=== PATIENT | female | born 1990 | race Caucasian/White ===

== ENCOUNTER 2022-08-17 08:31 | Emergency (ER) | payer SELFPAY ==
--- OUTSIDE RECORDS SUMMARY | 2022-08-17 08:37 | XMS REPORT | Continuity of Care Document ---
:1990 Author Organization [facility] t Address [address] [place] [address] Dr. [address] [place] [address] Care Team Providers Name Role Phone Asked, No Pcp Primary Care Physician Unavailable Abimbola Lincoln MD Attending Clinician Yony Vasques MD Attending Clinician Regina Ruiz Attending Clinician Unavailable Shreyas Craig DO Attending Clinician [phone] Rosalind Cueto MD Attending Clinician Candace Boo MD Attending Clinician [phone] Candace Toribio Attending Clinician Unavailable Andi Mojica MD Attending Clinician Torrey Javed Attending Clinician Unavailable QUENTIN BARAJAS Attending Clinician Unavailable MD KENNA LOPEZ Attending Clinician Unavailable ANDI LEÓN Attending Clinician Unavailable DO DANILO SHEPHERD Attending Clinician Unavailable DANILO SHEPHERD Attending Clinician Unavailable KIMBERLY CARROLL Attending Clinician Unavailable DANIELA BECKER Attending Clinician Unavailable Physician, No Primary or Family Admitting Clinician UnavailQUENTIN Talavera Admitting Clinician Unavailable JESSICA, MD KENNA NICOLAS Admitting Clinician Unavailable VASQUES, ANALYTICAL SCIENTIST THUYTRAN THI Admitting Clinician Unavailable Payers Payer Name Policy Type Policy Number Effective Date Expiration Date S ource Problems Condition Condition Condition Status Onset Resolution Last Treating Co mments Source Name Details Category Date Date Treatment Clinician Date Symptomati Symptomati Disease Active 2020-0 M ethodi c c 6-02 [facility] cholelithi 00:00: Ho spita asis asis 00 l Allergies, Adverse Reactions, Alerts Allergy Allergy Status Severity Reaction(s) Onset Inactive Treating Comm ents Source Name Type Date Date Clinician No Known DA Active U 2020-0 [facility] All[facility]ie 7-10 Clear s 00:00: Willson [facility] No Known DA Active U 2020-0 [facility] Allergie 7-10 Clear s 00:00: Willson [facility] No Known DA Active U 2020-0 [facility] Allergie 1-24 Clear s 00:00: Willson [facility] No Known DA Active U 2019-0 [facility] Allergie 5-07 Clear s 00:00: Willson [facility] No Known DA Active U 2019-0 [facility] Allergie 3-20 Clear s 00:00: Willson [facility] No Known DA Active U 2019-0 [facility] Allergie 2-13 Clear s 00:00: Willson [facility] No Known DA Active U 2017-1 [facility] Allergie 1-27 Clear s 00:00: Willson [facility] No Known DA Active U 2009-0 [facility] Contrast 3-26 [place] Allergie 00:00: e s [facility] No Known DA Active U 2009-0 [facility] Drug 3-26 [place] Allergie 00:00: e s [facility] No Known DA Active U 2009-0 [facility] Food 3-26 [place] Allergie 00:00: e s [facility] No Known DA Active U 2009-0 [facility] Other 3-26 [place] Allergie 00:00: e s [facility] No Known DA Active U 2008-1 [facility] Drug 2-09 [place] Intolera 00:00: e [facility] 00 [facility] No Known DA Active U 2008-1 [facility] Drug 2- [place] Int[facility]era 00:00: e [facility] 00 [facility] Family History Family Member Diagnosis Comments Start Date Stop Date Source Natural father Hypertension [facility] Natural father Stroke [facility] mother [facility] Natural mother Hypertension [facility] Paternal grandmother Diabetes [facility] Paternal grandmother Hypertension [facility] Paternal grandmother Stroke [facility] Social History Social Habit Start Date Stop Date Quantity Comments Source History of Current smoker [facility] Alcohol intake 2022-06-23 2022-06-23 Current [facility] 00:00:00 00:00:00 non-drinker of Hospital alcohol (finding) Tobacco use and 2022-01-02 2022-01-02 [facility]user Hospital Sex Assigned At [birth year] [facility] 00:00[facility]00 00:00:00 Hospital Smoking Status Start Date Stop Date Source Ex-smoker 2022-01-02 00:00:00 2022-01-02 00:00:00 [facility] Medications Ordered Filled Start Stop Current Ordering Indication Dosage Frequency Signature Comments Components Source Medication Medication Date Date Medication? Clinician (SIG) Name Name ondansetron 2021- No 4mg Q8H Take 1 Met hodi ODT 06-23 10-02 tablet (4 st (ZOFRAN-ODT 00:00: 04:59 mg total) Hospita ) 4 MG 00 :00 by mouth l disintegrat every 8 ing tablet (eight) hours as needed for nausea or vomiting for up to 5 days. butalbital- 2021- No 1{tbl} Q6H Take 1 M ethodi acetaminoph 06-23 09-[address] en-caff 00:00: 04:59 mouth Hospita (Esgic) 00 :00 every 6 l 50-325-40 (six) mg per hours as tablet needed for headaches for up to 3 days. metoclopram 2021- No 10mg Q8H Take 1 Met hodi jessica 8-17 08-25 tablet (10 st (REGLAN) 10 00:00: 04:59 mg total) Hospita MG tablet 00 :00 by mouth l every 8 (eight) hours as needed (headache) for up to 7 days. ondansetron 2021- No 4mg Q12H Take 1 Met hodi (ZOFRAN) 4 6-20 07-21 tablet (4 st MG tablet 00:00: 04:59 mg total) Ho spita 00 :00 by mouth l every 12 (twelve) hours as needed for nausea for up to 30 days. levoFLOXaci 2021- No 750mg QD Take 1 Me thodi n 03-[address] (Levaquin) 00:00: 04:59 (750 mg Hos rain 750 MG 00 :00 total) by l tablet mouth daily for 5 days. acetaminoph No 5mL Q6H Take 5 mL Methodi en with 03-[address] codeine 00:00: 04:59 every 6 Hospit a (acetaminop 00 :00 (six) l hen-codeine hours as ) 120-12 needed for mg/5 mL moderate solution pain or severe pain for up to 5 days .acute pain. benzonatate Yes 100mg Q.[id number] Take 1 Methodi (TESSALON) 03-[id number] 100 MG 00:00: 3D (100 mg Hospita capsule 00 total) by l mouth 3 (three) times a day as needed for cough. albuterol 2021- No 2{puff} Q4H Inhale 2 Methodi (PROAIR 03-[address] HFA) 90 00:00: 04:59 every 4 Hospit a mcg/actuati 00 :00 (four) l on inhaler hours as needed for wheezing or shortness of breath for up to 30 days. amoxicillin 2021- No 1{tbl} Q12H Take 1 M ethodi -pot 11-25-[address] clavulanate 00:00: 05:59 mouth Hosp kerry (AUGMENTIN) 00 :00 every 12 l 875-125 mg (twelve) per tablet hours for 7 days. traMADoL No 50mg Q8H Take 1 Metho di (ULTRAM) 50 11-25- tablet (50 s t mg tablet 00:00: 05:59 mg total) Ho spita 00 :00 by mouth l every 8 (eight) hours as needed for moderate pain for up to 3 days .acute pain. Vital Signs Vital Name Observation Time Observation Value Comments Source Systolic blood 2022-06-24 02:34:48 139 mm[Hg] [facility] pressure Diastolic blood 2022-06-24 02:34:48 89 mm[Hg] [facility] pressure Heart rate 2022-06-24 02:34:48 79 /min [facility] Body temperature 2022-06-24 02:34:48 36.22 Jerrica [facility] Respiratory rate 2022-06-24 02:34:48 20 /min [facility] Oxygen saturation in 2022-06-24 02:34:48 99 /min [facility] Arterial blood by Pulse oximetry Body height 2022-06-24 00:39:00 162.6 cm [facility] Body weight 2022-06-24 00:39:00 113.399 kg [facility] BMI 2022-06-24 00:39:00 42.91 kg/m2 [facility] Procedures Procedure Date / Time Performing Clinician Source Performed CT HEAD WO CONTRAST 2022-06-24 02:05:05 IsidroAbimbola [facility] CT CERVICAL SPINE WO 2022-06-24 02:04:[address] [facility] CONTRAST ED REFERRAL TO [facility] 2022-05-14 13:11:51 Yony Vasques [facility] ROMAN CATHOLIC PHYSICIAN ORGANIZATION (PCP) ED REFERRAL TO [facility] 2022-03-17 [facility]PCP[facility] ECG 12-LEAD 2022-03-17 05:38:10 [facility] gray Vitaliy ECG ED PRELIMINARY 2022-03-17 04:44:21 [facility] INTERPRETATION Vitaliy HCG QUALITATIVE, URINE 2022-03-17 03:49:00 [facility]ST 2 VW 2022-03-17 03:46:29 [facility] gray Burks GROUP A STREP, RAPID 2022-03-17 03:32:00 [facility] ANTIGEN Vitaliy INFLUENZA ANTIGEN 2022-03-17 03:32:00 [facility] Vitaliy RESPIRATORY PATHOGEN 2022-03-17 03:32:00 [facility] PANEL WITH COVID-19 Vitaliy RT-PCR STREP SCREEN CULTURE 2022-03-17 03:32:00 [facility] CHEST 2 VW 2022-03-03 13:27:46 [facility] INFLUENZA ANTIGEN 2022-03-03 13:02:00 [facility] RESPIRATORY PATHOGEN 2022-03-03 13:02:00 [facility] PANEL WITH COVID-19 RT-PCR ECG ED PRELIMINARY 2022-03-03 12:53:04 Rosalind Cueto [facility] INTERPRETATION ECG 12-LEAD 2022-03-03 12:42:43 [facility] Plan of Care Planned Activity Planned Date Details Comments Source Future Scheduled 2022-07-31 HEPATITIS B VACCINES Met [facility] Test 16:34:59 (1 of 3 - 3-dose series) [code = HEPATITIS B VACCINES (1 of 3 - 3-dose series)] Future Scheduled 2022-07-31 Pneumococcal Vaccine: [facility] Test 16:34:59 Pediatrics (0 to 5 Years) and At-Risk Patients (6 to 64 Years) (1 - PCV) [code = Pneumococcal Vaccine: Pediatrics (0 to 5 Years) and At-Risk Patients (6 to 64 Years) (1 - PCV)] Future Scheduled 2022-07-31 Hepatitis C screening [facility] Test 16:34:59 (procedure) [code = 879970402] Future Scheduled 2022-07-31 Screening for [facility] Test 16:34:59 malignant neoplasm of cervix (procedure) [code = 931251361] Future Scheduled 2022-07-31 COVID-19 VACCINE (2 - [facility] Test 16:34:59 Pfizer series) [code = COVID-19 VACCINE (2 - Pfizer series)] Future Scheduled 2022-07-31 INFLUENZA VACCINE Method [facility] Test 16:34:59 [code = INFLUENZA VACCINE] Encounters Start End Encounter Admission Attending Care Care Encounter Source Date/Time Date/Time Type Type Clinicians Facility Department ID 2019-10-21 Inpatient [facility] FERS [id number] [facility] 19:27:00 60 [facility] 2022-06-23 2022-06-24 Emergency Isidro, 1.2.840.1 [id number] Methodi 20:41:00 06:17:00 Abimbola H [address].1.[address] 3.430.2.7 Hospit a .3.929597 l .8 2022-06-23 2022-06-24 Emergency ISIDRO, [place] [address] [id number] 236 [place] 00:00:00 00:00:00 ABIMBOLA [address] 2022-06-23 2022-06-23 Travel 1.2.840.1 1.2.824.306 1474 [id number] Methodi 00:00:00 00:00:[address] 3.430.2.7 0.2.7.3.698 Ho spita .3.806977 084.8 l .8 2022-05-14 2022-05-14 Emergency Vasques, 1.2.840.1 [id number] [id number] Methodi 08:02:00 08:37:00 [facility] [address] [place] 3.430.2.7 Hospit a .3.950156 l .8 2022-05-14 2022-05-14 Emergency [place] [address] [id number] 42 [place] 00:00:00 00:00:00 [facility] [address] 2022-05-14 2022-05-14 Travel 1.2.840.1 1.2.815.382 4847 [id number] Methodi 00:00:00 00:00:[address] 3.430.2.7 0.2.7.3.698 Ho spita .3.034524 084.8 l .8 2022-05-05 2022-05-05 Emergency EM Dark, Regina [facility] CHASITY [id number] [id number] [facility] 09:09:00 09:40:00 47 [facility] 2022-05-05 2022-05-05 Emergency EM Dark, Regina HCACL [facility] G684 430-20 [facility] 09:09:00 09:40:00 [id number] [facility] 2022-03-16 2022-03-17 Emergency Rafa, 1.2.840.1 [id number] 2100 [id number] Methodi 22:26:00 01:14:[address] Mehran 3.430.2.7 Hosp kerry .3.874825 l .8 2022-03-16 2022-03-17 Emergency RAFA, [facility] 064 [id number] 16 [place] 00:00:00 00:00:[address] KALIF [address] 2022-03-03 2022-03-03 Emergency Adelso 1.2.840.1 [id number] Methodi 07:35:00 09:19:00 Rosal[address] 3.430.2.7 Hospit a .3.937116 l .8 2022-03-03 2022-03-03 Emergency ROSALIND LEAVITT [facility] 064 [id number] [place] 00:00:00 00:00:[address] 2022-01-02 2022-01-02 Emergency de Hernandez, 1.2.840.1 [id number] Methodi 17:02:00 18:15:00 Christmo 51742.1.1 988 [facility] 3.430.2.7 Hospit a .3.526523 l .8 2022-01-02 2022-01-02 Emergency DE HERNANDEZ, [facility] 064 [id number] [place] 00:00:00 00:00:[address]ANDACE [address] 2022-01-02 2022-01-02 Travel 1.2.840.1 1.2.940.157 [id number] [id number] Methodi 00:00:00 00:00:[address] 3.430.2.7 0.2.7.3.698 Ho spita .3.166214 084.8 l .8 2021-12-26 2021-12-26 Emergency EM Catarino, [facility] CHASITY [id number] [facility] 09:46:00 12:31:00 Christmo [id number] [facility] 2021-12-26 2021-12-26 Emergency EM Nwori, HCACL HCACL [id number] [facility] 09:46:00 12:31:00 Christopher 88 [facility] 2021-11-25 2021-11-26 Emergency Edwardo, 1.2.840.1 [id number] 2100 [id number] Methodi 22:58:00 00:58:[address]i [address] [place] [address] 3.430.2.7 Hospit a .3.011038 l .8 2021-11-25 2021-11-26 Emergency EDWARDO, [place] [address] [id number] 74 [place] 00:00:00 00:00:00 ANDI 475 Method i 2021-04-10 2021-04-10 Emergency EDWARDO, [place] [address] [id number] 65 [place] 00:00:00 00:00:00 ANDI 595 Method i 2021-04-05 2021-04-06 Emergency EM Tello, HCACL [facility] [id number] [facility] 23:38:00 02:26:00 [place] [id number] [facility] 2021-03-12 2021-03-12 Emergency KENDCHERRY, [place] [address] [id number] 47 [place] 00:00:00 00:00:00 KALIF 048 Method i 2021-02-27 2021-02-28 Inpatient BARAJAS, [place] [address] [id number] [id number] 769 [place] 00:00:00 00:00:00 QUENTIN 164 Method i 2021-02-16 2021-02-16 Emergency LEÓN, [place] [address] [id number] 38 [place] 00:00:00 00:00:00 ANDI 405 Method i 2020-12-28 2020-12-28 Emergency ISIDRO, [place] [address] 350 [id number] 558 [place] 00:00:00 00:00:00 ABIMBOLA 175 Method i 2020-07-14 2020-07-14 Emergency EDWARDO, [place] [address] [id number] 48 [place] 00:00:00 00:00:00 ANDI 585 Method i 2020-05-15 2020-05-15 Emergency NORLUPILLOKY, [place] [address] [id number] [place] 00:00:00 00:00:00 DANILO [address] 2020-04-28 2020-04-28 Emergency GLEN, [facility] 064 [id number] 90 [place] 00:00:00 00:00:00 KIMBERLY Hill [facility] 2020-02-18 2020-02-18 Emergency VANDER [facility] 064 [id number] 64 [place] 00:00:00 00:00:00 Debbie BURKS Method i DANIELA st Results Test Description Test Time Test Comments Results Result Comments Source ECG 12 lead 2022-03-26 20:01:10 Test Item Value Reference Range Interpretation Comme nts Ventricular rate (test code = 253) Atrial rate (test code = 255) DE interval (test code = 266) QRSD interval (test code = 260) QT interval (test code = 264) QTC interval (test code = 265) P axis 1 (test code = 267) QRS axis 1 (test code = 268) T wave axis (test code = 270) EKG impression (test code = 273) Normal sinus rhythm-Cannot rule ou t Anterior infarct , age undetermined-Abnormal ECG-In automated comparison with ECG of 03-MAR-2022 07:42,-No significant change was found- [facility] [id number] 11:15:00 Test Item Value Reference Range Interpretation Comments Strep screen No beta hemolytic Specimen culture Streptococci InformationSpec imen isolate (test isolated Source: Throat Specimen code = 547-0) Site: Not othe rwise specified [facility]- XR WRIST 3 + V [id number] 00:00:00 [facility] LAKEName: REYNA EARLY : 1990 Sex: F FAX: Winnie Martinez [facility] [phone] [place]: St: REG Name: REYNA EARLY [facility] : 1990 Age/S: 31/F [address] [place] [address] Unit #: [id number] Loc: [place] [address] Phys: Winnie Begum Acct: [id number] Dis Date: Status: REG ER PHONE #: [phone] Exam Date: 12/26/2021 1015 FAX #: [phone] Reason: wrist pain EXAMS: CPT CODE: [id number] XR WRIST 3 + [place] LT 40424 PROCEDURE INFORMATION: Exam: XR Left Wrist Exam date and time: 12/26/2021 10:15 AM Age: 31 years old Clinical indication: Other: Wrist pain TECHNIQUE: Imaging protocol: XR Left wrist. Views: 3 or more views. Frontal Oblique Lateral COMPARISON: No relevant prior studies available. FINDINGS: Bones/joints: There is no fracture or dislocation. The joint spaces are maintained. Soft tissues: Unremarkable. There are no radiopaque foreign bodies. Notes: If there is further concern, follow-up radiographs, CT or MRImay be obtained for complete assessment. IMPRESSION: Normal radiographs. at 1120 Reported and signed by: Kendrick Watkins M.D. CC: Winnie Begum Technologist: RT Olivia(Ronit) Trncamryn Date/Time/By: 12/26/2021 (112) : By : Jase Orig Print D/T: S: 12/26/2021 (1121) PAGE 1 Signed Report- XR CHEST 1 [id number] 00:48:00 [facility] JIGNESHName: REYNA EARLY : 1990 Sex: F FAX: Torrey Javed MD [phone] [place]: St: REG FAX: Anca Smyth APR [phone] -- Name: REYNA EARLY [facility] Amari Willson : 1990 Age/S: 30/F [address] [place] [address] Unit #: [id number] Loc: [place] [address] Phys: Anca Smyth Acct: [id number] Dis Date: Status: REG ER PHONE #: [phone] Exam Date: 04/06/202141 FAX #: [phone] Reason: cough EXAMS: CPT CODE: [id number] XR CHEST 1 V 67174 Study: - XR CHEST 1 V 04/06/2021 12:21 AM Patient Name: REYNA EARLY MR: [id number] : 1990; Age: 30 years y/o Female Ordering Physician: Anca Smyth Clinical Indication: cough Comparison: Chest radiograph 10/21/2019 FINDINGS LUNGS: The hypoinflated lungs are clear of consolidation, pleural effusion, and pneumothorax. HEART AND MEDIASTINUM: Normal size heart. LINES: None. OSSEOUS STRUCTURES: No fracture, dislocation, or suspicious focal osseouslesion. OTHER: None. IMPRESSION: Mildly hypoinflated, but clear lungs. SL: TPAINTER-H at 0048 Reported and signed by: Lucas Nicole M.D. CC: Torrey Javed MD; Anca TRIPATHI [facility] Technologist: RT Magalie(R) Trnscrd Date/Time/By: 04/06/2021 (47) : By: [email or web address] Orig Print D/T: S: 04/06/2021 (50) PAGE 1 SignedReportCoronavirus 2018 nCoV [id number] 00:35:00 Test Item Value Reference Range Interpretation Comments Coronavirus 2019 NEGATIVE Negative Negative re sults should be nCoV Bedside (test treated a s presumptive and, code = ifinconsistent with [id number]) clinical signs and symptoms or necessaryfor patient management, nancy uld be tested with an alternativemole cular assay. Negative result s do not preclude GAAJ-CnD-1jijaf tion and should not be u sed as the sole basis forp atient management deci sions. Negative result s should beconsidered in the context of a patient's recent exposures,histo ry, presence of clinical sig ns and symptoms consis tentwith COVID-19. 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 ([facility]OVID-[facility]) RNA [Presence] in Respiratory specimen by KEENAN with probe [id number] 01:13:01 Test Item Value Reference Range Interpretation Comments SARS-CoV-2 (COVID-19) RNA Not detected Not-Detected [Presence] in Respiratory specimen by KEENAN with probe detection (test code = 37561-9) SAUL MARTINEZ [facility]- XR CHEST 2 [id number] 20:09:00 Name: REYNA [facility]LY [facility] : 1990 Age/S:29 /F [address] [facility] Unit#:[id number] Loc: [place] [address] Phys: Enrico Davies MD Dis Date: PHONE #: [phone] Status: REG ER FAX #: [phone] Exam Date: 10/21/2019 Reason: cough EXAMS: CPT CODE: [id number] XR CHEST 2 V 81231 REASON FOR EXAM: cough Exam Order Date: 10/21/2019 7:36 PM Ordering: Enrico Davies MD Attending:Enrico Davies MD Location: PROCEDURE: - XR CHEST 2 V COMPARISON: 12/15/2018 FINDINGS: PA and lateral views of the chest show patchy airspace opacity of the bases. No evidence of effusion. The heart size is within normal limits. Pulmonary vasculatures are unremarkable. The osseous structures are grossly intact. IMPRESSION: Patchy atelectasis at the bases at 2008 Reported and signed by: Jagdish Guaman M.D. CC: Enrico Davies MD Technologist: SALMA MARCIAL RT(R),RDMS,CT Trnscrpt Data: 10/21/2019 (2008) tGAYE Orig Print D/T: S: 10/21/2019 (2011) PAGE 1 Signed ReportCAPILLARY BLOOD [id number] 18:20:00 Test Item Value Reference Range Interpretation Comments TOTAL CO2 CONTENT TEST NOT 24.0-30.0 N Previously reported (test code = TCO2) PERFORMED MMOL/L resul t: 29.0 MMOL/LEdited by : THOMAS on 02/01/19:1808: TCO2 previously repo rted as: 29.0 MMOL/L CAPILLARY BLOOD TEST NOT 7.33-7.45 Previously r eported GAS PH (test code PERFORMED result: 7. 22 Edited = PHC) by: THOMAS o n 02/01/19:1807 02/01/191806: CBG PH previously reported as: 7. 22 L CAPILLARY BLOOD TEST NOT 35-45 Previously r eported GAS PCO2 (test PERFORMED mmHg result: 66 code = PCO2C) mmHgEdited by: THOMAS on 02/01/19:1807: CBG PCO 2 previously repo rted as: 66 *H mmHg CAPILLARY BLOOD TEST NOT 30-50 N Previously r eported GAS PO2 (test code PERFORMED mmHg result: 39 = PO2C) mmHgEdited by: THOMAS on 02/01/19:1807: CBG PO2 previously repo rted as: 39 mmHg CBG HCO3 (test TEST NOT 18-24 Previously re ported code = HCO3C) PERFORMED mmol/L result: 27 mmol/LEdited by : THOMAS on 02/01/19:1807: HCO3C previously repo rted as: 27 H mmol/L CBG BASE EXCESS TEST NOT -4-4 N Previously r eported (test code = BEC) PERFORMED mmol/L result : -1.0 mmol/LEdited by : THOMAS on 02/01/19:1807: BASE EX C previously repo rted as: -1.0 mmol/L CBG O2 SATURATION TEST NOT Previously reported (test code = SATC) PERFORMED % result: 6 3 %Edited by: THOMAS o n 02/01/19:1808: O2 SAT previously repo rted as: 63 % CAPILLARY BLOOD TEST NOT Previously r eported GAS FIO2 (test PERFORMED % result: 21 %E dited code = FIO2C) by: THOMAS on 02/01/19: 9 1808: FIO2 previously repo rted as: 21 % CAPILLARY BLOOD TEST NOT Previously r eported GAS DEL (test code PERFORMED result: I nfantVent = DELC) Edited by: CONSUELO RAYMOND on 02/01/19:1808: DELIVER Y previously repo rted as: InfantVent CAPILLARY BLOOD TEST NOT Performed by GAS PEEP (test PERFORMED cmH2O certified drawing machine operator code = PEEPC) [facility] reported result : [id number] by: [email or web address] on 03/07/19:1820 03/07/191819: PEEP previously repo rted as: cmH2O Perfo rmed by certified drawing machine operator [facility]Previously reported result : 7 [id number] by: THOMAS on 02/01/19:1808: PEEP previously repo rted as: 7 cmH2O Performed by certified opera tor at [facility] CBG TEMPERATURE TEST NOT Previously r eported (test code = PERFORMED F result: 98.0 FE dited TEMPC) by: THOMAS o n 02/01/19:1808: TEMPC previously repo rted as: 98.0 F CAPILLARY BLOOD TEST NOT Previously r eported GAS SITE (test PERFORMED result: Heel Edited code = SITEC) by: THOMAS on 02/01/19:1808: SITE previously repo rted as: Heel VENOUS BLOOD [id number] 18:19:00 Test Item Value Reference Range Interpretation Comments VENOUS BLOOD GAS TEST NOT 7.33-7.45 Previously reported PH (test code = PERFORMED result: 7.11 Edited PHV) by: THOMAS o n 02/01/19:1808: PH previo usly reported as: 7. 11 L VENOUS BLOOD GAS TEST NOT 43-47 Previously reported PCO2 (test code PERFORMED mmHg result: 82 mmHgEdited = PCO2V) by: THOMAS o n 02/01/19:1808: VENOUS PC O2 previously repo rted as: 82 *H mmHg VENOUS BLOOD GAS TEST NOT 10-50 N Previously reported PO2 (test code = PERFORMED mmHg result: 3 2 mmHgEdited PO2V) by: THOMAS o n 02/01/19:1809: VENOUS PO 2 previously repo rted as: 32 mmHg VBG HCO3 (test TEST NOT 22-27 N Previously re ported code = HCO3V) PERFORMED mmol/L result: 26 .4 mmol/LEdited by : THOMAS on 02/01/19:1809: HCO3 prev iously reported as: 26 .4 mmol/L VBG BASE EXCESS TEST NOT -4.0-4.0 N Previously r eported (test code = PERFORMED mmol/L result: -3. 0 HERMAN) mmol/LEdited by : THOMAS on 02/01/19:180902/01/191809: HERMAN previously repo rted as: -3.0 mmol/L VENOUS BLOOD GAS TEST NOT 60-80 Previously reported O2 SAT. (test PERFORMED % result: 42 %Ed ited code = O2SATV) by: THOMAS on 02/01/19:1809: O2 SAT previously repo rted as: 42 L % VENOUS BLOOD GAS TEST NOT Previously reported FIO2 (test code PERFORMED % result: 22 % Edited = FIO2V) by: THOMAS o n 02/01/19:1809: FIO2 prev iously reported as: 22 % VENOUS BLOOD GAS TEST NOT Previously reported DELIVERY (test PERFORMED result: Infan tVent code = DELV) Edited by: CONSUELO RAYMOND on 02/01/19:1809: DEL previ ously reported as: InfantVent VBG VENT MODE TEST NOT Previously rep orted (test code = PERFORMED result: Inf CPA P MODEV) Edited by: CONSUELO RAYMOND on 02/01/19:1809: MODE prev iously reported as: In f CPAP VENOUS BLOOD GAS TEST NOT Performed b y PEEP (test code PERFORMED cmH2O certified drawing machine operator at = PEEPV) [facility] reported result : [id number] by: [email or web address] on 03/07/19:181803/07/191818: VBG PEEP previously reported as: cm H2O Performed by certified [facility] reported result : 5 [id number] by: THOMAS on 02/01/19:1810 02/01/191809: VBG PEEP previously reported as: 5 cmH2O Performed by certified [facility] VENOUS BLOOD GAS TEST NOT Previously reported TEMP (test code PERFORMED F result: 97.6 FEdited = TEMPV) by: THOMAS o n 02/01/19:6989841809: TEMPV previously repo rted as: 97.6 F VENOUS BLOOD GAS Other SITE (test code = SITEV) VENOUS TCO2 TEST NOT Previously repo rted (test code = PERFORMED result: 29 Edit ed by: TCO2V) THOMAS on 02/01/19:1809: TCO2V previously repo rted as: 29 - CT ABD PELVIS [id number] 00:56:00 Name: REYNA EARLY [facility] : 1990 Age/S: 28 / F [address] [place] [address] Unit #: [id number] Loc: [place] [address] Phys: Winnie Begum RESIDENTIAL SUBCONTRACTOR Acct: [id number] Dis Date: Status: REG ER PHONE #: [phone] Exam Date: 02/07/201936 FAX #: [phone] Reason: s/p , upper abd pain and fevers. EXAMS: CPT CODE: [id number] CT ABD PELVIS W/CONT 73672 EXAM: CT, CT ABDOMEN PELVIS W CONTRAST: 02/07/2019, 0039 hours HISTORY: s/p , upper abd pain and fevers. COMPARISON: None available. TECHNIQUE: Helical imaging was performed from diaphragm through the symphysis with coronal and sagittal reconstructions. CT imaging was performed with exposure control parameters to reduce radiation dose. IV CONTRAST: 100 cc Isovue. GI CONTRAST: YES CT Radiation Dose: DLP = 684.96 mGy-cm FINDINGS: LOWER CHEST: The visualized lung bases are clear. LIVER: Unremarkable. GALLBLADDER: Unremarkable. INTRAHEPATIC BILE DUCT AND EXTRAHEPATIC BILE DUCT: Unremarkable. PANCREAS: Unremarkable. SPLEEN: Unremarkable. ADRENALS: Unremarkable. KIDNEYS AND URETERS: A punctate bilateral renal stone. No hydronephrosis seen.. STOMACH: Unremarkable. BOWEL: Mildly prominent fluid-filled small and large bowel loops most likely due to diarrheal condition. APPENDIX: Not seen on the exam. No inflammatory changes in the right lower flank. PERITONEUM AND RETROPERITONEUM: No ascites or free air. There is no aortic aneurysm or dissection. Fat-containing umbilical hernia. Mild inflammatory changes in the subcutaneous fat around the umbilicus with trace subcutaneous air probably due to recent procedure. LYMPH NODES: Unremarkable. PELVIS: No pelvic mass or adenopathy. Enlarged uterus.Ovaries are not visualized. BLADDER: Unremarkable. OSSEOUS STRUCTURES: Suboptimally seen bilateral pars defect at L5 with PAGE 1 Signed Report (CONTINUED) Name[facility] 1990 Age/S: 28 / F [address] [place] [address] Unit #: [id number] Loc: [place] [address] Phys: Winnie Begum RESIDENTIAL SUBCONTRACTOR Acct: [id number] Dis Date: Status: REG ER PHONE #: [phone] Exam Date: 02/07/2019 0037 FAX #: [phone] Reason: s/p c- section, upper abd pain and fevers. EXAMS: CPT CODE: [id number] CT ABD PELVIS W/CONT 62586 (Continued) slight anterior listhesis of L5 on S1. Mild deg enerative changes at L5-S1. SOFT TISSUES: Mild bilateral and edematous changes in the lateral lowerabdominal wall and the subcutaneous tissue of the lumbar region. IMPRESSION: 1. Mildly prominent fluid-filled small and large bowel loops most likely due to diarrheal condition. No bowel obstruction seen. 2. Periumbilical subcutaneous edema and inflammatory changes with trace subcutaneous air, probably due to recent procedure. 3. Punctate bilateral renal stones. No hydronephrosis seen. 4. Enlarged uterus. 5. Small fat- containing umbilical hernia. SL: JSYED-H at 0056 Reported and signed by: Jairo Reynolds M.D. CC: Violeta Grijalva DO; Gabriel Torres MD; Winnie Begum NP Technologist:RT Tigre(R) CTDI: DLP: TrnscbDate/Time: 02/07/2019 (55) [email or web address] Orig Print D/T: S: 02/07/2019 (005) PAGE 2 Signed Report COMPREHENSIVE METABOLIC [id number] 23:40:00 Test Item Value Reference Range Interpretation Comments SODIUM (test code = NA) 141 mEq/L 134-147 N POTASSIUM (test code = 4.2 mEq/L 3.4-5.0 N K) CHLORIDE (test code = 106 mEq/L 100-108 N CL) CARBON DIOXIDE (test 28 mEq/L 21-33 N code = CO2) ANION GAP (test code = 11 0-20 N GAP) GLUCOSE (test code = 107 mg/dL 70-110 N GLU) BLOOD UREA NITROGEN 15 mg/dL 7-18 N (test code = BUN) GLOMERULAR FILTRATION 119.0 110-120 N Units of measure = RATE (test code = GFR) ml/mi n/1.73 m2 CREATININE (test code = 0.6 mg/dL 0.6-1.3 N CREAT) TOTAL PROTEIN (test 6.9 g/dL 6.4-8.2 N code = PROT) ALBUMIN (test code = 2.70 g/dL 3.4-5.0 L ALB) CALCIUM (test code = 8.5 mg/dL 8.0-10.5 N CA) BILIRUBIN TOTAL (test 0.20 mg/dL 0.0-1.0 N code = BILT) SGOT/AST (test code = 56 IUnit/L 15-37 H AST) SGPT/ALT (test code = 32 IUnit/L 15-65 N ALT) ALKALINE PHOSPHATASE 89 IUnit/L 20-125 N TOTAL (test code = ALKP) COMPREHENSIVE METABOLIC [id number] 23:36:00 Test Item Value Reference Range Interpretation Comments SODIUM (test code = NA) 141 mEq/L 134-147 N POTASSIUM (test code = 4.2 mEq/L 3.4-5.0 N K) CHLORIDE (test code = 106 mEq/L 100-108 N CL) CARBON DIOXIDE (test 28 mEq/L 21-33 N code = CO2) ANION GAP (test code = 11 0-20 N GAP) GLUCOSE (test code = 107 mg/dL 70-110 N GLU) BLOOD UREA NITROGEN 15 mg/dL 7-18 N (test code = BUN) GLOMERULAR FILTRATION 119.0 110-120 N Units of measure = RATE (test code = GFR) ml/mi n/1.73 m2 CREATININE (test code = 0.6 mg/dL 0.6-1.3 N CREAT) TOTAL PROTEIN (test g/dL 6.4-8.2 code = PROT) ALBUMIN (test code = 2.70 g/dL 3.4-5.0 L ALB) CALCIUM (test code = 8.5 mg/dL 8.0-10.5 N CA) BILIRUBIN TOTAL (test mg/dL 0.0-1.0 code = BILT) SGOT/AST (test code = 56 IUnit/L 15-37 H AST) SGPT/ALT (test code = 32 IUnit/L 15-65 N ALT) ALKALINE PHOSPHATASE IUnit/L 20-125 TOTAL (test code = ALKP) CBC W/AUTO [id number] 23:33:00 Test Item Value Reference Range Interpretation Comments WHITE BLOOD CELL (test code = 10.71 x10 3/uL 4.5-11.0 N WBC) RED BLOOD CELL (test code = 4.04 x10 6/uL 3.54-5.02 N RBC) HEMOGLOBIN (test code = HGB) 11.8 g/dL 11.0-15.0 N HEMATOCRIT (test code = HCT) 36.7 % 33.0-45.0 N MEAN CELL VOLUME (test code = 90.8 fL 81.0-99.0 N MCV) MEAN CELL HGB (test code = 29.2 pg 27.0-33.0 N MCH) MEAN CELL HGB CONCETRATION 32.2 g/dL 33.0-37.0 L (test code = MCHC) RED CELL DISTRIBUTION WIDTH CV 14.0 % 11.5-14.5 N (test code = RDW) RED CELL DISTRIBUTION WIDTH SD 47.2 fL 37.0-54.0 N (test code = RDW-SD) PLATELET COUNT (test code = 332 x10 3/uL 150-400 N PLT) MEAN PLATELET VOLUME (test 9.9 fL 7.0-9.0 H code = MPV) NEUTROPHIL % (test code = NT%) 85.1 % 56.0-77.0 H IMMATURE GRANULOCYTE % (test 0.9 % 0.0-2.0 N code = IG%) LYMPHOCYTE % (test code = LY%) 7.7 % 14.0-32.0 L MONOCYTE % (test code = MO%) 4.6 % 4.8-9.0 L EOSINOPHIL % (test code = EO%) 1.4 % 0.3-3.7 N BASOPHIL % (test code = BA%) 0.3 % 0.0-2.0 N NUCLEATED RBC % (test code = 0.0 % 0-0 N NRBC%) NEUTROPHIL # (test code = NT#) 9.12 x10 3/uL 2.0-7.6 H IMMATURE GRANULOCYTE # (test 0.10 x10 3/uL 0.00-0.03 H code = IG#) LYMPHOCYTE # (test code = LY#) 0.82 x10 3/uL 1.0-3.8 L MONOCYTE # (test code = MO#) 0.49 x10 3/uL 0.1-0.8 N EOSINOPHIL # (test code = EO#) 0.15 x10 3/uL 0.0-0.2 N BASOPHIL # (test code = BA#) 0.03 x10 3/uL 0.0-0.2 N NUCLEATED RBC # (test code = 0.00 x10 3/uL 0.0-0.1 N NRBC#) MANUAL DIFF REQUIRED (test NO code = MDIFF) SURGICAL [id number] 08:10:00 RUN DATE: 02/04/19 [facility] *LIVE* PAGE 1 RUN TIME: 0810 Specimen Inquiry RUN USER: INTERFACE -------- ----PATIENT: REYNA EARLY LOC: [facility] U #: [id number] AGE/SX: 28/F [place] [facility] [place] DR: Gabriel Torres MD : 89 BED: 1 DIS: STATUS: ADM IN TLOC: SPEC #: [id number] RECD: 02/02/19 STATUS: NASIM KARAN #: [id number] [place]: 02/02/19 [facility] DR: Gabriel Torres MD ENTERED: 02/03/19 SP TYPE: SURG SPEC OTHR DR: Self Referred Erick Carbajal MD, JR, Patrick MDORDERED: GM LEVEL 4 CODES: [id number] - FALLOPIAN TUBE [id number] - PLACENTA, NOS COPIES TO: Self Referred Gabriel Torres MD [address] [place] [phone] [email or web address] Ercik Carbajal MD [address] [address] [email or web address] Roderick Varela MD [address] [facility] [address] [place] [address] PROCEDURES: GM LEVEL 4 (Incomplete) TISSUES: 1. PLACENTA, NOS - Placenta, 3rd trimester. 2. FALLOPIAN TUBE, NOS - Fallopian tube, right, segment 3. FALLOPIAN TUBE, NOS - Fallopian tube, left, segment FINAL DIAGNOSIS Placenta, 3rd trimester: Jose placenta (458 g, 75th percentile for gestational age). Fallopian tube, right, segment: Complete cross section of fallopian tube. Fallopian tube, left, segment: Complete cross section offallopian tube. CONTINUED ON NEXT PAGE RUN DATE: 02/04/19 [facility] *LIVE* PAGE 2 RUN TIME: 0810 Specimen Inquiry RUN USER: INTERFACE SPEC #: [id number] PATIENT: REYNA EARLY #[id number] (Kate nued) GROSS AND MICROSCOPIC GROSS EXAMINATION: Received in formalin labeled placenta is a 458 g 18 x 15 x 2.4cm placenta. The surface is bluegray with tortuous vessels on the surface. Maternal surface isintact with adherent hemorrhage. The eccentrically inserted 3 vessel umbilical cord measures 13 cm in length 1.9 cm in diameter with false knots. It is beefy red without identifiable lesions. SECTION CODE: (A) Membranes (B) umbilical cord (C)-(E) placental parenchyma. Received in formalin labeled right fallopian tube is a 5 cm in length 0.8 cm in diameter fallopian tube (F). Received in formalin labeled left fallopian tube is a 5 cm in length 0.9 cm in diameter fallopian tube (G). MICROSCOPIC EXAMINATION: Sections of the umbilical cord reveal three vessels without significant inflammation. The membranes are unremarkable. The surface of the placenta does not show a significant inflammatory infiltrate. Maturation is appropriate for gestational age. The underlying maternal decidua beneath the placenta contains a mixed inflammatory infiltrate. Each fallopian tube is seen in completecross-section without significant atypia. POST-OP DIAGNOSIS induced hypertension, GBS unkno wn, repeat with bilateral tubal ligation, delivered PRE-OP DIAGNOSIS induced hypertension, GBS unknown, repeat with bilateral tubal ligation, delivered Signed SIGNATURE ON FILE MurraypanfiloDomenico DO 02/04/19 0810 END OF REPORT CBC W/AUTO [id number] 07:37:00 Test Item Value Reference Range Interpretation Comments WHITE BLOOD CELL (test code = 10.13 x10 3/uL 4.5-11.0 N WBC) RED BLOOD CELL (test code = 3.31 x10 6/uL 3.54-5.02 L RBC) HEMOGLOBIN (test code = HGB) 9.9 g/dL 11.0-15.0 L HEMATOCRIT (test code = HCT) 31.2 % 33.0-45.0 L MEAN CELL VOLUME (test code = 94.3 fL 81.0-99.0 N MCV) MEAN CELL HGB (test code = 29.9 pg 27.0-33.0 N MCH) MEAN CELL HGB CONCETRATION 31.7 g/dL 33.0-37.0 L (test code = MCHC) RED CELL DISTRIBUTION WIDTH CV 14.8 % 11.5-14.5 H (test code = RDW) RED CELL DISTRIBUTION WIDTH SD 51.1 fL 37.0-54.0 N (test code = RDW-SD) PLATELET COUNT (test code = 294 x10 3/uL 150-400 N PLT) MEAN PLATELET VOLUME (test 10.8 fL 7.0-9.0 H code = MPV) NEUTROPHIL % (test code = NT%) 60.4 % 56.0-77.0 N IMMATURE GRANULOCYTE % (test 1.2 % 0.0-2.0 N code = IG%) LYMPHOCYTE % (test code = LY%) 28.0 % 14.0-32.0 N MONOCYTE % (test code = MO%) 9.3 % 4.8-9.0 H EOSINOPHIL % (test code = EO%) 0.7 % 0.3-3.7 N BASOPHIL % (test code = BA%) 0.4 % 0.0-2.0 N NUCLEATED RBC % (test code = 0.0 % 0-0 N NRBC%) NEUTROPHIL # (test code = NT#) 6.12 x10 3/uL 2.0-7.6 N IMMATURE GRANULOCYTE # (test 0.12 x10 3/uL 0.00-0.03 H code = IG#) LYMPHOCYTE # (test code = LY#) 2.84 x10 3/uL 1.0-3.8 N MONOCYTE # (test code = MO#) 0.94 x10 3/uL 0.1-0.8 H EOSINOPHIL # (test code = EO#) 0.07 x10 3/uL 0.0-0.2 N BASOPHIL # (test code = BA#) 0.04 x10 3/uL 0.0-0.2 N NUCLEATED RBC # (test code = 0.00 x10 3/uL 0.0-0.1 N NRBC#) MANUAL DIFF REQUIRED (test NO code = MDIFF) COMMENTS: POD #1 and #2COMPREHENSIVE METABOLIC [id number] 05:40:00 Test Item Value Reference Range Interpretation Comments SODIUM (test code = NA) 140 mEq/L 134-147 N POTASSIUM (test code = 3.8 mEq/L 3.4-5.0 N K) CHLORIDE (test code = 109 mEq/L 100-108 H CL) CARBON DIOXIDE (test 24 mEq/L 21-33 N code = CO2) ANION GAP (test code = 11 0-20 N GAP) GLUCOSE (test code = 144 mg/dL 70-110 H GLU) BLOOD UREA NITROGEN 15 mg/dL 7-18 (test code = BUN) GLOMERULAR FILTRATION 99.6 110-120 L Units of measure = RATE (test code = GFR) ml/mi n/1.73 m2 CREATININE (test code = 0.7 mg/dL 0.6-1.3 N CREAT) TOTAL PROTEIN (test 6.3 g/dL 6.4-8.2 L code = PROT) ALBUMIN (test code = 2.30 g/dL 3.4-5.0 L ALB) CALCIUM (test code = 8.5 mg/dL 8.0-10.5 N CA) BILIRUBIN TOTAL (test 0.10 mg/dL 0.0-1.0 code = BILT) SGOT/AST (test code = 19 IUnit/L 15-37 N AST) SGPT/ALT (test code = 16 IUnit/L 15-65 N ALT) ALKALINE PHOSPHATASE 95 IUnit/L 20-125 N TOTAL (test code = ALKP) COMMENTS: POD #1CBC W/AUTO [id number] 05:36:00 Test Item Value Reference Range Interpretation Comments WHITE BLOOD CELL (test code = 15.65 x10 3/uL 4.5-11.0 H WBC) RED BLOOD CELL (test code = 3.36 x10 6/uL 3.54-5.02 L RBC) HEMOGLOBIN (test code = HGB) 10.0 g/dL 11.0-15.0 L HEMATOCRIT (test code = HCT) 31.1 % 33.0-45.0 L MEAN CELL VOLUME (test code = 92.6 fL 81.0-99.0 N MCV) MEAN CELL HGB (test code = 29.8 pg 27.0-33.0 N MCH) MEAN CELL HGB CONCETRATION 32.2 g/dL 33.0-37.0 L (test code = MCHC) RED CELL DISTRIBUTION WIDTH CV 14.4 % 11.5-14.5 N (test code = RDW) RED CELL DISTRIBUTION WIDTH SD 48.2 fL 37.0-54.0 N (test code = RDW-SD) PLATELET COUNT (test code = 287 x10 3/uL 150-400 N PLT) MEAN PLATELET VOLUME (test 10.3 fL 7.0-9.0 H code = MPV) NEUTROPHIL % (test code = NT%) 74.6 % 56.0-77.0 N IMMATURE GRANULOCYTE % (test 1.0 % 0.0-2.0 N code = IG%) LYMPHOCYTE % (test code = LY%) 14.6 % 14.0-32.0 N MONOCYTE % (test code = MO%) 9.7 % 4.8-9.0 H EOSINOPHIL % (test code = EO%) 0.0 % 0.3-3.7 L BASOPHIL % (test code = BA%) 0.1 % 0.0-2.0 N NUCLEATED RBC % (test code = 0.0 % 0-0 N NRBC%) NEUTROPHIL # (test code = NT#) 11.68 x10 3/uL 2.0-7.6 H IMMATURE GRANULOCYTE # (test 0.15 x10 3/uL 0.00-0.03 H code = IG#) LYMPHOCYTE # (test code = LY#) 2.28 x10 3/uL 1.0-3.8 N MONOCYTE # (test code = MO#) 1.52 x10 3/uL 0.1-0.8 H EOSINOPHIL # (test code = EO#) 0.00 x10 3/uL 0.0-0.2 N BASOPHIL # (test code = BA#) 0.02 x10 3/uL 0.0-0.2 N NUCLEATED RBC # (test code = 0.00 x10 3/uL 0.0-0.1 N NRBC#) MANUAL DIFF REQUIRED (test NO code = MDIFF) COMMENTS: POD #1 and #2VENOUS BLOOD [id number] 18:10:00 Test Item Value Reference Range Interpretation Comments VENOUS BLOOD GAS PH 7.33-7.45 Previous ly reported (test code = PHV) result: 7. 11 Edited by: THOMAS on 02/01/19:1808: PH previo usly reported as: 7. 11 L VENOUS BLOOD GAS PCO2 mmHg 43-47 Previo usly reported (test code = PCO2V) result: 82 mmHgEdited by: THOMAS on 02/01/19:1808: VENOUS PC O2 previously repo rted as: 82 *H mmHg VENOUS BLOOD GAS PO2 mmHg 10-50 N Previou sly reported (test code = PO2V) result: 3 2 mmHgEdited by: THOMAS on 02/01/19:1809: VENOUS PO 2 previously repo rted as: 32 mmHg VBG HCO3 (test code = mmol/L 22-27 N Previo usly reported HCO3V) result: 26.4 mm ol/LEdited by: THOMAS o n 02/01/19:1809: HCO3 prev iously reported as: 26 .4 mmol/L VBG BASE EXCESS (test mmol/L -4.0-4.0 N Previo usly reported code = HERMAN) result: -3.0 mm ol/LEdited by: THOMAS o n 02/01/19:1810 0 02/01/191809: HERMAN previ ously reported as: -3 .0 mmol/L VENOUS BLOOD GAS O2 % 60-80 Previous ly reported SAT. (test code = result: 42 %Edited by: O2SATV) THOMAS on 02/01/19:1809: O2 SAT pr eviously reported as: 42 L % VENOUS BLOOD GAS FIO2 % Previo usly reported (test code = FIO2V) result: 22 %Edited by: THOMAS on 02/01/19:1809: FIO2 prev iously reported as: 22 % VENOUS BLOOD GAS Previously reported DELIVERY (test code = result : InfantVent Edited DELV) by: THOMAS o n 02/01/19:1809: DEL previ ously reported as: In fantVent VBG VENT MODE (test Previous ly reported code = MODEV) result: Inf CP AP Edited by: THOMAS o n 02/01/19:1809: MODE prev iously reported as: In f CPAP VENOUS BLOOD GAS PEEP cmH2O Perfor med by certified (test code = PEEPV) drawing machine operator [facility] result : 5 [id number] by: THOMAS on 02/01/19:181 0 02/01/191809: VBG PEEP previously reported as: 5 cmH2O Performed by ce rtified drawing machine operator at [facility] VENOUS BLOOD GAS TEMP F Previo usly reported (test code = TEMPV) result: 97.6 FEdited by: THOMAS on 02/01/19:1809: TEMPV pre viously reported as: 97 .6 F VENOUS BLOOD GAS SITE Other (test code = SITEV) VENOUS TCO2 (test Previously reported code = TCO2V) result: 29 Gamal lon by: THOMAS on 02/01/19:1809: TCO2V pre viously reported as: 29 CAPILLARY BLOOD [id number] 18:09:00 Test Item Value Reference Range Interpretation Comments TOTAL CO2 CONTENT MMOL/L 24.0-30.0 N Previously reported (test code = TCO2) result: 2 9.0 MMOL/LEdited by : THOMAS on 02/01/19:1808: TCO2 prev iously reported as: 29 .0 MMOL/L CAPILLARY BLOOD GAS PH 7.33-7.45 Previ ously reported (test code = PHC) result: 7. 22 Edited by: THOMAS on 02/01/19:180 0 02/01/191806: CBG PH pr eviously reported as: 7. 22 L CAPILLARY BLOOD GAS mmHg 35-45 Previous ly reported PCO2 (test code = result: 66 mmHgEdited PCO2C) by: THOMAS o n 02/01/19:1807: CBG PCO2 previously repo rted as: 66 *H mmHg CAPILLARY BLOOD GAS mmHg 30-50 N Previous ly reported PO2 (test code = PO2C) resul t: 39 mmHgEdited by: THOMAS o n 02/01/19:1807: CBG PO2 p reviously reported as: 39 mmHg CBG HCO3 (test code = mmol/L 18-24 Previo usly reported HCO3C) result: 27 mmol /LEdited by: THOMAS o n 02/01/19:1807: HCO3C pre viously reported as: 27 H mmol/L CBG BASE EXCESS (test mmol/L -4-4 N Previo usly reported code = BEC) result: -1.0 mmol/LEdited by : THOMAS on 02/01/19:1807: BASE EXC previously repo rted as: -1.0 mmol/L CBG O2 SATURATION % Previously reported (test code = SATC) result: 6 3 %Edited by: THOMAS on 02/01/19:1808: O2 SAT pr eviously reported as: 63 % CAPILLARY BLOOD GAS % Previous ly reported FIO2 (test code = result: 21 %Edited by: FIO2C) THOMAS on 02/01/19:1808: FIO2 prev iously reported as: 21 % CAPILLARY BLOOD GAS Previous ly reported DEL (test code = DELC) resul t: InfantVent Edited by: CONSUELO RAYMOND on 02/01/19:1808: DELIVERY previously repo rted as: InfantVent CAPILLARY BLOOD GAS cmH2O Performe d by certified PEEP (test code = drawing machine operator a [facility]trPrevious ly reported result : 7 [id number] by: THOMAS on 02/01/19:1808: PEEP prev iously reported as: 7 cmH2O Performed by ce rtified drawing machine operator at [facility] CBG TEMPERATURE (test F Previo usly reported code = TEMPC) result: 98.0 F Edited by: THOMAS on 02/01/19:1808: TEMPC pre viously reported as: 98 .0 F CAPILLARY BLOOD GAS Previous ly reported SITE (test code = result: Edgar ballard Edited by: ANU) MADHAVDJFuad on 02/01/19:1808: SITE prev iously reported as: Edgar ballard CAPILLARY BLOOD [id number] 17:48:00 Test Item Value Reference Range Interpretation Comments TOTAL CO2 CONTENT 29.0 MMOL/L 24.0-30.0 N (test code = TCO2) CAPILLARY BLOOD GAS PH 7.22 7.33-7.45 L (test code = PHC) CAPILLARY BLOOD GAS 66 mmHg 35-45 HH PCO2 (test code = PCO2C) CAPILLARY BLOOD GAS 39 mmHg 30-50 N PO2 (test code = PO2C) CBG HCO3 (test code = 27 mmol/L 18-24 H HCO3C) CBG BASE EXCESS (test -1.0 mmol/L -4-4 N code = BEC) CBG O2 SATURATION 63 % (test code = SATC) CAPILLARY BLOOD GAS 21 % FIO2 (test code = FIO2C) CAPILLARY BLOOD GAS InfantVent DEL (test code = DELC) CAPILLARY BLOOD GAS 7 cmH2O Performe d by PEEP (test code = certified drawing machine operator PEEPC) at [facility] ed [facility] CBG TEMPERATURE (test 98.0 F code = TEMPC) CAPILLARY BLOOD GAS Heel SITE (test code = SITEC) VENOUS BLOOD [id number] 14:27:00 Test Item Value Reference Range Interpretation Comments VENOUS BLOOD GAS PH 7.11 7.33-7.45 L (test code = PHV) VENOUS BLOOD GAS PCO2 82 mmHg 43-47 HH (test code = PCO2V) VENOUS BLOOD GAS PO2 32 mmHg 10-50 N (test code = PO2V) VBG HCO3 (test code = 26.4 mmol/L 22-27 N HCO3V) VBG BASE EXCESS (test -3.0 mmol/L -4.0-4.0 N code = HERMAN) VENOUS BLOOD GAS O2 42 % 60-80 L SAT. (test code = O2SATV) VENOUS BLOOD GAS FIO2 22 % (test code = FIO2V) VENOUS BLOOD GAS [facility] DELIVERY (test code = DELV) VBG VENT MODE (test Inf CPAP code = MODEV) VENOUS BLOOD GAS PEEP 5 cmH2O Perfor med by (test code = PEEPV) certifie d drawing machine operator at [facility] VENOUS BLOOD GAS TEMP 97.6 F (test code = TEMPV) VENOUS BLOOD GAS SITE Other (test code = SITEV) VENOUS TCO2 (test 29 code = TCO2V) CORD ARTERIAL BLOOD [id number] 14:03:00 Test Item Value Reference Range Interpretation Comments CORD BLOOD PH (test code = PH/C) 7.23 7.20-7.30 N CORD BLOOD PCO2 (test code = 59 MMHG 45-50 H PCO2/C) CORD BLOOD PO2 (test code = 12 mmHg 15-25 L PO2/C) CORD BLOOD HCO3 (test code = 25 mmol/L 15-25 N HCO3/C) BASE EXCESS CORD (test code = -3.0 mmol/L -5-5 N AUBREY/C) O2 SATURATION (test code = O2S/C) 9 % 25-45 L COMPREHENSIVE METABOLIC [id number] 17:24:00 Test Item Value Reference Range Interpretation Comments SODIUM (test code = NA) 140 mEq/L 134-147 N POTASSIUM (test code = 3.8 mEq/L 3.4-5.0 N K) CHLORIDE (test code = 107 mEq/L 100-108 N CL) CARBON DIOXIDE (test 25 mEq/L 21-33 N code = CO2) ANION GAP (test code = 12 0-20 N GAP) GLUCOSE (test code = 103 mg/dL 70-110 N GLU) BLOOD UREA NITROGEN 6 mg/dL 7-18 L (test code = BUN) GLOMERULAR FILTRATION 119.0 110-120 N Units of measure = RATE (test code = GFR) ml/mi n/1.73 m2 CREATININE (test code = 0.6 mg/dL 0.6-1.3 N CREAT) TOTAL PROTEIN (test 6.7 g/dL 6.4-8.2 N code = PROT) ALBUMIN (test code = 2.50 g/dL 3.4-5.0 L ALB) CALCIUM (test code = 8.9 mg/dL 8.0-10.5 N CA) BILIRUBIN TOTAL (test 0.20 mg/dL 0.0-1.0 N code = BILT) SGOT/AST (test code = 24 IUnit/L 15-37 N AST) SGPT/ALT (test code = 19 IUnit/L 15-65 N ALT) ALKALINE PHOSPHATASE 107 IUnit/L 20-125 N TOTAL (test code = ALKP) URIC [id number] 17:24:00 Test Item Value Reference Range Interpretation Comments URIC ACID (test code = URIC) 4.6 mg/dL 2.6-7.2 N LACTIC DEHYDROGENASE(LDH)[id number] 17:24:00 Test Item Value Reference Range Interpretation Comments LACTIC DEHYDROGENASE(LDH) (test 154 IUnits/L 84-246 N code = LDH) URINALYSIS [id number] 17:09:00 Test Item Value Reference Range Interpretation Comments UA COLOR (test code = COLU) YELLOW YEL/STRAW UA APPEARANCE (test code = SL CLOUDY CLEAR APPU) UA GLUCOSE DIPSTICK (test code NEGATIVE NEGATIVE = DGLUU) UA BILIRUBIN DIPSTICK (test NEGATIVE NEGATIVE code = BILU) UA KETONE DIPSTICK (test code NEGATIVE NEGATIVE = KETU) UA SPECIFIC GRAVITY (test code 1.019 1.005-1.030 N = SGU) UA BLOOD DIPSTICK (test code = NEGATIVE NEGATIVE VIOLET) UA PH DIPSTICK (test code = 7.0 5.0-7.0 N ART) UA PROTEIN DIPSTICK (test code NEGATIVE NEGATIVE = PROU) UA UROBILINIOGEN DIPSTICK 0.2 mg/dL 0.2-1.0 (test code = URO) UA NITRITE DIPSTICK (test code NEGATIVE NEGATIVE = ERIKA) UA LEUKOCYTE ESTERASE DIPSTICK NEGATIVE NEGATIVE (test code = LEUU) UA WBC (test code = WBCU) 0-3 WBC/HPF 0-3 UA RBC (test code = RBCU) 0-3 RBC/HPF 0-3 UA BACTERIA (test code = BACU) NONE SEEN /HPF NONE SEEN UA SQUAMOUS CELLS (test code = 0-5 /HPF NONE SEEN SQU) UA MUCUS (test code = MUCU) TRACE /LPF NONE SEEN CBC W/AUTO [id number] 17:04:00 Test Item Value Reference Range Interpretation Comments WHITE BLOOD CELL (test code = 11.74 x10 3/uL 4.5-11.0 H WBC) RED BLOOD CELL (test code = 3.70 x10 6/uL 3.54-5.02 N RBC) HEMOGLOBIN (test code = HGB) 11.2 g/dL 11.0-15.0 N HEMATOCRIT (test code = HCT) 33.7 % 33.0-45.0 N MEAN CELL VOLUME (test code = 91.1 fL 81.0-99.0 N MCV) MEAN CELL HGB (test code = 30.3 pg 27.0-33.0 N MCH) MEAN CELL HGB CONCETRATION 33.2 g/dL 33.0-37.0 N (test code = MCHC) RED CELL DISTRIBUTION WIDTH CV 14.1 % 11.5-14.5 N (test code = RDW) RED CELL DISTRIBUTION WIDTH SD 47.2 fL 37.0-54.0 N (test code = RDW-SD) PLATELET COUNT (test code = 310 x10 3/uL 150-400 N PLT) MEAN PLATELET VOLUME (test 10.4 fL 7.0-9.0 H code = MPV) NEUTROPHIL % (test code = NT%) 72.3 % 56.0-77.0 N IMMATURE GRANULOCYTE % (test 0.9 % 0.0-2.0 N code = IG%) LYMPHOCYTE % (test code = LY%) 18.8 % 14.0-32.0 N MONOCYTE % (test code = MO%) 6.9 % 4.8-9.0 N EOSINOPHIL % (test code = EO%) 0.9 % 0.3-3.7 N BASOPHIL % (test code = BA%) 0.2 % 0.0-2.0 N NUCLEATED RBC % (test code = 0.0 % 0-0 N NRBC%) NEUTROPHIL # (test code = NT#) 8.49 x10 3/uL 2.0-7.6 H IMMATURE GRANULOCYTE # (test 0.11 x10 3/uL 0.00-0.03 H code = IG#) LYMPHOCYTE # (test code = LY#) 2.21 x10 3/uL 1.0-3.8 N MONOCYTE # (test code = MO#) 0.81 x10 3/uL 0.1-0.8 H EOSINOPHIL # (test code = EO#) 0.10 x10 3/uL 0.0-0.2 N BASOPHIL # (test code = BA#) 0.02 x10 3/uL 0.0-0.2 N NUCLEATED RBC # (test code = 0.00 x10 3/uL 0.0-0.1 N NRBC#) MANUAL DIFF REQUIRED (test NO code = MDIFF) COMPREHENSIVE METABOLIC [id number] 23:53:00 Test Item Value Reference Range Interpretation Comments SODIUM (test code = NA) 139 mEq/L 134-147 N POTASSIUM (test code = 3.7 mEq/L 3.4-5.0 N K) CHLORIDE (test code = 109 mEq/L 100-108 H CL) CARBON DIOXIDE (test 23 mEq/L 21-33 N code = CO2) ANION GAP (test code = 11 0-20 N GAP) GLUCOSE (test code = 82 mg/dL 70-110 N GLU) BLOOD UREA NITROGEN 6 mg/dL 7-18 L (test code = BUN) GLOMERULAR FILTRATION 146.9 110-120 H Units of measure = RATE (test code = GFR) ml/mi n/1.73 m2 CREATININE (test code = 0.5 mg/dL 0.6-1.3 L CREAT) TOTAL PROTEIN (test 6.7 g/dL 6.4-8.2 N code = PROT) ALBUMIN (test code = 2.50 g/dL 3.4-5.0 L ALB) CALCIUM (test code = 8.4 mg/dL 8.0-10.5 N CA) BILIRUBIN TOTAL (test 0.20 mg/dL 0.0-1.0 N code = BILT) SGOT/AST (test code = 28 IUnit/L 15-37 N AST) SGPT/ALT (test code = 18 IUnit/L 15-65 N ALT) ALKALINE PHOSPHATASE 102 IUnit/L 20-125 N TOTAL (test code = ALKP) URIC [id number] 23:53:00 Test Item Value Reference Range Interpretation Comments URIC ACID (test code = URIC) 4.2 mg/dL 2.6-7.2 N LACTIC DEHYDROGENASE(LDH)2019-01-26 23:53:00 Test Item Value Reference Range Interpretation Comments LACTIC DEHYDROGENASE(LDH) (test 144 IUnits/L 84-246 N code = LDH) DRUGS OF ABUSE SCREEN [id number] 23:45:00 Test Item Value Reference Range Interpretation Comments URN COCAINE (test code NEGATIVE NEGATIVE = COCAURN) URN CANNABINOIDS (test NEGATIVE NEGATIVE code = CANNABURN) URN AMPHETAMINE (test NEGATIVE NEGATIVE code = AMPHETURN) URN BARBITURATE (test POSITIVE NEGATIVE A code = BARBITURN) URN BENZODIAZEPINE NEGATIVE NEGATIVE Cut-off v alue:200 (test code = BENZOURN) ng/mL URN OPIATES (test code NEGATIVE NEGATIVE Cut-o ff value:2000 = OPIATURN) ng/mL URN PHENCYCLIDINE (PCP) NEGATIVE NEGATIVE Cuto ffs:Barbiturates (test code = PHENCURN) 200 ng/mLBenzodiaze pines 200 ng/mLTHC Cannabinoids 50 ng/mLOpiates(Mo rphine) 2000 ng/mLAmphe tamine 1000 ng/mLCocai ne 300 ng/mLPCP phency clidine 25 ng/mL Unconf irmed screening resul ts shouldnot be us ed for non-medical pur poses. AMNISURE (ROM) [id number] 23:43:00 Test Item Value Reference Range Interpretation Comments AMNISURE (ROM) TEST (test NEGATIVE NEGATIVE OP ENED:12/05/2018 code = AMNI) COMPREHENSIVE METABOLIC [id number] 23:39:00 Test Item Value Reference Range Interpretation Comments SODIUM (test code = NA) 139 mEq/L 134-147 N POTASSIUM (test code = 3.7 mEq/L 3.4-5.0 N K) CHLORIDE (test code = 109 mEq/L 100-108 H CL) CARBON DIOXIDE (test 23 mEq/L 21-33 N code = CO2) ANION GAP (test code = 11 0-20 N GAP) GLUCOSE (test code = 82 mg/dL 70-110 N GLU) BLOOD UREA NITROGEN 6 mg/dL 7-18 L (test code = BUN) GLOMERULAR FILTRATION 146.9 110-120 H Units of measure = RATE (test code = GFR) ml/mi n/1.73 m2 CREATININE (test code = 0.5 mg/dL 0.6-1.3 L CREAT) TOTAL PROTEIN (test g/dL 6.4-8.2 code = PROT) ALBUMIN (test code = 2.50 g/dL 3.4-5.0 L ALB) CALCIUM (test code = 8.4 mg/dL 8.0-10.5 N CA) BILIRUBIN TOTAL (test mg/dL 0.0-1.0 code = BILT) SGOT/AST (test code = 28 IUnit/L 15-37 N AST) SGPT/ALT (test code = 18 IUnit/L 15-65 N ALT) ALKALINE PHOSPHATASE IUnit/L 20-125 TOTAL (test code = ALKP) URIC [id number] 23:39:00 Test Item Value Reference Range Interpretation Comments URIC ACID (test code = URIC) 4.2 mg/dL 2.6-7.2 N LACTIC DEHYDROGENASE(LDH)2019-01-26 23:39:00 Test Item Value Reference Range Interpretation Comments LACTIC DEHYDROGENASE(LDH) (test IUnits/L 84-246 code = LDH) DRUGS OF ABUSE SCREEN [id number] 23:36:00 Test Item Value Reference Range Interpretation Comments URN COCAINE (test code NEGATIVE NEGATIVE = COCAURN) URN CANNABINOIDS (test NEGATIVE NEGATIVE code = CANNABURN) URN AMPHETAMINE (test NEGATIVE NEGATIVE code = AMPHETURN) URN BARBITURATE (test NEGATIVE code = BARBITURN) URN BENZODIAZEPINE NEGATIVE NEGATIVE Cut-off v alue:200 (test code = BENZOURN) ng/mL URN OPIATES (test code NEGATIVE NEGATIVE Cut-o ff value:2000 = OPIATURN) ng/mL URN PHENCYCLIDINE (PCP) NEGATIVE NEGATIVE Cuto ffs:Barbiturates (test code = PHENCURN) 200 ng/mLBenzodiaze pines 200 ng/mLTHC Cannabinoids 50 ng/mLOpiates(Mo rphine) 2000 ng/mLAmphe tamine 1000 ng/mLCocai ne 300 ng/mLPCP phency clidine 25 ng/mL Unconf irmed screening resul ts shouldnot be us ed for non-medical pur poses. URINALYSIS [id number] 23:31:00 Test Item Value Reference Range Interpretation Comments UA COLOR (test code = COLU) YELLOW YEL/STRAW UA APPEARANCE (test code = SL CLOUDY CLEAR APPU) UA GLUCOSE DIPSTICK (test code NEGATIVE NEGATIVE = DGLUU) UA BILIRUBIN DIPSTICK (test NEGATIVE NEGATIVE code = BILU) UA KETONE DIPSTICK (test code NEGATIVE NEGATIVE = KETU) UA SPECIFIC GRAVITY (test code 1.015 1.005-1.030 N = SGU) UA BLOOD DIPSTICK (test code = NEGATIVE NEGATIVE VIOLET) UA PH DIPSTICK (test code = 7.0 5.0-7.0 N ART) UA PROTEIN DIPSTICK (test code NEGATIVE NEGATIVE = PROU) UA UROBILINIOGEN DIPSTICK 0.2 mg/dL 0.2-1.0 (test code = URO) UA NITRITE DIPSTICK (test code NEGATIVE NEGATIVE = ERIKA) UA LEUKOCYTE ESTERASE DIPSTICK TRACE NEGATIVE A (test code = LEUU) UA WBC (test code = WBCU) 4-9 WBC/HPF 0-3 A UA RBC (test code = RBCU) 0-3 RBC/HPF 0-3 UA BACTERIA (test code = BACU) NONE SEEN /HPF NONE SEEN UA SQUAMOUS CELLS (test code = 0-5 /HPF NONE SEEN SQU) UA MUCUS (test code = MUCU) TRACE /LPF NONE SEEN CBC W/AUTO [id number] 23:26:00 Test Item Value Reference Range Interpretation Comments WHITE BLOOD CELL (test code = 12.35 x10 3/uL 4.5-11.0 H WBC) RED BLOOD CELL (test code = 3.65 x10 6/uL 3.54-5.02 N RBC) HEMOGLOBIN (test code = HGB) 10.8 g/dL 11.0-15.0 L HEMATOCRIT (test code = HCT) 33.1 % 33.0-45.0 N MEAN CELL VOLUME (test code = 90.7 fL 81.0-99.0 N MCV) MEAN CELL HGB (test code = 29.6 pg 27.0-33.0 N MCH) MEAN CELL HGB CONCETRATION 32.6 g/dL 33.0-37.0 L (test code = MCHC) RED CELL DISTRIBUTION WIDTH CV 14.2 % 11.5-14.5 N (test code = RDW) RED CELL DISTRIBUTION WIDTH SD 46.9 fL 37.0-54.0 N (test code = RDW-SD) PLATELET COUNT (test code = 297 x10 3/uL 150-400 N PLT) MEAN PLATELET VOLUME (test 10.2 fL 7.0-9.0 H code = MPV) NEUTROPHIL % (test code = NT%) 70.0 % 56.0-77.0 N IMMATURE GRANULOCYTE % (test 1.1 % 0.0-2.0 N code = IG%) LYMPHOCYTE % (test code = LY%) 19.8 % 14.0-32.0 N MONOCYTE % (test code = MO%) 7.9 % 4.8-9.0 N EOSINOPHIL % (test code = EO%) 1.0 % 0.3-3.7 N BASOPHIL % (test code = BA%) 0.2 % 0.0-2.0 N NUCLEATED RBC % (test code = 0.0 % 0-0 N NRBC%) NEUTROPHIL # (test code = NT#) 8.65 x10 3/uL 2.0-7.6 H IMMATURE GRANULOCYTE # (test 0.14 x10 3/uL 0.00-0.03 H code = IG#) LYMPHOCYTE # (test code = LY#) 2.44 x10 3/uL 1.0-3.8 N MONOCYTE # (test code = MO#) 0.97 x10 3/uL 0.1-0.8 H EOSINOPHIL # (test code = EO#) 0.12 x10 3/uL 0.0-0.2 N BASOPHIL # (test code = BA#) 0.03 x10 3/uL 0.0-0.2 N NUCLEATED RBC # (test code = 0.00 x10 3/uL 0.0-0.1 N NRBC#) MANUAL DIFF REQUIRED (test NO code = MDIFF) URINALYSIS [id number] 14:32:00 Test Item Value Reference Range Interpretation Comments UA COLOR (test code = COLU) YELLOW YEL/STRAW UA APPEARANCE (test code = CLEAR CLEAR APPU) UA GLUCOSE DIPSTICK (test code NEGATIVE NEGATIVE = DGLUU) UA BILIRUBIN DIPSTICK (test NEGATIVE NEGATIVE code = BILU) UA KETONE DIPSTICK (test code NEGATIVE NEGATIVE = KETU) UA SPECIFIC GRAVITY (test code 1.013 1.005-1.030 N = SGU) UA BLOOD DIPSTICK (test code = NEGATIVE NEGATIVE VIOLET) UA PH DIPSTICK (test code = 7.0 5.0-7.0 N ART) UA PROTEIN DIPSTICK (test code NEGATIVE NEGATIVE = PROU) UA UROBILINIOGEN DIPSTICK 0.2 mg/dL 0.2-1.0 (test code = URO) UA NITRITE DIPSTICK (test code NEGATIVE NEGATIVE = ERIKA) UA LEUKOCYTE ESTERASE DIPSTICK NEGATIVE NEGATIVE (test code = LEUU) UA WBC (test code = WBCU) 0-3 WBC/HPF 0-3 UA RBC (test code = RBCU) 0-3 RBC/HPF 0-3 UA BACTERIA (test code = BACU) NONE SEEN /HPF NONE SEEN UA SQUAMOUS CELLS (test code = 0-5 /HPF NONE SEEN SQU) UA MUCUS (test code = MUCU) TRACE /LPF NONE SEEN COMPREHENSIVE METABOLIC [id number] 14:30:00 Test Item Value Reference Range Interpretation Comments SODIUM (test code = NA) 139 mEq/L 134-147 N POTASSIUM (test code = 3.7 mEq/L 3.4-5.0 N K) CHLORIDE (test code = 108 mEq/L 100-108 N CL) CARBON DIOXIDE (test 25 mEq/L 21-33 N code = CO2) ANION GAP (test code = 10 0-20 N GAP) GLUCOSE (test code = 92 mg/dL 70-110 N GLU) BLOOD UREA NITROGEN 7 mg/dL 7-18 N (test code = BUN) GLOMERULAR FILTRATION 146.9 110-120 H Units of measure = RATE (test code = GFR) ml/mi n/1.73 m2 CREATININE (test code = 0.5 mg/dL 0.6-1.3 L CREAT) TOTAL PROTEIN (test 6.7 g/dL 6.4-8.2 N code = PROT) ALBUMIN (test code = 2.50 g/dL 3.4-5.0 L ALB) CALCIUM (test code = 9.0 mg/dL 8.0-10.5 N CA) BILIRUBIN TOTAL (test 0.10 mg/dL 0.0-1.0 N code = BILT) SGOT/AST (test code = 19 IUnit/L 15-37 N AST) SGPT/ALT (test code = 17 IUnit/L 15-65 N ALT) ALKALINE PHOSPHATASE 106 IUnit/L 20-125 N TOTAL (test code = ALKP) URIC [id number] 14:30:00 Test Item Value Reference Range Interpretation Comments URIC ACID (test code = URIC) 4.3 mg/dL 2.6-7.2 N LACTIC DEHYDROGENASE(LDH)2019-01-20 14:30:00 Test Item Value Reference Range Interpretation Comments LACTIC DEHYDROGENASE(LDH) (test 128 IUnits/L 84-246 N code = LDH) COMPREHENSIVE METABOLIC [id number] 14:20:00 Test Item Value Reference Range Interpretation Comments SODIUM (test code = NA) 139 mEq/L 134-147 N POTASSIUM (test code = 3.7 mEq/L 3.4-5.0 N K) CHLORIDE (test code = 108 mEq/L 100-108 N CL) CARBON DIOXIDE (test 25 mEq/L 21-33 N code = CO2) ANION GAP (test code = 10 0-20 N GAP) GLUCOSE (test code = 92 mg/dL 70-110 N GLU) BLOOD UREA NITROGEN 7 mg/dL 7-18 N (test code = BUN) GLOMERULAR FILTRATION 146.9 110-120 H Units of measure = RATE (test code = GFR) ml/mi n/1.73 m2 CREATININE (test code = 0.5 mg/dL 0.6-1.3 L CREAT) TOTAL PROTEIN (test g/dL 6.4-8.2 code = PROT) ALBUMIN (test code = 2.50 g/dL 3.4-5.0 L ALB) CALCIUM (test code = 9.0 mg/dL 8.0-10.5 N CA) BILIRUBIN TOTAL (test mg/dL 0.0-1.0 code = BILT) SGOT/AST (test code = 19 IUnit/L 15-37 N AST) SGPT/ALT (test code = IUnit/L 15-65 ALT) ALKALINE PHOSPHATASE IUnit/L 20-125 TOTAL (test code = ALKP) URIC [id number] 14:20:00 Test Item Value Reference Range Interpretation Comments URIC ACID (test code = URIC) 4.3 mg/dL 2.6-7.2 N LACTIC DEHYDROGENASE(LDH)2019-01-20 14:20:00 Test Item Value Reference Range Interpretation Comments LACTIC DEHYDROGENASE(LDH) (test IUnits/L 84-246 code = LDH) CBC W/AUTO [id number] 14:06:00 Test Item Value Reference Range Interpretation Comments WHITE BLOOD CELL (test code = 11.45 x10 3/uL 4.5-11.0 H WBC) RED BLOOD CELL (test code = 3.72 x10 6/uL 3.54-5.02 N RBC) HEMOGLOBIN (test code = HGB) 11.0 g/dL 11.0-15.0 N HEMATOCRIT (test code = HCT) 33.4 % 33.0-45.0 N MEAN CELL VOLUME (test code = 89.8 fL 81.0-99.0 N MCV) MEAN CELL HGB (test code = 29.6 pg 27.0-33.0 N MCH) MEAN CELL HGB CONCETRATION 32.9 g/dL 33.0-37.0 L (test code = MCHC) RED CELL DISTRIBUTION WIDTH CV 14.1 % 11.5-14.5 N (test code = RDW) RED CELL DISTRIBUTION WIDTH SD 46.0 fL 37.0-54.0 N (test code = RDW-SD) PLATELET COUNT (test code = 337 x10 3/uL 150-400 N PLT) MEAN PLATELET VOLUME (test 10.1 fL 7.0-9.0 H code = MPV) NEUTROPHIL % (test code = NT%) 71.5 % 56.0-77.0 N IMMATURE GRANULOCYTE % (test 1.2 % 0.0-2.0 N code = IG%) LYMPHOCYTE % (test code = LY%) 17.6 % 14.0-32.0 N MONOCYTE % (test code = MO%) 8.7 % 4.8-9.0 N EOSINOPHIL % (test code = EO%) 0.9 % 0.3-3.7 N BASOPHIL % (test code = BA%) 0.1 % 0.0-2.0 N NUCLEATED RBC % (test code = 0.0 % 0-0 N NRBC%) NEUTROPHIL # (test code = NT#) 8.19 x10 3/uL 2.0-7.6 H IMMATURE GRANULOCYTE # (test 0.14 x10 3/uL 0.00-0.03 H code = IG#) LYMPHOCYTE # (test code = LY#) 2.01 x10 3/uL 1.0-3.8 N MONOCYTE # (test code = MO#) 1.00 x10 3/uL 0.1-0.8 H EOSINOPHIL # (test code = EO#) 0.10 x10 3/uL 0.0-0.2 N BASOPHIL # (test code = BA#) 0.01 x10 3/uL 0.0-0.2 N NUCLEATED RBC # (test code = 0.00 x10 3/uL 0.0-0.1 N NRBC#) MANUAL DIFF REQUIRED (test NO code = MDIFF) RAPID PLASMA [id number] 12:19:00 Test Item Value Reference Range Interpretation Comments RAPID PLASMA REAGIN (test code = NONREACTIVE NONREACTIVE RPR) AG HEPATITIS B [id number] 12:19:00 Test Item Value Reference Range Interpretation Comments AG HEPATITIS B SURFACE NON REACTIVE INDEX NonReactive (test code = HBSAG) AB HIV 1 12:19:00 Test Item Value Reference Range Interpretation Comments AB HIV 1 2 (test code = NONREACTIVE INDEX NONREACTIVE [id number]) COMPREHENSIVE METABOLIC [id number] 05:49:00 Test Item Value Reference Range Interpretation Comments SODIUM (test code = NA) 140 mEq/L 134-147 N POTASSIUM (test code = 3.5 mEq/L 3.4-5.0 N K) CHLORIDE (test code = 109 mEq/L 100-108 H CL) CARBON DIOXIDE (test 25 mEq/L 21-33 N code = CO2) ANION GAP (test code = 10 0-20 N GAP) GLUCOSE (test code = 105 mg/dL 70-110 N GLU) BLOOD UREA NITROGEN 8 mg/dL 7-18 N (test code = BUN) GLOMERULAR FILTRATION 146.9 110-120 H Units of measure = RATE (test code = GFR) ml/mi n/1.73 m2 CREATININE (test code = 0.5 mg/dL 0.6-1.3 L CREAT) TOTAL PROTEIN (test 6.0 g/dL 6.4-8.2 L code = PROT) ALBUMIN (test code = 2.20 g/dL 3.4-5.0 L ALB) CALCIUM (test code = 8.4 mg/dL 8.0-10.5 N CA) BILIRUBIN TOTAL (test 0.10 mg/dL 0.0-1.0 N code = BILT) SGOT/AST (test code = 25 IUnit/L 15-37 N AST) SGPT/ALT (test code = 20 IUnit/L 15-65 N ALT) ALKALINE PHOSPHATASE 88 IUnit/L 20-125 N TOTAL (test code = ALKP) URIC [id number] 05:49:00 Test Item Value Reference Range Interpretation Comments URIC ACID (test code = URIC) 4.4 mg/dL 2.6-7.2 N LACTIC DEHYDROGENASE(LDH)2019-01-08 05:49:00 Test Item Value Reference Range Interpretation Comments LACTIC DEHYDROGENASE(LDH) (test 110 IUnits/L 84-246 N code = LDH) COMPREHENSIVE METABOLIC [id number] 05:43:00 Test Item Value Reference Range Interpretation Comments SODIUM (test code = NA) 140 mEq/L 134-147 N POTASSIUM (test code = 3.5 mEq/L 3.4-5.0 N K) CHLORIDE (test code = 109 mEq/L 100-108 H CL) CARBON DIOXIDE (test 25 mEq/L 21-33 N code = CO2) ANION GAP (test code = 10 0-20 N GAP) GLUCOSE (test code = 105 mg/dL 70-110 N GLU) BLOOD UREA NITROGEN 8 mg/dL 7-18 N (test code = BUN) GLOMERULAR FILTRATION 146.9 110-120 H Units of measure = RATE (test code = GFR) ml/mi n/1.73 m2 CREATININE (test code = 0.5 mg/dL 0.6-1.3 L CREAT) TOTAL PROTEIN (test g/dL 6.4-8.2 code = PROT) ALBUMIN (test code = 2.20 g/dL 3.4-5.0 L ALB) CALCIUM (test code = 8.4 mg/dL 8.0-10.5 N CA) BILIRUBIN TOTAL (test mg/dL 0.0-1.0 code = BILT) SGOT/AST (test code = 25 IUnit/L 15-37 N AST) SGPT/ALT (test code = 20 IUnit/L 15-65 N ALT) ALKALINE PHOSPHATASE IUnit/L 20-125 TOTAL (test code = ALKP) URIC [id number] 05:43:00 Test Item Value Reference Range Interpretation Comments URIC ACID (test code = URIC) 4.4 mg/dL 2.6-7.2 N LACTIC DEHYDROGENASE(LDH)2019-01-08 05:43:00 Test Item Value Reference Range Interpretation Comments LACTIC DEHYDROGENASE(LDH) (test IUnits/L 84-246 code = LDH) URINALYSIS [id number] 05:35:00 Test Item Value Reference Range Interpretation Comments UA COLOR (test code = COLU) STRAW YEL/STRAW UA APPEARANCE (test code = APPU) SL CLOUDY CLEAR UA GLUCOSE DIPSTICK (test code = NEGATIVE NEGATIVE DGLUU) UA BILIRUBIN DIPSTICK (test code NEGATIVE NEGATIVE = BILU) UA KETONE DIPSTICK (test code = NEGATIVE NEGATIVE KETU) UA SPECIFIC GRAVITY (test code = 1.009 1.005-1.030 N SGU) UA BLOOD DIPSTICK (test code = NEGATIVE NEGATIVE VIOLET) UA PH DIPSTICK (test code = ART) 8.0 5.0-7.0 H UA PROTEIN DIPSTICK (test code = NEGATIVE NEGATIVE PROU) UA UROBILINIOGEN DIPSTICK (test 0.2 mg/dL 0.2-1.0 code = URO) UA NITRITE DIPSTICK (test code = NEGATIVE NEGATIVE ERIKA) UA LEUKOCYTE ESTERASE DIPSTICK NEGATIVE NEGATIVE (test code = LEUU) UA WBC (test code = WBCU) 4-9 WBC/HPF 0-3 A UA RBC (test code = RBCU) 0-3 RBC/HPF 0-3 UA BACTERIA (test code = BACU) TRACE /HPF NONE SEEN UA SQUAMOUS CELLS (test code = 11-25 /HPF NONE SEEN A SQU) UA MUCUS (test code = MUCU) TRACE /LPF NONE SEEN UA YEAST (BUDDING) (test code = 1+ /HPF NONE A YEASTUBD) URINALYSIS [id number] 05:33:00 Test Item Value Reference Range Interpretation Comments UA COLOR (test code = COLU) YEL/STRAW UA APPEARANCE (test code = APPU) CLEAR UA GLUCOSE DIPSTICK (test code = NEGATIVE DGLUU) UA BILIRUBIN DIPSTICK (test code NEGATIVE = BILU) UA KETONE DIPSTICK (test code = NEGATIVE KETU) UA SPECIFIC GRAVITY (test code = 1.005-1.030 SGU) UA BLOOD DIPSTICK (test code = NEGATIVE VIOLET) UA PH DIPSTICK (test code = ART) 5.0-7.0 UA PROTEIN DIPSTICK (test code = NEGATIVE PROU) UA UROBILINIOGEN DIPSTICK (test mg/dL 0.2-1.0 code = URO) UA NITRITE DIPSTICK (test code = NEGATIVE ERIKA) UA LEUKOCYTE ESTERASE DIPSTICK NEGATIVE (test code = LEUU) UA WBC (test code = WBCU) 4-9 WBC/HPF 0-3 A UA RBC (test code = RBCU) 0-3 RBC/HPF 0-3 UA BACTERIA (test code = BACU) TRACE /HPF NONE SEEN UA SQUAMOUS CELLS (test code = 11-25 /HPF NONE SEEN A SQU) UA MUCUS (test code = MUCU) TRACE /LPF NONE SEEN UA YEAST (BUDDING) (test code = 1+ /HPF NONE A YEASTUBD) CBC W/AUTO [id number] 05:25:00 Test Item Value Reference Range Interpretation Comments WHITE BLOOD CELL (test code = 9.48 x10 3/uL 4.5-11.0 N WBC) RED BLOOD CELL (test code = 3.47 x10 6/uL 3.54-5.02 L RBC) HEMOGLOBIN (test code = HGB) 10.4 g/dL 11.0-15.0 L HEMATOCRIT (test code = HCT) 30.8 % 33.0-45.0 L MEAN CELL VOLUME (test code = 88.8 fL 81.0-99.0 N MCV) MEAN CELL HGB (test code = MCH) 30.0 pg 27.0-33.0 N MEAN CELL HGB CONCETRATION 33.8 g/dL 33.0-37.0 N (test code = MCHC) RED CELL DISTRIBUTION WIDTH CV 14.3 % 11.5-14.5 N (test code = RDW) RED CELL DISTRIBUTION WIDTH SD 46.2 fL 37.0-54.0 N (test code = RDW-SD) PLATELET COUNT (test code = 273 x10 3/uL 150-400 N PLT) MEAN PLATELET VOLUME (test code 10.2 fL 7.0-9.0 H = MPV) NEUTROPHIL % (test code = NT%) 66.5 % 56.0-77.0 N IMMATURE GRANULOCYTE % (test 1.1 % 0.0-2.0 N code = IG%) LYMPHOCYTE % (test code = LY%) 21.6 % 14.0-32.0 N MONOCYTE % (test code = MO%) 9.4 % 4.8-9.0 H EOSINOPHIL % (test code = EO%) 1.2 % 0.3-3.7 N BASOPHIL % (test code = BA%) 0.2 % 0.0-2.0 N NUCLEATED RBC % (test code = 0.0 % 0-0 N NRBC%) NEUTROPHIL # (test code = NT#) 6.31 x10 3/uL 2.0-7.6 N IMMATURE GRANULOCYTE # (test 0.10 x10 3/uL 0.00-0.03 H code = IG#) LYMPHOCYTE # (test code = LY#) 2.05 x10 3/uL 1.0-3.8 N MONOCYTE # (test code = MO#) 0.89 x10 3/uL 0.1-0.8 H EOSINOPHIL # (test code = EO#) 0.11 x10 3/uL 0.0-0.2 N BASOPHIL # (test code = BA#) 0.02 x10 3/uL 0.0-0.2 N NUCLEATED RBC # (test code = 0.00 x10 3/uL 0.0-0.1 N NRBC#) MANUAL DIFF REQUIRED (test code NO = MDIFF) - US [id number] 00:53:00 Name: REYNA EARLY [facility] [place] : 1990 Age/S: 28 / F [address] [place] [address] Unit #: [id number] Loc: [place] [address] Phys: Jayme Christianson MD Acct: [id number] Dis Date: Status: ADM IN PHONE #: [phone] Exam Date: 01/07/2019 0009 FAX #: [phone] Reason: Hardto find FHT EXAMS: CPT CODE: [id number] US LTD [id number] EXAM: US, US LTD: 01/07/2019, 2356 hours History: . Vaginal bleeding. Cramping. TECHNIQUE: Sonographic evaluation is performed of the uterus using grayscale, color flow and Doppler imaging using transabdominal approach. COMPARISON: None. FINDINGS: Single live intrauterine gestation is identified . heart rate ranges from 139 -144 beats per minute gestational age by LMP is 30 weeks 2 days and REGINA by LMP is 03/16/2019. heart rate is 146 bpm. Placenta is posterior. No evidence of placenta previa.IMPRESSION: 1. Single viable intrauterine gestation with positive cardiac activity. SL: JSDANITA-H at 0053 Reported and signed by: Jairo Reynolds M.D. CC: Gabriel Torres MD; Jayme Christianson Technologist: Valeria Marr RDMS(A) Trnscb Date/Time: 01/08/2019 (0053) [email or web address] Orig Print D/T: S: 01/08/2019 (0056) Probe: PAGE 1 Signed ReportRAPID PLASMA [id number] 21:20:00 Test Item Value Reference Range Interpretation Comments RAPID PLASMA REAGIN (test code = RPR) NONREACTIVE AG HEPATITIS B [id number] 21:20:00 Test Item Value Reference Range Interpretation Comments AG HEPATITIS B SURFACE NON REACTIVE INDEX NonReactive (test code = HBSAG) AB HIV 1 21:20:00 Test Item Value Reference Range Interpretation Comments AB HIV 1 2 (test code = NONREACTIVE INDEX NONREACTIVE [id number]) RAPID PLASMA [id number] 16:37:00 Test Item Value Reference Range Interpretation Comments RAPID PLASMA REAGIN (test code = RPR) NONREACTIVE AG HEPATITIS B [id number] 16:37:00 Test Item Value Reference Range Interpretation Comments AG HEPATITIS B SURFACE NON REACTIVE INDEX NonReactive (test code = HBSAG) AB HIV 1 16:37:00 Test Item Value Reference Range Interpretation Comments AB HIV 1 2 (test code = [id number]) INDEX NONREACTIVE CBC W/AUTO [id number] 16:23:00 Test Item Value Reference Range Interpretation Comments WHITE BLOOD CELL (test code = 11.48 x10 3/uL 4.5-11.0 H WBC) RED BLOOD CELL (test code = 3.71 x10 6/uL 3.54-5.02 N RBC) HEMOGLOBIN (test code = HGB) 11.0 g/dL 11.0-15.0 N HEMATOCRIT (test code = HCT) 33.9 % 33.0-45.0 N MEAN CELL VOLUME (test code = 91.4 fL 81.0-99.0 N MCV) MEAN CELL HGB (test code = 29.6 pg 27.0-33.0 N MCH) MEAN CELL HGB CONCETRATION 32.4 g/dL 33.0-37.0 L (test code = MCHC) RED CELL DISTRIBUTION WIDTH CV 14.3 % 11.5-14.5 N (test code = RDW) RED CELL DISTRIBUTION WIDTH SD 47.8 fL 37.0-54.0 N (test code = RDW-SD) PLATELET COUNT (test code = 312 x10 3/uL 150-400 N PLT) MEAN PLATELET VOLUME (test 10.4 fL 7.0-9.0 H code = MPV) NEUTROPHIL % (test code = NT%) 71.8 % 56.0-77.0 N IMMATURE GRANULOCYTE % (test 1.2 % 0.0-2.0 N code = IG%) LYMPHOCYTE % (test code = LY%) 17.9 % 14.0-32.0 N MONOCYTE % (test code = MO%) 7.9 % 4.8-9.0 N EOSINOPHIL % (test code = EO%) 1.0 % 0.3-3.7 N BASOPHIL % (test code = BA%) 0.2 % 0.0-2.0 N NUCLEATED RBC % (test code = 0.0 % 0-0 N NRBC%) NEUTROPHIL # (test code = NT#) 8.23 x10 3/uL 2.0-7.6 H IMMATURE GRANULOCYTE # (test 0.14 x10 3/uL 0.00-0.03 H code = IG#) LYMPHOCYTE # (test code = LY#) 2.06 x10 3/uL 1.0-3.8 N MONOCYTE # (test code = MO#) 0.91 x10 3/uL 0.1-0.8 H EOSINOPHIL # (test code = EO#) 0.12 x10 3/uL 0.0-0.2 N BASOPHIL # (test code = BA#) 0.02 x10 3/uL 0.0-0.2 N NUCLEATED RBC # (test code = 0.00 x10 3/uL 0.0-0.1 N NRBC#) MANUAL DIFF REQUIRED (test NO code = MDIFF) COMPREHENSIVE METABOLIC [id number] 16:19:00 Test Item Value Reference Range Interpretation Comments SODIUM (test code = NA) 140 mEq/L 134-147 N POTASSIUM (test code = 3.6 mEq/L 3.4-5.0 N K) CHLORIDE (test code = 109 mEq/L 100-108 H CL) CARBON DIOXIDE (test 24 mEq/L 21-33 N code = CO2) ANION GAP (test code = 11 0-20 N GAP) GLUCOSE (test code = 93 mg/dL 70-110 N GLU) BLOOD UREA NITROGEN 7 mg/dL 7-18 N (test code = BUN) GLOMERULAR FILTRATION 146.9 110-120 H Units of measure = RATE (test code = GFR) ml/mi n/1.73 m2 CREATININE (test code = 0.5 mg/dL 0.6-1.3 L CREAT) TOTAL PROTEIN (test 6.8 g/dL 6.4-8.2 N code = PROT) ALBUMIN (test code = 2.60 g/dL 3.4-5.0 L ALB) CALCIUM (test code = 9.0 mg/dL 8.0-10.5 N CA) BILIRUBIN TOTAL (test 0.10 mg/dL 0.0-1.0 N code = BILT) SGOT/AST (test code = 31 IUnit/L 15-37 N AST) SGPT/ALT (test code = 29 IUnit/L 15-65 N ALT) ALKALINE PHOSPHATASE 97 IUnit/L 20-125 N TOTAL (test code = ALKP) URINALYSIS [id number] 16:14:00 Test Item Value Reference Range Interpretation Comments UA COLOR (test code = COLU) YELLOW YEL/STRAW UA APPEARANCE (test code = CLEAR CLEAR APPU) UA GLUCOSE DIPSTICK (test code NEGATIVE NEGATIVE = DGLUU) UA BILIRUBIN DIPSTICK (test NEGATIVE NEGATIVE code = BILU) UA KETONE DIPSTICK (test code NEGATIVE NEGATIVE = KETU) UA SPECIFIC GRAVITY (test code 1.016 1.005-1.030 N = SGU) UA BLOOD DIPSTICK (test code = NEGATIVE NEGATIVE VIOLET) UA PH DIPSTICK (test code = 6.0 5.0-7.0 N ART) UA PROTEIN DIPSTICK (test code NEGATIVE NEGATIVE = PROU) UA UROBILINIOGEN DIPSTICK 0.2 mg/dL 0.2-1.0 (test code = URO) UA NITRITE DIPSTICK (test code NEGATIVE NEGATIVE = ERIKA) UA LEUKOCYTE ESTERASE DIPSTICK NEGATIVE NEGATIVE (test code = LEUU) UA WBC (test code = WBCU) 0-3 WBC/HPF 0-3 UA RBC (test code = RBCU) 0-3 RBC/HPF 0-3 UA BACTERIA (test code = BACU) NONE SEEN /HPF NONE SEEN UA SQUAMOUS CELLS (test code = 0-5 /HPF NONE SEEN SQU) UA MUCUS (test code = MUCU) TRACE /LPF NONE SEEN URINALYSIS [id number] 13:59:00 Test Item Value Reference Range Interpretation Comments UA COLOR (test code = COLU) YELLOW YEL/STRAW UA APPEARANCE (test code = APPU) CLEAR CLEAR UA GLUCOSE DIPSTICK (test code = NEGATIVE NEGATIVE DGLUU) UA BILIRUBIN DIPSTICK (test code NEGATIVE NEGATIVE = BILU) UA KETONE DIPSTICK (test code = NEGATIVE NEGATIVE KETU) UA SPECIFIC GRAVITY (test code = 1.017 1.005-1.030 N SGU) UA BLOOD DIPSTICK (test code = NEGATIVE NEGATIVE VIOLET) UA PH DIPSTICK (test code = ART) 6.0 5.0-7.0 N UA PROTEIN DIPSTICK (test code = NEGATIVE NEGATIVE PROU) UA UROBILINIOGEN DIPSTICK (test 0.2 mg/dL 0.2-1.0 code = URO) UA NITRITE DIPSTICK (test code = NEGATIVE NEGATIVE ERIKA) UA LEUKOCYTE ESTERASE DIPSTICK NEGATIVE NEGATIVE (test code = LEUU) UA WBC (test code = WBCU) 0-3 WBC/HPF 0-3 UA RBC (test code = RBCU) 0-3 RBC/HPF 0-3 UA BACTERIA (test code = BACU) TRACE /HPF NONE SEEN UA SQUAMOUS CELLS (test code = 0-5 /HPF NONE SEEN SQU) UA MUCUS (test code = MUCU) TRACE /LPF NONE SEEN - XR CHEST 2 [id number] 11:56:00 FAX: Gabriel Gomez [phone] [place]: St: REG FAX: Shanice Mccarthy DO Name: REYNA EARLY [facility] : 1990 Age/S: 28/F [address] [place] [address] Unit #: [id number] Loc: [place] [address] Phys: Shanice Mccarthy DO Acct: [id number] Dis Date: Status: REG ER PHONE #: [phone] Exam Date: 12/15/2018 1152 FAX #: [phone] Reason: cough EXAMS: CPT CODE: [id number] XR CHEST 2 V 42340 CHEST RADIOGRAPHS - PA AND LATERAL: COMPARISON: None CLINICAL HISTORY: cough Cardiomediastinal silhouette is stable in size. Lungs are clear. There is a small focal eventration of the anterior right hemidiaphragm. No vascular congestion or pneumothorax. IMPRESSION: No acute pulmonary abnormality. at 1156 Reported and signed by: Roni Pal M.D. CC: Gabriel Torres MD; Shanice Mccarthy DO Technologist: Annie Jenkins RT(R) Trnscrd Date/Time/By: 12/15/2018 (2292) : By: [email or web address] Orig Print D/T: S: 12/15/2018 (6536) PAGE 1 Signed Report- XR CHEST 1 [id number] 22:02:00 FAX: Gabriel Gomez [phone] [place]: St: REG FAX: Zain Andres MD [phone] - Name: NNEKASHANNONJEANETTE BETI [facility] : 1990 Age/S: 28/F [address] [place] [address] Unit #: [id number] Loc: [place] [address] Phys: Zain Harris MD Acct: [id number] Dis Date: Status: REG ER PHONE#: [phone] Exam Date: 12/12/2018 2200 FAX #: [phone] Reason: cough EXAMS: CPT CODE: [id number] XR CHEST 1 V 33088 SINGLE VIEW RADIOGRAPH CHEST INDICATION: cough. TECHNIQUE: A single view frontal radiograph of the chest was obtained. COMPARISONS: Chest x-ray 11/10/2018 FINDINGS: There is no acute osseous fracture or dislocation. There is no subdiaphragmatic free gas. The cardiomediastinal sizeand contour are normal. There is no pneumothorax, pleural effusion or organized pneumonia. IMPRESSION: 1. No acute cardiopulmonary process. at 2202 Reported and signed by: Nitesh Christiansen D.O. CC: Gabriel Torres MD; Zain Harris MD Technologist: MILADY Stack RT(R) Trnscrd Date/Time/By: 12/12/2018 (2201) : By: [email or web address] Orig Print D/T: S: 12/12/2018 (2204) PAGE 1 Signed ReportURINALYSIS [id number] 15:23:00 Test Item Value Reference Range Interpretation Comments UA COLOR (test code = COLU) YELLOW YEL/STRAW UA APPEARANCE (test code = APPU) SL CLOUDY CLEAR UA GLUCOSE DIPSTICK (test code = NEGATIVE NEGATIVE DGLUU) UA BILIRUBIN DIPSTICK (test code NEGATIVE NEGATIVE = BILU) UA KETONE DIPSTICK (test code = NEGATIVE NEGATIVE KETU) UA SPECIFIC GRAVITY (test code = 1.012 1.005-1.030 N SGU) UA BLOOD DIPSTICK (test code = NEGATIVE NEGATIVE VIOLET) UA PH DIPSTICK (test code = ART) 8.0 5.0-7.0 H UA PROTEIN DIPSTICK (test code = NEGATIVE NEGATIVE PROU) UA UROBILINIOGEN DIPSTICK (test 0.2 mg/dL 0.2-1.0 code = URO) UA NITRITE DIPSTICK (test code = NEGATIVE NEGATIVE ERIKA) UA LEUKOCYTE ESTERASE DIPSTICK NEGATIVE NEGATIVE (test code = LEUU) UA WBC (test code = WBCU) 0-3 WBC/HPF 0-3 UA RBC (test code = RBCU) 0-3 RBC/HPF 0-3 UA BACTERIA (test code = BACU) TRACE /HPF NONE SEEN UA SQUAMOUS CELLS (test code = 6-10 /HPF NONE SEEN A SQU) UA MUCUS (test code = MUCU) TRACE /LPF NONE SEEN DRUGS OF ABUSE SCREEN [id number] 11:29:00 Test Item Value Reference Range Interpretation Comments URN COCAINE (test code NEGATIVE NEGATIVE = COCAURN) URN CANNABINOIDS (test NEGATIVE NEGATIVE code = CANNABURN) URN AMPHETAMINE (test NEGATIVE NEGATIVE code = AMPHETURN) URN BARBITURATE (test NEGATIVE NEGATIVE code = BARBITURN) URN BENZODIAZEPINE NEGATIVE NEGATIVE Cut-off v alue:200 (test code = BENZOURN) ng/mL URN OPIATES (test code POSITIVE NEGATIVE A Cut- off value:2000 = OPIATURN) ng/mL URN PHENCYCLIDINE (PCP) NEGATIVE NEGATIVE Cuto ffs:Barbiturates (test code = PHENCURN) 200 ng/mLBenzodiaze pines 200 ng/mLTHC Cannabinoids 50 ng/mLOpiates(Mo rphine) 2000 ng/mLAmphe tamine 1000 ng/mLCocai ne 300 ng/mLPCP phency clidine 25 ng/mL Unconf irmed screening resul ts shouldnot be us ed for non-medical pur poses. COMPREHENSIVE METABOLIC [id number] 11:20:00 Test Item Value Reference Range Interpretation Comments SODIUM (test code = NA) 139 mEq/L 134-147 N POTASSIUM (test code = 3.7 mEq/L 3.4-5.0 N K) CHLORIDE (test code = 108 mEq/L 100-108 N CL) CARBON DIOXIDE (test 24 mEq/L 21-33 N code = CO2) ANION GAP (test code = 11 0-20 N GAP) GLUCOSE (test code = 97 mg/dL 70-110 N GLU) BLOOD UREA NITROGEN 10 mg/dL 7-18 N (test code = BUN) GLOMERULAR FILTRATION 146.9 110-120 H Units of measure = RATE (test code = GFR) ml/mi n/1.73 m2 CREATININE (test code = 0.5 mg/dL 0.6-1.3 L CREAT) TOTAL PROTEIN (test 7.2 g/dL 6.4-8.2 N code = PROT) ALBUMIN (test code = 2.80 g/dL 3.4-5.0 L ALB) CALCIUM (test code = 9.1 mg/dL 8.0-10.5 N CA) BILIRUBIN TOTAL (test 0.20 mg/dL 0.0-1.0 N code = BILT) SGOT/AST (test code = 36 IUnit/L 15-37 N AST) SGPT/ALT (test code = 24 IUnit/L 15-65 N ALT) ALKALINE PHOSPHATASE 84 IUnit/L 20-125 N TOTAL (test code = ALKP) COMPREHENSIVE METABOLIC [id number] 11:19:00 Test Item Value Reference Range Interpretation Comments SODIUM (test code = NA) 139 mEq/L 134-147 N POTASSIUM (test code = 3.7 mEq/L 3.4-5.0 N K) CHLORIDE (test code = 108 mEq/L 100-108 N CL) CARBON DIOXIDE (test 24 mEq/L 21-33 N code = CO2) ANION GAP (test code = 11 0-20 N GAP) GLUCOSE (test code = 97 mg/dL 70-110 N GLU) BLOOD UREA NITROGEN 10 mg/dL 7-18 N (test code = BUN) GLOMERULAR FILTRATION 146.9 110-120 H Units of measure = RATE (test code = GFR) ml/mi n/1.73 m2 CREATININE (test code = 0.5 mg/dL 0.6-1.3 L CREAT) TOTAL PROTEIN (test g/dL 6.4-8.2 code = PROT) ALBUMIN (test code = 2.80 g/dL 3.4-5.0 L ALB) CALCIUM (test code = 9.1 mg/dL 8.0-10.5 N CA) BILIRUBIN TOTAL (test mg/dL 0.0-1.0 code = BILT) SGOT/AST (test code = 36 IUnit/L 15-37 N AST) SGPT/ALT (test code = 24 IUnit/L 15-65 N ALT) ALKALINE PHOSPHATASE IUnit/L 20-125 TOTAL (test code = ALKP) DRUGS OF ABUSE SCREEN [id number] 11:14:00 Test Item Value Reference Range Interpretation Comments URN COCAINE (test code NEGATIVE NEGATIVE = COCAURN) URN CANNABINOIDS (test NEGATIVE NEGATIVE code = CANNABURN) URN AMPHETAMINE (test NEGATIVE NEGATIVE code = AMPHETURN) URN BARBITURATE (test NEGATIVE NEGATIVE code = BARBITURN) URN BENZODIAZEPINE NEGATIVE NEGATIVE Cut-off v alue:200 (test code = BENZOURN) ng/mL URN OPIATES (test code NEGATIVE = OPIATURN) URN PHENCYCLIDINE (PCP) NEGATIVE NEGATIVE Cuto ffs:Barbiturates (test code = PHENCURN) 200 ng/mLBenzodiaze pines 200 ng/mLTHC Cannabinoids 5 0 ng/mLOpiates(Mo rphine) 2000 ng/mLAmphe tamine 1000 ng/mLCocai ne 300 ng/mLPCP phency clidine 25 ng/mL Unconf irmed screening resul ts shouldnot be us ed for non-medical pur poses. URINALYSIS [id number] 10:58:00 Test Item Value Reference Range Interpretation Comments UA COLOR (test code = COLU) YELLOW YEL/STRAW UA APPEARANCE (test code = CLEAR CLEAR APPU) UA GLUCOSE DIPSTICK (test code NEGATIVE NEGATIVE = DGLUU) UA BILIRUBIN DIPSTICK (test NEGATIVE NEGATIVE code = BILU) UA KETONE DIPSTICK (test code NEGATIVE NEGATIVE = KETU) UA SPECIFIC GRAVITY (test code 1.008 1.005-1.030 N = SGU) UA BLOOD DIPSTICK (test code = 2+ NEGATIVE A VIOLET) UA PH DIPSTICK (test code = 7.0 5.0-7.0 N ART) UA PROTEIN DIPSTICK (test code NEGATIVE NEGATIVE = PROU) UA UROBILINIOGEN DIPSTICK 0.2 mg/dL 0.2-1.0 (test code = URO) UA NITRITE DIPSTICK (test code NEGATIVE NEGATIVE = ERIKA) UA LEUKOCYTE ESTERASE DIPSTICK 2+ NEGATIVE A (test code = LEUU) UA WBC (test code = WBCU) 4-9 WBC/HPF 0-3 A UA RBC (test code = RBCU) 4-10 RBC/HPF 0-3 UA BACTERIA (test code = BACU) NONE SEEN /HPF NONE SEEN UA SQUAMOUS CELLS (test code = 6-10 /HPF NONE SEEN A SQU) UA MUCUS (test code = MUCU) TRACE /LPF NONE SEEN CBC W/AUTO [id number] 10:50:00 Test Item Value Reference Range Interpretation Comments WHITE BLOOD CELL (test code = 12.52 x10 3/uL 4.5-11.0 H WBC) RED BLOOD CELL (test code = 3.95 x10 6/uL 3.54-5.02 N RBC) HEMOGLOBIN (test code = HGB) 11.7 g/dL 11.0-15.0 N HEMATOCRIT (test code = HCT) 37.3 % 33.0-45.0 N MEAN CELL VOLUME (test code = 94.4 fL 81.0-99.0 N MCV) MEAN CELL HGB (test code = 29.6 pg 27.0-33.0 N MCH) MEAN CELL HGB CONCETRATION 31.4 g/dL 33.0-37.0 L (test code = MCHC) RED CELL DISTRIBUTION WIDTH CV 13.9 % 11.5-14.5 N (test code = RDW) RED CELL DISTRIBUTION WIDTH SD 48.4 fL 37.0-54.0 N (test code = RDW-SD) PLATELET COUNT (test code = 342 x10 3/uL 150-400 N PLT) MEAN PLATELET VOLUME (test 10.9 fL 7.0-9.0 H code = MPV) NEUTROPHIL % (test code = NT%) 66.8 % 56.0-77.0 N IMMATURE GRANULOCYTE % (test 2.2 % 0.0-2.0 H code = IG%) LYMPHOCYTE % (test code = LY%) 21.3 % 14.0-32.0 N MONOCYTE % (test code = MO%) 8.3 % 4.8-9.0 N EOSINOPHIL % (test code = EO%) 1.1 % 0.3-3.7 N BASOPHIL % (test code = BA%) 0.3 % 0.0-2.0 N NUCLEATED RBC % (test code = 0.0 % 0-0 N NRBC%) NEUTROPHIL # (test code = NT#) 8.36 x10 3/uL 2.0-7.6 H IMMATURE GRANULOCYTE # (test 0.27 x10 3/uL 0.00-0.03 H code = IG#) LYMPHOCYTE # (test code = LY#) 2.67 x10 3/uL 1.0-3.8 N MONOCYTE # (test code = MO#) 1.04 x10 3/uL 0.1-0.8 H EOSINOPHIL # (test code = EO#) 0.14 x10 3/uL 0.0-0.2 N BASOPHIL # (test code = BA#) 0.04 x10 3/uL 0.0-0.2 N NUCLEATED RBC # (test code = 0.00 x10 3/uL 0.0-0.1 N NRBC#) MANUAL DIFF REQUIRED (test NO code = SIMON) - US RETROPERITONEAL [id number] 08:56:00 Name: REYNA EARLY : 1990 Age/S: 28 / F [address] [facility] Unit #: [id number] Loc: [place] [address] Phys: La Nena Dong MD Acct: [id number] Dis Date: Status: REG ER PHONE #: [phone] Exam Date: 11/25/2018 0851 FAX #: [phone] Reason: left flank pain EXAMS: CPT CODE: [id number] US RETROPERITONEAL COM [id number] EXAM: US RETROPERITONEAL COMPLETE DATE: 11/25/2018 7:25 AM : 1990; Age: 28 years y/o Female INDICATION: left flank pain COMPARISON: None. TECHNIQUE: Multiplanar grayscale and color Doppler ultrasound of the kidneys, aorta, IVC and urinary bladder. FINDINGS: Right kidney: Hydronephrosis: None. Size: 12.7 cm. Echogenicity: Normal. Calculi: None. Cysts: None. Masses: None. Left kidney: Hydronephrosis: Mild Size: 14.8 cm. Echogenicity: Normal. Calculi: No large stone Cysts: None. Masses: None. Abdominal aorta and bifurcation: Unable toobtain images due to pain. Inferior vena cava: Normal. Bladder: Collapsed, limiting evaluation. IMPRESSION: Mild left hydronephrosis. Evaluation is limited due to pain. SL: [id number] PAGE 1 Signed Report (CONTINUED) Name: REYNA EARLY : 1990 Age/S: 28 / F [address] [facility] Unit #: [id number] Loc: [place] [address] Phys: La Nena Dong MD Acct: [id number] Dis Date: Status: REG ER PHONE #: [phone] Exam Date: 11/25/2018 0851 FAX #: [phone] Reason: left flank pain EXAMS: CPT CODE: [id number] [facility] [address] (Continued) at 0856 Reported and signed by: Carloz Farrell D.O. CC: Gabriel Torres MD; Marcial Schultz MD; La Nena Dong MD Technologist: Dilcia Hickey RDMS(SHIRLEY)(AB) Trnlab Date/Time: 11/25/2018 (0856) [email or web address] Orig Print D/T: S: 11/25/2018 (0859) Probe: PAGE 2 Signed Report- XR CHEST 1 [id number] 19:22:00 FAX: Violeta Marie DO [phone] [place]: St: REG FAX: Gabriel Gomez [phone] --- Name: REYNA EARLY [facility] : 1990 Age/S: 28/F [address] [place] [address] Unit #: [id number] Loc: [address] [address] Phys: Violeta Grijalva DO Acct: [id number] Dis Date: Status: REG ER PHONE #: Exam Date: 11/10/2018 1900 FAX #: [phone] Reason: cough/chest pain EXAMS: CPT CODE: [id number] XR CHEST 1 V 55821 EXAM: Single view portable AP chest. EXAM DATE: 11/10/2018 at 1848 hours CLINICAL HISTORY: Cough, chest pain, COMPARISON: None The image is at low inspiratory volume. Ca rdiomediastinal silhouette is grossly within normal limits. Mild increase in the vascular markings are identified most consistent with the state. No infiltrates or effusions are identified. Visualized osseous structures demonstrate no acute abnormalities. IMPRESSION: No acute cardiopulmonary f indings identified. at 1922 Reported and signed by: Duyen Barajas M.D. CC: Violeta Grijalva DO; Gabriel Torres MD Technologist: Prieto Alcantara, RT(R); Rosenda Chavira RT (R) Trnscrd Date/Time/By: 11/10/2018 (1921) : By: [email or web address] Orig Print D/T: S: 11/10/2018 (1924) PAGE 1 Signed ReportURINALYSIS COMPLETE 2018-11-10 19:20:00 Test Item Value Reference Range Interpretation Comments UA COLOR (test code = COLU) YELLOW YEL/STRAW UA APPEARANCE (test code = APPU) SL CLOUDY CLEAR UA GLUCOSE DIPSTICK (test code = NEGATIVE NEGATIVE DGLUU) UA BILIRUBIN DIPSTICK (test code NEGATIVE NEGATIVE = BILU) UA KETONE DIPSTICK (test code = NEGATIVE NEGATIVE KETU) UA SPECIFIC GRAVITY (test code = 1.013 1.005-1.030 N SGU) UA BLOOD DIPSTICK (test code = NEGATIVE NEGATIVE VIOLET) UA PH DIPSTICK (test code = ART) 7.0 5.0-7.0 N UA PROTEIN DIPSTICK (test code = NEGATIVE NEGATIVE PROU) UA UROBILINIOGEN DIPSTICK (test 0.2 mg/dL 0.2-1.0 code = URO) UA NITRITE DIPSTICK (test code = NEGATIVE NEGATIVE ERIKA) UA LEUKOCYTE ESTERASE DIPSTICK NEGATIVE NEGATIVE (test code = LEUU) UA WBC (test code = WBCU) 4-9 WBC/HPF 0-3 A UA RBC (test code = RBCU) 0-3 RBC/HPF 0-3 UA BACTERIA (test code = BACU) TRACE /HPF NONE SEEN UA SQUAMOUS CELLS (test code = 0-5 /HPF NONE SEEN SQU) UA TRANSITIONAL CELLS (test code TRACE /HPF NONE SEEN = TRANU) UA MUCUS (test code = MUCU) TRACE /LPF NONE SEEN QNS NOTIFIED JEAN MCKNIGHT 1819- US [id number] 19:01:00 Name: REYNA EARLY [facility] [place] : 1990 Age/S: 28 / F [address] [place] [address] Bl Unit#: [id number] Loc: [place] [address] Phys: Violeta Grijalva DO Acct: [id number] Dis Date: Status: REG ER PHONE #: [phone] Exam Date: 11/10/2018 1831 FAX #: [phone] Reason: abdominal pain/ chest pain EXAMS: CPT CODE: [id number] LTD 73866 Exam: Limited obstetric ultrasound. Exam date: November 10, 2018. CLINICAL HISTORY: Abdominal/chest pain Real-time imaging of the pelvis demonstrates a jose intrauterine in vertex presentation. The cervix appears closed and measures approximately 41 mm. heart rate is 152 bpm. The placenta is posterior grade 1. The exact location of the placenta in relation to the internal os was difficult to determine secondary to a low maternal contraction. On the images provided there is no evidence of placenta previa. The amniotic fluid volume appears normal.. IMPRESSION: Jose live intrauterine in vertex presentation. If anatomic survey has not been performed previously I do recommend that this be performed perla nonemergent basis. at 1901 Reported and signed by: Duyen Barajas M.D. CC: Violeta Grijalva DO; Gabriel Torres MD Technologist: Miriam Majano RDMS () (OB) Trnscb Date/Time: 11/10/2018 (1900) [place] Orig Print D/T: S: 11/10/2018 (1903) Probe: PAGE 1 Signed ReportCOMPREHENSIVE METABOLIC [id number] 18:39:00 Test Item Value Reference Range Interpretation Comments SODIUM (test code = NA) 140 mEq/L 134-147 N POTASSIUM (test code = 3.6 mEq/L 3.4-5.0 N K) CHLORIDE (test code = 107 mEq/L 100-108 N CL) CARBON DIOXIDE (test 27 mEq/L 21-33 N code = CO2) ANION GAP (test code = 10 0-20 N GAP) GLUCOSE (test code = 86 mg/dL 70-110 N GLU) BLOOD UREA NITROGEN 5 mg/dL 7-18 L (test code = BUN) GLOMERULAR FILTRATION 146.9 110-120 H Units of measure = RATE (test code = GFR) ml/mi n/1.73 m2 CREATININE (test code = 0.5 mg/dL 0.6-1.3 L CREAT) TOTAL PROTEIN (test 7.4 g/dL 6.4-8.2 N code = PROT) ALBUMIN (test code = 2.60 g/dL 3.4-5.0 L ALB) CALCIUM (test code = 9.0 mg/dL 8.0-10.5 N CA) BILIRUBIN TOTAL (test 0.20 mg/dL 0.0-1.0 N code = BILT) SGOT/AST (test code = 40 IUnit/L 15-37 H AST) SGPT/ALT (test code = 28 IUnit/L 15-65 N ALT) ALKALINE PHOSPHATASE 86 IUnit/L 20-125 N TOTAL (test code = ALKP) CBC W/AUTO [id number] 18:25:00 Test Item Value Reference Range Interpretation Comments WHITE BLOOD CELL (test code = 9.38 x10 3/uL 4.5-11.0 N WBC) RED BLOOD CELL (test code = 3.68 x10 6/uL 3.54-5.02 N RBC) HEMOGLOBIN (test code = HGB) 11.0 g/dL 11.0-15.0 N HEMATOCRIT (test code = HCT) 34.7 % 33.0-45.0 N MEAN CELL VOLUME (test code = 94.3 fL 81.0-99.0 N MCV) MEAN CELL HGB (test code = MCH) 29.9 pg 27.0-33.0 N MEAN CELL HGB CONCETRATION 31.7 g/dL 33.0-37.0 L (test code = MCHC) RED CELL DISTRIBUTION WIDTH CV 14.1 % 11.5-14.5 N (test code = RDW) RED CELL DISTRIBUTION WIDTH SD 48.8 fL 37.0-54.0 N (test code = RDW-SD) PLATELET COUNT (test code = 306 x10 3/uL 150-400 N PLT) MEAN PLATELET VOLUME (test code 10.3 fL 7.0-9.0 H = MPV) NEUTROPHIL % (test code = NT%) 73.3 % 56.0-77.0 N IMMATURE GRANULOCYTE % (test 1.7 % 0.0-2.0 N code = IG%) LYMPHOCYTE % (test code = LY%) 14.3 % 14.0-32.0 N MONOCYTE % (test code = MO%) 9.4 % 4.8-9.0 H EOSINOPHIL % (test code = EO%) 1.0 % 0.3-3.7 N BASOPHIL % (test code = BA%) 0.3 % 0.0-2.0 N NUCLEATED RBC % (test code = 0.2 % 0-0 H NRBC%) NEUTROPHIL # (test code = NT#) 6.88 x10 3/uL 2.0-7.6 N IMMATURE GRANULOCYTE # (test 0.16 x10 3/uL 0.00-0.03 H code = IG#) LYMPHOCYTE # (test code = LY#) 1.34 x10 3/uL 1.0-3.8 N MONOCYTE # (test code = MO#) 0.88 x10 3/uL 0.1-0.8 H EOSINOPHIL # (test code = EO#) 0.09 x10 3/uL 0.0-0.2 N BASOPHIL # (test code = BA#) 0.03 x10 3/uL 0.0-0.2 N NUCLEATED RBC # (test code = 0.02 x10 3/uL 0.0-0.1 N NRBC#) MANUAL DIFF REQUIRED (test code NO = MDIFF) - DOP VEIN [id number] 18:47:00 Name: REYNA EARLY [facility] : 1990 Age/S: 18 / F [address] [place] [address] Unit #: [id number] Loc: [place] [address] Phys: Joselin Alvarez MD Acct: [id number] Dis Date: Status: UNK PHONE #: [phone] Exam Date: 12/21/2008 1843 FAX #: [phone] Reason: 36WK IUP SWELLING RLE EXAMS: CPT CODE: [id number] DOP VEIN VERNON [id number] Bilateral lower extremity venous Doppler: HISTORY: , right lower extremity swelling. FINDINGS: Real-time duplex and color Doppler sonography was completed in the deep venous system of both lower extremities. All of the veins that were evaluated show normal flow signal and venous compression. There is no intraluminal thrombus in either lower extremity. Normal response to augmentation. IMPRESSION: Negative for bilateral lower extremity DVT. at 1848 Reported and signed by: Blaise Wylie M.D. CC: Joselin Contreras Technologist: Larissa Olivas RDMS(A)(OB) Trnscb Date/Time: 12/21/2008 (1847) Maryam Orig Print D/T: S: 12/21/2008 (1848) Probe: PAGE 1 Signed Report
[2022-08-17 09:20] LABS: Urine Blood Negative (Negative); Urine Glucose Negative (Negative); Urine Protein Negative (Negative); Urine Specific Gravity >=1.030 (1.005-1.030); Urine pH 5.5 (5.0-7.0)
[2022-08-17] MEDS ORDERED: MORPHINE 2 MG/ML SYR ONE (10:09)
[2022-08-17] MEDS ORDERED: ONDANSETRON 4 MG/2 ML VIAL ONE (10:10)
[2022-08-17 10:17] LABS: Absolute Lymphocytes (CBC) 1.1 K/uL (0.7-4.9); Hematocrit 41.2 % (36.0-45.0); Lymphocytes % 23.3 % (15.3-44.8); MCV 90.9 fL (80-100); MPV 8.2 fL (7.6-11.3); RBC Red Blood Cell Count 4.54 M/uL (3.86-4.86)
[2022-08-17 10:34] LABS: Albumin 3.5 g/dL (3.4-5.0); Bilirubin Total 0.3 mg/dL (0.2-1.0); Protein, Total 7.7 g/dL (6.4-8.2)
--- NOTE | 2022-08-17 12:18 | RAD REPORT ---
EXAM DESCRIPTION: CTAbdomen Pelvis W Contrast - 08/17/2022 12:07 pm CLINICAL HISTORY: Abdominal pain. flank pain COMPARISON: No comparisons TECHNIQUE: Biphasic CT imaging of the abdomen and pelvis was performed with 100 ml non-ionic IV cont rast. All CT scans are performed using dose optimization technique as appropriate and may include automated exposure control or mA/KV adjustment according to patient size. FINDINGS: The lung bases are clear.Cholelithiasis. The liver, spleen, pancreas, adrenal glands and left kidney are within normal limits. Small stone is present right kidney without hydronephrosis. No bowel obstruction, free air, free fluid or abscess. Large fat containing umbilical hernia. The susan endix is normal. No evidence of significant lymphadenopathy. No suspicious bony findings. IMPRESSION: Cholelithiasis. Small right renal calculus without hydronephrosis. Large fat containing umbilical hernia.
[2022-08-17] MEDS ORDERED: KETOROLAC 30 MG/ML INJ ONE (13:02)
--- NOTE | 2022-08-17 13:05 | ER ---
Nurse's Notes [facility] Name: Qasim Resendez Age: 31 yrs Sex: Female : 1990 Arrival Date: 08/17/2022 Time: 08:57 Bed 11 Private MD: Diagnosis: Low back pain Presentation: 08/17 09:04 Chief complaint: Patient states: bilateral flank pain that began 4 days ago. Denies ss burning, reports frequency. Coronavirus screen: Client denies travel out of the [place] in the last 14 days. Ebola Screen: Patient denies exposure to infectious person. Patient denies travel to an Ebola-affected area in the 21 days before illness onset. Initial Sepsis Screen: Does the patient meet any 2 criteria? No. Patient's initial sepsis screen is negative. Does the patient have a suspected source of infection? No. Patient's initial sepsis screen is negative. Risk Assessment: Do you want to hurt yourself or someone else? Patient reports no desire to harm self or others. Onset of symptoms was August 13, 2022. 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 - Social history:: Smoking status: Patient reports the use of cigarette tobacco products, smokes one-half pack cigarettes per day. Screenin:20 Abuse screen: Denies threats or abuse. Denies injuries from another. Nutritional ss screening: No deficits noted. Tuberculosis screening: Never had TB. Fall Risk None identified. Assessment: 10:15 General: Appears uncomfortable, Behavior is calm, cooperative. Pain: Complains of pain ss in bilateral flank pain. Cardiovascular: Capillary refill < 3 seconds is brisk in bilateral fingers. Respiratory: Airway is patent Respiratory effort is even, unlabored, Respiratory pattern is regular, symmetrical. GI: Patient currently denies diarrhea, vomiting. Musculoskeletal: Circulation, motion, and sensation intact. Range of motion: intact in all extremities. 13:20 General: Appears in no apparent distress. comfortable, Behavior is calm, cooperative. ss Neuro: Level of Consciousness is awake, alert, obeys commands. Respiratory: Airway is patent Respiratory effort is even, unlabored, Respiratory pattern is regular, symmetrical. Derm: Skin is intact, is healthy with good turgor, Skin is dry, Skin is pink, warm \\T\\ dry. normal. Vital Signs: 09:04 Pulse 88; Resp 16; Temp 98.9(TE); Pulse Ox 99% on R/A; Weight 108.86 kg; Height 5 ft. 4 ss in. (162.56 cm); Pain 7/10; 09:09 BP 122 / 78; ss 09:04 Body Mass Index 41.20 (108.86 kg, 162.56 cm) ss ED Course: 08:57 Patient arrived in ED. mr 09:06 Triage completed. ss 09:06 Arm band placed on right wrist. 09:13 Benjie Mcnamara PA is PHCP. [facility] 09:13 Kevin Engel MD is Attending Physician. jmm 09:19 Urine collected: clean catch specimen, clear. tm3 09:20 Urine --Ancillary (enter results) Sent. eb 10:06 Ellie Gonsalez, RN is Primary Nurse. ss 12:09 CT Abd/Pelvis - IV Contrast Only In Process Unspecified. EDMS 13:19 No provider procedures requiring assistance completed. IV discontinued, intact, ss bleeding controlled, No redness/swelling at site. Pressure dressing applied. 13:20 Patient has correct armband on for positive identification. Bed in low position. Call ss light in reach. Administered Medications: 10:14 Drug: Zofran (Ondansetron) 4 mg Route: IVP; Site: left antecubital; ss 13:20 Follow up: Response: No adverse reaction ss 10:14 Drug: morphine 2 mg Route: IVP; Infused Over: 4 mins; Site: left antecubital; ss 13:20 Follow up: Response: No adverse reaction ss 13:10 Drug: Ketorolac 30 mg Route: IVP; Site: left antecubital; em6 13:20 Follow up: Response: No adverse reaction; Medication administered at discharge. ss Medication: 13:20 VIS not applicable for this client. ss Outcome: 13:04 Discharge ordered by MD. soto 13:19 Discharged to home ambulatory. 13:19 Condition: good 13:19 Discharge instructions given to patient, Instructed on discharge instructions, follow up and referral plans. medication usage, Demonstrated understanding of instructions, follow-up care, medications, Prescriptions given X 2. 13:21 Patient left the ED. Signatures: Dispatcher [employer] EDMS Holdenfarzad Ollie tm3 Benjie Mcnamara PA PA jmm Rivera, Mary mr Ellie Gonsalez RN RN Trina Chiu Erika, RN RN em6
--- NOTE | 2022-08-17 13:05 | EDPHYS ---
Physician Documentation [facility] Name: Qasim Resendez Age: 31 yrs Sex: Female : 1990 Arrival Date: 08/17/2022 Time: 08:57 Bed 11 Private MD: ED Physician Kevin Engel HPI: 08/17 09:20 This 31 yrs old Female presents to ER via Ambulatory with complaints of Urinary Problem.[facility] 09:20 This is a 31 year old female with a history of renal stones that presents to the ED jmm with complaints of right lower back pain. Patient has concerns this may be due to kidney stones. patient states the pain is not as intense as previous kidney stones. Complains of nausea. Denies vomiting or diarrhea. . 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 - Social history:: Smoking status: Patient reports the use of cigarette tobacco products, smokes one-half pack cigarettes per day. ROS: 09:20 Constitutional: Negative for fever, chills, and weight loss, Cardiovascular: Negative jm for chest pain, palpitations, and edema, Respiratory: Negative for shortness of breath, cough, wheezing, and pleuritic chest pain. 09:20 Abdomen/GI: Positive for nausea. 09:20 Back: Positive for pain at rest, pain with movement. 09:20 All other systems are negative. Exam: 09:20 Constitutional: This is a well developed, well nourished patient who is awake, alert, jmm and in no acute distress. Head/Face: atraumatic. Eyes: EOMI, no conjunctival erythema appreciated ENT: Moist Mucus Membranes Neck: Trachea midline, Supple Chest/axilla: Normal chest wall appearance and motion. Cardiovascular: Regular rate and rhythm. No edema appreciated Respiratory: Normal respirations, no respiratory distress appreciated Abdomen/GI: Non distended 09:20 Skin: General appearance color normal MS/ Extremity: Moves all extremities, no obvious deformities appreciated, no edema noted to the lower extremities Neuro: Awake and alert Psych: Behavior is normal, Mood is normal, Patient is cooperative and pleasant 09:20 Back: pain, that is moderate, of the right low back. Vital Signs: 09:04 Pulse 88; Resp 16; Temp 98.9(TE); Pulse Ox 99% on R/A; Weight 108.86 kg; Height 5 ft. 4 ss in. (162.56 cm); Pain 7/10; 09:09 BP 122 / 78; ss 09:04 Body Mass Index 41.20 (108.86 kg, 162.56 cm) ss MDM: 09:57 Patient medically screened. [facility] 13:03 Data reviewed: vital signs, nurses notes, lab test result(s), radiologic studies. [facility] Counseling: I had a detailed discussion with the patient and/or guardian regarding: the historical points, exam findings, and any diagnostic results supporting the discharge/admit diagnosis, radiology results, the need for outpatient follow up, to return to the emergency department if symptoms worsen or persist or if there are any questions or concerns that arise at home. 13:03 ED course: Pain is relieved in the ED. CT negative for an acute process. Will treat for [facility] MS pain. Advised to follow up with pcp and otherwise given strict return precautions. Patient understood and agrees with the plan of care. . 08/17 09:19 Order name: Urine --Ancillary (enter results) eb 08/17 09:20 Order name: Urine Dipstick-Ancillary; Complete Time: 09:49 [facility] 08/17 09:49 Order name: CBC with Diff; Complete Time: 10:21 [facility] 08/17 09:49 Order name: CMP; Complete Time: 10:35 [facility] 08/17 09:49 Order name: Lipase; Complete Time: 10:35 [facility] 08/17 09:50 Order name: CT Abd/Pelvis - IV Contrast Only; Complete Time: 12:24 [facility] 08/17 09:49 Order name: IV Saline Lock; Complete Time: 10:07 [facility] 08/17 09:49 Order name: Labs collected and sent; Complete Time: 10:07 [facility] Administered Medications: 10:14 Drug: Zofran (Ondansetron) 4 mg Route: IVP; Site: left antecubital; ss 13:20 Follow up: Response: No adverse reaction ss 10:14 Drug: morphine 2 mg Route: IVP; Infused Over: 4 mins; Site: left antecubital; ss 13:20 Follow up: Response: No adverse reaction ss 13:10 Drug: Ketorolac 30 mg Route: IVP; Site: left antecubital; em6 13:20 Follow up: Response: No adverse reaction; Medication administered at discharge. ss Disposition: 13:45 Co-signature as Attending Physician, Kevin Engel MD I agree with the assessment and farzad plan of care. Disposition Summary: 08/17/22 13:04 Discharge Ordered Location: Home [facility] Condition: Stable [facility] Diagnosis - Low back pain [facility] Followup: [facility] - With: Private Physician - When: 2 - 3 days - Reason: Recheck today's complaints, Continuance of care, Re-evaluation by your physician Discharge Instructions: - Discharge Summary Sheet [facility] - Acute Back Pain, Adult [facility] Forms: - Medication Reconciliation Form [facility] - Thank You Letter [facility] - Antibiotic Education [facility] - Prescription Opioid Use [facility] Prescriptions: - Zanaflex 4 mg Oral Tablet - take 1 tablet by ORAL route every 8 hours As needed; 20 tablet; Refills: 0, [facility] Product Selection Permitted - Diclofenac Sodium 75 mg Oral Tablet Sustained Release - take 1 tablet by ORAL route 2 times per day; 30 tablet; Refills: 0, Product [facility] Selection Permitted 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
[2022-08-17 13:25] VITALS: TEMP 98.9; O2SAT 99
[2022-08-17 13:26] VITALS: BP 122/78
== END 2022-08-17 13:21 | disposition home or self-care (01) ==
LOC: ER 08:31
DX: M54.50 Low back pain, unspecified (principal); K80.20 Calculus of gallbladder without cholecystitis without obstruction; F17.219 Nicotine dependence, cigarettes, with unspecified nicotine-induced disorders
CPT/HCPCS: 36415; 74177; 80053; 81003; 81025; 83690; 85025; 96374; 96375; 99284; J2270; J2405; Q9967

== ENCOUNTER 2022-09-19 08:21 | Emergency (ER) | payer SELFPAY ==
--- OUTSIDE RECORDS SUMMARY | 2022-09-19 08:33 | XMS REPORT | Continuity of Care Document ---
:1990 Author Organization [facility] t Address [address] [place] [address] Care Team Providers Name Role Phone Asked, No Pcp Primary Care Physician Unavailable Isidro RDZ, Abimbola Paige Attending Clinician Fouzia RDZ, Yony Rodas Attending Clinician Regina Ruiz Attending Clinician Unavailable Shreyas Craig DO Attending Clinician [phone] Rosalind Cueto MD Attending Clinician Brooks Boo MD Attending Clinician [phone] Brooks Toribio Attending Clinician Unavailable Andi Mojica MD Attending Clinician Torrey Javed Attending Clinician Unavailable QUENTIN BARAJAS Attending Clinician Unavailable MD KENNA LOPEZ Attending Clinician Unavailable ANDI LEÓN Attending Clinician Unavailable DO DANILO SHEPHERD Attending Clinician Unavailable DANILO SHEPHERD Attending Clinician Unavailable KIMBERLY CARROLL Attending Clinician Unavailable DANIELA BECKER Attending Clinician Unavailable Physician, No Primary or Family Admitting Clinician Unavaila QUENTIN Angeles Admitting Clinician Unavailable MD KENNA LOPEZ Admitting Clinician Unavailable VASQUES, GUEST SERVICE TEAM LEADER WADE ELLE Admitting Clinician Unavailable Payers Payer Name Policy Type Policy Number Effective Date Expiration Date S ource Problems Condition Condition Condition Status Onset Resolution Last Treating Co mments Source Name Details Category Date Date Treatment Clinician Date Symptomati Symptomati Disease Active 0 M ethodi c c 6- [facility] cholelithi 00:00: Ho spita asis asis 00 l Allergies, Adverse Reactions, Alerts Allergy Allergy Status Severity Reaction(s) Onset Inactive Treating Comm ents Source Name Type Date Date Clinician No Known DA Active U 2020-0 [facility] 7[facility]10 Clear s 00:00: [facility] No Known DA Active U 2020-0 [facility] Allergie 7-10 Clear s 00:00: [facility] No Known DA Active U 2020-0 [facility] Allergie 1-24 Clear s 00:00: [facility] No Known DA Active U 2019-0 [facility] Allergie 5-07 Clear s 00:00: [facility] No Known DA Active U 2019-0 [facility] Allergie 3-20 Clear s 00:00: [facility] No Known DA Active U 2019-0 [facility] Allergie 2-13 Clear s 00:00: [facility] No Known DA Active U 2017-1 [facility] Allergie 1-27 Clear s 00:00: [facility] No Known DA Active U 2009-0 [facility] Contrast 3-26 [place] Allergie 00:00: e s [facility] No Known DA Active U 2009-0 [facility] Drug 3-26 [place] Allergie 00:00: e s [facility] No Known DA Active U 2009-0 [facility] Food 3-26 [place] Allergie 00:00: e s [facility] No Known DA Active U 2009-0 [facility] Other 3-26 [place] Allergie 00:00: e s [facility] No Known DA Active U 2008-1 [facility] Drug 2-09 [place] Intolera 00:00: e [facility] 00 [facility] No Known DA Active U 2008-1 [facility] Drug 2- [place] [facility]era 00:00: e [facility] 00 [facility] [place] Family History Family Member Diagnosis Comments Start Date Stop Date Source Natural father Hypertension [facility] Natural father Stroke [facility] Natural mother Cancer [facility] Natural mother Hypertension [facility] Paternal grandmother Diabetes [facility] Paternal grandmother Hypertension [facility] Paternal grandmother Stroke [facility] Social History Social Habit Start Date Stop Date Quantity Comments Source History of Cigarette Smoker [facility] tobacco use Hospital Alcohol intake 2022-06-23 2022-06-23 Current [facility] 00:00:00 00:00:00 non-drinker of Hospital alcohol (finding) Tobacco use and 2022-01-02 2022-01-02 Smokeless tobacco [facility] exposure 00:00:00 00:00:00 non-user Hospital Sex Assigned At [birth year] [facility] 00:00:00 00:00:00 Hospital Smoking Status Start Date Stop Date Source Ex-smoker 2022-01-02 00:00:00 2022-01-02 00:00:00 [facility] Medications Ordered Filled Start Stop Current Ordering Indication Dosage Frequency Signature Comments Components Source Medication Medication Date Date Medication? Clinician (SIG) Name Name ondansetron No 4mg Q8H Take 1 Met hodi ODT 06-23 10-02 tablet (4 st (ZOFRAN-ODT 00:00: 04:59 mg total) Hospita ) 4 MG 00 :00 by mouth l disintegrat every 8 ing tablet (eight) hours as needed for nausea or vomiting for up to 5 days. ondansetron No 4mg Q8H Take 1 Met hodi ODT - 10-02 tablet (4 st (ZOFRAN-ODT 00:00: 04:59 mg total) Hospita ) 4 MG 00 :00 by mouth l disintegrat every 8 ing tablet (eight) hours as needed for nausea or vomiting for up to 5 days. butalbital- 2021- No 1{tbl} Q6H Take 1 M ethodi acetaminoph 06-23-[address] en-caff 00:00: 04:59 mouth Hospita (Esgic) 00 :00 every 6 l 50-325-40 (six) mg per hours as tablet needed for headaches for up to 3 days. butalbital- 2021- No 1{tbl} Q6H Take 1 M ethodi acetaminoph 06-[address] en-caff 00:00: 04:59 mouth Hospita (Esgic) 00 :00 every 6 l 50-325-40 (six) mg per hours as tablet needed for headaches for up to 3 days. metoclopram 2021- No 10mg Q8H Take 1 Met hodi jessica 05-14- tablet (10 st (REGLAN) 10 00:00: 04:59 mg total) Hospita MG tablet 00 :00 by mouth l every 8 (eight) hours as needed (headache) for up to 7 days. metoclopram 2021- No 10mg Q8H Take 1 Met hodi jessica 05-14- tablet (10 st (REGLAN) 10 00:00: 04:59 mg total) Hospita MG tablet 00 :00 by mouth l every 8 (eight) hours as needed (headache) for up to 7 days. ondansetron 2021- No 4mg Q12H Take 1 Met hodi (ZOFRAN) 4 03-17 tablet (4 st MG tablet 00:00: 04:59 mg total) Ho spita 00 :00 by mouth l every 12 (twelve) hours as needed for nausea for up to 30 days. ondansetron 2021- No 4mg Q12H Take 1 Met hodi (ZOFRAN) 4 03-17 tablet (4 st MG tablet 00:00: 04:59 mg total) Ho spita 00 :00 by mouth l every 12 (twelve) hours as needed for nausea for up to 30 days. levoFLOXaci 2021- No 750mg QD Take 1 Me thodi n 03-[address] (Levaquin) 00:00: 04:59 (750 mg Hos rain 750 MG 00 :00 total) by l tablet mouth daily for 5 days. acetamin[place] 2021- [place] [address] 5mL Q6H Take 5 mL Methodi en with 03-[address] codeine 00:00: 04:59 every 6 Hospit a (acetaminop 00 :00 (six) l hen-codeine hours as ) 120-12 needed for mg/5 mL moderate solution pain or severe pain for up to 5 days .acute pain. levoFLOXaci 2021- No 750mg QD Take 1 Me thodi n 03-[address] (Levaquin) 00:00: 04:59 (750 mg Hos rain 750 MG 00 :00 total) by l tablet mouth daily for 5 days. acetaminoph 2021- [place] 555[address] 5mL Q6H Take 5 mL Methodi en with 03-[address] codeine 00:00: 04:59 every 6 Hospit a (acetaminop 00 :00 (six) l hen-codeine hours as ) 120-12 needed for mg/5 mL moderate solution pain or severe pain for up to 5 days .acute pain. benzonatate 0 Yes 100mg Q.04623615 Take 1 Methodi (TESSALON) 6-[id number] 100 MG 00:00: 3D (100 mg Hospita capsule 00 total) by l mouth 3 (three) times a day as needed for cough. benzonatate 2021-0 Yes 100mg Q.65977369 Take 1 Methodi (TESSALON) 6-[id number] 100 MG 00:00: 3D (100 mg Hospita capsule 00 total) by l mouth 3 (three) times a day as needed for cough. albuterol 2021- No 2{puff} Q4H Inhale 2 Methodi (PROAIR 6- 07-[address] HFA) 90 00:00: 04:59 every 4 Hospit a mcg/actuati 00 :00 (four) l on inhaler hours as needed for wheezing or shortness of breath for up to 30 days. albuterol 2021-0 2021- No 2{puff} Q4H Inhale 2 Methodi (PROAIR 6- 07-[address] HFA) 90 00:00: 04:59 every 4 Hospit a mcg/actuati 00 :00 (four) l on inhaler hours as needed for wheezing or shortness of breath for up to 30 days. amoxicillin 2021-0 2021- No 1{tbl} Q12H Take 1 M ethodi -pot - 03-[address] clavulanate 00:00: 05:59 mouth Hosp kerry (AUGMENTIN) 00 :00 every 12 l 875-125 mg (twelve) per tablet hours for 7 days. amoxicillin 1{tbl} Q12H Take 1 M ethodi -pot 11-25- tablet by st clavulanate 00:00: 05:59 mouth Hosp kerry (AUGMENTIN) 00 :00 every 12 l 875-125 mg (twelve) per tablet hours for 7 days. traMADoL 50mg Q8H Take 1 Metho di (ULTRAM) 50 11-25-04 tablet (50 s t mg tablet 00:00: 05:59 mg total) Ho spita 00 :00 by mouth l every 8 (eight) hours as needed for moderate pain for up to 3 days .acute pain. traMADoL 50mg Q8H Take 1 Metho di (ULTRAM) 50 11-25-04 tablet (50 s t mg tablet 00:00: 05:59 mg total) Ho spita 00 :00 by mouth l every 8 (eight) hours as needed for moderate pain for up to 3 days .acute pain. Vital Signs Vital Name Observation Time Observation Value Comments Source Systolic blood 2022-06-24 02:34:48 139 mm[Hg] [facility] pressure Diastolic blood 2022-06-24 02:34:48 89 mm[Hg] [facility] pressure Heart rate 2022-06-24 02:34:48 79 /min [facility] Body temperature 2022-06-24 02:34:48 36.22 Jerrica [facility] Respiratory rate 2022-06-24 02:34:48 20 /min [facility] Oxygen saturation in 2022-06-24 02:34:48 99 /min [facility] Arterial blood by Pulse oximetry Body height 2022-06-24 00:39:00 162.6 cm [facility] Body weight 2022-06-24 00:39:00 113.399 kg [facility] BMI 2022-06-24 00:39:00 42.91 kg/m2 [facility] Procedures Procedure Date / Time Performing Clinician Source Performed CT HEAD WO CONTRAST 2022-06-24 02:05:05 Isidro, Abimbola [facility] CERVICAL SPINE WO 2022-06-24 02:04:53 Isidro Abimbola [facility] CONTRAST ED REFERRAL TO [place] 2022-05-14 13:11:51 Yony Vasques [facility] LATTER-DAY PHYSICIAN ORGANIZATION (PCP) ED REFERRAL TO [place] 2022-03-17 05:56:18 [facility] LATTER-DAY PHYSICIAN Vitaliy ORGANIZATION (PCP) ECG 12-LEAD 2022-03-17 05:38:10 [facility] spital Vitaliy ECG ED PRELIMINARY 2022-03-17 04:44:21 [facility] INTERPRETATION Vitaliy HCG QUALITATIVE, URINE 2022-03-17 03:49:00 [facility]W [facility]22-03[facility], RAPID 2022-03-17 03:32:00 [facility] ANTIGEN Vitaliy INFLUENZA ANTIGEN 2022-03-17 03:32:00 [facility] Vitaliy RESPIRATORY PATHOGEN 2022-03-17 03:32:00 [facility] PANEL WITH COVID-19 Vitaliy RT-PCR STREP SCREEN CULTURE 2022-03-17 03:32:00 [facility] Vitaliy XR CHEST 2 VW 2022-03-03 13:27:46 [facility] INFLUENZA ANTIGEN 2022-03-03 13:02:00 [facility] RESPIRATORY PATHOGEN 2022-03-03 13:02:00 [facility] PANEL WITH COVID-19 RT-PCR ECG ED PRELIMINARY 2022-03-03 12:53:04 Rosalind Cueto [facility] INTERPRETATION ECG 12-LEAD 2022-03-03 12:42:43 [facility] Plan of Care Planned Activity Planned Date Details Comments Source Future Scheduled 2022-09-18 Pneumococcal Vaccine: [facility] Test 14:43:59 Pediatrics (0 to 5 Years) and At-Risk Patients (6 to 64 Years) (1 - PCV) [code = Pneumococcal Vaccine: Pediatrics (0 to 5 Years) and At-Risk Patients (6 to 64 Years) (1 - PCV)] Future Scheduled 2022-09-18 Hepatitis C screening [facility] Hospital Test 14:43:59 (procedure) [code = 013854914] Future Scheduled 2022-09-18 Screening for [facility] Test 14:43:59 malignant neoplasm of cervix (procedure) [code = 513529261] Future Scheduled 2022-09-18 COVID-19 VACCINE (2 - [facility] Hospital Test 14:43:59 Pfizer series) [code = COVID-19 VACCINE (2 - Pfizer series)] Future Scheduled 2022-09-18 INFLUENZA VACCINE Method [facility] Hospital Test 14:43:59 [code = INFLUENZA VACCINE] Future Scheduled 2022-07-31 HEPATITIS B VACCINES [facility] Test 16:34:59 (1 of 3 - 3-dose series) [code = HEPATITIS B VACCINES (1 of 3 - 3-dose series)] Future Scheduled 2022-07-31 Pneumococcal Vaccine: [facility] Hospital Test 16:34:59 Pediatrics (0 to 5 Years) and At-Risk Patients (6 to 64 Years) (1 - PCV) [code = Pneumococcal Vaccine: Pediatrics (0 to 5 Years) and At-Risk Patients (6 to 64 Years) (1 - PCV)] Future Scheduled 2022-07-31 Hepatitis C screening [facility] Hospital Test 16:34:59 (procedure) [code = 177087528] Future Scheduled 2022-07-31 Screening for [facility] Hospital Test 16:34:59 malignant neoplasm of cervix (procedure) [code = 914455823] Future Scheduled 2022-07-31 COVID-19 VACCINE (2 - Me [facility] Hospital Test 16:34:59 Pfizer series) [code = COVID-19 VACCINE (2 - Pfizer series)] Future Scheduled 2022-07-31 INFLUENZA VACCINE [facility] Test 16:34:59 [code = INFLUENZA VACCINE] Encounters Start End Encounter Admission Attending Care Care Encounter Source Date/Time Date/Time Type Type Clinicians Facility Department ID 2019-10-21 Inpatient [facility]AB[facility] FERS [id number] [facility] 19:27:00 60 [facility]3] 2022-06-23 2022-06-24 Emergency Isidro, 1.2.840.1 [id number] Methodi 20:41:00 06:17:00 Abimbola H [address]861.1.[address] 3.430.2.7 Hospit a .3.647158 l .8 2022-06-23 2022-06-24 Emergency Isidro, 1.2.840.1 [id number] Methodi 20:41:00 06:17:00 Abimbola H [address]4731.1.[address] 3.430.2.7 Hospit a .3.650320 l .8 2022-06-23 2022-06-23 Travel 1.2.840.1 1.2.786.644 9301 [id number] Methodi 00:00:00 00:00:[address] 3.430.2.7 0.2.7.3.698 Ho spita .3.095119 084.8 l .8 2022-06-23 2022-06-23 Travel 1.2.840.1 1.2.296.597 3032 [id number] Methodi 00:00:00 00:00:[address] 3.430.2.7 0.2.7.3.698 Ho spita .3.585319 084.8 l .8 2022-05-14 2022-05-14 Emergency Vasques, 1.2.840.1 [id number] 2099 [id number] Methodi 08:02:00 08:37:00 [facility] [address] [place] 3.430.2.7 Hospit a .3.095969 l .8 2022-05-14 2022-05-14 Emergency Vasques, 1.2.840.1 [id number] Methodi 08:02:00 08:37:00 [facility] 8[address]85.[address] [place] 3.430.2.7 Hospit a .3.131254 l .8 2022-05-14 2022-05-14 Travel 1.2.840.1 1.2.891.546 0908 [id number] Methodi 00:00:00 00:00:[address] 3.430.2.7 0.2.7.3.698 Ho spita .3.069825 084.8 l .8 2022-05-14 2022-05-14 Travel 1.2.840.1 1.2.279.165 6297 [id number] Methodi 00:00:00 00:00:[address] 3.430.2.7 0.2.7.3.698 Ho spita .3.456355 084.8 l .8 2022-05-05 2022-05-05 Emergency EM Dark, Regina HCACL CHASITY [id number] [id number] [facility] 09:09:00 09:40:00 47 [facility] 2022-05-05 2022-05-05 Emergency EM Dark, Regina HCACL HCACL G684 430-20 [facility] 09:09:00 09:40:00 [id number] [facility] 2022-03-16 2022-03-17 Emergency Kendig, 1.2.840.1 [id number] 2099 [id number] Methodi 22:26:00 01:14:[address] Mehran 3.430.2.7 Hosp kerry .3.717188 l .8 2022-03-16 2022-03-17 Emergency Angelaig, 1.2.840.1 [id number] 2099 [id number] Methodi 22:26:00 01:14:[address] Mehran 3.430.2.7 Hosp kerry .3.043996 l .8 2022-03-03 2022-03-03 Emergency Adelso 1.2.840.1 [id number] Methodi 07:35:00 09:19:00 [address]end[address] 3.430.2.7 Hospit a .3.420682 l .8 2022-03-03 2022-03-03 Emergency Adelso 1.2.840.1 [id number] Methodi 07:35:00 09:19:00 [address] 3.430.2.7 Hospit a .3.472961 l .8 2022-01-02 2022-01-02 Emergency de [facility], 1.2.840.1 [id number] Methodi 17:02:00 18:15:[address] Rhett 3.430.2.7 Hospit a .3.347667 l .8 2022-01-02 2022-01-02 Emergency de Hernandez, 1.2.840.1 [id number] Methodi 17:02:00 18:15:[address] Rhett 3.430.2.7 Hospit a .3.904373 l .8 2022-01-02 2022-01-02 Travel 1.2.840.1 1.2.986.181 3781 [id number] Methodi 00:00:00 00:00:[address] 3.430.2.7 0.2.7.3.698 Ho spita .3.073000 084.8 l .8 2022-01-02 2022-01-02 Travel 1.2.840.1 1.2.165.827 9405 [id number] Methodi 00:00:00 00:00:[address] 3.430.2.7 0.2.7.3.698 Ho spita .3.232904 084.8 l .8 2021-12-26 2021-12-26 Emergency EM Nwpedroe, HCACL CHASITY [id number] [facility] 09:46:00 12:31:00 Brooks [id number] Cl [facility] 2021-12-26 2021-12-26 Emergency EM Nwori, HCACL HCACL [id number] [facility] 09:46:00 12:31:00 Brooks 88 Cl [facility] 2021-11-25 2021-11-26 Emergency Edwardo, 1.2.840.1 [id number] 2100 [id number] Methodi 22:58:00 00:58:[address] [place] 3.430.2.7 Hospit a .3.534747 l .8 2021-11-25 2021-11-26 Emergency Edwardo, 1.2.840.1 [id number] 2100 [id number] Methodi 22:58:00 00:58:[address] [place] 3.430.2.7 Hospit a .3.774276 l .8 2021-04-10 2021-04-10 Emergency EDWARDO, [place] [address] [id number] [address] [place] 00:00:00 00:00:00 ANDI 595 Method i 2021-04-05 2021-04-06 Emergency EM Timphalle, HCACL CHASITY [id number] [facility] 23:38:00 02:26:00 Torrey [id number] [facility] 2021-03-12 2021-03-12 Emergency EARL, [place] [address] [id number] [address] [place] 00:00:00 00:00:00 KALIF 048 Method i 2021-02-27 2021-02-28 Inpatient BARAJAS, [place] [address] 103 [id number] [address] [place] 00:00:00 00:00:00 QUENTIN 164 Method i 2021-02-16 2021-02-16 Emergency LEÓN, [facility] [id number] [address] [place] 00:00:00 00:00:00 ANDI 405 Method i 2020-12-28 2020-12-28 Emergency ISIDRO, [facility] 293 [id number] [address] [place] 00:00:00 00:00:00 ABIMBOLA 175 Method i 2020-07-14 2020-07-14 Emergency EDWADRO, [facility] [id number] [address] [place] 00:00:00 00:00:00 ANDI 585 Method i 2020-05-15 2020-05-15 Emergency JOAO, [place] [address] [id number] [address] [place] 00:00:00 00:00:00 DANILO 343 Meth janelle 2020-04-28 2020-04-28 Emergency GLEN, [facility] [id number] [address] [place] 00:00:00 00:00:00 KIMBERLY 038 Method i 2020-02-18 2020-02-18 Emergency VANDER [facility] 064 [id number] [address] [place] 00:00:00 00:00:00 Debbie BURKS Method i DANIELA malin Results Test Description Test Time Test Comments Results Result Comments Source ECG 12 lead 2022-03-26 20:01:10 Test Item Value Reference Range Interpretation Comme nts Ventricular rate (test code = 253) Atrial rate (test code = 255) TN interval (test code = 266) QRSD interval [...] of 03-MAR-2022 07:42,-No significant change was found- [facility] [id number] 20:01:10 Test Item Value Reference Range Interpretation Comments Ventricular rate (test code = 253) Atrial rate (test code = 255) TN interval (test code = 266) QRSD interval (test code = 260) QT interval (test code = 264) QTC interval (test code = 265) P axis 1 (test code = 267) QRS axis 1 (test code = 268) T wave axis (test code = 270) EKG impression (test Normal sinus code = 273) rhythm-Cannot rule out Anterior infarct , age undetermined-Abnormal ECG-In automated comparison with ECG of 03-MAR-2022 07:42,-No significant change was found- [facility] [employer] Stamptrep screen [id number] 11:15:00 Test Item Value Reference Range Interpretation Comments Strep screen No beta hemolytic Specimen culture Streptococci InformationSpec imen isolate (test isolated Source: Throat Specimen code = 547-0) Site: Not othe rwise specified [facility] Hospital[facility] screen [id number] 11:15:00 Test Item Value Reference Range Interpretation Comments Strep screen No beta hemolytic Specimen culture Streptococci InformationSpec imen isolate (test isolated Source: Throat Specimen code = 547-0) [facility] + V [id number] 00:00:00 [facility] 1990 Sex: F FAX: Winnie Martinez [phone] [place]: St: REG Name: REYNA RESENDEZ [facility] : 1990 Age/S: 31/F [address] [place] [address] Unit #: [id number] Loc: [place] [address] Phys: Winnie Begum Acct: [id number] Dis Date: Status: REG ER PHONE #: [phone] Exam Date: 12/26/2021 1015 FAX #: [phone] Reason: wrist pain EXAMS: CPT CODE: [id number] XR WRIST 3 + [place] [address] PROCEDURE INFORMATION: Exam: XR Left Wrist Exam [...] signed by: Kendrick Watkins M.D. CC: Winnie BAL [facility] Technologist: RT Olivia(Ronit) Trnscrd Date/Time/By: 12/26/2021 (1119) : B y: [email or web address] Orig Print D/T: S: 12/26/2021 (384) PAGE 1 Signed Report- XR CHEST 1 [id number] 00:48:00 [facility] : 1990 Sex: F FAX: Torrey Javed MD [phone] [place]: St: REG FAX: Anca Smyth [facility] [phone] - Name: REYNA RESENDEZ [facility] : 1990 Age/S: 30/F [address] [place] [address] Unit #: [id number] Loc:[place] [address] Phys: Anca Smyth Acct: [id number] Dis Date: Status: REG ER PHONE #: [phone] Exam Date: 04/06/202141 FAX #: [phone] Reason: cough EXAMS: CPT CODE: [id number] XR CHEST 1 V 02946 Study: - XR CHEST 1 V 04/06/2021 12:21 AM Patient Name: REYNA RESENDEZ MR: [id number] : 1990; Age: 30 years y/o Female Ordering Physician: Anca Smyth Clinical Indication: cough Comparison: Chest radiograph 10/21/2019 FINDINGS LUNGS: The hypoinflated lungs are clear of consolidation, pleural effusion, and pneumothorax. HEART AND MEDIASTINUM: Normal size heart. LINES: None. OSSEOUS STRUCTURES: No fracture, dislocation, or suspicious focal osseous lesion. OTHER: None. IMPRESSION: Mildly hypoinflated, but clear lungs. SL: TPAINTER-H at 0048 Reported and signed by: Lucas Nicole M.D. CC: Torrey Javed MD; Anca Smyth Technologist: RT Magalie(Ronit) Trnscrd Date/Time/By: 04/06/2021 (004) : By: [email or web address] Orig Print D/T: S: 04/06/2021 (005) PAGE 1 Signed ReportCoronavirus 2018 nCoV [id number] 00:35:00 Test Item Value Reference Range Interpretation Comments Coronavirus 2019 NEGATIVE Negative Negative re sults should be nCoV Bedside (test treated a s presumptive and, code = ifinconsistent with [id number]) clinical signs and symptoms or necessaryfor patient management, nancy uld be tested with an alternativemole cular assay. Negative result s do not preclude JMXI-JqI-7nionh tion and should not be u sed as the sole basis forp atient management deci sions. Negative result s should beconsidered in the context of a patient's recent exposures,histo ry, presence of clinical sig ns and symptoms consis tentwith COVID-19. 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 (COVID-19) RNA [Presence] in Respiratory specimen by KEENAN with probe [id number] 01:13:01 Test Item Value Reference Range Interpretation Comments SARS-CoV-2 (COVID-19) RNA Not detected Not-Detected [Presence] in Respiratory specimen by KEENAN with probe detection (test code = 39885-3) [facility]- XR CHEST 2 [id number] 20:09:00 Name: REYNA RESENDEZ [facility] : 1990 Age/S:29 /F [address] [facility] Unit#:[id number] Loc: [place] [address] Phys: Enrico Davies MD Dis Date: PHONE #: [phone] Status: REG ER FAX #: [phone] Exam Date: 10/21/2019 Reason:cough EXAMS: CPT CODE: [id number] XR CHEST 2 V 52158 REASON FOR EXAM: cough Exam Order Date: [...] SALMA MARCIAL RT(R),RDMS,CT Trnscrpt Data: 10/21/2019 (2008) [email or web address] Orig Print D/T: S: 10/21/2019 (2011) PAGE 1 Signed ReportCAPILLARY BLOOD [id number] 18:20:00 Test Item Value Reference Range Interpretation Comments TOTAL CO2 CONTENT TEST NOT 24.0-30.0 N Previously reported (test code = TCO2) PERFORMED MMOL/L resul t: 29.0 MMOL/LEdited by : THOMAS on 02/01/19:6918451808: TCO2 previously repo rted as: 29.0 MMOL/L CAPILLARY BLOOD TEST NOT 7.33-7.45 Previously r eported GAS PH (test code PERFORMED result: 7. 22 Edited = PHC) by: THOMAS o n 02/01/19:1807 02/01/191806: CBG PH previously reported as: 7. 22 L CAPILLARY BLOOD TEST NOT 35-45 Previously r eported GAS PCO2 (test PERFORMED mmHg result: 66 code = PCO2C) mmHgEdited by: THOMAS on 02/01/19:568418 9 1807: CBG PCO 2 previously repo rted as: 66 *H mmHg CAPILLARY BLOOD TEST NOT 30-50 N Previously r eported GAS PO2 (test code PERFORMED mmHg result: 39 = PO2C) mmHgEdited by: THOMAS on 02/01/19:273066 9 1807: CBG PO2 previously repo rted as: 39 mmHg CBG HCO3 (test TEST NOT 18-24 Previously re ported code = HCO3C) PERFORMED mmol/L result: 27 mmol/LEdited by : THOMAS on 02/01/19: 9 1808: HCO3C previously repo rted as: 27 H mmol/L CBG BASE EXCESS TEST NOT -4-4 N Previously r eported (test code = BEC) PERFORMED mmol/L result : -1.0 mmol/LEdited by : THOMAS on 02/01/19: 9 180: BASE EX C previously repo rted as: -1.0 mmol/L CBG O2 SATURATION TEST NOT Previously reported (test code = SATC) PERFORMED % result: 6 3 %Edited by: THOMAS o n 02/01/19: 9 1808: O2 SAT previously repo rted as: 63 [...] by GAS PEEP (test PERFORMED 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 code = PEEPC) [facility]Previously reported result : [id number] by: [email or web address] on 03/07/19:1820 03/07/19 1820: PEEP previously repo rted as: cmH2O Perfo rmed by certified media production operator [facility]Previously reported result : 7 [id number] by: THOMAS on 02/01/19: 9 180: PEEP previously repo rted as: 7 cmH2O Performed by certified opera tor at [facility] CBG TEMPERATURE TEST NOT Previously r eported (test code = PERFORMED F result: 98.0 FE dited TEMPC) by: THOMAS o n 02/01/19: 9 1808: TEMPC previously repo rted as: 98.0 F CAPILLARY BLOOD TEST NOT Previously r eported GAS SITE (test PERFORMED result: Heel Edited code = SITEC) by: THOMAS on 02/01/19:1808: SITE previously repo rted as: Heel VENOUS BLOOD [id number] 18:19:00 Test Item Value Reference Range Interpretation [...] y PEEP (test code PERFORMED 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 at = PEEPV) [facility]trPreviously reported result : [id number] by: SERGIO on 03/07/19:181803/07/191818: VBG PEEP previously reported as: cm H2O Performed by certified opera tor at [facility]trPreviously reported result : 5 [id number] by: THOMAS on 02/01/19:180902/01/191809: VBG PEEP previously reported as: 5 cmH2O Performed by certified opera tor at [facility] VENOUS BLOOD GAS TEST NOT Previously reported TEMP (test code PERFORMED F result: 97.6 FEdited = TEMPV) by: THOMAS o n 02/01/19:1809: TEMPV previously repo rted as: 97.6 F VENOUS BLOOD GAS Other SITE (test code = SITEV) VENOUS TCO2 TEST NOT Previously repo rted (test code = PERFORMED result: 29 Edit ed by: TCO2V) THOMAS on 02/01/19:1809: TCO2V previously repo rted as: 29 - CT ABD PELVIS [id number] 00:56:00 Name: CHU RESENDEZWHITLEY BETI [facility] : 1990 Age/S: 28 / F [address] [place] [address] Unit #: [id number] Loc: [place] [address] Phys: Winnie Begum [employer] Acct: [id number] Dis Date: Status: REG ER PHONE #: [phone] Exam Date: 02/07/201936 FAX #: [phone] Reason: s/p , upper abd pain and fevers. EXAMS: CPT CODE: [id number] CT ABD PELVIS W/CONT 90263 EXAM: CT, CT ABDOMEN PELVIS W CONTRAST: [...] condition. APPENDIX: Not seen on the exam. Noinflammatory changes in the right lower flank. PERITONEUM AND RETROPERITONEUM: No ascites or free air. There is no aortic aneurysm or dissection. Fat-containing umbilical hernia. Mild inflammatory changes in the subcutaneous fat around the umbilicus with trace subcutaneous air probably due to recent procedure. LYMPH NODES: Unremarkable. PELVIS: No pelvic mass or adenopathy. Enlarged uterus. Ovaries are not visualized. BLADDER: Unremarkable. OSSEOUS STRUCTURES: Suboptimally seen bilateralpars defect at L5 with PAGE 1 Signed Report (CONTINUED) Name: REYNA RESENDEZ [facility] Amari Willson : 1990 Age/S: 28 / F [address] [place] [address] Unit #: [id number] Loc: [place] [address] Phys: Winnie Begum [employer]IC Acct: [id number] Dis Date: Status: REG ER PHONE #: [phone] Exam Date: 02/07/201936 FAX #: [phone] Reason: s/p c- section, upper abd pain and fevers. EXAMS: CPT CODE: [id number] CT ABD PELVIS W/CONT 95714 (Continued) slight anterior listhesis of L5 on S1. Mild degenerative changes at L5-S1. SOFT TISSUES: Mild bilateral and edematous changes in the lateral lower abdominal wall and the subcutaneous tissue of the lumbar region. IMPRESSION: 1. Mildly prominentfluid-filled small and large bowel loops most likely due to diarrheal condition. No bowel obstruction seen. 2. Periumbilical subcutaneous edema and inflammatory changes with trace subcutaneous air, probably due to recent procedure. 3. Punctate bilateral renal stones. No hydronephrosis seen. 4. Enlarged uterus. 5. Small fat- containing umbilical hernia. SL: SHANA at 0056 Reported and signed by: Jairo Reynolds M.D. CC: Violeta Grijalva DO; Gabriel Torres MD; Winnie Begum NP Technologist:RT Tigre(R) CTDI: DLP: Trnscb Date/Time: 02/07/2019 (0056) [email or web address] Orig Print D/T: S: 02/07/2019 (0059) PAGE 2 Signed Report COMPREHENSIVE METABOLIC [id number] 23:40:00 Test Item Value Reference Range Interpretation [...] TOTAL (test code = ALKP) COMPREHENSIVE METABOLIC [id number] 23:36:00 Test Item Value Reference Range Interpretation [...] TOTAL (test code = ALKP) CBC W/AUTO [id number] 23:33:00 Test Item Value Reference Range Interpretation [...] DIFF REQUIRED (test NO code = SIMON) SURGICAL [id number] 08:10:00 RUN DATE: 02/04/19 [facility] *LIVE* PAGE 1 RUN TIME: 0810 Specimen Inquiry RUN USER: INTERFACE --PATIENT: REYNA RESENDEZ LOC: [place] U #: [id number] AGE/SX: 28/F ROOM: [facility] RE02/01/19OLY DR: Gabriel Torres MD : 89 BED: 1 DIS: STATUS: ADM IN TLOC: SPEC #: [id number] RECD: 02/02/19 STATUS: NASIM RUSSO #: [id number] [place]: 02/02/191658 [facility] DR: Gabriel Torres MD ENTERED: 02/03/19 SP TYPE: SURG SPEC OTHR DR: Self Referred Erick Carbajal MD, JR, Patrick MDORDERED: GM LEVEL 4 CODES: [id number] - FALLOPIAN TUBE [id number] - PLACENTA, NOS COPIES TO: Self Referred Gabriel Torres MD [address] [place], [place] [address] [email or web address] Erick Carbajal MD [address] [address] [email or web address] Roderick Daniel JR, MD [address] [facility] [address] [place] [address] PROCEDURES: GM LEVEL 4 (Incomplete) TISSUES: 1. PLACENTA, NOS - Placenta, 3rd trimester. 2. FALLOPIAN TUBE, NOS - Fallopian tube, right, segment 3. FALLOPIAN TUBE, NOS - Fallopian tube, left, segment FINAL DIAGNOSIS Placenta, 3rd trimester: Jose placenta (458 g, 75th percentile for gestational age). Fallopian tube, right, segment: Complete cross section of fallopian tube. Fallopian tube, left, segment: Complete cross section of fallopian tube. CONTINUED ON NEXT PAGE RUN DATE: 02/04/19 [facility] *LIVE* PAGE 2 RUN TIME: 809 Specimen Inquiry RUN USER: INTERFACE SPEC #: [id number] PATIENT: REYNA RESENDEZ #[id number] (Contin ued) GROSS AND MICROSCOPIC GROSS EXAMINATION: Received in formalin labeled placenta is a 458 g 18 x 15 x 2.4 cm placenta. The surface is bluegray with tortuous vessels on the surface. Maternal surface is intact with adherent hemorrhage. The eccentrically inserted 3 vessel umbilical cord measures 13 cm inlength 1.9 cm in diameter with false knots. [...] infiltrate. Each fallopian tube is seen in complete cross-section without significant atypia. POST-OP DIAGNOSIS induced hypertension, GBS unknown, repeat C- section with bilateral tubal ligation, delivered PRE-OP DIAGNOSIS induced hypertension, GBS unknown, repeat with bilateral tubal ligation, delivered Signed SIGNATURE ON FILE Domenico Sherwood DO 02/04/19 0810 END OF REPORT CBC W/AUTO [id number] 07:37:00 Test Item Value Reference Range Interpretation [...] MDIFF) COMMENTS: POD #1 and #2COMPREHENSIVE METABOLIC [id number] 05:40:00 Test Item Value Reference Range Interpretation [...] code = ALKP) COMMENTS: POD #1CBC W/AUTO [id number] 05:36:00 Test Item Value Reference Range Interpretation [...] MDIFF) COMMENTS: POD #1 and #2VENOUS BLOOD [id number] 18:10:00 Test Item Value Reference Range Interpretation [...] med by certified (test code = PEEPV) media production operator [facility] CtrPrevious ly reported result : 5 [id number] by: THOMAS on 02/01/19:181 0 02/01/191809: VBG PEEP previously reported as: 5 cmH2O Performed by ce rtified media production operator at [facility] VENOUS BLOOD GAS TEMP F Previo usly reported (test code = TEMPV) result: 97.6 FEdited by: THOMAS on 02/01/19:1809: TEMPV pre viously reported as: 97 .6 F VENOUS BLOOD GAS SITE Other (test code = SITEV) VENOUS TCO2 (test Previously reported code = TCO2V) result: 29 Gamal lon by: THOMAS on 02/01/19:1809: TCO2V pre viously reported as: 29 CAPILLARY BLOOD [id number] 18:09:00 Test Item Value Reference Range Interpretation Comments TOTAL CO2 CONTENT MMOL/L 24.0-30.0 N Previously reported (test code = TCO2) result: 2 9.0 MMOL/LEdited by : THOMAS on 02/01/19:1808: TCO2 prev iously reported as: 29 .0 MMOL/L CAPILLARY BLOOD GAS PH 7.33-7.45 Previ ously reported (test code = PHC) result: 7. 22 Edited by: THOMAS on 02/01/19:1807 0 02/01/191806: CBG PH pr eviously reported [...] 27 mmol /LEdited by: THOMAS o n 02/01/19: 180: HCO3C pre viously reported as: 27 H mmol/L CBG BASE EXCESS (test mmol/L -4-4 N Previo usly reported code = BEC) result: -1.0 mmol/LEdited by : THOMAS on 02/01/19: 180: BASE EXC previously repo rted as: -1.0 [...] d by certified PEEP (test code = media production operator a t [employer] PEEPC) Med CtrPrevious ly reported result : 7 [id number] by: THOMAS on 02/01/19:1808: PEEP prev iously reported as: 7 cmH2O Performed by ce rtified media production operator at [facility] CBG TEMPERATURE (test F Previo usly reported code = TEMPC) result: 98.0 F Edited by: THOMAS on 02/01/19:1808: TEMPC pre viously reported as: 98 .0 F CAPILLARY BLOOD GAS Previous ly reported SITE (test code = result: He el Edited by: NATASHA) THOMAS on 02/01/19:1808: SITE prev iously reported as: He el CAPILLARY BLOOD [id number] 17:48:00 Test Item Value Reference Range Interpretation [...] d by PEEP (test code = certified media production operator PEEPC) at [facility] CBG TEMPERATURE (test 98.0 F code = TEMPC) CAPILLARY BLOOD GAS Heel SITE (test code = SITEC) VENOUS BLOOD [id number] 14:27:00 Test Item Value Reference Range Interpretation [...] by (test code = PEEPV) certifie d media production operator at [facility] VENOUS BLOOD GAS TEMP 97.6 F (test code = TEMPV) VENOUS BLOOD GAS SITE Other (test code = SITEV) VENOUS TCO2 (test 29 code = TCO2V) CORD ARTERIAL BLOOD [id number] 14:03:00 Test Item Value Reference Range Interpretation [...] O2S/C) 9 % 25-45 L COMPREHENSIVE METABOLIC [id number] 17:24:00 Test Item Value Reference Range Interpretation [...] N TOTAL (test code = ALKP) URIC [id number] 17:24:00 Test Item Value Reference Range Interpretation Comments URIC ACID (test code = URIC) 4.6 mg/dL 2.6-7.2 N LACTIC DEHYDROGENASE(LDH)2019-01-31 17:24:00 Test Item Value Reference Range Interpretation Comments LACTIC DEHYDROGENASE(LDH) (test 154 IUnits/L 84-246 N code = LDH) URINALYSIS [id number] 17:09:00 Test Item Value Reference Range Interpretation [...] MUCU) TRACE /LPF NONE SEEN CBC W/AUTO [id number] 17:04:00 Test Item Value Reference Range Interpretation [...] (test NO code = MDIFF) COMPREHENSIVE METABOLIC [id number] 23:53:00 Test Item Value Reference Range Interpretation [...] N TOTAL (test code = ALKP) URIC [id number] 23:53:00 Test Item Value Reference Range Interpretation Comments URIC ACID (test code = URIC) 4.2 mg/dL 2.6-7.2 N LACTIC DEHYDROGENASE(LDH)2019-01-26 23:53:00 Test Item Value Reference Range Interpretation Comments LACTIC DEHYDROGENASE(LDH) (test 144 IUnits/L 84-246 N code = LDH) DRUGS OF ABUSE SCREEN [id number] 23:45:00 Test Item Value Reference Range Interpretation [...] ed for non-medical pur poses. AMNISURE (ROM) [id number] 23:43:00 Test Item Value Reference Range Interpretation Comments AMNISURE (ROM) TEST (test NEGATIVE NEGATIVE OP ENED:12/05/2018 code = AMNI) COMPREHENSIVE METABOLIC [id number] 23:39:00 Test Item Value Reference Range Interpretation [...] 20-125 TOTAL (test code = ALKP) URIC [id number] 23:39:00 Test Item Value Reference Range Interpretation Comments URIC ACID (test code = URIC) 4.2 mg/dL 2.6-7.2 N LACTIC DEHYDROGENASE(LDH)2019-01-26 23:39:00 Test Item Value Reference Range Interpretation Comments LACTIC DEHYDROGENASE(LDH) (test IUnits/L 84-246 code = LDH) DRUGS OF ABUSE SCREEN [id number] 23:36:00 Test Item Value Reference Range Interpretation [...] us ed for non-medical pur poses. URINALYSIS [id number] 23:31:00 Test Item Value Reference Range Interpretation [...] DIPSTICK (test code = 7.0 5.0-7.0 N ATR) UA PROTEIN DIPSTICK (test code NEGATIVE NEGATIVE [...] MUCU) TRACE /LPF NONE SEEN CBC W/AUTO [id number] 23:26:00 Test Item Value Reference Range Interpretation [...] REQUIRED (test NO code = MDIFF) URINALYSIS [id number] 14:32:00 Test Item Value Reference Range Interpretation [...] MUCU) TRACE /LPF NONE SEEN COMPREHENSIVE METABOLIC [id number] 14:30:00 Test Item Value Reference Range Interpretation [...] N TOTAL (test code = ALKP) URIC [id number] 14:30:00 Test Item Value Reference Range Interpretation Comments URIC ACID (test code = URIC) 4.3 mg/dL 2.6-7.2 N LACTIC DEHYDROGENASE(LDH)2019-01-20 14:30:00 Test Item Value Reference Range Interpretation Comments LACTIC DEHYDROGENASE(LDH) (test 128 IUnits/L 84-246 N code = LDH) COMPREHENSIVE METABOLIC [id number] 14:20:00 Test Item Value Reference Range Interpretation [...] 20-125 TOTAL (test code = ALKP) URIC [id number] 14:20:00 Test Item Value Reference Range Interpretation Comments URIC ACID (test code = URIC) 4.3 mg/dL 2.6-7.2 N LACTIC DEHYDROGENASE(LDH)2019-01-20 14:20:00 Test Item Value Reference Range Interpretation Comments LACTIC DEHYDROGENASE(LDH) (test IUnits/L 84-246 code = LDH) CBC W/AUTO [id number] 14:06:00 Test Item Value Reference Range Interpretation [...] (test NO code = MDIFF) RAPID PLASMA [id number] 12:19:00 Test Item Value Reference Range Interpretation Comments RAPID PLASMA REAGIN (test code = NONREACTIVE NONREACTIVE RPR) AG HEPATITIS B [id number] 12:19:00 Test Item Value Reference Range Interpretation Comments AG HEPATITIS B SURFACE NON REACTIVE INDEX NonReactive (test code = HBSAG) AB HIV 1 12:19:00 Test Item Value Reference Range Interpretation Comments AB HIV 1 2 (test code = NONREACTIVE INDEX NONREACTIVE XLE52NT) COMPREHENSIVE METABOLIC [id number] 05:49:00 Test Item Value Reference Range Interpretation [...] N TOTAL (test code = ALKP) URIC [id number] 05:49:00 Test Item Value Reference Range Interpretation Comments URIC ACID (test code = URIC) 4.4 mg/dL 2.6-7.2 N LACTIC DEHYDROGENASE(LDH)2019-01-08 05:49:00 Test Item Value Reference Range Interpretation Comments LACTIC DEHYDROGENASE(LDH) (test 110 IUnits/L 84-246 N code = LDH) COMPREHENSIVE METABOLIC [id number] 05:43:00 Test Item Value Reference Range Interpretation [...] 20-125 TOTAL (test code = ALKP) URIC [id number] 05:43:00 Test Item Value Reference Range Interpretation Comments URIC ACID (test code = URIC) 4.4 mg/dL 2.6-7.2 N LACTIC DEHYDROGENASE(LDH)2019-01-08 05:43:00 Test Item Value Reference Range Interpretation Comments LACTIC DEHYDROGENASE(LDH) (test IUnits/L 84-246 code = LDH) URINALYSIS [id number] 05:35:00 Test Item Value Reference Range Interpretation [...] = 1+ /HPF NONE A YEASTUBD) URINALYSIS [id number] 05:33:00 Test Item Value Reference Range Interpretation [...] 1+ /HPF NONE A YEASTUBD) CBC W/AUTO [id number] 05:25:00 Test Item Value Reference Range Interpretation [...] (test code NO = MDIFF) - US [id number] 00:53:00 Name: REYNA RESENDEZ [facility] : 1990 Age/S: 28 / F [address] [place] [address] Unit #: [id number] Loc: [place] [address] Phys: Jayme Christianson MD Acct: [id number] Dis Da te: Status: ADM IN PHONE #: [phone] Exam Date: 01/07/2019 000 FAX #: [phone] Reason: Hardto find FHT EXAMS: CPT CODE: [id number] [place] [address] EXAM: US, US LTD: 01/07/2019, 2356 hours [...] Placenta is posterior. No evidence of placenta previa. IMPRESSION: 1. Single viable intrauterine gestation with positive cardiac activity. SL: SHANA at 0053 Reported and signed by: Jairo Reynolds M.D. CC: Gabriel Torres MD; Jayme Christianson Technologist: Valeria Marr RDMS(Lily) Trnscb Date/Time: 01/08/2019 (005) [email or web address] Orig Print D/T: S: 01/08/2019 (0056) Probe: PAGE 1 Signed ReportRAPID PLASMA [id number] 21:20:00 Test Item Value Reference Range Interpretation Comments RAPID PLASMA REAGIN (test code = RPR) NONREACTIVE AG HEPATITIS B [id number] 21:20:00 Test Item Value Reference Range Interpretation Comments AG HEPATITIS B SURFACE NON REACTIVE INDEX NonReactive (test code = HBSAG) AB HIV 1 21:20:00 Test Item Value Reference Range Interpretation Comments AB HIV 1 2 (test code = NONREACTIVE INDEX NONREACTIVE [id number]) RAPID PLASMA [id number] 16:37:00 Test Item Value Reference Range Interpretation Comments RAPID PLASMA REAGIN (test code = RPR) NONREACTIVE AG HEPATITIS B [id number] 16:37:00 Test Item Value Reference Range Interpretation Comments AG HEPATITIS B SURFACE NON REACTIVE INDEX NonReactive (test code = HBSAG) AB HIV 1 16:37:00 Test Item Value Reference Range Interpretation Comments AB HIV 1 2 (test code = EFI84DO) INDEX NONREACTIVE CBC W/AUTO [id number] 16:23:00 Test Item Value Reference Range Interpretation [...] (test NO code = MDIFF) COMPREHENSIVE METABOLIC [id number] 16:19:00 Test Item Value Reference Range Interpretation [...] N TOTAL (test code = ALKP) URINALYSIS [id number] 16:14:00 Test Item Value Reference Range Interpretation [...] = MUCU) TRACE /LPF NONE SEEN URINALYSIS [id number] 13:59:00 Test Item Value Reference Range Interpretation [...] /LPF NONE SEEN - XR CHEST 2 [id number] 11:56:00 FAX: Gabriel Gomez [phone] [place]: St: REG FAX: Shanice Mccarthy DO Name: REYNA RESENDEZ [facility] : 1990 Age/S: 28/F [address] [place] [address] Unit #: [id number] Loc: [place] [address] Phys: Shanice Mccarthy DO Acct: [id number] Dis Date: Status: REG ER PHONE #: [phone] Date: 12/15/2018 1152 FAX #: [phone] Reason: cough EXAMS: CPT CODE: [id number] XR CHEST 2 V 29317 CHEST RADIOGRAPHS - PA AND LATERAL: COMPARISON: [...] Technologist: Annie Jenkins RT(R) Trnscrd Date/Time/By: 12/15/2018 (3021) : By: [email or web address] Orig Print D/T: S: 12/15/2018 (8665) PAGE 1 Signed Report- XR CHEST 1 [id number] 22:02:00 FAX: Gabriel Gomez [phone] [place]: St: REG FAX: Y Zain Harris MD [phone] - Name: REYNA RESENDEZ [facility] : 1990 Age/S: 28/F [address] [place] [address] Blvd Unit #: [id number] Loc:[place] [address] Phys: Zain Harris MD Acct: [id number] Dis Date: Status: REG ER PHONE #: [phone] Exam Date: 12/12/20182199 FAX #: [phone] Reason: cough EXAMS: CPT CODE: [id number] XR CHEST 1 V 82740 SINGLE VIEW RADIOGRAPH CHEST INDICATION: cough. TECHNIQUE: A single view frontal radiograph of the chest was obtained. COMPARISONS: Chest x-ray 11/10/2018 FINDINGS: There is no acute osseous fracture or dislocation. There is no subdiaphragmatic free gas. The cardiomediastinal size and contour are normal. There is no pneumothorax, pleural effusion or organized pneumonia. IMPRESSION: 1. No acute cardiopulmonary process. at 2202 Reported and signed by: Nitesh Christiansen D.O. CC: Gabriel Torres MD; Zain Harris MD Technologist: MILADY Stack RT(R) Trnscrd Date/Time/By: 12/12/2018 (2201) : By: [email or web address] Orig Print D/T: S: 12/12/2018 (2204) PAGE 1 Signed ReportURINALYSIS [id number] 15:23:00 Test Item Value Reference Range Interpretation [...] /LPF NONE SEEN DRUGS OF ABUSE SCREEN [id number] 11:29:00 Test Item Value Reference Range Interpretation [...] ed for non-medical pur poses. COMPREHENSIVE METABOLIC [id number] 11:20:00 Test Item Value Reference Range Interpretation [...] TOTAL (test code = ALKP) COMPREHENSIVE METABOLIC [id number] 11:19:00 Test Item Value Reference Range Interpretation [...] code = ALKP) DRUGS OF ABUSE SCREEN [id number] 11:14:00 Test Item Value Reference Range Interpretation [...] us ed for non-medical pur poses. URINALYSIS [id number] 10:58:00 Test Item Value Reference Range Interpretation [...] MUCU) TRACE /LPF NONE SEEN CBC W/AUTO [id number] 10:50:00 Test Item Value Reference Range Interpretation [...] DIFF REQUIRED (test NO code = MDIFF) - US RETROPERITONEAL [id number] 08:56:00 Name: REYNA RESENDEZ [facility] : 1990 Age/S: 28 / F [address] [place] [address] Unit#: [id number] Loc: [place] [address] Phys: La Nena Dong MD Acct: [id number] Dis Date: Status: REG ER PHONE #: [phone] Exam Date: 11/25/2018 0851 FAX #: [phone] Reason: left flank pain EXAMS: CPT CODE: [id number] US RETROPERITONEAL COM 50649 EXAM: US RETROPERITONEAL COMPLETE DATE: 11/25/2018 7:25 AM : 1990; Age: 28 years y/o Female INDICATION: left flank pain COMPARISON: None. TECHNIQUE: Multiplanar grayscale and color Doppler ultrasound of the kidneys, aorta, IVC and urinary bladder. FINDINGS: Right kidney: Hydronephrosis: None. Size: 12.7 cm. Echogenicity: Normal. Calculi: None. Cysts: None. Masses: None. Left kidney: Hydronephrosis: Mild Size: 14.8 cm. Echogenicity:Normal. Calculi: No large stone Cysts: None. Masses: None. Abdominal aorta and bifurcation: Unable to obtain images due to pain. Inferior vena cava: Normal. Bladder: Collapsed, limiting evaluation. IMPRESSION: Mild left hydronephrosis. Evaluation is limited due to pain. SL: [id number] PAGE 1 SignedReport (CONTINUED) Name: REYNA RESENDEZ [facility] [employer] : 1990 Age/S: 28 / F [address] [place] [address] Blvd Unit #: [id number] Loc: [place] [address] Phys: La Nena Dong MD Acct: [id number] Dis Date: Status: REG ER PHONE #: [phone] Exam Date: 11/25/2018 0851 FAX #: [phone] Reason: left flank pain EXAMS: CPT CODE: [id number] [facility] [address] (Continued) at 0856 Reported and signed by: Carloz Farrell D.O. CC: Gabriel Torres MD; Marcial Schultz MD; La Nena Dong MD Technologist: Dilcia Hickey RDMS(SHIRLEY)(AB) Trnscb Date/Time: 11/25/2018 (0856) [email or web address] Orig Print D/T: S: 11/25/2018 (0859) Probe: PAGE 2 Signed Report- XR CHEST 1 [id number] 19:22:00 FAX: Violeta Marie DO [phone] [place]: St: REG FAX: Gabriel Gomez [phone] --- Name: REYNA RESENDEZ [facility] [employer] : 1990 Age/S: 28/F [address] [place] [address] Blvd Unit #: [id number] Loc: [place] [address] Phys: Violeta Grijalva DO Acct: [id number] Dis Date: Status: REG ER PHONE #: Exam Date: 11/10/2018 1900 FAX #: [phone] Reason: cough/chest pain EXAMS: CPT CODE: [id number] XR CHEST 1 V 67581 EXAM: Single view portable AP chest. EXAM DATE: 11/10/2018 at 1848 hours CLINICAL HISTORY: Cough, chest pain, COMPARISON: None The image is at low inspiratory volume. Ca rdiomediastinal silhouette is grossly within normal limits. Mild increase in the vascular markings are identified most consistent with the state. No infiltrates or effusions are identified. Visualized osseous structures demonstrate no acute abnormalities. IMPRESSION: No acute cardiopulmonaryfindings identified. at 1921 Reported and signed by: Duyen Barajas M.D. CC: Violeta Parismelissa MOORE; Gabriel Torres MD Technologist: RT Kodi(R); RT Jaime (R) Trnscrd Date/Time/By: 11/10/2018 (1921) : By: Gasper Orig Print D/T: S: 11/10/2018 (1924) PAGE [...] SEEN QNS NOTIFIED JEAN MCKNIGHT 1819- US [id number] 19:01:00 Name: REYNA RESENDEZ [facility] : 1990 Age/S: 28 / F [address] [place] [address] Unit#: [id number] Loc: [place] [address] Phys: Violeta Grijalva DO Acct: [id number] Dis Date: Status: REG ER PHONE #: [phone] Exam Date: 11/10/2018 1831 FAX #: [phone] Reason: abdominal pain/ chest pain EXAMS: CPT CODE: [id number] US LTD 23379 Exam: Limited obstetric ultrasound. Examdate: November 10, 2018. CLINICAL HISTORY: Abdominal/chest pain Real-time imaging of the pelvis demonstrates a jose intrauterine in vertex presentation. The cervix appears closed and measures approximately 41 mm. heart rate is 152 bpm. The placenta is posterior grade 1. The exact location of the placenta in relation to the internal os was difficult to determine secondary to a lowmaternal contraction. On the images provided there is no evidence of placenta previa. The amniotic fluid volume appears normal.. IMPRESSION: Jose live intrauterine in vertex presentation. If anatomic survey has not been performed previously I do recommend that this be performed perla nonemergent basis. at 1901 Reported and signed by: Duyen Barajas M.D. CC: Violeta Grijalva DO; Gabriel Torres MD Technologist: Miriam Majano RDMS (AB) (OB) Trnscb Date/Time: 11/10/2018 (1900) Gasper Orig Print D/T: S: 11/10/2018 (1903) Probe: PAGE 1 Signed ReportCOMPREHENSIVE METABOLIC [id number] 18:39:00 Test Item Value Reference Range Interpretation [...] TOTAL (test code = ALKP) CBC W/AUTO [id number] 18:25:00 Test Item Value Reference Range Interpretation [...] code NO = MDIFF) - DOP VEIN [id number] 18:47:00 [facility] 1990 Age/S: 18 / F [address] [place] [address] Unit #: [id number] Loc: [place] [address] Phys: Joselin Alvarez MD Acct: [id number] Dis Date: Status: UNK PHONE #: [phone] Exam Date: 12/21/20081842 FAX #: [phone] Reason: 36WK IUP SWELLING RLE EXAMS: CPT CODE: [id number] DOP VEIN VERNON 98563 Bilateral lower extremity venous Doppler:HISTORY: , right lower extremity swelling. FINDINGS: Real-time duplex and color Doppler sonog jeni was completed in the deep venous system of both lower extremities. All of the veins that wereevaluated show normal flow signal and venous compression. There is no intraluminal thrombus in either lower extremity. Normal response to augmentation. IMPRESSION: Negative for bilateral lower extremity DVT. at 1848 Reported and signed by: Blaise Wylie M.D. CC: Joselin Contreras Technologist: Larissa Olivas RDMS(Lily)(OB) Trnscb Date/Time: 12/21/2008 (1847) Maryam Orig Print D/T: S: 12/21/2008 (1848) Probe: PAGE 1 Signed Report
[2022-09-19] MEDS ORDERED: BUPIVACAINE 0.5% PF 10 ML VIAL ONE (08:41)
[2022-09-19] MEDS ORDERED: TDAP (DIPHTH,PERTUSS(ACELL),TET VAC) 0.5 ML VIAL IMVAC ONE (08:42)
--- NOTE | 2022-09-19 09:09 | EDPHYS ---
Physician Documentation [facility] Name: Qasim Resendez Age: 32 yrs Sex: Female : 1990 Arrival Date: 09/19/2022 Time: 08:22 Bed 12 Private MD: ED Physician Lemuel Carmichael HPI: 09/19 08:36 This 32 yrs old Female presents to ER via Ambulatory with complaints of Laceration - jmm finger. 08:36 The patient or guardian reports injury, a laceration. Onset: The symptoms/episode jmm began/occurred acutely, just prior to arrival. Patient cut her left thumb while cooking. Not sure on tetanus immunization. Denies other injury. . Historical: - Allergies: 08:34 No Known Allergies; ss - PMHx: 08:34 Kidney stone; ss - PSHx: 08:34 section; "kidney stone surgery"; Tonsillectomy; ss - Immunization history:: Last tetanus immunization: unknown. - Social history:: Smoking status: Patient reports the use of cigarette tobacco products, denies chronic smoking, but will smoke occasionally. ROS: 08:36 Constitutional: Negative for fever, chills, and weight loss, Cardiovascular: Negative jmm for chest pain, palpitations, and edema, Respiratory: Negative for shortness of breath, cough, wheezing, and pleuritic chest pain. 08:36 MS/extremity: Positive for laceration. 08:36 Skin: Positive for laceration(s). 08:36 All other systems are negative. Exam: 08:36 Constitutional: This is a well developed, well nourished patient who is awake, alert, jmm and in no acute distress. Head/Face: atraumatic. Eyes: EOMI, no conjunctival erythema appreciated ENT: Moist Mucus Membranes Neck: Trachea midline, Supple Chest/axilla: Normal chest wall appearance and motion. Cardiovascular: Regular rate and rhythm. No edema appreciated Respiratory: Normal respirations, no respiratory distress appreciated Abdomen/GI: Non distended Back: Normal ROM 08:36 Musculoskeletal/extremity: FROM appreciated to the left 1st phalanx at the ip joint, < 2 sec dist cap refill, NVI. 08:36 Skin: 1 cm laceration noted to the distal left 1st phalanx. 08:36 Neuro: Orientation: is normal, Mentation: is normal, Memory: is normal. 08:36 Psych: Behavior/mood is pleasant, cooperative. Vital Signs: 08:32 BP 140 / 95; Pulse 72; Resp 16; Temp 98.4(TE); Pulse Ox 100% on R/A; Weight 108.86 kg; ss Height 5 ft. 4 in. (162.56 cm); Pain 6/10; 08:32 Body Mass Index 41.20 (108.86 kg, 162.56 cm) ss MDM: 08:36 Patient medically screened. [facility] 09:07 Data reviewed: vital signs, nurses notes. Counseling: I had a detailed discussion with charles the patient and/or guardian regarding: the historical points, exam findings, and any diagnostic results supporting the discharge/admit diagnosis, the need for outpatient follow up, to return to the emergency department if symptoms worsen or persist or if there are any questions or concerns that arise at home. ED course: Patient given wound infection return precautions. Patient understood and agrees with the plan of care. . Administered Medications: 08:44 Drug: Marcaine (bupivacaine) (0.5 %) 10 ml {Note: adminsitered by PA. Benjie} Volume: 10 ss ml; Route: Infiltration; 09:20 Drug: Boostrix Tdap 0.5 ml Route: IM; Site: right deltoid; 09:31 Follow up: LOT [id number] EXP 06/21/23 Disposition: 09:24 Co-signature as Attending Physician, Lemuel TRUJILLO was immediately available on-site ms3 in the Emergency Department for consultation in the care of the patient. Disposition Summary: 09/19/22 09:08 Discharge Ordered Location: Home [facility] Condition: Stable [facility] Diagnosis - Cutaneous Laceration of the Left Thumb [facility] Followup: [facility] - With: Private Physician - When: 10 - 14 days - Reason: Recheck today's complaints, Continuance of care, Staple/Suture removal, Re-evaluation by your physician Discharge Instructions: - Discharge Summary Sheet [facility] - Laceration Care, Adult [facility] Forms: - Medication Reconciliation Form [facility] - Thank You Letter charles - Antibiotic Education katelynm - Prescription Opioid Use katelyn Signatures: Benjie Mcnamara PA PA jmm Smirch, Shelby, RN RN Lemuel Carmichael DO DO ms3 Corrections: (The following items were deleted from the chart) 08:35 08:34 PMHx: kidney disease; ss ss
--- NOTE | 2022-09-19 09:09 | ER ---
Nurse's Notes [facility] Name: Qasim Resendez Age: 32 yrs Sex: Female : 1990 Arrival Date: 09/19/2022 Time: 08:22 Bed 12 Private MD: Diagnosis: Cutaneous Laceration of the Left Thumb Presentation: 09/19 08:32 Chief complaint: Patient states: Laceration to L thumb that occurred 20 minutes ago ss while cooking. Coronavirus screen: Client denies travel out of the [place] in the last 14 days. Ebola Screen: Patient denies exposure to infectious person. Patient denies travel to an Ebola-affected area in the 21 days before illness onset. Complicating Factors: There are no complicating factors for this patient. Initial Sepsis Screen: Does the patient meet any 2 criteria? No. Patient's initial sepsis screen is negative. Does the patient have a suspected source of infection? No. Patient's initial sepsis screen is negative. Risk Assessment: Do you want to hurt yourself or someone else? Patient reports no desire to harm self or others. Onset of symptoms was September 19, 2022. 08:32 Method Of Arrival: Ambulatory ss 08:32 Acuity: ELÍAS 4 ss Historical: - Allergies: 08:34 No Known Allergies; ss - PMHx: 08:34 Kidney stone; ss - PSHx: 08:34 section; "kidney stone surgery"; Tonsillectomy; ss - Immunization history:: Last tetanus immunization: unknown. - Social history:: Smoking status: Patient reports the use of cigarette tobacco products, denies chronic smoking, but will smoke occasionally. Screenin:02 Abuse screen: Denies threats or abuse. Denies injuries from another. Nutritional ss screening: No deficits noted. Tuberculosis screening: Never had TB. Assessment: 08:32 General: Appears in no apparent distress. Behavior is calm, cooperative. Neuro: Level ss of Consciousness is awake, alert, obeys commands. Cardiovascular: Pulses are palpable in right radial artery and left radial artery. Respiratory: Airway is patent Respiratory effort is even, unlabored. Derm: Skin is pink, warm \\T\\ dry. Musculoskeletal: Circulation, motion, and sensation intact. Capillary refill < 3 seconds, is brisk, in bilateral fingers. Swelling. Injury Description: Laceration sustained to palmar aspect of distal phalanx of left thumb. 09:02 Reassessment: cleansed laceration with Hibiclens and saline. Pt tolerated well, states ss that she cant feel anything after digital block. VIRGIE Waldrop at bedside to suture. 09:32 Reassessment: VIS form given. Vital Signs: 08:32 BP 140 / 95; Pulse 72; Resp 16; Temp 98.4(TE); Pulse Ox 100% on R/A; Weight 108.86 kg; ss Height 5 ft. 4 in. (162.56 cm); Pain 6/10; 08:32 Body Mass Index 41.20 (108.86 kg, 162.56 cm) ED Course: 08:22 Patient arrived in ED. as 08:22 Benjie Mcnamara PA is PHCP. [facility] 08:23 Lemuel Carmichael DO is Attending Physician. [facility] 08:34 Triage completed. 08:34 Arm band placed on right wrist. 09:02 Patient has correct armband on for positive identification. 09:30 Ellie Gonsalez, RN is Primary Nurse. 09:31 Assist provider with laceration repair on palmar aspect of distal phalanx of left thumb ss that was 2.5 cm. or less using Steri-strips. Set up tray. Performed by Benjie GARVIN Dressed with band aid, Patient tolerated well. Patient did not have IV access during this emergency room visit. Administered Medications: 08:44 Drug: Marcaine (bupivacaine) (0.5 %) 10 ml {Note: adminsitered by VIRGIE Waldrop.} Volume: 10 ss ml; Route: Infiltration; 09:20 Drug: Boostrix Tdap 0.5 ml Route: IM; Site: right deltoid; 09:31 Follow up: LOT [id number] EXP 06/21/23 Medication: 09:02 VIS not applicable for this client. Intake: Outcome: :08 Discharge ordered by . [facility] 09:32 Discharged to home ambulatory. 09:32 Condition: good 09:32 Discharge instructions given to patient, Instructed on discharge instructions, follow up and referral plans. Demonstrated understanding of instructions, follow-up care, wound care. 09:32 Patient left the ED. Signatures: Benjie Mcnamara PA PA jmm Martinez, Amelia as Ellie Gonsalez, RN RN ss Corrections: (The following items were deleted from the chart) 08:35 08:34 PMHx: kidney disease; ss
[2022-09-19 09:38] VITALS: BP 140/95; TEMP 98.4; O2SAT 100
== END 2022-09-19 09:32 | disposition home or self-care (01) ==
LOC: ER 08:21
PROC: 0JQK0ZZ Repair Left Hand Subcutaneous Tissue and Fascia, Open Approach (ICD-10-PCS; principal; 2022-09-19)
DX: S61.012A Laceration without foreign body of left thumb without damage to nail, initial encounter (principal)
CPT/HCPCS: 96372; 99283

== ENCOUNTER 2023-03-27 01:45 | Emergency (ER) | payer SELFPAY ==
--- OUTSIDE RECORDS SUMMARY | 2023-03-27 01:50 | XMS REPORT | Continuity of Care Document ---
:1990 Author Organization [facility] t Address [address] [place] [address] Care Team Providers Name Role Phone Asked, No Pcp Primary Care Physician Unavailable Eugenio RDZ, David Attending Clinician Ashley Redd MD Attending Clinician [phone] Beltran Small MD Attending Clinician [phone] Isidro RDZ, Abimbola Paige Attending Clinician Yony Vasques MD Attending Clinician Regina Ruiz Attending Clinician Unavailable Isabel Craig DO Attending Clinician [phone] Rosalind Cueto MD Attending Clinician Brooks Boo MD Attending Clinician [phone] Brooks Toribio Attending Clinician Unavailable Andi Mojica MD Attending Clinician Torrey Javed Attending Clinician Unavailable QUENTIN BARAJAS Attending Clinician Unavailable MD KENNA LOPEZ Attending Clinician Unavailable ANDI LOPEZ Attending Clinician Unavailable DO BELTRAN SHEPHERD Attending Clinician Unavailable BELTRAN SHEPHERD Attending Clinician Unavailable KIMBERLY CARROLL Attending Clinician Unavailable DANIELA BECKER Attending Clinician Unavailable Physician, No Primary or Family Admitting Clinician UnavailQUENTIN Talavera Admitting Clinician Unavailable MD KENNA LOPEZ Admitting Clinician Unavailable MALLY VASQUES Admitting Clinician Unavailable Payers Payer Name Policy Type Policy Number Effective Date Expiration Date S ource Problems Condition Condition Condition Status Onset Resolution Last Treating Co mments Source Name Details Category Date Date Treatment Clinician Date Symptomati Symptomati Disease Active 2020-0 M [facility] c [facility]ithi cholelithi 00:00: Ho spita asis asis 00 l Allergies, Adverse Reactions, Alerts Allergy Allergy Status Severity Reaction(s) Onset Inactive Treating Comm ents Source Name Type Date Date Clinician No Known DA Active U 2020-0 [facility]ie 7-10 Clear s 00:00: [facility] No Known DA Active U 2020-0 [facility] Allergie 7-10 Clear s 00:00: [facility] No Known DA Active U 2020-0 [facility] Allergie 1-24 Clear s 00:00: [facility] No Known DA Active U 2019-0 [facility] Allergie 5-07 Clear s 00:00: [facility] No Known DA Active U 2019-0 [facility] Allergie 3-20 Clear s 00:00: [facility] No Known DA Active U 2019-0 [facility] Allergie 2-13 Clear s 00:00: [facility] No Known DA Active U 2017-1 [facility] Allergie 1-27 Clear s 00:00: [facility] No Known DA Active U 2009-0 [facility] Contrast 3-26 [place] Allergie 00:00: e s 00 [facility] No Known DA Active U 2009-0 [facility] Drug 3-26 [place] Allergie 00:00: e s 00 [facility] No Known DA Active U 2009-0 [facility] Food 3-26 [place] Allergie 00:00: e s 00 [facility] No Known DA Active U 2009-0 [facility] Other 3-26 [place] Allergie 00:00: e s 00 [facility] No Known DA Active U 2008-1 [facility] Drug 2-09 [place] [facility] No [facility] DA Active U 2007-09 [facility] Drug 11-06 [place] [facility] Family History Family Member Diagnosis Comments Start Date Stop Date Source Natural father Hypertension [facility] Natural father Stroke [facility] Natural mother Cancer [facility] Natural mother Hypertension [facility] Paternal grandmother Diabetes [facility] Paternal grandmother Hypertension [facility] Paternal grandmother Stroke [facility] Social History Social Habit Start Date Stop Date Quantity Comments Source Gender identity [facility] History of tobacco Cigarette Smoker [facility] Alcohol intake 2023-03-11 2023-03-11 Current [facility] 00:00:00 00:00:00 non-drinker of Hospital alcohol (finding) History of Social 2023-03-11 2023-03-[address] function 00:00:00 00:00:00 Hospital Tobacco use and 2022-01-02 2022-01-02 Smokeless [facility] exposure 00:00:00 00:00:00 tobacco non-user Hospital Sex Assigned At [birth year] [facility] 00:00:00 00:00:00 Hospital Smoking Status Start Date Stop Date Source Ex-smoker 2022-01-02 00:00:00 2022-01-02 00:00:00 [facility] Medications Ordered Filled Start Stop Current Ordering Indication Dosage Frequency Signature Comments Components Source Medication Medication Date Date Medication? Clinician (SIG) Name Name ibuprofen Yes 800mg Q8H Take 1 Metho di (ADVIL) 800 6-[address] MG tablet 00:00: (800 mg Hospi ta 00 total) by l mouth every 8 (eight) hours as needed for mild pain. methylPREDN 2022- follow Met hodi ISolone 14 -[address] (MEDROL 00:00: 04:59 directions Hos rain DOSEPAK) 4 00 :00 l mg tablet ibuprofen Yes 600mg Q8H Take 1 Metho di (ADVIL) 600 4-[address] MG tablet 00:00: (600 mg Hospi ta 00 total) by l mouth every 8 (eight) hours as needed for mild pain. traMADoL Yes [id number] 50mg Q8H Take 1 Method i (ULTRAM) 50 4-05 tablet (50 st mg tablet 00:00: mg total) Hos rain 00 by mouth l every 8 (eight) hours as needed for moderate pain .acute pain. amoxicillin 2022- No 1{tbl} Q.5D Take 1 M ethodi -pot 12-31-[address] clavulanate 00:00: 04:59 mouth 2 Ho spita (Augmentin) 00 :00 (two) l 875-125 mg times a per tablet day for 7 days. ibuprofen Yes 600mg Q6H Take 1 Metho di (ADVIL) 600 3-[address] MG tablet 00:00: (600 mg Hospi ta 00 total) by l mouth every 6 (six) hours as needed for mild pain. methocarbam 2022- No 500mg Q.5D Take 1 Me thodi oL 12-01 03-[address] (ROBAXIN) 00:00: 05:59 (500 mg Hosp kerry 500 MG 00 :00 total) by l tablet mouth 2 (two) times a day for 5 days. predniSONE 2022- No 40mg QD Take 4 Meth janelle (DELTASONE) 12-01 03-[address] 10 mg 00:00: 05:59 (40 mg Hospita tablet 00 :00 total) by l mouth daily for 4 days. ondansetron 2021- No 4mg Q8H Take 1 Met hodi ODT 9-26 10-02 tablet (4 st (ZOFRAN-ODT 00:00: 04:59 mg total) Hospita ) 4 MG 00 :00 by mouth l disintegrat every 8 ing tablet (eight) hours as needed for nausea or vomiting for up to 5 days. ondansetron 2021-0 2021- No 4mg Q8H Take 1 Met hodi ODT 9-26 10-02 tablet (4 st (ZOFRAN-ODT 00:00: 04:59 mg total) Hospita ) 4 MG 00 :00 by mouth l disintegrat every 8 ing tablet (eight) hours as needed for nausea or vomiting for up to 5 days. ondansetron 2021-0 2021- No 4mg Q8H Take 1 Met hodi ODT 9-26 10-02 tablet (4 st (ZOFRAN-ODT 00:00: 04:59 mg total) Hospita ) 4 MG 00 :00 by mouth l disintegrat every 8 ing tablet (eight) hours as needed for nausea or vomiting for up to 5 days. butalbital- 2021- No 1{tbl} Q6H Take 1 M ethodi acetaminoph 9- 09-[address] en-caff 00:00: 04:59 mouth Hospita (Esgic) 00 :00 every 6 l 50-325-40 (six) mg per hours as tablet needed for headaches for up to 3 days. butalbital- 2021-2021- No 1{tbl} Q6H Take 1 M ethodi acetaminoph 9- 09-[address] en-caff 00:00: 04:59 mouth Hospita (Esgic) 00 :00 every 6 l 50-325-40 (six) mg per hours as tablet needed for headaches for up to 3 days. butalbital- 2021-2021- No 1{tbl} Q6H Take 1 M ethodi acetaminoph 9- 09-[address] en-caff 00:00: 04:59 mouth Hospita (Esgic) 00 :00 every 6 l 50-325-40 (six) mg per hours as tablet needed for headaches for up to 3 days. metoclopram 2021-2021- No 10mg Q8H Take 1 Met hodi jessica 8-17 08-25 tablet (10 st (REGLAN) 10 00:00: 04:59 mg total) Hospita MG tablet 00 :00 by mouth l every 8 (eight) hours as needed (headache) for up to 7 days. metoclopram 2022-0 2022- No 10mg Q8H Take 1 Met hodi jessica 8-17 08-25 tablet (10 st (REGLAN) 10 00:00: 04:59 mg total) Hospita MG tablet 00 :00 by mouth l every 8 (eight) hours as needed (headache) for up to 7 days. metoclopram 2021-0 2022- No 10mg Q8H Take 1 Met hodi jessica 8-17 08-25 tablet (10 st (REGLAN) 10 00:00: 04:59 mg total) Hospita MG tablet 00 :00 by mouth l every 8 (eight) hours as needed (headache) for up to 7 days. ondansetron 2-0 2022- No 4mg Q12H Take 1 Met hodi (ZOFRAN) 4 03-17- tablet (4 st MG tablet 00:00: 04:59 mg total) Ho spita 00 :00 by mouth l every 12 (twelve) hours as needed for nausea for up to 30 days. ondansetron 2022-0 2022- No 4mg Q12H Take 1 Met hodi (ZOFRAN) 4 03-17- tablet (4 st MG tablet 00:00: 04:59 mg total) Ho spita 00 :00 by mouth l every 12 (twelve) hours as needed for nausea for up to 30 days. ondansetron 2021-0 2- No 4mg Q12H Take 1 Met hodi (ZOFRAN) 4 03-17- tablet (4 st MG tablet 00:00: 04:59 mg total) Ho spita 00 :00 by mouth l every 12 (twelve) hours as needed for nausea for up to 30 days. levoFLOXaci 2021-0 2021- No 750mg QD Take 1 Me thodi n 03-[address] (Levaquin) 00:00: 04:59 (750 mg Hos rain 750 MG 00 :00 total) by l tablet mouth daily for 5 days. acetaminoph 2021-2021- [place] [id number] 5mL Q6H Take 5 mL Methodi en with 03-[address] codeine 00:00: 04:59 every 6 Hospit a (acetaminop 00 :00 (six) l hen-codeine hours as ) 120-12 needed for mg/5 mL moderate solution pain or severe pain for up to 5 days .acute pain. levoFLOXaci 2021-0 2- No 750mg QD Take 1 Me thodi n -17 03- tablet st (Levaquin) 00:00: 04:59 (750 mg Hos rain 750 MG 00 :00 total) by l tablet mouth daily for 5 days. acetaminoph 2021-0 2021- [place] [id number] 5mL Q6H Take 5 mL Methodi en with 6-20 06-[address] codeine 00:00: 04:59 every 6 Hospit a (acetaminop 00 :00 (six) l hen-codeine hours as ) 120-12 needed for mg/5 mL moderate solution pain or severe pain for up to 5 days .acute pain. benzonatate 0 Yes 100mg Q.21317024 Take 1 Methodi (TESSALON) 6-[id number] 100 MG 00:00: 3D (100 mg Hospita capsule 00 total) by l mouth 3 (three) times a day as needed for cough. benzonatate 2021-0 Yes 100mg Q.47859526 Take 1 Methodi (TESSALON) 6-[id number] 100 MG 00:00: 3D (100 mg Hospita capsule 00 total) by l mouth 3 (three) times a day as needed for cough. benzonatate 0 Yes 100mg Q.24050684 Take 1 Methodi (TESSALON) 6-[id number] 100 MG 00:00: 3D (100 mg Hospita capsule 00 total) by l mouth 3 (three) times a day as needed for cough. albuterol 2021- No 2{puff} Q4H Inhale 2 Methodi (PROAIR 6 07-[address] HFA) 90 00:00: 04:59 every 4 Hospit a mcg/actuati 00 :00 (four) l on inhaler hours as needed for wheezing or shortness of breath for up to 30 days. albuterol 0 2021- No 2{puff} Q4H Inhale 2 Methodi (PROAIR 03-03 07-[address] HFA) 90 00:00: 04:59 every 4 Hospit a mcg/actuati 00 :00 (four) l on inhaler hours as needed for wheezing or shortness of breath for up to 30 days. albuterol 2021- No 2{puff} Q4H Inhale 2 Methodi (PROAIR 6 07-[address] HFA) 90 00:00: 04:59 every 4 Hospit a mcg/actuati 00 :00 (four) l on inhaler hours as needed for wheezing or shortness of breath for up to 30 days. amoxicillin 2021- No 1{tbl} Q12H Take 1 M ethodi -pot 2-28 03-[address] clavulanate 00:00: 05:59 mouth Hosp [facility] (AUGMENTIN) 00 :00 every 12 l 875-125 mg (twelve) per tablet hours for 7 days. amoxicillin 2021- No 1{tbl} Q12H Take 1 M ethodi -pot 2-28 03-[address] clavulanate 00:00: 05:59 mouth Hosp [facility] (AUGMENTIN) 00 :00 every 12 l 875-125 mg (twelve) per tablet hours for 7 days. traMADoL No 50mg Q8H Take 1 Metho di (ULTRAM) 50 2- 03-04 tablet (50 s t mg tablet 00:00: 05:59 mg total) Ho spita 00 :00 by mouth l every 8 (eight) hours as needed for moderate pain for up to 3 [place] [id number] 50mg Q8H Take 1 Metho di (ULTRAM) 50 - 03-04 tablet (50 s t mg tablet 00:00: 05:59 mg total) Ho spita 00 :00 by mouth l every 8 (eight) hours as needed for moderate pain for up to 3 days .acute pain. Vital Signs Vital Name Observation Time Observation Value Comments Source Body temperature 2023-03-11 15:18:00 36.83 Jerrica [facility] Systolic blood 2023-03-11 15:16:00 141 mm[Hg] [facility] pressure Diastolic blood 2023-03-11 15:16:00 82 mm[Hg] [facility] pressure Heart rate 2023-03-11 15:16:00 72 /min [facility] Respiratory rate 2023-03-11 15:16:00 18 /min [facility] Body height 2023-03-11 15:16:00 162.6 cm [facility] Body weight 2023-03-11 15:16:00 104 kg [facility] BMI 2023-03-11 15:16:00 39.36 kg/m2 [facility] Oxygen saturation in 2023-03-11 15:16:00 94 /min [facility] Arterial blood by Pulse oximetry Systolic blood 2022-06-24 02:34:48 139 mm[Hg] [facility] pressure Diastolic blood 2022-06-24 02:34:48 89 mm[Hg] [facility] pressure Heart rate 2022-06-24 02:34:48 79 /min [facility] Body temperature 2022-06-24 02:34:48 36.22 Jerrica [facility] Respiratory rate 2022-06-24 02:34:48 20 /min [facility] Oxygen saturation in 2022-06-24 02:34:48 99 /min [facility] Arterial blood by Pulse oximetry Body height 2022-06-24 00:39:00 162.6 cm [facility] Body weight 2022-06-24 00:39:00 113.399 kg [facility] BMI 2022-06-24 00:39:00 42.91 kg/m2 [facility] Procedures Procedure Date / Time Performing Clinician Source Performed CBC WITH PLATELET AND 2023-03-11 16:06[facility] COM[facility]HENSIVE METABOLIC 2023-03-11 16:06:00 [facility] PANEL TROPONIN T 2023-03-11 16:06:00 [facility] NT-PROBNP 2023-03-11 16:06:00 [facility] HCG QUALITATIVE, SERUM 2023-03-11 16:06:00 [facility] SCREEN ESTIMATED GFR 2023-03-11 16:06:00 [facility] VW PORTABLE 2023-03-11 [facility] 2023-03-11 15:24:30 [facility] URINE CULTURE 2022-12-01 20:20:00 Andi Lopez [facility] HCG QUALITATIVE, URINE 2022-12-01 20:20:00 Andi Lopez [facility] SCREEN URINALYSIS SCREEN AND 2022-12-01 20:20:00 [facility] WITH REFLEX TO CULTURE CT HEAD WO CONTRAST 2022-06-24 02:05:05 Isidro [facility] CT CERVICAL SPINE WO 2022-06-24 02:04:53 [facility] CONTRAST ED REFERRAL TO [facility] 2022-05-14 13:11:51 Yony Vasques [facility] SYNAGOGUE PHYSICIAN ORGANIZATION (PCP) ED REFERRAL TO [facility] 2022-03-17 [facility]PCP[facility] ECG 12-LEAD 2022-03-17 05:38:10 [facility] spital Vitaliy ECG ED PRELIMINARY 2022-03-17 04:44:21 [facility] INTERPRETATION Vitaliy HCG QUALITATIVE, URINE 2022-03-17 03:49:00 GustaboAdolfo [facility] SCREEN XR CHEST 2 VW 2022-03-17 03:46[facility] A [facility]REP, RAPID 2022-03-17 03:32:00 [facility] ANTIGEN Vitaliy INFLUENZA ANTIGEN 2022-03-17 03:32:00 [facility] Vitaliy RESPIRATORY PATHOGEN 2022-03-17 03:32:00 [facility] PANEL WITH COVID-19 Vitaliy RT-PCR STREP SCREEN CULTURE 2022-03-17 03:32:00 [facility] Vitaliy XR CHEST 2 VW 2022-03-03 13:27:46 [facility] INFLUENZA ANTIGEN 2022-03-03 13:02:00 [facility] RESPIRATORY PATHOGEN 2022-03-03 13:02:00 [facility] PANEL WITH COVID-19 RT-PCR ECG ED PRELIMINARY 2022-03-03 12:53:04 Rosalind Cueto [facility] INTERPRETATION ECG 12-LEAD 2022-03-03 12:42:43 [facility] Plan of Care Planned Activity Planned Date Details Comments Source Future Scheduled 2023-03-27 Hepatitis C screening [facility] Test 01:47:07 (procedure) [code = 027451281] Future Scheduled 2023-03-27 [facility] Test 01:47:07 malignant neoplasm of cervix (procedure) [code = 143699898] Future Scheduled 2023-03-27 COVID-19 VACCINE (2 - [facility] Test 01:47:07 Pfizer series) [code = COVID-19 VACCINE (2 - Pfizer series)] Future Scheduled 2023-03-27 [facility]ZA [facility]ACCINE [facility] Test 01:47:07 [code = INFLUENZA VACCINE] Future Scheduled 2022-09-18 Pneumococcal Vaccine: [facility] Test 14:43:59 Pediatrics (0 to 5 Years) and At-Risk Patients (6 to 64 Years) (1 - PCV) [code = Pneumococcal Vaccine: Pediatrics (0 to 5 Years) and At-Risk Patients (6 to 64 Years) (1 - PCV)] Future Scheduled 2022-09-18 Hepatitis C screening [facility] Test 14:43:59 (procedure) [code = 658401605] Future Scheduled 2022-09-18 [facility] Test 14:43:59 malignant neoplasm of cervix (procedure) [code = 283155816] Future Scheduled 2022-09-18 COVID-19 VACCINE (2 - [facility] Test 14:43:59 Pfizer series) [code = COVID-19 VACCINE (2 - Pfizer series)] Future Scheduled 2022-09-18 INFLUENZA VACCINE Method [facility] Test 14:43:59 [code = INFLUENZA VACCINE] Future Scheduled 2022-07-31 HEPATITIS B VACCINES Met [facility] Test 16:34:59 (1 of 3 - 3-dose series) [code = HEPATITIS B VACCINES (1 of 3 - 3-dose series)] Future Scheduled 2022-07-31 Pneumococcal Vaccine: [facility] Test 16:34:59 Pediatrics (0 to 5 Years) and At-Risk Patients (6 to 64 Years) (1 - PCV) [code = Pneumococcal Vaccine: Pediatrics (0 to 5 Years) and At-Risk Patients (6 to 64 Years) (1 - PCV)] Future Scheduled 2022-07-31 Hepatitis C screening [facility] Test 16:34:59 (procedure) [code = 842293697] Future Scheduled 2022-07-31 [facility] Test 16:34:59 malignant neoplasm of cervix (procedure) [code = 870413532] Future Scheduled 2022-07-31 COVID-19 VACCINE (2 - Me [facility] Test 16:34:59 Pfizer series) [code = COVID-19 VACCINE (2 - Pfizer series)] Future Scheduled 2022-07-31 INFLUENZA VACCINE Method [facility] Test 16:34:59 [code = INFLUENZA VACCINE] Encounters Start End Encounter Admission Attending Care Care Encounter Source Date/Time Date/Time Type Type Clinicians Facility Department ID 2019-10-21 Inpatient [facility] [id number] [facility] 19:27:00 60 [facility] 2023-03-11 2023-03-11 Emergency David Ruiz 1.2.840.1 [id number] Methodi 10:05:00 12:06:[address] 3.430.2.7 Hospit a .3.964267 l .8 2023-03-11 2023-03-11 Emergency DAVID RUIZ [facility] [id number] [place] 00:00:00 00:00:[address] 2022-12-31 2022-12-31 Emergency Gemthomasani, 1.2.840.1 [id number] Methodi 12:48:00 15:01:00 Ashley Rodas [address]48.1.[address] 3.430.2.7 Hospit a .3.270236 l .8 2022-12-31 2022-12-31 [facility] [id number] [place] 00:00:00 00:00:00 ASHLEY [address] 2022-12-31 2022-12-31 Travel 1.2.840.1 1.2.421.299 [id number] Methodi 00:00:00 00:00:[address] 3.430.2.7 0.2.7.3.698 [facility] .[facility].337726 084.8 l .8 2022-12-01 2022-12-01 Emergency Emmett, 1.2.840.1 [id number] Methodi 14:02:00 16:47:[address] [place] 3.430.2.7 Hospi ta .3.475115 l .8 2022-12-01 2022-12-01 Emergency SMALL, [facility] [id number] [place] [address] 00:00:00 00:00:00 BELTRAN [address] 2022-12-01 2022-12-01 Travel 1.2.840.1 1.2.926.162 [id number] Methodi 00:00:00 00:00:[address] 3.430.2.7 0.2.7.3.698 Ho spita .3.042401 084.8 l .8 2022-06-23 2022-06-24 Emergency Isidro, 1.2.840.1 [id number] Methodi 20:41:00 06:17:00 Abimbola H [address]91.1.[address] 3.430.2.7 Hospit a .3.132603 l .8 2022-06-23 2022-06-24 Emergency Isidro, 1.2.840.1 [id number] Methodi 20:41:00 06:17:00 Abimbola H 45464.1.[address] 3.430.2.7 Hospit a .3.524995 l .8 2022-06-23 2022-06-23 Travel 1.2.840.1 1.2.542.212 [id number] [id number] Methodi 00:00:00 00:00:[address] 3.430.2.7 0.2.7.3.698 Ho spita .3.720936 084.8 l .8 2022-06-23 2022-06-23 Travel 1.2.840.1 1.2.847.114 7543 [id number] Methodi 00:00:00 00:00:[address] 3.430.2.7 0.2.7.3.698 Ho spita .3.187594 084.8 l .8 2022-05-14 2022-05-14 Emergency Vasques, 1.2.840.1 [id number] [id number] Methodi 08:02:00 08:37:00 [place] [address]007.[address] [place] 3.430.2.7 Hospit a .3.534791 l .8 2022-05-14 2022-05-14 Emergency Vasques, 1.2.840.1 [id number] 2100 [id number] Methodi 08:02:00 08:37:00 [facility] [address]60.[address] [place] 3.430.2.7 Hospit a .3.470606 l .8 2022-05-14 2022-05-14 Travel 1.2.840.1 1.2.318.239 1399 [id number] Methodi 00:00:00 00:00:[address] 3.430.2.7 0.2.7.3.698 Ho spita .3.473243 084.8 l .8 2022-05-14 2022-05-14 Travel 1.2.840.1 1.2.548.449 2279 [id number] Methodi 00:00:00 00:00:[address] 3.430.2.7 0.2.7.3.698 Ho spita .3.352757 084.8 l .8 2022-05-05 2022-05-05 Emergency EM Dark, Regina [facility] CHASITY [id number] [facility] 09:09:00 09:40:00 47 [facility] 2022-05-05 2022-05-05 Emergency EM Dark, Regina HCACL HCACL [id number] [facility] 09:09:00 09:40:00 [id number] [facility] 2022-03-16 2022-03-17 Emergency Kendig, 1.2.840.1 [id number] [id number] Methodi 22:26:00 01:14:[address] Mehran 3.430.2.7 Hosp kerry .3.524664 l .8 2022-03-03 2022-03-03 Emergency Adelso 1.2.840.1 [id number] Methodi 07:35:00 09:19:00 Ros[address]endiz [address].1.[address] 3.430.2.7 Hospit a .3.925507 l .8 2022-01-02 2022-01-02 Emergency de Hernandez, 1.2.840.1 [id number] Methodi 17:02:00 18:15:[address] Rhett 3.430.2.7 Hospit a .3.850088 l .8 2022-01-02 2022-01-02 Travel 1.2.840.1 1.2.625.190 5757 [id number] Methodi 00:00:00 00:00:[address] 3.430.2.7 0.2.7.3.698 Ho spita .3.236959 084.8 l .8 2021-12-26 2021-12-26 Emergency [facility] [id number] [facility] 09:46:00 12:31:00 Brooks [id number] [facility] 2021-12-26 2021-12-26 Emergency [id number] [facility] 09:46:00 12:31:00 Brooks 88 [facility] 2021-11-25 2021-11-26 Emergency Edwardo, 1.2.840.1 [id number] 2100 [id number] Methodi 22:58:00 00:58:[address] Ganga 3.430.2.7 Hospit a .3.289910 l .8 2021-04-10 2021-04-10 Emergency EDWARDO, [facility] [id number] [place] [address] 00:00:00 00:00:[address] ANDI [address] 2021-04-05 2021-04-06 Emergency EM Tello, [facility] CHASITY [id number] [facility] 23:38:00 02:26:00 Torrey [id number] [facility] 2021-03-12 2021-03-12 Emergency EARL, [place] [address] [id number] [place] 00:00:00 00:00:00 ISABEL [address] 2021-02-27 2021-02-28 Inpatient JENN, [place] [id number] [place] 00:00:00 00:00:00 QUENTIN [address] 2021-02-16 2021-02-16 Emergency LOPEZ, [place] [address] [id number] 38 [place] 00:00:00 00:00:00 ANDI [address] 2020-12-28 2020-12-28 Emergency ISIDRO, [place] [address] [id number] 558 [place] 00:00:00 00:00:00 ABIMBOLA [address] 2020-07-14 2020-07-14 Emergency EDWARDO, [place] [address] [id number] 48 [place] 00:00:00 00:00:00 ANDI [address] 2020-05-15 2020-05-15 Emergency JOAO, [place] [address] [id number] [place] 00:00:00 00:00:00 BELTRAN [address] 2020-04-28 2020-04-28 Emergency GLEN, [place] [address] [id number] 90 [place] 00:00:00 00:00:00 KIMBERLY [address] 2020-02-18 2020-02-18 Emergency VANDER [place] [address] [id number] 64 [place] 00:00:00 00:00:00 VITALIY, [address] Results Test Description Test Time Test Comments Results Result Comments Source ECG 12 lead 2022-03-26 20:01:10 Test Item Value Reference Range Interpretation Comme nts Ventricular rate (test code = 253) Atrial rate (test code = 255) ND interval (test code = 266) QRSD interval [...] of 03-MAR-2022 07:42,-[facility] found[facility] [id number] 20:01:10 Test Item Value Reference Range Interpretation Comments Ventricular rate (test code = 253) Atrial rate (test code = 255) ND interval (test code = 266) QRSD interval [...] of 03-MAR-2022 07:42,-No significant change was found- [facility] [id number] 11:15:00 Test Item Value Reference Range Interpretation Comments Strep screen No beta hemolytic Specimen culture Streptococci InformationSpec imen isolate (test isolated Source: Throat Specimen code = 547-0) Site: Not othe rwise specified [facility] [id number] 11:15:00 Test Item Value Reference Range Interpretation Comments Strep screen No beta hemolytic Specimen culture Streptococci InformationSpec imen isolate (test isolated Source: Throat Specimen code = 547-0) Site[facility] specified [facility]- XR WRIST 3 + V [id number] 00:00:00 [facility] LAKEName: NNEKA SHANNONJEANETTE BETI : 1990 Sex: F FAX: Winnie Martinez [phone] Tollhouse: St: REG Name: REYNA EARLY [facility] : 1990 Age/S: 31/F [address] [place] [address] Unit #: [id number] Loc: [place] [address] Phys: Winnie Begum Acct: [id number] Dis Date: Status: REG ER PHONE #: [phone] Exam Date: 12/26/2021 1015 FAX #: [phone] Reason: wrist pain EXAMS: CPT CODE: [id number] XR WRIST 3 + V LT 69066 PROCEDURE INFORMATION: Exam: XR Left Wrist Exam [...] is further concern, follow-up radiographs, CT or MRI may be obtained for complete assessment. IMPRESSION: Normal radiographs. Electronically Signedby Tavia Watkins on 12/26/2021 at 1120 Reported and signed by: Kendrick Watkins M.D.CC: Winnie Begum Technologist: RT Olivia(Ronit) Trncamryn Date/Time/By: 12/26/2021 (112) : By: Jase Orig Print D/T: S: 12/26/2021 (1121) PAGE 1 Signed Report- XR CHEST 1 [id number] 00:48:00 [facility] JIGNESHName: REYNA EARLY : 1990 Sex: F FAX: Torrey Javed MD [phone] [place]oll[place]: St: REG FAX: Anca Smyth APR [phone] -- Name: REYNA EARLY [facility] Amari Willson : 1990 Age/S: 30/F [address] [place] [address] Unit #: [id number] Loc: [place] [address] Phys: Anca Smyth Acct: [id number] Dis Date: Status: REG ER PHONE #: [phone] Exam Date: 04/06/20212 FAX #: [phone] Reason: cough EXAMS: CPT CODE: [id number] XR CHEST 1 V 80886 Study: - XR CHEST 1 V 04/06/2021 12:21 AM Patient Name: REYNA EARLY MR: [id number] : 1990; Age: 30 years y/o Female [...] M.D. CC: Torrey Javed MD; Anca TRIPATHI [facility] Technologist: RT Magalie(Ronit) Trnscrd Date/Time/By: 04/06/2021 (47) : By: [email or web address] Orig Print D/T: S: 04/06/2021 (005) PAGE 1 Signed Report Coronavirus 2018 nCoV [id number] 00:35:00 Test Item Value Reference Range Interpretation Comments Coronavirus 2018 NEGATIVE Negative Negative re sults should be nCoV Bedside (test treated a s presumptive and, code = ifinconsistent with [id number]) clinical signs and symptoms or necessaryfor patient management, nancy uld be tested with an alternativemole cular assay. Negative result s do not preclude DMWS-KpC-4syusp tion and should not be u sed as the sole basis forp atient management deci sions. Negative result s should beconsidered in the context of a patient's recent exposures,histo ry, presence of clinical sig ns and symptoms consis tentwith COVID-19. 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 healthcare setting (test code = 49487-9) Whether the patient has symptoms related to condition of interest (test code = 44015-5) Patient was hospitalized because of this condition (test code = 93141-6) Whether the patient was admitted to intensive care unit (ICU) for condition of interest (test code = 89951-9) Whether patient resides in a congregate care setting (test code = 81782-2) [facility] RNA [Presence] in Respiratory specimen by KEENAN with probe [id number] 01:13:01 Test Item Value Reference Range Interpretation Comments SARS-CoV-2 (COVID-19) RNA Not detected Not-Detected [Presence] in Respiratory specimen by KEENAN with probe detection (test code = 43290-2) [facility]ST 2 [id number] 20:09:00 Name: REYNA EARLY [facility] : 1990 Age/S:29 /F [address] [facility] Unit#:[id number] Loc: [place] [address] Phys: Enrico Davies MD Dis Date: PHONE #: [phone] Status: REG ER FAX #: [phone] Exam Date: 10/21/2019 Reason:cough EXAMS: CPT CODE: [id number] XR CHEST 2 V 76464 REASON FOR EXAM: cough Exam Order Date: 10/21/2019 7:36 PM Ordering: Enrico Davies MD Attending:Enrico Davies MD Location: PROCEDURE: - XR CHEST 2 V COMPARISON: 12/15/2018 FINDINGS: PA and lateral views of the chest show patchy airspace opacityof the bases. No evidence of effusion. The heart size is within normal limits. Pulmonary vasculatures are unremarkable. The osseous structures are grossly intact. IMPRESSION: Patchy atelectasis at the bases at 2008 Reported and signed by: Jagdish Guaman M.D. CC: Enrico Davies MD Technologist: SALMA MARCIAL RT(R),RDMS,CT Trnscrpt Data: 10/21/2019 (2008) t.DAWOOD Orig Print D/T: S: 10/21/2019 (2011) PAGE 1 Signed ReportCAPILLARY BLOOD GASES 2019-03-07 18:20:00 Test Item Value Reference Range Interpretation Comments TOTAL CO2 CONTENT TEST NOT 24.0-30.0 N Previously reported (test code = TCO2) PERFORMED MMOL/L resul t: 29.0 MMOL/LEdited by : THOMAS on 02/01/19:1808: TCO2 previously repo rted as: 29.0 MMOL/L CAPILLARY BLOOD TEST NOT 7.33-7.45 Previously r eported GAS PH (test code PERFORMED result: 7. 22 Edited = PHC) by: THOMAS o n 02/01/19:180602/01/191806: CBG PH previously reported as: 7. 22 [...] dited code = FIO2C) by: THOMAS on 02/01/19:1808: FIO2 previously repo rted as: 21 % CAPILLARY BLOOD TEST NOT Previously r eported GAS DEL (test code PERFORMED result: I nfantVent = DELC) Edited by: CONSUELO RAYMOND on 02/01/19:1808: DELIVER Y previously repo rted as: InfantVent CAPILLARY BLOOD TEST NOT Performed by GAS PEEP (test PERFORMED cmH2O certified envelope machine operator code = PEEPC) [facility]Previously reported result : [id number] by: [email or web address] on 03/07/19:181903/07/191819: PEEP previously repo rted as: cmH2O Perf ormed by certified envelope machine operator at [facility]Previously reported result : 7 [id number] by: THOMAS on 02/01/19:1808: PEEP previously repo rted as: 7 cmH2O Performed by certified opera tor at [facility] CBG TEMPERATURE TEST NOT Previously r eported (test code = PERFORMED F result: 98.0 FE dited TEMPC) by: THOMAS o n 02/01/19:1808: TEMPC previously repo rted as: 98.0 F CAPILLARY BLOOD TEST NOT Previously r eported GAS SITE (test PERFORMED result: Heel Edited code = SITEC) by: THOMAS on 02/01/19:1808: SITE previously repo rted as: Heel VENOUS BLOOD [id number] 18:19:00 Test Item Value Reference Range Interpretation [...] y PEEP (test code PERFORMED cmH2O certified envelope machine operator at = PEEPV) [facility]Previously reported result : [id number] by: [email or web address] on 03/07/19:181803/07/191818: VBG PEEP previously reported as: cm H2O Performed by certified oper tor [facility]trPreviously reported result : 5 [id number] by: THOMAS on 02/01/19:18102/01/191809: VBG PEEP previously reported as: 5 cmH2O [facility] VENOUS BLOOD GAS TEST NOT [...] rted as: 29 - CT ABD PELVIS [id number] 00:56:00 Name: REYNA EARLY [facility] : 1990 Age/S: 28 / F [address] [place] [address] Unit #: [id number] Loc: [place] [address] Phys: Winnie 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 EXAMS: CPT CODE: [id number] CT ABD PELVIS W/CONT 80902 EXAM: CT, CT ABDOMEN PELVIS W CONTRAST: 02/07/2019, 0039 hours HISTORY: s/p , upper abd pain and fevers. COMPARISON: None available. TECHNIQUE: Helical imaging was performed from diaphragm through the symphysis with coronal and sagittal reconstructions. CT imaging was performed with exposure control parameters to reduce radiation dose. IV CONTRAST: 100 cc Isovue. GI CONTRAST: YES CT Radiation Dose: DLP= 684.96 mGy-cm FINDINGS: LOWER CHEST: The visualized [...] PERITONEUM AND RETROPERITONEUM: No ascites or free air.There is no aortic aneurysm or dissection. Fat-containing umbilical hernia. Mild inflammatory changes in the subcutaneous fat around the umbilicus with trace subcutaneous air probably due to recent procedure. LYMPH NODES: Unremarkable. PELVIS: No pelvic mass or adenopathy. Enlarged uterus. Ovaries are not visualized. BLADDER: Unremarkable. OSSEOUS STRUCTURES: Suboptimally seen bilateral pars defect at L5 with PAGE 1 Signed Report (CONTINUED) Name: REYNA EARLY [facility] [place]: 1990 Age/S: 28 / F [address] [place] [address] Unit #: [id number] Loc: [place] [address] Phys: Winnie Begum [employer]AMP SHADE ASSEMBLER Acct: [id number] Dis Date: Status: REG ER PHONE #: [phone] Exam Date: 02/07/2019 0037 FAX #: [phone] Reason: s/p c- section, upper abd pain and fevers. EXAMS: CPTCODE: [id number] CT ABD PELVIS W/CONT 42225 (Continued) slight anterior listhesis of L5 on S1. Mild d egenerative changes at L5-S1. SOFT TISSUES: Mild bilateral [...] signed by: Jairo Reynolds M.D. CC: Violeta Navarrete; Gabriel Torres MD; Winnie Begum NP Technologist:RT Tigre(R) CTDI: DLP: Trnscb Date/Time: 02/07/2019 (005) [email or web address] Orig Print D/T: S: 02/07/2019 (005) PAGE 2 Signed Report COMPREHENSIVE METABOLIC [id number] 23:40:00 Test Item Value Reference Range Interpretation [...] TOTAL (test code = ALKP) COMPREHENSIVE METABOLIC [id number] 23:36:00 Test Item Value Reference Range Interpretation [...] TOTAL (test code = ALKP) CBC W/AUTO [id number] 23:33:00 Test Item Value Reference Range Interpretation [...] REQUIRED (test NO code = MDIFF) SURGICAL [id number] 08:10:00 RUN DATE: 02/04/19 [facility] *LIVE* PAGE 1 RUN TIME: 0810 Specimen Inquiry RUN USER: INTERFACE --------- ---PATIENT: REYNA EARLY LOC: [facility] U #: [id number] AGE/SX: 28/ ROOM: [facility] RE02/01/19REG DR: Gabriel Torres MD : [birth year] BED: 1 DIS: STATUS: ADM IN TLOC: SPEC #: [id number] RECD: 02/02/19 STATUS: NASIM KARAN #: [id number] [place]: 02/02/[address]: Gabriel Torres MD ENTERED: 02/03/19 SP TYPE: SURG SPEC OTHR DR: Self Referred Erick Carbajal MD, JR, Patrick MDORDERED: GM LEVEL 4 CODES: [id number] - FALLOPIAN TUBE JA8510 - PLACENTA, NOS COPIES TO: Self Referred Gabriel Torres MD [address] [place] [phone] [email or web address] Erick Carbajal MD [address] [address] [email or web address] Roderick Daniel JR, MD [address] [facility] [address] [place] [address] PROCEDURES: GM LEVEL 4 (Incomplete) [...] CONTINUED ON NEXT PAGE RUN DATE: 02/04/19 [facility] *LIVE* PAGE 2 RUN TIME: 0810 Specimen Inquiry RUN USER: INTERFACE SPEC #: [id number] PATIENT: REYNA EARLY #[id number] (Kate nutiffany) GROSS AND MICROSCOPIC GROSS EXAMINATION: Received in [...] 02/04/19 0810 END OF REPORT CBC W/AUTO [id number] 07:37:00 Test Item Value Reference Range Interpretation [...] MDIFF) COMMENTS: POD #1 and #2COMPREHENSIVE METABOLIC [id number] 05:40:00 Test Item Value Reference Range Interpretation [...] code = ALKP) COMMENTS: POD #1CBC W/AUTO [id number] 05:36:00 Test Item Value Reference Range Interpretation [...] MDIFF) COMMENTS: POD #1 and #2VENOUS BLOOD [id number] 18:10:00 Test Item Value Reference Range Interpretation [...] -3.0 mm ol/LEdited by: THOMAS o n 02/01/19:0 0 02/01/191809: HERMAN previ ously reported as: [...] med by certified (test code = PEEPV) envelope machine operator at [facility]trPrevious ly reported result : 5 apQ3MYnymqd by: THOMAS on 02/01/19:181 0 02/01/191809: VBG PEEP previously reported as: 5 cmH2O Performed by ce rtified envelope machine operator at [facility] VENOUS BLOOD GAS TEMP F Previo usly reported (test code = TEMPV) result: 97.6 FEdited by: THOMAS on 02/01/19:1809: TEMPV pre viously reported as: 97 .6 F VENOUS BLOOD GAS SITE Other (test code = SITEV) VENOUS TCO2 (test Previously reported code = TCO2V) result: 29 Gamal lon by: THOMAS on 02/01/19:1809: TCO2V pre viously reported as: 29 CAPILLARY BLOOD [id number] 18:09:00 Test Item Value Reference Range Interpretation [...] d by certified PEEP (test code = envelope machine operator a t [facility] PEEPC) Med CtrPrevious ly reported result : 7 [id number] by: THOMAS on 02/01/19:1808: PEEP prev iously reported as: 7 cmH2O Performed by ce rtified envelope machine operator at [facility] CBG TEMPERATURE (test F Previo usly reported code = TEMPC) result: 98.0 F Edited by: THOMAS on 02/01/19:6791681808: TEMPC pre viously reported as: 98 .0 F CAPILLARY BLOOD GAS Previous ly reported SITE (test code = result: Edgar ballard Edited by: NATASHA) MADHAVDJFuad on 02/01/19:3919541808: SITE prev iously reported as: Edgar ballard CAPILLARY BLOOD [id number] 17:48:00 Test Item Value Reference Range Interpretation [...] d by PEEP (test code = certified envelope machine operator PEEPC) at [facility] CBG TEMPERATURE (test 98.0 F code = TEMPC) CAPILLARY BLOOD GAS Heel SITE (test code = SITEC) VENOUS BLOOD [id number] 14:27:00 Test Item Value Reference Range Interpretation [...] by (test code = PEEPV) certifie d envelope machine operator at [facility] VENOUS BLOOD GAS TEMP 97.6 F (test code = TEMPV) VENOUS BLOOD GAS SITE Other (test code = SITEV) VENOUS TCO2 (test 29 code = TCO2V) CORD ARTERIAL BLOOD [id number] 14:03:00 Test Item Value Reference Range Interpretation [...] O2S/C) 9 % 25-45 L COMPREHENSIVE METABOLIC [id number] 17:24:00 Test Item Value Reference Range Interpretation [...] N TOTAL (test code = ALKP) URIC [id number] 17:24:00 Test Item Value Reference Range Interpretation Comments URIC ACID (test code = URIC) 4.6 mg/dL 2.6-7.2 N LACTIC DEHYDROGENASE(LDH)2019-01-31 17:24:00 Test Item Value Reference Range Interpretation Comments LACTIC DEHYDROGENASE(LDH) (test 154 IUnits/L 84-246 N code = LDH) URINALYSIS [id number] 17:09:00 Test Item Value Reference Range Interpretation [...] MUCU) TRACE /LPF NONE SEEN CBC W/AUTO [id number] 17:04:00 Test Item Value Reference Range Interpretation [...] (test NO code = MDIFF) COMPREHENSIVE METABOLIC [id number] 23:53:00 Test Item Value Reference Range Interpretation [...] N TOTAL (test code = ALKP) URIC [id number] 23:53:00 Test Item Value Reference Range Interpretation Comments URIC ACID (test code = URIC) 4.2 mg/dL 2.6-7.2 N LACTIC DEHYDROGENASE(LDH)2019-01-26 23:53:00 Test Item Value Reference Range Interpretation Comments LACTIC DEHYDROGENASE(LDH) (test 144 IUnits/L 84-246 N code = LDH) DRUGS OF ABUSE SCREEN [id number] 23:45:00 Test Item Value Reference Range Interpretation [...] ne 300 ng/mLPCP phency clidine 25 ng/mL Uncon firmed screening resul ts shouldnot be us ed for non-medical pur poses. AMNISURE (ROM) [id number] 23:43:00 Test Item Value Reference Range Interpretation Comments AMNISURE (ROM) TEST (test NEGATIVE NEGATIVE OP ENED:12/05/2018 code = AMNI) COMPREHENSIVE METABOLIC [id number] 23:39:00 Test Item Value Reference Range Interpretation [...] 20-125 TOTAL (test code = ALKP) URIC [id number] 23:39:00 Test Item Value Reference Range Interpretation Comments URIC ACID (test code = URIC) 4.2 mg/dL 2.6-7.2 N LACTIC DEHYDROGENASE(LDH)2019-01-26 23:39:00 Test Item Value Reference Range Interpretation Comments LACTIC DEHYDROGENASE(LDH) (test IUnits/L 84-246 code = LDH) DRUGS OF ABUSE SCREEN [id number] 23:36:00 Test Item Value Reference Range Interpretation [...] us ed for non-medical pur poses. URINALYSIS [id number] 23:31:00 Test Item Value Reference Range Interpretation [...] MUCU) TRACE /LPF NONE SEEN CBC W/AUTO [id number] 23:26:00 Test Item Value Reference Range Interpretation [...] REQUIRED (test NO code = MDIFF) URINALYSIS [id number] 14:32:00 Test Item Value Reference Range Interpretation [...] MUCU) TRACE /LPF NONE SEEN COMPREHENSIVE METABOLIC [id number] 14:30:00 Test Item Value Reference Range Interpretation [...] N TOTAL (test code = ALKP) URIC [id number] 14:30:00 Test Item Value Reference Range Interpretation Comments URIC ACID (test code = URIC) 4.3 mg/dL 2.6-7.2 N LACTIC DEHYDROGENASE(LDH)2019-01-20 14:30:00 Test Item Value Reference Range Interpretation Comments LACTIC DEHYDROGENASE(LDH) (test 128 IUnits/L 84-246 N code = LDH) COMPREHENSIVE METABOLIC [id number] 14:20:00 Test Item Value Reference Range Interpretation [...] 20-125 TOTAL (test code = ALKP) URIC [id number] 14:20:00 Test Item Value Reference Range Interpretation Comments URIC ACID (test code = URIC) 4.3 mg/dL 2.6-7.2 N LACTIC DEHYDROGENASE(LDH)2019-01-20 14:20:00 Test Item Value Reference Range Interpretation Comments LACTIC DEHYDROGENASE(LDH) (test IUnits/L 84-246 code = LDH) CBC W/AUTO [id number] 14:06:00 Test Item Value Reference Range Interpretation [...] (test NO code = MDIFF) RAPID PLASMA [id number] 12:19:00 Test Item Value Reference Range Interpretation Comments RAPID PLASMA REAGIN (test code = NONREACTIVE NONREACTIVE RPR) AG HEPATITIS B [id number] 12:19:00 Test Item Value Reference Range Interpretation Comments AG HEPATITIS B SURFACE NON REACTIVE INDEX NonReactive (test code = HBSAG) AB HIV 1 12:19:00 Test Item Value Reference Range Interpretation Comments AB HIV 1 2 (test code = NONREACTIVE INDEX NONREACTIVE [id number]) COMPREHENSIVE METABOLIC [id number] 05:49:00 Test Item Value Reference Range Interpretation [...] N TOTAL (test code = ALKP) URIC [id number] 05:49:00 Test Item Value Reference Range Interpretation Comments URIC ACID (test code = URIC) 4.4 mg/dL 2.6-7.2 N LACTIC DEHYDROGENASE(LDH)2019-01-08 05:49:00 Test Item Value Reference Range Interpretation Comments LACTIC DEHYDROGENASE(LDH) (test 110 IUnits/L 84-246 N code = LDH) COMPREHENSIVE METABOLIC [id number] 05:43:00 Test Item Value Reference Range Interpretation [...] 20-125 TOTAL (test code = ALKP) URIC [id number] 05:43:00 Test Item Value Reference Range Interpretation Comments URIC ACID (test code = URIC) 4.4 mg/dL 2.6-7.2 N LACTIC DEHYDROGENASE(LDH)2019-01-08 05:43:00 Test Item Value Reference Range Interpretation Comments LACTIC DEHYDROGENASE(LDH) (test IUnits/L 84-246 code = LDH) URINALYSIS [id number] 05:35:00 Test Item Value Reference Range Interpretation [...] = 1+ /HPF NONE A YEASTUBD) URINALYSIS [id number] 05:33:00 Test Item Value Reference Range Interpretation [...] 1+ /HPF NONE A YEASTUBD) CBC W/AUTO [id number] 05:25:00 Test Item Value Reference Range Interpretation [...] (test code NO = MDIFF) - US [id number] 00:53:00 Name: REYNA EARLY [facility] : 1990 Age/S: 28 / F [address] [place] [address] Unit #: [id number] Loc: [place] [address] Phys: Jayme Christianson MD Acct: [id number] Dis Date: Status: ADM IN PHONE #: [phone] Exam Date: 01/07/2019 0009 FAX #: [phone] Reason: Hard to find FHT EXAMS: CPT CODE: [id number] [place] LTD 49081 EXAM: US, US LTD: 01/07/2019, 2356 hours History: . Vaginal bleeding. Cramping. TECHNIQUE: Sonographic evaluation is performed of the uterus using grayscale, color flow and Doppler imaging using transabdominal approach. COMPARISON: None. FINDINGS: Single live intrauterine gestation is identified . heart rateranges from 139 -144 beats per minute gestational age by LMP is 30 weeks 2 days and REGINA by LMPis 03/16/2019. heart rate is 146 bpm. Placenta is posterior. No evidence of placenta previa. IMPRESSION: 1. Single viable intrauterine gestation with positive cardiac activity. SL: JSYED-H at 0053 Reported and signed by: Jairo Reynolds M.D. CC: Gabriel Torres MD; Jayme Christianson Technologist: Valeria Marr RDMS(A) Trnscb Date/Time: 01/08/2019 (0053) [email or web address].[email or web address] Orig Print D/T: S: 01/08/2019 (0056) Probe: PAGE 1 Signed ReportRAPID PLASMA [id number] 21:20:00 Test Item Value Reference Range Interpretation Comments RAPID PLASMA REAGIN (test code = RPR) NONREACTIVE AG HEPATITIS B [id number] 21:20:00 Test Item Value Reference Range Interpretation Comments AG HEPATITIS B SURFACE NON REACTIVE INDEX NonReactive (test code = HBSAG) AB HIV 1 21:20:00 Test Item Value Reference Range Interpretation Comments AB HIV 1 2 (test code = NONREACTIVE INDEX NONREACTIVE [id number]) RAPID PLASMA [id number] 16:37:00 Test Item Value Reference Range Interpretation Comments RAPID PLASMA REAGIN (test code = RPR) NONREACTIVE AG HEPATITIS B [id number] 16:37:00 Test Item Value Reference Range Interpretation Comments AG HEPATITIS B SURFACE NON REACTIVE INDEX NonReactive (test code = HBSAG) AB HIV 1 16:37:00 Test Item Value Reference Range Interpretation Comments AB HIV 1 2 (test code = TFG44LD) INDEX NONREACTIVE CBC W/AUTO [id number] 16:23:00 Test Item Value Reference Range Interpretation [...] (test NO code = MDIFF) COMPREHENSIVE METABOLIC [id number] 16:19:00 Test Item Value Reference Range Interpretation [...] N TOTAL (test code = ALKP) URINALYSIS [id number] 16:14:00 Test Item Value Reference Range Interpretation [...] = MUCU) TRACE /LPF NONE SEEN URINALYSIS [id number] 13:59:00 Test Item Value Reference Range Interpretation [...] /LPF NONE SEEN - XR CHEST 2 [id number] 11:56:00 FAX: Gabriel Gomez [phone] [place]: St: [facility] FAX: Shanice Rhodes DO Name: REYNA EARLY [facility] : 1990 Age/S: 28/F [address] [place] [address] Unit #: [id number] Loc: [place] [address] Phys: Shanice Rhodes DO Acct: [id number] Dis Date: Status: REG ER PHONE #: [phone] Exam Date: 12/15/2018 1152 FAX #: [phone] Reason: cough EXAMS: CPT CODE: [id number] XR CHEST 2 I17910 CHEST RADIOGRAPHS - PA AND LATERAL: COMPARISON: None CLINICAL HISTORY: cough Cardiomediastinal silhouette is stable in size. Lungs are clear. There is a small focal eventration of the anterior right hemidiaphragm. No vascular congestion or pneumothorax. IMPRESSION: No acute pulmonary abnormality. at 1157 Reported and signed by: Roni Pal M.D. CC: Gabriel Torres MD; Shanice Rhodes DO Technologist: Annie Jenkins RT(R) Trnscrd Date/Time/By: 12/15/2018 (5197) : By: [email or web address] Orig Print D/T: S: 12/15/2018 (6816) PAGE 1 Signed Report- XR CHEST 1 [id number] 22:02:00 FAX: Gabriel Gomez [phone] [place]: St: REG FAX: Zain Andres MD [phone] - Name: NNEKASHANNONJEANETTE [facility] : 1990 Age/S: 28/F [address] [place] [address] Unit #: [id number] Loc:[place] [address] Phys: Zain Harris MD Acct: [id number] Dis Date: Status: REG ER PHONE#: [phone] Exam Date: 12/12/2018 2200 FAX #: [phone] Reason: cough EXAMS: CPT CODE: [id number] XR CHEST 1 V 67343 SINGLE VIEW RADIOGRAPH CHEST INDICATION: cough. TECHNIQUE: [...] S: 12/12/2018 (2204) PAGE 1 Signed ReportURINALYSIS [id number] 15:23:00 Test Item Value Reference Range Interpretation [...] /LPF NONE SEEN DRUGS OF ABUSE SCREEN [id number] 11:29:00 Test Item Value Reference Range Interpretation [...] ed for non-medical pur poses. COMPREHENSIVE METABOLIC [id number] 11:20:00 Test Item Value Reference Range Interpretation [...] TOTAL (test code = ALKP) COMPREHENSIVE METABOLIC [id number] 11:19:00 Test Item Value Reference Range Interpretation [...] code = ALKP) DRUGS OF ABUSE SCREEN [id number] 11:14:00 Test Item Value Reference Range Interpretation [...] us ed for non-medical pur poses. URINALYSIS [id number] 10:58:00 Test Item Value Reference Range Interpretation [...] MUCU) TRACE /LPF NONE SEEN CBC W/AUTO [id number] 10:50:00 Test Item Value Reference Range Interpretation [...] NO code = MDIFF) - US RETROPERITONEAL [id number] 08:56:00 Name: REYNA EARLY : 1990 Age/S: 28 / F [address] [place] [address] Unit#: [id number] Loc: [facility] [address] Phys: La Nena Dong MD Acct: [id number] Dis Date: Status: REG ER PHONE #: [phone] Exam Date: 11/25/2018 0851 FAX #: [phone] Reason: left flank pain EXAMS: CPT CODE: [id number] US RETROPERITONEAL COM [id number] EXAM: US RETROPERITONEAL COMPLETE DATE: 11/25/2018 7:25 [...] Evaluation is limited due to pain. SL: [id number] PAGE 1 SignedReport (CONTINUED) Name: REYNA EARLY : 1990 Age/S: 28 / F [address] [place] [address] Unit #: [id number] Loc: [facility] [address] Phys: La Nena Dong MD Acct: [id number] Dis Date: Status: REG ER PHONE #: [phone] Exam Date: 11/25/2018 0851 FAX #: [phone] Reason: left flank pain EXAMS: CPT CODE: [id number] [facility] [address] (Continued) at 0856 Reported and signed by: Carloz Farrell D.O. CC: Gabriel Torres MD; Marcial Schultz MD; La Nena Dong MD Technologist: LAW Justin(SHIRLEY)(AB) Trndcb Date/Time: 11/25/2018 (0856) [email or web address] Orig Print D/T: S: 11/25/2018 (0859) Probe: PAGE 2 Signed Report- XR CHEST 1 [id number] 19:22:00 FAX: Violeta Marie DO [phone] [place]: St: REG FAX: Gabriel Gomez [phone] --- Name: REYNA EARLY [facility] : 1990 Age/S: 28/F [address] [place] [address] Unit #: [id number] Loc: [address] [address] Phys: Violeta Grijalva DO Acct: [id number] Dis Date: Status: REG ER PHONE #: Exam Date: 11/10/2018 1900 FAX #: [phone] Reason: cough/chest pain EXAMS: CPT CODE: [id number] XR CHEST 1 V 89550 EXAM: Single view portable AP chest. EXAM DATE: 11/10/2018 at 1848 hours CLINICAL HISTORY: Cough, chest pain, COMPARISON: None The image is at low inspiratory volume. Car diomediastinal silhouette is grossly within normal limits. Mild increase in the vascular markings are identified most consistent with the state. No infiltrates or effusions are identified. Visualized osseous structures demonstrate no acute abnormalities. IMPRESSION: No acute cardiopulmonary fi ndings identified. at 1922 Reported and signed by: [...] SEEN QNS NOTIFIED JEAN MCKNIGHT 1819- US [id number] 19:01:00 Name: REYNA EARLY [facility] : 1990 Age/S: 28 / F [address] [place] [address] Unit #: [id number] Loc: [place] [address] Phys: Violeta Grijalva DO Acct: [id number] Dis Date: Status: REG ER PHONE #: [phone] Exam Date: 11/10/2018 1831 FAX #: [phone] Reason: abdominal pain/ chest pain EXAMS: CPT CODE: [id number] LTD [address]7633 Exam: Limited obstetric ultrasound. Exam date: November 10, 2018. CLINICAL HISTORY: Abdominal/chest pain Real-time imaging of the pelvis demonstrates a jose intrauterine in vertex presentation. The cervix appears closed and measures approximately 41 mm. heart rate is 152 bpm. The placenta is posterior grade 1. The exactlocation of the placenta in relation to the internal os was difficult to determine secondary to a low maternal contraction. On the images provided there is no evidence of placenta previa. The amniotic fluid volume appears normal.. IMPRESSION: Jose live intrauterine in vertex presentation. If anatomic survey has not been performed previously I do recommend that this be performed on a nonemergent basis. at 1901 Reported and signed by: Duyen Barajas M.D. CC: Violeta Grijalva DO; Gabriel Torres MD Technologist: Miriam Majano RDMS (AB) (OB) Trnscb Date/Time: 11/10/2018 (1900) Gasper Orig Print D/T: S: 11/10/2018 (1903) Probe: PAGE 1 Signed ReportCOMPREHENSIVE METABOLIC PANEL 2018-11-10 18:39:00 Test Item Value Reference Range Interpretation [...] TOTAL (test code = ALKP) CBC W/AUTO [id number] 18:25:00 Test Item Value Reference Range Interpretation [...] code NO = MDIFF) - DOP VEIN [id number] 18:47:00 Name: REYNA EARLY [facility] : 1990 Age/S: 18 / F [address] [place] [address] Unit #: [id number] Loc: [place] [address] Phys: Joselin Alvarez MD Acct: [id number] Dis Date: Status: UNK PHONE #: [phone] Exam Date: 12/21/2008 1843 FAX #: [phone] Reason: 36WK IUP SWELLING RLE EXAMS: CPT CODE: [id number] DOP VEIN [place] [address] Bilateral lower extremity venous Doppler: HISTORY: , right lower extremity swelling. FINDINGS: Real-time duplex and color Doppler sonogr aphy was completed in the deep venous system [...] Larissa Olivas RDMS(A)(OB) Trnscb Date/Time: 12/21/2008 (1847) KishanETG Orig Print D/T: S: 12/21/2008 (1848) Probe: PAGE 1 Signed Report Notes Date/Time Note Provider Source 2022-05-05 09:30:00-00:00 [facility] ([facility]) EMERGENCY PROVIDER REPORT REPORT#:[id number] REPORT STATUS: Signed DATE:05/05/22 TIME: 929 PATIENT: REYNA EARLY UNIT #: [id number] ROOM/BED: AGE: 31 SEX: F PCP PHYS: No Primary or Family P hysician SERVICE AUTHOR: Winnie Begum CABLE HOOKER * ALL edits or amendments must be made on the [employer] document * Winnie Begum 05/05/2230: HPI-Recheck W/B/S Free Text HPI Notes Free Text HPI Notes 31-year-old female presents to the emergency blane with 3-day history of clear navel discharge. States that drainage is from he r navel. It is not associated fevers, nausea, vomiting, or diarrhea. She denies any exacerbating or relieving factors. General Initial Greet Date/Time 05/05/22 0910 Presentation Chief Complaint Wound check Review of Systems ROS Statements All systems rev neg except as marked. Past Medical History - Adult Stated Complaint BELLY BUTTON LEAKING Allergies Coded Allergies: No Known Allergies (04/06/21) Home Medications Active Scripts KETOROLAC (TORADOL) 10 MG PO Q6H PRN PRN PAIN KETOROLAC (TORADOL) 10 MG PO Q6H PRN PRN PAIN # 20 TABS Prov: 12/26/21 methylPREDNISolone (MEDROL 4 MG DOSEPAK) 4 MG PO ASDIR methylPREDNISolone (MEDROL 4 MG DOSEPAK) 4 MG P O ASDIR #1 PACKET Prov: 04/06/21 D-METHORPHAN HB/P-EPD HCL/BPM (BROMPHENI T-[id number] SYR) 10 ML PO Q4H PRN PRN COUGH D-METHORPHAN HB/P-EPD HCL/BPM (BROMPHENIR-PSEUD OEPHED-DM SYR) 10 ML PO Q4H PRN PRN COUGH #120 ML Prov: 04/06/21 FEXOFENADINE/PSEUDOEPH ER (LIZETH-D 60/120 MG 1 2 HOUR) 1 TAB PO BID FEXOFENADINE/PSEUDOEPH ER (LIZETH-D 60/120 MG 12 HOUR) 1 TAB PO BID #24 TABS Prov: 04/06/21 ALBUTEROL (PROVENTIL HFA 90 MCG/ACT 6.7 GM) 1 PU FF INH RTQ4H ALBUTEROL (PROVENTIL HFA 90 MCG/ACT 6.7 GM) 1 P UFF INH RTQ4H #6.7 GM Prov: 04/06/21 Calculated Suicide Risk (nurs) No risk Review of Nursing Notes Triage notes reviewed Past Medical History: Reports: Hypertension, Kidney disease/stones. Additional Medical History preeclampsia Past Surgical History: Reports: , Tonsillectomy. Drug Use Denies recreational drugs Smoking status for patients 13 years old or olde r: Never Smoker Other Social History Local resident Physical Exam Vital Signs Vital Signs First Documented: Result Date Time Pulse Ox 100 05/05 919 B/P 141/95 05/05 919 B/P Mean 110 05/05 919 O2 Delivery Room air 05/05 919 Temp 36.9 05/05 919 Pulse 92 05/05 919 Resp 17 05/05 919 Last Documented: Result Date Time Pulse Ox 100 05/05 919 B/P 141/95 05/05 919 B/P Mean 110 05/05 919 O2 Delivery Room air 05/05 919 Temp 36.9 05/05 919 Pulse 92 05/05 919 Resp 17 05/05 919 Review of Vital Signs Reviewed Free Text PE Notes Free Text PE Notes GEN/CONST: awake, alert MS HEAD: normocephalic EYES: EOMI, no scleral icterus EARS/NOSE/THROAT: airway patent, mucous membrane s moist MS NECK: supple, FROM RESPIRATORY/CHEST: no resp distress CARDIOVASCULAR: Normal color ABDOMEN/GI: no distension. Clear navel discharge . MS BACK: painless ROM, non-tender MS UPPER EXT: inspection nml, no deformity MS LOWER EXT: inspection nml, no deformity SKIN: warm, dry, intact NEURO: nml speech, no motor deficits Interpretation Diagnostics Lab Results Interpretation Results Microbiology: Date/Time Procedure - Status Source Growth 05/05 921 Wound Culture - RES SKIN GRAM NEGATIVE ABHISHEK Patient Discharge Departure Vital Signs/Condition Vital Signs First Documented: Result Date Time Pulse Ox 100 05/05 0919 B/P 141/95 05/05 0919 B/P Mean 110 05/05 919 O2 Delivery Room air 05/05 919 Temp 36.9 05/05 919 Pulse 92 05/05 919 Resp 17 05/05 919 Last Documented: Result Date Time Pulse Ox 100 05/05 0919 B/P 141/95 05/05 0919 B/P Mean 110 05/05 0919 O2 Delivery Room air 05/05 919 Temp 36.9 05/05 0919 Pulse 92 05/05 919 Resp 17 05/05 919 All vital signs available at the time of this en try have been reviewed. Condition Stable Clinical Impression Clinical Impression Primary Impression: Skin infection Disposition Decision Discharge )( Discharged to Home Yes )( Time 0930 )( Date 05/05/22 Discharge/Care Plan Counseled Regarding Diagnosi s, Prescriptions, Need for follow-up, When to return to ED (Auto) Prescriptions Current Visit Scripts CLINDAMYCIN HCL (CLEOCIN) 300 MG PO Q6H CLINDAMYCIN HCL (CLEOCIN) 300 MG PO Q6H #40 CAP S CLINDAMYCIN HCL (CLEOCIN) 150 MG PO Q8H CLINDAMYCIN HCL (CLEOCIN) 150 MG PO Q8H #30 CAP S Prescriptions Reviewed Risks, Benefits, Alternat jasmine treatment Patient Instructions ED Cellulitis Additional Instructions You were seen in the ER for your drainage from n andrzej. While you were here, we did wound culture. Take the prescribed m edications as directed. Follow-up with PCP/dermatology. Return to the ER for any alarmi ng symptoms. Discharge Note I have spoken with the patie nt and/or caregivers. I have explained the patient's condition, diagnoses and marta atment plan based on the information available to me at this time. I have answered the patient's and/ or caregiver's questions and addressed any concerns. The patient and/or careg margaret have as good an understanding of the patient 's diagnosis, condition and treatment plan as can be expected at this point. The vital signs have bee n stable. The patient's condition is stable and appr opriate for discharge from the emergency department. The patient will pursue further outpatient evalu ation with the primary care physician or other designated or consulting phys ician as outlined in the discharge instructions. The patient and/or caregivers are agreeable to this plan of care and follow-up instructions have been exp lained in detail. The patient and/or caregivers have received these instructio ns in written format and have expressed an understanding of the discharge inst ructions. The patient and/or caregivers are aware that any significant change in condition or worsening of symptoms should prompt an immediate return to [facility] or the closest emergency department or a call to 911. Regina Ruiz 05/07/22 0656: Patient Discharge Departure Supervising Physician Note Kia Saw Pt Alone I have reviewed the PA/LAMP SHADE ASSEMBLER's note and plan of car e. I was available for consultation as needed at al l times during the patient's visit in the emergency department. I agree with the clinical impression , plan and disposition. Electronically Signed by Winnie Begum on 0 05/05/22 at 1456 Electronically Signed by Regina Ruiz MD on at 0656 RPT #:[id number] END OF REPORT 2021-12-26 11:38:00-00:00 [facility] ([facility]) EMERGENCY PROVIDER REPORT REPORT#:[id number] REPORT STATUS: Signed DATE:12/26/21 TIME: 113 PATIENT: REYNA EARLY UNIT #: [id number] ROOM/BED: AGE: 31 SEX: F PCP PHYS: No Primary or Family Ph ysician SERVICE AUTHOR: Winnie Begum * ALL edits or amendments must be made on the el [employer]/computer document * Winnie Begum 12/26/21 1138: HPI-Wrist Prob/Inj Free Text HPI Notes Free Text HPI Notes 31-year-old female presents to the emerg ency room with complaint of left wrist pain. States that has increa sed sharp radiating pain with any type of movement. 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 General Initial Greet Date/Time 12/26/21 0959 Presentation Chief Complaint Wrist injury L Review of Systems ROS Statements All systems rev neg except as marked. Past Medical History - Adult Stated Complaint L WRIST PAIN Allergies Coded Allergies: No Known Allergies (04/06/21) Home Medications Active Scripts methylPREDNISolone (MEDROL 4 MG DOSEPAK) 4 MG PO ASDIR methylPREDNISolone (MEDROL 4 MG DOSEPAK) 4 MG P O ASDIR #1 PACKET Prov: 04/06/21 D-METHORPHAN HB/P-EPD HCL/BPM (BROMPHENI J-[id number] SYR) 10 ML PO Q4H PRN PRN COUGH D-METHORPHAN HB/P-EPD HCL/BPM (BROMPHENIR-PSEUD OEPHED-DM SYR) 10 ML PO Q4H PRN PRN COUGH #120 ML Prov: 04/06/21 FEXOFENADINE/PSEUDOEPH ER (LIZETH-D 60/120 MG 1 2 HOUR) 1 TAB PO BID FEXOFENADINE/PSEUDOEPH ER (LIZETH-D 60/120 MG 12 HOUR) 1 TAB PO BID #24 TABS Prov: 04/06/21 ALBUTEROL (PROVENTIL HFA 90 MCG/ACT 6.7 GM) 1 PU FF INH RTQ4H ALBUTEROL (PROVENTIL HFA 90 MCG/ACT 6.7 GM) 1 P UFF INH RTQ4H #6.7 GM Prov: 04/06/21 Review of Nursing Notes Triage notes reviewed Past Medical History: Reports: Hypertension, Kidney disease/stones. Additional Medical History preeclampsia Past Surgical History: Reports: , Tonsillectomy. Drug Use Denies recreational drugs Smoking status: Smoking status for patients 13 years old or old er: Never Smoker Other Social History Local resident Physical Exam Vital Signs Vital Signs First Documented: Result Date Time Pulse Ox 99 12/26 954 B/P 143/94 12/26 0855 B/P Mean 110 12/26 09 O2 Delivery Room air 03/31 0955 Temp 36.6 12/26 0955 Pulse 74 12/26 0955 Resp 17 12/26 0955 Last Documented: Result Date Time Pulse Ox 100 12/26 1229 B/P 139/89 12/26 1229 B/P Mean 105 12/26 1229 O2 Delivery Room air 12/26 1229 Temp 36.7 12/26 1229 Pulse 71 12/26 1229 Resp 15 12/26 1229 Review of Vital Signs Reviewed Focused PE General/Const General/Const Awake, Alert, Well appearing MS Wrist/Hand Wrist/Hand Atraumatic, Inspection NL, Full rang e of motion, No swelling, No erythema, Non-tender, No snuffbox tender ness, No deformity, Neurologic intact, Vascular intact, No clubbing/cyanosis Skin Skin Color NL, Warm, Dry, Intact, Turgor NL, No swelling Neurologic Neurologic Oriented X3, Speech NL, No motor def icits, No sensory deficits Interpretation Diagnostics Lab Results Interpretation Results Recent Impressions: RADIOLOGY - XR WRIST 3 + V LT 12/26 1015 Report Impression - Status: SIGNED Entered: 12/26/2021 1121 IMPRESSION: Normal radiographs. Impression By: Jase Watkins M.D. Re-Evaluation MDM ED Course Medication(s) Ordered Medication(s) Ordered: Central Nervous System Agents Sig/Farrukh Start time Last Medication Dose Route Stop Time Status Admin Ketorolac 10 MG X1ED STA 12/26 1145 DC 12/26 Tromethamine PO 12/26 1146 1226 Patient Discharge Departure Vital Signs/Condition Vital Signs First Documented: Result Date Time Pulse Ox 99 12/26 0955 B/P 143/94 12/26 0955 B/P Mean 110 12/26 0955 O2 Delivery Room air 12/26 0955 Temp 36.6 12/26 0955 Pulse 74 12/26 0955 Resp 17 12/26 0955 Last Documented: Result Date Time Pulse Ox 100 12/26 1229 B/P 139/89 12/26 1229 B/P Mean 105 12/26 1229 O2 Delivery Room air 12/26 1229 Temp 36.7 12/26 1229 Pulse 71 12/26 1229 Resp 15 12/26 1229 All vital signs available at the time of this en try have been reviewed. Clinical Impression Clinical Impression Primary Impression: Wrist pain Secondary Impressions: Wrist pain, left Disposition Decision Discharge )( Discharged to Home Yes )( Time 1146 )( Date 12/26/21 Discharge/Care Plan Counseled Regarding Diagnosi s, Imaging studies, Prescriptions, Need for follow- up, When to return to ED (Auto) Prescriptions Current Visit Scripts KETOROLAC (TORADOL) 10 MG PO Q6H PRN PRN PAIN KETOROLAC (TORADOL) 10 MG PO Q6H PRN PRN PAIN # 20 TABS Patient Instructions ED Wrist Sprain Discharge Note I have spoken with the patie nt and/or caregivers. I have explained the patient's condition, diagnoses and marta atment plan based on the information available to me at this time. I have answered the patient's and/ or caregiver's questions and addressed any concerns. The patient and/or careg margaret have as good an understanding of the patient 's diagnosis, condition and treatment plan as can be expected at this point. The vital signs have bee n stable. The patient's condition is stable and appr opriate for discharge from the emergency department. The patient will pursue further outpatient evalu ation with the primary care physician or other designated or consulting phys ician as outlined in the discharge instructions. The patient and/or caregivers are agreeable to this plan of care and follow-up instructions have been exp lained in detail. The patient and/or caregivers have received these instructio ns in written format and have expressed an understanding of the discharge inst ructions. The patient and/or caregivers are aware that any significant change in condition or worsening of symptoms should prompt an immediate return to [facility] or the closest emergency department or a call to 911. Brooks Toribio 01/02/22 0248: Patient Discharge Departure Discharge/Care Plan Referrals Provider Referral: Ashkan Alvarez MD Address: [address] [place] [address] Supervising Physician Note MidLv Saw Pt Alone I have reviewed the PA/LAMP SHADE ASSEMBLER's note and plan of car e. I was available for consultation as needed at al l times during the patient's visit in the emergency department. I agree with the clinical impression , plan and disposition. Electronically Signed by Winnie Begum on 0 12/28/21 at 1257 at 0248 RPT #:[id number] END OF REPORT 2021-04-06 01:06:00-00:00 [facility] ([facility]) EMERGENCY PROVIDER REPORT REPORT#:[id number] REPORT STATUS: Signed DATE:04/06/21 TIME: 105 PATIENT: REYNA EARLY UNIT #: [id number] ROOM/BED: AGE: 30 SEX: F PCP PHYS: No Primary or Family Ph ysician SERVICE AUTHOR: Anca Smyth APR SUGAR PLANTATION MANAGER * ALL edits or amendments must be made on the [employer]/computer document * Anca Smyth 04/06/21 010: HPI-URI/Cough/Cold Free Text HPI Notes Free Text HPI Notes 30-year-old female who denies significant PMH pr esents to the ER with URI symptoms onset 5 days ago. She notes initially, all 3 of her children started with fever congestion and cough and was diagnose d with bronchiolitis. 2 days later she developed nasal co ngestion, sinus headache, congestive, painful cough with intermittent difficulty breathing. She had one episode of vomiting after taking Mucinex this morning. She notes her heada iliana is temporarily relieved with Tylenol and/or Motrin. She denies any fever but does note one episode of waking up sweating. Denies sore throat, neck sti ffness/neck pain, wheezing, shortness of breath, abdominal pain, nausea, tamra rrhea, dysuria, flank pain, rashes, arthralgias or any other symptoms. General Initial Greet Date/Time 04/05/21 4365 Presentation Chief Complaint Cough, non-productive, Upper res p infection Hx Obtained From Patient Review of Systems ROS Statements All systems rev neg except as marked. Focused Review of Systems Ears/Nose/Throat Reports: Nasal congestion, Sinus problem. Respiratory Reports: Cough, non-productive, Shortness of mague ath. GI Reports: Vomiting. Past Medical History - Adult Stated Complaint ABDALLA, COUGH, SOB Allergies Coded Allergies: No Known Allergies (04/06/21) Home Medications Discontinued Reported Medications LABETALOL (TRANDATE) 100 MG PO DAILY Calculated Suicide Risk (nurs) No risk Past Medical History: Reports: Hypertension, Kidney disease/stones. Additional Medical History preeclampsia Past Surgical History: Reports: , Tonsillectomy. Drug Use Denies recreational drugs Smoking status: Smoking status for patients 13 years old or old er: Never Smoker Other Social History Local resident Physical Exam Vital Signs Vital Signs First Documented: Result Date Time Pulse Ox 96 04/058 B/P 117/57 04/05 2358 B/P Mean 77 04/05 2358 O2 Delivery Room air 04/05 2358 Temp 36.3 04/05 2358 Pulse 96 04/05 2358 Resp 20 04/05 2358 Last Documented: Result Date Time Pulse Ox 96 04/05 2358 B/P 117/57 04/05 2358 B/P Mean 77 04/05 2358 O2 Delivery Room air 04/05 2358 Temp 36.3 04/05 2358 Pulse 96 04/05 2358 Resp 04/05 Review of Vital Signs Reviewed Free Text PE Notes Free Text PE Notes Gen: appears comfortable, cooperative Head: Normocephalic, atraumatic Eyes: Pupils midline, sclera NL, no periorbital edema Ears: No mastoid swelling or TTP Nose: no nasal drainage or sinus TTP, positive s ignificant audible nasal congestion Throat: Moist mucous membranes, handling secreti ons. Airway patent. OP clear without exudates or petechia. No tonsillar edema or erythema. No adenopathy Neck: FROM, non-tender, no visible edema, no men ingismus Lungs: Respirations NL. Faint bilateral expirato ry wheezing with intermittent coarse rhonchi. No dyspnea. Positive sig nificantly congested cough, no stridor or accessory muscle use. Heart/Chest: Regular rhythm, rate. No murmurs. N o peripheral edema. No chest wall TTP Abd: Soft, non-tender, non-distended, no rebound, guarding, or peritoneal sxs. No palpable masses or pulsatile masses. Negative Jupiter Sign. No TTP at [place] Ext: Gait steady, no obvious deformity. Back: Painless ROM, no CVA tenderness. No midlin e or paraspinal TTP. Neuro: awake and alert, speech NL for age, behav ior age-appropriate. Skin: color NL, normal temperature, intact, no v isible rashes Interpretation Diagnostics Lab Results Interpretation Results Laboratory Tests: 07/09 0007 Serology SARS CoV-2 RNA Rapid KEENAN (Negative) NEGATIVE Microbiology: Date/Time Procedure - Status Source Growth 04/05 7 Influenza Virus Type B Antigen - COM P NASOPHARG 04/05 7 Influenza Virus Type A Antigen - COM P NASOPHARG Recent Impressions: RADIOLOGY - XR CHEST 1 V 04/06 0042 Report Impression - Status: SIGNED Entered: 04/06/2021 0051 IMPRESSION: Mildly hypoinflated, but clear lungs. SL: TPAINTER-H Impression By: [email or web address] - Lucas Nicole M.D. Lab Imaging Statement Laboratory radiographic studies reviewed and con sidered in the medical decision-making. Re-Evaluation MDM Free Text MDM Notes Free Text MDM Notes Flu and Covid negative. Chest x-ray nega tive for any acute findings. Patient's clinical exam most consistent with viral bronchi tis. Patient with mild amount of coarse rhonchi with faint expiratory wheezing which improved by DuoNeb. Patient does not exhibit dyspnea, hypoxia or res piratory distress. Symptoms consistent with viral URI. P roximal be discharged home in stable condition with strict ER return precautions and recommendations to follow-up PCP Re-Evaluation/Progress Re-Evaluation/Progress Text/Dict Note Patient has now smiling upon reevaluation. She n otes she feels much better. Lungs are clear. She appears well and co mfortable. She exhibits no respiratory distress or tachypnea. I discussed all results, at home recommendations, anticipatory guidance and strict reasons when to return to the ER. I encourage PCP follow-up in 3 to 7 days. Time of Re-Eval 0158 Re-Eval Status Resolved ED Course Medication(s) Ordered Medication(s) Ordered: Autonomic Drugs Sig/Farrukh Start time Last Medication Dose Route Stop Time Status Admin Albuterol/Ipratropium 3 ML X1ED STA 04/06 002 DC 04/06 NEB 04/06 0022 0151 Central Nervous System Agents Sig/Farrukh Start time Last Medication Dose Route Stop Time Status Admin Ketorolac 10 MG X1ED STA 04/06 21 DC 04/06 Tromethamine PO 04/06 0022 0038 Eye, Ear, Nose And Throat (Een Sig/Farrukh Start time Last Medication Dose Route Stop Time Status Admin Dexamethasone 10 MG X1ED STA 04/06 21 DC 03/28 0 PO 04/06 0022 0038 Patient Discharge Departure Vital Signs/Condition Vital Signs First Documented: Result Date Time Pulse Ox 96 04/05 2358 B/P 117/57 04/058 B/P Mean 77 04/05 2358 O2 Delivery Room air 04/05 2358 Temp 36.3 04/05 2358 Pulse 96 04/058 Resp 20 04/05 2358 Last Documented: Result Date Time Pulse Ox 96 04/05 2358 B/P 117/57 04/05 2358 B/P Mean 77 04/05 2358 O2 Delivery Room air 04/05 2358 Temp 36.3 04/05 2358 Pulse 96 04/05 2358 Resp 20 04/05 2358 All vital signs available at the time of this en try have been reviewed. Condition Stable, Improved Clinical Impression Clinical Impression Primary Impression: Bronchitis Secondary Impressions: Viral URI Disposition Decision Discharge )( Discharged to Home Yes )( Time 0200 )( Date 04/06/21 Discharge/Care Plan Counseled Regarding Diagnosi s, Lab results, Imaging studies, Prescriptions, Need for follow-up, When to return to ED (Auto) Prescriptions Current Visit Scripts methylPREDNISolone (MEDROL 4 MG DOSEPAK) 4 MG PO ASDIR methylPREDNISolone (MEDROL 4 MG DOSEPAK) 4 MG P O ASDIR #1 PACKET Take as directed on package. D-METHORPHAN HB/P-EPD HCL/BPM (BROMPHENI G-[id number] SYR) 10 ML PO Q4H PRN PRN COUGH D-METHORPHAN HB/P-EPD HCL/BPM (BROMPHENIR-PSEU DOEPHED-DM SYR) 10 ML PO Q4H PRN PRN COUGH #120 ML FEXOFENADINE/PSEUDOEPH ER (LIZETH-D 60/120 MG 1 2 HOUR) 1 TAB PO BID FEXOFENADINE/PSEUDOEPH ER (LIZETH-D 60/120 MG 12 HOUR) 1 TAB PO BID #24 TABS ALBUTEROL (PROVENTIL HFA 90 MCG/ACT 6.7 GM) 1 PU FF INH RTQ4H ALBUTEROL (PROVENTIL HFA 90 MCG/ACT 6.7 GM) 1 P UFF INH RTQ4H #6.7 GM Patient Instructions ED Uppe r Resp Infec No Abx Tx, ED URI, Viral W/ Wheezing ( Adult) Additional Instructions Please seek medical attention or return to ER i f symptoms persist despite treatment or if new or worsening symptoms dylan hobbs Please follow up with your pcp or recommended specialist within 1-3 days Torrey Javed 04/06/21 0608: Patient Discharge Departure Supervising Physician Note Kia Saw Pt Alone I have reviewed the PA/LAMP SHADE ASSEMBLER's note and plan of car e. I was available for consultation as needed at al l times during the patient's visit in the emergency department. I agree with the clinical impression , plan and disposition. at 0212 Electronically Signed by Torrey Javed MD on at 0609 RPT #:[id number] END OF REPORT 2021-04-06 01:06:00-00:00 [facility] ([facility]) EMERGENCY PROVIDER REPORT REPORT#:[id number] REPORT STATUS: Signed DATE:04/06/21 TIME: 0106 PATIENT: REYNA EARLY UNIT #: [id number] ROOM/BED: AGE: 30 SEX: F PCP PHYS: No Primary or Family Ph ysician SERVICE AUTHOR: Anca Smyth APR [employer]ATION MANAGER * ALL edits or amendments must be made on the [employer]/computer document * HPI-URI/Cough/Cold Free Text HPI Notes Free Text HPI Notes 30-year-old female who denies significant PMH pr esents to the ER with URI symptoms onset 5 days ago. She notes initially, all 3 of her children started with fever congestion and cough and was diagnose d with bronchiolitis. 2 days later she developed nasal co ngestion, sinus headache, congestive, painful cough with intermittent difficulty breathing. She had one episode of vomiting after taking Mucinex this morning. She notes her heada iliana is temporarily relieved with Tylenol and/or Motrin. She denies any fever but does note one episode of waking up sweating. Denies sore throat, neck sti ffness/neck pain, wheezing, shortness of breath, abdominal pain, nausea, tamra rrhea, dysuria, flank pain, rashes, arthralgias or any other symptoms. General Initial Greet Date/Time 04/05/21 2345 Presentation Chief Complaint Cough, non-productive, Upper res p infection Hx Obtained From Patient Review of Systems ROS Statements All systems rev neg except as marked. Focused Review of Systems Ears/Nose/Throat Reports: Nasal congestion, Sinus problem. Respiratory Reports: Cough, non-productive, Shortness of mague ath. GI Reports: Vomiting. Past Medical History - Adult Stated Complaint ABDALLA, COUGH, SOB Allergies Coded Allergies: No Known Allergies (04/06/21) Home Medications Discontinued Reported Medications LABETALOL (TRANDATE) 100 MG PO DAILY Calculated Suicide Risk (nurs) No risk Past Medical History: Reports: Hypertension, Kidney disease/stones. Additional Medical History preeclampsia Past Surgical History: Reports: , Tonsillectomy. Drug Use Denies recreational drugs Smoking status: Smoking status for patients 13 years old or old er: Never Smoker Other Social History Local resident Physical Exam Vital Signs Vital Signs First Documented: Result Date Time Pulse Ox 96 04/05 2358 B/P 117/57 / 2358 B/P Mean 77 04/05 2358 O2 Delivery Room air 04/05 2358 Temp 36.3 04/05 2358 Pulse 96 04/05 2358 Resp 20 04/05 2358 Last Documented: Result Date Time Pulse Ox 96 04/05 2358 B/P 117/57 04/05 2358 B/P Mean 77 04/05 2358 O2 Delivery Room air 04/05 2358 Temp 36.3 / 2358 Pulse 96 / 2358 Resp 20 04/05 2358 Review of Vital Signs Reviewed Free Text PE Notes Free Text PE Notes Gen: appears comfortable, cooperative Head: Normocephalic, atraumatic Eyes: Pupils midline, sclera NL, no periorbital edema Ears: No mastoid swelling or TTP Nose: no nasal drainage or sinus TTP, positive s ignificant audible nasal congestion Throat: Moist mucous membranes, handling secreti ons. Airway patent. OP clear without exudates or petechia. No tonsillar edema or erythema. No adenopathy Neck: FROM, non-tender, no visible edema, no men ingismus Lungs: Respirations NL. Faint bilateral expirato ry wheezing with intermittent coarse rhonchi. No dyspnea. Positive sig nificantly congested cough, no stridor or accessory muscle use. Heart/Chest: Regular rhythm, rate. No murmurs. N o peripheral edema. No chest wall TTP Abd: Soft, non-tender, non-distended, no rebound, guarding, or peritoneal sxs. No palpable masses or pulsatile masses. Negative [place] Sign. No TTP at [place] Ext: Gait steady, no obvious deformity. Back: Painless ROM, no CVA tenderness. No midlin e or paraspinal TTP. Neuro: awake and alert, speech NL for age, behav ior age-appropriate. Skin: color NL, normal temperature, intact, no v isible rashes Interpretation Diagnostics Lab Results Interpretation Results Laboratory Tests: 04/05 7 Serology SARS CoV-2 RNA Rapid KEENAN (Negative) NEGATIVE Microbiology: Date/Time Procedure - Status Source Growth 04/05 7 Influenza Virus Type B Antigen - COM P NASOPHARG 04/05 7 Influenza Virus Type A Antigen - COM P NASOPHARG Recent Impressions: RADIOLOGY - XR CHEST 1 V 04/06 0042 Report Impression - Status: SIGNED Entered: 04/06/2021 0051 IMPRESSION: Mildly hypoinflated, but clear lungs. SL: TPAINTER-H Impression By: [email or web address] - Lucas Nicole M.D. Lab Imaging Statement Laboratory radiographic studies reviewed and con sidered in the medical decision-making. Re-Evaluation MDM Free Text MDM Notes Free Text MDM Notes Flu and Covid negative. Chest x-ray nega tive for any acute findings. Patient's clinical exam most consistent with viral bronchi tis. Patient with mild amount of coarse rhonchi with faint expiratory wheezing which improved by DuoNeb. Patient does not exhibit dyspnea, hypoxia or res piratory distress. Symptoms consistent with viral URI. P roximal be discharged home in stable condition with strict ER return precautions and recommendations to follow-up PCP Re-Evaluation/Progress Re-Evaluation/Progress Text/Dict Note Patient has now smiling upon reevaluation. She n otes she feels much better. Lungs are clear. She appears well and co mfortable. She exhibits no respiratory distress or tachypnea. I discussed all results, at home recommendations, anticipatory guidance and strict reasons when to return to the ER. I encourage PCP follow-up in 3 to 7 days. Time of Re-Eval 0158 Re-Eval Status Resolved ED Course Medication(s) Ordered Medication(s) Ordered: Autonomic Drugs Sig/Farrukh Start time Last Medication Dose Route Stop Time Status Admin Albuterol/Ipratropium 3 ML X1ED STA 04/06 002 DC 04/06 NEB 04/06 002 0151 Central Nervous System Agents Sig/Farrukh Start time Last Medication Dose Route Stop Time Status Admin Ketorolac 10 MG X1ED STA 04/06 21 DC 04/06 Tromethamine PO 04/06 0022 0038 Eye, Ear, Nose And Throat (Een Sig/Farrukh Start time Last Medication Dose Route Stop Time Status Admin Dexamethasone 10 MG X1ED STA 04/06 21 DC 03/28 0 PO 04/06 002 0038 Patient Discharge Departure Vital Signs/Condition Vital Signs First Documented: Result Date Time Pulse Ox 96 / 2358 B/P 117/57 07/ 2358 B/P Mean 77 07/ 2358 O2 Delivery Room air 04/05 2358 Temp 36.3 07/09 2358 Pulse 96 07/ 2358 Resp 20 04/05 2358 Last Documented: Result Date Time Pulse Ox 96 07/ 2358 B/P 117/57 / 2358 B/P Mean 77 07/09 2358 O2 Delivery Room air / 2358 Temp 36.3 07/09 2358 Pulse 96 07/ 2358 Resp 20 04/05 2358 All vital signs available at the time of this en try have been reviewed. Condition Stable, Improved Clinical Impression Clinical Impression Primary Impression: Bronchitis Secondary Impressions: Viral URI Disposition Decision Discharge )( Discharged to Home Yes )( Time 0200 )( Date 04/06/21 Discharge/Care Plan Counseled Regarding Diagnosi s, Lab results, Imaging studies, Prescriptions, Need for follow-up, When to return to ED (Auto) Prescriptions Current Visit Scripts methylPREDNISolone (MEDROL 4 MG DOSEPAK) 4 MG PO ASDIR methylPREDNISolone (MEDROL 4 MG DOSEPAK) 4 MG P O ASDIR #1 PACKET Take as directed on package. D-METHORPHAN HB/P-EPD HCL/BPM (BROMPHENI B-[id number]-[id number] SYR) 10 ML PO Q4H PRN PRN COUGH D-METHORPHAN HB/P-EPD HCL/BPM (BROMPHENIR-PSEUD OEPHED-DM SYR) 10 ML PO Q4H PRN PRN COUGH #120 ML FEXOFENADINE/PSEUDOEPH ER (LIZETH-D 60/120 MG 1 2 HOUR) 1 TAB PO BID FEXOFENADINE/PSEUDOEPH ER (LIZETH-D 60/120 MG 12 HOUR) 1 TAB PO BID #24 TABS ALBUTEROL (PROVENTIL HFA 90 MCG/ACT 6.7 GM) 1 PU FF INH RTQ4H ALBUTEROL (PROVENTIL HFA 90 MCG/ACT 6.7 GM) 1 P UFF INH RTQ4H #6.7 GM Patient Instructions ED Uppe r Resp Infec No Abx Tx, ED URI, Viral W/ Wheezing ( Adult) Additional Instructions Please seek medical attention or return to ER i f symptoms persist despite treatment or if new or worsening symptoms dylan p. Please follow up with your pcp or recommended specialist within 1-3 days at 0212 RPT #:[id number] END OF REPORT 2019-10-21 19:41:00-00:00 [facility] ([facility]) EMERGENCY PROVIDER REPORT REPORT#:[id number] REPORT STATUS: Signed DATE:10/21/19 TIME: 1940 PATIENT: REYNA EARLY UNIT #: [id number] ROOM/BED: AGE: 29 SEX: F PCP PHYS: No Primary or Family P hysician SERVICE AUTHOR: Enrico Davies MD * ALL edits or amendments must be made on the el [employer]/computer document * HPI-URI/Cough/Cold General Confirmed Patient Yes Initial Greet Date/Time 10/21/191935 Presentation Chief Complaint dry cough Hx Obtained From Patient Onset Occurred Days ago (4) Symptom Duration Since onset Progression since Onset Unchanged Context of Onset No sick contacts Location Chest, Pharynx Quality Painful Radiation Does not radiate Severity: Onset Moderate Severity: Current Moderate Associated with Reports: Chest pain, Cough, Rhinorrhea, Sore thr oat. Denies: Fever, Shortness of breath. Exacerbated by Nothing Relieved by Nothing Free Text HPI Notes Free Text HPI Notes 29 y/o female with PMHx of preeclampsia, c-secti on, kidney stones, and tonsillectomy presents to ER with CC of dry coug h that started 4 days ago. Pt reports sore throat, runny nose, CP with cough, SOB at times, and bladder incontinence with cough. She denies fever and le g swelling. Portions of this section were scribed by Risa Vasques on 10/21/19 at 1949 Review of Systems ROS Statements All systems rev neg except as marked. Focused Review of Systems Constitutional Denies: Chills, Fever. Ears/Nose/Throat Reports: Sore throat. Denies: Throat pain. Respiratory Reports: Cough, non-productive. Denies: Shortnes s of breath. Additional Review of Systems Cardiovascular Reports: Chest pain. Denies: Palpitations. Female Reports: Incontinence. Denies: Dysuria. Musculoskeletal Denies: Extremity pain, Extremity swelling. Portions of this section were scribed by Risa Vasques on 10/21/19 at 1941 Past Medical History - Adult Stated Complaint COUGHING/CHEST PAIN Allergies Coded Allergies: No Known Allergies (10/21/19) Home Medications Discontinued Scripts IBUPROFEN (MOTRIN) 800 MG PO Q8H PRN PRN ABDOMIN AL CRAMPS IBUPROFEN (MOTRIN) 800 MG PO Q8H PRN PRN ABDOMI NAL CRAMPS #45 TABS Prov: 02/02/19 DC: 10/21/191942 Therapy completed ACETAMINOPHEN/CODEINE (TYLENOL WITH CODE INE #3 300/30 MG) 1 TAB PO Q6H PRN PRN ABDOMINAL CRAMPS ACETAMINOPHEN/CODEINE (TYLENOL WITH CODEINE #3 300/30 MG) 1 TAB PO Q6H PRN PRN ABDOMINAL CRAMPS #28 TABS Prov: 02/02/19 DC: 10/21/191942 Therapy completed Reported Medications LABETALOL (TRANDATE) 100 MG PO DAILY Past Medical History: Reports: Hypertension, Kidney disease/stones. Additional Medical History preeclampsia Past Surgical History: Reports: , Tonsillectomy. Drug Use Denies recreational drugs Smoking status for patients 13 years old or olde r: Never Smoker Other Social History Local resident Portions of this section were scribed by Risa Vasques on 10/21/19 at 1949 Physical Exam Vital Signs Vital Signs First Documented: Result Date Time Pulse Ox 98 10/21 1927 B/P 114/71 10/21 1927 B/P Mean 85 10/21 1927 O2 Delivery Room air 10/21 1927 Temp 36.7 10/21 1927 Pulse 78 10/21 1927 Resp 20 10/21 1927 Last Documented: Result Date Time Pulse Ox 98 10/21 1927 B/P 114/71 10/21 1927 B/P Mean 85 10/21 1927 O2 Delivery Room air 10/21 1927 Temp 36.7 10/21 1927 Pulse 78 10/21 1927 Resp 20 10/21 1927 Review of Vital Signs Reviewed Focused PE General/Const General/Const Awake, Alert Eyes Eyes PERRL, EOMI Ears/Nose/Throat Ears/Nose/Throat Airway patent, Mucous membrane s moist, Pharynx NL, Tympanic membs NL, Nose exam NL MS Neck Neck Supple, Full range of motion Resp/Chest Respiratory/Chest Breath sounds NL, Breath soun ds = bilat, No respiratory distress Cardiovascular Cardiovascular Heart rate NL, Regular rhythm, H eart sounds NL Abdomen/GI Abdomen/GI Soft, Non-tender, No guarding, No re bound Skin Skin Warm, Dry Neurologic Neurologic Oriented X3, Speech NL Additional PE MS Head Head Atraumatic, Normocephalic MS Back Back No midline vertebral tend, No CVA tenderne ss MS Lower Extrem Lower Ext/Pelvis/MS Non-tender, No edema Portions of this section were scribed by Risa Vasques on 10/21/19 at 1949 Interpretation Diagnostics Lab Results Interpretation Results Microbiology: Date/Time Procedure - Status Source Growth 10/21 1939 Influenza Virus Type B Antigen - COM P NASAL 10/21 1939 Influenza Virus Type A Antigen - COM P NASAL Recent Impressions: RADIOLOGY - XR CHEST 2 V 10/21 1944 Report Impression - Status: SIGNED Entered: 10/21/20192011 IMPRESSION: Patchy atelectasis at the bases Impression By: Alessandra Guaman M.D. Lab Imaging Statement Laboratory radiographic studies reviewed and con sidered in the medical decision-making. Point of Care Testing Micro Interpretation Influenza rapid - neg Pulse Oximetry Pulse Ox % 98 On: Room air Interpretation Interpreted by me, Pulse oximetr y normal Time 1927 ECG #1 Interpretation Date 10/21/19 Time 1919 Interpreted by ED physician NL ECG Interpretation Normal rate, Normal sinus rhythm, No acute ischemic changes, No STEMI, Normal QRS, Normal ST waves, Normal T waves, Normal axis, Normal intervals Rate 90 Portions of this section were scribed by Risa Vasques on 10/21/19 at 1949 Re-Evaluation MDM Re-Evaluation/Progress Re-Evaluation/Progress Text/Dict Note Patient in no acute distress. Patient has mild b ibasilar patchy atelectasis, possibly early pneumonia. She appears well and n ontoxic. She was given return precautions and voiced understanding. Time of Re-Eval 2020 Re-Eval Status Improved Patient Discharge Departure Vital Signs/Condition Vital Signs First Documented: Result Date Time Pulse Ox 98 10/21 1927 B/P 114/71 10/21 1927 B/P Mean 85 10/21 1927 O2 Delivery Room air 10/21 1927 Temp 36.7 10/21 1927 Pulse 78 10/21 1927 Resp 20 10/21 1927 Last Documented: Result Date Time Pulse Ox 98 10/21 1927 B/P 114/71 10/21 192 B/P Mean 85 10/21 1927 O2 Delivery Room air 10/21 1927 Temp 36.7 10/21 1927 Pulse 78 10/21 1927 Resp 20 10/21 1927 All vital signs available at the time of this en try have been reviewed. Condition Improved, Stable Clinical Impression Clinical Impression Primary Impression: Pneumonia Time of Impression 2020 Disposition Decision Discharge )( Discharged to Home Yes )( Time 2020 )( Date 10/21/19 Discharge/Care Plan Counseled Regarding Diagnosi s, Lab results, Imaging studies, Prescriptions, Need for follow-up, When to return to ED Prescriptions azithromycin, bromfed Quality Measures BP F/U for HTN BP in normal range Smoking Cessation Screened, non user Supervising Physician Note Scribe Statement By signing my name below, I, Risa Vasques, attest that this document has been prepared under the direction and in the presence of Dr. Samson MD. Electronically signed: Tommy North. Date: 10/21/2019. Time:1950 Provider Scribed Statement I personally performed the s ervices described in this documentation and reviewed the documentation that was dictated to the scrib e(s) in my presence, and it accurately records my words and actions. Enrico Renee se, V, 10/21/19 Portions of this section were scribed by Risa Vasques on 10/21/19 at 1949 at 2025 RPT #:[id number] END OF REPORT 2019-02-06 22:36:00-00:00 [facility] ([facility]) EMERGENCY PROVIDER REPORT REPORT#:[id number] REPORT STATUS: Signed DATE:02/06/19 TIME: 2235 PATIENT: REYNA EARLY UNIT #: [id number] ROOM/BED: AGE: 28 SEX: F PCP PHYS: Gabriel Torres MD SERVICE AUTHOR: Winnie Begum rd LAMP SHADE ASSEMBLER * ALL edits or amendments must be made on the [employer]/computer document * HPI-Abd Pain F Under 40 General Confirmed Patient Yes Initial Greet Date/Time 02/06/192225 PCP Dr. Gabriel Torres Presentation Chief Complaint Abdominal pain Hx Obtained From Patient Sudden in Onset? Yes Onset Occurred Today Symptom Duration Waxes and wanes Progression since Onset Unchanged Caused by No trauma by history Location Abdomen upper Associated with Reports: Nausea, Vomiting. Denies: Fever. Context Recent Healthcare Recent hospitalization /Sexual Hx Status Post- Free Text HPI Notes Free Text HPI Notes 28 y/o F w/ PMHx of HTN presents to ED w/ c/o up per abd pain since 1700. Pt states the pain waxes and wa faraz at 10/10. Pt reports associated sx of 5 episodes of N/V but denies fever, dys pnea or any other sx. 02/01/[address] Rosas at 33 weeks for preeclampsia and denies any pain, bleeding, or drainage from incision site. Of note, pt breast feeds new born who is in NICU. Portions of this section were scribed by Octavia Echavarria on 02/07/19 at 0114 Risk-Abd Pain F Under 40 )( Ectopic Risk factors reviewed Portions of this section were scribed by Octavia Echavarria on 02/06/19 at 2236 Review of Systems ROS Statements All systems rev neg except as marked. Focused Review of Systems Constitutional Denies: Fever. Respiratory Denies: Shortness of breath. GI Reports: Abdominal pain, Nausea, Vomiting. Portions of this section were scribed by Octavia Echavarria on 02/06/19 at 2236 Past Medical History - Adult Stated Complaint POST 02/01.ABD P AIN N/V. Allergies Coded Allergies: No Known Allergies (02/01/19) Home Medications Active Scripts IBUPROFEN (MOTRIN) 800 MG PO Q8H PRN PRN ABDOMIN AL CRAMPS IBUPROFEN (MOTRIN) 800 MG PO Q8H PRN PRN ABDOMI NAL CRAMPS #45 TABS Prov: 02/02/19 ACETAMINOPHEN/CODEINE (TYLENOL WITH CODE INE #3 300/30 MG) 1 TAB PO Q6H PRN PRN ABDOMINAL CRAMPS ACETAMINOPHEN/CODEINE (TYLENOL WITH CODEINE #3 300/30 MG) 1 TAB PO Q6H PRN PRN ABDOMINAL CRAMPS #28 TABS Prov: 02/02/19 Reported Medications LABETALOL (TRANDATE) 100 MG PO DAILY Discontinued Reported Medications PNV WITH FE FUMARATE/FA () 1 TAB PO GUDELIA Y BUTALBITAL/APAP/CAFF 50/300/40 MG (FIORICET) 1 C AP PO Q4H PRN PRN HEADACHE LABETALOL (TRANDATE) 300 MG PO TID Past Medical History: Reports: Hypertension. Past Surgical History: Reports: . Pt reports no Fam Hx pert to chief complaint. Drug Use Denies recreational drugs Smoking status for patients 13 years old or olde r: Former Smoker Other Social History Local resident Portions of this section were scribed by Octavia Echavarria on 02/06/19 at 2236 Physical Exam Vital Signs Vital Signs First Documented: Result Date Time Pulse Ox 98 02/07 2208 B/P 137/80 02/07 2208 B/P Mean 99 02/07 2208 O2 Delivery Room air 02/07 2208 Temp 37.0 02/07 2208 Pulse 97 02/07 2208 Resp 16 02/07 2208 Last Documented: Result Date Time Pulse Ox 98 02/07 2208 B/P 137/80 02/07 2208 B/P Mean 99 02/07 2208 O2 Delivery Room air 02/07 2208 Temp 37.0 02/07 2208 Pulse 97 02/07 2208 Resp 16 02/07 2208 Review of Vital Signs Reviewed Focused PE General/Const General/Const Awake, Alert, Well appearing, Demurrage Man perative Text/Dict Notes Became tearful during exam Appearance/Presentation Obese. MS Head Head Atraumatic, Normocephalic Eyes Eyes EOMI, Conjunctiva NL Ears/Nose/Throat Ears/Nose/Throat Airway patent, Mucous membrane s moist Resp/Chest Respiratory/Chest Breath sounds NL, No respirat ory distress, No rales, No rhonchi, No wheezing Cardiovascular Cardiovascular Heart rate NL, Regular rhythm, H eart sounds NL Abdomen/GI Abdomen/GI Soft, No guarding, No rebound, No di stention Text/Dict Notes Upper abd tenderness, Noted wound-vac on c-secti on incision MS Back Back Full range of motion, Non-tender, No CVA t enderness Skin Skin Warm, Dry, Intact Genitourinary General Exam deferred Rectum Rectum/Perineum Exam deferred Neurologic Neurologic Oriented X3, Speech NL Additional PE Psychiatric Psychiatric Affect NL, Mood NL Portions of this section were scribed by Octavia Echavarria on 02/07/19 at 0114 Interpretation Diagnostics Lab Results Interpretation Results Laboratory Tests 02/06/192312: [Embedded Image Not Available] Laboratory Tests: 02/06 2313 Chemistry Sodium (134 - 147 mEq/L) 141 Potassium (3.4 - 5.0 mEq/L) 4.2 Chloride (100 - 108 mEq/L) 106 Carbon Dioxide (21 - 33 mEq/L) 28 Anion Gap (0 - 20) 11 BUN (7 - 18 mg/dL) 15 Creatinine (0.6 - 1.3 mg/dL) 0.6 Glomerular Filtr Rate (110 - 120) 119.0 Glucose (70 - 110 mg/dL) 107 Calcium (8.0 - 10.5 mg/dL) 8.5 Total Bilirubin (0.0 - 1.0 mg/dL) 0.20 AST (15 - 37 IUnit/L) 56 H ALT (15 - 65 IUnit/L) 32 Total Alk Phosphatase (20 - 125 IUnit/L) 89 Total Protein (6.4 - 8.2 g/dL) 6.9 Albumin (3.4 - 5.0 g/dL) 2.70 L Hematology WBC (4.5 - 11.0 x10 3/uL) 10.71 RBC (3.54 - 5.02 x10 6/uL) 4.04 Hgb (11.0 - 15.0 g/dL) 11.8 Hct (33.0 - 45.0 %) 36.7 MCV (81.0 - 99.0 fL) 90.8 MCH (27.0 - 33.0 pg) 29.2 MCHC (33.0 - 37.0 g/dL) 32.2 L RDW (11.5 - 14.5 %) 14.0 Plt Count (150 - 400 x10 3/uL) 332 MPV (7.0 - 9.0 fL) 9.9 H Neut % (Auto) (56.0 - 77.0 %) 85.1 H Lymph % (Auto) (14.0 - 32.0 %) 7.7 L [place] % (Auto) (4.8 - 9.0 %) 4.6 L Eos % (Auto) (0.3 - 3.7 %) 1.4 Baso % (Auto) (0.0 - 2.0 %) 0.3 Neut # (Auto) (2.0 - 7.6 x10 3/uL) 9.12 H Lymph # (Auto) (1.0 - 3.8 x10 3/uL) 0.82 L [place] # (Auto) (0.1 - 0.8 x10 3/uL) 0.49 Eos # (Auto) (0.0 - 0.2 x10 3/uL) 0.15 Baso # (Auto) (0.0 - 0.2 x10 3/uL) 0.03 Abs Immat Gran (auto) (0.00 - 0.03 x10 3/uL) 0. 10 H Add Manual Diff NO Immature Gran % (0.0 - 2.0 %) 0.9 Nucleated RBC % (0 - 0 %) 0.0 Nucleated RBCs # (Man) (0.0 - 0.1 x10 3/uL) 0.0 0 Microbiology: Date/Time Procedure - Status Source Growth 02/07 2356 Urine Culture - WKST URINE 02/06 2314 Blood Culture - RECD BLOOD 05/12 2313 Blood Culture - RECD BLOOD Recent Impressions: CAT SCAN - CT ABD PELVIS W/CONT 02/07 0037 Report Impression - Status: SIGNED Entered: 02/07/2019 0059 IMPRESSION: 1. Mildly prominent fluid-filled small and large bowel loops most likely due to diarrheal condition. No bowel obst ruction seen. 2. Periumbilical subcutaneous edema and inflamma tory changes with trace subcutaneous air, probably due to recent p rocedure. 3. Punctate bilateral renal stones. No hydroneph rosis seen. 4. Enlarged uterus. 5. Small fat-containing umbilical hernia. SL: SHANA Impression By: [email or web address] - Jairo Reynolds M.D. Lab Imaging Statement Laboratory radiographic studies reviewed and con sidered in the medical decision-making. Point of Care Testing Pulse Oximetry Pulse Ox % 98 On: Room air Interpretation Interpreted by me, Pulse oximetr y normal Time [address] Abdomen/Pelvis Study type IV contrast, Oral contrast Text/Dict Note IMPRESSION: 1. Mildly prominent fluid-fi lled small and large bowel loops most likely due to diarrheal condition. No bowel obstruction seen. 2. Periumbilical subcutaneous edema and inflamma tory changes with trace subcutaneous air, probably due to recent procedu re. 3. Punctate bilateral renal stones. No hydroneph rosis seen. 4. Enlarged uterus. 5. Small fat-containing umbilical hernia. Interpretation/Wet Read by Interpret - Radiolog ist Reviewed by ED LAMP SHADE ASSEMBLER Portions of this section were scribed by Octavia Echavarria on 02/07/19 at 0114 Re-Evaluation MDM Free Text MDM Notes Free Text MDM Notes 28 y/o s/p , w/ upper abd pain onset to day. Imaging negative for abscess, post surgical infections, labs negative. VSS. Doubt obstruction. Pain possible post surgical pain. Will d/c home w f/u OB. )( Re-Evaluation/Progress #1 Text/Dict Note Discussed Dx, lab/imaging results and precaution s for ED return with pt. Pt agrees with plan for d/c and need for f/u with P CP. Pt was advised to "pump and dump" to avoid breas t feeding while taking medication. Time of Re-Eval 0115 )( Re-Eval Status Improved ED Course Medication(s) Ordered Medication(s) Ordered: Central Nervous System Agents Sig/Farrukh Start time Last Medication Dose Route Stop Time Status Admin Morphine Sulfate 4 MG X1ED STA 02/067 DC / IV 02/06 231 2319 Diagnostic Agents Sig/Farrukh Start time Last Medication Dose Route Stop Time Status Admin Iohexol 500 ML .STK-MED ONE 02/07 0036 DC 02/07 PO 02/07 0037 0036 Iopamidol 100 ML .STK-MED ONE 02/07 0036 DC IV 02/07 0037 0036 Electrolytic, Caloric, And Kong Sig/Farrukh Start time Last Medication Dose Route Stop Time Status Admin Sodium Chloride 1,000 ML X1ED STA 02/066 DC / IV 02/06 2335 2312 Gastrointestinal Drugs Sig/Farrukh Start time Last Medication Dose Route Stop Time Status Admin Ondansetron HCl 4 MG X1ED STA 02/067 DC SL 02/068 2312 Portions of this section were scribed by Octavia Echavarria on 02/07/19 at 0114 Patient Discharge Departure Vital Signs/Condition Vital Signs First Documented: Result Date Time Pulse Ox 98 02/068 B/P 137/80 / 2208 B/P Mean 99 / 2208 O2 Delivery Room air 02/07 2208 Temp 37.0 02/07 2208 Pulse 97 02/06 2208 Resp 16 02/068 Last Documented: Result Date Time Pulse Ox 98 02/06 2208 B/P 137/80 / 2208 B/P Mean 99 / 2208 O2 Delivery Room air 02/07 2208 Temp 37.0 02/07 2208 Pulse 97 02/06 2208 Resp 16 02/068 All vital signs available at the time of this en try have been reviewed. Condition Improved, Stable Clinical Impression Clinical Impression Primary Impression: Abdominal pain Disposition Decision Discharge )( Discharged to Home Yes )( Time 0114 )( Date 02/07/19 Discharge/Care Plan Counseled Regarding Diagnosi s, Lab results, Imaging studies, Prescriptions, Need for follow-up, When to return to ED Prescriptions Bentyl Prescriptions Reviewed Risks, Benefits, Alternat jasmine treatment Supervising Physician Note Scribe Statement Octavia Echavarria, 02/06/19 2236, scribing for a nd in the presence of Winnie Begum NP. Signed By: Octavia Echavarria, 02/[birth year]/192235 Provider Scribed Statement I personally performed the s ervices described in this documentation and reviewed the documentation that was dictated to the scrib e(s) in my presence, and it accurately records my words and actions. Winnie Salamanca, 02/07/19 Portions of this section were scribed by Octavia Echavarria on 02/07/19 at 0114 at 0150 RPT #:[id number] END OF REPORT 2019-02-06 22:36:00-00:00 [facility] ([facility] EMERGENCY PROVIDER REPORT REPORT#:[id number] REPORT STATUS: Signed DATE:02/06/19 TIME: 2235 PATIENT: REYNA EARLY UNIT #: [id number] ROOM/BED: AGE: 28 SEX: F PCP PHYS: Gabriel Torres MD SERVICE AUTHOR: Winnie Begum rd LAMP SHADE ASSEMBLER * ALL edits or amendments must be made on the [employer]/computer document * Winnie Begum [birth year]192235: HPI-Abd Pain F Under 40 General Confirmed Patient Yes PCP Dr. Gabriel Torres Presentation Chief Complaint Abdominal pain Hx Obtained From Patient Sudden in Onset? Yes Onset Occurred Today Symptom Duration Waxes and wanes Progression since Onset Unchanged Caused by No trauma by history Location Abdomen upper Associated with Reports: Nausea, Vomiting. Denies: Fever. Context Recent Healthcare Recent hospitalization /Sexual Hx Status Post- Free Text HPI Notes Free Text HPI Notes 28 y/o F w/ PMHx of HTN presents to ED w/ c/o up per abd pain since 1700. Pt states the pain waxes and wa faraz at 07/07. Pt reports associated sx of 5 episodes of N/V but denies fever, dys pnea or any other sx. 02/01/[address] Rosas at 33 weeks for preeclampsia and denies any pain, bleeding, or drainage from incision site. Of note, pt breast feeds new born who is in NICU. Portions of this section were scribed by Octavia Echavarria on 02/07/19 at 0114 Risk-Abd Pain F Under 40 )( Ectopic Risk factors reviewed Portions of this section were scribed by Octavia Echavarria on 02/06/19 at 2236 Review of Systems ROS Statements All systems rev neg except as marked. Focused Review of Systems Constitutional Denies: Fever. Respiratory Denies: Shortness of breath. GI Reports: Abdominal pain, Nausea, Vomiting. Portions of this section were scribed by Octavia Echavarria on 02/06/19 at 2236 Past Medical History - Adult Stated Complaint POST 02/01.ABD P AIN N/V. Past Medical History: Reports: Hypertension. Past Surgical History: Reports: . Pt reports no Fam Hx pert to chief complaint. Drug Use Denies recreational drugs Smoking status for patients 13 years old or olde r: Former Smoker Other Social History Local resident Portions of this section were scribed by Octavia Echavarria on 02/06/19 at 2236 Physical Exam Vital Signs Vital Signs First Documented: Result Date Time Pulse Ox 98 02/07 2208 B/P 137/80 02/07 2208 B/P Mean 99 02/07 2208 O2 Delivery Room air 02/07 2208 Temp 37.0 02/07 2208 Pulse 97 02/07 2208 Resp 16 02/07 2208 Last Documented: Result Date Time Pulse Ox 98 02/07 2208 B/P 137/80 02/07 2208 B/P Mean 99 02/07 2208 O2 Delivery Room air 02/07 2208 Temp 37.0 02/07 2208 Pulse 97 02/07 2208 Resp 16 02/07 2208 Review of Vital Signs Reviewed Focused PE General/Const General/Const Awake, Alert, Well appearing, Demurrage Man perative Text/Dict Notes Became tearful during exam Appearance/Presentation Obese. MS Head Head Atraumatic, Normocephalic Eyes Eyes EOMI, Conjunctiva NL Ears/Nose/Throat Ears/Nose/Throat Airway patent, Mucous membrane s moist Resp/Chest Respiratory/Chest Breath sounds NL, No respirat ory distress, No rales, No rhonchi, No wheezing Cardiovascular Cardiovascular Heart rate NL, Regular rhythm, H eart sounds NL Abdomen/GI Abdomen/GI Soft, No guarding, No rebound, No di stention Text/Dict Notes Upper abd tenderness, Noted wound-vac on c-secti on incision MS Back Back Full range of motion, Non-tender, No CVA t enderness Skin Skin Warm, Dry, Intact Genitourinary General Exam deferred Rectum Rectum/Perineum Exam deferred Neurologic Neurologic Oriented X3, Speech NL Additional PE Psychiatric Psychiatric Affect NL, Mood NL Portions of this section were scribed by Octavia Echavarria on 02/07/19 at 0114 Interpretation Diagnostics Lab Results Interpretation Results Laboratory Tests 02/06/192312: [Embedded Image Not Available] Laboratory Tests: 02/06 2313 Chemistry Sodium (134 - 147 mEq/L) 141 Potassium (3.4 - 5.0 mEq/L) 4.2 Chloride (100 - 108 mEq/L) 106 Carbon Dioxide (21 - 33 mEq/L) 28 Anion Gap (0 - 20) 11 BUN (7 - 18 mg/dL) 15 Creatinine (0.6 - 1.3 mg/dL) 0.6 Glomerular Filtr Rate (110 - 120) 119.0 Glucose (70 - 110 mg/dL) 107 Calcium (8.0 - 10.5 mg/dL) 8.5 Total Bilirubin (0.0 - 1.0 mg/dL) 0.20 AST (15 - 37 IUnit/L) 56 H ALT (15 - 65 IUnit/L) 32 Total Alk Phosphatase (20 - 125 IUnit/L) 89 Total Protein (6.4 - 8.2 g/dL) 6.9 Albumin (3.4 - 5.0 g/dL) 2.70 L Hematology WBC (4.5 - 11.0 x10 3/uL) 10.71 RBC (3.54 - 5.02 x10 6/uL) 4.04 Hgb (11.0 - 15.0 g/dL) 11.8 Hct (33.0 - 45.0 %) 36.7 MCV (81.0 - 99.0 fL) 90.8 MCH (27.0 - 33.0 pg) 29.2 MCHC (33.0 - 37.0 g/dL) 32.2 L RDW (11.5 - 14.5 %) 14.0 Plt Count (150 - 400 x10 3/uL) 332 MPV (7.0 - 9.0 fL) 9.9 H Neut % (Auto) (56.0 - 77.0 %) 85.1 H Lymph % (Auto) (14.0 - 32.0 %) 7.7 L [place] % (Auto) (4.8 - 9.0 %) 4.6 L Eos % (Auto) (0.3 - 3.7 %) 1.4 Baso % (Auto) (0.0 - 2.0 %) 0.3 Neut # (Auto) (2.0 - 7.6 x10 3/uL) 9.12 H Lymph # (Auto) (1.0 - 3.8 x10 3/uL) 0.82 L [place] # (Auto) (0.1 - 0.8 x10 3/uL) 0.49 Eos # (Auto) (0.0 - 0.2 x10 3/uL) 0.15 Baso # (Auto) (0.0 - 0.2 x10 3/uL) 0.03 Abs Immat Gran (auto) (0.00 - 0.03 x10 3/uL) 0. 10 H Add Manual Diff NO Immature Gran % (0.0 - 2.0 %) 0.9 Nucleated RBC % (0 - 0 %) 0.0 Nucleated RBCs # (Man) (0.0 - 0.1 x10 3/uL) 0.0 0 Microbiology: Date/Time Procedure - Status Source Growth 02/06 2356 Urine Culture - COMP URINE 02/06 2314 Blood Culture - RES BLOOD 02/06 2313 Blood Culture - RES BLOOD Recent Impressions: CAT SCAN - CT ABD PELVIS W/CONT 02/07 0037 Report Impression - Status: SIGNED Entered: 02/07/2019 0059 IMPRESSION: 1. Mildly prominent fluid-filled small and large bowel loops most likely due to diarrheal condition. No bowel obst ruction seen. 2. Periumbilical subcutaneous edema and inflamma tory changes with trace subcutaneous air, probably due to recent p rocedure. 3. Punctate bilateral renal stones. No hydroneph rosis seen. 4. Enlarged uterus. 5. Small fat-containing umbilical hernia. SL: BERNY-H Impression By: KishanJSJhon - Jairo Reynolds M.D. Lab Imaging Statement Laboratory radiographic studies reviewed and con sidered in the medical decision-making. Point of Care Testing Pulse Oximetry Pulse Ox % 98 On: Room air Interpretation Interpreted by me, Pulse oximetr y normal Time [address] Abdomen/Pelvis Study type IV contrast, Oral contrast Text/Dict Note IMPRESSION: 1. Mildly prominent fluid-fi lled small and large bowel loops most likely due to diarrheal condition. No bowel obstruction seen. 2. Periumbilical subcutaneous edema and inflamma tory changes with trace subcutaneous air, probably due to recent procedu re. 3. Punctate bilateral renal stones. No hydroneph rosis seen. 4. Enlarged uterus. 5. Small fat-containing umbilical hernia. Interpretation/Wet Read by Interpret - Radiolog ist Reviewed by ED LAMP SHADE ASSEMBLER Portions of this section were scribed by Octavia Echavarria on 02/07/19 at 0114 Re-Evaluation MDM Free Text MDM Notes Free Text MDM Notes 28 y/o s/p , w/ upper abd pain onset to day. Imaging negative for abscess, post surgical infections, labs negative. VSS. Doubt obstruction. Pain possible post surgical pain. Will d/c home w f/u OB. )( Re-Evaluation/Progress #1 Text/Dict Note Discussed Dx, lab/imaging results and precaution s for ED return with pt. Pt agrees with plan for d/c and need for f/u with P CP. Pt was advised to "pump and dump" to avoid breas t feeding while taking medication. Time of Re-Eval 0115 )( Re-Eval Status Improved ED Course Medication(s) Ordered Medication(s) Ordered: Central Nervous System Agents Sig/Farrukh Start time Last Medication Dose Route Stop Time Status Admin Morphine Sulfate 4 MG X1ED STA 02/06 2317 DC IV 02/06 2318 2319 Diagnostic Agents Sig/Farrukh Start time Last Medication Dose Route Stop Time Status Admin Iohexol 500 ML .STK-MED ONE 02/07 0036 DC 02/07 PO 02/077 0036 Iopamidol 100 ML .STK-MED ONE 02/07 0036 DC IV 02/07 0037 0036 Electrolytic, Caloric, And Kong Sig/Farrukh Start time Last Medication Dose Route Stop Time Status Admin Sodium Chloride 1,000 ML X1ED STA 02/07 2236 DC 02/06 IV 02/06 2335 2312 Gastrointestinal Drugs Sig/Farrukh Start time Last Medication Dose Route Stop Time Status Admin Ondansetron HCl 4 MG X1ED STA 02/06 2237 DC SL 02/068 2312 Portions of this section were scribed by Octavia Echavarria on 02/07/19 at 0114 Patient Discharge Departure Vital Signs/Condition Vital Signs First Documented: Result Date Time Pulse Ox 98 02/07 2208 B/P 137/80 02/06 2208 B/P Mean 99 02/07 2208 O2 Delivery Room air 02/07 2208 Temp 37.0 02/07 2208 Pulse 97 02/07 2208 Resp 16 02/07 2208 Last Documented: Result Date Time Pulse Ox 98 02/07 2208 B/P 137/80 02/06 2208 B/P Mean 99 02/07 2208 O2 Delivery Room air 02/07 2208 Temp 37.0 02/07 2208 Pulse 97 02/07 2208 Resp 16 02/07 2208 All vital signs available at the time of this en try have been reviewed. Condition Improved, Stable Clinical Impression Clinical Impression Primary Impression: Abdominal pain Disposition Decision Discharge )( Discharged to Home Yes )( Time 011 )( Date 02/07/19 Discharge/Care Plan Counseled Regarding Diagnosi s, Lab results, Imaging studies, Prescriptions, Need for follow-up, When to return to ED Prescriptions Bentyl Prescriptions Reviewed Risks, Benefits, Alternat jasmine treatment Supervising Physician Note Scribe Statement Octavia Echavarria, 02/06/192235, scribing for a nd in the presence of Winnie Begum NP. Signed By: Octavia Echavarria, 02/06/192235 Provider Scribed Statement I personally performed the s ervices described in this documentation and reviewed the documentation that was dictated to the scrib e(s) in my presence, and it accurately records my words and actions. Winnie Salamanca, 02/07/19 Portions of this section were scribed by Octavia Echvaarria on 02/07/19 at 0114 Violeta Grijalva [birth year]: HPI-Abd Pain F Under 40 General Initial Greet Date/Time 05/12/19 2226 Past Medical History - Adult Allergies Coded Allergies: No Known Drug Intolerances (02/11/19) Converted from Ingredient Allergy: NKA Uncoded Allergies: No Known Contrast Allergies (02/11/19) No Known Drug Allergies (02/11/19) No Known Food Allergies (02/11/19) No Known Other Allergies (02/11/19) Home Medications Active Scripts IBUPROFEN (MOTRIN) 800 MG PO Q8H PRN PRN ABDOMIN AL CRAMPS IBUPROFEN (MOTRIN) 800 MG PO Q8H PRN PRN ABDOMI NAL CRAMPS #45 TABS Prov: 02/02/19 ACETAMINOPHEN/CODEINE (TYLENOL WITH CODE INE #3 300/30 MG) 1 TAB PO Q6H PRN PRN ABDOMINAL CRAMPS ACETAMINOPHEN/CODEINE (TYLENOL WITH CODEINE #3 300/30 MG) 1 TAB PO Q6H PRN PRN ABDOMINAL CRAMPS #28 TABS Prov: 02/02/19 Reported Medications LABETALOL (TRANDATE) 100 MG PO DAILY Discontinued Reported Medications PNV WITH FE FUMARATE/FA () 1 TAB PO GUDELIA Y BUTALBITAL/APAP/CAFF 50/300/40 MG (FIORICET) 1 C AP PO Q4H PRN PRN HEADACHE Physical Exam Vital Signs Vital Signs Interpretation Diagnostics Lab Results Interpretation Results Patient Discharge Departure Vital Signs/Condition Vital Signs Supervising Physician Note MidLv Saw Pt Alone I have reviewed the PA/LAMP SHADE ASSEMBLER's note and plan of car e. I was available for consultation as needed at al l times during the patient's visit in the emergency department. I agree with the clinical impression , plan and disposition. at 0150 Electronically Signed by Violeta Grijalva DO on at 2159 RPT #:[id number] END OF REPORT 2019-02-04 07:27:00-00:00 [facility] ([facility]) OB Postpart Progr Note REPORT#:[id number] REPORT STATUS: Signed DATE:02/04/19 TIME: 726 PATIENT: REYNA EARLY UNIT #: [id number] ROOM/BED: [place] [id number] : 90 AGE: 28 SEX: F ATTEND: Frank Torres MD ADM AUTHOR: Jayme Christianson * ALL edits or amendments must be made on the el [employer]/computer document * Subjective Subjective Comments: AVSS No Complaints Abd Non-tender Fundus Firm Minimal Lochia Incision Healing Well Laboratory Tests 02/01 02/01 02/01 1747 1425 1359 Blood Gas Puncture Site Other Cord Blood pH (7.20 - 7.30) 7.23 Cord Blood PCO2 (45 - 50 MMHG) 59 H Cord Blood PO2 (15 - 25 mmHg) 12 L Cord Blood HCO3 (15 - 25 mmol/L) 25 Cord Base Excess (-5 - 5 mmol/L) -3.0 Cord O2 Saturation (25 - 45 %) 9 L PEEP (cmH2O) Laboratory Tests 02/02 0450 Chemistry Sodium (134 - 147 mEq/L) 140 Potassium (3.4 - 5.0 mEq/L) 3.8 Chloride (100 - 108 mEq/L) 109 H Carbon Dioxide (21 - 33 mEq/L) 24 Anion Gap (0 - 20) 11 BUN (7 - 18 mg/dL) 15 Creatinine (0.6 - 1.3 mg/dL) 0.7 Glomerular Filtr Rate (110 - 120) 99.6 L Glucose (70 - 110 mg/dL) 144 H Calcium (8.0 - 10.5 mg/dL) 8.5 Total Bilirubin (0.0 - 1.0 mg/dL) 0.10 AST (15 - 37 IUnit/L) 19 ALT (15 - 65 IUnit/L) 16 Total Alk Phosphatase (20 - 125 IUnit/L) 95 Total Protein (6.4 - 8.2 g/dL) 6.3 L Albumin (3.4 - 5.0 g/dL) 2.30 L Laboratory Tests 02/03 02/02 0425 0450 Hematology WBC (4.5 - 11.0 x10 3/uL) 10.13 15.65 H RBC (3.54 - 5.02 x10 6/uL) 3.31 L 3.36 L Hgb (11.0 - 15.0 g/dL) 9.9 L 10.0 L Hct (33.0 - 45.0 %) 31.2 L 31.1 L MCV (81.0 - 99.0 fL) 94.3 92.6 MCH (27.0 - 33.0 pg) 29.9 29.8 MCHC (33.0 - 37.0 g/dL) 31.7 L 32.2 L RDW (11.5 - 14.5 %) 14.8 H 14.4 Plt Count (150 - 400 x10 3/uL) 294 287 MPV (7.0 - 9.0 fL) 10.8 H 10.3 H Neut % (Auto) (56.0 - 77.0 %) 60.4 74.6 Lymph % (Auto) (14.0 - 32.0 %) 28.0 14.6 [place] % (Auto) (4.8 - 9.0 %) 9.3 H 9.7 H Eos % (Auto) (0.3 - 3.7 %) 0.7 0.0 L Baso % (Auto) (0.0 - 2.0 %) 0.4 0.1 Neut # (Auto) (2.0 - 7.6 x10 3/uL) 6.12 11.68 H Lymph # (Auto) (1.0 - 3.8 x10 3/uL) 2.84 2.28 [place] # (Auto) (0.1 - 0.8 x10 3/uL) 0.94 H 1.52 H Eos # (Auto) (0.0 - 0.2 x10 3/uL) 0.07 0.00 Baso # (Auto) (0.0 - 0.2 x10 3/uL) 0.04 0.02 Abs Immat Gran (auto) (0.00 - 0.03 x10 3/uL) 0 .12 H 0.15 H Add Manual Diff NO NO Immature Gran % (0.0 - 2.0 %) 1.2 1.0 Nucleated RBC % (0 - 0 %) 0.0 0.0 Nucleated RBCs # (Man) (0.0 - 0.1 x10 3/uL) 0.0 0 0.00 Active Meds + DC'd Last 24 Hrs Pneumococcal Polyvalent Vaccine 0.5 ML ASDIR IM Labetalol HCl 100 MG BID PO Ferrous Sulfate 325 MG DAILY PO Docusate Sodium 100 MG BID PO Sodium Chloride 0 ASDIR PRN IV Sodium Chloride 0 ASDIR PRN IV Diphenhydramine HCl 25 MG Q6H PRN PRN PO Diphtheria/Tetanus/Acell Pertussis 0.5 ML ASDIR IM Guaifenesin/Dextromethorphan 10 ML Q4H PRN PRN P O Hydrocodone Bitart/Acetaminophen 1 TAB Q4H PRN P RN PO Hydrocodone Bitart/Acetaminophen 2 TAB Q4H PRN P RN PO Hydromorphone HCl 0.5 MG Q4H PRN PRN IV Ibuprofen 800 MG Q8H PRN PRN PO Magnesium Hydroxide 30 ML BEDTIME PRN PRN PO Measles/Mumps/Rubella Vaccine Live 1 VIAL ASDIR SUBQ Methylergonovine Maleate 0.2 MG Q4H PRN PRN PO Ondansetron HCl 4 MG Q4H PRN PRN IV Ondansetron HCl 4 MG Q8H PRN PRN PO Polyethylene Glycol 17 GM DAILY PRN PRN PO Simethicone 80 MG Q2H PRN PRN PO Sodium Biphosphate/Sodium Phosphate 1 ENEMA GUDELIA Y PRN PRN RECTAL (CKD) Zolpidem Tartrate 5 MG BEDTIME PRN PRN PO Vital Signs: Date Time Temp Pulse Resp B/P B/P Pulse O2 O2 F low FiO2 Mean Ox Delivery Rate 02/03 2049 98.0 76 16 137/77 02/03 1549 98.4 78 16 130/60 02/03 1030 97.5 81 17 135/69 Routine POD 3 from CS DC Home F/U 1 week See Orders at 0728 RPT #:[id number] END OF REPORT 2019-02-03 12:49:00-00:00 [facility] ([facility]) OB Postpart Progr Note REPORT#:[id number] REPORT STATUS: Signed DATE:02/03/19 TIME: 1249 PATIENT: REYNA EARLY UNIT #: [id number] ROOM/BED: [place] [id number] : 90 AGE: 28 SEX: F ATTEND: Frank Torres MD ADM AUTHOR: Gabriel Torres MD * ALL edits or amendments must be made on the el [employer]/computer document * Subjective Subjective EGA weeks/days: 33+6 Status/Day: post operative Objective General VS: Vital Signs: Date Time Temp Pulse Resp B/P B/P Pulse O2 O2 F low FiO2 Mean Ox Delivery Rate 02/03 1030 36.4 81 17 135/69 02/03 0422 36.4 75 16 115/63 02/02 2130 36.8 81 18 116/76 02/02 1635 36.7 91 18 118/71 Physical Exam Cardiac: normal sinus rhythm Lungs: clear to auscultation Neuro: Exam: alert, oriented x3, normal speech Abdomen: soft, no abnormal tenderness, no guardi ng, no rebound tenderness, normoactive bowel sounds Incision site: Wound Vac in place Uterus: non-tender Fundus: non-tender Lochia: normal Lacerations: Perineal laceration: none Episiotomy or laceration: none Vulva/Perineum: normal CVA tenderness: none Lower extremities: Edema: trace Result Findings/Data: Laboratory Tests: 02/03 425 Hematology WBC (4.5 - 11.0 x10 3/uL) 10.13 RBC (3.54 - 5.02 x10 6/uL) 3.31 L Hgb (11.0 - 15.0 g/dL) 9.9 L Hct (33.0 - 45.0 %) 31.2 L MCV (81.0 - 99.0 fL) 94.3 MCH (27.0 - 33.0 pg) 29.9 MCHC (33.0 - 37.0 g/dL) 31.7 L RDW (11.5 - 14.5 %) 14.8 H Plt Count (150 - 400 x10 3/uL) 294 MPV (7.0 - 9.0 fL) 10.8 H Neut % (Auto) (56.0 - 77.0 %) 60.4 Lymph % (Auto) (14.0 - 32.0 %) 28.0 [place] % (Auto) (4.8 - 9.0 %) 9.3 H Eos % (Auto) (0.3 - 3.7 %) 0.7 Baso % (Auto) (0.0 - 2.0 %) 0.4 Neut # (Auto) (2.0 - 7.6 x10 3/uL) 6.12 Lymph # (Auto) (1.0 - 3.8 x10 3/uL) 2.84 [place] # (Auto) (0.1 - 0.8 x10 3/uL) 0.94 H Eos # (Auto) (0.0 - 0.2 x10 3/uL) 0.07 Baso # (Auto) (0.0 - 0.2 x10 3/uL) 0.04 Abs Immat Gran (auto) (0.00 - 0.03 x10 3/uL) 0 .12 H Add Manual Diff NO Immature Gran % (0.0 - 2.0 %) 1.2 Nucleated RBC % (0 - 0 %) 0.0 Nucleated RBCs # (Man) (0.0 - 0.1 x10 3/uL) 0.0 0 Diagnosis, Assessment Plan Diagnosis, Assessment Plan Assessment: pre-eclampsia (s/p Mag ) Plan: routine care, Diet as tolerated . Consultation(s): Consultation: anesthesia at 1251 RPT #:[id number] END OF REPORT 2019-02-02 16:04:00-00:00 [facility] ([facility]) OB Disch REPORT#:[id number] REPORT STATUS: Signed DATE:02/02/19 TIME: 1604 PATIENT: REYNA EARLY UNIT #: [id number] ROOM/BED: [place] [id number] : 90 AGE: 28 SEX: F ATTEND: Frank Torres MD ADM AUTHOR: Gabriel Torres MD * ALL edits or amendments must be made on the [employer]/computer document * Subjective Subjective Admission EGA (wks/days): 33+6 Weeks EGA at delivery (wks/days): 33+6 Status/day: post operative Objective General VS: Vital Signs Date Temp Pulse Resp B/P B/P Mean Pulse Ox FiO2 02/01-02/02 36.5-37.1 70-117 16 115-191/56-97 80 .0-117.0 77-100 Last Documented: Result Date Time Pulse Ox 92 02/02 1027 Pulse 91 02/02 1027 B/P Mean 90.0 02/02 1019 B/P 125/66 02/02 1019 Temp 36.5 02/02 0800 Resp 16 02/03 800 Physical Exam Cardiac: normal rhythm, no clinically sig murmur , no gallops, no rubs Lungs: clear to auscultation Neuro: Exam: alert, oriented x3, normal speech Abdomen: post gravid, soft, no abnormal tenderne ss, no guarding, no rebound tenderness, normoactive bowel sounds, Obese Incision site: well approximated edges, Wound Va c Uterus: non-tender Fundus: non-tender Lochia: normal Episiotomy or laceration: none Vulva/Perineum: normal, no hematoma Results Findings/Data: Laboratory Tests: 02/02 02/01 02/01 02/01 0450 1747 1425 1359 Blood Gas Puncture Site Other Cord Blood pH (7.20 - 7.30) 7.23 Cord Blood PCO2 (45 - 50 MMHG) 59 H Cord Blood PO2 (15 - 25 mmHg) 12 L Cord Blood HCO3 (15 - 25 mmol/L) 25 Cord Base Excess (-5 - 5 mmol/L) -3.0 Cord O2 Saturation (25 - 45 %) 9 L PEEP (cmH2O) Chemistry Sodium (134 - 147 mEq/L) 140 Potassium (3.4 - 5.0 mEq/L) 3.8 Chloride (100 - 108 mEq/L) 109 H Carbon Dioxide (21 - 33 mEq/L) 24 Anion Gap (0 - 20) 11 BUN (7 - 18 mg/dL) 15 Creatinine (0.6 - 1.3 mg/dL) 0.7 Glomerular Filtr Rate (110 - 120) 99.6 L Glucose (70 - 110 mg/dL) 144 H Calcium (8.0 - 10.5 mg/dL) 8.5 Total Bilirubin (0.0 - 1.0 mg/dL) 0.10 AST (15 - 37 IUnit/L) 19 ALT (15 - 65 IUnit/L) 16 Total Alk Phosphatase (20 - 125 IUnit/L) 95 Total Protein (6.4 - 8.2 g/dL) 6.3 L Albumin (3.4 - 5.0 g/dL) 2.30 L Hematology WBC (4.5 - 11.0 x10 3/uL) 15.65 H RBC (3.54 - 5.02 x10 6/uL) 3.36 L Hgb (11.0 - 15.0 g/dL) 10.0 L Hct (33.0 - 45.0 %) 31.1 L MCV (81.0 - 99.0 fL) 92.6 MCH (27.0 - 33.0 pg) 29.8 MCHC (33.0 - 37.0 g/dL) 32.2 L RDW (11.5 - 14.5 %) 14.4 Plt Count (150 - 400 x10 3/uL) 287 MPV (7.0 - 9.0 fL) 10.3 H Neut % (Auto) (56.0 - 77.0 %) 74.6 Lymph % (Auto) (14.0 - 32.0 %) 14.6 [place] % (Auto) (4.8 - 9.0 %) 9.7 H Eos % (Auto) (0.3 - 3.7 %) 0.0 L Baso % (Auto) (0.0 - 2.0 %) 0.1 Neut # (Auto) (2.0 - 7.6 x10 3/uL) 11.68 H Lymph # (Auto) (1.0 - 3.8 x10 3/uL) 2.28 [place] # (Auto) (0.1 - 0.8 x10 3/uL) 1.52 H Eos # (Auto) (0.0 - 0.2 x10 3/uL) 0.00 Baso # (Auto) (0.0 - 0.2 x10 3/uL) 0.02 Abs Immat Gran (auto) (0.00 - 0.03 x10 3/uL) 0. 15 H Add Manual Diff NO Immature Gran % (0.0 - 2.0 %) 1.0 Nucleated RBC % (0 - 0 %) 0.0 Nucleated RBCs # (Man) (0.0 - 0.1 x10 3/uL) 0.0 0 05/06 1610 Chemistry Sodium (134 - 147 mEq/L) 140 Potassium (3.4 - 5.0 mEq/L) 3.8 Chloride (100 - 108 mEq/L) 107 Carbon Dioxide (21 - 33 mEq/L) 25 Anion Gap (0 - 20) 12 BUN (7 - 18 mg/dL) 6 L Creatinine (0.6 - 1.3 mg/dL) 0.6 Glomerular Filtr Rate (110 - 120) 119.0 Glucose (70 - 110 mg/dL) 103 Uric Acid (2.6 - 7.2 mg/dL) 4.6 Calcium (8.0 - 10.5 mg/dL) 8.9 Total Bilirubin (0.0 - 1.0 mg/dL) 0.20 AST (15 - 37 IUnit/L) 24 ALT (15 - 65 IUnit/L) 19 Total Alk Phosphatase (20 - 125 IUnit/L) 107 Lactate Dehydrogenase (84 - 246 IUnits/L) 154 Total Protein (6.4 - 8.2 g/dL) 6.7 Albumin (3.4 - 5.0 g/dL) 2.50 L Hematology WBC (4.5 - 11.0 x10 3/uL) 11.74 H RBC (3.54 - 5.02 x10 6/uL) 3.70 Hgb (11.0 - 15.0 g/dL) 11.2 Hct (33.0 - 45.0 %) 33.7 MCV (81.0 - 99.0 fL) 91.1 MCH (27.0 - 33.0 pg) 30.3 MCHC (33.0 - 37.0 g/dL) 33.2 RDW (11.5 - 14.5 %) 14.1 Plt Count (150 - 400 x10 3/uL) 310 MPV (7.0 - 9.0 fL) 10.4 H Neut % (Auto) (56.0 - 77.0 %) 72.3 Lymph % (Auto) (14.0 - 32.0 %) 18.8 [place] % (Auto) (4.8 - 9.0 %) 6.9 Eos % (Auto) (0.3 - 3.7 %) 0.9 Baso % (Auto) (0.0 - 2.0 %) 0.2 Neut # (Auto) (2.0 - 7.6 x10 3/uL) 8.49 H Lymph # (Auto) (1.0 - 3.8 x10 3/uL) 2.21 [place] # (Auto) (0.1 - 0.8 x10 3/uL) 0.81 H Eos # (Auto) (0.0 - 0.2 x10 3/uL) 0.10 Baso # (Auto) (0.0 - 0.2 x10 3/uL) 0.02 Abs Immat Gran (auto) (0.00 - 0.03 x10 3/uL) 0. 11 H Add Manual Diff NO Immature Gran % (0.0 - 2.0 %) 0.9 Nucleated RBC % (0 - 0 %) 0.0 Nucleated RBCs # (Man) (0.0 - 0.1 x10 3/uL) 0.0 0 Discharge Summary Discharge Summary Date of admission: Date of admission: 02/01/19 Hospital course: repeat shanell anaya admit, epidural anesthesia, spinal anesthesia, nml postop/postpart care Baby A: status: live born Gender: male 1 minute: 8 5 minutes: 9 Plan: routine care, discharge today Instructions: routine instr sheet given, instr a nd warnings rev'd, specific instr as noted Diet: regular Activity and restrictions: up ad arya, may shower , pelvic rest, no intercourse for 6 wks, no driving Contraception discussed: abstinence for 4-6 week s, will discuss at PP visit Discharge meds: Stop taking the following medications: LABETALOL (TRANDATE) 300 MG TAB ORAL THREE TIMES A DAY. Continue taking these medications: PNV WITH FE FUMARATE/FA () 1 EACH TAB 1 TABLET ORAL DAILY. BUTALBITAL/APAP/CAFF 50/300/40 MG (FIORICET) 1 C AP CAP 1 CAPSULE ORAL EVERY 4 HOURS NEEDED. as need ed for HEADACHE Start taking the following new medications: IBUPROFEN (MOTRIN) 800 MG TAB 800 MILLIGRAM ORAL EVERY 8 HR NEEDED. as nee ded for ABDOMINAL CRAMPS Qty = 45 No Refills ACETAMINOPHEN/CODEINE (TYLENOL WITH CODEINE #3 3 00/30 MG) 1 TAB TAB 1 TABLET ORAL EVERY 6 HOURS NEEDED. as neede d for ABDOMINAL CRAMPS Qty = 28 No Refills Prescriptions: on chart Consultation(s): Consultation performed: anesthesia Discharge condition: stable Discharge to: home Follow up in: 1 week at 0924 RPT #:[id number] END OF REPORT 2019-02-02 15:16:00-00:00 [facility] ([facility]) OB Postpart Progr Note REPORT#:[id number] REPORT STATUS: Signed DATE:02/02/19 TIME: 1516 PATIENT: REYNA EARLY UNIT #: [id number] ROOM/BED: [place] [address] : 90 AGE: 28 SEX: F ATTEND: Frank Torres MD ADM AUTHOR: Gabriel Torres MD * ALL edits or amendments must be made on the [employer] document * Subjective Subjective EGA weeks/days: 33+6 Status/Day: post operative Objective General VS: Vital Signs: Date Time Temp Pulse Resp B/P B/P Pulse O2 O2 F low FiO2 Mean Ox Delivery Rate 05/08 1027 91 92 05/08 1026 86 96 05/08 1021 91 87 05/08 1019 90.0 05/08 1019 83 125/66 05/08 1000 99 79 05/08 0958 92 88 05/08 0953 117 82 05/08 0943 83 93 05/08 0938 86 96 05/08 0934 85 77 05/08 0933 91 95 05/08 0928 83 97 05/08 0923 86 93 05/08 0918 101 98 05/08 0913 88 97 05/08 0908 87 95 05/08 0903 99 98 05/08 0858 102 94 05/08 0853 85 92 05/08 0848 86 95 05/08 0847 87 82 05/08 0843 78 97 05/08 0836 82 97 05/08 0835 84 81 05/08 0830 103 90 05/08 0823 117 90 05/08 0818 85 93 05/08 0817 113 78 05/08 0812 113 84 05/08 0810 84 78 05/08 0807 82 95 05/08 0802 80 85 05/08 0800 36.5 16 05/08 0757 86 96 05/08 0752 81 100 05/08 0747 83 97 05/08 0742 83 96 05/08 0737 92 99 05/08 0732 82 92 05/08 0727 88.0 05/08 0727 83 126/61 98 05/08 0722 82 95 05/08 0717 83 96 05/08 0712 77 92 05/08 0707 81 96 05/08 0702 80 93 05/08 0657 88 85 05/08 0652 85 95 05/08 0647 82 93 05/08 0642 79 95 05/08 0640 90 82 05/08 0637 89 95 05/08 0635 98 84 05/08 0632 91 92 05/08 0627 83 92 05/08 0622 82 98 05/08 0617 86 95 05/08 0613 81 78 05/08 0612 83 95 05/08 0607 84 94 05/08 0602 79 94 05/08 0557 83.0 05/08 0557 79 122/60 94 05/08 0552 86 92 05/08 0547 82 93 05/08 0542 82 92 05/08 0537 82 91 05/08 0532 84 96 05/08 0527 82 95 05/08 0522 81 95 05/08 0517 79 94 05/08 0512 88 93 05/08 0507 83 95 05/08 0502 78 99 05/08 0457 81 93 05/08 0452 74 95 05/08 0447 78 96 05/08 0445 82.0 05/08 0445 77 115/62 05/08 0442 80 96 05/08 0437 83 97 05/08 0432 92 95 05/08 0427 95 96 05/08 0422 79 97 05/08 0417 81 96 05/08 0412 78 97 05/08 0407 76 94 05/08 0402 75 97 05/08 0357 70 96 05/08 0352 78 96 05/08 0347 78 96 05/08 0342 82 96 05/08 0337 82 95 05/08 0332 84 95 05/08 0327 81 98 05/08 0322 83 96 05/08 0317 84 95 05/08 0312 86 94 05/08 0307 36.8 05/08 0307 85.0 05/08 0307 90 128/59 97 05/08 0302 81 94 05/08 0257 74 92 05/08 0252 76 93 05/08 0247 78 93 05/08 0242 77 93 05/08 0237 77 93 05/08 0232 77 93 05/08 0227 80 95 05/08 0222 83 93 05/08 0217 87 94 05/08 0212 96 84 05/08 0207 83 94 05/08 0204 84.0 05/08 0204 82 127/58 05/08 0202 87 92 05/08 0157 77 91 05/08 0152 78 91 05/08 0147 85 93 05/08 0142 82 91 05/08 0137 83 92 05/08 0132 80 92 05/08 0127 84 93 05/08 0122 83 90 05/08 0117 83 91 05/08 0112 86 93 05/08 0107 88 93 05/08 0102 83.0 05/08 0102 91 128/58 94 05/07 2357 86 95 05/07 2357 86 95 05/07 2354 91.0 05/07 2354 91.0 05/07 2354 85 138/63 05/07 2354 85 138/63 05/07 2352 117.0 05/07 2352 117.0 05/07 2352 89 191/81 94 05/07 2352 89 191/81 94 05/07 2347 85 94 05/07 2347 85 94 05/07 2342 89 94 05/07 2342 89 94 05/07 2337 88 95 05/07 2337 88 95 05/07 2332 90 95 05/07 2332 90 95 05/07 2327 88 94 05/07 2327 88 94 05/07 2322 98 94 05/07 2322 98 94 05/07 2317 101 97 05/07 2317 101 97 05/07 2312 90 94 05/07 2312 90 94 05/07 2308 94.0 05/07 2308 94.0 05/07 2308 93 139/65 05/07 2308 93 139/65 05/07 2307 91 94 05/07 2307 91 94 05/07 2302 93 95 05/07 2302 93 95 05/07 2257 91 95 05/07 2252 93 95 05/07 2247 93 95 05/07 2242 94 96 05/07 2238 87.0 05/07 2238 96 135/60 05/07 2237 97 94 05/07 2232 103 94 05/07 2227 97 94 05/07 2222 95 94 05/07 2217 94 94 05/07 2212 97 95 05/07 2208 96.0 05/07 2208 99 135/70 05/07 2207 97 94 05/07 2202 98 95 05/07 2157 96 95 05/07 2152 98 97 05/07 2147 100 93 05/07 2142 95 88 05/07 2141 100 88 05/07 2136 125/76 05/07 2130 92 89 05/07 2127 95 93 05/07 2113 95 89 05/07 2112 96 91 05/07 2107 93 93 05/07 2102 90 96 05/07 7 94 98 05/07 2 93 97 05/07 7 96 97 05/07 3 100.0 05/07 3 96 145/75 05/07 2041 95 96 05/07 7 93 98 05/07 2031 98 97 05/07 8 85.0 05/07 8 100 125/59 05/07 7 94 96 05/07 2021 98 97 05/07 2016 95 97 05/07 2012 88.0 05/07 2012 92 133/61 05/07 2011 98 97 05/07 2006 106 96 05/07 2001 98 97 05/07 2000 99 84 05/07 1958 112.0 05/07 1958 95 140/97 05/07 1957 96 97 05/07 1952 104 98 05/07 1947 90 96 05/07 1946 94.0 05/07 1946 88 140/65 05/07 1944 92 84 05/07 1943 37.1 05/07 1943 115.0 05/07 1943 99 164/88 05/07 1942 97 97 05/07 1938 101 93 05/07 1937 99 98 05/07 1932 91 98 05/07 1928 96.0 05/07 1928 94 154/67 94 05/07 1927 94 94 05/07 1917 92 97 05/07 1913 90.0 05/07 1913 96 143/66 05/07 1912 92 97 05/07 1907 89 98 05/07 1902 99 98 05/07 1858 83.0 05/07 1858 93 126/58 05/07 1857 96 97 05/07 1852 95 97 05/07 1847 95 92 05/07 1846 98 88 05/07 1843 81.0 05/07 1843 98 117/56 05/07 1842 102 88 05/07 1839 84 94 05/07 1837 86 92 05/07 1832 89 95 05/07 1830 90 93 05/07 1828 86.0 05/07 1828 92 119/66 05/07 1827 87 95 05/07 1825 83 93 05/07 1822 84 92 05/07 1818 84 94 05/07 1817 92 97 05/07 1813 89.0 05/07 1813 86 124/70 05/07 1812 114 89 05/07 1807 93 93 05/07 1806 91 90 05/07 1800 86 94 05/07 1758 87.0 05/07 1758 83 128/65 05/07 1755 85 95 05/07 1753 86 94 05/07 1750 90 97 05/07 1745 76 92 05/07 1744 88 94 05/07 1743 84.0 05/07 1743 90 121/60 05/07 1740 87 94 05/07 1737 85 93 05/07 1735 87 92 05/07 1730 91 95 05/07 1729 88 94 05/07 1728 85.0 05/07 1728 90 121/63 05/07 1725 86 95 05/07 1722 79 94 05/07 1720 87 96 05/07 1715 81 97 05/07 1713 86.0 05/07 1713 93 124/63 05/07 1710 87 95 05/07 1707 89 93 05/07 1705 83 96 05/07 1700 80 97 05/07 1658 85.0 05/07 1658 81 125/59 05/07 1655 87 93 05/07 1651 86 94 05/07 1650 86 94 05/07 1645 80 83 05/07 1643 80.0 05/07 1643 81 118/58 05/07 1640 80 96 05/07 1638 91 93 05/07 1635 84 96 05/07 1630 78 94 05/07 1628 93.0 05/07 1628 76 126/69 05/07 1625 81 96 05/07 1623 79 89 05/07 1620 84 95 05/07 1619 92.0 05/07 1619 71 123/70 05/07 1615 79 95 05/07 1614 78 94 05/07 1610 80 96 05/07 1609 86 94 05/07 1605 80 96 05/07 1600 87 97 05/07 1558 59.0 05/07 1558 78 100/41 05/07 1555 86 95 05/07 1554 83 92 05/07 1550 83 96 05/07 1548 80 93 05/07 1545 82 95 05/07 1543 68.0 05/07 1543 88 90/50 05/07 1542 88 91 05/07 1540 78 97 05/07 1537 97 93 05/07 1535 85 97 05/07 1531 73.0 05/07 1531 83 98/52 05/07 1530 80 97 05/07 1528 86 86 05/07 1525 86 94 05/07 1521 90 90 05/07 1520 84 98 Physical Exam Cardiac: normal sinus rhythm Lungs: clear to auscultation Neuro: Exam: alert, oriented x3, normal speech Abdomen: soft, no abnormal tenderness, no guardi ng, no rebound tenderness, normoactive bowel sounds Incision site: Wound Vac in place Uterus: non-tender Fundus: non-tender Lochia: normal Lacerations: Perineal laceration: none Episiotomy or laceration: none Vulva/Perineum: normal CVA tenderness: none Lower extremities: Edema: trace Result Findings/Data: Laboratory Tests: 02/02 02/01 0450 1747 Blood Gas PEEP (cmH2O) Chemistry Sodium (134 - 147 mEq/L) 140 Potassium (3.4 - 5.0 mEq/L) 3.8 Chloride (100 - 108 mEq/L) 109 H Carbon Dioxide (21 - 33 mEq/L) 24 Anion Gap (0 - 20) 11 BUN (7 - 18 mg/dL) 15 Creatinine (0.6 - 1.3 mg/dL) 0.7 Glomerular Filtr Rate (110 - 120) 99.6 L Glucose (70 - 110 mg/dL) 144 H Calcium (8.0 - 10.5 mg/dL) 8.5 Total Bilirubin (0.0 - 1.0 mg/dL) 0.10 AST (15 - 37 IUnit/L) 19 ALT (15 - 65 IUnit/L) 16 Total Alk Phosphatase (20 - 125 IUnit/L) 95 Total Protein (6.4 - 8.2 g/dL) 6.3 L Albumin (3.4 - 5.0 g/dL) 2.30 L Hematology WBC (4.5 - 11.0 x10 3/uL) 15.65 H RBC (3.54 - 5.02 x10 6/uL) 3.36 L Hgb (11.0 - 15.0 g/dL) 10.0 L Hct (33.0 - 45.0 %) 31.1 L MCV (81.0 - 99.0 fL) 92.6 MCH (27.0 - 33.0 pg) 29.8 MCHC (33.0 - 37.0 g/dL) 32.2 L RDW (11.5 - 14.5 %) 14.4 Plt Count (150 - 400 x10 3/uL) 287 MPV (7.0 - 9.0 fL) 10.3 H Neut % (Auto) (56.0 - 77.0 %) 74.6 Lymph % (Auto) (14.0 - 32.0 %) 14.6 [place] % (Auto) (4.8 - 9.0 %) 9.7 H Eos % (Auto) (0.3 - 3.7 %) 0.0 L Baso % (Auto) (0.0 - 2.0 %) 0.1 Neut # (Auto) (2.0 - 7.6 x10 3/uL) 11.68 H Lymph # (Auto) (1.0 - 3.8 x10 3/uL) 2.28 [place] # (Auto) (0.1 - 0.8 x10 3/uL) 1.52 H Eos # (Auto) (0.0 - 0.2 x10 3/uL) 0.00 Baso # (Auto) (0.0 - 0.2 x10 3/uL) 0.02 Abs Immat Gran (auto) (0.00 - 0.03 x10 3/uL) 0. 15 H Add Manual Diff NO Immature Gran % (0.0 - 2.0 %) 1.0 Nucleated RBC % (0 - 0 %) 0.0 Nucleated RBCs # (Man) (0.0 - 0.1 x10 3/uL) 0.0 0 Diagnosis, Assessment Plan Diagnosis, Assessment Plan Assessment: pre-eclampsia (s/p Mag ) Plan: routine care, d/c Mag LabetaloL 100mg BID D/C STEWARD D/C EPIDURAL Diet as tolerated. Consultation(s): Consultation: anesthesia Plan discussed with: nurse at 1521 RPT #:[id number] END OF REPORT 2019-02-02 06:50:00-00:00 [facility] ([facility]) Pain Management Progress Note REPORT#:[id number] REPORT STATUS: Signed DATE:02/02/19 TIME: 649 PATIENT: REYNA EARLY UNIT #: [id number] ROOM/BED: [place] [address] : 90 AGE: 28 SEX: F ATTEND: Frank Torres MD ADM AUTHOR: Mona Woodward MD * ALL edits or amendments must be made on the [employer] document * Subjective Comments: Pain Management Rounds: Patient seen and examined Epidural in place and working well No side effects noted Anesthesiology will continue to follow. Objective Physical Exam VS/I O: Last Documented: Result Date Time B/P Mean 83.0 02/02 0557 Pulse Ox 94 02/02 0557 B/P 122/60 02/02 0557 Pulse 79 02/02 0557 Temp 36.8 02/02 0307 Resp 16 02/01 1425 24 hour I O ending at 0700: 08 0700 05/07 1900 Intake Total 2375 Output Total 900 Balance 1475 Intake, Other 2375 Output, Other 900 General appearance: alert at 0650 RPT #:[id number] END OF REPORT 2019-02-02 06:37:00-00:00 [id number] [address] PATIENT NAME: REYNA EARLY ADMIT MARLENE E: 02/01/19 ACCOUNT NO: [id number] ROOM NO: [facility] AGE: 28 REPORT TYPE: OPERATIVE REPORT SEX: F ADMITTING PHYSICIAN:Gabriel Torres MD ATTENDING PHYSICIAN:Gabriel Torres MD OPERATION DATE: 02/01/2019 START TIME: 13:26 p.m. PROCEDURES: Repeat low transverse secti on and bilateral tubal ligation. SURGEON: Gabriel Torres MD [employer] RESOURCES ASSISTANT: MICHELLE Sahu and Emma Quiroz, licensed hand frame surgical elastic knitter. PREOPERATIVE DIAGNOSES: 1. Single intrauterine at 33+6 weeks g estational age with superimposed preeclampsia and chronic hypertensi on. 2. Previous section x3. 3. Morbid obesity with a body mass index of grea ter than 54, multiparity, desire tubal ligation. POSTOPERATIVE DIAGNOSES: 1. Single intrauterine at 33+6 weeks g estational age with superimposed preeclampsia and chronic hypertensi on. 2. Previous section x3. 3. Morbid obesity with a body mass index of grea ter than 54, multiparity, desire tubal ligation. ANESTHESIA: Epidural anesthesia. ESTIMATED BLOOD LOSS: 600 mL. IV FLUIDS: 1500 mL. URINE OUTPUT: 20 mL. SPECIMEN REMOVED: Cord placenta membranes and co mplete left and right tubes. COMPLICATIONS: None. FINDINGS: Viable male weighing 2840 gm, Apgars 8 and 9, delivered atraumatically from cephalic presentation. Tubes and ovaries grossly within normal limits bilaterally. DESCRIPTION OF PROCEDURE: The patient was taken to the operating room where epidural anesthesia was applied and foun d to be adequate. She was then prepped PATIENT NAME: REYNA EARLY and draped in normal sterile fashion, placed in dorsal supine position. Pfannenstiel skin incision was then made with a scalpel. Incision was then carried down to the underlying layer of fascia w ith the scalpel. Fascia was incised in the midline and incision extended lat erally bluntly. The superior edge of the fascial incision was then grasped wi th Don clamps, elevated, tented up, and the rectus muscles dissected with the Ferro scissors. Rectus muscle was then in the midline and ent ered sharply with the knife. The rectus muscles were inferiorly and superiorly bluntly. The peritoneum was then entered sharply with the Met zenbaum scissors. An incision was then extended inferiorly and superiorly blun tly. The Neal retractor was then inserted in the lower uterine segme nt. The lower uterine segment was then incised in a transverse fashion with the scalpel . Incision was extended laterally bluntly. was then delivered atr aumatically. Nose and mouth were suctioned with a bulb suction and c ord was clamped and cut. handed to the waiting nurse. Cord blood obtained. Place nta was then delivered with assistance. Uterus was then exteriorized and zulema ared of all clot and debris. The uterine incision was then repaired with Stra tafix suture in running nylon fashion. Good hemostasis noted. Non-hemostatic a reas were reinforced with 0 Vicryl [id number] sutures. Attention was th en turned to the tubes, which was then grasped and the fimbriated end was then grasped with the pickups and using the LigaSure, a salpingectomy was then per formed bilaterally. Good hemostasis noted. The uterus was returned to the abdomen. Interceed placed anterior to the lower uterine segment incision. The rectus muscles were then reapproximated. The rectus muscles and peritoneu m complex was then reapproximated in the midline with 0 Vicryl nam ress stitch technique. Fascia was approximated with looped PDS. The subcutaneous tissue was approximated with 0 Vicryl in running nonlocked fashion. Skin was closed with 4-0 Monocryl subcuticular closure. The patient tolerated the procedure well. Sponge, lap, needles, and instrument count were correct x2. T he patient was taken to the recovery room, awake and in stable condition. Dictated By: Gabriel Torres MD WT: OP:G.GLENNA/BHAVESH/NTS Conf#: [id number]#: [id number] Authenticated by Gabriel Torres MD On 01/27 12:48:08 PM Electronically Signed by Gabriel Torres MD o n 02/15/19 at 1248 PATIENT NAME: REYNA EARLY 2019-02-01 15:06:00-00:00 [facility] ([facility]) OB Delivery Note REPORT#:[id number] REPORT STATUS: Signed DATE:02/01/19 TIME: 1506 PATIENT: REYNA EARLY UNIT #: [id number] ROOM/BED: [place] [address] : 90 AGE: 28 SEX: F ATTEND: Frank Torres MD ADM AUTHOR: Gabriel Torres MD * ALL edits or amendments must be made on the el ectronic/computer document * OB Delivery Nursing Documentation Review Nursing data: EGA (weeks/days): 34.5 EGA at admit (weeks): EGA at delivery (weeks): 34 Steroids prior to arrival: Antibiotic prophylaxis given: [place] evaluation at delivery: Delivery date A: Delivery time infant A: Birthweight (gm) A: 2840 Pre-delivery [place] evaluation at delivery: bench technician, n eonatal team Admission EGA (wks/days): 33+6 Weeks EGA at delivery (wks/days): 33+6 Steroids Prior to Delivery Steroids prior to delivery: x 2 doses of dexamet hasone General VS: Last Documented: Result Date Time B/P Mean 67.0 02/01 1459 B/P 97/46 02/01 1459 Pulse 93 02/01 1459 Pulse Ox 97 02/01 1455 Temp 36.4 02/01 1425 Resp 16 02/01 1425 Membranes: AROM ROM date: 02/01/19 ROM time: 1331 Amniotic fluid: clear Baby A Information Baby A information Delivery date: 02/01/19 Delivery time: 1331 status: live born Wt of baby (grams): 2840 Gender: male 1 minute: 8 5 minutes: 9 Presentation: vertex ABG details Baby A Cord blood gases: collected Cord pH (arterial): 7.23 Base excess-arterial: -3.0 Nuchal cord Baby A Nuchal cord: no Delivery section Abdominal incision: Pfannenstiel Primary indication: previous , abnl an tepartum testing Priority: indicated (add on) : : contraindicated, : declined, VB AC:attempt/unsuccessful Antibiotic prior to incision: 1 dose (3g Ancef) )(SCDs applied activated: Yes Incision: low transverse Hemorrhage: no Uterine scar: intact Consent: indication discussed, questions answer ed, pt consent to op delivery Mother's condition: mother stable 's condition: to NICU Op/Inv Proc Note - Brief )(Start date: 02/01/19 )(Start time: 1326 )( Procedure(s) performed: repeat low tr ansverse c/s, bilateral tubal ligation )( Primary Surgeon: Dr Torres )( Insurance Clerk(s): Dr Santos Carter. LSA )( Pre-procedure diagnosis: SIUP @ 33+6 weeks GA with; 1. Superimposed pre-eclampsia on c-HTN 2. Previous c/s x 3 3. Morbid Obesity BMI> 50. 4. Multiparity Desires tubal ligation )( Post-procedure diagnosis: SIUP @ 33+6 weeks GA with; 1. Superimposed pre-eclampsia on c-HTN 2. Previous c/s x 3 3. Morbid Obesity BMI> 50. 4. Multiparity Desires tubal ligation )(Technique/Procedure: SEE OP NOTE Anesthesia: epidural anesthesia )( Estimated blood loss (ml): 600 )( Specimen removed/altered: Cord, placenta and membranes, complete left and right tubes segment. )( Complications: none Drain(s): Steward Tube(s): none Implant(s): none Fluids: 1500 Urine output: 20 )( Finding(s): viable male weighing 2840g, apgars 8/9 d elivered atraumatically from cephalic presentation. Tubes and ovaries grossly within normal limits bilaterally. Condition: stable Dictation number: [id number] at 0638 RPT #:[id number] END OF REPORT 2019-02-01 14:21:00-00:00 [facility] ([facility]) Post Anesthesia Evaluation REPORT#:[id number] REPORT STATUS: Signed DATE:02/01/19 TIME: 1421 PATIENT: REYNA EARLY UNIT #: [id number] ROOM/BED: 001-1 : 90 AGE: 28 SEX: F ATTEND: Frank Torres MD ADM AUTHOR: Beata Harper MD * ALL edits or amendments must be made on the el ectronic/computer document * Post Anesthesia Evaluation Anes. changes from pre-op eval Level of consciousness: patient awake, participa te in this eval. Vital signs: Vital Signs: Date Time Temp Pulse Resp B/P B/P Pulse O2 O2 F low FiO2 Mean Ox Delivery Rate 02/02 0855 78.0 05/ 0855 82 118/54 05/07 0745 114.0 05/07 0745 111 172/83 05/07 0633 97.0 05/07 0633 81 145/69 05/07 0545 105.0 05/07 0545 101 180/73 05/07 0440 85.0 05/07 0440 90 122/59 05/07 0430 121.0 05/07 0430 100 178/88 05/07 0329 111.0 05/07 0329 104 135/97 05/07 0248 86.0 05/07 0248 85 127/60 05/07 0243 121.0 05/07 0243 105 166/95 05/07 0238 109.0 05/07 0238 90 149/92 05/07 0130 89.0 05/07 0130 109 128/68 05/06 2330 90.0 05/06 2330 90.0 05/06 2330 105 123/74 05/06 2330 105 123/74 05/06 2302 37.0 05/06 2230 102.0 05/06 2230 85 152/71 05/06 2129 72.0 05/06 2129 90 109/52 05/06 2123 117.0 05/06 2123 103 152/101 05/06 3 94.0 05/06 2052 97 137/71 05/06 3 101.0 05/06 2022 108 126/87 05/06 1923 85.0 05/06 1923 90 131/59 05/06 1903 36.8 05/06 1903 94.0 05/06 1903 98 138/65 05/06 1851 112.0 05/06 1851 118 133/101 05/06 1737 96.0 05/06 1737 103 160/67 05/06 1724 104.0 05/06 1724 95 154/68 05/06 1722 108.0 05/06 1722 99 161/76 05/06 1710 97.0 05/06 1710 100 152/74 01/31 1636 104.0 01/31 1636 94 137/82 01/31 1631 36.7 19 Respiratory/Airway: respiratory system stable Pain: adequately controlled Hydration: adequate Presence of N/V: no at 1425 RPT #:[id number] END OF REPORT 2019-02-01 14:10:00-00:00 [facility] ([facility]) Pain Management Consult Note REPORT#:[id number] REPORT STATUS: Signed DATE:02/01/19 TIME: 141 PATIENT: REYNA EARLY UNIT #: [id number] ROOM/BED: [place] [address] : 90 AGE: 28 SEX: F ATTEND: Frank Torres MD ADM AUTHOR: Beata Harper MD * ALL edits or amendments must be made on the [employer]/computer document * History of Present Illness Primary Care Physician: Annelise History Past History Past Medical History: Reports: Hypertension. Allergies: Coded Allergies: No Known Allergies (02/01/19) Diagnosis, Assessment Plan Free text A P: Consulted by [Brian] for post-op pain ma nagement on this patient scheduled for [cs]. I have discussed wit h the patient the risks, benefits, and options and he/she wishes to proceed with the pl anned anesthetic. ([x]) An Epidural was performed; the epidural f or the intra-operative anesthetic and the epidural catheter placed for post-op pain management. The Anesthesiology department will follow. at 1411 RPT #:[id number] END OF REPORT 2019-02-01 09:44:00-00:00 [facility] ([facility]) Consultation Note - Brief REPORT#:[id number] REPORT STATUS: Signed DATE:02/01/19 TIME: 943 PATIENT: REYNA EARLY UNIT #: [id number] ROOM/BED: [facility] : 90 AGE: 28 SEX: F ATTEND: Frank Torres MD ADM AUTHOR: Gurdeep aCsey MD * ALL edits or amendments must be made on the [employer] document * History - Adult longitudinal Allergies: Coded Allergies: No Known Allergies (02/01/19) Attestations Midlevel/Physician Attestation Physician attestation: Please see chart for copy of consult. at 0945 RPT #:[id number] END OF REPORT 2019-02-01 08:29:00-00:00 [facility] ([facility]) OB Admission / H P REPORT#:[id number] REPORT STATUS: Signed DATE:02/01/19 TIME: 828 PATIENT: REYNA EARLY UNIT #: [id number] ROOM/BED: [facility] : 90 AGE: 28 SEX: F ATTEND: Gabriel Torres MD ADM AUTHOR: Gabriel Torres MD * ALL edits or amendments must be made on the [employer] document * OB Admission H P Hx Allergies Coded Allergies: No Known Allergies (02/01/19) Objective General VS: Last Documented: Result Date Time B/P Mean 78.0 02/01 0855 B/P 118/54 02/01 0855 Pulse 82 02/01 0855 Temp 37.0 01/31 2302 Resp 19 01/31 1631 Vital Signs Date Temp Pulse Resp B/P B/P Mean Pulse Ox FiO2 01/31-02/01 36.7-37.0 81-118 19 109-180/52-101 7 2.0-121.0 Physical Exam Cardiac: regular rate and rh ythm, no clinically sig murmur, no gallops, no rubs Lungs: clear to auscultation Breasts: deferred Neuro: Exam: alert, oriented x3, normal speech Abdomen: gravid, soft, no abnormal tenderness, n o guarding, no rebound tenderness, normoactive bowel sounds Uterine activity: Monitor: toco Intensity: moderate Pelvic exam: Pelvis clinically adequate: yes, inlet appears appropriate, pubic bone config appropr, no midpelvic contraction Membranes: Membranes: Intact Result Findings/Data: Laboratory Tests: 02/01 02/01 01/31 1425 1359 1610 Blood Gas Puncture Site Other VBG pH (7.33 - 7.45) 7.11 L VBG pCO2 (43 - 47 mmHg) 82 *H VBG pO2 (10 - 50 mmHg) 32 VBG HCO3 (22 - 27 mmol/L) 26.4 VBG Total CO2 29 VBG O2 Sat (Calc) (60 - 80 %) 42 L VBG Base Excess (-4.0 - 4.0 mmol/L) -3.0 VBG Temperature (F) 97.6 Cord Blood pH (7.20 - 7.30) 7.23 Cord Blood PCO2 (45 - 50 MMHG) 59 H Cord Blood PO2 (15 - 25 mmHg) 12 L Cord Blood HCO3 (15 - 25 mmol/L) 25 Cord Base Excess (-5 - 5 mmol/L) -3.0 Cord O2 Saturation (25 - 45 %) 9 L O2 Delivery Device InfantVent Vent Mode Inf CPAP FiO2 (%) 22 PEEP (cmH2O) 5 Chemistry Sodium (134 - 147 mEq/L) 140 Potassium (3.4 - 5.0 mEq/L) 3.8 Chloride (100 - 108 mEq/L) 107 Carbon Dioxide (21 - 33 mEq/L) 25 Anion Gap (0 - 20) 12 BUN (7 - 18 mg/dL) 6 L Creatinine (0.6 - 1.3 mg/dL) 0.6 Glomerular Filtr Rate (110 - 120) 119.0 Glucose (70 - 110 mg/dL) 103 Uric Acid (2.6 - 7.2 mg/dL) 4.6 Calcium (8.0 - 10.5 mg/dL) 8.9 Total Bilirubin (0.0 - 1.0 mg/dL) 0.20 AST (15 - 37 IUnit/L) 24 ALT (15 - 65 IUnit/L) 19 Total Alk Phosphatase (20 - 125 IUnit/L) 107 Lactate Dehydrogenase (84 - 246 IUnits/L) 154 Total Protein (6.4 - 8.2 g/dL) 6.7 Albumin (3.4 - 5.0 g/dL) 2.50 L Hematology WBC (4.5 - 11.0 x10 3/uL) 11.74 H RBC (3.54 - 5.02 x10 6/uL) 3.70 Hgb (11.0 - 15.0 g/dL) 11.2 Hct (33.0 - 45.0 %) 33.7 MCV (81.0 - 99.0 fL) 91.1 MCH (27.0 - 33.0 pg) 30.3 MCHC (33.0 - 37.0 g/dL) 33.2 RDW (11.5 - 14.5 %) 14.1 Plt Count (150 - 400 x10 3/uL) 310 MPV (7.0 - 9.0 fL) 10.4 H Neut % (Auto) (56.0 - 77.0 %) 72.3 Lymph % (Auto) (14.0 - 32.0 %) 18.8 [place] % (Auto) (4.8 - 9.0 %) 6.9 Eos % (Auto) (0.3 - 3.7 %) 0.9 Baso % (Auto) (0.0 - 2.0 %) 0.2 Neut # (Auto) (2.0 - 7.6 x10 3/uL) 8.49 H Lymph # (Auto) (1.0 - 3.8 x10 3/uL) 2.21 [place] # (Auto) (0.1 - 0.8 x10 3/uL) 0.81 H Eos # (Auto) (0.0 - 0.2 x10 3/uL) 0.10 Baso # (Auto) (0.0 - 0.2 x10 3/uL) 0.02 Abs Immat Gran (auto) (0.00 - 0.03 x10 3/uL) 0. 11 H Add Manual Diff NO Immature Gran % (0.0 - 2.0 %) 0.9 Nucleated RBC % (0 - 0 %) 0.0 Nucleated RBCs # (Man) (0.0 - 0.1 x10 3/uL) 0. 00 05/06 1545 Urines Urine Color (YEL/STRAW) YELLOW Urine Appearance (CLEAR) SL CLOUDY Urine pH (5.0 - 7.0) 7.0 Ur Specific [place] (1.005 - 1.030) 1.019 Urine Protein (NEGATIVE) NEGATIVE Urine Glucose (UA) (NEGATIVE) NEGATIVE Urine Ketones (NEGATIVE) NEGATIVE Urine Blood (NEGATIVE) NEGATIVE Urine Nitrite (NEGATIVE) NEGATIVE Urine Bilirubin (NEGATIVE) NEGATIVE Urine Urobilinogen (0.2 - 1.0 mg/dL) 0.2 Ur Leukocyte Esterase (NEGATIVE) NEGATIVE Urine RBC (0 - 3 RBC/HPF) 0-3 Urine WBC (0 - 3 WBC/HPF) 0-3 Ur Squamous Epith Cells (NONE SEEN /HPF) 0-5 Urine Bacteria (NONE SEEN /HPF) NONE SEEN Urine Mucus (NONE SEEN /LPF) TRACE Diagnosis, Assessment Plan Diagnosis, Assessment Plan Free Text A P: 28 yr old p2113 LMP: unk EDC: 03/16/19 @ 33+6 dated by 11+2 week eagle on sent from [facility] office for admission for PIH ev al and possile delivery after patient presented with compl aints of headaches ansuaea and vomiting. Contnues to complain of scotoma and abdominal tenern ess. She has no other acute complaints at this time. Denies vaginal bleeding or LOF. +F M. 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 Early GCT: 87 cHTN - On labetalol 300mg TID. Hx of preeclampsia on LDA daily. RH neg for rhogam at 29 weeks and Eval at delive ry Multiparity Desires tubal ligation OBhx: Pre-term c/s x 1, FT c/s x 2, SAB x 1. GynHx: Reg menses, denies fibroids, cyst, STD's or abnormal pap MHx: Denies SurgHx: C/S x 2, addenoidectomy Family Hx: Denies SHx: Denies Alcohol, Cigarette and illicit drug Use Meds: PNV Allergy: NKDA Vitals: Stable Gen: NAD HEENT: Normocephalic. CVS: S1S2 Lung: clear b/l, mild rhonchi- 10/18/18 Abd: Old transverse scar on abdomen. NT, ND Ext: No calf tenderness, No DVT signs, Trace Reji ma Pelvic: Normal external fema le genitalia, No lesions or masses in vulva, vagina or cervix. Labs: T S: O Neg Antibody: Neg HIV: Neg HbsAg: Neg Rubella: Immune VZ: Neg RPR: NR Pap- NFM -2016 NIPT: Low risk- Male AFP- WNL GCT: 190mg/dl GTT: 91/202/101/127 NIPT: Male- Low risk 01/06/19- Limited sono for FHR: 129BPM. 07/14/18-sono: +gestation sac like structure, Yo lk sac. Imp: IUP @ 33+6 weeks GA with superimposed pre-e clampsia. Plan: admit to labor and delivery Delivery recommended by [facility] Steroids NICU consult NPO Ancef 3g at 1505 RPT #:[id number] END OF REPORT 2019-02-01 07:55:00-00:00 [facility]) [facility] Consultation Note REPORT#:[id number] REPORT STATUS: Signed DATE:02/01/19 TIME: 0755 PATIENT: REYNA EARLY UNIT #: [id number] ROOM/BED: [place] [id number] : 90 AGE: 28 SEX: F ATTEND: Frank Torres MD ADM AUTHOR: Santos Carlson MD * ALL edits or amendments must be made on the [employer]/computer document * History Past History Allergies: Coded Allergies: No Known Allergies (12/15/18) Objective Physical Exam General appearance: alert Results Findings/Data: Laboratory Tests 01/31 1610 Chemistry Sodium (134 - 147 mEq/L) 140 Potassium (3.4 - 5.0 mEq/L) 3.8 Chloride (100 - 108 mEq/L) 107 Carbon Dioxide (21 - 33 mEq/L) 25 Anion Gap (0 - 20) 12 BUN (7 - 18 mg/dL) 6 L Creatinine (0.6 - 1.3 mg/dL) 0.6 Glomerular Filtr Rate (110 - 120) 119.0 Glucose (70 - 110 mg/dL) 103 Uric Acid (2.6 - 7.2 mg/dL) 4.6 Calcium (8.0 - 10.5 mg/dL) 8.9 Total Bilirubin (0.0 - 1.0 mg/dL) 0.20 AST (15 - 37 IUnit/L) 24 ALT (15 - 65 IUnit/L) 19 Total Alk Phosphatase (20 - 125 IUnit/L) 107 Lactate Dehydrogenase (84 - 246 IUnits/L) 154 Total Protein (6.4 - 8.2 g/dL) 6.7 Albumin (3.4 - 5.0 g/dL) 2.50 L Laboratory Tests 01/31 1610 Hematology WBC (4.5 - 11.0 x10 3/uL) 11.74 H RBC (3.54 - 5.02 x10 6/uL) 3.70 Hgb (11.0 - 15.0 g/dL) 11.2 Hct (33.0 - 45.0 %) 33.7 MCV (81.0 - 99.0 fL) 91.1 MCH (27.0 - 33.0 pg) 30.3 MCHC (33.0 - 37.0 g/dL) 33.2 RDW (11.5 - 14.5 %) 14.1 Plt Count (150 - 400 x10 3/uL) 310 MPV (7.0 - 9.0 fL) 10.4 H Neut % (Auto) (56.0 - 77.0 %) 72.3 Lymph % (Auto) (14.0 - 32.0 %) 18.8 [place] % (Auto) (4.8 - 9.0 %) 6.9 Eos % (Auto) (0.3 - 3.7 %) 0.9 Baso % (Auto) (0.0 - 2.0 %) 0.2 Neut # (Auto) (2.0 - 7.6 x10 3/uL) 8.49 H Lymph # (Auto) (1.0 - 3.8 x10 3/uL) 2.21 [place] # (Auto) (0.1 - 0.8 x10 3/uL) 0.81 H Eos # (Auto) (0.0 - 0.2 x10 3/uL) 0.10 Baso # (Auto) (0.0 - 0.2 x10 3/uL) 0.02 Abs Immat Gran (auto) (0.00 - 0.03 x10 3/uL) 0. 11 H Add Manual Diff NO Immature Gran % (0.0 - 2.0 %) 0.9 Nucleated RBC % (0 - 0 %) 0.0 Nucleated RBCs # (Man) (0.0 - 0.1 x10 3/uL) 0.0 0 Laboratory Tests 01/31 1545 Urines Urine Color (YEL/STRAW) YELLOW Urine Appearance (CLEAR) SL CLOUDY Urine pH (5.0 - 7.0) 7.0 Ur Specific [place] (1.005 - 1.030) 1.019 Urine Protein (NEGATIVE) NEGATIVE Urine Glucose (UA) (NEGATIVE) NEGATIVE Urine Ketones (NEGATIVE) NEGATIVE Urine Blood (NEGATIVE) NEGATIVE Urine Nitrite (NEGATIVE) NEGATIVE Urine Bilirubin (NEGATIVE) NEGATIVE Urine Urobilinogen (0.2 - 1.0 mg/dL) 0.2 Ur Leukocyte Esterase (NEGATIVE) NEGATIVE Urine RBC (0 - 3 RBC/HPF) 0-3 Urine WBC (0 - 3 WBC/HPF) 0-3 Ur Squamous Epith Cells (NONE SEEN /HPF) 0-5 Urine Bacteria (NONE SEEN /HPF) NONE SEEN Urine Mucus (NONE SEEN /LPF) TRACE MFM consultation Pt seen and evaluated - known to me from prior e ncounters States persistent moderated headaches, s ome nausea, emesis and dizziness since last night Good FM reported Denies VB/LOF BPs mild to severe range, AF abd soft, NT no CVAT 2+ PE, 2+ DTR FHT mod. BTBV, + accels, no signifciant decels, no CTX, cat I labs reviewed A/P 28yo at 33w6d (EDC 03/16) - Supermiposed preeclampsia with severe features / Hx of Preeclampsia x3 receiving BMZ series needs NICU consult reviewed recommendation for delivery based on current clinical presentation and basis for it questions discussed - LGA / Borderline S/D no new issues - BMI > 50 failde GCT and passed OGTT - Hx of migraines stable - Prior CSx3 for RCS D/W Dr Torres Thank you for sharing in the care of your patien t and verbal consultation! Floor time 60min Electronically Signed by Santos Carlson MD on at 0800 RPT #:[id number] END OF REPORT 2019-01-26 23:02:00-00:00 [facility] ([facility]) REJI Evaluation Note REPORT#:[id number] REPORT STATUS: Signed DATE:01/26/19 TIME: 2301 PATIENT: REYNA EARLY UNIT #: [id number] ROOM/BED: [place] [id number] : 90 AGE: 28 SEX: F ATTEND: Lidya Early MD ADM DT: AUTHOR: Shonna Early MD * ALL edits or amendments must be made on the [employer]/computer document * REJI History Chief complaint: uterine contractions, suspected ruptured memb, headache HPI: 28 yo A1 @ 33 weeks here complaining of possible leaking of fluid since 4:30 PM. Her OB history is significant for possible c HTN and pre-eclampsia in her prior pregnances. She has been on labetalol sinc e 20 weeks. She is followed by MFM. Her history is also significant for prev ious x 3. She is unsure but she thinks she ma ybe ziyad. She also has a history of headache and is currently reporting a headache. She has a prescription for Fiorocet at home but did not take any for her headache. history: : 5 Term: 3 : 0 Abortus: 1 Living children: 3 Complications (prev preg): hypertension Previous : unknown uterine incision Number of prev : 3 Current : EDC: 03/10/19 EGA (weeks/days): 33 weeks Conditions of : previous uterine incisi on, chronic HTN, obesity Notes: care with Dr Torres and Dr Swann Past medical history: hypertension, migraines, o besity Past surgical history: , tonsils, lipot ripsy Social history: unemployed, no alcohol use, no t obacco use, no drug use Medications: Home Medications: Medication Dose/Rte/Freq Days Qty Entered Last Max Daily Dose Reviewed PNV WITH FE 1 TAB PO DAILY 08/24/17 FUMARATE/FA 0608 () Strength: 1 EACH TAB BUTALBITAL/APAP/CAFF 1 CAP PO 01/07/19 50/300/40 MG Q4H PRN PRN 1455 (FIORICET) HEADACHE Strength: 1 CAP CAP LABETALOL (TRANDATE) 300 MG PO TID 01/07/19 Strength: 300 MG TAB 2051 Allergies Coded Allergies: No Known Allergies (12/15/18) Review of Systems Constitutional: Denies: chills, fever. Respiratory: Denies: POWELL (dyspnea on exertion). Cardiovascular: Denies: palpitations. GI: Denies: abdominal pain, nausea, vomiting. : Denies: vaginal bleeding. Neuro: Denies: headache, vision change. Objective General VS: Last Documented: Result Date Time B/P 136/63 01/27 2232 Temp 97.7 01/26 223 Vital Signs Date Temp Pulse Resp B/P B/P Mean Pulse Ox FiO 2 01/26 97.7 118-136/58-63 Physical Exam Neuro: Exam: alert, oriented x3, normal speech Abdomen: gravid, soft, no abnormal tenderness, n o guarding, no rebound tenderness Uterine activity: Monitor: toco Pelvic exam: Vulvar lesions: none, no evidence herpetic les Cervical/ exam: Dilatation (cm): 0 - closed FHR evaluation: Baseline: 125 bpm Variability: moderate 6-25 bpm Accelerations: 15 X 15 Decelerations: none Lower extremities: Edema: trace Result Findings/Data: Laboratory Tests: 01/26 01/26 2300 2240 Chemistry Sodium (134 - 147 mEq/L) 139 Potassium (3.4 - 5.0 mEq/L) 3.7 Chloride (100 - 108 mEq/L) 109 H Carbon Dioxide (21 - 33 mEq/L) 23 Anion Gap (0 - 20) 11 BUN (7 - 18 mg/dL) 6 L Creatinine (0.6 - 1.3 mg/dL) 0.5 L Glomerular Filtr Rate (110 - 120) 146.9 H Glucose (70 - 110 mg/dL) 82 Uric Acid (2.6 - 7.2 mg/dL) 4.2 Calcium (8.0 - 10.5 mg/dL) 8.4 Total Bilirubin (0.0 - 1.0 mg/dL) 0.20 AST (15 - 37 IUnit/L) 28 ALT (15 - 65 IUnit/L) 18 Total Alk Phosphatase (20 - 125 IUnit/L) 102 Lactate Dehydrogenase (84 - 246 IUnits/L) 144 Total Protein (6.4 - 8.2 g/dL) 6.7 Albumin (3.4 - 5.0 g/dL) 2.50 L Hematology WBC (4.5 - 11.0 x10 3/uL) 12.35 H RBC (3.54 - 5.02 x10 6/uL) 3.65 Hgb (11.0 - 15.0 g/dL) 10.8 L Hct (33.0 - 45.0 %) 33.1 MCV (81.0 - 99.0 fL) 90.7 MCH (27.0 - 33.0 pg) 29.6 MCHC (33.0 - 37.0 g/dL) 32.6 L RDW (11.5 - 14.5 %) 14.2 Plt Count (150 - 400 x10 3/uL) 297 MPV (7.0 - 9.0 fL) 10.2 H Neut % (Auto) (56.0 - 77.0 %) 70.0 Lymph % (Auto) (14.0 - 32.0 %) 19.8 [place] % (Auto) (4.8 - 9.0 %) 7.9 Eos % (Auto) (0.3 - 3.7 %) 1.0 Baso % (Auto) (0.0 - 2.0 %) 0.2 Neut # (Auto) (2.0 - 7.6 x10 3/uL) 8.65 H Lymph # (Auto) (1.0 - 3.8 x10 3/uL) 2.44 [place] # (Auto) (0.1 - 0.8 x10 3/uL) 0.97 H Eos # (Auto) (0.0 - 0.2 x10 3/uL) 0.12 Baso # (Auto) (0.0 - 0.2 x10 3/uL) 0.03 Abs Immat Gran (auto) (0.00 - 0.03 x10 3/uL) 0. 14 H Add Manual Diff NO Immature Gran % (0.0 - 2.0 %) 1.1 Nucleated RBC % (0 - 0 %) 0.0 Nucleated RBCs # (Man) (0.0 - 0.1 x10 3/uL) 0.0 0 Other Body Source Membrane Rupture (NEGATIVE) NEGATIVE Toxicology Urine Opiates Screen (NEGATIVE) NEGATIVE Urine Barbiturates (NEGATIVE) POSITIVE H Ur Phencyclidine Scrn (NEGATIVE) NEGATIVE Ur Amphetamines Screen (NEGATIVE) NEGATIVE U Benzodiazepines Scrn (NEGATIVE) NEGATIVE Urine Cocaine Screen (NEGATIVE) NEGATIVE Urine Cannabinoids (NEGATIVE) NEGATIVE Urines Urine Color (YEL/STRAW) YELLOW Urine Appearance (CLEAR) SL CLOUDY Urine pH (5.0 - 7.0) 7.0 Ur Specific [place] (1.005 - 1.030) 1.015 Urine Protein (NEGATIVE) NEGATIVE Urine Glucose (UA) (NEGATIVE) NEGATIVE Urine Ketones (NEGATIVE) NEGATIVE Urine Blood (NEGATIVE) NEGATIVE Urine Nitrite (NEGATIVE) NEGATIVE Urine Bilirubin (NEGATIVE) NEGATIVE Urine Urobilinogen (0.2 - 1.0 mg/dL) 0.2 Ur Leukocyte Esterase (NEGATIVE) TRACE H Urine RBC (0 - 3 RBC/HPF) 0-3 Urine WBC (0 - 3 WBC/HPF) 4-9 H Ur Squamous Epith Cells (NONE SEEN /HPF) 0-5 Urine Bacteria (NONE SEEN /HPF) NONE SEEN Urine Mucus (NONE SEEN /LPF) TRACE Diagnosis, Assessment Plan Diagnosis, Assessment Plan Free Text A P: 28 yo A1 @ 33 weeks her here reporti ng elevated BPs and possible SROM. ROM plus negative. No evidence of laobr. BPs in the normal range and PIH labs wnl. Discussed patient with Dr Ronit Early. Will disch arge home with labor and PIH precautions. Assessment: no evidence labor, reassuring status Plan: discharge home Plan discussed with: patient, parent, collaborat alisson RDZ, nurse at 0018 RPT #:[id number] END OF REPORT 2019-01-20 13:21:00-00:00 [facility] ([facility]) OB Triage Visit REPORT#:[id number] REPORT STATUS: Signed DATE:01/20/19 TIME: 1321 PATIENT: REYNA EARLY UNIT #: [id number] [place]: [facility] [place] : [place] AGE: 28 SEX: F ATTEND: Frank Torres MD ADM DT: AUTHOR: Gabriel Torres MD * ALL edits or amendments must be made on the [employer]/computer document * History Past history Allergies Coded Allergies: No Known Allergies (12/15/18) Diagnosis, Assessment Plan Diagnosis, Assessment Plan Free text A P: 28 yr old p2113 LMP: unk EDC: 03/16/19 @ 32+1 dated by 11+2 week sono on sent by [facility] for pre-eclam psia eval secondary to headaches in office. She has no other acute complaints at this time. Denies n ausea, abd pain, vaginal bleeding, fevers or chills. 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 Early GCT: 87 cHTN - On labetalol 300mg TID. Hx of preeclampsia on LDA daily. RH neg for rhogam at 29 weeks and Eval at delive ry Multiparity Desires tubal ligation Delivery plan: >/= 37 weeks OBhx: Pre-term c/s x 1, FT c/s x 2, SAB x 1. GynHx: Reg menses, denies fibroids, cyst, STD's or abnormal pap MHx: Denies SurgHx: C/S x 2, addenoidectomy Family Hx: Denies SHx: Denies Alcohol, Cigarette and illicit drug Use Meds: PNV Allergy: NKDA Vitals: Stable Gen: NAD HEENT: Normocephalic. CVS: S1S2 Lung: clear b/l, mild rhonchi- 10/18/18 Abd: Old transverse scar on abdomen. NT, ND Ext: No calf tenderness, No DVT signs, Trace Reji ma Pelvic: Normal external fema le genitalia, No lesions or masses in vulva, vagina or cervix. Labs: T S: O Neg Antibody: Neg HIV: Neg HbsAg: Neg Rubella: Immune VZ: Neg RPR: NR Pap- NFM -2016 NIPT: Low risk- Male AFP- WNL GCT: 190mg/dl GTT: 91/202/101/127 NIPT: Male- Low risk 01/06/19- Limited sono for FHR: 129BPM. 07/14/18-sono: +gestation sac like structure, Yo lk sac. Imp: IUP @ 32+1 weeks GA for r/o PIH Plan: f/up Labs Dexamethasone at 1324 RPT #:[id number] END OF REPORT 2019-01-08 10:33:00-00:00 [facility] ([facility]) OB Disch Undelivered REPORT#:[id number] REPORT STATUS: Signed DATE:01/08/19 TIME: 1033 PATIENT: REYNA EARLY UNIT #: [id number] ROOM/BED: [place] [id number] : 90 AGE: 28 SEX: F ATTEND: Frank Torres MD ADM AUTHOR: Gabriel Torres MD * ALL edits or amendments must be made on the [employer] document * Subjective Subjective Admission EGA (wks/days): 30+3 Status/Day: hospital day (day 1) Objective General VS: Last Documented: Result Date Time Temp 36.6 01/08 0846 Resp 20 01/08 0846 B/P Mean 100.0 01/08 0846 B/P 146/76 01/08 0846 Pulse 97 01/08 0846 Vital Signs Date Temp Pulse Resp B/P B/P Mean Pulse Ox FiO2 01/07-01/08 36.6-36.8 85-97 18-20 113-146/54-76 78.0-100.0 Physical Exam FHR evaluation: Baby A baseline: 150 bpm Baby A variability: moderate 6-25 bpm Baby A accelerations: 15 X 15 Baby A decelerations: none Baby A FHR category: category 1 Uterine activity: Monitor: toco Intensity: moderate HEENT: normocephalic w/o injury Lungs: clear to auscultation Neuro: Exam: alert, oriented x3, normal speech Abdomen: gravid, soft, no abnormal tenderness, n o guarding, no rebound tenderness, normoactive bowel sounds Lower extremities: Edema: trace Discharge Undelivered Discharge Undelivered Problem List/A P: 1. Previous section Admission diagnosis: gestational diabetes Hospital course: Repeat labs remained within normal limits. Hospi ramona course unremarkable. Instructions: routine instr sheet given, instr a nd warnings rev'd, specific instr as noted Warnings: bleeding, nausea/v omit/dehydration, labor warnings, preeclampsia signs /sympt, decreased movement, fever Diet: regular Activity and restrictions: normal - up ad arya Discharge meds: Continue taking these medications: PNV WITH FE FUMARATE/FA () 1 EACH TAB 1 TABLET ORAL DAILY. BUTALBITAL/APAP/CAFF 50/300/40 MG (FIORICET) 1 C AP CAP 1 CAPSULE ORAL EVERY 4 HOURS NEEDED. as need ed for HEADACHE LABETALOL (TRANDATE) 300 MG TAB 400 MILLIGRAM ORAL THREE TIMES A DAY. 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 Follow up in: 2 weeks at 1042 RPT #:[id number] END OF REPORT 2019-01-08 09:36:00-00:00 [facility] Consultation Note REPORT#:[id number] REPORT STATUS: Signed DATE:01/08/19 TIME: 935 PATIENT: REYNA EARLY UNIT #: [id number] ROOM/BED: [place] [id number] : 90 AGE: 28 SEX: F ATTEND: Frank Torres MD ADM AUTHOR: Santos Carlson MD * ALL edits or amendments must be made on the [employer]/computer document * History Past History Allergies: Coded Allergies: No Known Allergies (12/15/18) Objective Physical Exam General appearance: alert Results Findings/Data: Laboratory Tests 01/08 01/07 0510 1540 Chemistry Sodium (134 - 147 mEq/L) 140 140 Potassium (3.4 - 5.0 mEq/L) 3.5 3.6 Chloride (100 - 108 mEq/L) 109 H 109 H Carbon Dioxide (21 - 33 mEq/L) 25 24 Anion Gap (0 - 20) 10 11 BUN (7 - 18 mg/dL) 8 7 Creatinine (0.6 - 1.3 mg/dL) 0.5 L 0.5 L Glomerular Filtr Rate (110 - 120) 146.9 H 146.9 H Glucose (70 - 110 mg/dL) 105 93 Uric Acid (2.6 - 7.2 mg/dL) 4.4 Calcium (8.0 - 10.5 mg/dL) 8.4 9.0 Total Bilirubin (0.0 - 1.0 mg/dL) 0.10 0.10 AST (15 - 37 IUnit/L) 25 31 ALT (15 - 65 IUnit/L) 20 29 Total Alk Phosphatase (20 - 125 IUnit/L) 88 97 Lactate Dehydrogenase (84 - 246 IUnits/L) 110 Total Protein (6.4 - 8.2 g/dL) 6.0 L 6.8 Albumin (3.4 - 5.0 g/dL) 2.20 L 2.60 L Laboratory Tests 01/08 04/12 0510 1540 Hematology WBC (4.5 - 11.0 x10 3/uL) 9.48 11.48 H RBC (3.54 - 5.02 x10 6/uL) 3.47 L 3.71 Hgb (11.0 - 15.0 g/dL) 10.4 L 11.0 Hct (33.0 - 45.0 %) 30.8 L 33.9 MCV (81.0 - 99.0 fL) 88.8 91.4 MCH (27.0 - 33.0 pg) 30.0 29.6 MCHC (33.0 - 37.0 g/dL) 33.8 32.4 L RDW (11.5 - 14.5 %) 14.3 14.3 Plt Count (150 - 400 x10 3/uL) 273 312 MPV (7.0 - 9.0 fL) 10.2 H 10.4 H Neut % (Auto) (56.0 - 77.0 %) 66.5 71.8 Lymph % (Auto) (14.0 - 32.0 %) 21.6 17.9 [place] % (Auto) (4.8 - 9.0 %) 9.4 H 7.9 Eos % (Auto) (0.3 - 3.7 %) 1.2 1.0 Baso % (Auto) (0.0 - 2.0 %) 0.2 0.2 Neut # (Auto) (2.0 - 7.6 x10 3/uL) 6.31 8.23 H Lymph # (Auto) (1.0 - 3.8 x10 3/uL) 2.05 2.06 [place] # (Auto) (0.1 - 0.8 x10 3/uL) 0.89 H 0.91 H Eos # (Auto) (0.0 - 0.2 x10 3/uL) 0.11 0.12 Baso # (Auto) (0.0 - 0.2 x10 3/uL) 0.02 0.02 Abs Immat Gran (auto) (0.00 - 0.03 x10 3/uL) 0. 10 H 0.14 H Add Manual Diff NO NO Immature Gran % (0.0 - 2.0 %) 1.1 1.2 Nucleated RBC % (0 - 0 %) 0.0 0.0 Nucleated RBCs # (Man) (0.0 - 0.1 x10 3/uL) 0.0 0 0.00 Laboratory Tests 01/07 1540 Serology Hep Bs Antigen (NonReactive INDEX) NON REACTIVE HIV 1 2 Antibody (NONREACTIVE INDEX) NONREACTIV E Laboratory Tests 01/08 01/07 0510 1540 Urines Urine Color (YEL/STRAW) STRAW YELLOW Urine Appearance (CLEAR) SL CLOUDY CLEAR Urine pH (5.0 - 7.0) 8.0 H 6.0 Ur Specific [place] (1.005 - 1.030) 1.009 1.016 Urine Protein (NEGATIVE) NEGATIVE NEGATIVE Urine Glucose (UA) (NEGATIVE) NEGATIVE NEGATIVE Urine Ketones (NEGATIVE) NEGATIVE NEGATIVE Urine Blood (NEGATIVE) NEGATIVE NEGATIVE Urine Nitrite (NEGATIVE) NEGATIVE NEGATIVE Urine Bilirubin (NEGATIVE) NEGATIVE NEGATIVE Urine Urobilinogen (0.2 - 1.0 mg/dL) 0.2 0.2 Ur Leukocyte Esterase (NEGATIVE) NEGATIVE NEGAT JASMINE Urine RBC (0 - 3 RBC/HPF) 0-3 0-3 Urine WBC (0 - 3 WBC/HPF) 4-9 H 0-3 Ur Squamous Epith Cells (NONE SEEN /HPF) 11-25 H 0-5 Urine Bacteria (NONE SEEN /HPF) TRACE NONE SEEN Urine Mucus (NONE SEEN /LPF) TRACE TRACE Urine Yeast (NONE /HPF) 1+ H MFM consultation Pt seen and evaluated Known to me from prior encounters Annastasia is a 28yo at 30w3d (EDC 03/16) admitted with elevated BP and PIH sx She feeling well at present Reports good FM PHLEBOTOMY LAB ASSISTANT sx resolved VSSAF abd soft NT no CVAT 1+ PE, 2+ DTR FHT mod BTBV, + accels, no significant CTX, no d ecels, cat I labs reviewed A/P 28yo at 30w3d (EDC 03/16) - Superimposed preeclampsia / Hx of Preeclampsia x3 no evidence of severe disease discussed reviewed may be discharged w/ strict precautoins and cont. close f/u precautions discussed - LGA / Polyhydramnios / Borderline umb. art. S/ D will cont. to follow - BMI > 50 had normal BG screening - Hx of Migraines discussed precautions - Hx of nausea stable - hx of kidney stones no current issues to cont. hydration Thank you for sharing in the care of your patien t! D/W Dr Torres Floor time 60min Electronically Signed by Santos Carlson MD on at 0939 RPT #:[id number] END OF REPORT 2019-01-08 09:25:00-00:00 [facility] ([facility]) OB Admission / H P REPORT#:[id number] REPORT STATUS: Signed DATE:01/08/19 TIME: 924 PATIENT: REYNA EARLY UNIT #: [id number] ROOM/BED: [place] [id number] : 90 AGE: 28 SEX: F ATTEND: Frank Torres MD ADM AUTHOR: Gabriel Torres MD * ALL edits or amendments must be made on the el ectronic/computer document * OB Admission H P Hx Allergies Coded Allergies: No Known Allergies (12/15/18) Objective General VS: Last Documented: Result Date Time B/P Mean 100.0 01/08 0846 B/P 146/76 01/08 0846 Pulse 97 01/08 0846 Resp 18 01/07 2216 Temp 36.8 01/07 1910 Vital Signs Date Temp Pulse Resp B/P B/P Mean Pulse Ox FiO2 01/07-01/08 36.7-36.8 85-97 18 113-146/54-76 7 8.0-100.0 Physical Exam HEENT: normocephalic w/o injury Cardiac: regular rate and rhythm Lungs: clear to auscultation Breasts: deferred Neuro: Exam: alert, oriented x3, normal speech Abdomen: gravid, soft, no abnormal tenderness, n o guarding, no rebound tenderness, normoactive bowel sounds Uterine activity: Monitor: toco Intensity: moderate Pelvic exam: Pelvis clinically adequate: yes, inlet appears appropriate, pubic bone config appropr, no midpelvic contraction Vulvar lesions: none, no evidence herpetic les, no evidence of other STD Vagina: normal, non-septated, w/o apparent lesi ons Membranes: Membranes: status undetermined Lower extremities: Edema: trace Baby A: Baby A baseline: 150 bpm Baby A variability: moderate 6-25 bpm Baby A accelerations: 15 X 15 Baby A decelerations: none Baby A FHR category: category 1 Result Findings/Data: Laboratory Tests: 01/08 01/07 0510 1540 Chemistry Sodium (134 - 147 mEq/L) 140 140 Potassium (3.4 - 5.0 mEq/L) 3.5 3.6 Chloride (100 - 108 mEq/L) 109 H 109 H Carbon Dioxide (21 - 33 mEq/L) 25 24 Anion Gap (0 - 20) 10 11 BUN (7 - 18 mg/dL) 8 7 Creatinine (0.6 - 1.3 mg/dL) 0.5 L 0.5 L Glomerular Filtr Rate (110 - 120) 146.9 H 146.9 H Glucose (70 - 110 mg/dL) 105 93 Uric Acid (2.6 - 7.2 mg/dL) 4.4 Calcium (8.0 - 10.5 mg/dL) 8.4 9.0 Total Bilirubin (0.0 - 1.0 mg/dL) 0.10 0.10 AST (15 - 37 IUnit/L) 25 31 ALT (15 - 65 IUnit/L) 20 29 Total Alk Phosphatase (20 - 125 IUnit/L) 88 97 Lactate Dehydrogenase (84 - 246 IUnits/L) 110 Total Protein (6.4 - 8.2 g/dL) 6.0 L 6.8 Albumin (3.4 - 5.0 g/dL) 2.20 L 2.60 L Hematology WBC (4.5 - 11.0 x10 3/uL) 9.48 11.48 H RBC (3.54 - 5.02 x10 6/uL) 3.47 L 3.71 Hgb (11.0 - 15.0 g/dL) 10.4 L 11.0 Hct (33.0 - 45.0 %) 30.8 L 33.9 MCV (81.0 - 99.0 fL) 88.8 91.4 MCH (27.0 - 33.0 pg) 30.0 29.6 MCHC (33.0 - 37.0 g/dL) 33.8 32.4 L RDW (11.5 - 14.5 %) 14.3 14.3 Plt Count (150 - 400 x10 3/uL) 273 312 MPV (7.0 - 9.0 fL) 10.2 H 10.4 H Neut % (Auto) (56.0 - 77.0 %) 66.5 71.8 Lymph % (Auto) (14.0 - 32.0 %) 21.6 17.9 [place] % (Auto) (4.8 - 9.0 %) 9.4 H 7.9 Eos % (Auto) (0.3 - 3.7 %) 1.2 1.0 Baso % (Auto) (0.0 - 2.0 %) 0.2 0.2 Neut # (Auto) (2.0 - 7.6 x10 3/uL) 6.31 8.23 H Lymph # (Auto) (1.0 - 3.8 x10 3/uL) 2.05 2.06 [place] # (Auto) (0.1 - 0.8 x10 3/uL) 0.89 H 0.91 H Eos # (Auto) (0.0 - 0.2 x10 3/uL) 0.11 0.12 Baso # (Auto) (0.0 - 0.2 x10 3/uL) 0.02 0.02 Abs Immat Gran (auto) (0.00 - 0.03 x10 3/uL) 0. 10 H 0.14 H Add Manual Diff NO NO Immature Gran % (0.0 - 2.0 %) 1.1 1.2 Nucleated RBC % (0 - 0 %) 0.0 0.0 Nucleated RBCs # (Man) (0.0 - 0.1 x10 3/uL) 0.0 0 0.00 Serology Hep Bs Antigen (NonReactive INDEX) NON REACTIVE HIV 1 2 Antibody (NONREACTIVE INDEX) NONREACTIV E Urines Urine Color (YEL/STRAW) STRAW YELLOW Urine Appearance (CLEAR) SL CLOUDY CLEAR Urine pH (5.0 - 7.0) 8.0 H 6.0 Ur Specific [place] (1.005 - 1.030) 1.009 1.016 Urine Protein (NEGATIVE) NEGATIVE NEGATIVE Urine Glucose (UA) (NEGATIVE) NEGATIVE NEGATIVE Urine Ketones (NEGATIVE) NEGATIVE NEGATIVE Urine Blood (NEGATIVE) NEGATIVE NEGATIVE Urine Nitrite (NEGATIVE) NEGATIVE NEGATIVE Urine Bilirubin (NEGATIVE) NEGATIVE NEGATIVE Urine Urobilinogen (0.2 - 1.0 mg/dL) 0.2 0.2 Ur Leukocyte Esterase (NEGATIVE) NEGATIVE NEGAT JASMINE Urine RBC (0 - 3 RBC/HPF) 0-3 0-3 Urine WBC (0 - 3 WBC/HPF) 4-9 H 0-3 Ur Squamous Epith Cells (NONE SEEN /HPF) 11-25 H 0-5 Urine Bacteria (NONE SEEN /HPF) TRACE NONE SEEN Urine Mucus (NONE SEEN /LPF) TRACE TRACE Urine Yeast (NONE /HPF) 1+ H Diagnosis, Assessment Plan Diagnosis, Assessment Plan Free Text A P: 28 yr old p2113 LMP: unk EDC : 03/16/19 @ 30+3 dated by 11+2 week sono on sent to labor and delivery for pre-eclampsia evaluation seconfry to complaints of headaches and elevated LFT on MFM labs. She has no acute complaints at this time. Den ies nausea, abd pain, vaginal bleeding or LOF. +FM. 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 Early GCT: 87 cHTN - On labetalol 300mg TID. Hx of preeclampsia on LDA daily. RH neg for rhogam at 29 weeks and Eval at delive ry Multiparity Desires tubal ligation Delivery plan: >/= 37 weeks OBhx: Pre-term c/s x 1, FT c/s x 2, SAB x 1. GynHx: Reg menses, denies fibroids, cyst, STD's or abnormal pap MHx: Denies SurgHx: C/S x 2, addenoidectomy Family Hx: Denies SHx: Denies Alcohol, Cigarette and illicit drug Use Meds: PNV Allergy: NKDA Vitals: Stable Gen: NAD HEENT: Normocephalic. CVS: S1S2 Lung: clear b/l, mild rhonchi- 10/18/18 Abd: Old transverse scar on abdomen. NT, ND Ext: No calf tenderness, No DVT signs, Trace Reji ma Pelvic: Normal external fema le genitalia, No lesions or masses in vulva, vagina or cervix. Labs: T S: O Neg Antibody: Neg HIV: Neg HbsAg: Neg Rubella: Immune VZ: Neg RPR: NR Pap- NFM -2016 NIPT: Low risk- Male AFP- WNL GCT: 190mg/dl GTT: 91/202/101/127 NIPT: Male- Low risk 01/06/19- Limited sono for FHR: 129BPM. 07/14/18-sono: +gestation sac like structure, Yo lk sac. Imp: IUP @ 30+3 weeks GA with above Issues. Hewitt saminitis Plan: admit to labor and delivery for PI eval per [facility] labs and repeat at 1031 RPT #:[id number] END OF REPORT 2018-12-23 18:21:00-00:00 [facility] ([facility]) OB Disch Undelivered REPORT#:[id number] REPORT STATUS: Signed DATE:12/23/18 TIME: 1820 PATIENT: REYNA EARLY UNIT #: [id number] ROOM/BED: [place] [address] : 90 AGE: 28 SEX: F ATTEND: Frank Torres MD ADM AUTHOR: Gabriel Torres MD * ALL edits or amendments must be made on the el [employer]/computer document * Subjective Subjective Admission EGA (wks/days): 24+1 Current EGA weeks/days: 24+2 Status/Day: hospital day (day 1) Objective General VS: Last Documented: Result Date Time B/P Mean 84.0 11/26 1226 B/P 122/60 11/26 1226 Temp 36.5 11/26 1226 Pulse 75 11/26 1226 Physical Exam Cervical/ exam: Dilatation (cm): 0 - closed Uterine activity: Monitor: toco Intensity: moderate Procedures performed: ultrasound: abdominal, ult rasound: transvaginal HEENT: normocephalic w/o injury Cardiac: normal rhythm Lungs: clear to auscultation Neuro: Exam: alert, oriented x3, normal speech Abdomen: gravid, soft, no abnormal tenderness, n o guarding, no rebound tenderness, normoactive bowel sounds, Obese Uterus: non-tender Discharge Undelivered Discharge Undelivered Assessment: Patient is a 28 year old P2113 at 24+1 gestation admitted for kidney stones. Hospital course: received IV hydration and pain mgmt. Reported im proved symptoms. Stable for discahrge home today. Admission diagnosis: Renal stones Instructions: routine instr sheet given, instr a nd warnings rev'd, specific instr as noted Warnings: bleeding, nausea/v omit/dehydration, labor warnings, preeclampsia signs /sympt, decreased movement, fever Diet: regular Activity and restrictions: normal - up ad arya Discharge meds: Continue taking these medications: PNV WITH FE FUMARATE/FA () 1 EACH TAB 1 TABLET ORAL DAILY. IBUPROFEN (MOTRIN) 800 MG TAB 800 MILLIGRAM ORAL EVERY 8 HR NEEDED. as nee ded for ABDOMINAL CRAMPS/PAIN Qty = 45 HYDROcodone/APAP (NORCO 5/325) 1 TAB TAB 1 TABLET ORAL EVERY 6 HOURS NEEDED. as neede d for PAIN Prescriptions: on chart Procedures performed: ultrasound: abdominal Consultation(s) performed: Consultation performed: perinatology Discharge condition: stable Discharge to: home Follow up with: crucible furnace tender Follow up in: 2 weeks at 183 RPT #:[id number] END OF REPORT 2018-12-15 10:53:00-00:00 [facility] ([facility] EMERGENCY PROVIDER REPORT REPORT#:[id number] REPORT STATUS: Signed DATE:12/15/18 TIME: 1053 PATIENT: REYNA EARLY UNIT #: [id number] ROOM/BED: AGE: 28 SEX: F PCP PHYS: Gabriel Torres MD SERVICE AUTHOR: Shanice Rhodes DO * ALL edits or amendments must be made on the el [employer]/computer document * Shanice Rhodes. 12/15/18 1053: HPI-URI/Cough/Cold General Confirmed Patient Yes Presentation Chief Complaint Cough, non-productive Hx Obtained From Patient Onset Occurred Days ago Symptom Duration Since onset Progression since Onset Unchanged Context /Sexual Hx Status Positive - ED urine HCG Free Text HPI Notes Free Text HPI Notes 28 yo F who is currently 28 weeks pregna nt w/ a PMHx of HTN presents to ED c/o cough onset days ago. Pt reports recently being dx'ed w/ the flu and has been taking tamiflu. She notes sxs have not resolved and continues w/ a persistent cough. Pt states cough fluctuates from a dry cou gh to a productive cough. Portions of this section were scribed by Mary Villegas on 12/15/18 at 1255 Review of Systems ROS Statements All systems rev neg except as marked. Focused Review of Systems Respiratory Reports: Cough, non-productive, Cough, productiv e. Additional Review of Systems Female Reports: . Portions of this section were scribed by Mary Villegas on 12/15/18 at 1127 Past Medical History - Adult Stated Complaint DX WITH THE FLU FEELS WORSE 28 WKS PREG Allergies Coded Allergies: No Known Allergies (12/15/18) Home Medications Reported Medications IBUPROFEN (MOTRIN) 800 MG PO Q8H PRN PRN ABDOMIN AL CRAMPS/PAIN IBUPROFEN (MOTRIN) 800 MG PO Q8H PRN PRN ABDOMI NAL CRAMPS/PAIN #45 Ref 2 PNV WITH FE FUMARATE/FA () 1 TAB PO GUDELIA Y HYDROcodone/APAP (NORCO 5/325) 1 TAB PO Q6H PRN PRN PAIN LABETALOL (TRANDATE) Pt reports no significant: Past surgical history Past Medical History: Reports: Hypertension. Drug Use Denies recreational drugs Other Social History Local resident Portions of this section were scribed by Mary Villegas on 12/15/18 at 1053 Physical Exam Vital Signs Vital Signs First Documented: Result Date Time Pulse Ox 98 12/15 1100 B/P 133/77 12/15 1100 B/P Mean 95 12/15 1100 O2 Delivery Room air 12/15 1100 Temp 36.6 12/15 1100 Pulse 100 12/15 1100 Resp 20 12/15 1100 Last Documented: Result Date Time Pulse Ox 98 12/15 1100 B/P 133/77 12/15 1100 B/P Mean 95 12/15 1100 O2 Delivery Room air 12/15 1100 Temp 36.6 12/15 1100 Pulse 100 12/15 1100 Resp 20 12/15 1100 Review of Vital Signs Reviewed Focused PE General/Const General/Const Awake, Alert, No acute di stress, Well appearing, Well developed , Cooperative Eyes Eyes Atraumatic, PERRL, EOMI, No nystagmus Ears/Nose/Throat Ears/Nose/Throat Airway patent, Mucous membrane s moist MS Neck Neck Supple, Full range of motion, No adenopath y, No masses, No JVD, No carotid bruit Resp/Chest Respiratory/Chest Breath sounds NL, No respirat ory distress, No rales, No rhonchi, No wheezing Cardiovascular Cardiovascular Heart rate NL, Regular rhythm, H eart sounds NL, No gallop, No murmurs, No rubs Abdomen/GI Abdomen/GI Soft, Non-tender, No pulsatile mass, no bruit Skin Skin No rash, Warm, Dry, Intact Neurologic Neurologic Oriented X3, Speech NL, CN II - XII intact, Cerebellar NL Additional PE MS Head Head Atraumatic, Normocephalic MS Back Back Inspection NL, Full range of motion MS Lower Extrem Lower Ext/Pelvis/MS No swelling, Non-tender, di stal pulses intact Portions of this section were scribed by Mary Villegas on 12/15/18 at 1254 Interpretation Diagnostics Lab Results Interpretation Results Laboratory Tests: 12/15 1325 Urines Urine Color (YEL/STRAW) YELLOW Urine Appearance (CLEAR) CLEAR Urine pH (5.0 - 7.0) 6.0 Ur Specific [place] (1.005 - 1.030) 1.017 Urine Protein (NEGATIVE) NEGATIVE Urine Glucose (UA) (NEGATIVE) NEGATIVE Urine Ketones (NEGATIVE) NEGATIVE Urine Blood (NEGATIVE) NEGATIVE Urine Nitrite (NEGATIVE) NEGATIVE Urine Bilirubin (NEGATIVE) NEGATIVE Urine Urobilinogen (0.2 - 1.0 mg/dL) 0.2 Ur Leukocyte Esterase (NEGATIVE) NEGATIVE Urine RBC (0 - 3 RBC/HPF) 0-3 Urine WBC (0 - 3 WBC/HPF) 0-3 Ur Squamous Epith Cells (NONE SEEN /HPF) 0-5 Urine Bacteria (NONE SEEN /HPF) TRACE Urine Mucus (NONE SEEN /LPF) TRACE Microbiology: Date/Time Procedure - Status Source Growth 12/15 1053 Group A Streptococcus Screen (NAVIN) - RES THROAT 12/15 1053 Streptococcus Culture - RES THROAT Recent Impressions: RADIOLOGY - XR CHEST 2 V 12/15 1152 Report Impression - Status: SIGNED Entered: 12/15/2018 1159 IMPRESSION: No acute pulmonary abnormality. Impression By: [email or web address] - Roni Pal M.D. Point of Care Testing Pulse Oximetry Pulse Ox % 98 On: Room air Interpretation Interpreted by me, Pulse oximetr y normal Time 1100 Portions of this section were scribed by Mary Villegas on 12/15/18 at 1127 Re-Evaluation MDM Free Text MDM Notes Free Text MDM Notes Will do chest xray and strep swab Differential Diagnosis Differential Diagnosis Bronchitis, Phary ngitis, streptococca, Pneumonia, Upper resp infection Portions of this section were scribed by Mary Villegas on 12/15/18 at 1134 Patient Discharge Departure Vital Signs/Condition Vital Signs First Documented: Result Date Time Pulse Ox 98 12/15 1100 B/P 133/77 12/15 1100 B/P Mean 95 / 1100 O2 Delivery Room air 12/15 1100 Temp 36.6 12/15 1100 Pulse 100 / 1100 Resp 20 12/15 1100 Last Documented: Result Date Time Pulse Ox 98 12/15 1100 B/P 133/77 12/15 1100 B/P Mean 95 / 1100 O2 Delivery Room air 12/15 1100 Temp 36.6 / 1100 Pulse 100 03/ 1100 Resp 20 12/15 1100 All vital signs available at the time of this en try have been reviewed. Supervising Physician Note MidLv/Doc Saw Pt 2 I have personally interviewed and examined the p atient. All charts, labs, and imaging studies were reviewe d. I agree with this PA/head sampler findings, exam and plan. Scribe Statement Mary Villegas, 12/15/18 10 53, scribing for and in the presence of [ ]. Signed By: Mary Villegas, 12/15/18 1053 Provider Scribed Statement I personally performed the s ervices described in this documentation and reviewed the documentation that was dictated to the scrib e(s) in my presence, and it accurately records my words and actions. Shanice Salinas, 12/15/18 Portions of this section were scribed by Mary Villegas on 12/15/18 at 1254 David Wright 12/15/18 1439: HPI-URI/Cough/Cold General Initial Greet Date/Time 12/15/18 1048 Portions of this section were scribed by Allyssa Slaughter on 12/15/18 at 1439 Physical Exam Vital Signs Vital Signs Portions of this section were scribed by Allyssa Slaughter on 12/15/18 at 1439 Interpretation Diagnostics Lab Results Interpretation Results Portions of this section were scribed by Allyssa Slaughter on 12/15/18 at 1439 Re-Evaluation MDM Free Text MDM Notes Additional Text Patient tested positive for influenza A, tolerating PO, will d/c to home. Doubt above emergent diagnoses or other serious bacter ial illness. Patient already taking tamiflu. Will instruc t on conservative self-care and techniques to reduce spread for this suspected transient and self-res olving illness. Instructed to follow-up with their PCP in 48 hours for wound evaluation. Educated on return to ED criteria. Mother agreed and acknowledged unde rstanding of the plan. Re-Evaluation/Progress Re-Evaluation/Progress Text/Dict Note Discussed all results with pt and plan to d/c ho me. Pt instructed to f/u with her OB. Pt aware and agrees with plan. Time of Re-Eval 1439 Portions of this section were scribed by Allyssa Slaughter on 12/15/18 at 1439 Patient Discharge Departure Vital Signs/Condition Vital Signs Condition Stable Clinical Impression Clinical Impression Primary Impression: Influenza Disposition Decision Discharge )( Discharged to Home Yes )( Time 1440 )( Date 12/15/18 Discharge/Care Plan Counseled Regarding Diagnosi s, Lab results, Imaging studies, Need for follow-up, When to return to ED Discharge Note I have spoken with the patie nt and/or caregivers. I have explained the patient's condition, diagnoses and marta atment plan based on the information available to me at this time. I have answered the patient's and/ or caregiver's questions and addressed any concerns. The patient and/or careg margaret have as good an understanding of the patient 's diagnosis, condition and treatment plan as can be expected at this point. The vital signs have bee n stable. The patient's condition is stable and appr opriate for discharge from the emergency department. The patient will pursue further outpatient evalu ation with the primary care physician or other designated or consulting phys ician as outlined in the discharge instructions. The patient and/or caregivers are agreeable to this plan of care and follow-up instructions have been exp lained in detail. The patient and/or caregivers have received these instructio ns in written format and have expressed an understanding of the discharge inst ructions. The patient and/or caregivers are aware that any significant change in condition or worsening of symptoms should prompt an immediate return to [facility] or the closest emergency department or a call to 911. Supervising Physician Note Scribe Statement Jaycee Slaughter, 12/15/18 1440 , scribing for and in the presence of [David Soares]. Signed By: Jaycee Slaughter, 12/15/18 1440 Provider Scribed Statement I personally performed the s ervices described in this documentation and reviewed the documentation that was dictated to the scrib e(s) in my presence, and it accurately records my words and actions. David Wright, 12/16/18 Portions of this section were scribed by Allyssa Slaughter on 12/15/18 at 1439 Electronically Signed by Shanice Rhodes DO on 0 12/16/18 at 0815 Electronically Signed by David Wright on 11/27 10/16 at 1000 RPT #:[id number] END OF REPORT 2018-12-12 21:12:00-00:[address] [facility] ([facility]) EMERGENCY PROVIDER REPORT REPORT#:[id number] REPORT STATUS: Signed DATE:12/12/18 TIME: 2111 PATIENT: REYNA EARLY UNIT #: [id number] ROOM/BED: AGE: 28 SEX: F PCP PHYS: Gabriel Torres MD SERVICE AUTHOR: Zain Harris MD * ALL edits or amendments must be made on the el [employer]/computer document * [id number] Illness General Confirmed Patient Yes Initial Greet Date/Time 12/12/182053 PCP no PCP Dr. Gabriel Torres - DISABILITY BENEFITS SPECIALIST Presentation Chief Complaint Cough Hx Obtained From Patient Onset Occurred Weeks ago (2) Symptom Duration Since onset Progression since Onset Unchanged, Constant Context /Sexual Hx 5 Para 3 Abortions 1 Rh Status/Blood Type Blood type O Free Text HPI Notes Free Text HPI Notes 28 y/o (A1) F w / PMHx HTN presents to ED w/ c/o dry cough x 1 week. Pt reports sore throat, nausea, pleuritic pain c hest congestion in assoc w/ sx. She states sx are consis tent w/ prior influenza. Pt is 27.5 weeks . Pt denies fever, vaginal fluid leakage o r bleeding. Home interventions include Tylenol, Robitussin, Vicks steam w/o significant relief. No other complaints. Portions of this section were scribed by Analy Forbes on 12/13/18 at 0510 Review of Systems ROS Statements All systems rev neg except as marked. Focused Review of Systems Constitutional Denies: Chills, Lethargy. Ears/Nose/Throat Reports: Sore throat. Respiratory Reports: Cough, non-productive, Pleuritic pain. GI Reports: Nausea. Additional Review of Systems Female Reports: . Denies: Vaginal bleeding - ab nl, Vaginal discharge. Portions of this section were scribed by Analy Forbes on 12/13/18 at 0510 Past Medical History - Adult Stated Complaint COUGH,CONGESTION, SOB. 7 MONTHS PREG Allergies Coded Allergies: No Known Allergies (11/10/18) Home Medications Reported Medications IBUPROFEN (MOTRIN) 800 MG PO Q8H PRN PRN ABDOMIN AL CRAMPS/PAIN IBUPROFEN (MOTRIN) 800 MG PO Q8H PRN PRN ABDOMI NAL CRAMPS/PAIN #45 Ref 2 PNV WITH FE FUMARATE/FA () 1 TAB PO GUDELIA Y HYDROcodone/APAP (NORCO 5/325) 1 TAB PO Q6H PRN PRN PAIN LABETALOL (TRANDATE) Past Medical History: Reports: Hypertension. Drug Use Denies recreational drugs Smoking status for patients 13 years old or olde r: Never Smoker Other Social History Local resident Portions of this section were scribed by Analy Forbes on 12/12/18 at 2251 Physical Exam Vital Signs Vital Signs First Documented: Result Date Time Pulse Ox 98 12/12 2044 B/P 130/78 12/12 2044 B/P Mean 95 12/12 2044 O2 Delivery Room air 12/12 2044 Temp 36.6 12/12 2044 Pulse 99 12/12 2044 Resp 12/12 Last Documented: Result Date Time Pulse Ox 98 12/12 2044 B/P 130/78 12/12 2044 B/P Mean 95 12/12 2044 O2 Delivery Room air 12/12 2044 Temp 36.6 12/12 2044 Pulse 99 12/12 2044 Resp 12/12 Review of Vital Signs Reviewed Focused PE General/Const General/Const Alert, No acute distress, Not tox ic appearing Appearance/Presentation Obese. Eyes Eyes EOMI Ears/Nose/Throat Ears/Nose/Throat Mucous membranes moist, Pharyn x NL MS Neck Neck Atraumatic, Supple Resp/Chest Respiratory/Chest Breath sounds NL, Breath soun ds = bilat, No respiratory distress Cardiovascular Cardiovascular Heart rate NL, Regular rhythm, H eart sounds NL, Peripheral circulation NL Abdomen/GI Abdomen/GI Non-tender, No guarding, No rebound, BS normoactive, No distention Text/Dict Notes gravid uterus Skin Skin Color NL, Warm, Dry, Intact Neurologic Neurologic Oriented X3, Speech NL, CN II - XII intact Additional PE MS Head Head Atraumatic, Normocephalic MS Lower Extrem Lower Ext/Pelvis/MS Full range of motion, Neuro logic intact Psychiatric Psychiatric Affect NL, Mood NL, Not suicidal, N ot homicidal, No hallucinations Portions of this section were scribed by Analy Forbes on 12/13/18 at 0510 Interpretation Diagnostics Lab Results Interpretation Results Microbiology: Date/Time Procedure - Status Source Growth 12/12 2222 Influenza Virus Type B Antigen - COM P NASOPHARG 12/12 2222 Influenza Virus Type A Antigen - COM P NASOPHARG Recent Impressions: RADIOLOGY - XR CHEST 1 V 12/12 2199 Report Impression - Status: SIGNED Entered: 12/12/20182204 IMPRESSION: 1. No acute cardiopulmonary process. Impression By: [email or web address] - Nitesh Christiansen D.O. Lab Imaging Statement Laboratory radiographic studies reviewed and con sidered in the medical decision-making. Point of Care Testing Pulse Oximetry Pulse Ox % 98 On: Room air Interpretation Interpreted by me, Pulse oximetr y normal Time 2044 Radiography X-Ray Chest Text/Dict Note IMPRESSION: 1. No acute cardiopulmonary process. Interpretation/Wet Read by Interpret - Radiolog ist Reviewed by ED physician Portions of this section were scribed by Analy Forbes on 12/13/18 at 0510 Re-Evaluation MDM ED Course Medication(s) Ordered Medication(s) Ordered: Respiratory Tract Agents Sig/Farrukh Start time Last Medication Dose Route Stop Time Status Admin Benzonatate 200 MG X1ED STA 12/12 2122 DC 11/26 7 PO 12/12 Differential Diagnosis Differential Diagnosis Allergic rhinitis, Influe nza, Pharyngitis, strep, Pharyngitis, viral, Pneumonia, Sinusitis, Viral syndrome Portions of this section were scribed by Analy Forbes on 12/12/18 at 2251 Patient Discharge Departure Vital Signs/Condition Vital Signs First Documented: Result Date Time Pulse Ox 98 12/12 2044 B/P 130/78 12/12 2044 B/P Mean 95 12/12 2044 O2 Delivery Room air 12/12 2044 Temp 36.6 12/12 2044 Pulse 99 12/12 2044 Resp 18 12/12 2044 Last Documented: Result Date Time Pulse Ox 98 12/12 2044 B/P 130/78 12/12 2044 B/P Mean 95 12/12 2044 O2 Delivery Room air 12/12 2044 Temp 36.6 12/12 2044 Pulse 99 12/12 2044 Resp 18 12/12 2044 All vital signs available at the time of this en try have been reviewed. Condition Stable Clinical Impression Clinical Impression Primary Impression: Cough Disposition Decision Discharge )( Discharged to Home Yes )( Time 2343 )( Date 12/12/18 Discharge/Care Plan Prescriptions Tamiflu Tessalon Perles Prednisone Quality Measures RH- Risk Fet Bld Exposure No risk blood ex pos Supervising Physician Note Scribe Statement Corine Forbes, 12/12/182111 , scribing for and in the presence of Dr. Harris. Signed By: Corine Forbes, 12/12/182111 Provider Scribed Statement I personally performed the s ervices described in this documentation and reviewed the documentation that was dictated to the scrib e(s) in my presence, and it accurately records my words and actions. Zain Crowley, 12/14/18 Portions of this section were scribed by Analy Forbes on 12/12/18 at 2343 at 2202 RPT #:[id number] END OF REPORT 2018-11-26 15:52:00-00:[address] [facility] ([facility] Consultation Note REPORT#:[id number] REPORT STATUS: Signed DATE:11/26/18 TIME: 1552 PATIENT: REYNA EARLY UNIT #: [id number] ROOM/BED: [place] [address] : 90 AGE: 28 SEX: F ATTEND: Frank Torres MD ADM AUTHOR: Santos Carlson MD * ALL edits or amendments must be made on the [employer]/computer document * History Past History Allergies: Coded Allergies: No Known Allergies (11/10/18) Objective Physical Exam General appearance: alert Results Findings/Data: Laboratory Tests 11/26 1500 Urines Urine Color (YEL/STRAW) YELLOW Urine Appearance (CLEAR) SL CLOUDY Urine pH (5.0 - 7.0) 8.0 H Ur Specific [place] (1.005 - 1.030) 1.012 Urine Protein (NEGATIVE) NEGATIVE Urine Glucose (UA) (NEGATIVE) NEGATIVE Urine Ketones (NEGATIVE) NEGATIVE Urine Blood (NEGATIVE) NEGATIVE Urine Nitrite (NEGATIVE) NEGATIVE Urine Bilirubin (NEGATIVE) NEGATIVE Urine Urobilinogen (0.2 - 1.0 mg/dL) 0.2 Ur Leukocyte Esterase (NEGATIVE) NEGATIVE Urine RBC (0 - 3 RBC/HPF) 0-3 Urine WBC (0 - 3 WBC/HPF) 0-3 Ur Squamous Epith Cells (NONE SEEN /HPF) 6-10 H Urine Bacteria (NONE SEEN /HPF) TRACE Urine Mucus (NONE SEEN /LPF) TRACE MFM consultation (late note - seen at about 140P M) Pt seen and evaluated - knwon to me from prior e amanda Tripp is a 28yo at 24w2d (EDC 03/16) admitted with suspected kidney stone She is feeling well at present, pain almost enti fab resolved Denies crampiong / Bleeding Good FM reported VSSAF abd. soft NT no CVAT no Sarai's 1+ PE FHT mod. BTBV, 10x10 accels, mild intermittent v ariables, no significant CTX, cat II labs reviewed - poss. UTI Sono today: transverse lie, very limited views due to maternal habitus, nl FHR, post. placenta, EFW 6eu04ks (809g, 87%ile), nl A FI 19.0 A/P 28yo at 24w2d (EDC 03/16) - likely kidney stone / likely UTI may have passed reviewed cont. PO hydration and precautions recommend tx for UTI and UC today and UC about e very 2 months may be considered for DC home if remains stable - CHTN / Hx of Preeclampsia x3 stable on PO labetalol no evidence of PIH at present to cont. LDA and precautions and BP monitoring d iscussed - Migraines stable - BMI > 50 will follow - Prior CSx3 for RCS Thank you for your verbal consultation and for s xiomy in the care of your patient! Floor time 50min Electronically Signed by Santos Carlson MD on at 1609 RPT #:[id number] END OF REPORT 2018-11-25 18:15:00-00:00 [facility] ([facility]) OB Admission / H P REPORT#:[id number] REPORT STATUS: Signed DATE:11/25/18 TIME: 1814 PATIENT: REYNA EARLY UNIT #: [id number] [place] [facility] [place] AGE: 28 SEX: F ATTEND: Frank Torres MD ADM AUTHOR: Gabriel Torres MD * ALL edits or amendments must be made on the el [employer]/computer document * OB Admission H P Hx Allergies Coded Allergies: No Known Allergies (12/15/18) Objective Physical Exam Uterine activity: Monitor: toco Intensity: moderate Diagnosis, Assessment Plan Diagnosis, Assessment Plan Free Text A P: 28 yr old [id number] LMP: unk EDC: 03/16/19 @ 24+1 dated by 11+2 week sono on presenting to labor and d byron with complaints of right back pain x 3 hors prior to presentation. Pain is 9/10 in intensity . Complains of nausea and vomiting. She has no other acute complaints at t his time. Denies abd pain, vaginal bleeding, fevers or chills. 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 Early GCT: 87 Likely cHTN Hx of preeclampsia on LDA daily. RH neg for rhogam at 29 weeks and Eval at delive ry Multiparity Desires tubal ligation Delivery plan: >/= 37 weeks OBhx: Pre-term c/s x 1, FT c/s x 2, SAB x 1. GynHx: Reg menses, denies fibroids, cyst, STD's or abnormal pap MHx: Denies SurgHx: C/S x 2, addenoidectomy Family Hx: Denies SHx: Denies Alcohol, Cigarette and illicit drug Use Meds: PNV Allergy: NKDA Vitals: Stable Gen: NAD HEENT: Normocephalic. CVS: S1S2 Lung: clear b/l, mild rhonchi- 10/18/18 Abd: Old transverse scar on abdomen. NT, ND Ext: No calf tenderness, No DVT signs, Trace Reji ma Pelvic: Normal external fema le genitalia, No lesions or masses in vulva, vagina or cervix. Labs: T S: O Neg Antibody: Neg HIV: Neg HbsAg: Neg Rubella: Immune VZ: Neg RPR: NR Pap- NFM -2016 NIPT: Low risk- Male AFP- WNL 07/14/18-sono: +gestation sac like structure, Yo lk sac. Imp: IUP @ 24+1 weeks GA with suspected kidney s tones. Plan: admit to antepartum IV hydration Pain mgmt renal sono home if improvement at 1820 RPT #:[id number] END OF REPORT 2018-11-25 07:25:00-00:00 [facility] ([facility]) OB Triage Visit REPORT#:[id number] REPORT STATUS: Signed DATE:11/25/18 TIME: 724 PATIENT: REYNA EARLY UNIT #: [id number] ROOM/BED: [place] [address] : 90 AGE: 28 SEX: F ATTEND: Kyle Schultz MD ADM DT: AUTHOR: La Nena Dong MD * ALL edits or amendments must be made on the el [employer]/computer document * Subjective Subjective Patient reports: abdominal pain, vomiting History Nursing Documentation Review Nursing data: The data set between the solid lines has been im ported from nursing documentation. Any exceptions have been noted be low under Provider comments. Current data Steroids prior to arrival: ROM date: ROM time: EGA (weeks/days): EGA at admit (weeks): EDC date: Prior history : Para: Term: : Abortions spontaneous: Abortions induced: Living children: Ectopic: Stillbirths: Live births: deaths: Number of previous C/S: Reported maternal labs/data Blood type: Rh type: Rubella: Hepatitis B: HIV+ exposure test: VDRL: Group B beta strep: Rho(D) immune globulin this preg: Monitor mode - UA: Feeding preference: Provider comments on imported nursing data: [] Chief complaint Chief complaint: Left flank, groin pain and vomi ting HPI: 28 yo at 25 6/7 weeks EGLily presents to [facility] c/o acute onset of left flank and groin pain since 0 515 today. The pain is progressing and is currently 10/10. She also c/o vomiting currently. She josé miguel es vaginal bleeding, LOF or contractions. She reports no rmal movement. She states this pain feels like it did when she had a kidney stone approximately 3 years ago. history: : 4 Term: 3 Living children: 3 Previous : unknown uterine incision Number of prev : 3 Current Conditions of : previous uterine incisi on, chronic HTN, migraines Past history Past medical history: hypertension, migraines, k idney stones, morbid obesity Past surgical history: , lithotripsy, T onsillectomy Social history: no alcohol use, no tobacco use, no drug use Medications: Home Medications: Medication Dose/Rte/Freq Days Qty Entered Last Max Daily Dose Reviewed IBUPROFEN (MOTRIN) 800 MG PO 45 08/27/17 Strength: 800 MG TAB Q8H PRN PRN 0918 ABDOMINAL CRAMPS/PAIN PNV WITH FE 1 TAB PO DAILY 08/24/17 FUMARATE/FA 0608 () Strength: 1 EACH TAB HYDROcodone/APAP 1 TAB PO 08/27/17 (NORCO 5/325) Q6H PRN PRN PAIN 1415 Strength: 1 TAB TAB Current Hospital Medications: Central Nervous System Agents Sig/Farrukh Start time Last Medication Dose Route Stop Time Status Admin Morphine Sulfate 2 MG X1ED STA 11/25 0725 DC (morphine SULFATE) IV 11/25 0726 Electrolytic, Caloric, And Kong Sig/Farrukh Start time Last Medication Dose Route Stop Time Status Admin Lactated Ringer's 1,000 ML X1ED STA 11/25 0713 AC (LACTATED RINGERS) IV 11/25 1352 Fioricet Labetalol 200mg bid Allergies Coded Allergies: No Known Allergies (11/10/18) Review of Systems Systems reviewed negative: allergy/immun, cardio vascular, constitutional, CV, endocrine, ENT, eyes, heme, musculoskeletal, yaw ro, psych, respiratory, skin Objective General VS: Last Documented: Result Date Time B/P Mean 86.0 11/25 0546 B/P 123/60 11/25 645 Pulse 71 11/25 645 Physical Exam: External genitalia: normal FHR evaluation: Baseline: 150 bpm Uterine activity: Monitor: toco Frequency (description): none Diagnosis, Assessment Plan Diagnosis, Assessment Plan Problem List/A P: 1. Previous section 2. Flank pain, acute 3. 25 weeks gestation of 4. Hypertension during Free text A P: 1. 28 yo at 25 6/7 weeks EGA 2. Left Flank pain -acute onset - r/o kidney sto ne. Analgesia, anti-emetics, IVF. u/s pending 3. FHT's - 150's. Impossible to keep baby on the monitor due to maternal body habitus and gestational age. Will do intermitten t monitoring 4. CHTN Recommend admission for pain management and poss ible urology consultation pending u/s results. Dr. Torres agrees with plan of care Assessment: severe flank pain Plan: admit for observation and pain management Plan discussed with: patient, collaborating MD, nurse Attestations Attestation needed: not applicable at 0818 RPT #:[id number] END OF REPORT 2018-11-10 18:44:00-00:00 [facility] ([facility]) EMERGENCY PROVIDER REPORT REPORT#:[id number] REPORT STATUS: Signed DATE:11/10/18 TIME: 1843 PATIENT: REYNA EARLY UNIT #: [id number] ROOM/BED: AGE: 28 SEX: F PCP PHYS: Gabriel Torres MD SERVICE AUTHOR: Violeta Grijalva DO * ALL edits or amendments must be made on the el [employer]/computer document * HPI-Chest Pain Under 40 General Confirmed Patient Yes Initial Greet Date/Time 11/10/18 1725 Presentation Chief Complaint Shortness of breath Hx Obtained From Patient Sudden in Onset? Yes Onset Occurred Today Symptom Duration Since onset Progression since Onset Unchanged Context of Onset Coughing Quality Painful )( Migration/Movement None Associated with Reports: Cough, non-productive, Fever, Nausea, S hortness of breath, Vomiting. Free Text HPI Notes Free Text HPI Notes 28 yo F w/ PMHx of HTN prese nts to ED c/o SOB onset 2 days ago. Pt reports being currently 6 mths an d is having difficulty breathing w/ assoc N/V, non- productive cough, and CP. Sh e denies any abd pain or recent travel. Pt's last US was 3 weeks ago. . Portions of this section were scribed by Rosanne Lindsay on 11/10/18 at 1850 Portions of this section were scribed by Mary Villegas on 11/10/18 at 2058 Risk-Chest Pain Under 40 Risk Stratification )( Coronary Artery Disease Risk factors reviewed )( Pulmonary Embolism Risk factors reviewed )( AMI-Aspirin Aspirin Last 24 Hrs None Portions of this section were scribed by Rosanne Lindsay on 11/10/18 at 1850 Review of Systems ROS Statements All systems rev neg except as marked. Focused Review of Systems Respiratory Reports: Cough, non-productive, Shortness of mague ath. Cardiovascular Reports: Chest pain. Denies: Edema. GI Reports: Nausea, Vomiting. Skin Denies: Swelling. Additional Review of Systems Female Reports: . Portions of this section were scribed by Rosanne Lindsay on 11/10/18 at 1850 Portions of this section were scribed by Mary Villegas on 11/10/18 at 1920 Past Medical History - Adult Stated Complaint DIF. BREATHING, NONPROD COUGH, CONGESTION X2 DAYS Allergies Coded Allergies: No Known Allergies (11/10/18) Home Medications Reported Medications IBUPROFEN (MOTRIN) 800 MG PO Q8H PRN PRN ABDOMIN AL CRAMPS/PAIN IBUPROFEN (MOTRIN) 800 MG PO Q8H PRN PRN ABDOMI NAL CRAMPS/PAIN #45 Ref 2 PNV WITH FE FUMARATE/FA () 1 TAB PO GUDELIA Y HYDROcodone/APAP (NORCO 5/325) 1 TAB PO Q6H PRN PRN PAIN Pt reports no significant: Past surgical history Past Medical History: Reports: Hypertension. Smoking status for patients 13 years old or olde r: Never Smoker Portions of this section were scribed by Rosanne Lindsay on 11/10/18 at 1850 Physical Exam Vital Signs Vital Signs First Documented: Result Date Time Pulse Ox 98 11/10 1728 B/P 169/108 11/10 1728 B/P Mean 128 11/10 1728 O2 Delivery Room air 11/10 1728 Temp 36.7 11/10 1728 Pulse 108 11/10 1728 Resp 24 11/10 1728 Last Documented: Result Date Time Pulse Ox 100 11/10 2107 B/P 150/83 11/10 2107 B/P Mean 105 11/10 2107 O2 Delivery Room air 11/10 2107 Temp 37.1 11/10 2107 Pulse 100 11/10 2107 Resp 16 11/10 2107 Review of Vital Signs Reviewed Focused PE General/Const General/Const Awake, Alert, Well developed, Demurrage Man perative Text/Dict Notes Gravid uterus. Appearance/Presentation Obese. Eyes Eyes EOMI, Conjunctiva NL Resp/Chest Respiratory/Chest Breath sounds NL, No respirat ory distress, No rales, No rhonchi, No wheezing Cardiovascular Cardiovascular Regular rhythm, Heart sounds NL Heart Rate/Rhythm Tachycardia. Abdomen/GI Abdomen/GI Soft, Non-tender, No guarding, No re bound, No distention, Gravid uterus MS Lower Extrem Lower Ext/Pelvis/MS No swelling, Non-tender Skin Skin Color NL, Warm, Dry, Intact Neurologic Neurologic Oriented X3, Speech NL Psychiatric Psychiatric Affect NL, Mood NL Additional PE MS Head Head Normocephalic Ears/Nose/Throat Ears/Nose/Throat Airway patent, Mucous membrane s moist Portions of this section were scribed by Rosanne Lindsay on 11/10/18 at 1850 Portions of this section were scribed by Mary Villegas on 11/10/18 at 2031 Interpretation Diagnostics Lab Results Interpretation Results Laboratory Tests 11/10/18 1810: [Embedded Image Not Available] Laboratory Tests: 11/10 11/10 1847 1810 Chemistry Sodium (134 - 147 mEq/L) 140 Potassium (3.4 - 5.0 mEq/L) 3.6 Chloride (100 - 108 mEq/L) 107 Carbon Dioxide (21 - 33 mEq/L) 27 Anion Gap (0 - 20) 10 BUN (7 - 18 mg/dL) 5 L Creatinine (0.6 - 1.3 mg/dL) 0.5 L Glomerular Filtr Rate (110 - 120) 146.9 H Glucose (70 - 110 mg/dL) 86 Calcium (8.0 - 10.5 mg/dL) 9.0 Total Bilirubin (0.0 - 1.0 mg/dL) 0.20 AST (15 - 37 IUnit/L) 40 H ALT (15 - 65 IUnit/L) 28 Total Alk Phosphatase (20 - 125 IUnit/L) 86 Total Protein (6.4 - 8.2 g/dL) 7.4 Albumin (3.4 - 5.0 g/dL) 2.60 L Hematology WBC (4.5 - 11.0 x10 3/uL) 9.38 RBC (3.54 - 5.02 x10 6/uL) 3.68 Hgb (11.0 - 15.0 g/dL) 11.0 Hct (33.0 - 45.0 %) 34.7 MCV (81.0 - 99.0 fL) 94.3 MCH (27.0 - 33.0 pg) 29.9 MCHC (33.0 - 37.0 g/dL) 31.7 L RDW (11.5 - 14.5 %) 14.1 Plt Count (150 - 400 x10 3/uL) 306 MPV (7.0 - 9.0 fL) 10.3 H Neut % (Auto) (56.0 - 77.0 %) 73.3 Lymph % (Auto) (14.0 - 32.0 %) 14.3 [place] % (Auto) (4.8 - 9.0 %) 9.4 H Eos % (Auto) (0.3 - 3.7 %) 1.0 Baso % (Auto) (0.0 - 2.0 %) 0.3 Neut # (Auto) (2.0 - 7.6 x10 3/uL) 6.88 Lymph # (Auto) (1.0 - 3.8 x10 3/uL) 1.34 [place] # (Auto) (0.1 - 0.8 x10 3/uL) 0.88 H Eos # (Auto) (0.0 - 0.2 x10 3/uL) 0.09 Baso # (Auto) (0.0 - 0.2 x10 3/uL) 0.03 Abs Immat Gran (auto) (0.00 - 0.03 x10 3/uL) 0. 16 H Add Manual Diff NO Immature Gran % (0.0 - 2.0 %) 1.7 Nucleated RBC % (0 - 0 %) 0.2 H Nucleated RBCs # (Man) (0.0 - 0.1 x10 3/uL) 0. 02 Urines Urine Color (YEL/STRAW) YELLOW Urine Appearance (CLEAR) SL CLOUDY Urine pH (5.0 - 7.0) 7.0 Ur Specific [place] (1.005 - 1.030) 1.013 Urine Protein (NEGATIVE) NEGATIVE Urine Glucose (UA) (NEGATIVE) NEGATIVE Urine Ketones (NEGATIVE) NEGATIVE Urine Blood (NEGATIVE) NEGATIVE Urine Nitrite (NEGATIVE) NEGATIVE Urine Bilirubin (NEGATIVE) NEGATIVE Urine Urobilinogen (0.2 - 1.0 mg/dL) 0.2 Ur Leukocyte Esterase (NEGATIVE) NEGATIVE Urine RBC (0 - 3 RBC/HPF) 0-3 Urine WBC (0 - 3 WBC/HPF) 4-9 H Ur Squamous Epith Cells (NONE SEEN /HPF) 0-5 Ur Transition Epith Cell (NONE SEEN /HPF) TRACE Urine Bacteria (NONE SEEN /HPF) TRACE Urine Mucus (NONE SEEN /LPF) TRACE Microbiology: Date/Time Procedure - Status Source Growth 11/10 1845 Influenza Virus Type B Antigen - COM P NASAL 11/10 1845 Influenza Virus Type A Antigen - COM P NASAL Recent Impressions: ULTRASOUND - US LTD 11/10 1818 Report Impression - Status: SIGNED Entered: 11/10/20181903 IMPRESSION: Jose live intrauterine pregnanc y in vertex presentation. If anatomic survey has not been performed previously I do recommend that this be performed on a nonemergen t basis. Impression By: Saulo Martinez RADIOLOGY - XR CHEST 1 V 11/10 190 Report Impression - Status: SIGNED Entered: 11/10/20181924 IMPRESSION: No acute cardiopulmonary findings id entified. Impression By: Saulo Martinez Lab Imaging Statement Laboratory radiographic studies reviewed and con sidered in the medical decision-making. Point of Care Testing Pulse Oximetry Pulse Ox % 98 On: Room air Interpretation Interpreted by me, Pulse oximetr y normal Time 1729 ECG #1 Interpretation Text/Dict Note low voltage QRS Date 11/10/18 Time 1857 Interpreted by ED physician NL ECG Interpretation Normal sinus rhythm, No ST SENA, Normal axis Rate 94 Free Text I D Notes Free Text I D Notes ULTRASOUND - US LTD 11/10 1818 Report Impression - Status: SIGNED Entered: 11/10/20181903 Interpreted by Radiologist Reviewed by ED Physician IMPRESSION: Jose live intrauterine pregnanc y in vertex presentation. If anatomic survey has not been performed previously I do recommend that this be performed on a nonemergen t basis. Impression By: Saulo Martinez RADIOLOGY - XR CHEST 1 V 11/10 1899 Report Impression - Status: SIGNED Entered: 11/10/20181924 Interpreted by Radiologist Reviewed by ED Physician IMPRESSION: No acute cardiopulmonary findings id entified. Impression By: Saulo Martinez Portions of this section were scribed by Rosanne Lindsay on 11/10/18 at 1850 Portions of this section were scribed by Mary Villegas on 11/10/18 at 2058 Re-Evaluation MDM Re-Evaluation/Progress #1 Text/Dict Note Pt is in NAD and resting com fortably. Sxs are improved. Discussed diagnosis and plan to d/c home. Recommend f/u w/ PCP. Pt under stands and agrees w/ plan. Time of Re-Eval 2031 Re-Eval Status Improved ED Course Medication(s) Ordered Medication(s) Ordered: Cardiovascular Drugs Sig/Farrukh Start time Last Medication Dose Route Stop Time Status Admin Labetalol HCl 20 MG X1ED STA 11/10 173 DC IV 11/10 174 Consultation Consultation Referral/Consult Name Gabriel Torres MD [employer] Called DISABILITY BENEFITS SPECIALIST Requested Call Time 2029 Requested Call Date 11/10/18 Call Returned Call returned Call Returned Time 2029 Call Returned Date 11/10/18 [employer] Will see in office, Recommended to p rescribe labetalol 200mg BID Portions of this section were scribed by Rosanne Lindsay on 11/10/18 at 1850 Portions of this section were scribed by Mary Villegas on 11/10/18 at 203 Patient Discharge Departure Vital Signs/Condition Vital Signs First Documented: Result Date Time Pulse Ox 98 11/10 1729 B/P 169/108 11/10 172 B/P Mean 128 11/10 172 O2 Delivery Room air 11/10 1728 Temp 36.7 11/10 1728 Pulse 108 11/10 172 Resp 24 11/10 172 Last Documented: Result Date Time Pulse Ox 100 11/10 2107 B/P 150/83 11/10 2107 B/P Mean 105 11/10 2107 O2 Delivery Room air 11/10 2107 Temp 37.1 11/10 2107 Pulse 100 11/10 2107 Resp 16 11/10 2107 All vital signs available at the time of this en try have been reviewed. Condition Stable Clinical Impression Clinical Impression Primary Impression: Influenza Secondary Impressions: Hypertension during pregn marcial Disposition Decision Discharge )( Discharged to Home Yes )( Time 2031 )( Date 11/10/18 Discharge/Care Plan Counseled Regarding Diagnosi s, Lab results, Imaging studies, Prescriptions, Need for follow-up, When to return to ED Prescriptions labetalol, tamiflu Supervising Physician Note Scribe Statement Rosanne Lindsay, 11/10/18 190 3, scribing for and in the presence of [Dr. Grijalva]. Signed By: Rosanne Lindsay, 11/10/18 1903 Mary Villegas, 11/10/18 19 20, scribing for and in the presence of [ ]. Signed By: Mary Villegas, 11/10/18 192 Provider Scribed Statement I personally performed the s ervices described in this documentation and reviewed the documentation that was dictated to the scrib e(s) in my presence, and it accurately records my words and actions. Hailey Grijalva, 11/13/18 Portions of this section were scribed by Rosanne Lindsay on 11/10/18 at 1850 Portions of this section were scribed by Mary Villegas on 11/10/18 at 2031 Electronically Signed by Violeta Grijalva DO on at 0539 RPT #:[id number] END OF REPORT
[2023-03-27 02:08] LABS: Absolute Lymphocytes (CBC) 3.4 K/uL (0.7-4.9); Hematocrit 41.2 % (36.0-45.0); Lymphocytes % 32.2 % (15.3-44.8); MCV 90.4 fL (80-100); RBC Red Blood Cell Count 4.55 M/uL (3.86-4.86)
[2023-03-27] MEDS ORDERED: ONDANSETRON 4 MG/2 ML VIAL ONE (02:11)
[2023-03-27] MEDS ORDERED: FAMOTIDINE 20 MG/2 ML VIAL IV ONE (02:11)
[2023-03-27] MEDS ORDERED: NA CHLORIDE 0.9% 100 ML ONE (02:11)
[2023-03-27] MEDS ORDERED: METOCLOPRAMIDE 10 MG/2mL INJ ONE (02:11)
[2023-03-27] MEDS ORDERED: MORPHINE 4 MG/ML SYR ONE (02:11)
[2023-03-27] MEDS ORDERED: NA CHLORIDE 0.9% 1,000 ML ONE (02:11)
[2023-03-27 02:25] LABS: Albumin 3.4 g/dL (3.4-5.0); Bilirubin Total 0.3 mg/dL (0.2-1.0); Potassium 3.6 mEq/L (3.5-5.1); Protein, Total 7.6 g/dL (6.4-8.2)
[2023-03-27 02:30] LABS: Specific Gravity > 1.030 (1.005-1.030); Urine Bacteria <20 /HPF (<20); Urine Bilirubin NEGATIVE (Negative); Urine Blood Negative (Negative); Urine Clarity Extremely Turbid (Clear); Urine Color Yellow (Yellow); Urine Glucose NEGATIVE (Negative); Urine Mucus 1+ /HPF (None Seen); Urine Protein TRACE (Negative); Urine RBC <5 /HPF (None Seen); Urine Urobilinogen Normal (Normal); Urine pH 5.5 (5.0-7.0)
--- NOTE | 2023-03-27 04:37 | ER ---
Nurse's Notes [facility] Name: Qasim Resendez Age: 32 yrs Sex: Female : 1990 Arrival Date: 03/27/2023 Time: 01:45 Bed 5 Private MD: Diagnosis: Other cholelithiasis without obstruction;Other specified diseases of biliary tract;Cholelithiasis, biliary colic Presentation: 03/27 01:58 Chief complaint: Patient states: "I think I am having a gallbladder attack" pt report as6 upper abdominal pain that radiates to her back. Coronavirus screen: At this time, the client does not indicate any symptoms associated with coronavirus-19. Ebola Screen: No symptoms or risks identified at this time. Initial Sepsis Screen: Does the patient meet any 2 criteria? No. Patient's initial sepsis screen is negative. Does the patient have a suspected source of infection? No. Patient's initial sepsis screen is negative. Risk Assessment: Do you want to hurt yourself or someone else? Patient reports no desire to harm self or others. Onset of symptoms was March 27, 2023. 01:58 Acuity: ELÍAS 3 as6 01:58 Method Of Arrival: Ambulatory as6 Triage Assessment: 04:24 General: Appears uncomfortable, Behavior is calm, cooperative. Pain: Complains of pain kd3 in abdomen Pain radiates to back. GI: Bowel sounds present X 4 quads. Reports upper abdominal pain. SEED TESTER: 04:46 LMP N/A - unknown kd3 Historical: - Allergies: 01:58 No Known Allergies; as6 - PMHx: 01:58 Kidney stone; as6 - PSHx: 01:58 "kidney stone surgery"; section; Tonsillectomy; Ligation of fallopian tube; as6 - Immunization history:: Client reports receiving the 1st dose of the Covid vaccine, pfizer. - Social history:: Smoking status: Patient denies any tobacco usage or history of. - Family history:: not pertinent. Screenin:[address] [facility] ED Fall Risk Assessment (Adult) History of falling in the last 3 months, kd3 including since admission No falls in past 3 months (0 pts) Confusion or Disorientation No (0 pts) Intoxicated or Sedated No (0 pts) Impaired Gait No (0 pts) Mobility Assist Device Used No (0 pt) Altered Elimination No (0 pt) Score/Fall Risk Level 0 - 2 = Low Risk Maintained a safe environment. Abuse screen: Denies threats or abuse. Denies injuries from another. Nutritional screening: No deficits noted. Tuberculosis screening: No symptoms or risk factors identified. Assessment: 04:25 GI: Abdomen is tender to palpation in right upper quadrant and left upper quadrant. kd3 Vital Signs: 01:58 BP 132 / 95; Pulse 78; Resp 18 S; Temp 97.8(O); Pulse Ox 100% on R/A; Weight 117.93 kg as6 (R); Height 5 ft. 4 in. (R); Pain 9/10; 04:26 BP 112 / 79; Pulse 66; Resp 18; Pulse Ox 100% on R/A; kd3 04:38 BP 111 / 67; Pulse 69; Resp 18; Pulse Ox 100% on R/A; kd3 01:58 Body Mass Index 44.63 (117.93 kg, 162.56 cm) as6 01:58 Pain Scale: Adult as6 ED Course: 01:48 Patient arrived in ED. ag3 01:50 Roger Osborne MD is Attending Physician. sp4 01:57 Arm band placed on. as6 02:01 Triage completed. as6 02:04 Inserted saline lock: 20 gauge in right antecubital area, using aseptic technique. kd3 Blood collected. 02:04 No provider procedures requiring assistance completed. kd3 02:05 Initial lab(s) drawn, by ED staff, sent to lab. jw7 02:12 Vania Rosado, RN is Primary Nurse. kd3 02:13 Lipase Sent. kd3 02:13 CMP Sent. kd3 02:26 Urinalysis w/ reflexes Sent. kd3 02:38 Abdomen Limited US In Process Unspecified. EDMS 02:56 CT Abd/Pelvis - IV Contrast Only In Process Unspecified. EDMS 04:25 Patient has correct armband on for positive identification. Bed in low position. kd3 04:35 Brennan Dennis MD is Referral Physician. sp4 04:46 IV discontinued, intact, bleeding controlled, No redness/swelling at site. Pressure kd3 dressing applied. Administered Medications: 02:25 Drug: metoCLOPramide IVP 10 mg Route: IVP; Site: right antecubital; kd3 04:36 Follow up: Response: No adverse reaction; Nausea is decreased kd3 02:25 Drug: NS 0.9% IV 1000 ml Route: IV; Rate: 1 bolus; Site: right antecubital; kd3 04:47 Follow up: IV Status: Completed infusion; IV Intake: 1000ml kd3 02:25 Drug: Famotidine IVP 20 mg Route: IVP; Site: right antecubital; kd3 04:37 Follow up: Response: No adverse reaction kd3 04:47 Follow up: Response: No adverse reaction kd3 02:26 Drug: morphine IVP or IV 8 mg Route: IVP; Infused Over: 4 mins; Site: right antecubital;kd3 04:36 Follow up: Response: No adverse reaction; Pain is decreased kd3 02:26 Drug: Ondansetron IVP 4 mg Route: IVP; Site: right antecubital; kd3 04:36 Follow up: Response: No adverse reaction; Nausea is decreased kd3 04:38 Drug: [place] PO 10 mg-325 mg 1 tabs Route: PO; kd3 04:47 Follow up: Response: No adverse reaction kd3 04:38 Drug: Promethazine PO 25 mg Route: PO; kd3 04:47 Follow up: Response: No adverse reaction; Pain is decreased kd3 04:38 Drug: Ibuprofen PO 800 mg Route: PO; kd3 04:46 Follow up: Response: No adverse reaction; Pain is decreased kd3 Medication: 04:25 VIS not applicable for this client. kd3 Intake: 04:47 IV: 1000ml; Total: 1000ml. kd3 Outcome: 04:37 Discharge ordered by . sp4 04:46 Discharged to home ambulatory. kd3 04:46 Condition: stable 04:46 Discharge instructions given to patient, Instructed on discharge instructions, follow up and referral plans. medication usage, Demonstrated understanding of instructions, follow-up care, medications, Prescriptions given X 4. 04:47 Patient left the ED. kd3 Signatures: Dispatcher [employer] EDMS Rubia Robb Ashby, RN RN as6 Vania Rosado RN RN kd3 Christin Kelley7 Roger Osborne MD MD sp4
--- NOTE | 2023-03-27 04:37 | EDPHYS ---
Physician Documentation [facility] Name: Qasim Resendez Age: 32 yrs Sex: Female : 1990 Arrival Date: 03/27/2023 Time: 01:45 Bed 5 Private MD: ED Physician Roger Osborne HPI: 03/27 01:51 This 32 yrs old Black Female presents to ER via Unassigned with complaints of Abdominal sp4 Pain. 04:28 Patient states she developed acute midepigastric and right upper quadrant abdominal sp4 pain 2 hours prior to arrival associate with nausea. Pain is severe. Patient states that 4 weeks ago she was diagnosed with gallstones at [facility] via ultrasound. She was advised to see surgeon but did not get a chance to see the surgeon as of yet. . 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 - Social history:: Smoking status: Patient denies any tobacco usage or history of. - Family history:: not pertinent. ROS: 04:28 Constitutional: Negative for fever, chills, and weight loss, Eyes: Negative for injury, sp4 pain, redness, and discharge, ENT: Negative for injury, pain, and discharge, Neck: Negative for injury, pain, and swelling, Cardiovascular: Negative for chest pain, palpitations, and edema, Respiratory: Negative for shortness of breath, cough, wheezing, and pleuritic chest pain, Abdomen/GI: Negative for vomiting, diarrhea, and constipation, positive for upper abdominal pain and nausea Back: Negative for injury and pain, : Negative for injury, bleeding, discharge, and swelling, MS/Extremity: Negative for injury and deformity, Skin: Negative for injury, rash, and discoloration, Neuro: Negative for headache, weakness, numbness, tingling, and seizure, Psych: Negative for depression, anxiety, Allergy/Immunology: Negative for hives, rash, and allergies Endocrine: Negative for neck swelling, polydipsia, polyuria, polyphagia, and weight changes Hematologic/Lymphatic: Negative for swollen nodes, abnormal bleeding, and unusual bruising Exam: 04:28 Constitutional: This is a well developed, well nourished patient who is awake, alert, sp4 and in no acute distress. Head/Face: Normocephalic, atraumatic. Eyes: Pupils equal round and reactive to light, extra-ocular motions intact. Lids and lashes normal. Conjunctiva and sclera are not injected. Cornea within normal limits. Periorbital areas with no swelling, redness, or edema. ENT: Nares patent. No nasal discharge, no septal abnormalities noted. Tympanic membranes are normal and external auditory canals are clear. Oropharynx with no redness, swelling, or masses, exudates, or evidence of obstruction, uvula midline. Mucous membranes moist. Neck: Trachea midline, no thyromegaly or masses palpated, and no cervical lymphadenopathy. Supple, full range of motion without nuchal rigidity, or vertebral point tenderness. Chest/axilla: Normal chest wall appearance and motion. Nontender with no deformity. No lesions are appreciated. Cardiovascular: Regular rate and rhythm with a normal S1 and S2. No gallops, murmurs, or rubs. Normal PMI, no JVD. No pulse deficits. Respiratory: Lungs have equal breath sounds bilaterally, clear to auscultation and percussion. No rales, rhonchi or wheezes noted. No increased work of breathing, no retractions or nasal flaring. Abdomen/GI: Soft, midepigastric right upper quadrant abdominal tenderness with positive Silva sign. No rigidity, no distention, moderately obese abdomen Back: No spinal tenderness. No costovertebral tenderness. Skin: Warm, dry with normal turgor. Normal color with no rashes, no lesions, and no evidence of cellulitis. MS/ Extremity: Pulses equal, no cyanosis. Neurovascular intact. Full, normal range of motion. Neuro: Awake and alert, GCS 15, oriented to person, place, time, and situation. Cranial nerves II-XII grossly intact. Motor strength 5/5 in all extremities. Sensory grossly intact. Psych: Awake, alert, with orientation to person, place and time. Behavior, mood, and affect are within normal limits Vital Signs: 01:58 BP 132 / 95; Pulse 78; Resp 18 S; Temp 97.8(O); Pulse Ox 100% on R/A; Weight 117.93 kg as6 (R); Height 5 ft. 4 in. (R); Pain 9/10; 04:26 BP 112 / 79; Pulse 66; Resp 18; Pulse Ox 100% on R/A; kd3 04:38 BP 111 / 67; Pulse 69; Resp 18; Pulse Ox 100% on R/A; kd3 01:58 Body Mass Index 44.63 (117.93 kg, 162.56 cm) as6 01:58 Pain Scale: Adult as6 MDM: 02:55 Patient medically screened. sp4 04:18 ED course: CT abdomen and pelvis - IMPRESSION: 1. Cholelithiasis without secondary sp4 signs to suggest acute cholecystitis. Biliary dilatation. A distal obstructing or recently passed gallstone cannot be excluded. 2. Other findings as above. . ED course: Ultrasound - EXAM: US Abdomen Limited, Right Upper Quadrant CLINICAL HISTORY: ABD PAIN TECHNIQUE: Real-time ultrasound of the right upper quadrant with image documentation. COMPARISON: US Abdomen Limited RUQ dated 03/16/2023 FINDINGS: Gallbladder: Multiple gallstones. No gallbladder wall thickening or pericholecystic fluid. Common bile duct: Mild biliary dilatation. The common bile duct measures 8 mm in maximum diameter. No stones. IMPRESSION: Cholelithiasis without secondary signs to suggest acute cholecystitis. . 04:28 Differential Diagnosis Gastroenteritis, cholecystitis, choledocholithiasis, sp4 pancreatitis, enteritis, colitis. Data reviewed: vital signs, nurses notes, lab test result(s), CBC, electrolytes, hepatic panel, urinalysis, radiologic studies, CT scan, ultrasound. Consideration of Admission/Observation Patient was admitted/placed on observation. Escalation of care including admission/observation considered. ED course: CT and ultrasound confirm cholelithiasis without signs of acute cholecystitis. Patient felt improved after medications. Patient stable for discharge home with as needed medications for pain and nausea. Will refer patient to Dr. Dennis for cholecystectomy. . 03/27 01:57 Order name: CBC with Diff; Complete Time: 03:17 sp4 03/27 01:57 Order name: CMP; Complete Time: 03:17 sp4 03/27 01:57 Order name: Lipase; Complete Time: 03:17 sp4 03/27 01:57 Order name: Urinalysis w/ reflexes; Complete Time: 03:17 sp4 03/27 01:57 Order name: Abdomen Limited US sp4 03/27 01:57 Order name: CT Abd/Pelvis - IV Contrast Only sp4 03/27 01:57 Order name: IV Saline Lock; Complete Time: 02:05 sp4 03/27 01:57 Order name: Labs collected and sent; Complete Time: 02:05 sp4 Administered Medications: 02:25 Drug: metoCLOPramide IVP 10 mg Route: IVP; Site: right antecubital; kd3 04:36 Follow up: Response: No adverse reaction; Nausea is decreased kd3 02:25 Drug: NS 0.9% IV 1000 ml Route: IV; Rate: 1 bolus; Site: right antecubital; kd3 04:47 Follow up: IV Status: Completed infusion; IV Intake: 1000ml kd3 02:25 Drug: Famotidine IVP 20 mg Route: IVP; Site: right antecubital; kd3 04:37 Follow up: Response: No adverse reaction kd3 04:47 Follow up: Response: No adverse reaction kd3 02:26 Drug: morphine IVP or IV 8 mg Route: IVP; Infused Over: 4 mins; Site: right antecubital;kd3 04:36 Follow up: Response: No adverse reaction; Pain is decreased kd3 02:26 Drug: Ondansetron IVP 4 mg Route: IVP; Site: right antecubital; kd3 04:36 Follow up: Response: No adverse reaction; Nausea is decreased kd3 04:38 Drug: [place] PO 10 mg-325 mg 1 tabs Route: PO; kd3 04:47 Follow up: Response: No adverse reaction kd3 04:38 Drug: Promethazine PO 25 mg Route: PO; kd3 04:47 Follow up: Response: No adverse reaction; Pain is decreased kd3 04:38 Drug: Ibuprofen PO 800 mg Route: PO; kd3 04:46 Follow up: Response: No adverse reaction; Pain is decreased kd3 Disposition Summary: 03/27/23 04:37 Discharge Ordered Location: Home sp4 Problem: new sp4 Symptoms: have improved sp4 Condition: Stable sp4 Diagnosis - Other cholelithiasis without obstruction sp4 - Other specified diseases of biliary tract sp4 - Cholelithiasis, biliary colic sp4 Followup: sp4 - With: Brennan Dennis MD - When: 7 - 10 days - Reason: Recheck today's complaints Discharge Instructions: - Discharge Summary Sheet sp4 - Cholelithiasis sp4 Forms: - [email or web address] sp4 Prescriptions: - Ibuprofen 600 mg Oral Tablet - take 1 tablet by ORAL route every 6 hours As needed take with food; 30 tablet; sp4 Refills: 0, Product Selection Permitted - Zofran 4 mg Oral Tablet - take 1 tablet by ORAL route every 6 hours As needed PRN nausea, may take sp4 Together with Phenergan; 30 tablet; Refills: 0, Product Selection Permitted - Tramadol 50 mg Oral Tablet - take 1 tablet by ORAL route every 8 hours as needed; 12 tablet; Refills: 0, sp4 Product Selection Permitted - promethazine 25 mg Oral Tablet - take 1 tablet by ORAL route every 6 hours As needed PRN nausea; 30 tablet; sp4 Refills: 0, Product Selection Permitted Signatures: Dispatcher [employer] David Nicholas RN RN as6 Vania Rosado RN RN kd3 Roger Osborne MD MD sp4
[2023-03-27] MEDS ORDERED: PROMETHAZINE 25 MG TABLET ONE (04:41)
[2023-03-27] MEDS ORDERED: IBUPROFEN 400 MG TAB ONE (04:42)
[2023-03-27] MEDS ORDERED: HYDROCODONE/APAP 10/325 TAB ONE (04:42)
[2023-03-27 05:14] VITALS: TEMP 97.8; O2SAT 100
[2023-03-27 05:16] VITALS: BP 111/67
--- NOTE | 2023-03-27 12:40 | RAD REPORT ---
EXAM DESCRIPTION: US - Abdomen Exam Limited - 03/27/2023 2:36 am CLINICAL HISTORY: ABD PAIN TECHNIQUE: Real-time ultrasound of the right upper quadrant with image documentation. COMPARISON: US Abdomen Limited RUQ dated 03/16/2023 FINDINGS: Gallbladder: Multiple gallstones. No gallbladder wall thickening or pericholecystic fl uid. Common bile duct: Mild biliary dilatation. The common bile duct measures 8 mm in maximum diameter . No stones. IMPRESSION: Cholelithiasis without secondary signs to suggest acute cholecystitis. Electronically signed by: Shanna Silverman MD 03/27/2023 3:26 AM CDT Due to temporary technical issues with the PACS/Fluency reporting system, reports are being signed by the in house radiologist without review as a courtesy to ensure prompt reporting. The interpreting r adiologist is fully responsible for the content of the report.
--- NOTE | 2023-03-27 13:16 | RAD REPORT ---
EXAM DESCRIPTION: CT - Abdomen Pelvis W Contrast - 03/27/2023 6:03 am CLINICAL HISTORY: RUQ AND BACK PAIN TECHNIQUE: Axial computed tomography images of the abdomen and pelvis with intravenous contrast. S agittal and coronal reformatted images were created and reviewed. This CT exam was performed using one or more of the following dose reduction techniques: automated exposure control, adjustment of t he mA and/or kV according to patient size, and/or use of iterative reconstruction technique. COMPARISON: No relevant prior studies available. FINDINGS: Lung bases: Unremarkable. No mass. No consolidation. ABDOMEN: Liver: Unremarkable. No mass. Gallbladder and bile ducts: Numerous gallstones. Gallbladder wall is top normal in thickness. I ntrahepatic and extrahepatic biliary dilatation. The common duct measures 8 mm in maximum diameter. Pancreas: Unremarkable. No mass. No ductal dilation. Spleen: Unremarkable. No splenomegaly. Adrenals: Unremarkable. No mass. Kidneys and ureters: There are a couple small right renal calculi. No hydronephrosis. Stomach and bowel: Moderate stool. No bowel obstruction. No appreciable mucosal thickening. C olonic diverticula without adjacent inflammatory change. PELVIS: Appendix: Normal caliber appendix. No findings to suggest acute appendicitis. Bladder: The urinary bladder is decompressed. Reproductive: Unremarkable as visualized. ABDOMEN and PELVIS: Intraperitoneal space: Unremarkable. No free air. No significant fluid collection. Bones/joints: Multilevel spondylosis most pronounced, moderate to severe at L5-S1. Chronic bilate ral pars interarticularis defects at L5 with associated grade 1 spondylolisthesis of L5 on S1. No a cute fracture. No dislocation. Soft tissues: Moderate fat-containing periumbilical hernia. Vasculature: Unremarkable. No abdominal aortic aneurysm. Lymph nodes: Unremarkable. No enlarged lymph nodes. IMPRESSION: 1. Cholelithiasis without secondary signs to suggest acute cholecystitis. Biliary di latation. A distal obstructing or recently passed gallstone cannot be excluded. 2. Other findings as above. Electronically signed by: Shanna Silverman MD 03/27/2023 3:52 AM CDT Due to temporary technical issues with the PACS/Fluency reporting system, reports are being signed by the in house radiologist without review as a courtesy to ensure prompt reporting. The interpreting r adiologist is fully responsible for the content of the report.
== END 2023-03-27 04:47 | disposition home or self-care (01) ==
LOC: ER 01:45
DX: K80.80 Other cholelithiasis without obstruction (principal); K80.50 Calculus of bile duct without cholangitis or cholecystitis without obstruction
CPT/HCPCS: 36415; 74177; 76705; 80053; 81001; 83690; 85025; 96361; 96374; 96375; 99284; J2405; J2765; J7030; Q0169; Q9967

== ENCOUNTER 2023-06-15 04:19 | Emergency (ER) | payer SELFPAY ==
--- OUTSIDE RECORDS SUMMARY | 2023-06-15 04:25 | XMS REPORT | Continuity of Care Document ---
:1990 Author Organization [facility] t Address [address] [place] [address] Care Team Providers Name Role Phone Asked, No Pcp Primary Care Physician Unavailable Bradly RDZ, Ron Paige Attending Clinician [phone] AAYUSH PALENCIA Attending Clinician Unavailable David Becker MD Attending Clinician Bhargav Redd MD Attending Clinician [phone] Beltran Christine MD Attending Clinician [phone] Abimbola Lincoln MD Attending Clinician Layo RDZ, Yony Rodas Attending Clinician Reigna Ruiz Attending Clinician Unavailable Isabel Craig DO Attending Clinician [phone] Rosalind Cueto MD Attending Clinician Brooks Boo MD Attending Clinician [phone] Brooks Toribio Attending Clinician Unavailable Andi Mojica MD Attending Clinician Torrey Javed Attending Clinician Unavailable QUENTIN BARAJAS Attending Clinician Unavailable MD KENNA LOPEZ Attending Clinician Unavailable ANDI LOPEZ Attending Clinician Unavailable DO BELTRAN SHEPHERD Attending Clinician Unavailable BELTRAN SHEPHERD Attending Clinician Unavailable KIMBERLY CARROLL Attending Clinician Unavailable DANIELA BECKER Attending Clinician Unavailable AAYUSH PALENCIA Admitting Clinician Unavailable Physician, No Primary or Family Admitting Clinician UnavailQUENTIN Talavera Admitting Clinician Unavailable MD KENNA LOPEZ Admitting Clinician Unavailable LAYO, 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 MACHINE OPERATOR THUYARASH ALMEIDA Admitting Clinician Unavailable Payers Payer Name Policy Type Policy Number Effective Date Expiration Date S ource Problems Condition Condition Condition Status Onset Resolution Last Treating Co mments Source Name Details Category Date Date Treatment Clinician Date Symptomati Symptomati Disease Active M ethodi c c 02-27 [facility]ithi 00:00: [facility] asis asis 00 l Allergies, Adverse Reactions, Alerts Allergy Allergy Status Severity Reaction(s) Onset Inactive Treating Comm ents Source Name Type Date Date Clinician No Known DA Active U 2020-0 [facility] 7[facility]10 Clear s 00:00: [facility] No Known DA Active U 2020-0 [facility] Allergie 7-10 Clear s 00:00: [facility] No Known DA Active U 2020-0 [facility] Allergie 1-24 Clear s 00:00: [facility] No Known DA Active U 2019-0 [facility] Allergie 5-07 Clear s 00:00: [facility] No Known DA Active U 2019-0 [facility] Allergie 3-20 Clear s 00:00: [facility] No Known DA Active U 2019-0 [facility] Allergie 2-13 Clear s 00:00: [facility] No Known DA Active U 2017-1 [facility] Allergie 1-27 Clear s 00:00: [facility] No Known DA Active U 2009-0 [facility] Food 3-26 [place] All[facility]ie 00:00: e [facility] No Known DA Active U 2009-0 [facility] Other 3-26 [place] Allergie 00:00: e s [facility] No Known DA Active U 2009-0 [facility] Contrast 3-26 [place] Allergie 00:00: e [facility] No Known DA Active U 2009-0 [facility] Drug 3- [place] [facility] No Known DA Active U 2007-09 [facility]- [place] [facility] No Known DA Active U 2007-09 [facility] [place] [facility] Family History Family Member Diagnosis Comments Start Date Stop Date Source Natural father Hypertension [facility] Natural father Stroke [facility] Natural mother Cancer [facility] Natural mother Hypertension [facility] Paternal grandmother Diabetes [facility] Paternal grandmother Hypertension [facility] Paternal grandmother Stroke [facility] Social History Social Habit Start Date Stop Date Quantity Comments Source Gender identity [facility] History of tobacco Cigarette Smoker [facility] History of Social 2023-04-02 2023-04-[address] function 00:00:00 00:00:00 Hospital Alcohol intake 2023-03-11 2023-03-11 Current [facility] 00:00:00 00:00:00 non-drinker of Hospital alcohol (finding) Tobacco use and 2022-01-02 2022-01-02 Smokeless [facility] exposure 00:00:00 00:00:00 tobacco non-user Hospital Sex Assigned At [birth year] [facility] 00:00:00 00:00:00 Hospital Smoking Status Start Date Stop Date Source Ex-smoker 2022-01-02 00:00:00 2022-01-02 00:00:[address] [facility] Medications Ordered Filled Start Stop Current Ordering Indication Dosage Frequency Signature Comments Components Source Medication Medication Date Date Medication? Clinician (SIG) Name Name ibuprofen Yes 800mg Q8H Take 1 Metho di (ADVIL) 800 6-[address] MG tablet 00:00: (800 mg Hospi ta 00 total) by l mouth every 8 (eight) hours as needed for mild pain. ibuprofen Yes 800mg Q8H Take 1 Metho di (ADVIL) 800 6-[address] MG tablet 00:00: (800 mg Hospi ta 00 total) by l mouth every 8 (eight) hours as needed for mild pain. ibuprofen 0 Yes 800mg Q8H Take 1 Metho di (ADVIL) 800 6-[address] MG tablet 00:00: (800 mg Hospi ta 00 total) by l mouth every 8 (eight) hours as needed for mild pain. methylPREDN 2022-0 2022- No follow Met hodi ISolone 03-[address] (MEDROL 00:00: 04:59 directions Hos rain DOSEPAK) 4 00 :00 l mg tablet methylPREDN 2022-0 2022- No follow Met hodi ISolone 03-[address] (MEDROL 00:00: 04:59 directions Hos rain DOSEPAK) 4 00 :00 l mg tablet methylPREDN 2022-0 2022- No follow Met hodi ISolone 03-[address] (MEDROL 00:00: 04:59 directions Hos rain DOSEPAK) 4 00 :00 l mg tablet ibuprofen 2022-0 Yes 600mg Q8H Take 1 Metho di (ADVIL) 600 4-[address] MG tablet 00:00: (600 mg Hospi ta 00 total) by l mouth every 8 (eight) hours as needed for mild pain. traMADoL 2022-0 Yes [id number] 50mg Q8H Take 1 Method i (ULTRAM) 50 4-05 tablet (50 st mg tablet 00:00: mg total) Hos rain 00 by mouth l every 8 (eight) hours as needed for moderate pain .acute pain. ibuprofen 2022-0 Yes 600mg Q8H Take 1 Metho di (ADVIL) 600 4-[address] MG tablet 00:00: (600 mg Hospi ta 00 total) by l mouth every 8 (eight) hours as needed for mild pain. traMADoL 2022-0 Yes [id number] 50mg Q8H Take 1 Method i (ULTRAM) 50 4-05 tablet (50 st mg tablet 00:00: mg total) Hos rain 00 by mouth l every 8 (eight) hours as needed for moderate pain .acute pain. ibuprofen 2022-0 Yes 600mg Q8H Take 1 Metho di (ADVIL) 600 4-[address] MG tablet 00:00: (600 mg Hospi ta 00 total) by l mouth every 8 (eight) hours as needed for mild pain. traMADoL 2023-0 Yes [id number] 50mg Q8H Take 1 Method i (ULTRAM) 50 4-05 tablet (50 st mg tablet 00:00: mg total) Hos rain 00 by mouth l every 8 (eight) hours as needed for moderate pain .acute pain. amoxicillin 2022-0 2022- No 1{tbl} Q.5D Take 1 M ethodi -pot 4-01 29-[address] clavulanate 00:00: 04:59 mouth 2 Ho spita (Augmentin) 00 :00 (two) l 875-125 mg times a per tablet day for 7 days. amoxicillin 2022-0 2022- No 1{tbl} Q.5D Take 1 M ethodi -pot 12-31-[address] clavulanate 00:00: 04:59 mouth 2 Ho spita (Augmentin) 00 :00 (two) l 875-125 mg times a per tablet day for 7 days. amoxicillin 2022-0 2022- No 1{tbl} Q.5D Take 1 M ethodi -pot 12-31-[address] clavulanate 00:00: 04:59 mouth 2 Ho spita (Augmentin) 00 :00 (two) l 875-125 mg times a per tablet day for 7 days. ibuprofen 2023-0 Yes 600mg Q6H Take 1 Metho di (ADVIL) 600 3-[address] MG tablet 00:00: (600 mg Hospi ta 00 total) by l mouth every 6 (six) hours as needed for mild pain. ibuprofen 3-0 Yes 600mg Q6H Take 1 Metho di (ADVIL) 600 3-[address] MG tablet 00:00: (600 mg Hospi ta 00 total) by l mouth every 6 (six) hours as needed for mild pain. ibuprofen 3-0 Yes 600mg Q6H Take 1 Metho di (ADVIL) 600 3-[address] MG tablet 00:00: (600 mg Hospi ta 00 total) by l mouth every 6 (six) hours as needed for mild pain. methocarbam 3-0 2022- No 500mg Q.5D Take 1 Me thodi oL 3-06 03-[address] (ROBAXIN) 00:00: 05:59 (500 mg [facility]osp [facility] 500 MG 00 :00 total) by l tablet mouth 2 (two) times a day for 5 days. methocarbam 2022-0 2023- No 500mg Q.5D Take 1 Me thodi oL 12-01-[address] (ROBAXIN) 00:00: 05:59 (500 mg [facility] 500 MG 00 :00 total) by l tablet mouth 2 (two) times a day for 5 days. methocarbam 2022-0 2022- No 500mg Q.5D Take 1 Me thodi oL 12-01-[address] (ROBAXIN) 00:00: 05:59 (500 mg [facility] 500 MG 00 :00 total) by l tablet mouth 2 (two) times a day for 5 days. predniSONE 2022-0 202- No 40mg QD Take 4 Meth janelle (DELTASONE) 12-01-[address] 10 mg 00:00: 05:59 (40 mg Hospita tablet 00 :00 total) by l mouth daily for 4 days. predniSONE 2022-0 2022- No 40mg QD Take 4 Meth janelle (DELTASONE) 12-[address] 10 mg 00:00: 05:59 (40 mg Hospita tablet 00 :00 total) by l mouth daily for 4 days. predniSONE 2022-0 2022- No 40mg QD Take 4 Meth janelle (DELTASONE) 12-01-[address] 10 mg 00:00: 05:59 (40 mg Hospita tablet 00 :00 total) by l mouth daily for 4 days. ondansetron 2021-0 2021- No 4mg Q8H Take 1 Met hodi ODT 9- 10-02 tablet (4 st (ZOFRAN-ODT 00:00: 04:59 mg total) Hospita ) 4 MG 00 :00 by mouth l disintegrat every 8 ing tablet (eight) hours as needed for nausea or vomiting for up to 5 days. ondansetron 202-0 2022- No 4mg Q8H Take 1 Met hodi ODT 9-26 10-02 tablet (4 st (ZOFRAN-ODT 00:00: 04:59 mg total) Hospita ) 4 MG 00 :00 by mouth l disintegrat every 8 ing tablet (eight) hours as needed for nausea or vomiting for up to 5 days. ondansetron 2022-0 2022- No 4mg Q8H Take 1 Met hodi ODT 9-26 10-02 tablet (4 st (ZOFRAN-ODT 00:00: 04:59 mg total) Hospita ) 4 MG 00 :00 by mouth l disintegrat every 8 ing tablet (eight) hours as needed for nausea or vomiting for up to 5 days. ondansetron 2021- No 4mg Q8H Take 1 Met hodi ODT 9-26 10-02 tablet (4 st (ZOFRAN-ODT 00:00: 04:59 mg total) Hospita ) 4 MG 00 :00 by mouth l disintegrat every 8 ing tablet (eight) hours as needed for nausea or vomiting for up to 5 days. ondansetron 2021- No 4mg Q8H Take 1 Met hodi ODT 9- 10-02 tablet (4 st (ZOFRAN-ODT 00:00: 04:59 mg total) Hospita ) 4 MG 00 :00 by mouth l disintegrat every 8 ing tablet (eight) hours as needed for nausea or vomiting for up to 5 days. butalbital- 2021- No 1{tbl} Q6H Take 1 M ethodi acetaminoph 9-26 09-30 tablet by [facility] 00:00: 04:59 mouth Hospita (Esgic) 00 :00 every 6 l 50-325-40 (six) mg per hours as tablet needed for headaches for up to 3 days. butalbital- 2021- No 1{tbl} Q6H Take 1 M ethodi acetaminoph 9-26 09-30 tablet by [facility] 04:59 mouth Hospita (Esgic) 00 :00 every 6 l 50-325-40 (six) mg per hours as tablet needed for headaches for up to 3 days. butalbital- 2021- No 1{tbl} Q6H Take 1 M ethodi acetaminoph 9-26 09-30 tablet by [facility] 00:00: 04:59 mouth Hospita (Esgic) 00 :00 every 6 l 50-325-40 (six) mg per hours as tablet needed for headaches for up to 3 days. butalbital- 2021- No 1{tbl} Q6H Take 1 M ethodi acetaminoph -23 06-[address] en-caff 00:00: 04:59 mouth [...] headaches for up to 3 days. metoclopram 2021-0 2021- No 10mg Q8H Take 1 Met hodi jessica 8-17 08-25 tablet (10 st (REGLAN) 10 00:00: 04:59 mg total) Hospita MG tablet 00 :00 by mouth l every 8 (eight) hours as needed (headache) for up to 7 days. metoclopram 2021-0 2021- No 10mg Q8H Take 1 Met hodi jessica 8-17 08-25 tablet (10 st (REGLAN) 10 00:00: 04:59 mg total) Hospita MG tablet 00 :00 by mouth l every 8 (eight) hours as needed (headache) for up to 7 days. metoclopram 2021-0 2021- No 10mg Q8H Take 1 Met hodi jessica 8-17 08-25 tablet (10 st (REGLAN) 10 00:00: 04:59 mg total) Hospita MG tablet 00 :00 by mouth l every 8 (eight) hours as needed (headache) for up to 7 days. ondansetron 2021-0 2021- No 4mg Q12H Take 1 Met [...] daily for 5 days. acetaminoph 2021-2021- [place] [id number] 5mL Q6H Take 5 mL Methodi en [...] daily for 5 days. acetaminoph 2021-2021- [place] [id number] 5mL Q6H Take 5 mL Methodi en with 03-[address] codeine 00:00: 04:59 every 6 Hospit a (acetaminop 00 :00 (six) l hen-codeine hours as ) 120-12 needed for mg/5 mL moderate solution pain or severe pain for up to 5 days .acute pain. benzonatate 2021-0 Yes 100mg Q.[id number] Take 1 Methodi (TESSALON) 6- [id number] capsule st 100 MG 00:00: 3D (100 mg Hospita capsule 00 total) by l mouth 3 (three) times a day as needed for cough. benzonatate 2021-0 Yes 100mg Q.[id number] Take 1 Methodi (TESSALON) 6- [id number] capsule st 100 MG 00:00: 3D (100 mg Hospita capsule 00 total) by l mouth 3 (three) times a day as needed for cough. benzonatate 0 Yes 100mg Q.25529300 Take 1 Methodi (TESSALON) 6-[id number] 100 MG 00:00: 3D (100 mg Hospita capsule 00 total) by l mouth 3 (three) times a day as needed for cough. benzonatate 0 Yes 100mg Q.[id number] Take 1 Methodi (TESSALON) 6-[id number] 100 MG 00:00: 3D (100 mg Hospita capsule 00 total) by l mouth 3 (three) times a day as needed for cough. benzonatate 0 Yes 100mg Q.54401110 Take 1 Methodi (TESSALON) 6-[id number] 100 MG 00:00: 3D (100 mg Hospita capsule 00 total) by l mouth 3 (three) times a day as needed for cough. albuterol 2021- No 2{puff} Q4H Inhale 2 Methodi (PROAIR 6-06 07-[address] HFA) 90 00:00: 04:59 [...] No 2{puff} Q4H Inhale 2 Methodi (PROAIR 6-06 07-[address] HFA) 90 00:00: 04:59 [...] per tablet hours for 7 days. amoxicillin No 1{tbl} Q12H Take 1 M ethodi -pot 11-[address] clavulanate 00:00: 05:59 mouth [...] Time Observation Value Comments Source Systolic blood 2023-04-02 16:00:00 114 mm[Hg] [facility] pressure Diastolic blood 2023-04-02 16:00:00 64 mm[Hg] [facility] pressure Heart rate 2023-04-02 16:00:00 57 /min [facility] Respiratory rate 2023-04-02 16:00:00 19 /min [facility] Oxygen saturation in 2023-04-02 16:00:00 98 /min [facility] Arterial blood by Pulse oximetry Body temperature 2023-04-02 13:30:00 36.78 Jerrica [facility] Body height 2023-04-02 12:42:[address] [facility] Body weight 2023-04-02 12:42:[address] [facility] BMI 2023-04-02 12:42:00 42.05 kg/m2 [facility] Body temperature 2023-03-11 15:18:00 36.83 Jerrica [facility] Systolic blood 2023-03-11 15:16:00 141 mm[Hg] Method [facility] pressure Diastolic blood 2023-03-11 15:16:00 82 mm[Hg] [facility] pressure Heart rate 2023-03-11 15:16:00 72 /min [facility] Respiratory rate 2023-03-11 15:16:00 18 /min [facility] Body height 2023-03-11 15:16:[address] [facility] Body weight 2023-03-11 15:16:[address] [facility] BMI 2023-03-11 15:16:00 39.36 kg/m2 [facility] Oxygen saturation in 2023-03-11 15:16:00 94 /min [facility] Arterial blood by Pulse oximetry Systolic blood 2022-06-24 02:34:48 139 mm[Hg] [facility] pressure Diastolic blood 2022-06-24 02:34:48 89 mm[Hg] [facility] pressure Heart rate 2022-06-24 02:34:48 79 /min [facility] Body temperature 2022-06-24 02:34:48 36.22 Jerrica [facility] Respiratory rate 2022-06-24 02:34:48 20 /min [facility] Oxygen saturation in 2022-06-24 02:34:48 99 /min [facility] Arterial blood by Pulse oximetry Body height 2022-06-24 00:39:[address] [facility] Body weight 2022-06-24 00:39:[address] [facility] BMI 2022-06-24 00:39:00 42.91 kg/m2 [facility] Procedures Procedure Date / Time Performing Clinician Source Performed US GALLBLADDER 2023-04-02 14:18:23 Ron Abdullahi URINE CULTURE 2023-04-02 13:11:00 Ron Abdullahi CBC WITH PLATELET AND 2023-04-02 13:11:00 Ron Abdullahi [facility] DIFFERENTIAL Padmaja Paige COMPREHENSIVE METABOLIC 2023-04-02 13:11:00 Ron Abdullahi [facility] PANEL Abdullah H ESTIMATED GFR 2023-04-02 13:11:00 SarmadRon benton [facility] 2023-04-02 13:10:00 Ron Abdullahi [facility] MICROSCOPY, WITH REFLEX Abdullah H TO CULTURE CBC WITH PLATELET AND 2023-03-11 16:06:00 Bernadette [facility] DIFFERENTIAL COMPREHENSIVE METABOLIC 2023-03-11 16:06:00 Bernadette [facility] PANEL TROPONIN T 2023-03-11 16:06:00 Bernadette [facility] NT-PROBNP 2023-03-11 16:06:00 Bernadette [facility] HCG QUALITATIVE, SERUM 2023-03-11 16:06[facility]00 [facility] 2023-03-11 16:06:00 Bernadette [facility] XR CHEST 1 VW PORTABLE 2023-03-11 15:42:54 Bernadette [facility] ECG 12-LEAD 2023-03-11 [facility]:24[facility] 2022-12-01 20:20:00 Andi Lopez ospital HCG QUALITATIVE, URINE 2022-12-01 20:20:00 Andi Lopez [facility] SCREEN URINALYSIS SCREEN AND 2022-12-01 20:20:00 Andi Lopez [facility] MICROSCOPY, WITH REFLEX TO CULTURE CT HEAD WO CONTRAST 2022-06-24 02:05:05 Isidro, Abimbola H [facility] CT CERVICAL SPINE WO 2022-06-24 02:04:53 Isidro, Abimbola [facility] CONTRAST ED REFERRAL TO [place] 2022-05-14 13:11:51 Yony Fragoso [facility] GNOSTICISM PHYSICIAN ORGANIZATION (PCP) ED REFERRAL TO [place] 2022-03-17 05:56:18 Daniela Mtz [facility] GNOSTICISM PHYSICIAN Vitaliy ORGANIZATION (PCP) ECG 12-LEAD 2022-03-17 05:38:10 [facility] spital Vitaliy ECG ED PRELIMINARY 2022-03-17 04:44:21 [facility] INTERPRETATION Vitaliy HCG QUALITATIVE, URINE 2022-03-17 03:49:00 [facility]ST 2 VW 2022-03-17 03:46:29 [facility] spital Vitaliy GROUP A STREP, RAPID 2022-03-17 03:32:00 [facility] ANTIGEN Vitaliy INFLUENZA ANTIGEN 2022-03-17 03:32:00 [facility] Vitaliy RESPIRATORY PATHOGEN 2022-03-17 03:32:00 [facility] PANEL WITH COVID-19 Vitaliy RT-PCR STREP SCREEN CULTURE 2022-03-17 03:32:00 [facility] Vitaliy XR CHEST 2 VW 2022-03-03 13:27:46 [facility] INFLUENZA ANTIGEN 2022-03-03 13:02:00 [facility] RESPIRATORY PATHOGEN 2022-03-03 13:02:00 [facility] PANEL WITH COVID-19 RT-PCR ECG ED PRELIMINARY 2022-03-03 12:53:04 Rosalind Cueto [facility] INTERPRETATION ECG 12-LEAD 2022-03-03 12:42:43 [facility] Plan of Care Planned Activity Planned Date Details Comments Source Future Scheduled 2023-05-31 Hepatitis C screening [facility] Test 09:51:19 (procedure) [code = 298675959] Future Scheduled 2023-05-31 Screening for [facility] Test 09:51:19 malignant neoplasm of cervix (procedure) [code = 894642140] Future Scheduled 2023-05-31 COVID-19 VACCINE (2 - [facility] Test 09:51:19 Pfizer series) [code = COVID-19 VACCINE (2 - Pfizer series)] Future Scheduled 2023-05-31 INFLUENZA VACCINE (#1) [facility] Test 09:51:19 [code = INFLUENZA VACCINE (#1)] Future Scheduled 2023-05-31 Hepatitis C screening [facility] Test 09:51:19 (procedure) [code = 450027999] Future Scheduled 2023-05-31 [facility] Test 09:51:19 malignant neoplasm of cervix (procedure) [code = 539435926] Future Scheduled 2023-05-31 COVID-19 VACCINE (2 - [facility] Test 09:51:19 Pfizer series) [code = COVID-19 VACCINE (2 - Pfizer series)] Future Scheduled 2023-05-31 [facility] (#[facility] 09:51:19 [code = INFLUENZA VACCINE (#1)] Future Scheduled 2023-03-27 Hepatitis C screening [facility] Test 01:47:07 (procedure) [code = 651019891] Future Scheduled 2023-03-27 [facility] Test 01:47:07 malignant neoplasm of cervix (procedure) [code = 886476618] Future Scheduled 2023-03-27 COVID-19 VACCINE (2 - [facility] Test 01:47:07 Pfizer series) [code = COVID-19 VACCINE (2 - Pfizer series)] Future Scheduled 2023-03-27 [facility]ACCINE [facility] Test 01:47:07 [code = INFLUENZA VACCINE] Future Scheduled 2022-09-18 Pneumococcal Vaccine: [facility] Test 14:43:59 Pediatrics (0 to 5 Years) and At-Risk Patients (6 to 64 Years) (1 - PCV) [code = Pneumococcal Vaccine: Pediatrics (0 to 5 Years) and At-Risk Patients (6 to 64 Years) (1 - PCV)] Future Scheduled 2022-09-18 Hepatitis C screening [facility] Test 14:43:59 (procedure) [code = 852553689] Future Scheduled 2022-09-18 Scre[facility] for [facility] Test 14:43:59 malignant neoplasm of cervix (procedure) [code = 918561666] Future Scheduled 2022-09-18 COVID-19 VACCINE (2 - [facility] Test 14:43:59 Pfizer series) [code = COVID-19 VACCINE (2 - Pfizer series)] Future Scheduled 2022-09-18 INFLUENZA VACCINE [facility] Test 14:43:59 [code = INFLUENZA VACCINE] Future Scheduled 2022-07-31 HEPATITIS B VACCINES Met [facility] Test 16:34:59 (1 of 3 - 3-dose series) [code = HEPATITIS B VACCINES (1 of 3 - 3-dose series)] Future Scheduled 2022-07-31 Pneumococcal Vaccine: [facility] Test 16:34:59 Pediatrics (0 to 5 Years) and At-Risk Patients (6 to 64 Years) (1 - PCV) [code = Pneumococcal Vaccine: Pediatrics (0 to 5 Years) and At-Risk Patients (6 to 64 Years) (1 - PCV)] Future Scheduled 2022-07-31 Hepatitis C screening [facility] Test 16:34:59 (procedure) [code = 590087678] Future Scheduled 2022-07-31 [facility] Test 16:34:59 malignant neoplasm of cervix (procedure) [code = 519055959] Future Scheduled 2022-07-31 COVID-19 VACCINE (2 - [facility] Test 16:34:59 Pfizer series) [code = COVID-19 VACCINE (2 - Pfizer series)] Future Scheduled 2022-07-31 INFLUENZA VACCINE [facility] Test 16:34:59 [code = INFLUENZA VACCINE] Encounters Start End Encounter Admission Attending Care Care Encounter Source Date/Time Date/Time Type Type Clinicians Facility Department ID 2023-03-27 Outpatient ALVIN OGLESBYYB [id number] Bee 09:05:05 [id number] [facility] 2019-10-21 Inpatient [facility]ERS [id number] [facility] 19:27:00 60 [facility] 2023-04-02 2023-04-02 [facility] 1.2.840.1 [id number] Methodi 07:37:00 12:18:[id number] [facility] 3.430.2.7 Hos rain .3.122592 l .8 2023-04-02 2023-04-02 Emergency Alza, 1.2.840.1 [id number] Methodi 07:37:00 12:18:[id number] Abdullah H 3.430.2.7 Hos rain .3.007687 l .8 2023-04-02 2023-04-02 Outpatient ALVIN PALENCIAYB [id number] Bee 00:00:00 00:00:00 AAYUSH Busy [facility] 2023-03-11 2023-03-11 Emergency David Becker 1.2.840.1 [id number] Methodi 10:05:00 12:06:[id number] 3.430.2.7 Hospit a .3.698233 l .8 2023-03-11 2023-03-11 Emergency David Becker 1.2.840.1 [id number] Methodi 10:05:00 12:06:[id number] 3.430.2.7 Hospit a .3.295567 l .8 2022-12-31 2022-12-31 Emergency Gemignani, 1.2.840.1 [id number] 2 [id number] Methodi 12:48:00 15:01:00 Bhargav Rodas [id number] 3.430.2.7 Hospit a .3.549220 l .8 2022-12-31 2022-12-31 Emergency Gemignani, 1.2.840.1 [id number] 2 [id number] Methodi 12:48:00 15:01:00 Bhargav [id number] 3.430.2.7 Hospit a .3.946674 l .8 2022-12-31 2022-12-31 Travel 1.2.840.1 [id number] Methodi 00:00:00 00:00:[address] 3.430.2.7 0.2.7.3.698 Ho spita .3.816353 084.8 l .8 2022-12-31 2022-12-31 Travel 1.2.840.1 1.2.645.689 2538 726196 Methodi 00:00:00 00:00:[address] 3.430.2.7 0.2.7.3.698 Ho spita .3.423869 084.8 l .8 2022-12-01 2022-12-01 Emergency Christine, 1.2.840.1 [id number] 2099444 Methodi 14:02:00 16:47:[address] [place] 3.430.2.7 Hospi ta .3.514775 l .8 2022-12-01 2022-12-01 Emergency Christine, 1.2.840.1 [id number] 2099444 Methodi 14:02:00 16:47:[address] [place] 3.430.2.7 Hospi ta .3.224121 l .8 2022-12-01 2022-12-01 Travel 1.2.840.1 1.2.667.716 8191 486606 Methodi 00:00:00 00:00:[address] 3.430.2.7 0.2.7.3.698 Ho spita .3.447233 084.8 l .8 2022-12-01 2022-12-01 Travel 1.2.840.1 1.2.139.597 8495 727518 Methodi 00:00:00 00:00:[address] 3.430.2.7 0.2.7.3.698 Ho spita .3.647250 084.8 l .8 2022-06-23 2022-06-24 Emergency Isidro, 1.2.840.1 [id number] 538 0847627 Methodi 20:41:00 06:17:00 Abimbola H 34601.1.[address] 3.430.2.7 Hospit a .3.470766 l .8 2022-06-23 2022-06-24 Emergency Isidro, 1.2.840.1 [id number] 474 5834700 Methodi 20:41:00 06:17:00 Abimbola H [address]696.1.[address] 3.430.2.7 Hospit a .3.346683 l .8 2022-06-23 2022-06-23 Travel 1.2.840.1 1.2.358.208 9500 985851 Methodi 00:00:00 00:00:[address] 3.430.2.7 0.2.7.3.698 Ho spita .3.044977 084.8 l .8 2022-06-23 2022-06-23 Travel 1.2.840.1 1.2.659.073 3532 429615 Methodi 00:00:00 00:00:[address] 3.430.2.7 0.2.7.3.698 Ho spita .3.502216 084.8 l .8 2022-05-14 2022-05-14 Emergency Fragoso, 1.2.840.1 [id number] 2099442 Methodi 08:02:00 08:37:00 [place] [address]243.[address] Clark 3.430.2.7 Hospit a .3.490942 l .8 2022-05-14 2022-05-14 Travel 1.2.840.1 1.2.162.398 5294 311940 Methodi 00:00:00 00:00:[address] 3.430.2.7 0.2.7.3.698 Ho spita .3.195809 084.8 l .8 2022-05-05 2022-05-05 Emergency EM Dark, Regina [facility]L CHASITY G001 469379 [facility] 09:09:00 09:40:00 47 [facility] 2022-05-05 2022-05-05 Emergency EM Dark, Regina HCACL HC[facility]L G684 430-20 [facility] 09:09:00 09:40:00 703545 [facility] 2022-03-16 2022-03-17 Emergency Kendig, 1.2.840.1 [id number] 2099 835738 Methodi 22:26:00 01:14:[address] Mehran 3.430.2.7 Hosp kerry .3.884056 l .8 2022-03-03 2022-03-03 Emergency Adelso 1.2.840.1 [id number] [id number] Methodi 07:35:00 09:19:[address] 3.430.2.7 Hospit a .3.585419 l .8 2022-01-02 2022-01-02 Emergency de Hernandez, 1.2.840.1 [id number] 21 [id number] Methodi 17:02:00 18:15:[address] Rhett 3.430.2.7 Hospit a .3.875489 l .8 2022-01-02 2022-01-02 Travel 1.2.840.1 1.2.089.149 4315 694787 Methodi 00:00:00 00:00:[address] 3.430.2.7 0.2.7.3.698 Ho spita .3.546183 084.8 l .8 2021-12-26 2021-12-26 Emergency EM Catarino, [facility] [id number]- 20 [facility] 09:46:00 12:31:00 [facility] 522128 [facility] 2021-12-26 2021-12-26 Emergency [facility] [id number] [facility] 09:46:00 12:31:00 Brooks 88 [facility] 2021-11-25 2021-11-26 Emergency Edwardo, 1.2.840.1 [id number] 2100 603446 Methodi 22:58:00 00:58:[address] Ganga 3.430.2.7 Hospit a .3.402146 l .8 2021-04-10 2021-04-10 Emergency [facility] [id number] [place] [address] 00:00:00 00:00:00 ANDI Hurt [facility] 2021-04-05 2021-04-06 Emergency EM Tello, [facility] CHASITY [id number] -20 [facility] 23:38:00 02:26:00 [place] 322396 [facility] 2021-03-12 2021-03-12 Emergency EARL, [place] [address] [id number] 47 [place] 00:00:00 00:00:[address] ISABEL [address] 2021-02-27 2021-02-28 Inpatient JENN, [place] [address] 411 [id number] 769 [place] 00:00:00 00:00:00 QUENTIN [address] 2021-02-16 2021-02-16 Emergency LOPEZ, [place] [address] [id number] 38 [place] 00:00:00 00:00:00 ANDI [address] 2020-12-28 2020-12-28 Emergency ISIDRO, [place] [address] 995 9247750 558 [place] 00:00:00 00:00:00 ABIMBOLA [address] 2020-07-14 2020-07-14 Emergency EDWARDO, [place] [address] [id number] 48 [place] 00:00:00 00:00:00 ANDI [address] 2020-05-15 2020-05-15 Emergency NORINSKY, [place] [address] 928160 9742 [place] 00:00:00 00:00:00 BELTRAN [address] 2020-04-28 2020-04-28 Emergency GLEN, [place] [address] [id number] 90 [place] 00:00:00 00:00:00 KIMBERLY [address] 2020-02-18 2020-02-18 Emergency VANDER [place] [address] [id number] 64 [place] 00:00:00 00:00:00 VITALIY, [address] Results Test Description Test Time Test Comments Results Result Comments Source ECG 12 lead 2023-05-11 20:45:47 Test Item Value Reference Range Interpretation Comme nts Ventricular rate (test code = 253) 68 Atrial rate (test code = 255) 68 [place] interval (test code = 266) 162 QRSD interval (test code = 260) 82 QT interval (test code = 264) 384 QTC interval (test code = 265) 408 P axis 1 (test code = 267) 32 QRS axis 1 (test code = 268) 51 T wave axis (test code = 270) 48 EKG impression (test code = 273) Normal sinus rhythm-Low voltage QRS-Borderline ECG-In automated comparison with ECG of 17-MAR-2022 00:38,-No significant change was found- [address]2023-08-14 20:45:47 Test Item Value Reference Range Interpretation Comments Ventricular rate (test 68 code = 253) Atrial rate (test code 68 = 255) [place] interval (test code 162 = 266) QRSD interval (test 82 code = 260) QT interval (test code 384 = 264) QTC interval (test code 408 = 265) P axis 1 (test code = 32 267) QRS axis 1 (test code = 51 268) T wave axis (test code 48 = 270) EKG impression (test Normal sinus code = 273) rhythm-Low voltage QRS-Borderline ECG-In automated comparison with ECG of 17-MAR-2022 00:38,-No significant change was found- [facility]2023-07-06 14:05:00 Test Item Value Reference Range Interpretation Comments Urine culture (test SEE COMMENT Bacteriu kp screen code = 1613435) negative. [facility] [place] [facility]2023-07-06 14:05:00 Test Item Value Reference Range Interpretation Comments Urine culture (test SEE COMMENT Bacteriu kp screen code = 0817296) negative. [address]2022-06-29 20:01:10 Test Item Value Reference Range Interpretation Comments Ventricular rate (test code = 253) Atrial rate (test code = 255) [place] interval (test code = 266) QRSD interval [...] of 03-MAR-2022 07:42,-No significant change was found- [address]2022-06-29 20:01:10 Test Item Value Reference Range Interpretation Comments Ventricular rate (test code = 253) Atrial rate (test code = 255) [place] interval (test code = 266) QRSD interval [...] significant change was found- [facility] screen [id number] 11:15:00 Test Item Value Reference Range Interpretation Comments Strep screen No beta hemolytic Specimen culture Streptococci InformationSpec imen isolate (test isolated Source: Throat Specimen code = 547-0) Site: Not othe rwise specified [facility] [id number] 11:15:00 Test Item Value Reference Range Interpretation Comments Strep screen No beta hemolytic Specimen culture Streptococci InformationSpec imen isolate (test isolated Source: Throat Specimen code = 547-0) Site: Not othe rwise specified [facility]- XR WRIST 3 + V [id number] 00:00:00 [facility] LAKEName: NNEKA SHANNONJEANETTE BETI : 1990 Sex: F 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 Views: 3 or more views.Frontal Oblique Lateral COMPARISON: No relevant prior studies [...] M.D. CC: Winnie Begum Technologist: RT Olivia(Ronit) Trnscrd Date/Time/By: 12/26/2021 (1120) : Dane y: [email or web address] Orig Print D/T: S: 12/26/2021 (1121) PAGE 1 Signed Report- XR CHEST 1 [id number] 00:48:00 [facility] : 1990 Sex: F FAX: Torrey Javed MD [phone] Fellows: St: REG FAX: Anca Smyth APR [phone] -- Name: REYNA EARLY [facility] : 1990 Age/S: 30/F [address] [place] [address] Unit #: [id number] Loc: [place] [address] Phys: Anca Smyth Acct: [id number] Dis Date: Status: REG ER PHONE #: [phone] Exam Date: 04/06/202141 FAX #: [phone] Reason: cough EXAMS: CPT CODE: [id number] XR CHEST 1 V 68942 Study: - XR CHEST 1 V 04/06/2021 12:21 AM Patient Name: REYNA EARLY MR: [id number] : 1990; Age: 30 years y/o Female Ordering Physician: Anca Smyth Clinical Indication: cough Comparison: Chest radiograph 10/21/2019 FINDINGS LUNGS: The hypoinflatedlungs are clear of consolidation, pleural effusion, and pneumothorax. HEART AND MEDIASTINUM: Normal size heart. LINES: None. OSSEOUS STRUCTURES: No fracture, dislocation, or suspicious focal osseous lesion. OTHER: None. IMPRESSION: Mildly hypoinflated, but clear lungs. SL: BAMINTER-H at 0048 Reported and signed by: Lucas Nicole M.D. CC: Torrey Javed MD; Anca Smyth Technologist: RT Magalie(Ronit) TrnscrdDate/Time/By: 04/06/2021 (0048) : By: [email or web address] Orig Print D/T: S: 04/06/2021 (005) PAGE 1 Signed ReportCoronavirus 2019 nCoV [id number] 00:35:00 Test Item Value Reference Range Interpretation Comments Coronavirus 2019 NEGATIVE Negative Negative re sults should be nCoV Bedside (test treated a s presumptive and, code = ifinconsistent with [id number]) clinical signs and symptoms or necessaryfor patient management, nancy uld be tested with an alternativemole cular assay. Negative result s do not preclude MGBT-IbE-8zljvo tion and should not be u sed as the sole basis forp atient management deci sions. Negative result s should beconsidered in the context of a patient's recent exposures,histo ry, presence of clinical sig ns and symptoms consis tentwith COVID-19. 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 (test code = 45029-8) Whether the patient has symptoms related to condition of interest (test code = 10549-9) Patient was hospitalized because of this condition (test code = 18370-2) Whether the patient was admitted to intensive care unit (ICU) for condition of interest (test code = 89785-3) Whether patient resides in a congregate care setting (test code = 90136-9) [facility] (COVID-19) RNA [Presence] in Respiratory specimen by KEENAN with probe [id number] 01:13:01 Test Item Value Reference Range Interpretation Comments SARS-CoV-2 (COVID-19) RNA Not detected Not-Detected [Presence] in Respiratory specimen by KEENAN with probe detection (test code = 97794-6) [facility]- XR CHEST 2 [id number] 20:09:00 [facility] 1990 Age/S:29 /F [address] [facility] Unit#:[id number] Loc: [place] [address] Phys: Enrico Davies MD Dis Date: PHONE #: [phone] Status: REG ER FAX #: [phone] Exam Date: 10/21/2019 Reason: cough EXAMS: CPT CODE: [id number] XR CHEST 2 V 33085 REASON FOR EXAM: cough Exam Order Date: 10/21/2019 7:36 PM Ordering: Enrico Davies MD Attending:Enirco Davies MD Location: PROCEDURE: - XR CHEST [...] SALMA MARCIAL RT(R),RDMS,CT Trnscrpt Data: 10/21/2019 (2008) [email or web address] Orig Print D/T: S: 10/21/2019 (2011) PAGE 1 Signed ReportCAPILLARY BLOOD [id number] 18:20:00 Test Item Value Reference Range Interpretation Comments TOTAL CO2 CONTENT TEST NOT 24.0-30.0 N Previously reported (test code = TCO2) PERFORMED MMOL/L resul t: 29.0 MMOL/LEdited by : THOMAS on 02/01/19:0755291808: TCO2 previously repo rted as: 29.0 MMOL/L CAPILLARY BLOOD TEST NOT 7.33-7.45 Previously r eported GAS PH (test code PERFORMED result: 7. 22 Edited = PHC) by: THOMAS o n 02/01/19:18002/01/19 180: CBG PH previously reported as: 7. 22 L CAPILLARY BLOOD TEST NOT 35-45 Previously r eported GAS PCO2 (test PERFORMED mmHg result: 66 code = PCO2C) mmHgEdited by: THOMAS on 02/01/19: 9 1807: CBG PCO 2 previously repo rted as: 66 *H mmHg CAPILLARY BLOOD TEST NOT 30-50 N Previously r eported GAS PO2 (test code PERFORMED mmHg result: 39 = PO2C) mmHgEdited by: THOMAS on 02/01/19: 9 1807: CBG PO2 previously repo rted as: 39 mmHg CBG HCO3 (test TEST NOT 18-24 Previously re ported code = HCO3C) PERFORMED mmol/L result: 27 mmol/LEdited by : THOMAS on 02/01/19: 9 180: HCO3C previously repo rted as: 27 H mmol/L CBG BASE EXCESS TEST NOT -4-4 N Previously r eported (test code = BEC) PERFORMED mmol/L result : -1.0 mmol/LEdited by : THOMAS on 02/01/19: 9 1807: BASE EX C previously repo rted as: [...] = FIO2C) by: THOMAS on 02/01/19: 9 180: FIO2 previously repo rted as: 21 % CAPILLARY BLOOD TEST NOT Previously r eported GAS DEL (test code PERFORMED result: I nfantVent = DELC) Edited by: CONSUELO RAYMOND on 02/01/19:1808: DELIVER Y previously repo rted as: InfantVent CAPILLARY BLOOD TEST NOT Performed by GAS PEEP (test PERFORMED cmH2O certified explosive operator bomb code = PEEPC) [facility]Previously reported result : [id number] by: [email or web address] on 03/07/19:0 03/07/191819: PEEP previously repo rted as: cmH2O Perfo rmed by certified explosive operator bomb at [facility]trPreviously reported result : 7 [id number] by: THOMAS on 02/01/19:1808: PEEP previously repo rted as: 7 cmH2O Performed by certified opera tor at [facility] CBG TEMPERATURE TEST NOT Previously r eported (test code = PERFORMED F result: 98.0 FE dited TEMPC) by: THOMAS o n 02/01/19:1808: TEMPC previously repo rted as: 98.0 F CAPILLARY BLOOD TEST NOT Previously r eported GAS SITE (test PERFORMED result: Heel Edited code = SITEC) by: THOMAS on 02/01/19:1808: SITE previously repo rted as: Heel VENOUS BLOOD [id number] 18:19:00 Test Item Value Reference Range Interpretation [...] y PEEP (test code PERFORMED cmH2O certified explosive operator bomb at = PEEPV) [facility]trPreviously reported result : [id number] by: [email or web address] on 03/07/19:181803/07/191818: VBG PEEP previously reported as: cm H2O Performed by certified opera tor at [facility]trPreviously reported result : 5 isN3CTtjwhw by: THOMAS on 02/01/19:180902/01/19 1810: VBG PEEP previously reported as: 5 cmH2O Performed by certified opera tor [facility] VENOUS BLOOD GAS TEST NOT [...] rted as: 29 - CT ABD PELVIS [id number] 00:56:00 Name: REYNA EARLY [facility] : 1990 Age/S: 28 / F [address] [place] [address] Blvd Unit #: [id number] Loc: [place] [address] 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 EXAMS: CPT CODE: [id number] CT ABD PELVIS W/CONT 48153 EXAM: CT, CT ABDOMEN PELVIS W CONTRAST: [...] AND RETROPERITONEUM: No ascites or free air. T here is no aortic aneurysm or dissection. Fat-containing umbilical hernia. Mild inflammatory changesin the subcutaneous fat around the umbilicus with trace subcutaneous air probably due to recent procedure. LYMPH NODES: Unremarkable. PELVIS: No pelvic mass or adenopathy. Enlarged uterus. Ovaries are not visualized. BLADDER: Unremarkable. OSSEOUS STRUCTURES: Suboptimally seen bilateral pars defect at L5 with PAGE 1 Signed Report (CONTINUED) Name: REYNA EARLY [facility] : 1990 Age/S: 28 / F [address] [place] [address] Unit #: [id number] Loc: [place] [address] Phys: Winnie Begum NP Acct: [id number] Dis Date: Status: REG ER PHONE #: [phone] Exam Date: 02/07/2019 0037 FAX #: [phone] Reason: s/p c- section, upper abd pain and fevers. EXAMS: CPTCODE: [id number] CT ABD PELVIS W/CONT 42859 (Continued) slight anterior listhesis of L5 on S1. Mild de generative changes at L5-S1. SOFT TISSUES: Mild bilateral [...] 5. Small fat- containing umbilical hernia. SL: JSPAULINODChristiana at 0056 Reported and signed by: Jairo Reynolds M.D. CC: Violeta Grijalva DO; Gabriel Torres MD; Winnie Begum NP Technologist:RT Tigre(R) CTDI: DLP: Trnscb Date/Time: 02/07/2019 (005) AntonioR.[email or web address] Orig Print D/T: S: 02/07/2019 (0059) PAGE 2 Signed Report COMPREHENSIVE METABOLIC [id number] 23:40:00 Test Item Value Reference Range Interpretation [...] TOTAL (test code = ALKP) COMPREHENSIVE METABOLIC [id number] 23:36:00 Test Item Value Reference Range Interpretation [...] TOTAL (test code = ALKP) CBC W/AUTO [id number] 23:33:00 Test Item Value Reference Range Interpretation [...] REQUIRED (test NO code = MDIFF) SURGICAL [id number] 08:10:00 RUN DATE: 02/04/19 [facility] *LIVE* PAGE 1 RUN TIME: 0810 Specimen Inquiry RUN USER: INTERFACE --------- ---PATIENT: REYNA EARLY #: [id number] LOC: [place] U #: [id number] AGE/SX: 28/F ROOM: [facility] RE02/01/19REG DR: Gabriel Torres MD : [birth year] BED: 1 DIS: STATUS: ADM IN TLOC: SPEC #: [id number] RECD: 02/02/19 STATUS: NASIM RUSSO #: [id number] [place]: 02/02/[address] [facility] [address]: Gabriel Torres MD ENTERED: 02/03/19 SP TYPE: SURG SPEC OTHR DR: Self Referred Erick Carbajal MD, JR, Patrick MDORDERED:GM LEVEL 4 CODES: [id number] - FALLOPIAN TUBE JM0283 - PLACENTA, NOS COPIES TO: Self Referred Gabriel Torres MD [address] [place] [id number] [email or web address] Erick Carbajal MD [address] [address] [email or web address] Roderick Daniel JR, MD [address] [facility] [address] [place] [address] PROCEDURES: GM LEVEL 4 (Incomplete) [...] CONTINUED ON NEXT PAGE RUN DATE: 02/04/19 [facility] *LIVE* PAGE 2 RUN TIME: 809 Specimen Inquiry RUN USER: INTERFACE SPEC #: [id number] PATIENT: REYNA EARLY #[id number] (Cont inued) GROSS AND MICROSCOPIC GROSS EXAMINATION: Received in [...] diameter fallopian tube (F). Received in formalin la beled left fallopian tube is a 5 cm [...] POST-OP DIAGNOSIS induced hypertension, GBS unknown, repeat with bilateral tubal ligation, delivered PRE-OP DIAGNOSIS induced hypertension, GBS unknown, repeat with bilateral tubal ligation, delivered Signed SIGNATURE ON FILE Domenico Sherwood Erick MOORE 02/04/19 0810 END OF REPORT CBC W/AUTO [id number] 07:37:00 Test Item Value Reference Range Interpretation [...] MDIFF) COMMENTS: POD #1 and #2COMPREHENSIVE METABOLIC [id number] 05:40:00 Test Item Value Reference Range Interpretation [...] code = ALKP) COMMENTS: POD #1CBC W/AUTO [id number] 05:36:00 Test Item Value Reference Range Interpretation [...] MDIFF) COMMENTS: POD #1 and #2VENOUS BLOOD [id number] 18:10:00 Test Item Value Reference Range Interpretation [...] -3.0 mm ol/LEdited by: THOMAS o n 02/01/19:1809 0 02/01/191809: HERMAN previ ously reported as: [...] med by certified (test code = PEEPV) explosive [facility]trPrevious ly reported result : 5 pwV1GPyownt by: THOMAS on 02/01/19:181 0 02/01/191809: VBG PEEP previously reported as: 5 cmH2O Performed by ce rtified explosive operator bomb at [facility] VENOUS BLOOD GAS TEMP F Previo usly reported (test code = TEMPV) result: 97.6 FEdited by: THOMAS on 02/01/19:1809: TEMPV pre viously reported as: 97 .6 F VENOUS BLOOD GAS SITE Other (test code = SITEV) VENOUS TCO2 (test Previously reported code = TCO2V) result: 29 Gamal lon by: THOMAS on 02/01/19:1809: TCO2V pre viously reported as: 29 CAPILLARY BLOOD [id number] 18:09:00 Test Item Value Reference Range Interpretation [...] t: 39 mmHgEdited by: THOMAS o n 02/01/19: 180: CBG PO2 p reviously reported as: 39 [...] d by certified PEEP (test code = explosive operator bomb a t [facility] Med CtrPrevious ly reported result : 7 [id number] by: THOMAS on 02/01/19:1808: PEEP prev iously reported as: 7 cmH2O Performed by ce rtified explosive operator bomb at [facility] CBG TEMPERATURE (test F Previo usly reported code = TEMPC) result: 98.0 F Edited by: THOMAS on 02/01/19:1808: TEMPC pre viously reported as: 98 .0 F CAPILLARY BLOOD GAS Previous ly reported SITE (test code = result: He el Edited by: SITE) JOANNEF on 02/01/19:7173731808: SITE prev iously reported as: Edgar el CAPILLARY BLOOD [id number] 17:48:00 Test Item Value Reference Range Interpretation [...] d by PEEP (test code = certified explosive operator bomb PEEPC) at [facility] CBG TEMPERATURE (test 98.0 F code = TEMPC) CAPILLARY BLOOD GAS Heel SITE (test code = SITEC) VENOUS BLOOD [id number] 14:27:00 Test Item Value Reference Range Interpretation [...] by (test code = PEEPV) certifie d explosive operator bomb at [facility] VENOUS BLOOD GAS TEMP 97.6 F (test code = TEMPV) VENOUS BLOOD GAS SITE Other (test code = SITEV) VENOUS TCO2 (test 29 code = TCO2V) CORD ARTERIAL BLOOD [id number] 14:03:00 Test Item Value Reference Range Interpretation [...] O2S/C) 9 % 25-45 L COMPREHENSIVE METABOLIC [id number] 17:24:00 Test Item Value Reference Range Interpretation [...] N TOTAL (test code = ALKP) URIC [id number] 17:24:00 Test Item Value Reference Range Interpretation Comments URIC ACID (test code = URIC) 4.6 mg/dL 2.6-7.2 N LACTIC DEHYDROGENASE(LDH)2019-01-31 17:24:00 Test Item Value Reference Range Interpretation Comments LACTIC DEHYDROGENASE(LDH) (test 154 IUnits/L 84-246 N code = LDH) URINALYSIS [id number] 17:09:00 Test Item Value Reference Range Interpretation [...] MUCU) TRACE /LPF NONE SEEN CBC W/AUTO [id number] 17:04:00 Test Item Value Reference Range Interpretation [...] (test NO code = MDIFF) COMPREHENSIVE METABOLIC [id number] 23:53:00 Test Item Value Reference Range Interpretation [...] N TOTAL (test code = ALKP) URIC [id number] 23:53:00 Test Item Value Reference Range Interpretation Comments URIC ACID (test code = URIC) 4.2 mg/dL 2.6-7.2 N LACTIC DEHYDROGENASE(LDH)2019-01-26 23:53:00 Test Item Value Reference Range Interpretation Comments LACTIC DEHYDROGENASE(LDH) (test 144 IUnits/L 84-246 N code = LDH) DRUGS OF ABUSE SCREEN [id number] 23:45:00 Test Item Value Reference Range Interpretation [...] ed for non-medical pur poses. AMNISURE (ROM) [id number] 23:43:00 Test Item Value Reference Range Interpretation Comments AMNISURE (ROM) TEST (test NEGATIVE NEGATIVE OP ENED:12/05/2018 code = AMNI) COMPREHENSIVE METABOLIC [id number] 23:39:00 Test Item Value Reference Range Interpretation [...] 20-125 TOTAL (test code = ALKP) URIC [id number] 23:39:00 Test Item Value Reference Range Interpretation Comments URIC ACID (test code = URIC) 4.2 mg/dL 2.6-7.2 N LACTIC DEHYDROGENASE(LDH)2019-01-26 23:39:00 Test Item Value Reference Range Interpretation Comments LACTIC DEHYDROGENASE(LDH) (test IUnits/L 84-246 code = LDH) DRUGS OF ABUSE SCREEN [id number] 23:36:00 Test Item Value Reference Range Interpretation [...] us ed for non-medical pur poses. URINALYSIS [id number] 23:31:00 Test Item Value Reference Range Interpretation [...] MUCU) TRACE /LPF NONE SEEN CBC W/AUTO [id number] 23:26:00 Test Item Value Reference Range Interpretation [...] REQUIRED (test NO code = MDIFF) URINALYSIS [id number] 14:32:00 Test Item Value Reference Range Interpretation [...] MUCU) TRACE /LPF NONE SEEN COMPREHENSIVE METABOLIC [id number] 14:30:00 Test Item Value Reference Range Interpretation [...] N TOTAL (test code = ALKP) URIC [id number] 14:30:00 Test Item Value Reference Range Interpretation Comments URIC ACID (test code = URIC) 4.3 mg/dL 2.6-7.2 N LACTIC DEHYDROGENASE(LDH)2019-01-20 14:30:00 Test Item Value Reference Range Interpretation Comments LACTIC DEHYDROGENASE(LDH) (test 128 IUnits/L 84-246 N code = LDH) COMPREHENSIVE METABOLIC [id number] 14:20:00 Test Item Value Reference Range Interpretation [...] 20-125 TOTAL (test code = ALKP) URIC [id number] 14:20:00 Test Item Value Reference Range Interpretation Comments URIC ACID (test code = URIC) 4.3 mg/dL 2.6-7.2 N LACTIC DEHYDROGENASE(LDH)2019-01-20 14:20:00 Test Item Value Reference Range Interpretation Comments LACTIC DEHYDROGENASE(LDH) (test IUnits/L 84-246 code = LDH) CBC W/AUTO [id number] 14:06:00 Test Item Value Reference Range Interpretation [...] (test NO code = MDIFF) RAPID PLASMA [id number] 12:19:00 Test Item Value Reference Range Interpretation Comments RAPID PLASMA REAGIN (test code = NONREACTIVE NONREACTIVE RPR) AG HEPATITIS B [id number] 12:19:00 Test Item Value Reference Range Interpretation Comments AG HEPATITIS B SURFACE NON REACTIVE INDEX NonReactive (test code = HBSAG) AB HIV 1 12:19:00 Test Item Value Reference Range Interpretation Comments AB HIV 1 2 (test code = NONREACTIVE INDEX NONREACTIVE [id number]) COMPREHENSIVE METABOLIC [id number] 05:49:00 Test Item Value Reference Range Interpretation [...] N TOTAL (test code = ALKP) URIC [id number] 05:49:00 Test Item Value Reference Range Interpretation Comments URIC ACID (test code = URIC) 4.4 mg/dL 2.6-7.2 N LACTIC DEHYDROGENASE(LDH)2019-01-08 05:49:00 Test Item Value Reference Range Interpretation Comments LACTIC DEHYDROGENASE(LDH) (test 110 IUnits/L 84-246 N code = LDH) COMPREHENSIVE METABOLIC [id number] 05:43:00 Test Item Value Reference Range Interpretation [...] 20-125 TOTAL (test code = ALKP) URIC [id number] 05:43:00 Test Item Value Reference Range Interpretation Comments URIC ACID (test code = URIC) 4.4 mg/dL 2.6-7.2 N LACTIC DEHYDROGENASE(LDH)2019-01-08 05:43:00 Test Item Value Reference Range Interpretation Comments LACTIC DEHYDROGENASE(LDH) (test IUnits/L 84-246 code = LDH) URINALYSIS [id number] 05:35:00 Test Item Value Reference Range Interpretation [...] = 1+ /HPF NONE A YEASTUBD) URINALYSIS [id number] 05:33:00 Test Item Value Reference Range Interpretation [...] 1+ /HPF NONE A YEASTUBD) CBC W/AUTO [id number] 05:25:00 Test Item Value Reference Range Interpretation [...] (test code NO = MDIFF) - US [id number] 00:53:00 Name: REYNA EARLY [facility]ly [facility] : 1990 Age/S: 28 / F [address] [place] [address] Unit #: [id number] Loc: [place] [address] Phys: Jayme Christianson MD Acct: [id number] Dis Date: Status: ADM IN PHONE #: [phone] Exam Date: 01/07/2019 000 FAX #: [phone] Reason: Hard to find FHT EXAMS: CPT CODE: [id number] US LTD 53941 EXAM: US, US LTD: 01/07/2019, 2356 hours [...] intrauterine gestation with positive cardiac activity. SL: DONTAEH at 0053 Reported and signed by: Jairo Reynolds M.D. CC: Gabriel Torres MD; Jayme Christianson Technologist: Valeria Marr RDMS(Lily) Trnscb Date/Time: 01/08/2019 (005) [email or web address] Orig Print D/T: S: 01/08/2019 (0056) Probe: PAGE 1 Signed ReportRAPID PLASMA [id number] 21:20:00 Test Item Value Reference Range Interpretation Comments RAPID PLASMA REAGIN (test code = RPR) NONREACTIVE AG HEPATITIS B [id number] 21:20:00 Test Item Value Reference Range Interpretation Comments AG HEPATITIS B SURFACE NON REACTIVE INDEX NonReactive (test code = HBSAG) AB HIV 1 21:20:00 Test Item Value Reference Range Interpretation Comments AB HIV 1 2 (test code = NONREACTIVE INDEX NONREACTIVE [id number]) RAPID PLASMA [id number] 16:37:00 Test Item Value Reference Range Interpretation Comments RAPID PLASMA REAGIN (test code = RPR) NONREACTIVE AG HEPATITIS B [id number] 16:37:00 Test Item Value Reference Range Interpretation Comments AG HEPATITIS B SURFACE NON REACTIVE INDEX NonReactive (test code = HBSAG) AB HIV 1 16:37:00 Test Item Value Reference Range Interpretation Comments AB HIV 1 2 (test code = FUQ01EH) INDEX NONREACTIVE CBC W/AUTO [id number] 16:23:00 Test Item Value Reference Range Interpretation [...] (test NO code = MDIFF) COMPREHENSIVE METABOLIC [id number] 16:19:00 Test Item Value Reference Range Interpretation [...] N TOTAL (test code = ALKP) URINALYSIS [id number] 16:14:00 Test Item Value Reference Range Interpretation [...] = MUCU) TRACE /LPF NONE SEEN URINALYSIS [id number] 13:59:00 Test Item Value Reference Range Interpretation [...] /LPF NONE SEEN - XR CHEST 2 [id number] 11:56:00 FAX: Gabriel Gomez [phone] Fellows: St: REG FAX: Shanice Rhodes DO Name: REYNA EARLY [facility]ly [facility] : 1990 Age/S: 28/F [address] [place], [place] [address]vd Unit #: [id number] Loc: [place] [address] Phys: Shanice Rhodes DO Acct: [id number] Dis Date: Status: REG ER PHONE #: [phone] Exam Date: 12/15/2018 1152 FAX #: [phone] Reason: cough EXAMS: CPT CODE: [id number] XR CHEST 2 L02285 CHEST RADIOGRAPHS - PA AND LATERAL: COMPARISON: None CLINICAL HISTORY: cough Cardiomediastinal silhouette is stable in size. Lungs are clear. There is a small focal eventration of the anterior right hemidiaphragm. No vascular congestion or pneumothorax. IMPRESSION: No acute pulmonary abnormality. at 1156 Reported and signed by: Roni Pal M.D. CC: Gabriel Torres MD; Shanice Rhodes DO Technologist: RT Bro(R) Trnscrd Date/Time/By: 12/15/2018 (5746) : By: [email or web address] Orig Print D/T: S: 12/15/2018 (1472) PAGE 1 Signed Report- XR CHEST 1 [id number] 22:02:00 FAX: Gabriel Gomez [phone] Fellows: St: REG FAX: Zain Andres MD [phone] Name: NNEKACHUWHITLEY BETI [facility]ly [facility] : 1990 Age/S: 28/F [address] [place] [address] Unit #: [id number] Loc: [place] [address] Phys: Zain Harris MD Acct: [id number] Dis Date: Status: REG ER PHONE #: [phone] Exam Date: 12/12/2018 2200 FAX #: [phone] Reason: cough EXAMS: CPT CODE: [id number] XR CHEST 1 V 16272 SINGLE VIEW RADIOGRAPH CHEST INDICATION: cough. TECHNIQUE: [...] S: 12/12/2018 (2204) PAGE 1 Signed ReportURINALYSIS [id number] 15:23:00 Test Item Value Reference Range Interpretation [...] /LPF NONE SEEN DRUGS OF ABUSE SCREEN [id number] 11:29:00 Test Item Value Reference Range Interpretation [...] ed for non-medical pur poses. COMPREHENSIVE METABOLIC [id number] 11:20:00 Test Item Value Reference Range Interpretation [...] TOTAL (test code = ALKP) COMPREHENSIVE METABOLIC [id number] 11:19:00 Test Item Value Reference Range Interpretation [...] code = ALKP) DRUGS OF ABUSE SCREEN [id number] 11:14:00 Test Item Value Reference Range Interpretation [...] us ed for non-medical pur poses. URINALYSIS [id number] 10:58:00 Test Item Value Reference Range Interpretation [...] MUCU) TRACE /LPF NONE SEEN CBC W/AUTO [id number] 10:50:00 Test Item Value Reference Range Interpretation [...] NO code = MDIFF) - US RETROPERITONEAL [id number] 08:56:00 Name: REYNA EARLY : 1990 Age/S: 28 / F [address] [place] [address] Unit#: [id number] Loc: [place] [address] Phys: La Nena Dong MD Acct: [id number] Dis Date: Status: REG ER PHONE #: [phone] Exam Date: 11/25/2018 0851 FAX #: [phone] Reason: left flank pain EXAMS: CPT CODE: [id number] US RETROPERITONEAL COM 00252 EXAM: US RETROPERITONEAL COMPLETE DATE: 11/25/2018 7:25 [...] Evaluation is limited due to pain. SL: [id number] PAGE 1 Signed Report (CONTINUED) Name: REYNA EARLY : 1990 Age/S: 28 / F [address] [place] [address] Unit #: [id number] Loc: [place] [address] Phys: La Nena Dong MD Acct: [id number] Dis Date: Status: REG ER PHONE #: [phone] Exam Date: 11/25/2018 0851 FAX #: [phone] Reason: left flank pain EXAMS: CPT CODE: [id number] US RETROPERITONEAL COM 43795 (Continued) at 0856 Reported and signed by: Carloz Farrell D.O. CC: Gabriel Torres MD; Marcial Schultz MD; La Nena Dong MD Technologist: Dilcia Hickey RDMS(SHIRLEY)(AB) Trnscb Date/Time: 11/25/2018 (855) [email or web address] Orig Print D/T: S: 11/25/2018 (0851) Probe: PAGE 2 Signed Report- XR CHEST 1 [id number] 19:22:00 FAX: Violeta Marie DO [phone] Fellows: St: REG FAX: Gabriel Gomez [phone] --- Name: REYNA EARLY [facility]ly [facility] : 1990 Age/S: 28/F [address] [place] [address] Unit #: [id number] Loc: [address] [address] Phys: Violeta Grijalva DO Acct: [id number] Dis Date: Status: REG ER PHONE #: [phone] Exam Date: 11/10/2018 1900 FAX #: [phone] Reason: cough/chest pain EXAMS: CPT CODE: [id number] XR CHEST 1 V 71178 EXAM: Single view portable AP chest. EXAM [...] NONE SEEN QNS NOTIFIED JEAN MCKNIGHT 1819- [id number] 19:01:00 Name: REYNA EARLY [facility]ly [facility] : 1990 Age/S: 28 / F [address] [place], [place] [address] Unit#: [id number] Loc: [place] [address] Phys: Violeta Grijalva DO Acct: [id number] Dis Date: Status: REG ER PHONE #: [phone] Exam Date: 11/10/2018 1831 FAX #: [phone] Reason: abdominal pain/ chest pain EXAMS: CPT CODE: [id number] US LTD 02196 Exam: Limited obstetric ultrasound. Examdate: November 10, [...] be performed on a nonemergent basis. at 190 Reported and signed by: Duyen Barajas M.D. CC: Violeta Grijalva DO; Gabriel Torres MD Technologist: Miriam Majano RDMS (AB) (OB) Trnscb Date/Time: 11/10/2018 (1900) Gasper Orig Print D/T: S: 11/10/2018 (1903) Probe: PAGE 1 Signed ReportCOMPREHENSIVE METABOLIC [id number] 18:39:00 Test Item Value Reference Range Interpretation [...] TOTAL (test code = ALKP) CBC W/AUTO [id number] 18:25:00 Test Item Value Reference Range Interpretation [...] code NO = MDIFF) - DOP VEIN [id number] 18:47:00 Name: REYNA EARLY [facility]ly [facility] : 1990 Age/S: 18 / F [address] [place] [address] Unit #: [id number] Loc: [place] [address] Phys: Joselin Alvarez MD Acct: [id number] Dis Date: Status: UNK PHONE #: [phone] Exam Date: 12/21/2008 1843 FAX #: [phone] Reason: 36WK IUP SWELLING RLE EXAMS: CPT CODE: [id number] DOP VEIN VERNON 42402 Bilateral lower extremity venous Doppler:HISTORY: , right lower extremity swelling. FINDINGS: Real-time duplex and color Doppler sonography was completed in the deep venous system of both lower extremities. All of the veins that were evaluated show normal flow signal and venous compression. There is no intraluminal thrombus in eitherlower extremity. Normal response to augmentation. IMPRESSION: Negative for bilateral lower extremityDVT. at 1848 Reported and signed by: Blaise Wylie M.D. CC: Joselin Contreras Technologist: Larissa Olivas RDMS(Lily)(OB) Trnscb Date/Time: 12/21/2008 (1847) EffieG Orig Print D/T: S: 12/21/2008 (1848) Probe: PAGE 1 Signed Report Notes Date/Time Note Provider Source 2022-05-05 09:30:00-00:00 [facility] ([facility]) EMERGENCY PROVIDER REPORT REPORT#:[id number] REPORT STATUS: Signed DATE:05/05/22 TIME: 929 PATIENT: REYNA EARLY UNIT #: [id number] ROOM/BED: AGE: 31 SEX: F PCP PHYS: No Primary or Family Ph ysician SERVICE AUTHOR: Winnie Begum MORTISING MACHINE OPERATOR * ALL edits or amendments must be made on the [employer]/computer document * Winnie Begum 05/05/22929: HPI-Recheck W/B/S Free Text HPI Notes Free [...] PACKET Prov: 04/06/21 D-METHORPHAN HB/P-EPD HCL/BPM (BROMPHENI X-[id number] SYR) 10 ML PO Q4H PRN PRN [...] Ox 100 05/05 919 B/P 141/95 05/05 0919 B/P Mean 110 05/05 0919 O2 Delivery Room air 05/05 919 Temp 36.9 05/05 919 Pulse 92 05/05 919 Resp 17 05/05 919 Last Documented: Result Date Time Pulse Ox 100 05/05 919 B/P 141/95 05/05 0919 B/P Mean 110 [...] )( Discharged to Home Yes )( Time 929 )( Date 05/05/22 Discharge/Care Plan Counseled Regarding [...] symptoms should prompt an immediate return [facility] or the closest emergency department or a call to 911. Regina Ruiz 05/07/22 0656: Patient Discharge Departure Supervising Physician Note MidLv Saw Pt Alone I have reviewed the PA/LABOR RELATIONS SUPERVISOR's note and plan of car e. I was available for consultation as needed at al l times during the patient's visit in the emergency department. I agree with the clinical impression , plan and disposition. Electronically Signed by Winnie Begum on 0 05/05/22 at 1456 Electronically Signed by Regina Ruiz MD on at 0656 RPT #:[id number] END OF REPORT 2021-12-26 11:38:00-00:00 [facility] ([facility]) EMERGENCY PROVIDER REPORT REPORT#:[id number] REPORT STATUS: Signed DATE:12/26/21 TIME: 1138 PATIENT: REYNA EARLY UNIT #: [id number] ROOM/BED: AGE: 31 SEX: F PCP PHYS: No Primary or Family Ph ysician SERVICE AUTHOR: Winnie Begum * ALL edits or amendments must be made on the [employer] document * Winnie Begum 12/26/21 1138: HPI-Wrist Prob/Inj Free Text HPI Notes Free Text HPI Notes 31-year-old female presents to the emerg ency room with complaint of left wrist pain. States that has increa sed sharp radiating pain with any type of movement. 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 [...] PACKET Prov: 04/06/21 D-METHORPHAN HB/P-EPD HCL/BPM (BROMPHENI [id number] SYR) 10 ML PO Q4H PRN PRN [...] Ox 99 12/26 954 B/P 143/94 12/26 954 B/P Mean 110 12/26 0955 O2 Delivery Room air 12/26 954 Temp 36.6 12/26 954 Pulse 74 12/26 09 Resp 17 12/26 954 Last Documented: Result Date Time Pulse Ox [...] addressed any concerns. The patient and/or careg margaert have as good an understanding of the [...] symptoms should prompt an immediate return [facility] or the closest emergency department or a call to 911. Brooks Toribio 01/02/22 0248: Patient Discharge Departure Discharge/Care Plan Referrals Provider Referral: Ashkan Alvarez MD Address: [address] [place] [address] Supervising Physician Note MidLv Saw Pt Alone I have reviewed the PA/LABOR RELATIONS SUPERVISOR's note and plan of car e. I was available for consultation as needed at al l times during the patient's visit in the emergency department. I agree with the clinical impression , plan and disposition. Electronically Signed by Winnie Begum on 0 12/28/21 at 1257 at 0248 RPT #:[id number] END OF REPORT 2021-04-06 01:06:00-00:00 [facility] ([facility]) EMERGENCY PROVIDER REPORT REPORT#:[id number] REPORT STATUS: Signed DATE:04/06/21 TIME: 105 PATIENT: REYNA EARLY UNIT #: [id number] ROOM/BED: AGE: 30 SEX: F PCP PHYS: No Primary or Family Ph ysician SERVICE AUTHOR: Anca Smyth APR CORONER TRANSPORT TECHNICIAN * ALL edits or amendments must be made on the [employer]/computer document * Anca Smyth 04/06/21 0106: HPI-URI/Cough/Cold Free Text HPI Notes Free Text [...] other symptoms. General Initial Greet Date/Time 04/05/21 1015 Presentation Chief Complaint Cough, non-productive, Upper res [...] 96 04/05 2358 Resp 20 04/05 2358 Review of [...] No palpable masses or pulsatile masses. Negative [place] Sign. No TTP at [place] Ext: [...] 7 Influenza Virus Type A Antigen - CO MP NASOPHARG Recent Impressions: RADIOLOGY - XR CHEST 1 V 04/06 0042 Report Impression - Status: SIGNED Entered: 04/06/2021 0051 IMPRESSION: Mildly hypoinflated, but clear lungs. SL: TPAINTER-H Impression By: Alexey - Lucas Nicole M.D. Lab Imaging Statement [...] Admin Ketorolac 10 MG X1ED STA 04/06 002 DC 04/06 Tromethamine PO 04/06 0022 0038 Eye, Ear, Nose And Throat (Een Sig/Farrukh Start time Last Medication Dose Route Stop Time Status Admin Dexamethasone 10 MG X1ED STA 04/06 002 DC 03/28 0 PO 04/06 0022 0038 [...] directed on package. D-METHORPHAN HB/P-EPD HCL/BPM (BROMPHENI A-[id number] SYR) 10 ML PO Q4H PRN PRN [...] 0608: Patient Discharge Departure Supervising Physician Note MidLv Saw Pt Alone I have reviewed the PA/LABOR RELATIONS SUPERVISOR's note and plan of car e. I was available for consultation as needed at al l times during the patient's visit in the emergency department. I agree with the clinical impression , plan and disposition. at 0212 Electronically Signed by Torrey Javed MD on at 0609 RPT #:[id number] END OF REPORT 2021-04-06 01:06:00-00:00 [facility] PROVID[facility] REPORT REPORT#:[id number] REPORT STATUS: Signed DATE:04/06/21 TIME: 0106 PATIENT: REYNA EARLY UNIT #: [id number] ROOM/BED: AGE: 30 SEX: F PCP PHYS: No Primary or Family Ph ysician SERVICE AUTHOR: Anca Smyth APR CORONER TRANSPORT TECHNICIAN * ALL edits or amendments must be made on the Teles[employer]/computer document * HPI-URI/Cough/Cold Free Text HPI Notes [...] 77 04/05 2358 O2 Delivery Room air 04/058 Temp 36.3 04/05 2358 Pulse 96 04/05 2358 Resp 20 04/058 Last Documented: Result Date Time Pulse Ox 96 04/05 2358 B/P 117/57 04/05 2358 B/P Mean 77 04/05 2358 O2 Delivery Room air 04/058 Temp 36.3 04/05 2358 Pulse 96 04/05 2358 Resp 20 04/05 2358 Review of [...] No palpable masses or pulsatile masses. Negative [place] Sign. No TTP at [place] Ext: [...] RADIOLOGY - XR CHEST 1 V 04/06 004 Report Impression - Status: SIGNED Entered: 04/06/2021 [...] Admin Albuterol/Ipratropium 3 ML X1ED STA 04/06 0021 DC 04/06 NEB 04/06 0022 0151 Central Nervous System Agents Sig/Farrukh Start time Last Medication Dose Route Stop Time Status Admin Ketorolac 10 MG X1ED STA 04/06 21 DC 04/06 Tromethamine PO 04/06 22 0038 Eye, Ear, Nose And Throat (Een Sig/Farrukh Start time Last Medication Dose Route Stop Time Status Admin Dexamethasone 10 MG X1ED STA 04/06 21 DC 03/28 0 PO 04/06 22 0038 Patient Discharge Departure Vital Signs/Condition Vital Signs First Documented: Result Date Time Pulse Ox 96 04/05 2358 B/P 117/57 / 2358 B/P Mean 77 04/05 2358 O2 Delivery Room air 04/05 2358 Temp 36.3 / 2358 Pulse 96 07/ 2358 Resp 20 04/05 2358 Last Documented: Result Date Time Pulse Ox 96 / 2358 B/P 117/57 / 2358 B/P Mean 77 / 2358 O2 Delivery Room air 04/05 2358 Temp 36.3 /09 2358 Pulse 96 / 2358 Resp 20 04/05 2358 All vital [...] directed on package. D-METHORPHAN HB/P-EPD HCL/BPM (BROMPHENI H-[id number] SYR) 10 ML PO Q4H PRN PRN [...] specialist within 1-3 days at 0212 RPT #:[id number] END OF REPORT 2019-10-21 19:41:00-00:00 [facility] ([facility]) EMERGENCY PROVIDER REPORT REPORT#:[id number] REPORT STATUS: Signed DATE:10/21/19 TIME: 1940 PATIENT: REYNA EARLY UNIT #: [id number] ROOM/BED: AGE: 29 SEX: F PCP PHYS: No Primary or Family Ph ysician SERVICE AUTHOR: Enrico Davies MD * ALL edits or amendments must be made on the Telespree/computer document * HPI-URI/Cough/Cold General Confirmed Patient Yes [...] of this section were scribed by Risa Fragoso on 10/21/19 at 1949 Review of Systems [...] of this section were scribed by Risa Fragoso on 10/21/19 at 1941 Past Medical History [...] of this section were scribed by Risa Fragoso on 10/21/19 at 1949 Physical Exam Vital [...] of this section were scribed by Risa Fragoso on 10/21/19 at 1949 Interpretation Diagnostics Lab [...] of this section were scribed by Risa Fragoso on 10/21/19 at 1949 Re-Evaluation MDM Re-Evaluation/Progress [...] By signing my name below, I, Risa Fragoso, attest that this document has been prepared [...] of this section were scribed by Risa Fragoso on 10/21/19 at 1949 Electronically Signed by Enrico Davies MD on 0 10/21/19 at 2025 RPT #:[id number] END OF REPORT 2019-02-06 22:36:00-00:00 [facility]) EMERGENCY PROVIDER REPORT REPORT#:[id number] REPORT STATUS: Signed DATE:02/06/19 TIME: 2235 PATIENT: REYNA EARLY UNIT #: [id number] ROOM/BED: AGE: 28 SEX: F PCP PHYS: Gabriel Torres MD SERVICE AUTHOR: Winnie Begum rd LABOR RELATIONS SUPERVISOR * ALL edits or amendments must be made on the Telespree/computer document * HPI-Abd Pain F Under 40 [...] w/ c/o up per abd pain since 170. Pt states the pain waxes and wa [...] PE General/Const General/Const Awake, Alert, Well appearing, Molded Goods Controls Operator perative Text/Dict Notes Became tearful during exam [...] Diagnostics Lab Results Interpretation Results Laboratory Tests 02/06/19 2313: [Embedded Image Not Available] Laboratory Tests: 02/06 [...] (Auto) (14.0 - 32.0 %) 7.[address] [place] % (Auto) (4.8 - 9.0 %) 4.6 L Eos % (Auto) (0.3 - 3.7 %) 1.4 Baso % (Auto) (0.0 - 2.0 %) 0.3 Neut # (Auto) (2.0 - 7.6 x10 3/uL) 9.12 H Lymph # (Auto) (1.0 - 3.8 x10 3/uL) 0.[address] [place] # (Auto) (0.1 - 0.8 x10 3/uL) [...] (0.0 - 0.1 x10 3/uL) 0. 00 Microbiology: Date/Time Procedure - Status Source Growth 02/07 2356 Urine Culture - WKST URINE 02/06 2314 Blood Culture - RECD BLOOD 02/06 2313 Blood Culture - RECD BLOOD Recent [...] umbilical hernia. SL: SHANA Impression By: [email or web address] Sisi Reynolds M.D. Lab Imaging Statement Laboratory radiographic [...] Interpret - Radiolog ist Reviewed by ED LABOR RELATIONS SUPERVISOR Portions of this section were scribed by [...] feeding while taking medication. Time of Re-Eval 114 )( Re-Eval Status Improved ED Course Medication(s) Ordered Medication(s) Ordered: Central Nervous System Agents Sig/Farrukh Start time Last Medication Dose Route Stop Time Status Admin Morphine Sulfate 4 MG X1ED STA 02/06 2317 DC IV 02/068 2319 Diagnostic Agents Sig/Farrukh Start time Last Medication Dose Route Stop Time Status Admin Iohexol 500 ML .STK-MED ONE 02/07 0036 DC 02/07 PO 02/07 37 0036 Iopamidol 100 ML .STK-MED ONE 02/07 003 DC IV 02/07 37 0036 Electrolytic, Caloric, And Kong Sig/Farrukh Start time Last Medication Dose Route Stop Time Status Admin Sodium Chloride 1,000 ML X1ED STA 02/07 2236 DC 02/06 IV 02/06 2335 2312 Gastrointestinal Drugs Sig/Farrukh Start time Last Medication Dose Route Stop Time Status Admin Ondansetron HCl 4 MG X1ED STA 02/06 2237 DC SL 02/06 2238 2312 Portions of this section were scribed by Octavia Echavarria on 02/07/19 at 0114 Patient Discharge Departure Vital Signs/Condition Vital Signs First Documented: Result Date Time Pulse Ox 98 02/06 2208 B/P 137/80 / 2208 B/P Mean 99 02/068 O2 Delivery Room air 02/06 220 Temp 37.0 02/07 2208 Pulse 97 02/06 2208 Resp 16 02/068 Last Documented: Result Date Time Pulse Ox 98 02/06 2208 B/P 137/80 / 2208 B/P Mean 99 02/06 2208 O2 Delivery Room air 02/06 2208 Temp 37.0 02/07 2208 Pulse 97 [...] on 02/07/19 at 0114 at 0150 RPT #:[id number] END OF REPORT 2019-02-06 22:36:00-00:00 [facility] EMERGENCY PROVIDER REPORT REPORT#:[id number] REPORT STATUS: Signed DATE:02/06/19 TIME: 2235 PATIENT: REYNA EARLY UNIT #: [id number] ROOM/BED: AGE: 28 SEX: F PCP PHYS: Gabriel Torres MD SERVICE AUTHOR: Winnie Begum rd LABOR RELATIONS SUPERVISOR * ALL edits or amendments must be made on the Teles[employer]ree/computer document * Winnie Begum 02/06/192235: HPI-Abd Pain [...] w/ c/o up per abd pain since 1699. Pt states the pain waxes and wa [...] Time Pulse Ox 98 02/068 B/P 137/80 02/06 2208 B/P Mean 99 02/07 2208 O2 Delivery Room air 02/07 2208 Temp 37.0 02/07 2208 Pulse 97 02/07 2208 Resp 16 02/07 2208 Last Documented: Result Date Time Pulse Ox 98 02/06 2208 B/P 137/80 02/068 B/P Mean 99 02/07 2208 O2 Delivery Room air 02/07 2208 Temp 37.0 02/07 2208 Pulse 97 02/07 2208 Resp 16 02/07 2208 Review of Vital Signs Reviewed Focused PE General/Const General/Const Awake, Alert, Well appearing, Molded Goods Controls Operator perative Text/Dict Notes Became tearful during exam [...] (Auto) (14.0 - 32.0 %) 7.[address] [place] % (Auto) (4.8 - 9.0 %) 4.6 L Eos % (Auto) (0.3 - 3.7 %) 1.4 Baso % (Auto) (0.0 - 2.0 %) 0.3 Neut # (Auto) (2.0 - 7.6 x10 3/uL) 9.12 H Lymph # (Auto) (1.0 - 3.8 x10 3/uL) 0.[address] [place] # (Auto) (0.1 - 0.8 x10 3/uL) [...] (0.0 - 0.1 x10 3/uL) 0. 00 Microbiology: Date/Time Procedure - Status Source Growth 02/06 235 Urine Culture - COMP URINE 02/06 2314 [...] fat-containing umbilical hernia. SL: BERNY-H Impression By: [email or web address] - Jairo Reynolds M.D. [...] Interpret - Radiolog ist Reviewed by ED LABOR RELATIONS SUPERVISOR Portions of this section were scribed by [...] Sulfate 4 MG X1ED STA 02/067 DC IV 02/06 2318 2319 Diagnostic Agents Sig/Farrukh Start time Last Medication Dose Route Stop Time Status Admin Iohexol 500 ML .STK-MED ONE 02/07 0036 DC 01/26 3 PO 02/07 0037 0036 Iopamidol 100 ML [...] MG X1ED STA 02/06 2237 DC SL 05/12 2238 2312 Portions of this section were scribed [...] by Octavia Echavarria on 02/07/19 at 0114 Violeta Grijalva [birth year]: HPI-Abd Pain F Under 40 General Initial Greet Date/Time 02/06/192225 Past Medical History - Adult Allergies Coded [...] Saw Pt Alone I have reviewed the PA/LABOR RELATIONS SUPERVISOR's note and plan of car e. I was available for consultation as needed at al l times during the patient's visit in the emergency department. I agree with the clinical impression , plan and disposition. at 0150 Electronically Signed by Violeta Grijalva DO on at 2159 RPT #:[id number] END OF REPORT 2019-02-04 07:27:00-00:00 [facility] ([facility]) OB Postpart Progr Note REPORT#:[id number] REPORT STATUS: Signed DATE:02/04/19 TIME: 726 PATIENT: REYNA EARLY UNIT #: [id number] ROOM/BED: [place] [address] : 90 AGE: 28 SEX: F ATTEND: Frank Torres MD ADM AUTHOR: Jayme Christianson * ALL edits or amendments must be made on the el [email or web address]/computer document * Subjective Subjective Comments: AVSS No [...] (Auto) (14.0 - 32.0 %) [address] [place] % (Auto) (4.8 - 9.0 %) 9.3 H 9.7 H Eos % (Auto) (0.3 - 3.7 %) 0.7 0.0 L Baso % (Auto) (0.0 - 2.0 %) 0.4 0.1 Neut # (Auto) (2.0 - 7.6 x10 3/uL) 6.12 11.68 H Lymph # (Auto) (1.0 - 3.8 x10 3/uL) 2.[address] [place] # (Auto) (0.1 - 0.8 x10 3/uL) 0.94 H 1.52 H Eos # (Auto) (0.0 - 0.2 x10 3/uL) 0.07 0.00 Baso # (Auto) (0.0 - 0.2 x10 3/uL) 0.04 0.02 Abs Immat Gran (auto) (0.00 - 0.03 x10 3/uL) 0. 12 H 0.15 H Add Manual Diff NO [...] 1 week See Orders at 0728 RPT #:[id number] END OF REPORT 2019-02-03 12:49:00-00:00 [facility] ([facility]) OB Postpart Progr Note REPORT#:[id number] REPORT STATUS: Signed DATE:02/03/19 TIME: 1249 PATIENT: REYNA EARLY UNIT #: [id number] ROOM/BED: [place] [address] : 90 AGE: 28 SEX: F ATTEND: Frank Torres MD ADM AUTHOR: Gabriel Torres MD * ALL edits or amendments must be made on the el [employer] document * Subjective Subjective EGA weeks/days: 33+6 [...] % (Auto) (14.0 - 32.0 %) 28.0 [place] % (Auto) (4.8 - 9.0 %) 9.3 H Eos % (Auto) (0.3 - 3.7 %) 0.7 Baso % (Auto) (0.0 - 2.0 %) 0.4 Neut # (Auto) (2.0 - 7.6 x10 3/uL) 6.12 Lymph # (Auto) (1.0 - 3.8 x10 3/uL) 2.84 [place] # (Auto) (0.1 - 0.8 x10 3/uL) 0.94 H Eos # (Auto) (0.0 - 0.2 x10 3/uL) 0.07 Baso # (Auto) (0.0 - 0.2 x10 3/uL) 0.04 Abs Immat Gran (auto) (0.00 - 0.03 x10 3/uL) 0. 12 H Add Manual Diff NO Immature Gran % (0.0 - 2.0 %) 1.2 Nucleated RBC % (0 - 0 %) 0.0 Nucleated RBCs # (Man) (0.0 - 0.1 x10 3/uL) 0.0 0 Diagnosis, Assessment Plan Diagnosis, Assessment Plan Assessment: pre-eclampsia (s/p Mag ) Plan: routine care, Diet as tolerated . Consultation(s): Consultation: anesthesia at 1251 RPT #:[id number] END OF REPORT 2019-02-02 16:04:00-00:00 [facility] ([facility]) OB Disch REPORT#:[id number] REPORT STATUS: Signed DATE:02/02/19 TIME: 1604 PATIENT: REYNA EARLY UNIT #: [id number] ROOM/BED: [place] [address] : 90 AGE: 28 SEX: F ATTEND: Frank Torres MD ADM AUTHOR: Gabriel Torres MD * ALL edits or amendments must be made on the [employer]/computer document * Subjective Subjective Admission EGA (wks/days): 33+6 Weeks EGA at delivery (wks/days): 33+6 Status/day: post operative Objective General VS: Vital Signs Date Temp Pulse Resp B/P B/P Mean Pulse Ox FiO2 02/01-02/02 36.5-37.1 70-117 16 115-191/56-97 80 .0-117.0 77-100 Last Documented: Result Date Time Pulse Ox 92 02/02 1027 Pulse 91 / 1027 B/P Mean 90.0 02/02 1019 B/P 125/66 02/02 1019 Temp 36.5 02/03 800 Resp 16 02/03 800 Physical Exam Cardiac: [...] % (Auto) (14.0 - 32.0 %) 14.6 [place] % (Auto) (4.8 - 9.0 %) 9.7 H Eos % (Auto) (0.3 - 3.7 %) 0.0 L Baso % (Auto) (0.0 - 2.0 %) 0.1 Neut # (Auto) (2.0 - 7.6 x10 3/uL) 11.68 H Lymph # (Auto) (1.0 - 3.8 x10 3/uL) 2.28 [place] # (Auto) (0.1 - 0.8 x10 3/uL) [...] % (Auto) (14.0 - 32.0 %) 18.8 [place] % (Auto) (4.8 - 9.0 %) 6.9 Eos % (Auto) (0.3 - 3.7 %) 0.9 Baso % (Auto) (0.0 - 2.0 %) 0.2 Neut # (Auto) (2.0 - 7.6 x10 3/uL) 8.49 H Lymph # (Auto) (1.0 - 3.8 x10 3/uL) 2.21 [place] # (Auto) (0.1 - 0.8 x10 3/uL) [...] (0.0 - 0.1 x10 3/uL) 0. 00 Discharge Summary Discharge Summary Date of admission: [...] home Follow up in: 1 week at 0936 RPT #:[id number] END OF REPORT 2019-02-02 15:16:00-00:00 [facility] ([facility]) OB Postpart Progr Note REPORT#:[id number] REPORT STATUS: Signed DATE:02/02/19 TIME: 1516 PATIENT: REYNA EARLY UNIT #: [id number] ROOM/BED: [place] [address] : 90 AGE: 28 SEX: F ATTEND: Frank Torres MD ADM AUTHOR: Gabriel Torres MD * ALL edits or amendments must be made on the [employer] document * Subjective Subjective EGA weeks/days: 33+6 [...] 92 89 05/07 2127 95 93 05/07 3 95 89 05/07 2 96 91 05/07 2107 93 93 05/07 2102 90 96 05/07 2056 94 98 05/07 2051 93 97 05/07 2046 96 97 05/07 2042 100.0 05/07 2042 96 145/75 05/07 2041 95 96 05/07 2036 93 98 05/07 2031 98 97 05/07 2027 85.0 05/07 2027 100 125/59 05/07 2026 94 96 05/07 2021 98 97 05/07 2016 95 97 05/07 2012 88.0 05/07 2012 92 133/61 05/07 2011 98 97 05/07 2007 106 96 05/07 2001 98 97 05/07 [...] 1550 83 96 05/07 1548 80 93 / 1545 82 95 05/07 1543 68.0 / 1543 88 90/50 05/ 1542 88 91 / 1540 78 97 / 1537 97 93 / 1535 85 97 / 1531 73.0 / 1531 83 98/52 / 1530 80 97 / 1528 86 86 / 1525 86 94 02/01 1521 90 90 02/01 1520 84 98 Physical Exam Cardiac: normal [...] % (Auto) (14.0 - 32.0 %) 14.6 [place] % (Auto) (4.8 - 9.0 %) 9.7 H Eos % (Auto) (0.3 - 3.7 %) 0.0 L Baso % (Auto) (0.0 - 2.0 %) 0.1 Neut # (Auto) (2.0 - 7.6 x10 3/uL) 11.68 H Lymph # (Auto) (1.0 - 3.8 x10 3/uL) 2.28 [place] # (Auto) (0.1 - 0.8 x10 3/uL) [...] Plan discussed with: nurse at 1521 RPT #:[id number] END OF REPORT 2019-02-02 06:50:00-00:00 [facility] ([facility]) Pain Management Progress Note REPORT#:[id number] REPORT STATUS: Signed DATE:02/02/19 TIME: 0650 PATIENT: REYNA EARLY UNIT #: [id number] ROOM/BED: [place] [address] : 90 AGE: 28 SEX: F ATTEND: Frank Torres MD ADM AUTHOR: Mona Woodward MD * ALL edits or amendments must be made on the [employer] document * Subjective Comments: Pain Management Rounds: [...] 24 hour I O ending at 0700: 02/02 0700 02/01 1900 Intake Total 2375 Output Total 900 Balance 1475 Intake, Other 2375 Output, Other 900 General appearance: alert at 0650 RPT #:[id number] END OF REPORT 2019-02-02 06:37:00-00:00 [id number] [place] [address] PATIENT NAME: REYNA EARLY ADMIT MARLENE E: 02/01/19 ACCOUNT NO: [id number] ROOM NO: [facility] AGE: 28 REPORT TYPE: OPERATIVE REPORT SEX: F ADMITTING PHYSICIAN:Gabriel Torres MD ATTENDING PHYSICIAN:Gabriel Torres MD OPERATION DATE: 02/01/2019 START TIME: 13:26 p.m. PROCEDURES: Repeat low transverse secti on and bilateral tubal ligation. SURGEON: Gabriel Torres MD AIRCRAFT MAINTENANCE MANAGER: MICHELLE Sahu and Emma Quiroz, licensed neurosurgical nurse. PREOPERATIVE DIAGNOSES: 1. Single intrauterine at 33+6 [...] scalpel . Incision was extended laterally bluntly. Infant was then delivered atr aumatically. Nose and [...] a reas were reinforced with 0 Vicryl [id number] sutures. Attention was th en turned to [...] condition. Dictated By: Gabriel Torres MD WT: OP:GWILLIAN/BHAVESH/NISA Conf#: [id number]/DID#: [id number] Authenticated by Gabriel Torres MD On 01/27 12:48:08 PM Electronically Signed by Gabriel Torres MD o n 02/15/19 at 1248 PATIENT NAME: REYNA EARLY 2019-02-01 15:06:00-00:00 [facility] ([facility]) OB Delivery Note REPORT#:[id number] REPORT STATUS: Signed DATE:02/01/19 TIME: 1506 PATIENT: REYNA EARLY UNIT #: [id number] ROOM/BED: [place] [address] : 90 AGE: 28 SEX: F ATTEND: Frank Torres MD ADM AUTHOR: Gabriel Torres MD * ALL edits or amendments must be made on the el [employer]/computer document * OB Delivery Nursing Documentation Review Nursing data: EGA (weeks/days): 34.5 EGA at admit (weeks): EGA at delivery (weeks): 34 Steroids prior to arrival: Antibiotic prophylaxis given: evaluation at delivery: Delivery date A: Delivery time A: Birthweight (gm) A: 2840 Pre-delivery evaluation at delivery: cnmt, n eonatal team Admission EGA (wks/days): 33+6 [...] delivery Mother's condition: mother stable 's condition: infant to NICU Op/Inv Proc Note - Brief )(Start date: 02/01/19 )(Start time: 1326 )( Procedure(s) performed: repeat low tr ansverse c/s, bilateral tubal ligation )( Primary Surgeon: Dr Torres )( Telephone Sex Worker(s): Dr Santos Carter. LSA )( Pre-procedure diagnosis: [...] normal limits bilaterally. Condition: stable Dictation number: [id number] at 0638 RPT #:[id number] END OF REPORT 2019-02-01 14:21:00-00:00 [facility]esthesia Evaluation REPORT#:[id number] REPORT STATUS: Signed DATE:02/01/19 TIME: 1421 PATIENT: REYNA EARLY UNIT #: [id number] ROOM/BED: [place] [address] : 90 AGE: 28 SEX: F ATTEND: [...] F low FiO2 Mean Ox Delivery Rate 05/ 0855 78.0 05/07 0855 82 118/54 05/07 0745 114.0 05/07 [...] 2123 117.0 05/06 2123 103 152/101 05/06 2053 94.0 05/06 2053 97 137/71 05/06 2023 101.0 05/06 2023 108 126/87 05/06 1923 85.0 05/06 1923 90 131/59 05/06 1903 36.8 05/06 1903 94.0 05/06 1903 98 138/65 05/06 1851 112.0 05/06 1851 118 133/101 05/06 1737 96.0 05/06 1737 103 160/67 05/06 1724 104.0 05/06 1724 95 154/68 05/06 1722 108.0 05/06 1722 99 161/76 05/06 1710 97.0 05/06 1710 100 152/74 05/06 1636 104.0 05/06 1636 94 137/82 05/06 1631 36.7 19 Respiratory/Airway: respiratory system stable Pain: adequately controlled Hydration: adequate Presence of N/V: no at 1425 RPT #:[id number] END OF REPORT 2019-02-01 14:10:00-00:00 [facility] ([facility]) Pain Management Consult Note REPORT#:[id number] REPORT STATUS: Signed DATE:02/01/19 TIME: 1410 PATIENT: REYNA EARLY UNIT #: [id number] ROOM/BED: [place] [address] : 90 AGE: 28 SEX: F ATTEND: Frank Torres MD ADM AUTHOR: Beata Harper MD * ALL edits or amendments must be made on the el [employer]/computer document * History of Present Illness Primary [...] Anesthesiology department will follow. at 1411 RPT #:[id number] END OF REPORT 2019-02-01 09:44:00-00:00 [facility] Consultation Note - Brief REPORT#:[id number] REPORT STATUS: Signed DATE:02/01/19 TIME: 943 PATIENT: REYNA EARLY UNIT #: [id number] ROOM/BED: [facility] : 90 AGE: 28 SEX: F ATTEND: Frank Torres MD ADM AUTHOR: Gurdeep Casey MD * ALL edits or amendments must be made on the [employer] document * History - Adult longitudinal Allergies: Coded Allergies: No Known Allergies (02/01/19) Attestations Midlevel/Physician Attestation Physician attestation: Please see chart for copy of consult. at 0945 RPT #:[id number] END OF REPORT 2019-02-01 08:29:00-00:00 [facility] ([facility]) OB Admission / H P REPORT#:[id number] REPORT STATUS: Signed DATE:02/01/19 TIME: 828 PATIENT: REYNA EARLY UNIT #: [id number] ROOM/BED: [place] [address] : 90 AGE: 28 SEX: F ATTEND: Frank Torres MD ADM AUTHOR: Gabriel Torres MD * ALL edits or amendments must be made on the [employer] document * OB Admission H P Hx Allergies Coded Allergies: No Known Allergies (02/01/19) Objective General VS: Last Documented: Result Date Time B/P Mean 78.0 02/01 0855 B/P 118/54 02/01 0855 Pulse 82 / 0855 Temp 37.0 01/31 2302 Resp 19 [...] % (Auto) (14.0 - 32.0 %) 18.8 [place] % (Auto) (4.8 - 9.0 %) 6.9 Eos % (Auto) (0.3 - 3.7 %) 0.9 Baso % (Auto) (0.0 - 2.0 %) 0.2 Neut # (Auto) (2.0 - 7.6 x10 3/uL) 8.49 H Lymph # (Auto) (1.0 - 3.8 x10 3/uL) 2.21 [place] # (Auto) (0.1 - 0.8 x10 3/uL) [...] - 0.1 x10 3/uL) 0.0 0 05/06 1545 Urines Urine Color (YEL/STRAW) YELLOW Urine Appearance (CLEAR) SL CLOUDY Urine pH (5.0 - 7.0) 7.0 Ur Specific [place] (1.005 - 1.030) 1.019 Urine Protein (NEGATIVE) [...] 03/16/19 @ 33+6 dated by 11+2 week sono on sent from [facility] office for admission for PIH ev [...] to labor and delivery Delivery recommended by MFM Steroids NICU consult NPO Ancef 3g at 1505 RPT #:[id number] END OF REPORT 2019-02-01 07:55:00-00:00 [facility] ([facility]) MFM Consultation Note REPORT#:[id number] REPORT STATUS: Signed DATE:02/01/19 TIME: 0755 PATIENT: REYNA EARLY UNIT #: [id number] ROOM/BED: [place] [address] : 90 AGE: 28 SEX: F ATTEND: Frank Torres MD ADM AUTHOR: Santos Carlson MD * ALL edits or amendments must be made on the [employer]/computer document * History Past History Allergies: Coded [...] % (Auto) (14.0 - 32.0 %) 18.8 [place] % (Auto) (4.8 - 9.0 %) 6.9 Eos % (Auto) (0.3 - 3.7 %) 0.9 Baso % (Auto) (0.0 - 2.0 %) 0.2 Neut # (Auto) (2.0 - 7.6 x10 3/uL) 8.49 H Lymph # (Auto) (1.0 - 3.8 x10 3/uL) 2.21 [place] # (Auto) (0.1 - 0.8 x10 3/uL) [...] pH (5.0 - 7.0) 7.0 Ur Specific [place] (1.005 - 1.030) 1.019 Urine Protein (NEGATIVE) [...] Santos Carlson MD on at 0800 RPT #:[id number] END OF REPORT 2019-01-26 23:02:00-00:00 [facility] ([facility]) REJI Evaluation Note REPORT#:[id number] REPORT STATUS: Signed DATE:01/26/19 TIME: 2301 PATIENT: REYNA EARLY UNIT #: [id number] ROOM/BED: [place] [address] : 90 AGE: 28 SEX: F ATTEND: Lidya Early MD ADM DT: AUTHOR: Shonna Early MD * ALL edits or amendments must be made on the [employer]/computer document * REJI History Chief complaint: uterine [...] B/P 136/63 01/27 2232 Temp 97.7 01/26 2232 Vital Signs Date Temp Pulse Resp B/P B/P Mean Pulse Ox FiO2 01/26 97.7 118-136/58-63 Physical Exam Neuro: Exam: [...] % (Auto) (14.0 - 32.0 %) 19.8 [place] % (Auto) (4.8 - 9.0 %) 7.9 Eos % (Auto) (0.3 - 3.7 %) 1.0 Baso % (Auto) (0.0 - 2.0 %) 0.2 Neut # (Auto) (2.0 - 7.6 x10 3/uL) 8.65 H Lymph # (Auto) (1.0 - 3.8 x10 3/uL) 2.44 [place] # (Auto) (0.1 - 0.8 x10 3/uL) [...] (0.0 - 0.1 x10 3/uL) 0. 00 Other Body Source Membrane Rupture (NEGATIVE) NEGATIVE Toxicology Urine Opiates Screen (NEGATIVE) NEGATIVE Urine Barbiturates (NEGATIVE) POSITIVE H Ur Phencyclidine Scrn (NEGATIVE) NEGATIVE Ur Amphetamines Screen (NEGATIVE) NEGATIVE U Benzodiazepines Scrn (NEGATIVE) NEGATIVE Urine Cocaine Screen (NEGATIVE) NEGATIVE Urine Cannabinoids (NEGATIVE) NEGATIVE Urines Urine Color (YEL/STRAW) YELLOW Urine Appearance (CLEAR) SL CLOUDY Urine pH (5.0 - 7.0) 7.0 Ur Specific [place] (1.005 - 1.030) 1.015 Urine Protein (NEGATIVE) [...] collaborat alisson RDZ, nurse at 0018 RPT #:[id number] END OF REPORT 2019-01-20 13:21:00-00:00 [facility] ([facility]) OB Triage Visit REPORT#:[id number] REPORT STATUS: Signed DATE:01/20/19 TIME: 1321 PATIENT: REYNA EARLY UNIT #: [id number] ROOM/BED: [place] [address] : 90 AGE: 28 SEX: F ATTEND: Frank Torres MD ADM DT: AUTHOR: Gabriel Torres MD * ALL edits or amendments must be made on the el [employer]/computer document * History Past history Allergies Coded Allergies: No Known Allergies (12/15/18) Diagnosis, Assessment Plan Diagnosis, Assessment Plan Free text A P: 28 yr old p2113 LMP: unk EDC: 03/16/19 @ 32+1 dated by 11+2 week sono on sent by [facility] for pre-eclam psia eval secondary to [...] rhogam at 29 weeks [facility] Delivery plan: [...] Plan: f/up Labs Dexamethasone at 1324 RPT #:[id number] END OF REPORT 2019-01-08 10:33:00-00:00 [facility] ([facility]) OB Disch Undelivered REPORT#:[id number] REPORT STATUS: Signed DATE:01/08/19 TIME: 1033 PATIENT: REYNA EARLY UNIT #: [id number] ROOM/BED: [place] [address] : 90 AGE: 28 SEX: F ATTEND: Frank Torres MD ADM AUTHOR: Gabriel Torres MD * ALL edits or amendments must be made on the [employer] document * Subjective Subjective Admission EGA (wks/days): [...] stable Discharge to: home Follow up with: general administrator Follow up in: 2 weeks at 1042 RPT #:[id number] END OF REPORT 2019-01-08 09:36:00-00:00 [facility] Consultation Note REPORT#:[id number] REPORT STATUS: Signed DATE:01/08/19 TIME: 935 PATIENT: REYNA EARLY UNIT #: [id number] ROOM/BED: [place] [address] : 90 AGE: 28 SEX: F ATTEND: Frank Torres MD ADM AUTHOR: Santos Carlson MD * ALL edits or amendments must be made on the [employer]/computer document * History Past History Allergies: Coded [...] 2.20 L 2.60 L Laboratory Tests 01/08 01/07 0510 1540 Hematology WBC (4.5 - 11.0 [...] (Auto) (14.0 - 32.0 %) 21[address] [place] % (Auto) (4.8 - 9.0 %) 9.4 H 7.9 Eos % (Auto) (0.3 - 3.7 %) 1.2 1.0 Baso % (Auto) (0.0 - 2.0 %) 0.2 0.2 Neut # (Auto) (2.0 - 7.6 x10 3/uL) 6.31 8.23 H Lymph # (Auto) (1.0 - 3.8 x10 3/uL) 2.[address] 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) OB Admission / H P REPORT#:[id number] REPORT STATUS: Signed DATE:01/08/19 TIME: 924 PATIENT: REYNA EARLY UNIT #: [id number] ROOM/BED: [place] [address] : 90 AGE: 28 SEX: F ATTEND: [...] Ox FiO2 01/07-01/08 36.7-36.8 85-97 18 113-146/54-76 78 .0-100.0 Physical Exam HEENT: normocephalic w/o injury Cardiac: [...] (Auto) (14.0 - 32.0 %) 21[address] [place] % (Auto) (4.8 - 9.0 %) 9.4 H 7.9 Eos % (Auto) (0.3 - 3.7 %) 1.2 1.0 Baso % (Auto) (0.0 - 2.0 %) 0.2 0.2 Neut # (Auto) (2.0 - 7.6 x10 3/uL) 6.31 8.23 H Lymph # (Auto) (1.0 - 3.8 x10 3/uL) 2.[address] [place] # (Auto) (0.1 - 0.8 x10 3/uL) [...] Serology Hep Bs Antigen (NonReactive INDEX) NON REACTIV E HIV 1 2 Antibody (NONREACTIVE INDEX) NONREACTIV E Urines Urine Color (YEL/STRAW) STRAW YELLOW Urine Appearance (CLEAR) SL CLOUDY CLEAR Urine pH (5.0 - 7.0) 8.0 H 6.0 Ur Specific [place] (1.005 - 1.030) 1.009 1.01 6 Urine Protein (NEGATIVE) NEGATIVE NEGATIVE Urine Glucose [...] old p2113 LMP: unk EDC: 03/16/19 @ 30+3 dated by 11+2 week [...] 30+3 weeks GA with above Issues. Hewitt saminimerritt Plan: admit to labor and delivery for H eval per [facility] PI labs and repeat at 1031 RPT #:[id number] END OF REPORT 2018-12-23 18:21:00-00:00 [facility]) OB Disch Undelivered REPORT#:[id number] REPORT STATUS: Signed DATE:12/23/18 TIME: 1820 PATIENT: REYNA EARLY UNIT #: [id number] ROOM/BED: [place] [address] : 90 AGE: 28 SEX: F ATTEND: Frank Torres MD ADM AUTHOR: Gabriel Torres MD * ALL edits or amendments must be made on the el [employer]/computer document * Subjective Subjective Admission EGA (wks/days): [...] stable Discharge to: home Follow up with: general administrator Follow up in: 2 weeks at 1831 RPT #:[id number] END OF REPORT 2018-12-15 10:53:00-00:00 [facility] ([facility] EMERGENCY PROVIDER REPORT REPORT#:[id number] REPORT STATUS: Signed DATE:12/15/18 TIME: 1053 PATIENT: REYNA EARLY UNIT #: [id number] ROOM/BED: AGE: 28 SEX: F PCP PHYS: Gabriel Torres MD SERVICE AUTHOR: Shanice Rhodes DO * ALL edits or amendments must be made on the el [employer]/computer document * Shanice Rhodes. 12/15/18 1053: HPI-URI/Cough/Cold [...] pH (5.0 - 7.0) 6.0 Ur Specific [place] (1.005 - 1.030) 1.017 Urine Protein (NEGATIVE) [...] 100 / 1100 Resp 20 12/15 1100 All vital signs available at the time of this en try have been reviewed. Supervising Physician Note MidLv/Doc Saw Pt 2 I have personally interviewed and examined the p atient. All charts, labs, and imaging studies were reviewe d. I agree with this PA/chair trimmer findings, exam and plan. Scribe Statement Mary [...] symptoms should prompt an immediate return [facility] or the closest emergency department or a [...] Wright on 11/27 10/16 at 1000 RPT #:[id number] END OF REPORT 2018-12-12 21:12:00-00:00 [facility] ([facility]) EMERGENCY PROVIDER REPORT REPORT#:[id number] REPORT STATUS: Signed DATE:12/12/18 TIME: 2111 PATIENT: REYNA EARLY UNIT #: [id number] ROOM/BED: AGE: 28 SEX: F PCP PHYS: Gabriel Torres MD SERVICE AUTHOR: Zain Harris MD * ALL edits or amendments must be made on the [employer]/computer document * UIT-Hcs-Daey Illness General Confirmed Patient Yes Initial Greet Date/Time 12/12/182053 PCP no PCP Dr. 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 She states [...] 200 MG X1ED STA 12/12 2122 DC 12/12 PO 12/12 Differential Diagnosis Differential Diagnosis Allergic [...] on 12/12/18 at 2343 at 2202 RPT #:[id number] END OF REPORT 2018-11-26 15:52:00-00:00 [facility] Consultation Note REPORT#:[id number] REPORT STATUS: Signed DATE:11/26/18 TIME: 1552 PATIENT: REYNA EARLY UNIT #: [id number] ROOM/BED: [place] [address] : 90 AGE: 28 SEX: F ATTEND: Frank Torres MD ADM AUTHOR: Santos Carlson MD * ALL edits or amendments must be made on the [employer]/computer document * History Past History Allergies: Coded Allergies: No Known Allergies (11/10/18) Objective Physical Exam General appearance: alert Results Findings/Data: Laboratory Tests 11/26 1500 Urines Urine Color (YEL/STRAW) YELLOW Urine Appearance (CLEAR) SL CLOUDY Urine pH (5.0 - 7.0) 8.0 H Ur Specific [place] (1.005 - 1.030) 1.012 Urine Protein (NEGATIVE) [...] maternal habitus, nl FHR, post. placenta, EFW 0mn63jg (809g, 87%ile), nl A FI 19.0 A/P [...] Santos Carlson MD on at 1609 RPT #:[id number] END OF REPORT 2018-11-25 18:15:00-00:00 [facility] ([facility]) OB Admission / H P REPORT#:[id number] REPORT STATUS: Signed DATE:11/25/18 TIME: 1814 PATIENT: REYNA EARLY UNIT #: [id number] ROOM/BED: [facility] : 90 AGE: 28 SEX: F ATTEND: Frank Torres MD ADM AUTHOR: Gabriel Torres MD * ALL edits or amendments must be made on the [employer]/computer document * OB Admission H P Hx Allergies Coded Allergies: No Known Allergies (12/15/18) Objective Physical Exam Uterine activity: Monitor: toco Intensity: moderate Diagnosis, Assessment Plan Diagnosis, Assessment Plan Free Text Lily P: 28 yr old p2113 LMP: unk EDC: 03/16/19 @ 24+1 dated by 11+2 week sono [facility] of right back pain x [...] sono home if improvement at 1820 RPT #:[id number] END OF REPORT 2018-11-25 07:25:00-00:00 [facility] ([facility]) OB Triage Visit REPORT#:[id number] REPORT STATUS: Signed DATE:11/25/18 TIME: 724 PATIENT: REYNA EARLY UNIT #: [id number] ROOM/BED: [place] [address] : [birth year] AGE: 28 SEX: F ATTEND: Kyle Schultz MD ADM DT: AUTHOR: La Nena Dong MD * ALL edits or amendments must be made on the el [email or web address]/computer document * Subjective Subjective Patient reports: abdominal [...] Mean 86.0 11/25 0546 B/P 123/60 11/25 0546 Pulse 71 11/25 645 Physical Exam: External [...] Attestation needed: not applicable at 0818 RPT #:[id number] END OF REPORT 2018-11-10 18:44:00-00:00 [facility] EMERGENCY PROVIDER REPORT REPORT#:[id number] REPORT STATUS: Signed DATE:11/10/18 TIME: 1843 PATIENT: REYNA EARLY UNIT #: [id number] ROOM/BED: AGE: 28 SEX: F PCP PHYS: Gabriel Torres MD SERVICE AUTHOR: Violeta Grijalva DO * ALL edits or amendments must be made on the el [employer]/computer document * HPI-Chest Pain Under 40 General Confirmed Patient Yes Initial Greet Date/Time 11/10/18 8745 Presentation Chief Complaint Shortness of breath Hx [...] 169/108 11/10 172 B/P Mean 128 11/10 1728 O2 Delivery Room air 11/10 1728 Temp 36.7 11/10 1728 Pulse 108 11/10 172 Resp 24 11/10 1728 Last Documented: Result Date Time Pulse Ox 100 11/10 2107 B/P 150/83 11/10 2107 B/P Mean 105 11/10 2107 O2 Delivery Room air 11/10 2107 Temp 37.1 11/10 2107 Pulse 100 11/10 2107 Resp 16 11/10 2107 Review of Vital Signs Reviewed Focused PE General/Const General/Const Awake, Alert, Well developed, [employer] Controls Operator perative Text/Dict Notes Gravid uterus. Appearance/Presentation Obese. [...] Diagnostics Lab Results Interpretation Results Laboratory Tests 11/10/181809: [Embedded Image Not Available] Laboratory Tests: 11/10 1810 Chemistry Sodium (134 - 147 mEq/L) [...] % (Auto) (14.0 - 32.0 %) 14.3 [place] % (Auto) (4.8 - 9.0 %) 9.4 H Eos % (Auto) (0.3 - 3.7 %) 1.0 Baso % (Auto) (0.0 - 2.0 %) 0.3 Neut # (Auto) (2.0 - 7.6 x10 3/uL) 6.88 Lymph # (Auto) (1.0 - 3.8 x10 3/uL) 1.34 [place] # (Auto) (0.1 - 0.8 x10 3/uL) [...] pH (5.0 - 7.0) 7.0 Ur Specific [place] (1.005 - 1.030) 1.013 Urine Protein (NEGATIVE) [...] Recent Impressions: ULTRASOUND - US LTD 11/10 181 Report Impression - Status: SIGNED Entered: 11/10/20181903 [...] D Notes ULTRASOUND - US LTD 11/10 181 Report Impression - Status: SIGNED Entered: 11/10/20181903 [...] Labetalol HCl 20 MG X1ED STA 11/10 1739 DC IV 11/10 1740 Consultation Consultation Referral/Consult Name Gabriel Torres MD Globe Changer Called [employer]LEMENT[employer] TEACHER Requested Call Time 2029 Requested Call Date 11/10/18 Call Returned Call returned Call Returned Time 2029 Call Returned Date 11/10/18 Globe Changer Will see in office, Recommended to p rescribe labetalol 200mg BID Portions of this section were scribed by Rosanne Lindsay on 11/10/18 at 1850 Portions of this section were scribed by Mary Villegas on 11/10/18 at 203 Patient Discharge Departure Vital Signs/Condition Vital Signs First Documented: Result Date Time Pulse Ox 98 11/10 1729 B/P 169/108 11/10 1729 B/P Mean 128 11/10 1729 O2 Delivery Room air 11/10 1728 Temp 36.7 11/10 1728 Pulse 108 11/10 1729 Resp 24 11/10 1729 Last Documented: Result Date Time Pulse Ox [...] [ ]. Signed By: Mary Villegas, 11/10/18 1920 Provider Scribed Statement I personally performed the [...] by Violeta Grijalva DO on at 0539 [facility] #:[id number] END OF REPORT
[2023-06-15] MEDS ORDERED: MORPHINE 4 MG/ML SYR ONE ×2 (04:55→07:18)
[2023-06-15] MEDS ORDERED: KETOROLAC 30 MG/ML INJ ONE (04:56)
[2023-06-15] MEDS ORDERED: DICYCLOMINE HCL 20 MG/2 ML AMP IM ONE (04:56)
[2023-06-15] MEDS ORDERED: ONDANSETRON 4 MG/2 ML VIAL ONE (04:56)
[2023-06-15] MEDS ORDERED: FAMOTIDINE 20 MG/2 ML VIAL IV ONE (04:56)
[2023-06-15] MEDS ORDERED: NA CHLORIDE 0.9% 1,000 ML ONE (04:56)
[2023-06-15 05:33] LABS: Urine Bacteria <20 /HPF (<20); Urine Bilirubin NEGATIVE (Negative); Urine Blood Negative (Negative); Urine Clarity Turbid (Clear); Urine Color Light-Yellow (Yellow); Urine Glucose NEGATIVE (Negative); Urine Protein NEGATIVE (Negative); Urine RBC None Seen /HPF (None Seen); Urine Urobilinogen Normal (Normal)
[2023-06-15 05:50] LABS: Absolute Lymphocytes (CBC) 2.4 K/uL (0.7-4.9); Hematocrit 38.3 % (36.0-45.0); Lymphocytes % 23.6 % (15.3-44.8); MCV 91.5 fL (80-100); Platelets 296 thou/uL (152-406); RBC Red Blood Cell Count 4.19 M/uL (3.86-4.86)
[2023-06-15 06:02] LABS: Albumin 3.3 g/dL (3.4-5.0); Bilirubin Total 0.2 mg/dL (0.2-1.0); Protein, Total 6.8 g/dL (6.4-8.2)
--- NOTE | 2023-06-15 07:10 | ER ---
Nurse's Notes [facility] Name: Qasim Resendez Age: 32 yrs Sex: Female : 1990 Arrival Date: 06/15/2023 Time: 04:19 Bed 13 Private MD: Diagnosis: Other cholelithiasis without obstruction;Upper abdominal pain, unspecified Presentation: 06/15 04:39 Chief complaint: Patient states: upper abdominal pain of 8 that radiates to back with pf1 vomiting x 4 episodes within the past 45 minutes, patient stated the pain woke her up. Patient stated was diagnosed with gallstones in February 2023. Patient stated has an appointment with Dr. Dennis on Thursday for consult. 04:39 Method Of Arrival: Ambulatory pf1 04:39 Coronavirus screen: Vaccine status: Patient reports receiving the 1st dose of the Covid pf1 vaccine. [employer] Client denies travel out of the [place] in the last 14 days. At this time, the client does not indicate any symptoms associated with coronavirus-19. Ebola Screen: Patient negative for fever greater than or equal to 101.5 degrees Fahrenheit, and additional compatible Ebola Virus Disease symptoms. Initial Sepsis Screen: Does the patient meet any 2 criteria? No. Patient's initial sepsis screen is negative. Does the patient have a suspected source of infection? No. Patient's initial sepsis screen is negative. Risk Assessment: Do you want to hurt yourself or someone else? Patient reports no desire to harm self or others. 04:39 Acuity: ELÍAS 3 pf1 Triage Assessment: 04:40 General: Appears distressed, uncomfortable, obese, Behavior is cooperative, appropriate bp for age, anxious. Pain: Complains of pain in abdomen. GI: Abdomen is non-distended, obese, Reports upper abdominal pain. Historical: - Allergies: 05:42 No Known Allergies; pf1 - PMHx: 05:42 Kidney stone; gallstones; pf1 - PSHx: 05:42 "kidney stone surgery"; section; Ligation of fallopian tube; Tonsillectomy; pf1 - Immunization history:: Adult Immunizations up to date, Client reports receiving the 1st dose of the Covid vaccine, [employer] Last tetanus immunization: < 5 years ago Flu vaccine is not up to date. - Family history:: not pertinent. - Social history:: Smoking status: Patient denies any tobacco usage or history of. Patient/guardian denies using alcohol, street drugs. Screenin:59 [facility] ED Fall Risk Assessment (Adult) History of falling in the last 3 months, bp including since admission No falls in past 3 months (0 pts). Abuse screen: Denies threats or abuse. Denies injuries from another. Nutritional screening: No deficits noted. Tuberculosis screening: No symptoms or risk factors identified. Assessment: 04:40 General: SEE TRIAGE NOTE. bp 05:59 Reassessment: No changes from previously documented assessment. Patient is alert, bp oriented x 3, equal unlabored respirations, skin warm/dry/pink. 07:15 General: Appears in no apparent distress. comfortable, Behavior is calm, cooperative, kc6 appropriate for age. Pain: Complains of pain in right upper quadrant. Neuro: Level of Consciousness is awake, alert, obeys commands, Oriented to person, place, time, situation, Appropriate for age. Cardiovascular: Capillary refill < 3 seconds. Respiratory: Airway is patent Trachea midline Respiratory effort is even, unlabored, Respiratory pattern is regular, symmetrical. GI: Abdomen is round non-distended, Bowel sounds present X 4 quads. Abd is soft X 4 quads Abdomen is tender to palpation in right upper quadrant Reports nausea, vomiting. : No signs and/or symptoms were reported regarding the genitourinary system. EENT: No signs and/or symptoms were reported regarding the EENT system. Derm: No signs and/or symptoms reported regarding the dermatologic system. Skin is intact, is healthy with good turgor, Skin is pink, warm \\T\\ dry. Musculoskeletal: No signs and/or symptoms reported regarding the musculoskeletal system. Circulation, motion, and sensation intact. Capillary refill < 3 seconds, Range of motion: intact in all extremities. Vital Signs: 04:39 BP 138 / 83; Pulse 70; Resp 18; Temp 98.2; Pulse Ox 99% on R/A; Weight 117.93 kg; pf1 Height 5 ft. 4 in. ; Pain 8/10; 05:59 BP 112 / 67; Pulse 50; Resp 16; Pulse Ox 97% ; bp 07:16 BP 122 / 84; Pulse 47; Resp 16 S; Pulse Ox 95% on R/A; kc6 04:39 Body Mass Index 44.63 (117.93 kg, 162.56 cm) pf1 04:39 Pain Scale: Adult pf1 ED Course: 04:22 Patient arrived in ED. jj6 04:36 Roger Osborne MD is Attending Physician. sp4 05:02 Enrico Head, RN is Primary Nurse. bp 05:04 Inserted saline lock: 20 gauge in right antecubital area, using aseptic technique. bp Blood collected. 05:16 CBC with Diff Sent. pf1 05:16 CMP Sent. pf1 05:16 Lipase Sent. pf1 05:36 US Abdomen Limited In Process Unspecified. EDMS 05:44 Triage completed. pf1 05:59 Patient has correct armband on for positive identification. Bed in low position. Call bp light in reach. Side rails up X2. 06:57 CT Abd/Pelvis - IV Contrast Only In Process Unspecified. EDMS 07:00 Report received from Enrico Head RN. kc6 07:09 Brennan Dennis MD is Referral Physician. sp4 07:34 No provider procedures requiring assistance completed. IV discontinued, intact, kc6 bleeding controlled, No redness/swelling at site. Pressure dressing applied. Administered Medications: 05:03 Drug: NS 0.9% IV 1000 ml IV at 1 bolus Per protocol; 1000 mL bolus Route: IV; Rate: 1 bp bolus; Site: right antecubital; 07:33 Follow up: Response: No adverse reaction; IV Status: Completed infusion; IV Intake: kc6 1000ml 05:03 Drug: Ondansetron IVP 4 mg IVP once; over 2 minutes Route: IVP; Site: right antecubital;bp 05:03 Drug: Famotidine IVP 20 mg IVP once; dilute with 10 mL 0.9% NaCl; give over 2 minutes bp Route: IVP; Site: right antecubital; 05:04 Drug: Ketorolac IVP 30 mg IVP once Route: IVP; Site: right antecubital; bp 05:04 Drug: morphine IVP or IV 4 mg IVP once over 4 mins Route: IVP; Infused Over: 4 mins; bp Site: right antecubital; 05:04 Drug: Dicyclomine IM 20 mg IM once Route: IM; Site: right deltoid; bp 07:14 Drug: morphine IVP or IV 4 mg IVP once over 4 mins Route: IVP; Infused Over: 4 mins; kc6 Site: right antecubital; 07:33 Follow up: Response: No adverse reaction; Pain is decreased; RASS: Alert and Calm (0) kc6 07:14 Drug: metoCLOPramide IVP 10 mg IVP once; over 1 to 2 minutes Route: IVP; Site: right kc6 antecubital; 07:33 Follow up: Response: No adverse reaction; Nausea is decreased; Vomiting decreased kc6 Medication: 07:34 VIS not applicable for this client. kc6 Intake: 07:33 IV: 1000ml; Total: 1000ml. kc6 Outcome: 07:10 Discharge ordered by sp4 07:34 Discharged to home ambulatory, kc6 07:34 Condition: improved 07:34 Discharge instructions given to patient, Instructed on discharge instructions, follow up and referral plans. medication usage, Demonstrated understanding of instructions, follow-up care, medications, Prescriptions given X 3, 07:34 Patient left the ED. kc6 Signatures: Dispatcher [employer] EDMS Enrico Head, RN RN June Escalante6 Mahi Espinoza RN RN kc6 Jazlyn Magdaleno RN RN pf1 Roger Osborne MD MD sp4
--- NOTE | 2023-06-15 07:10 | EDPHYS ---
Physician Documentation [facility] Name: Qasim Resendez Age: 32 yrs Sex: Female : 1990 Arrival Date: 06/15/2023 Time: 04:19 Bed 13 Private MD: ED Physician Roger Osborne HPI: 06/15 04:36 This 32 yrs old Black Female presents to ER via Unassigned with complaints of Abdominal sp4 Pain, Nausea/Vomiting, Low Back Pain. 04:41 32-year-old female with history of gallstones presents with a cute onset of right upper sp4 quadrant abdominal pain and 4 episodes of vomiting. Pain is very similar to prior gallstone related pain and also biliary colic. Patient is scheduled to see surgeon in office for cholecystectomy but has not seen one yet. Patient has history of bilateral tubal ligation 4 years ago, . Historical: - Allergies: 05:42 No Known Allergies; pf1 - PMHx: 05:42 Kidney stone; gallstones; pf1 - PSHx: 05:42 "kidney stone surgery"; section; Ligation of fallopian tube; Tonsillectomy; pf1 - Immunization history:: Adult Immunizations up to date, Client reports receiving the 1st dose of the Covid vaccine, [employer] Last tetanus immunization: < 5 years ago Flu vaccine is not up to date. - Family history:: not pertinent. - Social history:: Smoking status: Patient denies any tobacco usage or history of. Patient/guardian denies using alcohol, street drugs. ROS: 04:41 Constitutional: Negative for fever, chills, and weight loss, Abdomen/GI: Positive for sp4 right upper quadrant abdominal pain nausea vomiting. Negative for diarrhea constipation 04:41 All other systems are negative, Exam: 04:41 Constitutional: This is a well developed, well nourished patient who is awake, alert, sp4 and in no acute distress. Head/Face: Normocephalic, atraumatic. Eyes: Pupils equal round and reactive to light, extra-ocular motions intact. Lids and lashes normal. Conjunctiva and sclera are not injected. Cornea within normal limits. Periorbital areas with no swelling, redness, or edema. ENT: Nares patent. No nasal discharge, no septal abnormalities noted. Tympanic membranes are normal and external auditory canals are clear. Oropharynx with no redness, swelling, or masses, exudates, or evidence of obstruction, uvula midline. Mucous membranes moist. Neck: Trachea midline, no thyromegaly or masses palpated, and no cervical lymphadenopathy. Supple, full range of motion without nuchal rigidity, or vertebral point tenderness. Chest/axilla: Normal chest wall appearance and motion. Nontender with no deformity. No lesions are appreciated. Cardiovascular: Regular rate and rhythm with a normal S1 and S2. No gallops, murmurs, or rubs. Normal PMI, no JVD. No pulse deficits. Respiratory: Lungs have equal breath sounds bilaterally, clear to auscultation and percussion. No rales, rhonchi or wheezes noted. No increased work of breathing, no retractions or nasal flaring. Abdomen/GI: Soft, non-tender, with normal bowel sounds. No distension or tympany. No guarding or rebound. No evidence of tenderness throughout. Back: No spinal tenderness. No costovertebral tenderness. Skin: Warm, dry with normal turgor. Normal color with no rashes, no lesions, and no evidence of cellulitis. MS/ Extremity: Pulses equal, no cyanosis. Neurovascular intact. Full, normal range of motion. Neuro: Awake and alert, GCS 15, oriented to person, place, time, and situation. Cranial nerves II-XII grossly intact. Motor strength 5/5 in all extremities. Sensory grossly intact. Psych: Awake, alert, with orientation to person, place and time. Behavior, mood, and affect are within normal limits Vital Signs: 04:39 BP 138 / 83; Pulse 70; Resp 18; Temp 98.2; Pulse Ox 99% on R/A; Weight 117.93 kg; pf1 Height 5 ft. 4 in. ; Pain 8/10; 05:59 BP 112 / 67; Pulse 50; Resp 16; Pulse Ox 97% ; bp 07:16 BP 122 / 84; Pulse 47; Resp 16 S; Pulse Ox 95% on R/A; kc6 04:39 Body Mass Index 44.63 (117.93 kg, 162.56 cm) pf1 04:39 Pain Scale: Adult pf1 MDM: 05:05 Patient medically screened. sp4 05:52 Differential diagnosis: gastritis, cholecystitis, pancreatitis, appendicitis, sp4 diverticulitis, viral gastroenteritis, gastroenteritis. Data reviewed: vital signs, nurses notes, old medical records, lab test result(s), radiologic studies, CT scan, ultrasound. ED course: US RUQ - FINDINGS: Liver: The visualized liver has normal contour and increased echogenicity. . The common bile duct measures 0.6 cm. Gallbladder: Shadowing echogenic structures in the gallbladder lumen. Gallbladder wall thickness of 0.3 cm. Sonographic Silva's sign not provided. IMPRESSION: 1. Cholelithiasis without other definite ultrasound evidence of acute cholecystitis. 2. Hepatic steatosis. . 07:05 ED course: CT reveals extensive cholelithiasis without significant cholecystitis. There sp4 is midline hernia that is fat-containing. No sign of emergent abdominal or pelvic anomaly. . 07:12 ED course: Patient will be advised to keep her appointment with general surgery for sp4 consultation for cholecystectomy. . 06/15 04:37 Order name: CBC with Diff; Complete Time: 05:55 [facility] 06/15 04:37 Order name: CMP; Complete Time: 06:35 [facility] 06/15 04:37 Order name: Lipase; Complete Time: 06:35 sp4 06/15 04:37 Order name: Test, Urine; Complete Time: 05:41 4 06/15 04:37 Order name: Urinalysis w/ reflexes; Complete Time: 05:41 4 06/15 04:40 Order name: CT Abd/Pelvis - IV Contrast Only 4 06/15 04:41 Order name: US Abdomen Limited 4 06/15 04:37 Order name: IV Saline Lock; Complete Time: 05:15 [facility] 06/15 04:37 Order name: Labs collected and sent; Complete Time: 05:15 sp4 Administered Medications: 05:03 Drug: NS 0.9% IV 1000 ml IV at 1 bolus Per protocol; 1000 mL bolus Route: IV; Rate: 1 bp bolus; Site: right antecubital; 07:33 Follow up: Response: No adverse reaction; IV Status: Completed infusion; IV Intake: kc6 1000ml 05:03 Drug: Ondansetron IVP 4 mg IVP once; over 2 minutes Route: IVP; Site: right antecubital;bp 05:03 Drug: Famotidine IVP 20 mg IVP once; dilute with 10 mL 0.9% NaCl; give over 2 minutes bp Route: IVP; Site: right antecubital; 05:04 Drug: Ketorolac IVP 30 mg IVP once Route: IVP; Site: right antecubital; bp 05:04 Drug: morphine IVP or IV 4 mg IVP once over 4 mins Route: IVP; Infused Over: 4 mins; bp Site: right antecubital; 05:04 Drug: Dicyclomine IM 20 mg IM once Route: IM; Site: right deltoid; bp 07:14 Drug: morphine IVP or IV 4 mg IVP once over 4 mins Route: IVP; Infused Over: 4 mins; kc6 Site: right antecubital; 07:33 Follow up: Response: No adverse reaction; Pain is decreased; RASS: Alert and Calm (0) kc6 07:14 Drug: metoCLOPramide IVP 10 mg IVP once; over 1 to 2 minutes Route: IVP; Site: right kc6 antecubital; 07:33 Follow up: Response: No adverse reaction; Nausea is decreased; Vomiting decreased kc6 Disposition Summary: 06/15/23 07:10 Discharge Ordered Notes: Location: Home sp4 Problem: new sp4 Symptoms: have improved sp4 Condition: Stable sp4 Diagnosis - Other cholelithiasis without obstruction sp4 - Upper abdominal pain, unspecified sp4 Followup: sp4 - With: Brennan Dennis MD - When: 2 - 3 days - Reason: Recheck today's complaints Discharge Instructions: - Discharge Summary Sheet sp4 - Biliary Colic, Adult sp4 Forms: - Patient Portal Instructions sp4 Prescriptions: - Ibuprofen 800 mg Oral Tablet - take 1 tablet by ORAL route every 8 hours As needed take with food; 30 tablet; sp4 Refills: 0, Product Selection Permitted - Tramadol 50 mg Oral Tablet - take 1 tablet by ORAL route every 8 hours as needed; 12 tablet; Refills: 0, sp4 Product Selection Permitted - promethazine 25 mg Oral Tablet - take 1 tablet by ORAL route every 6 hours As needed PRN nausea; 30 tablet; sp4 Refills: 0, Product Selection Permitted Signatures: Dispatcher [employer] EDEnrico Nice RN RN Mahi Partida RN RN kc6 Jazlyn Magdaleno RN RN pf1 Roger Osborne MD MD sp4
--- NOTE | 2023-06-15 07:12 | RAD REPORT ---
EXAM DESCRIPTION: CT - Abdomen Pelvis W Contrast - 06/15/2023 6:56 am CLINICAL HISTORY: Abdominal pain COMPARISON: March 28, 2023 TECHNIQUE: Computed axial tomography of the abdomen pelvis was obtained. 100 cc Isovue-300 was admin istered intravenously. Oral contrast was not requested which limits evaluation of bowel and appendix All CT scans are performed using dose optimization technique as appropriate and may include automated exposure control or mA/KV adjustment according to patient size. FINDINGS: The liver, spleen, pancreas, adrenal and left kidney appear unremarkable. Small nonobstructing right renal calculi There is no evidence of diverticulitis. Mild anterior subluxation of L5 on S1 with disc space narrowing, subchondral sclerosis and vacuum phe nomena. Spondylolysis L5 Ventral hernia. The herniated sac measures 9.8 centimeters. The hernia defect 2 centimeters IMPRESSION: Cholelithiasis. Small gallstone near the junction of the cystic duct and gallbladder nec k. No evidence of cholecystitis Large ventral hernia containing fat
[2023-06-15] MEDS ORDERED: METOCLOPRAMIDE 10 MG/2mL INJ ONE (07:18)
[2023-06-15 07:38] VITALS: TEMP 98.2
[2023-06-15 07:42] VITALS: BP 122/84; O2SAT 95
--- NOTE | 2023-06-15 11:49 | RAD REPORT ---
EXAM DESCRIPTION: US - Abdomen Exam Limited - 06/15/2023 5:34 am CLINICAL HISTORY: RUQ abd pain COMPARISON: None. TECHNIQUE: Real-time sonographic images of the gallbladder were obtained using a curved multihertz t ransducer. FINDINGS: Liver: The visualized liver has normal contour and increased echogenicity. . The common bi le duct measures 0.6 cm. Gallbladder: Shadowing echogenic structures in the gallbladder lumen. Gallbladder wall thickness of 0 .3 cm. Sonographic Silva's sign not provided. IMPRESSION: 1. Cholelithiasis without other definite ultrasound evidence of acute cholecystitis. 2. Hepatic steatosis. Electronically signed by: Brooks Oates 06/15/2023 5:46 AM CDT Due to temporary technical issues with the PACS/Fluency reporting system, reports are being signed by the in house radiologists without review as a courtesy to insure prompt reporting. The interpreting radiologist is fully responsible for the content of the report.
== END 2023-06-15 07:34 | disposition home or self-care (01) ==
LOC: ER 04:19
DX: K80.80 Other cholelithiasis without obstruction (principal)
CPT/HCPCS: 36415; 74177; 76705; 80053; 81001; 81025; 83690; 85025; 96361; 96372; 96374; 96375; 99284; J0500; J2405; J2765; J7030; Q9967

== ENCOUNTER 2023-07-05 04:13 | Emergency (ER) | payer SELFPAY ==
--- OUTSIDE RECORDS SUMMARY | 2023-07-05 04:19 | XMS REPORT | Continuity of Care Document ---
:1990 Author Organization [facility] t Address [address] [place] [address] [place] [id number] Care Team Providers Name Role Phone Asked, No Pcp Primary Care Physician Unavailable [email or web address] Attending Clinician Unavailable Bradly RDZ, Ron Paige Attending Clinician [phone] AAYUSH PALENCIA Attending Clinician Unavailable Eugenio RDZ, David Attending Clinician Bhargav Redd MD Attending Clinician [phone] Beltran Christine MD Attending Clinician [phone] Abimbola Lincoln MD Attending Clinician Layo RDZ, Yony Rodas Attending Clinician Regina Ruiz Attending Clinician Unavailable Isabel Craig DO Attending Clinician [phone] Nory RDZ, Rosalind Attending Clinician Brooks Boo MD Attending Clinician [phone] Brooks Toribio Attending Clinician Unavailable Edwardo RDZ, Andi Schuler Attending Clinician Torrey Javed Attending Clinician Unavailable QUENTIN BARAJAS Attending Clinician Unavailable MD KENNA LOPEZ Attending Clinician Unavailable ANDI LOPEZ Attending Clinician Unavailable DO BELTRAN SHEPHERD Attending Clinician Unavailable BELTRAN SHEPHERD Attending Clinician Unavailable KIMBERLY CARROLL Attending Clinician Unavailable DANIELA BECKER Attending Clinician Unavailable [email or web address]_S Admitting Clinician Unavailable AAYUSH PALENCIA Admitting Clinician Unavailable Physician, No Primary or Family Admitting Clinician UnavailQUENTIN Talavera Admitting Clinician Unavailable MD KENNA LOPEZ Admitting Clinician Unavailable LAYO, RATE ANALYST THUYTRAN THI Admitting Clinician Unavailable Payers Payer Name Policy Type Policy Number Effective Date Expiration Date Analy [place] - [id number] [place] [address] ([facility]) Problems Condition Condition Condition Status Onset Resolution [...] Date Clinician No Known DA Active U [facility] 7-10 Clear s 00:00: [facility] No Known DA Active U [facility] 7-10 Clear s 00:00: Willson [address] [place] [address] No Known DA Active U 2019-0 [facility]ie 1-24 Clear s 00:00: [facility] No Known DA Active U 2018-0 [facility] All[facility]ie 5-07 Clear s 00:00: [facility] No Known DA Active U 2019-0 [facility]ie 3-20 Clear s 00:00: [facility] No Known DA Active U 2018-0 [facility] Allergie 2-13 Clear s 00:00: [facility] No Known DA Active U 2016- [facility] Allergie 1-27 Clear s 00:00: [facility] No Known DA Active U 2008- [facility] Drug 3-26 [facility] 00:00: e s 00 [facility] No Known DA Active U 2008-0 [facility] Food 3-26 [facility] Allergie 00:00: e s 00 [facility] No Known DA Active U 2008- [facility] Other 3-26 [facility] Allergie 00:00: e s 00 [facility] No Known DA Active U 2008- [facility] Contrast 3-26 [facility] All[facility]: e s [facility] No Known DA Active U 2007- [facility] 2- [facility] 00:00: e [facility]ces 00 [facility] No Known DA Active U 2007- [facility] 2- [facility] e [facility]ces [facility] Family History Family Member Diagnosis Comments Start Date Stop Date Source Natural mother Cancer [facility] Natural mother Hypertension [facility] Paternal grandmother Diabetes [facility] Paternal grandmother Hypertension [facility] Paternal grandmother Stroke [facility] Natural father Hypertension [facility] Natural father Stroke [facility] Social History Social Habit Start Date Stop Date Quantity Comments Source [facility] History of tobacco Cigarette [facility] Gender identity [facility] History of Social 2023-04-02 2023-04-[address] function 00:00:00 00:00:00 Hospital Alcohol intake 2023-03-11 2023-03-11 Current [facility] 00:00:00 00:00:00 non-drinker of Hospital alcohol (finding) Tobacco use and 2022-01-02 2022-01-02 Smokeless [facility] exposure 00:00:00 00:00:00 tobacco non-user Hospital Sex Assigned At [birth year] [facility] 00:00[facility]00 00[facility]00:00 Hospital Smoking Status Start Date Stop Date Source Ex-smoker 2022-01-02 00:00:00 2022-01-02 00:00:00 [facility] Medications Ordered Filled Start Stop Current [...] hours as needed for mild pain. ibuprofen 2023-0 Yes 800mg Q8H Take 1 Meth[facility] di (ADVIL) 800 6-[address] MG tablet 00:00: (800 mg Hospi ta 00 total) by l mouth every 8 (eight) hours as needed for mild pain. ibuprofen 2023-0 Yes 800mg Q8H Take 1 Meth[facility] di (ADVIL) 800 6-[address] MG tablet 00:00: (800 mg Hospi ta 00 total) by l mouth every 8 (eight) hours as needed for mild pain. methylPREDN 3-0 2022- No follow Met hodi ISolone 03-[address] (MEDROL 00:00: 04:59 directions Hos rain DOSEPAK) 4 00 :00 l mg tablet methylPREDN 3-0 3- No follow Met hodi ISolone 03-[address] (MEDROL 00:00: 04:59 directions Hos rain DOSEPAK) 4 00 :00 l mg tablet methylPREDN 3-0 3- No follow Met hodi ISolone 03-[address] (MEDROL 00:00: 04:59 directions Hos rain DOSEPAK) 4 00 :00 l mg tablet methylPREDN 3-0 2022- No follow Met hodi ISolone 03-[address] (MEDROL 00:00: 04:59 directions Hos rain DOSEPAK) 4 00 :00 l mg tablet ibuprofen 2023-0 Yes 600mg Q8H Take 1 [facility] di (ADVIL) 600 4-[address] MG tablet 00:00: (600 mg Hospi ta 00 total) by l mouth every 8 (eight) hours as needed for mild pain. traMADoL 2023-0 Yes [id number] 50mg Q8H Take 1 Method i (ULTRAM) 50 4-05 tablet (50 st mg tablet 00:00: mg total) Hos rain 00 by mouth l every 8 (eight) hours as needed for moderate pain .acute pain. ibuprofen 2023-0 Yes 600mg Q8H Take 1 Metho di (ADVIL) 600 4-[address] MG tablet 00:00: (600 mg Hospi ta 00 total) by l mouth every 8 (eight) hours as needed for mild pain. traMADoL 2022-0 Yes [id number] 50mg Q8H Take 1 Method i (ULTRAM) [...] needed for mild pain. traMADoL 2022-0 Yes [id number] 50mg Q8H Take 1 Method i (ULTRAM) 50 4-05 tablet (50 st mg tablet 00:00: mg total) Hos rain 00 by mouth l every 8 (eight) hours as needed for moderate pain .acute pain. ibuprofen Yes 600mg Q8H Take 1 Metho di (ADVIL) 600 4-[address] MG tablet 00:00: (600 mg Hospi ta 00 total) by l mouth every 8 (eight) hours as needed for mild pain. traMADoL Yes [id number] 50mg Q8H Take 1 Method i (ULTRAM) 50 4-05 tablet (50 st mg tablet 00:00: mg total) Hos rain 00 by mouth l every 8 (eight) hours as needed for moderate pain .acute pain. amoxicillin 2022- No 1{tbl} Q.5D Take 1 M ethodi -pot 4-05 04-[address] clavulanate 00:00: 04:59 mouth 2 Ho spita (Augmentin) 00 :00 (two) l 875-125 mg times a per tablet day for 7 days. amoxicillin 2022-2022- No 1{tbl} Q.5D Take 1 M ethodi -pot 4-05 04-[address] clavulanate 00:00: 04:59 mouth 2 Ho spita (Augmentin) 00 :00 (two) l 875-125 mg times a per tablet day for 7 days. amoxicillin 2022- No 1{tbl} Q.5D Take 1 M ethodi -pot 4-05 04-[address] clavulanate 00:00: 04:59 mouth 2 Ho spita (Augmentin) 00 :00 (two) l 875-125 mg times a per tablet day for 7 days. amoxicillin 3-0 2023- No 1{tbl} Q.5D Take 1 M ethodi -pot 4- 04-[address] clavulanate 00:00: 04:59 mouth 2 Ho spita (Augmentin) 00 :00 (two) l 875-125 mg times a per tablet day for 7 days. ibuprofen 2023-0 Yes 600mg Q6H Take 1 Metho di (ADVIL) 600 3-[address] MG tablet 00:00: (600 mg Hospi ta 00 total) by l mouth every 6 (six) hours as needed for mild pain. ibuprofen 2023-0 Yes 600mg Q6H Take 1 Metho di (ADVIL) 600 3-[address] MG tablet 00:00: (600 mg Hospi ta 00 total) by l mouth every 6 (six) hours as needed for mild pain. ibuprofen 2023-0 Yes 600mg Q6H Take 1 Metho di (ADVIL) 600 3-[address] MG tablet 00:00: (600 mg Hospi ta 00 total) by l mouth every 6 (six) hours as needed for mild pain. ibuprofen 2023-0 Yes 600mg Q6H Take 1 Metho di (ADVIL) 600 3-[address] MG tablet 00:00: (600 mg Hospi ta 00 total) by l mouth every 6 (six) hours as needed for mild pain. methocarbam 3-0 2023- No 500mg Q.5D Take 1 Me thodi oL 3-02 28-[address] (ROBAXIN) 00:00: 05:59 (500 mg Hosp [facility] 500 MG 00 :00 total) by l tablet mouth 2 (two) times a day for 5 days. methocarbam 2023-0 2023- No 500mg Q.5D Take 1 Me [facility] oL 3- 03-[address] (ROBAXIN) 00:00: 05:59 (500 mg [facility]osp [facility] 500 MG 00 :00 total) by l tablet mouth 2 (two) times a day for 5 days. methocarbam 2023-0 2023- No 500mg Q.5D Take 1 Me [facility] oL 3-02 28-[address] (ROBAXIN) 00:00: 05:59 (500 mg [facility]osp [facility] 500 MG 00 :00 total) by l tablet mouth 2 (two) times a day for 5 days. methocarbam 2022- No 500mg Q.5D Take 1 Me [facility] oL 12-[address] (ROBAXIN) 00:00: 05:59 (500 mg [facility]osp [facility] 500 MG 00 :00 total) by l tablet mouth 2 (two) times a day for 5 days. predniSONE 2022- No 40mg QD Take 4 Meth janelle (DELTASONE) 12-[address] 10 mg 00:00: 05:59 (40 mg Hospita tablet 00 :00 total) by l mouth daily for 4 days. predniSONE 2022- No 40mg QD Take 4 Meth janelle (DELTASONE) 12-[address] 10 mg 00:00: 05:59 (40 mg Hospita tablet 00 :00 total) by l mouth daily for 4 days. predniSONE 2022- No 40mg QD Take 4 Meth janelle (DELTASONE) 12-[address] 10 mg 00:00: 05:59 (40 mg Hospita tablet 00 :00 total) by l mouth daily for 4 days. predniSONE 2022- No 40mg QD Take 4 Meth janelle (DELTASONE) 12-[address] 10 mg 00:00: 05:59 (40 mg Hospita tablet 00 :00 total) by l mouth daily for 4 days. ondansetron 2021-2021- No 4mg Q8H Take 1 Met hodi [...] for up to 5 days. ondansetron 2021-0 2- No 4mg Q8H Take 1 Met hodi [...] vomiting for up to 5 days. butalbital- 2021-2021- No 1{tbl} Q6H Take 1 M ethodi acetaminoph 9-26 09-[address] en-caff 00:00: 04:59 mouth Hospita (Esgic) 00 :00 every 6 l 50-325-40 (six) mg per hours as tablet needed for headaches for up to 3 days. butalbital- 2021-2021- No 1{tbl} Q6H Take 1 M ethodi acetaminoph 9-26 09-[address] en-caff 00:00: 04:59 mouth Hospita (Esgic) 00 :00 every 6 l 50-325-40 (six) mg per hours as tablet needed for headaches for up to 3 days. butalbital- 2021-0 2021- No 1{tbl} Q6H Take 1 M ethodi acetaminoph 9-26 09-[address] en-caff 00:00: 04:59 mouth Hospita (Esgic) 00 :00 every 6 l 50-325-40 (six) mg per hours as tablet needed for headaches for up to 3 days. butalbital- 2021-2- No 1{tbl} Q6H Take 1 M ethodi acetaminoph 06-23-[address] en-caff 00:00: 04:59 mouth Hospita (Esgic) 00 :00 every 6 l 50-325-40 (six) mg per hours as tablet needed for headaches for up to 3 days. butalbital- 2021-2- No 1{tbl} Q6H Take 1 M ethodi [...] for up to 30 days. ondansetron 2021-0 2022- No 4mg Q12H Take 1 Met [...] daily for 5 days. acetaminoph 2021- No [id number] 5mL Q6H Take 5 mL Methodi en [...] daily for 5 days. acetaminoph 2021- [place] [id number] 5mL Q6H Take 5 mL Method[facility] en with 03-[address] codeine 00:00: 04:59 every 6 Hospit a (acetaminop 00 :00 (six) l hen-codeine hours as ) 120-12 needed for mg/5 mL moderate solution pain or severe pain for up to 5 days .acute pain. benzonatate 2021-0 Yes 100mg Q.22002729 Take 1 Methodi (TESSALON) 03-[id number] 100 MG 00:00: 3D (100 mg Hospita capsule 00 total) by l mouth 3 (three) times a day as needed for cough. benzonatate 2022-0 Yes 100mg Q.[id number] Take 1 [facility] (TESSALON) 6-[id number] 100 MG 00:00: 3D (100 mg Hospita capsule 00 total) by l mouth 3 (three) times a day as needed for cough. benzonatate 202-0 Yes 100mg Q.[id number] Take 1 [facility] (TESSALON) 6-[id number] 100 MG 00:00: 3D (100 mg Hospita capsule 00 total) by l mouth 3 (three) times a day as needed for cough. benzonatate 2021-0 Yes 100mg Q.[id number] Take 1 [facility] (TESSALON) 6-[id number] 100 MG 00:00: 3D (100 mg Hospita capsule 00 total) by l mouth 3 (three) times a day as needed for cough. benzonatate 2021-0 Yes 100mg Q.[id number] Take 1 [facility] (TESSALON) 6-[id number] 100 MG 00:00: 3D (100 mg Hospita capsule 00 total) by l mouth 3 (three) times a day as needed for cough. benzonatate 2021-0 Yes 100mg Q.[id number] Take 1 [facility] (TESSALON) 6-[id number] 100 MG 00:00: 3D (100 mg Hospita capsule 00 total) by l mouth 3 (three) times a day as needed for cough. albuterol 2021- No 2{puff} Q4H Inhale 2 [facility] (PROAIR 03-03-[address] HFA) 90 00:00: 04:59 every 4 Hospit a mcg/actuati 00 :00 (four) l on inhaler hours as needed for wheezing or shortness of breath for up to 30 days. albuterol 2021-2021- No 2{puff} Q4H Inhale 2 [facility] (PROAIR 6 07-[address] HFA) 90 00:00: 04:59 every 4 Hospit a mcg/actuati 00 :00 (four) l on inhaler hours as needed for wheezing or shortness of breath for up to 30 days. albuterol 2022-0 2022- No 2{puff} Q4H Inhale 2 Method[facility] (PROAIR [...] tablet hours for 7 [place] [id number] 50mg Q8H Take 1 Metho di (ULTRAM) 50 2-28 03-04 tablet (50 s t mg tablet 00:00: 05:59 mg total) Ho spita 00 :00 by mouth l every 8 (eight) hours as needed for moderate pain for up to 3 [place] [id number] 50mg Q8H Take 1 Metho di (ULTRAM) 50 2-28 03-04 tablet (50 s t mg tablet 00:00: 05:59 mg total) Ho spita 00 :00 by mouth l every 8 (eight) hours as needed for moderate pain for up to 3 days .acute pain. Vital Signs Vital Name Observation Time Observation Value Comments Source Systolic blood 2023-04-02 16:00:00 114 mm[Hg] [facility] pressure Diastolic blood 2023-04-02 16:00:00 64 mm[Hg] [facility] pressure Heart rate 2023-04-02 16:00:00 57 /min [facility] Respiratory rate 2023-04-02 16:00:00 19 /min [facility] Oxygen saturation in 2023-04-02 16:00:00 98 /min [facility] Arterial blood by Pulse oximetry Body temperature 2023-04-02 13:30:00 36.78 Jerrica [facility] Body height 2023-04-02 12:42:00 162.6 cm [facility] Body weight 2023-04-02 12:42:00 111.131 kg [facility] BMI 2023-04-02 12:42:00 42.05 kg/m2 [facility] Body temperature 2023-03-11 15:18:00 36.83 Jerrica [facility] Systolic blood 2023-03-11 15:16:00 141 mm[Hg] [facility] pressure Diastolic blood 2023-03-11 15:16:00 82 mm[Hg] [facility] pressure Heart rate 2023-03-11 15:16:00 72 /min [facility] Respiratory rate 2023-03-11 15:16:00 18 /min [facility] Body height 2023-03-11 15:16:00 162.6 cm [facility] Body weight 2023-03-11 15:16:00 104 kg [facility] BMI 2023-03-11 15:16:00 39.36 kg/m2 [facility] Oxygen saturation in 2023-03-11 15:16:00 94 /min [facility] Arterial blood by Pulse oximetry Systolic blood 2022-06-24 02:34:48 139 mm[Hg] Method [facility] pressure Diastolic blood 2022-06-24 02:34:48 89 mm[Hg] [facility] Hospital pressure Heart rate 2022-06-24 02:34:48 79 /min [facility] Body temperature 2022-06-24 02:34:48 36.22 Jerrica [facility] Respiratory rate 2022-06-24 02:34:48 20 /min [facility] Oxygen saturation in 2022-06-24 02:34:48 99 /min [facility] Arterial blood by Pulse oximetry Body height 2022-06-24 00:39:00 162.6 cm [facility] Body weight 2022-06-24 00:39:00 113.399 kg [facility] BMI 2022-06-24 00:39:00 42.91 kg/m2 [facility] Procedures Procedure Date / Time Performing Clinician Source Performed US GALLBLADDER 2023-04-02 14:18:23 Ron Abdullahi [facility] Abdullah H URINE CULTURE 2023-04-02 13:11:00 Bradly Ronwill Barrientos [facility] H CBC WITH PLATELET AND 2023-04-02 13:11:00 Sarmadchetan [facility] DIFFERENTIAL Abdullah H COMPREHENSIVE METABOLIC 2023-04-02 13:11:00 Sarmadchetan [facility] PANEL Abdullah H ESTIMATED GFR 2023-04-02 13:11:00 [facility] URINALYSIS SCREEN AND 2023-04-02 13:10:00 Sarmadchetan [facility] MICROSCOPY, WITH REFLEX Abdullah H TO CULTURE CBC WITH PLATELET AND 2023-03-11 16:06:00 Bernadette [facility] DIFFERENTIAL COMPREHENSIVE METABOLIC 2023-03-11 16:06:00 Bernadette [facility] PANEL TROPONIN T 2023-03-11 16:06:00 Bernadette [facility] NT-PROBNP 2023-03-11 16:06:00 Bernadette [facility] HCG QUALITATIVE, SERUM 2023-03-11 16:06:00 Bernadette [facility] SCREEN ESTIMATED GFR 2023-03-11 16:06:00 Bernadette [facility] XR CHEST 1 VW PORTABLE 2023-03-11 15:42:54 Bernadette [facility] ECG 12-LEAD 2023-03-11 15:24:30 Bernadette [facility] URINE CULTURE 2022-12-01 20:20:00 Andi Lopez ospital HCG QUALITATIVE, URINE 2022-12-01 20:20:00 Andi Lopez [facility] SCREEN URINALYSIS SCREEN AND 2022-12-01 20:20:00 Andi Lopez [facility] MICROSCOPY, WITH REFLEX TO CULTURE CT HEAD WO CONTRAST 2022-06-24 02:05:05 Abimbola Lincoln H [facility] CT CERVICAL SPINE WO 2022-06-24 02:04:53 Isidro, Abimbola H [facility] CONTRAST ED REFERRAL TO [facility] 2022-05-14 13:11:51 [facility] 2022-03-17 05:[facility] Vitaliy [facility]GANIZATION (PCP) ECG 12-LEAD 2022-03-17 05:38:10 [facility] spital Vitaliy ECG ED PRELIMINARY 2022-03-17 04:44:21 [facility] INTERPRETATION Vitaliy HCG QUALITATIVE, URINE 2022-03-17 03:49:00 Adolfo Montejo [facility] SCREEN XR CHEST 2 VW 2022-03-17 [facility], RAPID 2022-03-17 03:32:00 [facility] ANTIGEN [place] INFLUENZA ANTIGEN 2022-03-17 03:32:00 [facility] Vitaliy RESPIRATORY PATHOGEN 2022-03-17 03:32:00 [facility] PANEL WITH COVID-19 Vitaliy RT-PCR STREP SCREEN CULTURE 2022-03-17 03:32:00 [facility] Vitaliy XR CHEST 2 VW 2022-03-03 13:27:46 [facility] INFLUENZA ANTIGEN 2022-03-03 13:02:00 [facility] RESPIRATORY PATHOGEN 2022-03-03 13:02:00 [facility] PANEL WITH COVID-19 RT-PCR ECG ED PRELIMINARY 2022-03-03 12:53:04 Rosalind Cueto [facility] INTERPRETATION ECG 12-LEAD 2022-03-03 12:42:43 [facility] Plan of Care Planned Activity Planned Date Details Comments Source Future Scheduled 2023-05-31 Hepatitis C screening [facility] Test 09:51:19 (procedure) [code = 636236104] Future Scheduled 2023-05-31 Screening for [facility] Test 09:51:19 malignant neoplasm of cervix (procedure) [code = 584827599] Future Scheduled 2023-05-31 COVID-19 [facility]ACCINE (2 - [facility] 09:51:19 Pfizer series) [code = COVID-19 VACCINE (2 - Pfizer series)] Future Scheduled 2023-05-31 INFLUENZA VACCINE (#1) [facility] 09:51:19 [code = INFLUENZA VACCINE (#1)] Future Scheduled 2023-05-31 [facility] Test 09:51:19 (procedure) [code = 762341276] Future Scheduled 2023-05-31 [facility] Test 09:51:19 malignant neoplasm of cervix (procedure) [code = 198384057] Future Scheduled 2023-05-31 COVID-19 VACCINE (2 - [facility] Test 09:51:19 Pfizer series) [code = COVID-19 VACCINE (2 - Pfizer series)] Future Scheduled 2023-05-31 INFLUENZA VACCINE (#1) [facility] Test 09:51:19 [code = INFLUENZA VACCINE (#1)] Future Scheduled 2023-05-31 [facility] 09:51:19 (procedure) [code = 414848964] Future Scheduled 2023-05-31 [facility] Test 09:51:19 malignant neoplasm of cervix (procedure) [code = 293611884] Future Scheduled 2023-05-31 COVID-19 VACCINE (2 - [facility] 09:51:19 Pfizer series) [code = COVID-19 VACCINE (2 - Pfizer series)] Future Scheduled 2023-05-31 INFLUENZA VACCINE (#1) [facility] Test 09:51:19 [code = INFLUENZA VACCINE (#1)] Future Scheduled 2023-03-27 [facility] Test 01:47:07 (procedure) [code = 522569033] Future Scheduled 2023-03-27 [facility] Test 01:47:07 malignant neoplasm of cervix (procedure) [code = 045743802] Future Scheduled 2023-03-27 COVID-19 VACCINE (2 - [facility] Test 01:47:07 Pfizer series) [code = COVID-19 VACCINE (2 - Pfizer series)] Future Scheduled 2023-03-27 [facility]ZA [facility]ACCINE [facility] Test 01:47:07 [code = INFLUENZA VACCINE] Future Scheduled 2022-09-18 Pneumococcal Vaccine: [facility] Test 14:43:59 Pediatrics (0 to 5 Years) and At-Risk Patients (6 to 64 Years) (1 - PCV) [code = Pneumococcal Vaccine: Pediatrics (0 to 5 Years) and At-Risk Patients (6 to 64 Years) (1 - PCV)] Future Scheduled 2022-09-18 Hepatitis C screening [facility] Test 14:43:59 (procedure) [code = 194932929] Future Scheduled 2022-09-18 [facility] Test 14:43:59 malignant neoplasm of cervix (procedure) [code = 374290012] Future Scheduled 2022-09-18 COVID-19 VACCINE (2 - [facility] Test 14:43:59 Pfizer series) [code = COVID-19 VACCINE (2 - Pfizer series)] Future Scheduled 2022-09-18 INFLUENZA VACCINE [facility] Test 14:43:59 [code = INFLUENZA VACCINE] Future Scheduled 2022-07-31 HEPATITIS B VACCINES [facility] Test 16:34:59 (1 of 3 - 3-dose series) [code = HEPATITIS B VACCINES (1 of 3 - 3-dose series)] Future Scheduled 2022-07-31 Pneumococcal Vaccine: [facility] Test 16:34:59 Pediatrics (0 to 5 Years) and At-Risk Patients (6 to 64 Years) (1 - PCV) [code = Pneumococcal Vaccine: Pediatrics (0 to 5 Years) and At-Risk Patients (6 to 64 Years) (1 - PCV)] Future Scheduled 2022-07-31 Hepatitis C screening [facility] Test 16:34:59 (procedure) [code = 393466617] Future Scheduled 2022-07-31 [facility] Test 16:34:59 malignant neoplasm of cervix (procedure) [code = 757344099] Future Scheduled 2022-07-31 COVID-19 VACCINE (2 - [facility] Test 16:34:59 Pfizer series) [code = COVID-19 VACCINE (2 - Pfizer series)] Future Scheduled 2022-07-31 INFLUENZA VACCINE [facility] Test 16:34:59 [code = INFLUENZA VACCINE] Encounters Start End Encounter Admission Attending Care Care Encounter Source Date/Time Date/Time Type Type Clinicians Facility Department ID 2023-03-27 Outpatient BUSYB ALVIN [id number] Bee 09:05:30 [facility] 2019-10-21 Inpatient [facility] FERS [id number] [facility] 19:27:00 60 [facility] 2023-06-02 2023-06-02 Outpatient [id number] PRIV PRIV [id number] [facility] 00:00:00 00:00:00 diyala_S [id number] Medic al 2023-04-02 2023-04-02 Emergency Alzhanezali, [id number] [facility] 07:37:00 12:18:[id number] Abdullah H 3.430.2.7 Hos rain .[id number] l .8 2023-04-02 2023-04-02 Emergency Alharris, [id number] 21 [id number] [facility] 07:37:00 12:18:[id number] Abdullah H 3.430.2.7 Hos rain .[id number] l .8 2023-04-02 2023-04-02 Outpatient RENY PALENCIAYB BUSYB [id number] Bee 00:00:00 00:00:00 AAYUSH [facility] 2023-03-11 2023-03-11 Emergency David Becker [id number] [facility] 10:05:00 12:06:00 [id number] st 3.430.2.7 Hospit a .3.763776 l .8 2023-03-11 2023-03-11 Emergency David Becker 1.2.840.1 [id number] 2 [id number] Methodi 10:05:00 12:06:[address] 3.430.2.7 Hospit a .3.967746 l .8 2022-12-31 2022-12-31 Emergency Tramaine, 1.2.840.1 [id number] 2 [id number] Methodi 12:48:00 15:01:00 Bhargav [address] 3.430.2.7 Hospit a .3.719166 l .8 2022-12-31 2022-12-31 Emergency Gemignani, 1.2.840.1 [id number] 2 [id number] Methodi 12:48:00 15:01:00 Bhargav Rod[address] 3.430.2.7 Hospit a .3.399908 l .8 2022-12-31 2022-12-31 Travel 1.2.840.1 1.2.491.914 2615 398865 Methodi 00:00:00 00:00:[address] 3.430.2.7 0.2.7.3.698 Ho spita .3.427438 084.8 l .8 2022-12-31 2022-12-31 Travel 1.2.840.1 1.2.382.419 9820 709234 Methodi 00:00:00 00:00:[address] 3.430.2.7 0.2.7.3.698 Ho spita .3.037129 084.8 l .8 2022-12-01 2022-12-01 Emergency Christine, 1.2.840.1 [id number] 2100 659396 Methodi 14:02:00 16:47:[address] Evert 3.430.2.7 Hospi ta .3.670098 l .8 2022-12-01 2022-12-01 Emergency Christine, 1.2.840.1 [id number] 2099444 Methodi 14:02:00 16:47:[address] Evert 3.430.2.7 Hospi ta .3.541501 l .8 2022-12-01 2022-12-01 Travel 1.2.840.1 1.2.681.952 8023 910387 Methodi 00:00:00 00:00:[address] 3.430.2.7 0.2.7.3.698 Ho spita .3.048329 084.8 l .8 2022-12-01 2022-12-01 Travel 1.2.840.1 1.2.037.440 9247 181198 Methodi 00:00:00 00:00:[address] 3.430.2.7 0.2.7.3.698 Ho spita .3.923073 084.8 l .8 2022-06-23 2022-06-24 Emergency Isidro, 1.2.840.1 [id number] 074 [id number] Methodi 20:41:00 06:17:00 Abimbola H 82853.1.[address] 3.430.2.7 Hospit a .3.165505 l .8 2022-06-23 2022-06-23 Travel 1.2.840.1 1.2.483.958 7498 778079 Methodi 00:00:00 00:00:[address] 3.430.2.7 0.2.7.3.698 Ho spita .3.681918 084.8 l .8 2022-05-14 2022-05-14 Emergency Fragoso, 1.2.840.1 [id number] 2099 225506 Methodi 08:02:00 08:37:00 [facility] 61156.1.[address] Clark 3.430.2.7 Hospit a .3.466452 l .8 2022-05-14 2022-05-14 Travel 1.2.840.1 1.2.268.969 9792 821310 Methodi 00:00:00 00:00:[address] 3.430.2.7 0.2.7.3.698 Ho spita .3.244633 084.8 l .8 2022-05-05 2022-05-05 Emergency EM Dark, Regina HCACL CHASITY G001 190467 [facility] 09:09:00 09:40:00 47 [facility] 2022-05-05 2022-05-05 Emergency EM Regina Ruiz HCACL HCACL G684 430-20 [facility] 09:09:00 09:40:00 611001 [facility] 2022-03-16 2022-03-17 Emergency Kendig, 1.2.840.1 [id number] 2100 525798 Methodi 22:26:00 01:14:[address] Mehran 3.430.2.7 Hosp kerry .3.829137 l .8 2022-03-03 2022-03-03 Emergency Fonseca-Kaleb 1.2.840.1 [id number] Methodi 07:35:00 09:19:[address] 3.430.2.7 Hospit a .3.067352 l .8 2022-01-02 2022-01-02 Emergency de Hernandez, 1.2.840.1 [id number] 21 [id number] Methodi 17:02:00 18:15:[address] Rhett 3.430.2.7 Hospit a .3.351508 l .8 2022-01-02 2022-01-02 Travel 1.2.840.1 1.2.055.901 5667 544636 Methodi 00:00:00 00:00:[address] 3.430.2.7 0.2.7.3.698 Ho spita .3.532936 084.8 l .8 2021-12-26 2021-12-26 Emergency EM Nwoye, HCACL CHASITY [id number]- 20 [facility] 09:46:00 12:31:00 Christopher 634980 Cl [facility] 2021-12-26 2021-12-26 Emergency EM Nwoye, HCACL HCACL [id number] [facility] 09:46:00 12:31:00 Christopher 88 Cl [facility] 2021-11-25 2021-11-26 Emergency Edwardo, 1.2.840.1 [id number] 2100 380859 Methodi 22:58:00 00:58:[address] [place] [address] 3.430.2.7 [facility] .[facility] 2021-04-10 2021-04-10 Emergency EDWARDO, [place] [address] [id number] 65 Grace 00:00:00 00:00:00 ANDI 595 Method i 2021-04-05 2021-04-06 Emergency EM Timphalle, HCACL CHASITY [id number] -20 [facility] 23:38:00 02:26:00 Torrey 400719 [facility] 2021-03-12 2021-03-12 Emergency EARL, [place] [address] [id number] 47 Grace 00:00:00 00:00:00 ISABEL 048 Method i 2021-02-27 2021-02-28 Inpatient JENN, [place] [address] 600 [id number] 769 Grace 00:00:00 00:00:00 QUENTIN 164 Method i 2021-02-16 2021-02-16 Emergency LOPEZ, [place] [address] [id number] 38 Grace 00:00:00 00:00:00 ANDI 405 Method i 2020-12-28 2020-12-28 Emergency ISIDRO, [place] [address] 112 [id number] 558 Grace 00:00:00 00:00:00 ABIMBOLA 175 Method i 2020-07-14 2020-07-14 Emergency EDWARDO, [place] [address] [id number] 48 Grace 00:00:00 00:00:00 ANDI 585 Method i 2020-05-15 2020-05-15 Emergency NORLUPILLOKY, [place] [address] [id number] 6917 Grace 00:00:00 00:00:00 BELTRAN 343 Meth janelle 2020-04-28 2020-04-28 Emergency GLEN, [place] [address] [id number] 90 Grace 00:00:00 00:00:00 KIMBERLY 038 Method i 2020-02-18 2020-02-18 Emergency VANDER [place] [address] [id number] 64 Grace 00:00:00 00:00:00 VITALIY, 573 Method i [address] Results Test Description Test Time Test Comments Results Result Comments Source ECG 12 lead 2023-05-11 20:45:47 Test Item Value Reference Range Interpretation Comme nts Ventricular rate (test code = 253) 68 Atrial rate (test code = 255) 68 CO interval (test code = 266) 162 QRSD [...] of 17-MAR-2022 00:38,-No significant change was found- [address]2023-08-14 20:45:47 Test Item Value Reference Range Interpretation Comments Ventricular rate (test 68 code = 253) Atrial rate (test code 68 = 255) CO interval (test code 162 = 266) QRSD [...] of 17-MAR-2022 00:38,-No significant change was found- [address]2023-08-14 20:45:47 Test Item Value Reference Range Interpretation Comments Ventricular rate (test 68 code = 253) Atrial rate (test code 68 = 255) CO interval (test code 162 = 266) QRSD [...] of 17-MAR-2022 00:38,-No significant change was found- [facility]2023-07-06 14:05:00 Test Item Value Reference Range Interpretation Comments Urine culture (test SEE COMMENT Bacteriu kp screen code = 2791526) negative. [facility]2023-07-06 14:05:00 Test Item Value Reference Range Interpretation Comments Urine culture (test SEE COMMENT Bacteriu kp screen code = 0549623) negative. [facility]2023-07-06 14:05:00 Test Item Value Reference Range Interpretation Comments Urine culture (test SEE COMMENT Bacteriu kp screen code = 2472319) negative. [address]2022-06-29 20:01:10 Test Item Value Reference Range Interpretation Comments Ventricular rate (test code = 253) Atrial rate (test code = 255) CO interval (test code = 266) QRSD interval [...] of 03-MAR-2022 07:42,-No significant change was found- [address]2022-06-29 20:01:10 Test Item Value Reference Range Interpretation Comments Ventricular rate (test code = 253) Atrial rate (test code = 255) CO interval (test code = 266) QRSD interval [...] of 03-MAR-2022 07:42,-No significant [facility] [id number] 11:15:00 Test Item Value Reference Range Interpretation Comments Strep screen No beta hemolytic Specimen culture Streptococci InformationSpec imen isolate (test isolated Source: Throat Specimen code = 547-0) [facility] [id number] 11:15:00 Test Item Value Reference Range Interpretation Comments Strep screen No beta hemolytic Specimen culture Streptococci InformationSpec imen isolate (test isolated Source: Throat Specimen code = 547-0) Site: [facility] specified [facility]- WRIST 3 + V [id number] 00:00:00 [facility] 1990 Sex: F FAX: Winnie Martinez [phone] Dixon: St: REG Name: REYNA EARLY [facility] : 1990 Age/S: 31/F [address] [place] [address] Unit #: [id number] Loc: [place] [address] Phys: Winnie Begum Acct: [id number] Dis Date: Status: REG ER PHONE #: [phone] Exam Date: FAX #: [phone] Reason: wrist pain EXAMS: CPT CODE: [id number] XR WRIST 3 + [place] LT [address]13 PROCEDURE INFORMATION: Exam: XR Left Wrist Exam [...] by: Kendrick Watkins M.D. CC: Winnie BAL [facility] Technologist: RT Olivia(Ronit) Trnscrd Date/Time/By: 12/26/2021 (1119) : B y: Guzman.KWL Orig Print D/T: S: 12/26/2021 (1121) PAGE 1 Signed Report- XR CHEST 1 [id number] 00:48:00 [facility] : 1990 Sex: F FAX: Torrey Javed MD [phone] Dixon: St: REG FAX: Anca Smyth [facility] [phone] -- Name: [facility] 1990 Age/S: 30/F [address] [place] [address] Unit #: [id number] Loc: [place] [address] Phys: Anca Smyth Acct: [id number] Dis Date: Status: REG ER PHONE #: [phone] Exam Date: 04/06/202141 FAX #: [phone] Reason: cough EXAMS: CPT CODE: [id number] XR CHEST 1 V 37952 Study: - XR CHEST 1 V 04/06/2021 12:21 AM Patient Name: REYNA EARLY MR: [id number] : 1990; Age: 30 years y/o Female Ordering Physician: Anca Smyth Clinical Indication: cough Comparison: Chest radiograph 10/21/2019 FINDINGS LUNGS: The hypoinflated lungs are clear of consolidation, pleural effusion, and pneumothorax. HEART AND MEDIASTINUM: Normalsize heart. LINES: None. OSSEOUS STRUCTURES: No fracture, dislocation, or suspicious focal osseous lesion. OTHER: None. IMPRESSION: Mildly hypoinflated, but clear lungs. SL: TPAINTER-H at 0048 Reported and signed by: Lucas Nicole M.D. CC: Torrey Javed MD; Anca Smyth Technologist: RT Magalie(R) Trnscrd Date/Time/By: 04/06/2021 (47) : By: [email or web address] Orig Print D/T: S: 04/06/2021 (50) PAGE 1 Signed ReportCoronavirus 2019 nCoV [id number] 00:35:00 Test Item Value Reference Range Interpretation Comments Coronavirus 2019 NEGATIVE Negative Negative re sults should be nCoV Bedside (test treated a s presumptive and, code = ifinconsistent with [id number]) clinical signs and symptoms or necessaryfor patient management, nancy uld be tested with an alternativemole cular assay. Negative result s do not preclude NDHD-XoV-5bwfiq tion and should not be u sed as the sole basis forp atient management deci sions. Negative result s should beconsidered in the context of a patient's recent exposures,histo ry, presence of clinical sig ns and symptoms consis tentwith COVID-19. 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 (test code = 06748-5) Whether the patient has symptoms related to condition of interest (test code = 54799-3) Patient was hospitalized because of this condition (test code = 46393-8) Whether the patient was admitted to intensive care unit (ICU) for condition of interest (test code = 77369-3) Whether patient resides in a congregate care setting (test code = 82637-1) [facility] (COVID-19) RNA [Presence] in Respiratory specimen by KEENAN with probe [id number] 01:13:01 Test Item Value Reference Range Interpretation Comments SARS-CoV-2 (COVID-19) RNA Not detected Not-Detected [Presence] in Respiratory specimen by KEENAN with probe detection (test code = 66791-7) [facility]- XR CHEST 2 [id number] 20:09:00 Name: NNEKAREYNA BETI [facility] : 1990 Age/S:29 /F [address] [facility] Unit#:[id number] Loc: [place] [address] Phys: Enrico Davies MD Dis Date: PHONE #: [phone] Status: REG ER FAX #: [phone] Exam Date: 10/21/2019 Reason: cough EXAMS: CPT CODE: [id number] XR CHEST 2 V 42609 REASON FOR EXAM: cough Exam Order Date: [...] 10/21/2019 (2011) PAGE 1 Signed ReportCAPILLARY BLOOD [id number] 18:20:00 Test Item Value Reference Range Interpretation Comments TOTAL CO2 CONTENT TEST NOT 24.0-30.0 N Previously reported (test code = TCO2) PERFORMED MMOL/L resul t: 29.0 MMOL/LEdited by : THOMAS on 02/01/19:207959 9 1809: TCO2 previously repo rted as: 29.0 MMOL/L CAPILLARY BLOOD TEST NOT 7.33-7.45 Previously r eported GAS PH (test code PERFORMED result: 7. 22 Edited = PHC) by: THOMAS o n 02/01/19:1807 02/01/19 1807: CBG PH previously reported as: 7. 22 L CAPILLARY BLOOD TEST NOT 35-45 Previously r eported GAS PCO2 (test PERFORMED mmHg result: 66 code = PCO2C) mmHgEdited by: THOMAS on 02/01/19:058347 9 1808: CBG PCO 2 previously repo rted as: 66 *H mmHg CAPILLARY BLOOD TEST NOT 30-50 N Previously r eported GAS PO2 (test code PERFORMED mmHg result: 39 = PO2C) mmHgEdited by: THOMAS on 02/01/19: 9 180: CBG PO2 previously repo rted as: 39 [...] by GAS PEEP (test PERFORMED cmH2O certified pick pulling machine operator code = PEEPC) [facility]trPreviously reported result : [id number] by: 1 on 03/07/19:1820 03/07/19 182: PEEP previously repo rted as: cmH2O Perfo rmed by certified pick pulling machine operator at [facility] CtrPreviously reported result : 7 [id number] by: THOMAS on 02/01/19:1808: PEEP previously repo rted as: 7 cmH2O Performed by certified opera molina at [facility]tr CBG TEMPERATURE TEST NOT Previously r eported (test code = PERFORMED F result: 98.0 FE dited TEMPC) by: THOMAS o n 02/01/19:1808: TEMPC previously repo rted as: 98.0 F CAPILLARY BLOOD TEST NOT Previously r eported GAS SITE (test PERFORMED result: Heel Edited code = SITEC) by: THOMAS on 02/01/19:1808: SITE previously repo rted as: Heel VENOUS BLOOD [id number] 18:19:00 Test Item Value Reference Range Interpretation [...] 0 HERMAN) mmol/LEdited by : THOMAS on 02/01/19:180902/01/19 1810: HERMAN previously repo rted as: -3.0 mmol/L [...] y PEEP (test code PERFORMED cmH2O certified pick pulling machine operator at = PEEPV) [facility] CtrPreviously reported result : [id number] by: SERGIO on 03/07/19:181803/07/191818: VBG PEEP previously reported as: cm H2O Performed by certified opera tor at [facility] CtrPreviously reported result : 5 [id number] by: THOMAS on 02/01/19:180902/01/191809: VBG PEEP previously reported as: 5 cmH2O Performed by certified opera tor at [facility] VENOUS BLOOD GAS TEST NOT Previously reported TEMP (test code PERFORMED F result: 97.6 FEdited = TEMPV) by: THOMAS o n 02/01/19:1809: TEMPV previously repo rted as: 97.6 F VENOUS BLOOD GAS Other SITE (test code = SITEV) VENOUS TCO2 TEST NOT Previously repo rted (test code = PERFORMED result: 29 Edit ed by: TCO2V) [email or web address].DJF on 02/01/19:530810 /04/15 1810: TCO2V previously repo rted as: 29 - CT ABD PELVIS W/[id number] 00:56:00 Name: REYNA EARLY : 1990 Age/S: 28 / F [address] [place] [address] Blvd Unit #: [id number] Loc: [place] [address] Phys: Winnie Begum MACHINE SORTER Acct: [id number] Dis Date: Status: REG ER PHONE #: [phone] Exam Date: 02/07/2019 0037 FAX #: [phone] Reason: s/p , upper abd pain and fevers. EXAMS: CPT CODE: [id number] CT ABD PELVIS W/CONT 66706 EXAM: CT, CT ABDOMEN PELVIS W CONTRAST: [...] 1 Signed Report (CONTINUED) Name: REYNA EARLY [facility] : 1990 Age/S: 28 / F [address] [place] [address] Unit #: [id number] Loc: [place] [address] Phys: Winnie Begum NP Acct: [id number] Dis Date: Status: REG ER PHONE #: [phone] Exam Date: 02/07/2019 0037 FAX #: [phone] Reason: s/p c- section, upper abd pain and fevers. EXAMS: CPT CODE: [id number] CT ABD PELVIS W/CONT 48522 (Continued) slight anterior listhesis of L5 on [...] Tigre(R) CTDI: DLP: Trnscb Date/Time: 02/07/2019 (005) [email or web address] Orig Print D/T: S: 02/07/2019 (0059) PAGE 2 Signed Report COMPREHENSIVE METABOLIC [id number] 23:40:00 Test Item Value Reference Range Interpretation [...] TOTAL (test code = ALKP) COMPREHENSIVE METABOLIC [id number] 23:36:00 Test Item Value Reference Range Interpretation [...] TOTAL (test code = ALKP) CBC W/AUTO [id number] 23:33:00 Test Item Value Reference Range Interpretation [...] REQUIRED (test NO code = MDIFF) SURGICAL [id number] 08:10:00 RUN DATE: 02/04/19 [facility] *LIVE* PAGE 1 RUN TIME: 0810 Specimen Inquiry RUN USER: INTERFACE -------- ----PATIENT: REYNA EARLY LOC: AGUSTINA U #: [id number] AGE/SX: 28/F ROOM: [facility] RE02/01/19OLY DR: Gabriel Torres MD : [birth year] BED: 1 DIS: STATUS: ADM IN TLOC: SPEC #: [id number] RECD: 02/02/19 STATUS: NASIM RUSSO #: [id number] [place]: 02/02/[address]: Gabriel Torres MD ENTERED: 02/03/19 SP TYPE: SURG SPEC OTHR DR: Self Referred Erick Carbajal MD, JR, Patrick MDORDERED: GM LEVEL 4 CODES: [id number] - FALLOPIAN TUBE DL8410 - PLACENTA, NOS COPIES TO: Self Referred Gabriel Torres MD [address] [place], [place] [address] [email or web address] Erick Carbajal MD [address] [id number] [email or web address] Roderick Varela MD [address] [address] PROCEDURES: GM LEVEL 4 (Incomplete) TISSUES: [...] CONTINUED ON NEXT PAGE RUN DATE: 02/04/19 [facility] *LIVE* PAGE 2 RUN TIME: 809 Specimen Inquiry RUN USER: INTERFACE SPEC #: [id number] PATIENT: REYNA EARLY #[id number] (Kate nued) GROSS AND MICROSCOPIC GROSS EXAMINATION: [...] SIGNATURE ON FILE Domenico Sherwood Erick MOORE 02/04/1910 END OF REPORT CBC W/AUTO [id number] 07:37:00 Test Item Value Reference Range Interpretation [...] MDIFF) COMMENTS: POD #1 and #2COMPREHENSIVE METABOLIC [id number] 05:40:00 Test Item Value Reference Range Interpretation [...] code = ALKP) COMMENTS: POD #1CBC W/AUTO [id number] 05:36:00 Test Item Value Reference Range Interpretation [...] MDIFF) COMMENTS: POD #1 and #2VENOUS BLOOD [id number] 18:10:00 Test Item Value Reference Range Interpretation Comments VENOUS BLOOD GAS PH 7.33-7.45 Previous ly reported (test code = PHV) result: 7. 11 Edited by: THOMAS on 02/01/19:8969031808: PH previo usly reported as: 7. 11 L VENOUS BLOOD GAS PCO2 mmHg 43-47 Previo usly reported (test code = PCO2V) result: 82 mmHgEdited by: THOMAS on 02/01/19:7238481808: VENOUS PC O2 previously repo rted as: [...] med by certified (test code = PEEPV) pick pulling machine operator [facility]trPrevious ly reported result : 5 [id number] by: THOMAS on 02/01/19:181 0 02/01/191809: VBG PEEP previously reported as: 5 cmH2O Performed by ce rtified pick pulling machine operator at [facility] VENOUS BLOOD GAS TEMP F Previo usly reported (test code = TEMPV) result: 97.6 FEdited by: THOMAS on 02/01/19: 1810: TEMPV pre viously reported as: 97 .6 F VENOUS BLOOD GAS SITE Other (test code = SITEV) VENOUS TCO2 (test Previously reported code = TCO2V) result: 29 Gamal lon by: THOMAS on 02/01/19:1809: TCO2V pre viously reported as: 29 CAPILLARY BLOOD [id number] 18:09:00 Test Item Value Reference Range Interpretation Comments TOTAL CO2 CONTENT MMOL/L 24.0-30.0 N Previously reported (test code = TCO2) result: 2 9.0 MMOL/LEdited by : THOMAS on 02/01/19:1808: TCO2 prev iously reported as: 29 .0 MMOL/L CAPILLARY BLOOD GAS PH 7.33-7.45 Previ ously reported (test code = PHC) result: 7. 22 Edited by: THOMAS on 02/01/19:1806 0 02/01/191806: CBG PH pr eviously reported [...] d by certified PEEP (test code = pick pulling machine operator a t [facility]EEPC) Med CtrPrevious ly reported result : 7 [id number] by: THOMAS on 02/01/19:1808: PEEP prev iously reported as: 7 cmH2O Performed by ce rtified pick pulling machine operator at [facility] CBG TEMPERATURE (test F Previo usly reported code = TEMPC) result: 98.0 F Edited by: THOMAS on 02/01/19:1808: TEMPC pre viously reported as: 98 .0 F CAPILLARY BLOOD GAS Previous ly reported SITE (test code = result: He el Edited by: SITEVirginia) THOMAS on 02/01/19:1808: SITE prev iously reported as: He el CAPILLARY BLOOD [id number] 17:48:00 Test Item Value Reference Range Interpretation [...] d by PEEP (test code = certified pick pulling machine operator PEEPC) at [facility] CBG TEMPERATURE (test 98.0 F code = TEMPC) CAPILLARY BLOOD GAS Heel SITE (test code = SITEC) VENOUS BLOOD [id number] 14:27:00 Test Item Value Reference Range Interpretation [...] by (test code = PEEPV) certifie d pick pulling machine operator at [facility] VENOUS BLOOD GAS TEMP 97.6 F (test code = TEMPV) VENOUS BLOOD GAS SITE Other (test code = SITEV) VENOUS TCO2 (test 29 code = TCO2V) CORD ARTERIAL BLOOD [id number] 14:03:00 Test Item Value Reference Range Interpretation [...] O2S/C) 9 % 25-45 L COMPREHENSIVE METABOLIC [id number] 17:24:00 Test Item Value Reference Range Interpretation [...] N TOTAL (test code = ALKP) URIC [id number] 17:24:00 Test Item Value Reference Range Interpretation Comments URIC ACID (test code = URIC) 4.6 mg/dL 2.6-7.2 N LACTIC DEHYDROGENASE(LDH)2019-01-31 17:24:00 Test Item Value Reference Range Interpretation Comments LACTIC DEHYDROGENASE(LDH) (test 154 IUnits/L 84-246 N code = LDH) URINALYSIS [id number] 17:09:00 Test Item Value Reference Range Interpretation [...] MUCU) TRACE /LPF NONE SEEN CBC W/AUTO [id number] 17:04:00 Test Item Value Reference Range Interpretation [...] (test NO code = MDIFF) COMPREHENSIVE METABOLIC [id number] 23:53:00 Test Item Value Reference Range Interpretation [...] N TOTAL (test code = ALKP) URIC [id number] 23:53:00 Test Item Value Reference Range Interpretation Comments URIC ACID (test code = URIC) 4.2 mg/dL 2.6-7.2 N LACTIC DEHYDROGENASE(LDH)2019-01-26 23:53:00 Test Item Value Reference Range Interpretation Comments LACTIC DEHYDROGENASE(LDH) (test 144 IUnits/L 84-246 N code = LDH) DRUGS OF ABUSE SCREEN [id number] 23:45:00 Test Item Value Reference Range Interpretation [...] ed for non-medical pur poses. AMNISURE (ROM) [id number] 23:43:00 Test Item Value Reference Range Interpretation Comments AMNISURE (ROM) TEST (test NEGATIVE NEGATIVE OP ENED:12/05/2018 code = AMNI) COMPREHENSIVE METABOLIC [id number] 23:39:00 Test Item Value Reference Range Interpretation [...] 20-125 TOTAL (test code = ALKP) URIC [id number] 23:39:00 Test Item Value Reference Range Interpretation Comments URIC ACID (test code = URIC) 4.2 mg/dL 2.6-7.2 N LACTIC DEHYDROGENASE(LDH)2019-01-26 23:39:00 Test Item Value Reference Range Interpretation Comments LACTIC DEHYDROGENASE(LDH) (test IUnits/L 84-246 code = LDH) DRUGS OF ABUSE SCREEN [id number] 23:36:00 Test Item Value Reference Range Interpretation [...] us ed for non-medical pur poses. URINALYSIS [id number] 23:31:00 Test Item Value Reference Range Interpretation [...] MUCU) TRACE /LPF NONE SEEN CBC W/AUTO [id number] 23:26:00 Test Item Value Reference Range Interpretation [...] REQUIRED (test NO code = MDIFF) URINALYSIS [id number] 14:32:00 Test Item Value Reference Range Interpretation [...] MUCU) TRACE /LPF NONE SEEN COMPREHENSIVE METABOLIC [id number] 14:30:00 Test Item Value Reference Range Interpretation [...] N TOTAL (test code = ALKP) URIC [id number] 14:30:00 Test Item Value Reference Range Interpretation Comments URIC ACID (test code = URIC) 4.3 mg/dL 2.6-7.2 N LACTIC DEHYDROGENASE(LDH)2019-01-20 14:30:00 Test Item Value Reference Range Interpretation Comments LACTIC DEHYDROGENASE(LDH) (test 128 IUnits/L 84-246 N code = LDH) COMPREHENSIVE METABOLIC [id number] 14:20:00 Test Item Value Reference Range Interpretation [...] 20-125 TOTAL (test code = ALKP) URIC [id number] 14:20:00 Test Item Value Reference Range Interpretation Comments URIC ACID (test code = URIC) 4.3 mg/dL 2.6-7.2 N LACTIC DEHYDROGENASE(LDH)2019-01-20 14:20:00 Test Item Value Reference Range Interpretation Comments LACTIC DEHYDROGENASE(LDH) (test IUnits/L 84-246 code = LDH) CBC W/AUTO [id number] 14:06:00 Test Item Value Reference Range Interpretation [...] (test NO code = MDIFF) RAPID PLASMA [id number] 12:19:00 Test Item Value Reference Range Interpretation Comments RAPID PLASMA REAGIN (test code = NONREACTIVE NONREACTIVE RPR) AG HEPATITIS B [id number] 12:19:00 Test Item Value Reference Range Interpretation Comments AG HEPATITIS B SURFACE NON REACTIVE INDEX NonReactive (test code = HBSAG) AB HIV 1 12:19:00 Test Item Value Reference Range Interpretation Comments AB HIV 1 2 (test code = NONREACTIVE INDEX NONREACTIVE [id number]) COMPREHENSIVE METABOLIC [id number] 05:49:00 Test Item Value Reference Range Interpretation [...] N TOTAL (test code = ALKP) URIC [id number] 05:49:00 Test Item Value Reference Range Interpretation Comments URIC ACID (test code = URIC) 4.4 mg/dL 2.6-7.2 N LACTIC DEHYDROGENASE(LDH)2019-01-08 05:49:00 Test Item Value Reference Range Interpretation Comments LACTIC DEHYDROGENASE(LDH) (test 110 IUnits/L 84-246 N code = LDH) COMPREHENSIVE METABOLIC [id number] 05:43:00 Test Item Value Reference Range Interpretation [...] 20-125 TOTAL (test code = ALKP) URIC [id number] 05:43:00 Test Item Value Reference Range Interpretation Comments URIC ACID (test code = URIC) 4.4 mg/dL 2.6-7.2 N LACTIC DEHYDROGENASE(LDH)2019-01-08 05:43:00 Test Item Value Reference Range Interpretation Comments LACTIC DEHYDROGENASE(LDH) (test IUnits/L 84-246 code = LDH) URINALYSIS [id number] 05:35:00 Test Item Value Reference Range Interpretation [...] = 1+ /HPF NONE A YEASTUBD) URINALYSIS [id number] 05:33:00 Test Item Value Reference Range Interpretation [...] 1+ /HPF NONE A YEASTUBD) CBC W/AUTO [id number] 05:25:00 Test Item Value Reference Range Interpretation [...] (test code NO = MDIFF) - US [id number] 00:53:00 Name: REYNA EARLY [facility] : 1990 Age/S: 28 / F [address] [place] [address] Blvd Unit #: [id number] Loc: [place] [address] Phys: Jayme Christianson MD Acct: [id number] Dis Date: Status: ADM IN PHONE #: [phone] Exam Date: 01/07/2019 0009 FAX #: [phone] Reason: Hard to find FHT EXAMS: CPT CODE: [id number] [place] [address]996 EXAM: US, LTD: 01/07/2019,2356 hours History: . Vaginal bleeding. Cramping. TECHNIQUE: [...] Valeria Marr RDMS(Lily) Trnscb Date/Time: 01/08/2019 (005) [email or web address] Orig Print D/T: S: 01/08/2019 (005) Probe: PAGE 1 Signed ReportRAPID PLASMA [id number] 21:20:00 Test Item Value Reference Range Interpretation Comments RAPID PLASMA REAGIN (test code = RPR) NONREACTIVE AG HEPATITIS B [id number] 21:20:00 Test Item Value Reference Range Interpretation Comments AG HEPATITIS B SURFACE NON REACTIVE INDEX NonReactive (test code = HBSAG) AB HIV 1 21:20:00 Test Item Value Reference Range Interpretation Comments AB HIV 1 2 (test code = NONREACTIVE INDEX NONREACTIVE SLP54FN) RAPID PLASMA [id number] 16:37:00 Test Item Value Reference Range Interpretation Comments RAPID PLASMA REAGIN (test code = RPR) NONREACTIVE AG HEPATITIS B [id number] 16:37:00 Test Item Value Reference Range Interpretation Comments AG HEPATITIS B SURFACE NON REACTIVE INDEX NonReactive (test code = HBSAG) AB HIV 1 16:37:00 Test Item Value Reference Range Interpretation Comments AB HIV 1 2 (test code = IFL00DW) INDEX NONREACTIVE CBC W/AUTO [id number] 16:23:00 Test Item Value Reference Range Interpretation [...] (test NO code = MDIFF) COMPREHENSIVE METABOLIC [id number] 16:19:00 Test Item Value Reference Range Interpretation [...] N TOTAL (test code = ALKP) URINALYSIS [id number] 16:14:00 Test Item Value Reference Range Interpretation [...] = MUCU) TRACE /LPF NONE SEEN URINALYSIS [id number] 13:59:00 Test Item Value Reference Range Interpretation [...] /LPF NONE SEEN - XR CHEST 2 [id number] 11:56:00 FAX: Gabriel Gomez [phone] [place]: St: [facility] FAX: Shanice Mccarthy DO Name: REYNA EARLY [facility] : 1990 Age/S: 28/F [address] [place] [address] Unit #: [id number] Loc: [place] [address] Phys: Shanice Mccarthy DO Acct: [id number] Dis Date: Status: REG ER PHONE #: [phone] Exam Date: 12/15/2018 1152 FAX #: [phone] Reason: cough EXAMS: CPT CODE: [id number] XR CHEST 2 V 07845 CHEST RADIOGRAPHS - PA AND LATERAL: COMPARISON: None CLINICAL HISTORY: cough Cardiomediastinal silhouette is stable in size. Lungs are clear. There is a small focal eventration of the anterior right hemidiaphragm. No vascular congestion or pneumothorax. IMPRESSION: No acute pulmonary abnormality. at 1156 Reported and signed by: Roni Pal M.D. CC: Gabriel Torres MD; Shanice Mccarthy DO Technologist: Annie Jenkins, RT(R) Trnscrd Date/Time/By: 12/15/2018 (0975) : By: [email or web address] Orig Print D/T: S: 12/15/2018 (0591) PAGE 1 Signed Report- XR CHEST 1 [id number] 22:02:00 FAX: Gabriel Gomez [phone] [place]: St: REG FAX: Zain Andres MD [phone] - Name: REYNA EARLY [facility] : 1990 Age/S: 28/F [address] [place] [address] Unit #: [id number] Loc: [place] [address] Phys: Zain Harris MD Acct: [id number] Dis Date: Status: REG ER PHONE#: [phone] Exam Date: 12/12/20182199 FAX #: [phone] Reason: cough EXAMS: CPT CODE: [id number] XR CHEST 1 V 48203 SINGLE VIEW RADIOGRAPH CHEST INDICATION: cough. TECHNIQUE: [...] Technologist: MILADY Stack RT(R) Trnscrd Date/Time/By: 12/12/2018 (6443) : By: [email or web address] Orig Print D/T: S: 12/12/2018 (1282) PAGE 1 Signed ReportURINALYSIS [id number] 15:23:00 Test Item Value Reference Range Interpretation [...] /LPF NONE SEEN DRUGS OF ABUSE SCREEN [id number] 11:29:00 Test Item Value Reference Range Interpretation [...] ed for non-medical pur poses. COMPREHENSIVE METABOLIC [id number] 11:20:00 Test Item Value Reference Range Interpretation [...] TOTAL (test code = ALKP) COMPREHENSIVE METABOLIC [id number] 11:19:00 Test Item Value Reference Range Interpretation [...] code = ALKP) DRUGS OF ABUSE SCREEN [id number] 11:14:00 Test Item Value Reference Range Interpretation [...] us ed for non-medical pur poses. URINALYSIS [id number] 10:58:00 Test Item Value Reference Range Interpretation [...] MUCU) TRACE /LPF NONE SEEN CBC W/AUTO [id number] 10:50:00 Test Item Value Reference Range Interpretation [...] NO code = MDIFF) - US RETROPERITONEAL [id number] 08:56:00 Name: REYNA EARLY [facility] : 1990 Age/S: 28 / F [address] [place] [address] Bl Unit #: [id number] [place]: [place] [address] Phys: La Nena Dong MD Acct: [id number] Dis Date: Status: REG ER PHONE #: [phone] Exam Date: 11/25/2018 0851 FAX #: [phone] Reason: left flank pain EXAMS: CPT CODE: [id number] US RETROPERITONEAL COM 77510 EXAM: US RETROPERITONEAL COMPLETE DATE: 11/25/2018 7:25 [...] Evaluation is limited due to pain. SL: [id number] PAGE 1 Signed Report (CONTINUED) Name: REYNA EARLY [facility] : 1990 Age/S: 28 / F [address] [place] [address] Unit #: [id number] Loc: [place] [address] Phys: La Nena Dong MD Acct: [id number] Dis Date: Status: REG ER PHONE #: [phone] Exam Date: 11/25/2018 0851 FAX #: [phone] Reason: left flank pain EXAMS: CPT CODE: [id number] [facility] COM 61936 (Continued) at 0856 Reported and signed by: Carloz Farrell D.O. CC: Gabriel Torres MD; Marcial Schultz MD; La Nena Dong MD Technologist: Dilcia Hickey RDMS(BR)(AB) Trnscb Date/Time: 11/25/2018 (0856) [email or web address] Orig Print D/T: S: 11/25/2018(0859) Probe: PAGE 2 Signed Report- XR CHEST 1 [id number] 19:22:00 FAX: Violeta Marie DO [phone] [place]: St: REG FAX: Gabriel Gomez [phone] --- Name: REYNA EARLY [facility] : 1990 Age/S: 28/F [address] [place] [address] Blvd Unit #: [id number] Loc: [place] [place] [address] Phys: Violeta Grijalva DO Acct: [id number] Dis Date: Status: REG ER PHONE #: [phone] Exam Date: 11/10/2018 190 FAX #: [phone] Reason: cough/chest pain EXAMS: CPT CODE: [id number] XR CHEST 1 V 38344 EXAM: Single view portable AP chest. EXAM [...] signed by: Duyen Barajas M.D. CC: Violeta Wellingtonmelissa MOORE; Gabriel Torres MD Technologist: RT Kodi(R); [...] SEEN QNS NOTIFIED JEAN MCKNIGHT 1819- US [id number] 19:01:00 Name: REYNA EARLY [facility] : 1990 Age/S: 28 / F [address] [place] [address] Unit#: [id number] Loc: [place] [address] Phys: Dorothea Grijalvaed DO Acct: [id number] Dis Date: Status: REG ER PHONE #: [phone] Exam Date: 11/10/2018 1831 FAX #: [phone] Reason: abdominal pain/ chest pain EXAMS: CPT CODE: [id number] [place] LTD [address]8850 Exam: Limited obstetric ultrasound. Exam date: November [...] do recommend that this be performed on anonemergent basis. at 1901 Reported and signed by: Duyen Barajas M.D. CC: Violeta Grijalva DO; Gabriel Torres MD Technologist: Miriam Majano RDMS (AB) (OB) Trnscb Date/Time: 11/10/2018 (1900) [email or web address] Orig Print D/T: S:11/10/2018 (1903) Probe: PAGE 1 Signed ReportCOMPREHENSIVE METABOLIC [id number] 18:39:00 Test Item Value Reference Range Interpretation [...] TOTAL (test code = ALKP) CBC W/AUTO [id number] 18:25:00 Test Item Value Reference Range Interpretation [...] code NO = MDIFF) - DOP VEIN [id number] 18:47:00 Name: REYNA EARLY [facility] : 1990 Age/S: 18 / F [address] [place] [address] Unit #: [id number] Loc: [place] [address] Phys: Joselin Alvarez MD Acct: [id number] Dis Date: Status: UNK PHONE #: [phone] Exam Date: 12/21/20081842 FAX #: [phone] Reason: 36WK IUP SWELLING RLE EXAMS: CPT CODE: [id number] DOP VEIN VERNON 14672 Bilateral lower extremity venous Doppler: HISTORY: , [...]
[2023-07-05 05:01] LABS: Absolute Lymphocytes (CBC) 2.8 K/uL (0.7-4.9); Lymphocytes % 29.1 % (15.3-44.8); MCV 91.5 fL (80-100); MPV 7.8 fL (7.6-11.3); Platelets 330 thou/uL (152-406); RBC Red Blood Cell Count 4.37 M/uL (3.86-4.86)
[2023-07-05] MEDS ORDERED: MORPHINE 4 MG/ML SYR ONE (05:05)
[2023-07-05] MEDS ORDERED: ONDANSETRON 4 MG/2 ML VIAL ONE (05:05)
[2023-07-05 05:20] LABS: Albumin 3.5 g/dL (3.4-5.0); Bilirubin Total 0.2 mg/dL (0.2-1.0); Potassium 3.7 mEq/L (3.5-5.1); Protein, Total 7.5 g/dL (6.4-8.2)
--- NOTE | 2023-07-05 05:40 | ER ---
Nurse's Notes [facility] Name: Qasim Resendez Age: 32 yrs Sex: Female : 1990 Arrival Date: 07/05/2023 Time: 04:13 Bed 20 Private MD: Diagnosis: Other cholelithiasis without obstruction Presentation: 07/05 04:25 Chief complaint: Patient states: "I'm having a gallstone attack. It woke me up from my as6 sleep about an hour ago" pt also c/o nausea. Coronavirus screen: At this time, the client does not indicate any symptoms associated with coronavirus-19. Ebola Screen: No symptoms or risks identified at this time. Initial Sepsis Screen: Does the patient meet any 2 criteria? No. Patient's initial sepsis screen is negative. Does the patient have a suspected source of infection? No. Patient's initial sepsis screen is negative. Risk Assessment: Do you want to hurt yourself or someone else? Patient reports no desire to harm self or others. Onset of symptoms was July 05, 2023 at 03:00. 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 - Social history:: Smoking status: Patient denies any tobacco usage or history of. Screenin:52 [facility] ED Fall Risk Assessment (Adult) History of falling in the last 3 months, jb4 including since admission No falls in past 3 months (0 pts) Confusion or Disorientation No (0 pts) Score/Fall Risk Level 0 - 2 = Low Risk Oriented to surroundings, Maintained a safe environment. Abuse screen: Denies threats or abuse. Nutritional screening: No deficits noted. Tuberculosis screening: No symptoms or risk factors identified. Assessment: 04:30 General: Appears in no apparent distress. uncomfortable, Behavior is calm, cooperative, jb4 appropriate for age. Pain: Complains of pain in right upper quadrant Pain does not radiate. Pain currently is 8 out of 10 on a pain scale. Neuro: Level of Consciousness is awake, alert, obeys commands, Oriented to person, place, time, situation. Cardiovascular: Patient's skin is warm and dry. Respiratory: Airway is patent Respiratory effort is even, unlabored, Respiratory pattern is regular, symmetrical. GI: Abdomen is non-distended, obese. : No signs and/or symptoms were reported regarding the genitourinary system. EENT: No signs and/or symptoms were reported regarding the EENT system. Derm: Skin is intact, Skin is pink, warm \\T\\ dry. Musculoskeletal: Circulation, motion, and sensation intact. Range of motion: intact in all extremities. 05:24 Reassessment: Patient appears in no apparent distress at this time. Patient and/or jb4 family updated on plan of care and expected duration. Pain level reassessed. Patient is alert, oriented x 3, equal unlabored respirations, skin warm/dry/pink. Vital Signs: 04:24 BP 142 / 88; Pulse 61; Resp 20 S; Temp 97.9(O); Pulse Ox 96% on R/A; Weight 120.2 kg as6 (R); Height 5 ft. 4 in. (R); Pain 8/10; 05:24 BP 117 / 64; Pulse 50; Resp 16; Pulse Ox 95% on R/A; jb4 04:24 Body Mass Index 45.49 (120.20 kg, 162.56 cm) as6 04:24 Pain Scale: Adult as6 ED Course: 04:15 Patient arrived in ED. jj6 04:16 Octavia Viera MD is Attending Physician. sd2 04:23 Arm band placed on. as6 04:26 Triage completed. as6 04:57 Inserted saline lock: 22 gauge in right antecubital area, using aseptic technique. wm Blood collected. 04:57 Lipase Sent. wm 04:57 CMP Sent. wm 04:57 CBC with Diff Sent. wm 05:22 Gavin Renee, RN is Primary Nurse. jb4 05:38 Brennan Dennis MD is Referral Physician. sd2 05:52 Patient has correct armband on for positive identification. Bed in low position. Call jb4 light in reach. Side rails up X 1. Client placed on continuous cardiac and pulse oximetry monitoring. NIBP monitoring applied. 05:52 No provider procedures requiring assistance completed. IV discontinued, intact, jb4 bleeding controlled, No redness/swelling at site. Pressure dressing applied. Administered Medications: 05:05 Drug: morphine IVP or IV 4 mg IVP once over 4 mins Route: IVP; Infused Over: 4 mins; jb4 Site: right antecubital; 05:05 Drug: Ondansetron IVP 4 mg IVP once; over 2 minutes Route: IVP; Site: right antecubital;jb4 Outcome: 05:39 Discharge ordered by . sd2 05:52 Discharged to home ambulatory, jb4 05:52 Condition: stable 05:52 Discharge instructions given to patient, Instructed on discharge instructions, follow up and referral plans. medication usage, Demonstrated understanding of instructions, follow-up care, medications, Prescriptions given X 2, 05:52 Patient left the ED. jb4 Signatures: Gavin Renee RN RN jb4 Keara Deras Jennifer jj6 David Pearl RN RN as6 Octavia Viera MD MD sd2
--- NOTE | 2023-07-05 05:40 | EDPHYS ---
Physician Documentation [facility] Name: Qasim Resendez Age: 32 yrs Sex: Female : 1990 Arrival Date: 07/05/2023 Time: 04:13 Bed 20 Private MD: ED Physician Octavia Viera HPI: 07/05 04:36 This 32 yrs old Female presents to ER via Ambulatory with complaints of Abdominal Pain. sd2 04:36 32 yo F presents with CC of RUQ abdominal pain that started this morning. She reports sd2 hx of cholelithiasis and has been seen at our facility multiple times for similar symptoms. Reports no significant change in symptoms compared to last time she was seen for gallstones. She has not been able to follow up with the surgeon despite trying twice due to a referral not being sent over by her PCP when she showed up to the appointment. Denies any associated fever, n/v or urinary symptoms. Reports small amount of diarrhea today. 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 - Social history:: Smoking status: Patient denies any tobacco usage or history of. ROS: 04:36 Constitutional: Negative for fever, chills, and weight loss, Eyes: Negative for injury, sd2 pain, redness, and discharge, Cardiovascular: Negative for chest pain, palpitations, and edema, Respiratory: Negative for shortness of breath, cough, wheezing. 04:36 : Negative for dysuria, urinary frequency, hesitancy, urgency and hematuria. MS/Extremity: Negative for injury and deformity, Skin: Negative for injury, rash, and discoloration, Neuro: Negative for headache, numbness and tingling. 04:36 Abdomen/GI: Positive for abdominal pain, diarrhea, Negative for nausea and vomiting, Exam: 04:36 Constitutional: This is a well developed, well nourished patient who is awake, alert, sd2 and in no acute distress. Head/Face: Normocephalic, atraumatic. Eyes: EOMI, normal conjunctiva bilaterally Chest/axilla: Normal chest wall appearance and motion. Nontender with no deformity. Cardiovascular: Regular rate and rhythm with a normal S1 and S2. No gallops, murmurs, or rubs. 2+ distal pulses. Respiratory: Lungs have equal breath sounds bilaterally, clear to auscultation and percussion. No rales, rhonchi or wheezes noted. No increased work of breathing, no retractions or nasal flaring. Abdomen/GI: Soft, ND, TTP in RUQ with no rebound or guarding Skin: Warm, dry with normal turgor. Normal color with no rashes, no lesions, and no evidence of cellulitis. MS/ Extremity: Pulses equal, no cyanosis. Neurovascular intact. Full, normal range of motion. Ambulatory without difficulty. Psych: Awake, alert, with orientation to person, place and time. Behavior, mood, and affect are within normal limits. Vital Signs: 04:24 BP 142 / 88; Pulse 61; Resp 20 S; Temp 97.9(O); Pulse Ox 96% on R/A; Weight 120.2 kg as6 (R); Height 5 ft. 4 in. (R); Pain 8/10; 05:24 BP 117 / 64; Pulse 50; Resp 16; Pulse Ox 95% on R/A; jb4 04:24 Body Mass Index 45.49 (120.20 kg, 162.56 cm) as6 04:24 Pain Scale: Adult as6 MDM: 04:16 Patient medically screened. sd2 04:36 Differential Diagnosis Gastritis, cholecystitis, pancreatitis, SBO, diverticulitis, sd2 kidney stone, appendicitis, UTI, dehydration, electrolyte abnormality among others. Data reviewed: vital signs, nurses notes, lab test result(s). I considered the following discharge prescriptions or medication management in the emergency department Medications were administered in the Emergency Department. See MAR. Test considered but Not performed: Test considered but Not performed: Ultrasound no indication at this time. Multiple visits for same symptoms. No signs of cholecystitis or choledocholithiasis on labs. Pt is in agreement to not have performed today. . 05:37 Counseling: I had a detailed discussion with the patient and/or guardian regarding the sd2 historical points, exam findings, and any diagnostic results supporting the discharge/admit diagnosis, lab results, the need for outpatient follow up, to return to the emergency department if symptoms worsen or persist or if there are any questions or concerns that arise at home. Response to treatment: the patient's symptoms have markedly improved after treatment. ED course: Labs reviewed with no acute changes to indicate repeat imaging at this time. pt to follow up outpatient with PCP and General Surgery for elective gallbladder removal. Pain is controlled and she is comfortable with plan for discharge and outpatient follow up. Verbalizes understanding of discharge plan and strict return precautions.. 07/05 04:36 Order name: CBC with Diff; Complete Time: 05:24 sd2 07/05 04:36 Order name: CMP; Complete Time: 05:24 sd2 07/05 04:36 Order name: Lipase; Complete Time: 05:24 sd2 Administered Medications: 05:05 Drug: morphine IVP or IV 4 mg IVP once over 4 mins Route: IVP; Infused Over: 4 mins; jb4 Site: right antecubital; 05:05 Drug: Ondansetron IVP 4 mg IVP once; over 2 minutes Route: IVP; Site: right antecubital;jb4 Disposition Summary: 07/05/23 05:39 Discharge Ordered Problem: an acute exacerbation sd2 Symptoms: have improved sd2 Condition: Stable sd2 Diagnosis - Other cholelithiasis without obstruction sd2 Followup: sd2 - With: Private Physician - When: 2 - 3 days - Reason: Recheck today's complaints, Continuance of care, Re-evaluation by your physician Followup: sd2 - With: Brennan Dennis MD - When: 2 - 3 days - Reason: Recheck today's complaints, Continuance of care Discharge Instructions: - Discharge Summary Sheet sd2 - Cholelithiasis sd2 - Gallbladder Eating Plan sd2 Forms: - Medication Reconciliation Form sd2 - Thank You Letter sd2 - Antibiotic Education sd2 - Prescription Opioid Use sd2 - Patient Portal Instructions sd2 - Leadership Thank You Letter sd2 Prescriptions: - acetaminophen-codeine 300-30 mg Oral tablet - take 1 tablet ORAL route every 4 to 6 hours As needed as needed for pain; 12 sd2 tablet; Refills: 0, Product Selection Permitted - Ibuprofen 800 mg Oral tablet - take 1 tablet ORAL route every 8 hours As needed take with food; 20 tablet; sd2 Refills: 0, Product Selection Permitted Signatures: Dispatcher [employer] Gavin Greene RN RN jb4 David Pearl RN RN as6 Octavia Viera MD MD sd2 Corrections: (The following items were deleted from the chart) 05:38 04:36 Test considered but Not performed: sd2 sd2
[2023-07-05 05:57] VITALS: TEMP 97.9
[2023-07-05 05:58] VITALS: BP 117/64; O2SAT 95
== END 2023-07-05 05:52 | disposition home or self-care (01) ==
LOC: ER 04:13
DX: K80.80 Other cholelithiasis without obstruction (principal); Z87.442 Personal history of urinary calculi
CPT/HCPCS: 36415; 80053; 83690; 85025; 96374; 96375; 99284; J2405

== ENCOUNTER 2023-07-17 08:00 | Emergency (ER) | payer OTHER, SELFPAY ==
--- OUTSIDE RECORDS SUMMARY | 2023-07-17 08:06 | XMS REPORT | Continuity of Care Document ---
:1990 Author Organization Formerly [facility] t Address [address] [place] [address] [place] [id number] Care Team Providers Name Role Phone Asked, No Pcp Primary Care Physician Unavailable [email or web address]_S Attending Clinician Unavailable Bradly RDZ, Ron Giang H Attending Clinician [phone] AAYUSH PALENCIA Attending Clinician Unavailable Eugenio RDZ, David Attending Clinician Bhargav Redd MD Attending Clinician [phone] Beltran Christine MD Attending Clinician [phone] Abimbola Lincoln MD Attending Clinician Layo RDZ, Yony Rodas Attending Clinician Regina Ruiz Attending Clinician Unavailable Shreyas Craig DO Attending Clinician [phone] Nory RDZ, Rosalind Attending Clinician Brooks Boo MD Attending Clinician [phone] Brooks Toribio Attending Clinician Unavailable Edwardo RDZ, [...] MD KENNA LOPEZ Admitting Clinician Unavailable LAYO, GARNISHMENT SPECIALIST THUYTRAN THI Admitting Clinician Unavailable Payers Payer Name Policy Type Policy Number Effective Date Expiration Date Analy [place] - [id number] [place] [address] ([facility]) Problems Condition Condition Condition Status [...] Date Clinician No Known DA Active U 2020- [facility] Allergie 7-10 Clear s 00:00: Willson [address] [facility] No Known DA Active U 2020-0 [facility] All[facility]ie 7-10 Clear s 00:00: Willson [facility] No Known DA Active U 2019-0 [facility] Allergie 1-24 Clear s 00:00: Willson [facility] No Known DA Active U 2018-0 [facility] Allergie 5-07 Clear s 00:00: Willson [facility] No Known DA Active U 2019-0 [facility] Allergie 3-20 Clear s 00:00: Willson [facility] No Known DA Active U 2019-0 [facility] Allergie 2-13 Clear s 00:00: Willson [address] [facility] No Known DA Active U 2017- [facility] Allergie 1-27 Clear s 00:00: Willson [address] [facility] No Known DA Active U 2008-0 [facility] Contrast 3-26 [facility] Allergie 00:00: e s [address] [place] [address] No Known DA Active U 2009-0 [facility] No Known DA Active U 2008- [facility] Food 3-26 [facility] Allergie 00[facility]00: e s [facility] No Known DA Active U 2008- [facility] No Known DA Active U 2007- [facility] No Known DA Active U 2007- [facility] Family History Family Member Diagnosis Comments Start Date Stop Date Source Natural mother Cancer [facility] Natural mother Hypertension [facility] Paternal grandmother Diabetes [facility] Paternal grandmother Hypertension [facility] Paternal grandmother Stroke [facility] Natural father Hypertension [facility] Natural father Stroke [facility] Social History Social Habit Start Date Stop Date Quantity Comments Source [facility] History of tobacco Cigarette [facility] Gender identity [facility] History of Social 2023-04-02 2023-04-[address] function 00:00:00 00:00:00 Hospital Alcohol intake 2023-03-11 2023-03-11 Current [facility] 00:00:00 00:00:00 non-drinker of Hospital alcohol (finding) Tobacco use and 2022-01-02 2022-01-02 Smokeless [facility] exposure 00:00:00 00:00:00 tobacco non-user Hospital Sex Assigned At [birth year] [facility] 00:00:[facility] 00:00:00 Hospital Smoking Status Start Date Stop Date Source Ex-smoker 2022-01-02 00:00:00 2022-01-02 00:00:00 [facility] Medications Ordered Filled Start Stop Current [...] needed for mild pain. ibuprofen 3-0 Yes 800mg Q8H Take 1 Metho di [...] 3-0 2022- No follow Met hodi ISolone 603-[address] (MEDROL 00:00: 04:59 directions Hos rain DOSEPAK) 4 00 :00 l mg tablet methylPREDN 3-0 2022- No follow Met hodi ISolone 603-[address] (MEDROL 00:00: 04:59 directions Hos rain DOSEPAK) 4 00 :00 l mg tablet methylPREDN 3-0 2022- No follow Met hodi ISolone 6-03-[address] (MEDROL 00:00: 04:59 directions Hos rain DOSEPAK) 4 00 :00 l mg tablet ibuprofen 3-0 Yes 600mg Q8H Take 1 Metho di (ADVIL) 600 4-[address] MG tablet 00:00: (600 mg Hospi ta 00 total) by l mouth every 8 (eight) hours as needed for mild pain. traMADoL 2022-0 Yes [id number] 50mg Q8H Take 1 Method i (ULTRAM) [...] needed for mild pain. traMADoL 2022-0 Yes [id number] 50mg Q8H Take 1 Method i (ULTRAM) [...] needed for mild pain. traMADoL 2022-0 Yes [id number] 50mg Q8H Take 1 Method i (ULTRAM) [...] needed for mild pain. traMADoL 2022-0 Yes [id number] 50mg Q8H Take 1 Method i (ULTRAM) [...] hours as needed for mild pain. traMADoL 3-0 Yes [id number] 50mg Q8H Take 1 Method i (ULTRAM) 50 4-05 tablet (50 st mg tablet 00:00: mg total) Hos rain 00 by mouth l every 8 (eight) hours as needed for moderate pain .acute pain. amoxicillin 2022- No 1{tbl} Q.5D Take 1 M ethodi -pot 4-05 -[address] clavulanate 00:00: 04:59 mouth 2 Ho spita (Augmentin) 00 :00 (two) l 875-125 mg times a per tablet day for 7 days. amoxicillin 2022- No 1{tbl} Q.5D Take 1 M ethodi -pot 4-05 -[address] clavulanate 00:00: 04:59 mouth 2 Ho spita (Augmentin) 00 :00 (two) l 875-125 mg times a per tablet day for 7 days. amoxicillin 2022-2022- No 1{tbl} Q.5D Take 1 M ethodi -pot 4-05 -[address] clavulanate 00:00: 04:59 mouth 2 Ho spita (Augmentin) 00 :00 (two) l 875-125 mg times a per tablet day for 7 days. amoxicillin 2022-2022- No 1{tbl} Q.5D Take 1 M ethodi -pot 4-05 -[address] clavulanate 00:00: 04:59 mouth 2 Ho spita (Augmentin) 00 :00 (two) l 875-125 mg times a per tablet day for 7 days. amoxicillin 2022- No 1{tbl} Q.5D Take 1 M ethodi -pot 4-05 -[address] clavulanate 00:00: 04:59 mouth [...] hours as needed for mild pain. methocarbam 2023-0 2023- No 500mg Q.5D Take [...] a day for 5 days. predniSONE 2022-0 2022- No 40mg QD Take 4 Meth janelle (DELTASONE) 3-[address] 10 mg 00:00: 05:59 (40 mg Hospita tablet 00 :00 total) by l mouth daily for 4 days. predniSONE 2022-0 2022- No 40mg QD Take 4 Meth janelle (DELTASONE) 3-[address] 10 mg 00:00: 05:59 (40 mg Hospita tablet 00 :00 total) by l mouth daily for 4 days. predniSONE 2022-0 2022- No 40mg QD Take 4 Meth janelle (DELTASONE) 3-[address] 10 mg 00:00: 05:59 (40 mg Hospita tablet 00 :00 total) by l mouth daily for 4 days. predniSONE 2022-0 2022- No 40mg QD Take 4 Meth janelle (DELTASONE) 3-[address] 10 mg 00:00: 05:59 (40 mg Hospita tablet 00 :00 total) by l mouth daily for 4 days. predniSONE 2022-0 2022- No 40mg QD Take 4 Meth janelle (DELTASONE) 3-[address] 10 mg 00:00: 05:59 (40 mg Hospita tablet 00 :00 total) by l mouth daily for 4 days. ondansetron 2021-0 2022- No 4mg Q8H Take 1 Met [...] vomiting for up to 5 days. ondansetron 2021-2021- No 4mg Q8H Take 1 Met hodi ODT 9-26 10-02 tablet (4 st (ZOFRAN-ODT 00:00: 04:59 mg total) Hospita ) 4 MG 00 :00 by mouth l disintegrat every 8 ing tablet (eight) hours as needed for nausea or vomiting for up to 5 days. ondansetron 2021-2021- No 4mg Q8H Take 1 Met hodi ODT 9-26 10-02 tablet (4 st (ZOFRAN-ODT 00:00: 04:59 mg total) Hospita ) 4 MG 00 :00 by mouth l disintegrat every 8 ing tablet (eight) hours as needed for nausea or vomiting for up to 5 days. butalbital- 2021- No 1{tbl} Q6H Take 1 M ethodi acetaminoph 9-26 09-30 tablet by [facility] 00:00: 04:59 mouth Hospita (Esgic) 00 :00 every 6 l 50-325-40 (six) mg per hours as tablet needed for headaches for up to 3 days. butalbital- 2021- No 1{tbl} Q6H Take 1 M ethodi acetaminoph 9-26 09-[facility] mouth [facility]ospita (Esgic) 00 :00 every 6 l 50-325-40 (six) mg per hours as tablet needed for headaches for up to 3 days. butalbital- 2021- No 1{tbl} Q6H Take 1 M ethodi acetaminoph 9-26 09-30 tablet by [facility] 00:00: 04:59 mouth Hospita (Esgic) 00 [...] for up to 3 days. butalbital- 2021-0 2- No 1{tbl} Q6H Take 1 M ethodi acetaminoph 9- 09-[address] [facility] 00:00: 04:59 mouth Hospita (Esgic) 00 :00 every 6 l 50-325-40 (six) mg per hours as tablet needed for headaches for up to 3 days. metoclopram 2021-0 2- No 10mg Q8H Take 1 Met hodi jessica 8-17 08-25 tablet (10 st (REGLAN) 10 00:00: 04:59 mg total) Hospita MG tablet 00 :00 by mouth l every 8 (eight) hours as needed (headache) for up to 7 days. metoclopram 2021-0 2- No 10mg Q8H Take 1 Met hodi jessica 8-17 08-25 tablet (10 st (REGLAN) 10 00:00: 04:59 mg total) Hospita MG tablet 00 :00 by mouth l every 8 (eight) hours as needed (headache) for up to 7 days. metoclopram 2021-0 2- No 10mg Q8H Take 1 Met hodi jessica 8-17 08-25 tablet (10 st (REGLAN) 10 00:00: 04:59 mg total) Hospita MG tablet 00 :00 by mouth l every 8 (eight) hours as needed (headache) for up to 7 days. ondansetron 2021-0 2- No 4mg Q12H [...] Q12H Take 1 Met hodi (ZOFRAN) 4 03-17-21 tablet (4 st MG tablet 00:00: 04:59 [...] daily for 5 days. acetaminoph 2021- [place] [id number] 5mL Q6H Take 5 mL Methodi en [...] daily for 5 days. acetaminoph 2021-2021- [place] [id number] 5mL Q6H Take 5 mL Methodi en with 03-[address] codeine 00:00: 04:59 every 6 Hospit a (acetaminop 00 :00 (six) l hen-codeine hours as ) 120-12 needed for mg/5 mL moderate solution pain or severe pain for up to 5 days .acute pain. benzonatate 2021-0 Yes 100mg Q.16992392 Take 1 Methodi (TESSALON) 6- [id number] capsule st 100 MG 00:00: 3D (100 mg Hospita capsule 00 total) by l mouth 3 (three) times a day as needed for cough. benzonatate 2021-0 Yes 100mg Q.79070004 Take 1 Methodi (TESSALON) 6-[id number] 100 MG 00:00: 3D (100 mg Hospita capsule 00 total) by l mouth 3 (three) times a day as needed for cough. benzonatate 2022-0 Yes 100mg Q.21541871 Take 1 Methodi (TESSALON) 6-[id number] 100 MG 00:00: 3D (100 mg Hospita capsule 00 total) by l mouth 3 (three) times a day as needed for cough. benzonatate 2022-0 Yes 100mg Q.84681251 Take 1 Method[facility] (TESSALON) 6-[id number] 100 MG 00:00: 3D (100 mg Hospita capsule 00 total) by l mouth 3 (three) times a day as needed for cough. benzonatate 2022-0 Yes 100mg Q.84030102 Take 1 Method[facility] (TESSALON) 6-[id number] 100 MG 00:00: 3D (100 mg Hospita capsule 00 total) by l mouth 3 (three) times a day as needed for cough. benzonatate 2022-0 Yes 100mg Q.17762078 Take 1 Method[facility] (TESSALON) 6-[id number] 100 MG 00:00: 3D (100 mg Hospita capsule 00 total) by l mouth 3 (three) times a day as needed for cough. benzonatate 202-0 Yes 100mg Q.05492228 Take 1 Methodi (TESSALON) 6-[id number] 100 MG 00:00: 3D (100 mg Hospita capsule 00 total) by l mouth 3 (three) times a day as needed for cough. albuterol 2021-2021- No 2{puff} Q4H Inhale 2 [...] tablet hours for 7 [place] [id number] 50mg Q8H Take 1 Metho di (ULTRAM) 50 2-28 03-04 tablet (50 s t mg tablet 00:00: 05:59 mg total) Ho spita 00 :00 by mouth l every 8 (eight) hours as needed for moderate pain for up to 3 [place] [id number] 50mg Q8H Take 1 Metho di (ULTRAM) [...] pressure Heart rate 2023-04-02 16:00:00 57 /min [facility] Respiratory rate 2023-04-02 16:00:00 19 /min [facility] Oxygen saturation in 2023-04-02 16:00:00 98 /min [facility] Arterial blood by Pulse oximetry Body temperature 2023-04-02 13:30:[address] [facility] Body height 2023-04-02 12:42:[address] [facility] Body weight 2023-04-02 12:42:[address] [facility] BMI 2023-04-02 12:42:00 42.05 kg/m2 [facility] Body temperature 2023-03-11 15:18:[address] [facility] Systolic blood 2023-03-11 15:16:00 141 mm[Hg] [facility] pressure Diastolic blood 2023-03-11 15:16:00 82 mm[facility]Hg[facility] pressure Heart rate 2023-03-11 15:16:00 72 /min [facility] Respiratory rate 2023-03-11 15:16:00 18 /min [facility] Body height 2023-03-11 15:16:[address] [facility] Body weight 2023-03-11 15:16:[address] [facility] BMI 2023-03-11 15:16:00 39.36 kg/m2 [facility] Oxygen saturation in 2023-03-11 15:16:00 94 /min [facility] Arterial blood by Pulse oximetry Systolic blood 2022-06-24 02:34:48 139 mm[Hg] [facility] pressure Diastolic blood 2022-06-24 02:34:48 89 mm[Hg] [facility] pressure Heart rate 2022-06-24 02:34:48 79 /min [facility] Body temperature 2022-06-24 02:34:[address] [facility] Respiratory rate 2022-06-24 02:34:48 20 /min [facility] Oxygen saturation in 2022-06-24 02:34:48 99 /min [facility] Arterial blood by Pulse oximetry Body height 2022-06-24 00:39:[address] [facility] Body weight 2022-06-24 00:39:[address] [facility] BMI 2022-06-24 00:39:00 42.91 kg/m2 [facility] Procedures Procedure Date / Time Performing Clinician Source Performed US GALLBLADDER 2023-04-02 14:18:23 Ron Abdullahi Ho spital Abdullah H URINE CULTURE 2023-04-02 13:11:00 Ron Abdullahi spital Abdullah H CBC WITH PLATELET AND 2023-04-02 13:11:00 Sarmadchetan [facility] DIFFERENTIAL Abdullah H COMPREHENSIVE METABOLIC 2023-04-02 13:11:00 Sarmadchetan [facility] PANEL Abdullah H ESTIMATED GFR 2023-04-02 13:11:00 Ron Abdullahi spital Abdullah H URINALYSIS SCREEN AND 2023-04-02 13:10:00 Bradly [facility] MICROSCOPY, WITH REFLEX Abdullah H TO CULTURE CBC WITH PLATELET AND 2023-03-11 16:06:00 Bernadette [facility] DIFFERENTIAL COMPREHENSIVE METABOLIC 2023-03-11 16:06:00 [facility] PANEL TROPONIN T 2023-03-11 16:06:00 [facility] NT-PROBNP 2023-03-11 16:06[facility] 2023-03-11 [facility]:06[facility] 2023-03-11 16:06:00 [facility]W PORTABLE 2023-03-11 [facility] 2023-03-11 15:24:30 [facility]INE CULTURE 2022-12-01 20:20:00 Andi Lopez ospital HCG QUALITATIVE, URINE 2022-12-01 20:20:00 [facility] 2022-12-01 20:20:00 Lopez, Andi [facility] MICROSCOPY, WITH REFLEX TO CULTURE CT HEAD WO CONTRAST 2022-06-24 02:05:05 IsidroAbimbola [facility] CT CERVICAL SPINE WO 2022-06-24 02:04:53 [facility] [place] 2022-05-14 13:11:51 LayoYony [facility] BAHAI PHYSICIAN ORGANIZATION (PCP) ED REFERRAL TO [facility] [place] 2022-03-17 05:56:18 [facility] Vitaliy ORGANIZATION (PCP) ECG 12-LEAD 2022-03-17 05:38:10 [facility] spital Vitaliy ECG ED PRELIMINARY 2022-03-17 04:44:21 [facility] INTERPRETATION Vitaliy HCG QUALITATIVE, URINE 2022-03-17 03:49:00 GustaboAdolfo [facility] SCREEN XR CHEST 2 VW 2022-03-17 03:46:[facility] A STREP, RAPID 2022-03-17 03:32:00 [facility] ANTIGEN Vitaliy INFLUENZA ANTIGEN 2022-03-17 03:32:00 [facility] Vitaliy RESPIRATORY PATHOGEN 2022-03-17 03:32:00 [facility] PANEL WITH COVID-19 Vitaliy RT-PCR STREP SCREEN CULTURE 2022-03-17 03:32:00 [facility] Vitaliy XR CHEST 2 VW 2022-03-03 13:27:46 [facility] INFLUENZA ANTIGEN 2022-03-03 13:02:00 [facility] RESPIRATORY PATHOGEN 2022-03-03 13:02:00 [facility] PANEL WITH COVID-19 RT-PCR ECG ED PRELIMINARY 2022-03-03 12:53:04 Rosalind Cueto [facility] INTERPRETATION ECG 12-LEAD 2022-03-03 12:42:43 [facility] Plan of Care Planned Activity Planned Date Details Comments Source Future Scheduled 2023-07-13 Hepatitis C screening [facility] Test 17:35:35 (procedure) [code = 978098374] Future Scheduled 2023-07-13 [facility] Test 17:35:35 malignant neoplasm of cervix (procedure) [code = 511567271] Future Scheduled 2023-07-13 COVID-19 VACCINE (2 - [facility] Test 17:35:35 season) [code = COVID-19 VACCINE (2 - season)] Future Scheduled 2023-07-13 [facility] 17:35:35 [code = INFLUENZA VACCINE (#1)] Future Scheduled 2023-07-13 RSV VACCINES > 60 YR [facility] Test 17:35:35 (1 - 1-dose 60+ series) [code = RSV VACCINES > 60 YR (1 - 1-dose 60+ series)] Future Scheduled 2023-05-31 [facility] 09:51:19 (procedure) [code = 882734111] Future Scheduled 2023-05-31 [facility] Test 09:51:19 malignant neoplasm of cervix (procedure) [code = 663865352] Future Scheduled 2023-05-31 COVID-19 [facility]ACCINE [facility] 09:51:19 Pfizer series) [code = COVID-19 VACCINE (2 - Pfizer series)] Future Scheduled 2023-05-31 INFLUENZA VACCINE (#1) [facility] Test 09:51:19 [code = INFLUENZA VACCINE (#1)] Future Scheduled 2023-05-31 [facility] 09:51:19 (procedure) [code = 868823558] Future Scheduled 2023-05-31 [facility] Test 09:51:19 malignant neoplasm of cervix (procedure) [code = 057835515] Future Scheduled 2023-05-31 COVID-19 VACCINE (2 - [facility] Test 09:51:19 Pfizer series) [code = COVID-19 VACCINE (2 - Pfizer series)] Future Scheduled 2023-05-31 [facility]INE (#[facility] 09:51:19 [code = INFLUENZA VACCINE (#1)] Future Scheduled 2023-05-31 [facility] Test 09:51:19 (procedure) [code = 577954035] Future Scheduled 2023-05-31 [facility] Test 09:51:19 malignant neoplasm of cervix (procedure) [code = 586608440] Future Scheduled 2023-05-31 COVID-19 VACCINE (2 - [facility] Test 09:51:19 Pfizer series) [code = COVID-19 VACCINE (2 - Pfizer series)] Future Scheduled 2023-05-31 INFLUENZA VACCINE (#1) M [facility] Test 09:51:19 [code = INFLUENZA VACCINE (#1)] Future Scheduled 2023-03-27 Hepatitis C screening [facility] Test 01:47:07 (procedure) [code = 747327205] Future Scheduled 2023-03-27 [facility] Test 01:47:07 malignant neoplasm of cervix (procedure) [code = 879994386] Future Scheduled 2023-03-27 COVID-19 VACCINE (2 - [facility] Test 01:47:07 Pfizer series) [code = COVID-19 VACCINE (2 - Pfizer series)] Future Scheduled 2023-03-27 INFLUENZA VACCINE [facility] Test 01:47:07 [code = INFLUENZA VACCINE] Future Scheduled 2022-09-18 Pneumococcal Vaccine: [facility] Test 14:43:59 Pediatrics (0 to 5 Years) and At-Risk Patients (6 to 64 Years) (1 - PCV) [code = Pneumococcal Vaccine: Pediatrics (0 to 5 Years) and At-Risk Patients (6 to 64 Years) (1 - PCV)] Future Scheduled 2022-09-18 Hepatitis C screening [facility] Test 14:43:59 (procedure) [code = 929444267] Future Scheduled 2022-09-18 Screening for [facility] Test 14:43:59 malignant neoplasm of cervix (procedure) [code = 984573791] Future Scheduled 2022-09-18 COVID-19 VACCINE (2 - [facility] Test 14:43:59 Pfizer series) [code = COVID-19 VACCINE (2 - Pfizer series)] Future Scheduled 2022-09-18 INFLUENZA VACCINE [facility] Test 14:43:59 [code = INFLUENZA VACCINE] Future Scheduled 2022-07-31 HEPATITIS B VACCINES Met [facility] Test 16:34:59 (1 of 3 - 3-dose series) [code = HEPATITIS B VACCINES (1 of 3 - 3-dose series)] Future Scheduled 2022-07-31 Pneumococcal Vaccine: [facility] Test 16:34:59 Pediatrics (0 to 5 Years) and At-Risk Patients (6 to 64 Years) (1 - PCV) [code = Pneumococcal Vaccine: Pediatrics (0 to 5 Years) and At-Risk Patients (6 to 64 Years) (1 - PCV)] Future Scheduled 2022-07-31 Hepatitis C screening [facility] Test 16:34:59 (procedure) [code = 053573649] Future Scheduled 2022-07-31 [facility] Test 16:34:59 malignant neoplasm of cervix (procedure) [code = 385374857] Future Scheduled 2022-07-31 COVID-19 VACCINE (2 - [facility] Test 16:34:59 Pfizer series) [code = COVID-19 VACCINE (2 - Pfizer series)] Future Scheduled 2022-07-31 INFLUENZA VACCINE [facility] Test 16:34:59 [code = INFLUENZA VACCINE] Encounters Start End Encounter Admission Attending Care Care Encounter Source Date/Time Date/Time Type Type Clinicians Facility Department ID 2023-03-27 Outpatient BUSYB BUSYB [id number] [facility] 09:05:05 [id number] [facility] 2019-10-21 Inpatient [facility]ERS [id number] [facility] 19:27:00 60 [facility] 2023-07-17 2023-07-17 Outpatient GC_GCBZW_Ka PRIV PRIV [id number] [facility] 00:00:00 00:00:00 diyala_S [id number] Medic al 2023-07-14 2023-07-14 Outpatient JAYY HOPE [id number] Jose 10:31:49 10:31:49 [id number] F David 2023-06-02 2023-06-02 Outpatient GC_GCBZW_Ka PRIV PRIV [id number] [facility] 00:00:00 00:00:00 diyala_S [id number] Medic al 2023-04-02 2023-04-02 Emergency Stephiejermainregan, 1.2.840.1 [id number] [facility] 07:37:00 12:18:00 Ron [id number] 034 [place] [facility] 3.430.2.7 Hos rain .3.444804 l .8 2023-04-02 2023-04-02 Emergency Bradly, 1.2.840.1 [id number] 21 [id number] [facility] 07:37:00 12:18:[address] Samuel H 3.430.2.7 Hos rain .3.937681 l .8 2023-04-02 2023-04-02 Outpatient RICKEYALVIN ADDISONELYSSA [id number] [facility] 00:00:00 00:00:00 AAYUSH [facility] 2023-03-11 2023-03-11 Emergency David Becker 1.2.840.1 [id number] [facility] 10:05:00 12:06:[address] 3.430.2.7 Hospit a .3.989593 l .8 2023-03-11 2023-03-11 Emergency David Becker 1.2.840.1 [id number] 2 [id number] [facility] 10:05:00 12:06:[address] 3.430.2.7 Hospit a .3.284618 l .8 2022-12-31 2022-12-31 Emergency Traceyani, 1.2.840.1 [id number] 2 [id number] Methodi 12:48:00 15:01:00 Bhargav Rodas [address] 3.430.2.7 Hospit a .3.824370 l .8 2022-12-31 2022-12-31 Emergency Malloryignani, 1.2.840.1 [id number] 2 [id number] [facility]i 12:48:00 15:01:00 Bh[address] 3.430.2.7 Hospit a .3.672568 l .8 2022-12-31 2022-12-31 Travel 1.2.840.1 1.2.185.145 [id number] Methodi 00:00:00 00:00:[address] 3.430.2.7 0.2.7.3.698 Ho spita .3.986563 084.8 l .8 2022-12-31 2022-12-31 Travel 1.2.840.1 1.2.033.831 [id number] Methodi 00:00:00 00:00:[address] 3.430.2.7 0.2.7.3.698 Ho spita .3.246145 084.8 l .8 2022-12-01 2022-12-01 Emergency Christine, 1.2.840.1 [id number] [facility] 14:02:00 16:47:[address] [place] 3.430.2.7 Hospi ta .3.049294 l .8 2022-12-01 2022-12-01 Emergency Christine, 1.2.840.1 [id number] [facility] 14:02:00 16:47:[address] [place] 3.430.2.7 Hospi ta .3.459728 l .8 2022-12-01 2022-12-01 Travel 1.2.840.1 1.2.281.888 [id number] Methodi 00:00:00 00:00:[address] 3.430.2.7 0.2.7.3.698 Ho spita .3.814446 084.8 l .8 2022-12-01 2022-12-01 Travel 1.2.840.1 1.2.807.216 5142 [id number] Methodi 00:00:00 00:00:[address] 3.430.2.7 0.2.7.3.698 Ho spita .3.726599 084.8 l .8 2022-06-23 2022-06-24 Emergency Isidro, 1.2.840.1 [id number] Methodi 20:41:00 06:17:00 Abimbola H [address]21.1.[address] 3.430.2.7 Hospit a .3.849068 l .8 2022-06-23 2022-06-23 Travel 1.2.840.1 1.2.822.953 9549 422591 Methodi 00:00:00 00:00:[address] 3.430.2.7 0.2.7.3.698 Ho spita .3.442427 084.8 l .8 2022-05-14 2022-05-14 Emergency Fragoso, 1.2.840.1 [id number] 2099 876500 Methodi 08:02:00 08:37:00 [place] [address]673.[address] [place] 3.430.2.7 Hospit a .3.854192 l .8 2022-05-14 2022-05-14 Travel 1.2.840.1 1.2.150.315 8002 388309 Methodi 00:00:00 00:00:[address] 3.430.2.7 0.2.7.3.698 Ho spita .3.936323 084.8 l .8 2022-05-05 2022-05-05 Emergency EM Dark, Regina HCACL CHASITY G001 [id number] [facility] 09:09:00 09:40:00 47 [facility] 2022-05-05 2022-05-05 Emergency EM Dark, Regina HCACL HCACL G684 430-20 [facility] 09:09:00 09:40:00 687252 [facility] 2022-03-16 2022-03-17 Emergency Kendig, 1.2.840.1 [id number] 2099 884299 Methodi 22:26:00 01:14:[address] Mehran 3.430.2.7 Hosp kerry .3.206429 l .8 2022-03-03 2022-03-03 Emergency Adelso 1.2.840.1 [id number] Methodi 07:35:00 09:19:00 [address] 3.430.2.7 Hospit a .3.800615 l .8 2022-01-02 2022-01-02 Emergency de Hernandez, 1.2.840.1 [id number] 21 [id number] Methodi 17:02:00 18:15:[address] Rhett 3.430.2.7 Hospit a .3.345226 l .8 2022-01-02 2022-01-02 Travel 1.2.840.1 1.2.132.902 6032 740968 Methodi 00:00:00 00:00:[address] 3.430.2.7 0.2.7.3.698 Ho spita .3.138828 084.8 l .8 2021-12-26 2021-12-26 Emergency EM Catarino, HCACL CHASITY S499996- 20 [facility] 09:46:00 12:31:00 Christopher [id number] Cl [facility] 2021-12-26 2021-12-26 Emergency EM Catarino, HCACL HCACL [id number] [facility] 09:46:00 12:31:00 Christopher 88 Cl [facility] 2021-11-25 2021-11-26 Emergency Edwardo, 1.2.840.1 [id number] 2100 085804 Methodi 22:58:00 00:58:[address] Ganga 3.430.2.7 Hospit a .3.396748 l .8 2021-04-10 2021-04-10 Emergency EDWARDO, [facility] [id number] [place] [address] 00:00:00 00:00:00 ANDI Hurt [facility] 2021-04-05 2021-04-06 Emergency EM Tello, HCACL CHASITY [id number] -20 [facility] 23:38:00 02:26:00 [place] 183188 [facility] 2021-03-12 2021-03-12 Emergency EARL, [place] [address] [id number] 47 [place] 00:00:00 00:00:00 KALIF [address] 2021-02-27 2021-02-28 Inpatient JENN, [place] [address] 180 [id number] 769 [place] 00:00:00 00:00:00 QUENTIN [address] 2021-02-16 2021-02-16 Emergency LOPEZ, [place] [address] [id number] 38 [place] 00:00:00 00:00:00 ANDI [address] 2020-12-28 2020-12-28 Emergency ISIDRO, [place] [address] 166 [id number] 558 [place] 00:00:00 00:00:00 ABIMBOLA [address] 2020-07-14 2020-07-14 Emergency EDWARDO, [place] [address] [id number] 48 [place] 00:00:00 00:00:00 ANDI [address] 2020-05-15 2020-05-15 Emergency JOAO, [place] [address] [id number] 8208 [place] 00:00:00 00:00:00 BELTRAN [address] 2020-04-28 2020-04-28 Emergency GLEN, [place] [address] [id number] 90 [place] 00:00:00 00:00:00 KIMBERLY [address] 2020-02-18 2020-02-18 Emergency VANDER [place] [address] [id number] 64 [place] 00:00:00 00:00:00 VITALIY, [address] Results Test Description Test Time Test Comments Results Result Comments Source ECG 12 lead 2023-05-11 20:45:47 Test Item Value Reference Range Interpretation Comme nts Ventricular rate (test code = 253) 68 Atrial rate (test code = 255) 68 RI interval (test code = 266) 162 QRSD [...] of 17-MAR-2022 00:38,-No [id number] 20:45:47 Test Item Value Reference Range Interpretation Comments Ventricular rate (test 68 code = 253) Atrial rate (test code 68 = 255) RI interval (test code 162 = 266) QRSD [...] of 17-MAR-2022 00:38,-No significant change was found- [address]2023-08-14 20:45:47 Test Item Value Reference Range Interpretation Comments Ventricular rate (test 68 code = 253) Atrial rate (test code 68 = 255) RI interval (test code 162 = 266) QRSD [...] of 17-MAR-2022 00:38,-No significant change was found- [address]2023-08-14 20:45:47 Test Item Value Reference Range Interpretation Comments Ventricular rate (test 68 code = 253) Atrial rate (test code 68 = 255) RI interval (test code 162 = 266) QRSD [...] of 17-MAR-2022 00:38,-No significant change was found- [facility]2023-07-06 14:05:00 Test Item Value Reference Range Interpretation Comments Urine culture (test SEE COMMENT Bacteriu kp screen code = 8717256) negative. [facility]2023-07-06 14:05:00 Test Item Value Reference Range Interpretation Comments Urine culture (test SEE COMMENT Bacteriu pk screen code = 5205727) negative. [facility]2023-07-06 14:05:00 Test Item Value Reference Range Interpretation Comments Urine culture (test SEE COMMENT Bacteriu kp screen code = 6889512) negative. [facility]2023-07-06 14:05:00 Test Item Value Reference Range Interpretation Comments Urine culture (test SEE COMMENT Bacteriu kp screen code = 5020087) negative. [address]2022-06-29 20:01:10 Test Item Value Reference Range Interpretation Comments Ventricular rate (test code = 253) Atrial rate (test code = 255) RI interval (test code = 266) QRSD interval [...] of 03-MAR-2022 07:42,-No significant change was found- [address]2022-06-29 20:01:10 Test Item Value Reference Range Interpretation Comments Ventricular rate (test code = 253) Atrial rate (test code = 255) RI interval (test code = 266) QRSD interval [...] of 03-MAR-2022 07:42,-No significant change was found- [facility] screen [id number] 11:15:00 Test Item Value Reference Range Interpretation Comments Strep screen No beta hemolytic Specimen culture Streptococci InformationSpec imen isolate (test isolated Source: Throat Specimen code = 547-0) Site: [facility] screen [id number] 11:15:00 Test Item Value Reference Range Interpretation Comments Strep screen No beta hemolytic Specimen culture Streptococci InformationSpec imen isolate (test isolated Source: Throat Specimen code = 547-0) Site: [facility]- XR WRIST 3 + V [id number] 00:00:00 [facility] : 1990 Sex: F FAX: Winnie Martinez [facility] [phone] [place]: [address] St: REG Name: REYNA EARLY [facility] : 1990 Age/S: 31/F [address] [place] [address] Unit #: [id number] Loc: [place] [address] Phys: Winnie Begum Acct: [id number] Dis Date: Status: REG ER PHONE #: [phone] Exam Date: FAX #: [phone] Reason: wrist pain EXAMS: CPT CODE: [id number] XR WRIST 3 + [place] LT 75584 PROCEDURE INFORMATION: Exam: XR Left Wrist Exam date and time: 12/26/2021 10:15 AM Age: 31 years old Clinical indication: Other: Wrist pain TECHNIQUE: Imaging protocol: XR Left wrist. Views: 3 or more views.Frontal Oblique Lateral COMPARISON: No relevant prior studies available. FINDINGS: Bones/joints: There is no fracture or dislocation. The joint spaces are maintained. Soft tissues: Unremarkable. Thereare no radiopaque foreign bodies. Notes: If there is further concern, follow-up radiographs, CT or MRI may be obtained for complete assessment. IMPRESSION: Normal radiographs. at 1120 Reported and signed by: Kendrick Watkins M.D.CC: Winnie Begum Technologist: RT Olivia(Ronit) Trnscrd Date/Time/By: 12/26/2021 (112) : By: Jase Orig Print D/T: S: 12/26/2021 (1121) PAGE 1 Signed Report- XR CHEST 1 [id number] 00:48:00 [facility] : 1990 Sex: F FAX: Torrey Javed MD [phone] [place]: St: REG FAX: Anca Smyth APR [phone] - Name: REYNA EARLY [facility] [place] : 1990 Age/S: 30/F [address] [place] [address] Unit #: [id number] Loc:[place] [address] Phys: Anca Smyth Acct: [id number] Dis Date: Status: REG ER PHONE #: [phone] Exam Date: 04/06/202141 FAX #: [phone] Reason: cough EXAMS: CPT CODE: [id number] XR CHEST 1 V 99869 Study: - XR CHEST 1 V 04/06/2021 12:21 AM Patient Name: REYNA EARLY MR: [id number] : 1990; Age: 30 years y/o Female [...] Smyth Technologist: RT Magalie(Ronit) Trnscrd Date/Time/By: 04/06/2021 (0048) : By: [email or web address] Orig Print D/T: S: 04/06/2021 (0051) PAGE 1 Signed Report Coronavirus 2019 nCoV [id number] 00:35:00 Test Item Value Reference Range Interpretation Comments Coronavirus 2019 NEGATIVE Negative Negative re sults should be nCoV Bedside (test treated a s presumptive and, code = ifinconsistent with [id number]) clinical signs and symptoms or necessaryfor patient management, nancy uld be tested with an alternativemole cular assay. Negative result s do not preclude YOQP-WxN-8vacfa tion and should not be u sed as the sole basis forp atient management deci sions. Negative result s should beconsidered in the context of a patient's recent exposures,histo ry, presence of clinical sig ns and symptoms consis tentwith COVID-19. 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 employed in a healthcare setting (test code = 49202-3) Whether the patient has symptoms related to condition of interest (test code = 48690-9) Patient was hospitalized because of this condition (test code = 14984-2) Whether the patient was admitted to intensive care unit (ICU) for condition of interest (test code = 10460-5) Whether patient resides in a congregate care setting (test code = 64264-7) [facility] (COVID-19) RNA [Presence] in Respiratory specimen by KEENAN with probe [id number] 01:13:01 Test Item Value Reference Range Interpretation Comments SARS-CoV-2 (COVID-19) RNA Not detected Not-Detected [Presence] in Respiratory specimen by KEENAN with probe detection (test code = 53933-3) [facility]- XR CHEST 2 [id number] 20:09:00 Name: NNEKAREYNA BANG [facility] : 1990 Age/S:29 /F [address] [facility] Unit#:[id number] Loc: [place] [address] Phys: Enrico Davies MD Dis Date: PHONE #: [phone] Status: REG ER FAX #: [phone] Exam Date: 10/21/2019 Reason:cough EXAMS: CPT CODE: [id number] XR CHEST 2 V 55174 REASON FOR EXAM: cough Exam Order Date: [...] SALMA MARCIAL RT(R),RDMS,CT Trnscrpt Data: 10/21/2019 (2008) t.BRUCE.VTL Orig Print D/T: S: 10/21/2019 (2011) PAGE 1 Signed ReportCAPILLARY BLOOD [id number] 18:20:00 Test Item Value Reference Range Interpretation Comments TOTAL CO2 CONTENT TEST NOT 24.0-30.0 N Previously reported (test code = TCO2) PERFORMED MMOL/L resul t: 29.0 MMOL/LEdited by : THOMAS on 02/01/19:410890 9 1808: TCO2 previously repo rted as: 29.0 MMOL/L CAPILLARY BLOOD TEST NOT 7.33-7.45 Previously r eported GAS PH (test code PERFORMED result: 7. 22 Edited = PHC) by: THOMAS o n 02/01/19:1807 02/01/19 180: CBG PH previously reported as: 7. [...] by : THOMAS on 02/01/19: 9 1807: HCO3C previously repo rted as: 27 H [...] by GAS PEEP (test PERFORMED cmH2O certified calender operator helper code = PEEPC) [facility] reported result : [id number] by: [email or web address] on 03/07/19:1820 061819: PEEP previously repo rted as: cmH2O Perfo rmed by certified calender operator helper [facility] reported result : 7 [id number] by: THOMAS on 02/01/19: 9 1808: PEEP previously repo rted as: 7 cmH2O Performed by certified opera tor at [facility] CBG TEMPERATURE TEST NOT Previously r eported (test code = PERFORMED F result: 98.0 FE dited TEMPC) by: THOMAS o n 02/01/19:1808: TEMPC previously repo rted as: 98.0 F CAPILLARY BLOOD TEST NOT Previously r eported GAS SITE (test PERFORMED result: Heel Edited code = SITEC) by: THOMAS on 02/01/19:1808: SITE previously repo rted as: Heel VENOUS BLOOD [id number] 18:19:00 Test Item Value Reference Range Interpretation [...] y PEEP (test code PERFORMED cmH2O certified calender operator helper at = PEEPV) [facility]Previously reported result : [id number] by: SERGIO on 03/07/19:181803/07/191818: VBG PEEP previously reported as: cm H2O Performed by certified opera tor at [facility]Previously reported result : 5 gqJ3BLhmyrw by: THOMAS on 02/01/19:180902/01/191809: VBG PEEP previously reported as: 5 cmH2O Performed by certified opera tor at [facility] VENOUS BLOOD GAS TEST NOT Previously reported TEMP (test code PERFORMED F result: 97.6 FEdited = TEMPV) by: THOMAS o n 02/01/19:533978 /07/19 1810: TEMPV previously repo rted as: 97.6 F VENOUS BLOOD GAS Other SITE (test code = SITEV) VENOUS TCO2 TEST NOT Previously repo rted (test code = PERFORMED result: 29 Edit ed by: TCO2V) MADHAVDJF on 02/01/19: 1810: TCO2V previously repo rted as: 29 - CT ABD PELVIS [id number] 00:56:00 Name: REYNA EARLY [facility] : 1990 Age/S: 28 / F [address] [place] [address] Bl Unit #: [id number] Loc: [place] [address] Phys: Winnie Begum SENIOR RADIATION PROTECTION TECHNICIAN Acct: [id number] Dis Date: Status: REG ER PHONE #: [phone] Exam Date: 02/07/2019 0037 FAX #: [phone] Reason: s/p , upper abd pain and fevers. EXAMS: CPT CODE: [id number] CT ABD PELVIS W/CONT 58409 EXAM: CT,CT ABDOMEN PELVIS W CONTRAST: 02/07/2019, 0039 hours [...] 1 Signed Report (CONTINUED) Name: REYNA EARLY LakeDOB: 1990 Age/S: 28 / F [address] [place] [address] Unit #: [id number] Loc: [place] [address] Phys: Winnie Begum SENIOR RADIATION PROTECTION TECHNICIAN Acct: [id number] Dis Date: Status: REG ER PHONE #: [phone] Exam Date: 02/07/2019 0037 FAX #: [phone] Reason: s/p c- section, upper abd pain and fevers. EXAMS: CPT CODE: [id number] CT ABD PELVIS W/CONT 35370 (Continued) slight anterior listhesis of L5 on S1. Mild dege nerative changes at L5-S1. SOFT TISSUES: Mild bilateral [...] Technologist:RT Tigre(R) CTDI: DLP: Trnscb Date/Time: 02/07/2019 (55) Guzman.JS38 Orig Print D/T: S: 02/07/2019 (58) PAGE 2 Signed Report COMPREHENSIVE METABOLIC [id number] 23:40:00 Test Item Value Reference Range Interpretation [...] TOTAL (test code = ALKP) COMPREHENSIVE METABOLIC [id number] 23:36:00 Test Item Value Reference Range Interpretation [...] TOTAL (test code = ALKP) CBC W/AUTO [id number] 23:33:00 Test Item Value Reference Range Interpretation [...] REQUIRED (test NO code = MDIFF) SURGICAL [id number] 08:10:00 RUN DATE: 02/04/19 [place] [facility] *LIVE* PAGE 1 RUN TIME: 0810 Specimen Inquiry RUN USER: INTERFACE --------- ---PATIENT: REYNA EARLY LOC: [facility] U #: [id number] AGE/SX: 28/F ROOM: [facility] RE02/01/19OLY DR: Gabriel Torres MD : [birth year] BED: 1 DIS: STATUS: ADM IN TLOC: SPEC #: [id number] RECD: 02/02/19 STATUS: NASIM RUSSO #: [id number] [place]: 02/02/[address] [facility] [address]: Gabriel Torres MD ENTERED: 02/03/19 SP TYPE: SURG SPEC OTHR DR: Self Referred Erick Carbajal MD, JR, Patrick MDORDERED:GM LEVEL 4 CODES: [id number] - FALLOPIAN TUBE OM7904 - PLACENTA, NOS COPIES TO: Self Referred Gabriel Torres MD [address] [place] [address] [id number] [email or web address] Erick Carbajal MD [address] [address] [email or web address] Roderick Daniel JR, MD [address] [address] PROCEDURES: GM LEVEL 4 (Incomplete) [...] CONTINUED ON NEXT PAGE RUN DATE: 02/04/19 [place] *LIVE* PAGE 2 RUN TIME: 809 Specimen Inquiry RUN USER: INTERFACE SPEC #: [id number] PATIENT: REYNA EARLY #[id number] (Kate nued) GROSS AND MICROSCOPIC GROSS EXAMINATION: [...] diameter fallopian tube (F). Received in formalin labe led left fallopian tube is a 5 cm [...] SIGNATURE ON FILE Domenico Sherwood Erick MOORE 02/04/19809 END OF REPORT CBC W/AUTO [id number] 07:37:00 Test Item Value Reference Range Interpretation [...] MDIFF) COMMENTS: POD #1 and #2COMPREHENSIVE METABOLIC [id number] 05:40:00 Test Item Value Reference Range Interpretation [...] code = ALKP) COMMENTS: POD #1CBC W/AUTO [id number] 05:36:00 Test Item Value Reference Range Interpretation [...] MDIFF) COMMENTS: POD #1 and #2VENOUS BLOOD [id number] 18:10:00 Test Item Value Reference Range Interpretation [...] med by certified (test code = PEEPV) calender operator helper [facility]Previous ly reported result : 5 qxD5PJnnnke by: THOMAS on 02/01/19:181 02/01/191809: VBG PEEP previously reported as: 5 cmH2O Performed by ce rtified calender operator helper at [facility] VENOUS BLOOD GAS TEMP F Previo usly reported (test code = TEMPV) result: 97.6 FEdited by: THOMAS on 02/01/19:1809: TEMPV pre viously reported as: 97 .6 F VENOUS BLOOD GAS SITE Other (test code = SITEV) VENOUS TCO2 (test Previously reported code = TCO2V) result: 29 Gamal lon by: THOMAS on 02/01/19:1809: TCO2V pre viously reported as: 29 CAPILLARY BLOOD [id number] 18:09:00 Test Item Value Reference Range Interpretation [...] d by certified PEEP (test code = calender operator helper a t [place] [facility] Med CtrPrevious ly reported result : 7 [id number] by: THOMAS on 02/01/19:1808: PEEP prev iously reported as: 7 cmH2O Performed by ce rtified calender operator helper at [facility] CBG TEMPERATURE (test F Previo usly reported code = TEMPC) result: 98.0 F Edited by: THOMAS on 02/01/19:1808: TEMPC pre viously reported as: 98 .0 F CAPILLARY BLOOD GAS Previous ly reported SITE (test code = result: He el Edited by: SITEC) THOMAS on 02/01/19:1808: SITE prev iously reported as: Edgar el CAPILLARY BLOOD [id number] 17:48:00 Test Item Value Reference Range Interpretation [...] d by PEEP (test code = certified calender operator helper PEEPC) at [facility] CBG TEMPERATURE (test 98.0 F code = TEMPC) CAPILLARY BLOOD GAS Heel SITE (test code = SITEC) VENOUS BLOOD [id number] 14:27:00 Test Item Value Reference Range Interpretation [...] by (test code = PEEPV) certifie d calender operator helper at [facility] VENOUS BLOOD GAS TEMP 97.6 F (test code = TEMPV) VENOUS BLOOD GAS SITE Other (test code = SITEV) VENOUS TCO2 (test 29 code = TCO2V) CORD ARTERIAL BLOOD [id number] 14:03:00 Test Item Value Reference Range Interpretation [...] O2S/C) 9 % 25-45 L COMPREHENSIVE METABOLIC [id number] 17:24:00 Test Item Value Reference Range Interpretation [...] N TOTAL (test code = ALKP) URIC [id number] 17:24:00 Test Item Value Reference Range Interpretation Comments URIC ACID (test code = URIC) 4.6 mg/dL 2.6-7.2 N LACTIC DEHYDROGENASE(LDH)2019-01-31 17:24:00 Test Item Value Reference Range Interpretation Comments LACTIC DEHYDROGENASE(LDH) (test 154 IUnits/L 84-246 N code = LDH) URINALYSIS [id number] 17:09:00 Test Item Value Reference Range Interpretation [...] MUCU) TRACE /LPF NONE SEEN CBC W/AUTO [id number] 17:04:00 Test Item Value Reference Range Interpretation [...] (test NO code = MDIFF) COMPREHENSIVE METABOLIC [id number] 23:53:00 Test Item Value Reference Range Interpretation [...] N TOTAL (test code = ALKP) URIC [id number] 23:53:00 Test Item Value Reference Range Interpretation Comments URIC ACID (test code = URIC) 4.2 mg/dL 2.6-7.2 N LACTIC DEHYDROGENASE(LDH)2019-01-26 23:53:00 Test Item Value Reference Range Interpretation Comments LACTIC DEHYDROGENASE(LDH) (test 144 IUnits/L 84-246 N code = LDH) DRUGS OF ABUSE SCREEN [id number] 23:45:00 Test Item Value Reference Range Interpretation [...] ed for non-medical pur poses. AMNISURE (ROM) [id number] 23:43:00 Test Item Value Reference Range Interpretation Comments AMNISURE (ROM) TEST (test NEGATIVE NEGATIVE OP ENED:12/05/2018 code = AMNI) COMPREHENSIVE METABOLIC [id number] 23:39:00 Test Item Value Reference Range Interpretation [...] 20-125 TOTAL (test code = ALKP) URIC [id number] 23:39:00 Test Item Value Reference Range Interpretation Comments URIC ACID (test code = URIC) 4.2 mg/dL 2.6-7.2 N LACTIC DEHYDROGENASE(LDH)2019-01-26 23:39:00 Test Item Value Reference Range Interpretation Comments LACTIC DEHYDROGENASE(LDH) (test IUnits/L 84-246 code = LDH) DRUGS OF ABUSE SCREEN [id number] 23:36:00 Test Item Value Reference Range Interpretation [...] us ed for non-medical pur poses. URINALYSIS [id number] 23:31:00 Test Item Value Reference Range Interpretation [...] MUCU) TRACE /LPF NONE SEEN CBC W/AUTO [id number] 23:26:00 Test Item Value Reference Range Interpretation [...] REQUIRED (test NO code = MDIFF) URINALYSIS [id number] 14:32:00 Test Item Value Reference Range Interpretation [...] MUCU) TRACE /LPF NONE SEEN COMPREHENSIVE METABOLIC [id number] 14:30:00 Test Item Value Reference Range Interpretation [...] N TOTAL (test code = ALKP) URIC [id number] 14:30:00 Test Item Value Reference Range Interpretation Comments URIC ACID (test code = URIC) 4.3 mg/dL 2.6-7.2 N LACTIC DEHYDROGENASE(LDH)2019-01-20 14:30:00 Test Item Value Reference Range Interpretation Comments LACTIC DEHYDROGENASE(LDH) (test 128 IUnits/L 84-246 N code = LDH) COMPREHENSIVE METABOLIC [id number] 14:20:00 Test Item Value Reference Range Interpretation [...] 20-125 TOTAL (test code = ALKP) URIC [id number] 14:20:00 Test Item Value Reference Range Interpretation Comments URIC ACID (test code = URIC) 4.3 mg/dL 2.6-7.2 N LACTIC DEHYDROGENASE(LDH)2019-01-20 14:20:00 Test Item Value Reference Range Interpretation Comments LACTIC DEHYDROGENASE(LDH) (test IUnits/L 84-246 code = LDH) CBC W/AUTO [id number] 14:06:00 Test Item Value Reference Range Interpretation [...] (test NO code = MDIFF) RAPID PLASMA [id number] 12:19:00 Test Item Value Reference Range Interpretation Comments RAPID PLASMA REAGIN (test code = NONREACTIVE NONREACTIVE RPR) AG HEPATITIS B [id number] 12:19:00 Test Item Value Reference Range Interpretation Comments AG HEPATITIS B SURFACE NON REACTIVE INDEX NonReactive (test code = HBSAG) AB HIV 1 12:19:00 Test Item Value Reference Range Interpretation Comments AB HIV 1 2 (test code = NONREACTIVE INDEX NONREACTIVE DAV71AN) COMPREHENSIVE METABOLIC [id number] 05:49:00 Test Item Value Reference Range Interpretation [...] N TOTAL (test code = ALKP) URIC [id number] 05:49:00 Test Item Value Reference Range Interpretation Comments URIC ACID (test code = URIC) 4.4 mg/dL 2.6-7.2 N LACTIC DEHYDROGENASE(LDH)2019-01-08 05:49:00 Test Item Value Reference Range Interpretation Comments LACTIC DEHYDROGENASE(LDH) (test 110 IUnits/L 84-246 N code = LDH) COMPREHENSIVE METABOLIC [id number] 05:43:00 Test Item Value Reference Range Interpretation [...] 20-125 TOTAL (test code = ALKP) URIC [id number] 05:43:00 Test Item Value Reference Range Interpretation Comments URIC ACID (test code = URIC) 4.4 mg/dL 2.6-7.2 N LACTIC DEHYDROGENASE(LDH)2019-01-08 05:43:00 Test Item Value Reference Range Interpretation Comments LACTIC DEHYDROGENASE(LDH) (test IUnits/L 84-246 code = LDH) URINALYSIS [id number] 05:35:00 Test Item Value Reference Range Interpretation [...] = 1+ /HPF NONE A YEASTUBD) URINALYSIS [id number] 05:33:00 Test Item Value Reference Range Interpretation [...] 1+ /HPF NONE A YEASTUBD) CBC W/AUTO [id number] 05:25:00 Test Item Value Reference Range Interpretation [...] (test code NO = MDIFF) - [place] [id number] 00:53:00 Name: REYNA EARLY : 1990 Age/S: 28 / F [address] [place] [address] Unit #: [id number] Loc: [place] [address] Phys: Jayme Christianson MD Acct: [id number] Dis Date: Status: ADM IN PHONE #: [phone] Exam Date: 01/07/2019 0009 FAX #: [phone] Reason: Hardto find FHT EXAMS: CPT CODE: [id number] [place] L[place] 39333 EXAM: , LTD: 01/07/2019,2356 hours History: . Vaginal bleeding. [...] (005) [email or web address] Orig Print D/T: S: 01/08/2019 (005) Probe: PAGE 1 Signed ReportRAPID PLASMA [id number] 21:20:00 Test Item Value Reference Range Interpretation Comments RAPID PLASMA REAGIN (test code = RPR) NONREACTIVE AG HEPATITIS B [id number] 21:20:00 Test Item Value Reference Range Interpretation Comments AG HEPATITIS B SURFACE NON REACTIVE INDEX NonReactive (test code = HBSAG) AB HIV 1 21:20:00 Test Item Value Reference Range Interpretation Comments AB HIV 1 2 (test code = NONREACTIVE INDEX NONREACTIVE [id number]) RAPID PLASMA [id number] 16:37:00 Test Item Value Reference Range Interpretation Comments RAPID PLASMA REAGIN (test code = RPR) NONREACTIVE AG HEPATITIS B [id number] 16:37:00 Test Item Value Reference Range Interpretation Comments AG HEPATITIS B SURFACE NON REACTIVE INDEX NonReactive (test code = HBSAG) AB HIV 1 16:37:00 Test Item Value Reference Range Interpretation Comments AB HIV 1 2 (test code = ANH98DU) INDEX NONREACTIVE CBC W/AUTO [id number] 16:23:00 Test Item Value Reference Range Interpretation [...] (test NO code = MDIFF) COMPREHENSIVE METABOLIC [id number] 16:19:00 Test Item Value Reference Range Interpretation [...] N TOTAL (test code = ALKP) URINALYSIS [id number] 16:14:00 Test Item Value Reference Range Interpretation [...] = MUCU) TRACE /LPF NONE SEEN URINALYSIS [id number] 13:59:00 Test Item Value Reference Range Interpretation [...] /LPF NONE SEEN - XR CHEST 2 [id number] 11:56:00 FAX: Gabriel Gomez [phone] [place]: St: REG FAX: Shanice Mccarthy DO Name: REYNA EARLY [facility] : 1990 Age/S: 28/F [address] [place] [address] Unit #: [id number] Loc: [place] [address] Phys: Shanice Mccarthy DO Acct: [id number] Dis Date: Status: REG ER PHONE #: [phone] Exam Date: 12/15/2018 1152 FAX #: [phone] Reason: cough EXAMS: CPT CODE: [id number] XR CHEST 2 V 06793 CHEST RADIOGRAPHS - PA AND LATERAL: COMPARISON: None CLINICAL HISTORY: cough Cardiomediastinalsilhouette is stable in size. Lungs are clear. There is a small focal eventration of the anterior right hemidiaphragm. No vascular congestion or pneumothorax. IMPRESSION: No acute pulmonary abnormality. at 1158 Reported and signed by: Roni Pal M.D. CC: Gabriel Torres MD; Shanice Mccarthy DO Technologist: RT Bro(R) Trnscrd Date/Time/By: 12/15/2018 (2026) : By: [email or web address] Orig Print D/T: S: 12/15/2018 (3661) PAGE 1 Signed Report- XR CHEST 1 [id number] 22:02:00 FAX: Gabriel Gomez [phone] [place]: St: REG FAX: Zain Andres MD [phone] - Name: NNEKAREYNA BANG [facility] : 1990 Age/S: 28/F [address] [place] [address] Unit #: [id number] Loc: [place] [address] Phys: Zain Harris MD Acct: [id number] Dis Date: Status: REG ER PHONE #: [phone] Exam Date: 12/12/20182199 FAX #: [phone] Reason: cough EXAMS: CPT CODE: [id number] XR CHEST 1 V 12048 SINGLE VIEW RADIOGRAPH CHEST INDICATION: cough. TECHNIQUE: A single view frontal radiograph of the chest was obtained. COMPARISONS: Chest x-ray 11/10/2018 FINDINGS: There is noacute osseous fracture or dislocation. There is no subdiaphragmatic free gas. The cardiomediastinalsize and contour are normal. There is no pneumothorax, pleural effusion or organized pneumonia. IMPRESSION: 1. No acute cardiopulmonary process. at 4278 Reported and signed by: Nitesh Christiansen D.O. CC: Gabriel Torres MD; Zain Harris MD Technologist: MILADY Stack RT(R) Trnscrd Date/Time/By: 12/12/2018 (2201) : By: [email or web address] Orig Print D/T: S: 12/12/2018 (2204) PAGE 1 Signed ReportURINALYSIS [id number] 15:23:00 Test Item Value Reference Range Interpretation [...] /LPF NONE SEEN DRUGS OF ABUSE SCREEN [id number] 11:29:00 Test Item Value Reference Range Interpretation [...] ed for non-medical pur poses. COMPREHENSIVE METABOLIC [id number] 11:20:00 Test Item Value Reference Range Interpretation [...] TOTAL (test code = ALKP) COMPREHENSIVE METABOLIC [id number] 11:19:00 Test Item Value Reference Range Interpretation [...] code = ALKP) DRUGS OF ABUSE SCREEN [id number] 11:14:00 Test Item Value Reference Range Interpretation [...] us ed for non-medical pur poses. URINALYSIS [id number] 10:58:00 Test Item Value Reference Range Interpretation [...] MUCU) TRACE /LPF NONE SEEN CBC W/AUTO [id number] 10:50:00 Test Item Value Reference Range Interpretation [...] REQUIRED (test NO code = MDIFF) - RETROPERITONEAL [id number] 08:56:00 Name: REYNA EARLY [facility] : 1990 Age/S: 28 / F [address] [place] [address] Unit #: [id number] Loc: [place] [address] Phys: La Nena Dong MD Acct: [id number] Dis Date: Status: REG ER PHONE #: [phone] Exam Date: 11/25/2018 0851 FAX #: [phone] Reason: left flankpain EXAMS: CPT CODE: [id number] US RETROPERITONEAL COM 40095 EXAM: US RETROPERITONEAL COMPLETE DATE: 11/25/2018 7:25 AM : 1990; Age: 28 years y/o Female INDICATION: left flank pain COMPARISON:None. TECHNIQUE: Multiplanar grayscale and color Doppler ultrasound [...] Evaluation is limited due to pain. SL: [id number] PAGE 1 SignedReport (CONTINUED) Name: REYNA EARLY [facility] : 1990 Age/S: 28 / F [address] [place] [address] Bl Unit #: [id number] Loc: [place] [address] Phys: La Nena Dong MD Acct: [id number] Dis Date: Status: REG ER PHONE #: [phone] Exam Date: 11/25/2018 0851 FAX #: [phone] Reason: left flank pain EXAMS: CPT CODE: [id number] US RETROPERITONEAL COM 91357 (Continued) at 0856 Reported and signed by: Carloz Farrell D.O. CC: Gabriel Torres MD; Marcial Schultz MD; La Nena Dong MD Technologist: LAW Justin(SHIRLEY)(AB) Trnscb Date/Time: 11/25/2018 (0856) [email or web address] Orig Print D/T: S: 11/25/2018 (0859) Probe: PAGE 2 Signed Report- XR CHEST 1 [id number] 19:22:00 FAX: Violeta Marie DO [phone] [place]: St: REG FAX: Gabriel Gomez [phone] --- Name: REYNA EARLY [facility] : 1990 Age/S: 28/F [address] [place] [address] Unit #: [id number] Loc: [address] [address] Phys: Violeta Grijalva DO Acct: [id number] Dis Date: Status: REG ER PHONE #: Exam Date: 11/10/2018 190 FAX #: [phone] Reason: cough/chest pain EXAMS: CPT CODE: [id number] XR CHEST 1 V 31707 EXAM: Single view portable AP chest. EXAM [...] SEEN QNS NOTIFIED JEAN MCKNIGHT 1819- US [id number] 19:01:00 Name: REYNA EARLY [facility] : 1990 Age/S: 28 / F [address] [place] [address] Unit #: [id number] Loc: [place] [address] Phys: Dorothea Grijalvaed DO Acct: [id number] Dis Date: Status: REG ER PHONE #: [phone] Exam Date: 11/10/2018 183 FAX #: [phone] Reason: abdominal pain/ chest pain EXAMS: CPT CODE: [id number] [place] LTD 90131 Exam: Limited obstetric ultrasound. Exam date: November [...] RDMS (AB) (OB) Trnscb Date/Time: 11/10/2018 (1900) [email or web address] Orig Print D/T: S:11/10/2018 (1903) Probe: PAGE 1 Signed ReportCOMPREHENSIVE METABOLIC [id number] 18:39:00 Test Item Value Reference Range Interpretation [...] TOTAL (test code = ALKP) CBC W/AUTO [id number] 18:25:00 Test Item Value Reference Range Interpretation [...] code NO = MDIFF) - DOP VEIN [id number] 18:47:00 Name: REYNA EARLY [facility] : 1990 Age/S: 18 / F [address] [place] [address] Bl Unit #: [id number] Loc: [place] [address] Phys: Joselin Alvarez MD Acct: [id number] Dis Date: Status: UNK PHONE #: [phone] Exam Date: 12/21/2008 184 FAX #: [phone] Reason: 36WK IUP SWELLING RLE EXAMS: CPT CODE: [id number] DOP VEIN VERNON 10334 Bilateral lower extremity venous Doppler: HISTORY: , [...] Larissa Olivas RDMS(A)(OB) Trnscb Date/Time: 12/21/2008 (1847) EffieG Orig Print D/T: S: 12/21/2008 (1848) Probe: PAGE 1 Signed Report
[2023-07-17 08:29] LABS: Absolute Lymphocytes (CBC) 2.4 K/uL (0.7-4.9); Hematocrit 41.5 % (36.0-45.0); Lymphocytes % 22.6 % (15.3-44.8); MCV 91.2 fL (80-100); MPV 7.8 fL (7.6-11.3); Platelets 315 thou/uL (152-406); RBC Red Blood Cell Count 4.55 M/uL (3.86-4.86)
[2023-07-17] MEDS ORDERED: NA CHLORIDE 0.9% 1,000 ML ONE (08:31)
[2023-07-17] MEDS ORDERED: ONDANSETRON 4 MG/2 ML VIAL ONE (08:31)
[2023-07-17] MEDS ORDERED: MORPHINE 4 MG/ML SYR ONE (08:31)
[2023-07-17 08:42] LABS: Specific Gravity 1.025 (1.005-1.030)
[2023-07-17 08:45] LABS: Specific Gravity 1.025 (1.005-1.030); Urine Bacteria <20 /HPF (<20); Urine Bilirubin NEGATIVE (Negative); Urine Blood Negative (Negative); Urine Clarity Turbid (Clear); Urine Color Light-Yellow (Yellow); Urine Glucose NEGATIVE (Negative); Urine Mucus Slight /HPF (None Seen); Urine Protein TRACE (Negative); Urine RBC <5 /HPF (None Seen); Urine Urobilinogen Normal (Normal)
[2023-07-17 08:47] LABS: Albumin 3.5 g/dL (3.4-5.0); Bilirubin Total 0.2 mg/dL (0.2-1.0); Potassium 4.1 mEq/L (3.5-5.1); Protein, Total 7.6 g/dL (6.4-8.2)
--- NOTE | 2023-07-17 08:52 | RAD REPORT ---
EXAM DESCRIPTION: CT - Abdomen Pelvis W Contrast - 07/17/2023 8:39 am CLINICAL HISTORY: Abdominal pain COMPARISON: September 2022 TECHNIQUE: Computed axial tomography of the abdomen pelvis was obtained. 100 cc Isovue-300 was admin istered intravenously. Oral contrast was not requested which limits evaluation of bowel and appendix All CT scans are performed using dose optimization technique as appropriate and may include automated exposure control or mA/KV adjustment according to patient size. FINDINGS: The liver, spleen, pancreas, adrenals appear unremarkable. Tiny nonobstructing renal calcu li There is no evidence of diverticulitis. Mild anterior subluxation of L5 on S1. Spondylolysis L5 Large ventral hernia again demonstrated Normal appendix. No adnexal mass Multiple gallstones and gallbladder sludge. IMPRESSION: Cholelithiasis
--- NOTE | 2023-07-17 09:22 | RAD REPORT ---
EXAM DESCRIPTION: US - Abdomen Exam Limited - 07/17/2023 8:55 am CLINICAL HISTORY: Abdominal pain. COMPARISON: CT abdomen July 17, 2023 FINDINGS: Multiple gallstones. Stone is present within the gallbladder neck. Gallbladder wall is upp er limits normal thickness. Common bile duct measures 6 millimeters which is upper limits normal IMPRESSION: Cholelithiasis without evidence of cholecystitis
--- NOTE | 2023-07-17 09:31 | ER ---
Nurse's Notes [facility] Name: Qasim Resendez Age: 32 yrs Sex: Female : 1990 Arrival Date: 07/17/2023 Time: 08:00 Bed 17 Private MD: Yunior Hunter Diagnosis: Other cholelithiasis without obstruction Presentation: 07/17 08:11 Chief complaint: RUQ pain that radiates to back x 2 hours. Hx of cholecystitis. hb Coronavirus screen: At this time, the client does not indicate any symptoms associated with coronavirus-19. Ebola Screen: No symptoms or risks identified at this time. Initial Sepsis Screen: Does the patient meet any 2 criteria? No. Patient's initial sepsis screen is negative. Does the patient have a suspected source of infection? No. Patient's initial sepsis screen is negative. Risk Assessment: Do you want to hurt yourself or someone else? Patient reports no desire to harm self or others. Onset of symptoms was July 17, 2023. 08:11 Method Of Arrival: Ambulatory hb 08:11 Acuity: ELÍAS 3 hb Historical: - PMHx: 08:12 GALLSTONES; Kidney stone; hb - PSHx: 08:12 section; hb 08:13 Ligation of fallopian tube; Tonsillectomy; hb - Immunization history:: Adult Immunizations up to date. - Social history:: Smoking status: Patient denies any tobacco usage or history of. Screenin:05 [facility] ED Fall Risk Assessment (Adult) History of falling in the last 3 months, kd3 including since admission No falls in past 3 months (0 pts) Confusion or Disorientation No (0 pts) Intoxicated or Sedated No (0 pts) Impaired Gait No (0 pts) Mobility Assist Device Used No (0 pt) Altered Elimination No (0 pt) Score/Fall Risk Level 0 - 2 = Low Risk Maintained a safe environment. Abuse screen: Denies threats or abuse. Denies injuries from another. Nutritional screening: No deficits noted. Tuberculosis screening: No symptoms or risk factors identified. Assessment: 08:37 General: Appears uncomfortable, Behavior is calm, cooperative. Pain: Complains of pain kd3 in right upper quadrant. Cardiovascular: Patient's skin is warm and dry. Respiratory: Airway is patent Trachea midline Respiratory effort is even, unlabored. GI: Bowel sounds present X 4 quads. Abdomen is tender to palpation in right upper quadrant. Vital Signs: 08:11 BP 142 / 92; Pulse 55; Resp 16; Temp 97.6; Pulse Ox 100% on R/A; Weight 119.29 kg; hb Height 5 ft. 4 in. ; Pain 8/10; 10:07 BP 121 / 63; Pulse 84; Resp 19; Pulse Ox 100% on R/A; kd3 08:11 Body Mass Index 45.14 (119.29 kg, 162.56 cm) hb 08:11 Pain Scale: Adult hb ED Course: 08:03 Patient arrived in ED. mr 08:03 Yunior Hutner MD is Private Physician. mr 08:03 [facility]. jh7 08:03 Jeffery Bernstein MD is Attending Physician. jh7 08:12 Triage completed. hb 08:13 Arm band placed on. hb 08:25 Vania Rosado, RN is Primary Nurse. kd3 08:25 CBC with Diff Sent. hb 08:25 CMP Sent. hb 08:25 Lipase Sent. hb 08:25 Test, Urine Sent. hb 08:26 Inserted saline lock: 20 gauge in right antecubital area, using aseptic technique. ls5 Blood collected. 08:37 Urinalysis w/ reflexes Sent. kd3 08:41 CT Abd/Pelvis - IV Contrast Only In Process Unspecified. EDMS 08:57 US Abdomen Limited In Process Unspecified. EDMS 09:31 Brennan Dennis MD is Referral Physician. jh7 10:06 Patient has correct armband on for positive identification. Provided Education on: . kd3 10:06 No provider procedures requiring assistance completed. IV discontinued, intact, kd3 bleeding controlled, No redness/swelling at site. Pressure dressing applied. Administered Medications: 08:25 Drug: NS 0.9% IV 1000 ml IV at 1 bolus Per protocol; 1000 mL bolus Route: IV; Rate: 1 hb bolus; Site: right antecubital; 10:07 Follow up: IV Status: Completed infusion; IV Intake: 500ml kd3 08:25 Drug: Ondansetron IVP 4 mg IVP once; over 2 minutes Route: IVP; Site: right antecubital;hb 10:07 Follow up: Response: No adverse reaction; Nausea is decreased kd3 08:26 Drug: morphine IVP or IV 4 mg IVP once over 4 mins Route: IVP; Infused Over: 4 mins; Site: right antecubital; 10:08 Follow up: Response: No adverse reaction; Pain is decreased kd3 09:32 Drug: fentaNYL (PF) IVP 50 mcg IVP once Route: IVP; Site: right antecubital; kd3 10:07 Follow up: Response: No adverse reaction kd3 Medication: 08:37 VIS not applicable for this client. kd3 Intake: 10:07 IV: 500ml; Total: 500ml. kd3 Outcome: 09:31 Discharge ordered by . jh7 10:06 Discharged to home ambulatory, kd3 10:06 Condition: stable 10:06 Discharge instructions given to patient, Instructed on discharge instructions, follow up and referral plans. Demonstrated understanding of instructions, follow-up care, Prescriptions given X 1, 10:08 Patient left the ED. kd3 Signatures: Dispatcher [employer] EDMS Selena Miller, Reg Reg Rosenda Smith, RN RN Vania Walton RN RN kd3 June Mark, AVIONICS TECHNICIAN AVIONICS TECHNICIAN Lewis Ward5
--- NOTE | 2023-07-17 09:32 | EDPHYS ---
Physician Documentation [facility] Name: Qasim Resendez Age: 32 yrs Sex: Female : 1990 Arrival Date: 07/17/2023 Time: 08:00 Bed 17 Private MD: Yunior Hunter ED Physician Jeffery Bernstein HPI: 07/17 08:03 This 32 yrs old Female presents to ER via Unassigned with complaints of Abdominal Pain. jh7 08:03 The patient presents with abdominal pain in the right upper quadrant. Onset: The jh7 symptoms/episode began/occurred 1.5 hour(s) ago. Associated signs and symptoms: Pertinent positives: nausea, Pertinent negatives: constipation, diarrhea, dysuria, fever, vomiting. The symptoms are described as crampy, sharp. Patient reports gallbladder flareups for the past several months, with this flareup starting 1.5 hours ago. States that she has had issues with her insurance covering a cholecystectomy and has been seeing Dr Swan. She is a patient of Dr. Hernandez. NK[facility]. Denies fever, urinary symptoms, vomiting, constipation, or diarrhea.. Historical: - PMHx: 08:12 GALLSTONES; Kidney stone; hb - PSHx: 08:12 section; hb 08:13 Ligation of fallopian tube; Tonsillectomy; hb - Immunization history:: Adult Immunizations up to date. - Social history:: Smoking status: Patient denies any tobacco usage or history of. ROS: 08:03 Constitutional: Negative for fever, chills, and weight loss, Eyes: Negative for injury, jh7 pain, redness, and discharge, ENT: Negative for injury, pain, and discharge, Neck: Negative for injury, pain, and swelling, Cardiovascular: Negative for chest pain, palpitations, and edema, Respiratory: Negative for shortness of breath, cough, wheezing, and pleuritic chest pain, Back: Negative for injury and pain, MS/Extremity: Negative for injury and deformity, Skin: Negative for injury, rash, and discoloration, Neuro: Negative for headache, weakness, numbness, tingling, and seizure, 08:03 Abdomen/GI: Positive for abdominal pain, nausea, Negative for vomiting, diarrhea, constipation, 08:03 All other systems are negative, Exam: 08:03 Head/Face: Normocephalic, atraumatic. Neck: Trachea midline, no thyromegaly or masses jh7 palpated, and no cervical lymphadenopathy. Supple, full range of motion without nuchal rigidity, or vertebral point tenderness. No Meningismus. Cardiovascular: Regular rate and rhythm with a normal S1 and S2. No gallops, murmurs, or rubs. Normal PMI, no JVD. No pulse deficits. Respiratory: Lungs have equal breath sounds bilaterally, clear to auscultation and percussion. No rales, rhonchi or wheezes noted. No increased work of breathing, no retractions or nasal flaring. Back: No spinal tenderness. No costovertebral tenderness. Full range of motion. Skin: Warm, dry with normal turgor. Normal color with no rashes, no lesions, and no evidence of cellulitis. MS/ Extremity: Pulses equal, no cyanosis. Neurovascular intact. Full, normal range of motion. Neuro: Awake and alert, GCS 15, oriented to person, place, time, and situation. Motor strength 5/5 in all extremities. Sensory grossly intact. Normal gait. 08:03 Constitutional: The patient appears alert, awake, in obvious pain, 08:03 Abdomen/GI: Inspection: abdomen appears normal, Bowel sounds: normal, Palpation: soft, moderate abdominal tenderness, in the right upper quadrant, Vital Signs: 08:11 BP 142 / 92; Pulse 55; Resp 16; Temp 97.6; Pulse Ox 100% on R/A; Weight 119.29 kg; hb Height 5 ft. 4 in. ; Pain 8/10; 10:07 BP 121 / 63; Pulse 84; Resp 19; Pulse Ox 100% on R/A; kd3 08:11 Body Mass Index 45.14 (119.29 kg, 162.56 cm) hb 08:11 Pain Scale: Adult hb MDM: 08:03 Patient medically screened. [facility] 09:32 Differential diagnosis: cholecystitis, Cholelithiasis, pancreatitis, Pyelonephritis. [facility] Data reviewed: vital signs, nurses notes, lab test result(s), radiologic studies, CT scan, ultrasound. I considered the following discharge prescriptions or medication management in the emergency department Medications were administered in the Emergency Department. See MAR. Counseling: I had a detailed discussion with the patient and/or guardian regarding the historical points, exam findings, and any diagnostic results supporting the discharge/admit diagnosis, the need for outpatient follow up, a general surgeon, to return to the emergency department if symptoms worsen or persist or if there are any questions or concerns that arise at home. Response to treatment: the patient's symptoms have markedly improved after treatment. 07/17 08:11 Order name: CBC with Diff; Complete Time: 08:43 [facility] 07/17 08:11 Order name: CMP; Complete Time: 08:52 [facility] 07/17 08:11 Order name: Lipase; Complete Time: 08:52 [facility] 07/17 08:11 Order name: Test, Urine; Complete Time: 08:43 [facility] 07/17 08:11 Order name: Urinalysis w/ reflexes; Complete Time: 08:46 [facility] 07/17 08:11 Order name: CT Abd/Pelvis - IV Contrast Only; Complete Time: 08:52 [facility] 07/17 08:11 Order name: US Abdomen Limited; Complete Time: 09:30 [facility] 07/17 08:11 Order name: IV Saline Lock; Complete Time: 08:25 [facility] 07/17 08:11 Order name: Labs collected and sent; Complete Time: 08:25 [facility] Administered Medications: 08:25 Drug: NS 0.9% IV 1000 ml IV at 1 bolus Per protocol; 1000 mL bolus Route: IV; Rate: 1 hb bolus; Site: right antecubital; 10:07 Follow up: IV Status: Completed infusion; IV Intake: 500ml kd3 08:25 Drug: Ondansetron IVP 4 mg IVP once; over 2 minutes Route: IVP; Site: right antecubital;hb 10:07 Follow up: Response: No adverse reaction; Nausea is decreased kd3 08:26 Drug: morphine IVP or IV 4 mg IVP once over 4 mins Route: IVP; Infused Over: 4 mins; hb Site: right antecubital; 10:08 Follow up: Response: No adverse reaction; Pain is decreased kd3 09:32 Drug: fentaNYL (PF) IVP 50 mcg IVP once Route: IVP; Site: right antecubital; kd3 10:07 Follow up: Response: No adverse reaction kd3 Disposition: 15:29 Co-signature as Attending Physician, Jeffery Bernstein MD I agree with the assessment and cp3 plan of care. Disposition Summary: 07/17/23 09:31 Discharge Ordered Notes: Location: Home [facility] Problem: an ongoing problem [facility] Symptoms: are unchanged [facility] Condition: Stable [facility] Diagnosis - Other cholelithiasis without obstruction [facility] Followup: [facility] - With: Brennan Dennis MD - When: 2 - 3 days - Reason: Recheck today's complaints Discharge Instructions: - Discharge Summary Sheet [facility] - Cholelithiasis [facility] Forms: - Medication Reconciliation Form [facility] - Thank You Letter [facility] - Prescription Opioid Use [facility] - Patient Portal Instructions [facility] - Leadership Thank You Letter [facility] Prescriptions: - Tramadol 50 mg Oral Tablet - take 1 tablet ORAL route every 8 hours as needed; 12 tablet; Refills: 0, 7 Product Selection Permitted Signatures: Dispatcher [employer] Jeffery Mahajan MD MD cp3 Rosenda Win RN RN Vania Rosado RN RN kd3 June Mark, SIGNALS COLLECTOR/ANALYST SIGNALS COLLECTOR/ANALYST [facility] Corrections: (The following items were deleted from the chart) 08:27 08:03 Patient reports gallbladder flareups for the past several months. States that she [facility] has had issues with her insurance covering a cholecystectomy. She is a patient of Dr. Hernandez. [facility]. Denies fever, vomiting, constipation, or diarrhea.. [facility]
[2023-07-17] MEDS ORDERED: FENTANYL CITR 100 MCG/2 ML ONE (09:43)
[2023-07-17 10:21] VITALS: TEMP 97.6; O2SAT 100
[2023-07-17 10:24] VITALS: BP 121/63
== END 2023-07-17 10:08 | disposition home or self-care (01) ==
LOC: ER 08:00
DX: K80.80 Other cholelithiasis without obstruction (principal)
CPT/HCPCS: 96361; 85025; 81001; 36415; 81025; 83690; 80053; 74177; 76705; 96375; 96374; 99284; Q9967; J3010; J2405; J7030

== ENCOUNTER 2023-08-04 08:01 | Observation (INO) | payer OTHER ==
--- OUTSIDE RECORDS SUMMARY | 2023-08-04 08:08 | XMS REPORT | Continuity of Care Document ---
:1990 Author Organization [facility] t Address [address] [place] [address] [place] [id number] Care Team Providers Name Role Phone Asked, No Pcp Primary Care Physician Unavailable [email or web address]_Kadiyala_S Attending Clinician Unavailable Bradly RDZ, Ron Giang H Attending Clinician [phone] AAYUSH PALENCIA Attending Clinician Unavailable Eugenio RDZ, David Attending Clinician Bhargav Redd MD Attending Clinician [phone] Beltran Christine MD Attending Clinician [phone] Abimbola Lincoln MD Attending Clinician Layo RDZ, Yony Rodas Attending Clinician Regina Ruiz Attending Clinician Unavailable Shreyas Craig DO Attending Clinician [phone] Nory RDZ, Rosalind Attending Clinician Brooks Boo MD Attending Clinician [phone] Brooks Toribio Attending Clinician Unavailable Edwardo RDZ, [...] MD KENNA LOPEZ Admitting Clinician Unavailable LAYO, JIG MAKER THUYTRAN THI Admitting Clinician Unavailable Payers Payer Name Policy Type Policy Number Effective Date Expiration Date Analy [place] - [id number] [place] [id number] ([facility]) Problems Condition Condition Condition Status Onset Resolution [...] Allergie 7-10 Clear s 00:00: Willson 00 [facility] No Known DA Active U 2020-0 [facility] Allergie 7-10 Clear s 00:00: Willson 00 [facility] No Known DA Active U 2020-0 [facility] Allergie 1-24 Clear s 00:00: Willson [facility] No Known DA Active U 2018-0 [facility] Allergie 5-07 Clear s 00:00: Willson [facility] No Known DA Active U 2019-0 [facility] Allergie 3-20 Clear s 00:00: Willson [facility] No Known DA Active U 2018-0 [facility] Allergie 2-13 Clear s 00:00: Willson 00 [facility] No Known DA Active U 2017- [facility] Allergie 1-27 Clear s 00:00: Willson 00 [facility] No Known DA Active U 2008-0 [facility] Contrast 3-26 [place] Allergie 00:00: e s [address] [place] [address] No Known DA Active U 2009-0 [facility] Drug 3-26 [place] [facility] No Known DA Active U 2008-0 [facility] No Known DA Active U 2008- [facility] Other [facility]- [facility] No Known DA Active U 2007- [facility] 2- [facility] e [facility] No Known DA Active U 2007- [facility] Family History Family Member Diagnosis Comments Start Date Stop Date Source Natural mother Cancer [facility] Natural mother Hypertension [facility] Paternal grandmother Diabetes [facility] Paternal grandmother Hypertension [facility] Paternal grandmother Stroke [facility] Natural father Hypertension [facility] Natural father Stroke [facility] Social History Social Habit Start Date Stop Date Quantity Comments Source [facility] History of tobacco Cigarette Smoker [facility] use [facility] Gender identity [facility] History of Social 2023-04-02 2023-04-[address] function 00:00:00 00:00:00 Hospital Alcohol intake 2023-03-11 2023-03-11 Current [facility] 00:00:00 00:00:00 non-drinker of Hospital alcohol (finding) Tobacco use and 2022-01-02 2022-01-02 Smokeless [facility] exposure 00:00:00 00:00:00 tobacco non-user Hospital Sex Assigned At [birth year] [facility] 00:00:00 00:00:00 Hospital Smoking Status Start Date Stop Date Source Ex-smoker 2022-01-02 00:00:00 2022-01-02 00:00:00 [facility] Medications Ordered Filled Start Stop [...] as needed for mild pain. methylPREDN 3-0 3- No follow Met hodi [...] 4 00 :00 l mg tablet methylPREDN 2023-0 3- No follow Met hodi ISolone 03-[address] (MEDROL 00:00: 04:59 directions Hos rain DOSEPAK) 4 00 :00 l mg tablet methylPREDN 2023-0 3- No follow Met hodi ISolone 03-[address] (MEDROL 00:00: 04:59 directions Hos rain DOSEPAK) 4 00 :00 l mg tablet methylPREDN 2023-0 2023- No follow Met hodi ISolone 6-14 06-[address] (MEDROL 00:00: 04:59 directions Hos rain DOSEPAK) 4 00 :00 l mg tablet ibuprofen 2022-0 Yes 600mg Q8H Take 1 Metho di (ADVIL) 600 4-[address] MG tablet 00:00: (600 mg Hospi ta 00 total) by l mouth every 8 (eight) hours as needed for mild pain. traMADoL 2022-0 Yes [id number] 50mg Q8H Take 1 Method i (ULTRAM) [...] needed for mild pain. traMADoL 2022-0 Yes [id number] 50mg Q8H Take 1 Method i (ULTRAM) [...] needed for mild pain. traMADoL 2022-0 Yes 20056 50mg Q8H Take 1 Method i (ULTRAM) [...] needed for mild pain. traMADoL 2022-0 Yes [id number] 50mg Q8H Take 1 Method i (ULTRAM) [...] needed for mild pain. traMADoL 2022-0 Yes 18183 50mg Q8H Take 1 Method i (ULTRAM) [...] needed for mild pain. traMADoL 2022-0 Yes 26077 50mg Q8H Take 1 Method i (ULTRAM) [...] per tablet day for 7 days. amoxicillin 2023-0 2023- No 1{tbl} Q.5D Take 1 M ethodi -pot -01 29-[address] clavulanate 00:00: 04:59 mouth 2 Ho spita (Augmentin) 00 :00 (two) l 875-125 mg times a per tablet day for 7 days. amoxicillin 2023-0 2023- No 1{tbl} Q.5D Take 1 M [...] 500mg Q.5D Take 1 Me thodi oL 12-[address] (ROBAXIN) 00:00: 05:59 (500 mg [...] times a day for 5 days. methocarbam 3-0 2023- No 500mg Q.5D Take [...] a day for 5 days. predniSONE 2022-0 2023- No 40mg QD Take 4 Meth janelle (DELTASONE) 12-01-[address] 10 mg 00:00: 05:59 (40 mg Hospita tablet 00 :00 total) by l mouth daily for 4 days. predniSONE 2023-0 2023- No 40mg QD Take 4 Meth janelle (DELTASONE) 3 03-[address] 10 mg 00:00: 05:59 (40 mg Hospita tablet 00 :00 total) by l mouth daily for 4 days. predniSONE 2022-0 2023- No 40mg QD Take 4 Meth janelle (DELTASONE) 3- 03-[address] 10 mg 00:00: 05:59 (40 mg Hospita tablet 00 :00 total) by l mouth daily for 4 days. predniSONE 2022-0 2023- No 40mg QD Take 4 Meth janelle (DELTASONE) 3- 03-[address] 10 mg 00:00: 05:59 (40 mg Hospita tablet 00 :00 total) by l mouth daily for 4 days. predniSONE 2022-0 2023- No 40mg QD Take 4 Meth janelle (DELTASONE) 3- 03-[address] 10 mg 00:00: 05:59 (40 mg Hospita tablet 00 :00 total) by l mouth daily for 4 days. predniSONE 2022-0 2023- No 40mg QD Take 4 Meth janelle (DELTASONE) 3-[address] 10 mg 00:00: 05:59 (40 mg Hospita tablet 00 :00 total) by l mouth daily for 4 days. ondansetron 2-0 2022- No 4mg Q8H Take 1 Met [...] M ethodi acetaminoph 9-26 09-30 tablet by [facility] 00:00: 04:59 mouth Hospita (Esgic) 00 :00 every 6 l 50-325-40 (six) mg per hours as tablet needed for headaches for up to 3 days. butalbital- 2021- No 1{tbl} Q6H Take 1 M ethodi acetaminoph 9-26 09-30 tablet by [facility] 00:00: 04:59 mouth Hospita (Esgic) 00 :00 every 6 l 50-325-40 (six) mg per hours as tablet needed for headaches for up to 3 days. butalbital- 2021- No 1{tbl} Q6H Take 1 M ethodi acetaminoph 9-26 09-30 tablet by [facility] 00:00: 04:59 mouth Hospita (Esgic) 00 :00 [...] nausea for up to 30 days. ondansetron 202-0 2022- No 4mg Q12H Take 1 Met [...] daily for 5 days. acetaminoph 2021- [place] [address] 5mL Q6H Take 5 mL Methodi en [...] mouth daily [place] 5 [place] [address] 5mL Q6H Take 5 mL Methodi en with 03-[address] codeine 00:00: 04:59 every 6 Hospit a (acetaminop 00 :00 (six) l hen-codeine hours as ) 120-12 needed for mg/5 mL moderate solution pain or severe pain for up to 5 days .acute pain. benzonatate 2021-0 Yes 100mg Q.08202683 Take 1 Methodi (TESSALON) 6-[id number] 100 MG 00:00: 3D (100 mg Hospita capsule 00 total) by l mouth 3 (three) times a day as needed for cough. benzonatate 2021-0 Yes 100mg Q.76071851 Take 1 Methodi (TESSALON) 6- [id number] capsule st 100 MG 00:00: 3D (100 mg Hospita capsule 00 total) by l mouth 3 (three) times a day as needed for cough. benzonatate 202-0 Yes 100mg Q.14637117 Take 1 Method[facility] (TESSALON) 6-[id number] 100 MG 00:00: 3D (100 mg Hospita capsule 00 total) by l mouth 3 (three) times a day as needed for cough. benzonatate 202-0 Yes 100mg Q.59055107 Take 1 Method[facility] (TESSALON) 6-[id number] 100 MG 00:00: 3D (100 mg Hospita capsule 00 total) by l mouth 3 (three) times a day as needed for cough. benzonatate 2021-0 Yes 100mg Q.[id number] Take 1 Methodi (TESSALON) 6-[id number] 100 MG 00:00: 3D (100 mg Hospita capsule 00 total) by l mouth 3 (three) times a day as needed for cough. benzonatate 2021-0 Yes 100mg Q.24396551 Take 1 Method[facility] (TESSALON) 6-[id number] 100 MG 00:00: 3D (100 mg Hospita capsule 00 total) by l mouth 3 (three) times a day as needed for cough. benzonatate 2021-0 Yes 100mg Q.24129593 Take 1 Method[facility] (TESSALON) 6-[id number] 100 MG 00:00: 3D (100 mg Hospita capsule 00 total) by l mouth 3 (three) times a day as needed for cough. benzonatate 2021-0 Yes 100mg Q.99945196 Take 1 Method[facility] (TESSALON) 6-[id number] 100 MG 00:00: 3D (100 [...] No 2{puff} Q4H Inhale 2 Methodi (PROAIR 6-[address] HFA) 90 00:00: 04:59 every [...] tablet hours [place] 7 [place] [address] 50mg Q8H Take 1 Metho di (ULTRAM) 50 2-28 03-04 tablet (50 s t mg tablet 00:00: 05:59 mg total) Ho spita 00 :00 by mouth l every 8 (eight) hours as needed for moderate pain for up to 3 [place] [address] 50mg Q8H Take 1 Metho di (ULTRAM) [...] pressure Diastolic blood 2023-04-02 16:00:00 64 [facility] Heart rate 2023-04-02 16:00:00 57 /min [facility] Respiratory rate 2023-04-02 16:00:00 19 /min [facility] Oxygen saturation in 2023-04-02 16:00:00 98 /min [facility] Arterial blood by Pulse oximetry Body temperature 2023-04-02 13:30:00 36.78 Jerrica [facility] Body height 2023-04-02 12:42:00 162.6 cm [facility] Body weight 2023-04-02 12:42:00 111.131 kg [facility] BMI 2023-04-02 12:42:00 42.05 kg/m2 [facility] Body temperature 2023-03-11 15:18:00 36.83 Jerrica [facility] Systolic blood 2023-03-11 15:16:00 141 mm[Hg] [facility] Hospital pressure Diastolic blood 2023-03-11 15:16:00 82 mm[Hg] [facility] Hospital pressure Heart rate 2023-03-11 15:16:00 72 /min [facility] Respiratory rate 2023-03-11 15:16:00 18 /min [facility] Body height 2023-03-11 15:16:00 162.6 cm [facility] Body weight 2023-03-11 15:16:00 104 kg [facility] BMI 2023-03-11 15:16:00 39.36 kg/m2 [facility] Oxygen saturation in 2023-03-11 15:16:00 94 /min [facility] Arterial blood by Pulse oximetry Systolic blood 2022-06-24 02:34:48 139 mm[Hg] [facility] pressure Diastolic blood 2022-06-24 02:34:48 89 mm[Hg] [facility] Heart rate 2022-06-24 02:34:48 79 /min [facility] Body temperature 2022-06-24 02:34:48 36.22 Jerrica [facility] Respiratory rate 2022-06-24 02:34:48 20 /min [facility] Oxygen saturation in 2022-06-24 02:34:48 99 /min [facility] Arterial blood by Pulse oximetry Body height 2022-06-24 00:39:00 162.6 cm [facility] Body weight 2022-06-24 00:39:00 113.399 kg [facility] BMI 2022-06-24 00:39:00 42.91 kg/m2 [facility] Procedures Procedure Date / Time Performing Clinician Source Performed US GALLBLADDER 2023-04-02 14:18:23 Ron Abdullahi [facility] Abdullah H URINE CULTURE 2023-04-02 13:11:00 [facility] CBC WITH PLATELET AND 2023-04-02 13:11:00 [facility] DIFFERENTIAL Abdullah H COMPREHENSIVE METABOLIC 2023-04-02 13:11[facility]00 [facility] Abdullah H ESTIMATED GFR 2023-04-02 13:11:00 [facility] URINALYSIS SCREEN AND 2023-04-02 13:10:00 [facility] WITH REFLEX Abdullah H TO CULTURE CBC WITH PLATELET AND 2023-03-11 16:06:00 [facility] DIFFERENTIAL COMPREHENSIVE METABOLIC 2023-03-11 16:06:00 [facility] PANEL TROPONIN T 2023-03-11 16:06:00 [facility] NT-PROBNP 2023-03-11 16:06:00 [facility] HCG QUALITATIVE, SERUM 2023-03-11 16:06:00 [facility] SCREEN ESTIMATED GFR 2023-03-11 16:06:00 [facility] XR CHEST 1 VW PORTABLE 2023-03-11 15:42:54 [facility] ECG 12-LEAD 2023-03-11 15:24:30 [facility] URINE CULTURE 2022-12-01 20:20:00 Andi Lopez ospital HCG QUALITATIVE, URINE 2022-12-01 20:20:00 Andi Lopez [facility] SCREEN URINALYSIS SCREEN AND 2022-12-01 20:20:00 LopezAndi maldonado [facility] MICROSCOPY, WITH REFLEX TO CULTURE CT HEAD WO CONTRAST 2022-06-24 02:05:05 Isidro, [facility] CT CERVICAL SPINE WO 2022-06-24 02:04:53 [facility] CONTRAST ED REFERRAL TO [place] 2022-05-14 13:11:51 Yony Fragoso [facility] ORIENTAL ORTHODOX PHYSICIAN ORGANIZATION (PCP) ED REFERRAL TO [place] 2022-03-17 05:56[facility] Vitaliy ORGANIZATION (PCP) ECG 12-LEAD 2022-03-17 05:38:10 [facility] spital Vitaliy ECG ED PRELIMINARY 2022-03-17 04:44:21 [facility] INTERPRETATION Vitaliy HCG QUALITATIVE, URINE 2022-03-17 03:49:00 [facility] CHEST 2 VW 2022-03-17 03:46:29 [facility] spital Vitaliy GROUP A STREP, RAPID 2022-03-17 03:32:00 [facility] ANTIGEN Vitaliy INFLUENZA ANTIGEN 2022-03-17 03:32:00 [facility] Vitaliy RESPIRATORY PATHOGEN 2022-03-17 03:32:00 [facility] PANEL WITH COVID-19 Vitaliy RT-PCR STREP SCREEN CULTURE 2022-03-17 03:32:00 [facility] Vitaliy XR CHEST 2 VW 2022-03-03 13:27:46 [facility] INFLUENZA ANTIGEN 2022-03-03 13:02:[address] [facility] RESPIRATORY PATHOGEN 2022-03-03 13:02:00 [facility] PANEL WITH COVID-19 RT-PCR ECG ED PRELIMINARY 2022-03-03 12:53:04 Rosalind Cueto [facility] INTERPRETATION ECG 12-LEAD 2022-03-03 12:42:43 [facility] Plan of Care Planned Activity Planned Date Details Comments Source Future Scheduled 2023-07-23 Hepatitis C screening [facility] Test 02:33:44 (procedure) [code = 011731403] Future Scheduled 2023-07-23 Screening for [facility] Test 02:33:44 malignant neoplasm of cervix (procedure) [code = 047628869] Future Scheduled 2023-07-23 COVID-19 VACCINE (2 - [facility] Test 02:33:44 season) [code = COVID-19 VACCINE ( - season)] Future Scheduled 2023-07-23 INFLUENZA VACCINE (#1) [facility] Test 02:33:44 [code = INFLUENZA VACCINE (#1)] Future Scheduled 2023-07-13 Hepatitis C screening [facility] Test 17:35:35 (procedure) [code = 149220047] Future Scheduled 2023-07-13 Screening for [facility] Test 17:35:35 malignant neoplasm of cervix (procedure) [code = 696017393] Future Scheduled 2023-07-13 COVID-19 VACCINE (2 - [facility] Test 17:35:35 ) [code = COVID-19 VACCINE ( season)] Future Scheduled 2023-07-13 INFLUENZA VACCINE (#1) [facility] Test 17:35:35 [code = INFLUENZA VACCINE (#1)] Future Scheduled 2023-07-13 RSV VACCINES > 60 YR [facility] Test 17:35:35 (1 - 1-dose 60+ series) [code = RSV VACCINES > 60 YR (1 - 1-dose 60+ series)] Future Scheduled 2023-05-31 Hepatitis C screening [facility] Test 09:51:19 (procedure) [code = 825907394] Future Scheduled 2023-05-31 Screening for [facility] Test 09:51:19 malignant neoplasm of cervix (procedure) [code = 909712067] Future Scheduled 2023-05-31 COVID-19 VACCINE (2 - [facility] Test 09:51:19 Pfizer series) [code = COVID-19 VACCINE (2 - Pfizer series)] Future Scheduled 2023-05-31 INFLUENZA VACCINE (#1) [facility] Test 09:51:19 [code = INFLUENZA VACCINE (#1)] Future Scheduled 2023-05-31 [facility] 09:51:19 (procedure) [code = 671873311] Future Scheduled 2023-05-31 [facility] Test 09:51:19 malignant neoplasm of cervix (procedure) [code = 236376770] Future Scheduled 2023-05-31 COVID-19 VACCINE (2 - [facility] Test 09:51:19 Pfizer series) [code = COVID-19 VACCINE (2 - Pfizer series)] Future Scheduled 2023-05-31 [facility]ZA [facility]ACCINE (#[facility]) [facility] 09:51:19 [code = INFLUENZA VACCINE (#1)] Future Scheduled 2023-05-31 [facility] Test 09:51:19 (procedure) [code = 575025167] Future Scheduled 2023-05-31 [facility] Test 09:51:19 malignant neoplasm of cervix (procedure) [code = 304040250] Future Scheduled 2023-05-31 [facility]19 [facility] 09:51:19 Pfizer series) [code = COVID-19 VACCINE (2 - Pfizer series)] Future Scheduled 2023-05-31 INFLUENZA VACCINE (#1) [facility] 09:51:19 [code = INFLUENZA VACCINE (#1)] Future Scheduled 2023-03-27 [facility] Test 01:47:07 (procedure) [code = 131344577] Future Scheduled 2023-03-27 [facility] Test 01:47:07 malignant neoplasm of cervix (procedure) [code = 145115394] Future Scheduled 2023-03-27 COVID-19 VACCINE (2 - [...] PCV)] Future Scheduled 2022-09-18 Hepatitis C screening [facility] Test 14:43:59 (procedure) [code = 360126745] Future Scheduled 2022-09-18 [facility] Test 14:43:59 malignant neoplasm of cervix (procedure) [code = 129247032] Future Scheduled 2022-09-18 COVID-19 VACCINE (2 - [facility] Test 14:43:59 Pfizer series) [code = COVID-19 VACCINE (2 - Pfizer series)] Future Scheduled 2022-09-18 [facility]ZA [facility]ACCINE [facility] Test 14:43:59 [code = INFLUENZA VACCINE] Future Scheduled 2022-07-31 [facility] Test 16:34:59 (1 of 3 - 3-dose series) [code = HEPATITIS B VACCINES (1 of 3 - 3-dose series)] Future Scheduled 2022-07-31 Pneumococcal Vaccine: [facility] Test 16:34:59 Pediatrics (0 to 5 Years) and At-Risk Patients (6 to 64 Years) (1 - PCV) [code = Pneumococcal Vaccine: Pediatrics (0 to 5 Years) and At-Risk Patients (6 to 64 Years) (1 - PCV)] Future Scheduled 2022-07-31 Hepatitis C screening [facility] Test 16:34:59 (procedure) [code = 045352994] Future Scheduled 2022-07-31 [facility] Test 16:34:59 malignant neoplasm of cervix (procedure) [code = 020906143] Future Scheduled 2022-07-31 COVID-19 VACCINE (2 - [facility] Test 16:34:59 Pfizer series) [code = COVID-19 VACCINE (2 - Pfizer series)] Future Scheduled 2022-07-31 INFLUENZA VACCINE [facility] Test 16:34:59 [code = INFLUENZA VACCINE] Encounters Start End Encounter Admission Attending Care Care Encounter Source Date/Time Date/Time Type Type Clinicians Facility Department ID 2023-03-27 Outpatient BUSYB BUSYB [id number] Bee 09:05:05 [id number] [facility] 2019-10-21 Inpatient [facility] [id number] [facility] 19:27:00 60 [facility] 2023-07-17 2023-07-17 Outpatient GC_GCBZW_Ka PRIV PRIV [id number] [facility] 00:00:00 00:00:00 diyala_S [id number] Medic al 2023-07-14 2023-07-14 Outpatient [facility] [id number] Jose 10:31:49 10:31:49 [id number] Fuad Hernandez 2023-06-02 2023-06-02 Outpatient GC_GCBZW_Ka PRIV PRIV [id number] [facility] 00:00:00 00:00:00 diyala_S [id number] Medic al 2023-04-02 2023-04-02 Emergency Alhuzali, 1.2.840.1 [id number] Method[facility] 07:37:00 12:18:[address] Abdullah H 3.430.2.7 Hos rain .3.438394 l .8 2023-04-02 2023-04-02 Emergency Alzali, 1.2.840.1 [id number] 21 [id number] [facility] 07:37:00 12:18:[address] Abdullah H 3.430.2.7 Hos rain .3.653991 l .8 2023-04-02 2023-04-02 Outpatient ALVIN PALENCIA [id number] Bee 00:00:00 00:00:00 AAYUSH Davis [facility] 2023-03-11 2023-03-11 Emergency David Becker 1.2.840.1 [id number] 2 [id number] Methodi 10:05:00 12:06:[address] 3.430.2.7 Hospit a .3.146924 l .8 2023-03-11 2023-03-11 Emergency David Becker 1.2.840.1 [id number] 2 [id number] [facility] 10:05:00 12:06:[address] 3.430.2.7 Hospit a .3.854439 l .8 2022-12-31 2022-12-31 Emergency Gemignani, 1.2.840.1 [id number] 2 [id number] Methodi 12:48:00 15:01:00 Bhargav Rodas [address]47.1.[address] 3.430.2.7 Hospit a .3.043761 l .8 2022-12-31 2022-12-31 Emergency Gemignani, 1.2.840.1 [id number] 2 [id number] Methodi 12:48:00 15:01:00 [address] 3.430.2.7 Hospit a .3.614830 l .8 2022-12-31 2022-12-31 Travel 1.2.840.1 1.2.185.124 [id number] [id number] Methodi 00:00:00 00:00:[address] 3.430.2.7 0.2.7.3.698 Ho spita .3.033563 084.8 l .8 2022-12-31 2022-12-31 Travel 1.2.840.1 1.2.148.469 6629 [id number] Methodi 00:00:00 00:00:[address] 3.430.2.7 0.2.7.3.698 Ho spita .3.361969 084.8 l .8 2022-12-01 2022-12-01 Emergency Christine, 1.2.840.1 [id number] Methodi 14:02:00 16:47:[address] [place] 3.430.2.7 Hospi ta .3.532493 l .8 2022-12-01 2022-12-01 Emergency Christine, 1.2.840.1 [id number] Methodi 14:02:00 16:47:[address] [place] 3.430.2.7 Hospi ta .3.345989 l .8 2022-12-01 2022-12-01 Travel 1.2.840.1 1.2.936.665 1601 [id number] Methodi 00:00:00 00:00:[address] 3.430.2.7 0.2.7.3.698 Ho spita .3.149208 084.8 l .8 2022-12-01 2022-12-01 Travel 1.2.840.1 1.2.605.170 [id number] [id number] Methodi 00:00:00 00:00:[address] 3.430.2.7 0.2.7.3.698 Ho spita .3.662824 084.8 l .8 2022-06-23 2022-06-24 Emergency Isidro, 1.2.840.1 [id number] Methodi 20:41:00 06:17:00 Abimbola H 01606.1.[address] 3.430.2.7 Hospit a .3.371996 l .8 2022-06-23 2022-06-23 Travel 1.2.840.1 1.2.060.267 0301 [id number] Methodi 00:00:00 00:00:[address] 3.430.2.7 0.2.7.3.698 Ho spita .3.583016 084.8 l .8 2022-05-14 2022-05-14 Emergency Fragoso, 1.2.840.1 [id number] Methodi 08:02:00 08:37:00 [place] 88661.1.[address] [place] 3.430.2.7 Hospit a .3.273312 l .8 2022-05-14 2022-05-14 Travel 1.2.840.1 1.2.600.514 8442 [id number] Methodi 00:00:00 00:00:[address] 3.430.2.7 0.2.7.3.698 Ho spita .3.323448 084.8 l .8 2022-05-05 2022-05-05 Emergency EM Regina Ruiz HCAC[facility] CHASITY [id number] [facility] 09:09:00 09:40:00 47 [facility] 2022-05-05 2022-05-05 Emergency EM DarkRegina HCACL HCACL [id number] [facility] 09:09:00 09:40:00 [id number] [facility] 2022-03-16 2022-03-17 Emergency Kendig, 1.2.840.1 [id number] Methodi 22:26:00 01:14:[address] Mehran 3.430.2.7 Hosp kerry .3.900975 l .8 2022-03-03 2022-03-03 Emergency Fonseca-Kaleb 1.2.840.1 [id number] Methodi 07:35:00 09:19:[address] 3.430.2.7 Hospit a .3.733598 l .8 2022-01-02 2022-01-02 Emergency de Hernandez, 1.2.840.1 [id number] 21 [id number] Methodi 17:02:00 18:15:[address] Rhett 3.430.2.7 Hospit a .3.909171 l .8 2022-01-02 2022-01-02 Travel 1.2.840.1 1.2.432.040 [id number] Methodi 00:00:00 00:00:[address] 3.430.2.7 0.2.7.3.698 Ho spita .3.456229 084.8 l .8 2021-12-26 2021-12-26 Emergency EM Catarino, CHRIS CHASITY [id number] [facility] 09:46:00 12:31:00 Christopher [id number] [facility] 2021-12-26 2021-12-26 Emergency EM Catarino, [id number] [facility] 09:46:00 12:31:00 Brooks 88 Cl [facility] 2021-11-25 2021-11-26 Emergency Edwardo, 1.2.840.1 [id number] [id number] Methodi 22:58:00 00:58:00 Andi 77296.1.1 475 [facility] 3.430.2.7 Hospit a .3.318705 l .8 2021-04-10 2021-04-10 Emergency EDWARDO, [place] [address] [id number] 65 [place] 00:00:00 00:00:00 ANDI 595 Method i 2021-04-05 2021-04-06 Emergency EM Timpano, HCACL CHASITY [id number] [facility] 23:38:00 02:26:00 [place] [id number] [facility] 2021-03-12 2021-03-12 Emergency EARL, [place] [address] [id number] 47 [place] 00:00:00 00:00:00 KALIF 048 Method i 2021-02-27 2021-02-28 Inpatient BARAJAS, [place] [address] [id number] 769 [place] 00:00:00 00:00:00 QUENTIN 164 Method i 2021-02-16 2021-02-16 Emergency LOPEZ, [place] [address] [id number] 38 [place] 00:00:00 00:00:00 ANDI 405 Method i 2020-12-28 2020-12-28 Emergency ISIDRO, [place] [address] [id number] 558 [place] 00:00:00 00:00:00 ABIMBOLA 175 Method i 2020-07-14 2020-07-14 Emergency EDWARDO, [facility] [id number] 48 [place] 00:00:00 00:00:00 ANDI 585 Method i 2020-05-15 2020-05-15 Emergency NORINSKY, [place] [address] [id number] [place] 00:00:00 00:00:00 BELTRAN 343 Meth janelle 2020-04-28 2020-04-28 Emergency GLEN, [facility] 064 [id number] 90 [place] 00:00:00 00:00:00 KIMBERLY 038 Method i 2020-02-18 2020-02-18 Emergency VANDER [place] [address] [id number] 64 [place] 00:00:00 00:00:00 MEULEN, 573 Method i DANIELA malin Results Test Description Test Time Test Comments Results Result Comments Source ECG 12 lead 2023-05-11 20:45:47 Test Item Value Reference Range Interpretation Comme nts Ventricular rate (test code = 253) 68 Atrial rate (test code = 255) 68 CT interval (test code = 266) 162 QRSD [...] of 17-MAR-2022 00:38,-No significant change was found- [address]2023-08-14 20:45:47 Test Item Value Reference Range Interpretation Comments Ventricular rate (test 68 code = 253) Atrial rate (test code 68 = 255) CT interval (test code 162 = 266) QRSD [...] of 17-MAR-2022 00:38,-No significant change was found- [address]2023-08-14 20:45:47 Test Item Value Reference Range Interpretation Comments Ventricular rate (test 68 code = 253) Atrial rate (test code 68 = 255) CT interval (test code 162 = 266) QRSD [...] of 17-MAR-2022 00:38,-No significant change was found- [address]2023-08-14 20:45:47 Test Item Value Reference Range Interpretation Comments Ventricular rate (test 68 code = 253) Atrial rate (test code 68 = 255) CT interval (test code 162 = 266) QRSD [...] of 17-MAR-2022 00:38,-No significant change was found- [address]2023-08-14 20:45:47 Test Item Value Reference Range Interpretation Comments Ventricular rate (test 68 code = 253) Atrial rate (test code 68 = 255) CT interval (test code 162 = 266) QRSD [...] of 17-MAR-2022 00:38,-No significant change was found- [facility] 14:05:00 Test Item Value Reference Range Interpretation Comments Urine culture (test SEE COMMENT Bacteriu kp screen code = 5127011) negative. [facility]2023-07-06 14:05:00 Test Item Value Reference Range Interpretation Comments Urine culture (test SEE COMMENT Bacteriu kp screen code = 9101402) negative. [facility]2023-07-06 14:05:00 Test Item Value Reference Range Interpretation Comments Urine culture (test SEE COMMENT Bacteriu kp screen code = 0679031) negative. [facility]2023-07-06 14:05:00 Test Item Value Reference Range Interpretation Comments Urine culture (test SEE COMMENT Bacteriu kp screen code = 9516386) negative. [facility]2023-07-06 14:05:00 Test Item Value Reference Range Interpretation Comments Urine culture (test SEE COMMENT Bacteriu kp screen code = 9179765) negative. [address]2022-06-29 20:01:10 Test Item Value Reference Range Interpretation Comments Ventricular rate (test code = 253) Atrial rate (test code = 255) CT interval (test code = 266) QRSD interval [...] of 03-MAR-2022 07:42,-No significant change was found- [address]2022-06-29 20:01:10 Test Item Value Reference Range Interpretation Comments Ventricular rate (test code = 253) Atrial rate (test code = 255) CT interval (test code = 266) QRSD interval [...] of 03-MAR-2022 07:42,-No significant change was found- [facility] screen [id number] 11:15:00 Test Item Value Reference Range Interpretation Comments Strep screen No beta hemolytic Specimen culture Streptococci InformationSpec imen isolate (test isolated Source: Throat Specimen code = 547-0) [facility] screen [id number] 11:15:00 Test Item Value Reference Range Interpretation Comments Strep screen No beta hemolytic Specimen culture Streptococci InformationSpec imen isolate (test isolated Source: Throat Specimen code = 547-0) [facility]- XR WRIST 3 + V [id number] 00:00:00 [facility] 1990 Sex: F FAX: Winnie Martinez [phone] [place]: St: REG Name: REYNA EARLY [facility] : 1990 Age/S: 31/F [address] [place] [address] Unit #: [id number] Loc: [place] [address] Phys: Winnie Begum Acct: [id number] Dis Date: Status: REG ER PHONE #: [phone] Exam Date: 12/26/2021 1015 FAX #: [phone] Reason: wrist pain EXAMS: CPT CODE: [id number] XR WRIST 3 + V LT 73962 PROCEDURE INFORMATION: Exam: XR Left Wrist Exam date and time: 12/26/2021 10:15 AM Age: 31 years old Clinical indication: Other: Wrist pain TECHNIQUE: Imaging protocol: XR Left wrist. Views: 3 or more views. Frontal Oblique Lateral COMPARISON: No relevant prior studies available. FINDINGS: Bones/joints: Thereis no fracture or dislocation. The joint spaces are maintained. Soft tissues: Unremarkable. There are no radiopaque foreign bodies. Notes: If there is further concern, follow-up radiographs, CT or MRI may be obtained for complete assessment. IMPRESSION: Normal radiographs. at 1120 Reported and signed by: Kendrick Watkins M.D. CC: Winnie BAL [facility] Technologist: LIANA Baker) Trnscrd Date/Time/By: 12/26/2021 (1120) : By : Jase Orig Print D/T: S: 12/26/2021 (1121) PAGE 1 Signed Report- XR CHEST 1 [id number] 00:48:00 [facility] : 1990 Sex: F FAX: Torrey Javed MD [phone] [place]: St: REG FAX: Anca Smyth [facility] [phone] -- Name: REYNA EARLY [facility] Amari Willson : 1990 Age/S: 30/F [address] [place] [address] Unit #: [id number] Loc: [place] [address] Phys: Anca Smyth Acct: [id number] Dis Date: Status: REG ER PHONE #: [phone] Exam Date: 04/06/202141 FAX #: [phone] Reason: cough EXAMS: CPT CODE: [id number] XR CHEST 1 V 91111 Study: - XR CHEST 1 V 04/06/2021 12:21 AM Patient Name: REYNA EARLY MR: [id number] : 1990; Age: 30 years y/o Female [...] Anca Smyth Technologist: RT Magalie(Ronit) TrnscrdDate/Time/By: 04/06/2021 (004) : By: [email or web address] Orig Print D/T: S: 04/06/2021 (50) PAGE 1 Signed ReportCoronavirus 2018 nCoV [id number] 00:35:00 Test Item Value Reference Range Interpretation Comments Coronavirus 2018 NEGATIVE Negative Negative re sults should be nCoV Bedside (test treated a s presumptive and, code = ifinconsistent with [id number]) clinical signs and symptoms or necessaryfor patient management, nancy uld be tested with an alternativemole cular assay. Negative result s do not preclude FCMG-DiF-6golwm tion and should not be u sed as the sole basis forp atient management deci sions. Negative result s should beconsidered in the context of a patient's recent exposures,histo ry, presence of clinical sig ns and symptoms consis tentwith COVID-19. 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 (test code = 58963-0) Whether the patient has symptoms related to condition of interest (test code = 53424-5) Patient was hospitalized because of this condition (test code = 65717-6) Whether the patient was admitted to intensive care unit (ICU) for condition of interest (test code = 16453-6) Whether patient resides in a congregate care setting (test code = 48260-4) [facility]) RNA [Presence] in Respiratory specimen by KEENAN with probe [id number] 01:13:01 Test Item Value Reference Range Interpretation Comments SARS-CoV-2 (COVID-19) RNA Not detected Not-Detected [Presence] in Respiratory specimen by KEENAN with probe detection (test code = 25000-3) [facility]- XR CHEST 2 [id number] 20:09:00 Name: REYNA EARLY BETI : 1990 Age/S:29 /F [address] [facility] Unit#:[id number] Loc: [place] [address] Phys: Enrico Davies MD Dis Date: PHONE #: [phone] Status: REG ER FAX #: [phone] Exam Date: 10/21/2019 Reason: cough EXAMS: CPT CODE: [id number] XR CHEST 2 V 97559 REASON FOR EXAM: cough Exam Order Date: [...] 10/21/2019 (2011) PAGE 1 Signed ReportCAPILLARY BLOOD [id number] 18:20:00 Test Item Value Reference Range Interpretation Comments TOTAL CO2 CONTENT TEST NOT 24.0-30.0 N Previously reported (test code = TCO2) PERFORMED MMOL/L resul t: 29.0 MMOL/LEdited by : THOMAS on 02/01/19:556039 9 1808: TCO2 previously repo rted as: [...] code = PCO2C) mmHgEdited by: THOMAS on 02/01/19:146473 9 8: CBG PCO 2 previously repo rted as: 66 *H mmHg CAPILLARY BLOOD TEST NOT 30-50 N Previously r eported GAS PO2 (test code PERFORMED mmHg result: 39 = PO2C) mmHgEdited by: THOMAS on 02/01/19: 9 1808: CBG PO2 previously repo rted as: 39 [...] by GAS PEEP (test PERFORMED cmH2O certified scrap drop crane operator code = PEEPC) [facility] CtrPreviously reported result : [id number] by: [email or web address] on 03/07/19:1820 03/07/19 182: PEEP previously repo rted as: cmH2O Perfo rmed by certified scrap drop crane operator [facility]trPreviously reported result : 7 [id number] by: THOMAS on 02/01/19: 9 1808: PEEP previously repo rted as: 7 cmH2O Performed by certified opera tor at [facility] CBG TEMPERATURE TEST NOT Previously r eported (test code = PERFORMED F result: 98.0 FE dited TEMPC) by: THOMAS o n 02/01/19:1808: TEMPC previously repo rted as: 98.0 F CAPILLARY BLOOD TEST NOT Previously r eported GAS SITE (test PERFORMED result: Heel Edited code = SITEC) by: THOMAS on 02/01/19:1808: SITE previously repo rted as: Heel VENOUS BLOOD [id number] 18:19:00 Test Item Value Reference Range Interpretation [...] y PEEP (test code PERFORMED cmH2O certified scrap drop crane operator at = PEEPV) [facility] CtrPreviously reported result : [id number] by: SERGIO on 03/07/19:181803/07/191818: VBG PEEP previously reported as: cm H2O Performed by certified opera tor at [facility] CtrPreviously reported result : 5 [id number] by: THOMAS on 02/01/19:180902/01/191809: VBG PEEP previously reported as: 5 cmH2O Performed by certified opera tor at [facility] VENOUS BLOOD GAS TEST [...] rted as: 29 - CT ABD PELVIS W/[id number] 00:56:00 Name: REYNA EARLY : 1990 Age/S: 28 / F [address] [place] [address] Unit #: [id number] Loc: [place] [address] Phys: Winnie Begum ENGINE DISPATCHER Acct: [id number] Dis Date: Status: REG ER PHONE #: [phone] Exam Date: 02/07/2019 0037 FAX #: [phone] Reason: s/p , upper abd pain and fevers. EXAMS: CPT CODE: [id number] CT ABD PELVIS W/CONT 77029 EXAM: CT, CT ABDOMEN PELVIS W CONTRAST: [...] PAGE 1 Signed Report (CONTINUED) Name: REYNA EARLYDOB: 1990 Age/S: 28 / F [address] [place] [address] Unit #: [id number] Loc: [place] [address] Phys: Winnie Begum ENGINE DISPATCHER Acct: [id number] Dis Date: Status: REG ER PHONE #: [phone] Exam Date: 02/07/2019 0037 FAX #: [phone] Reason: s/p c- section, upper abd pain and fevers. EXAMS: CPT CODE: [id number] CT ABD PELVIS W/CONT 28695 (Continued) slight anterior listhesis of L5 on [...] NP Technologist:RT Tigre(R) CTDI: DLP: TrnscbDate/Time: 02/07/2019 (005) [email or web address] Orig Print D/T: S: 02/07/2019 (005) PAGE 2 Signed Report COMPREHENSIVE METABOLIC [id number] 23:40:00 Test Item Value Reference Range Interpretation [...] TOTAL (test code = ALKP) COMPREHENSIVE METABOLIC [id number] 23:36:00 Test Item Value Reference Range Interpretation [...] TOTAL (test code = ALKP) CBC W/AUTO [id number] 23:33:00 Test Item Value Reference Range Interpretation [...] REQUIRED (test NO code = MDIFF) SURGICAL [id number] 08:10:00 RUN DATE: 02/04/19 [facility] *LIVE* PAGE 1 RUN TIME: 0810 Specimen Inquiry RUN USER: INTERFACE -------- ----PATIENT: REYNA EARLY LOC: AGUSTINA U #: [id number] AGE/SX: 28/F [facility]19OL[facility] DR: Gabriel Torres MD : [birth year] BED: 1 DIS: STATUS: ADM IN TLOC: SPEC #: [id number] RECD: 02/02/19 STATUS: NASIM RUSSO #: [id number] [place]: 02/02/19 [facility] DR: Gabriel Torres MD ENTERED: 02/03/19 SP TYPE: SURG SPEC OTHR DR: Self Referred Erick Carbajal MD, JR, Patrick MDORDERED: GM LEVEL 4 CODES: [id number] - FALLOPIAN TUBE UO4643 - PLACENTA, NOS COPIES TO: Self Referred Gabriel Torres MD [address] [place] [id number] [email or web address] Erick Carbajal MD [address] [id number] [email or web address] Roderick Varela MD [address] [address] PROCEDURES: GM LEVEL 4 (Incomplete) TISSUES: 1. [...] ON NEXT PAGE RUN DATE: 02/04/19 [facility] *LIVE* PAGE 2 RUN TIME: 0810 Specimen Inquiry RUN USER: INTERFACE SPEC #: [id number] PATIENT: REYNA EARLY #[id number] (Kate hamilton) GROSS AND MICROSCOPIC GROSS EXAMINATION: Received in [...] bilateral tubal ligation, delivered Signed SIGNATURE ON Domenico Colindres Erick DO 02/04/1910 END OF REPORT CBC W/AUTO [id number] 07:37:00 Test Item Value Reference Range Interpretation [...] MDIFF) COMMENTS: POD #1 and #2COMPREHENSIVE METABOLIC [id number] 05:40:00 Test Item Value Reference Range Interpretation [...] code = ALKP) COMMENTS: POD #1CBC W/AUTO [id number] 05:36:00 Test Item Value Reference Range Interpretation [...] MDIFF) COMMENTS: POD #1 and #2VENOUS BLOOD [id number] 18:10:00 Test Item Value Reference Range Interpretation Comments VENOUS BLOOD GAS PH 7.33-7.45 Previous ly reported (test code = PHV) result: 7. 11 Edited by: THOMAS on 02/01/19:1808: PH previo usly reported as: 7. 11 L VENOUS BLOOD GAS PCO2 mmHg 43-47 Previo usly reported (test code = PCO2V) result: 82 mmHgEdited by: THOMAS on 02/01/19:2727631808: VENOUS PC O2 previously repo rted as: [...] med by certified (test code = PEEPV) scrap drop crane operator at [facility] CtrPrevious ly reported result : 5 [id number] by: THOMAS on 02/01/19:181 0 02/01/191809: VBG PEEP previously reported as: 5 cmH2O Performed by ce rtified scrap drop crane operator at [facility] VENOUS BLOOD GAS TEMP F Previo usly reported (test code = TEMPV) result: 97.6 FEdited by: THOMAS on 02/01/19:1809: TEMPV pre viously reported as: 97 .6 F VENOUS BLOOD GAS SITE Other (test code = SITEV) VENOUS TCO2 (test Previously reported code = TCO2V) result: 29 Gamal lon by: THOMAS on 02/01/19:1809: TCO2V pre viously reported as: 29 CAPILLARY BLOOD [id number] 18:09:00 Test Item Value Reference Range Interpretation [...] d by certified PEEP (test code = scrap drop crane operator lily FitzpatrickRidgeway PEEPC) [facility] CtrPrevious ly reported result : 7 [id number] by: THOMAS on 02/01/19:1808: PEEP prev iously reported as: 7 cmH2O Performed by ce rtified scrap drop crane operator at [facility] CBG TEMPERATURE (test F Previo usly reported code = TEMPC) result: 98.0 F Edited by: THOMAS on 02/01/19:1808: TEMPC pre viously reported as: 98 .0 F CAPILLARY BLOOD GAS Previous ly reported SITE (test code = result: He el Edited by: SITE) THOMAS on 02/01/19:1808: SITE prev iously reported as: Edgar ballard CAPILLARY BLOOD [id number] 17:48:00 Test Item Value Reference Range Interpretation [...] d by PEEP (test code = certified scrap drop crane operator PEEPC) at [facility] CBG TEMPERATURE (test 98.0 F code = TEMPC) CAPILLARY BLOOD GAS Heel SITE (test code = SITEC) VENOUS BLOOD [id number] 14:27:00 Test Item Value Reference Range Interpretation [...] by (test code = PEEPV) certifie d scrap drop crane operator at [facility] VENOUS BLOOD GAS TEMP 97.6 F (test code = TEMPV) VENOUS BLOOD GAS SITE Other (test code = SITEV) VENOUS TCO2 (test 29 code = TCO2V) CORD ARTERIAL BLOOD [id number] 14:03:00 Test Item Value Reference Range Interpretation [...] O2S/C) 9 % 25-45 L COMPREHENSIVE METABOLIC [id number] 17:24:00 Test Item Value Reference Range Interpretation [...] N TOTAL (test code = ALKP) URIC [id number] 17:24:00 Test Item Value Reference Range Interpretation Comments URIC ACID (test code = URIC) 4.6 mg/dL 2.6-7.2 N LACTIC DEHYDROGENASE(LDH)2019-01-31 17:24:00 Test Item Value Reference Range Interpretation Comments LACTIC DEHYDROGENASE(LDH) (test 154 IUnits/L 84-246 N code = LDH) URINALYSIS [id number] 17:09:00 Test Item Value Reference Range Interpretation [...] MUCU) TRACE /LPF NONE SEEN CBC W/AUTO [id number] 17:04:00 Test Item Value Reference Range Interpretation [...] (test NO code = MDIFF) COMPREHENSIVE METABOLIC [id number] 23:53:00 Test Item Value Reference Range Interpretation [...] N TOTAL (test code = ALKP) URIC [id number] 23:53:00 Test Item Value Reference Range Interpretation Comments URIC ACID (test code = URIC) 4.2 mg/dL 2.6-7.2 N LACTIC DEHYDROGENASE(LDH)2019-01-26 23:53:00 Test Item Value Reference Range Interpretation Comments LACTIC DEHYDROGENASE(LDH) (test 144 IUnits/L 84-246 N code = LDH) DRUGS OF ABUSE SCREEN [id number] 23:45:00 Test Item Value Reference Range Interpretation [...] ed for non-medical pur poses. AMNISURE (ROM) [id number] 23:43:00 Test Item Value Reference Range Interpretation Comments AMNISURE (ROM) TEST (test NEGATIVE NEGATIVE OP ENED:12/05/2018 code = AMNI) COMPREHENSIVE METABOLIC [id number] 23:39:00 Test Item Value Reference Range Interpretation [...] 20-125 TOTAL (test code = ALKP) URIC [id number] 23:39:00 Test Item Value Reference Range Interpretation Comments URIC ACID (test code = URIC) 4.2 mg/dL 2.6-7.2 N LACTIC DEHYDROGENASE(LDH)2019-01-26 23:39:00 Test Item Value Reference Range Interpretation Comments LACTIC DEHYDROGENASE(LDH) (test IUnits/L 84-246 code = LDH) DRUGS OF ABUSE SCREEN [id number] 23:36:00 Test Item Value Reference Range Interpretation [...] us ed for non-medical pur poses. URINALYSIS [id number] 23:31:00 Test Item Value Reference Range Interpretation [...] MUCU) TRACE /LPF NONE SEEN CBC W/AUTO [id number] 23:26:00 Test Item Value Reference Range Interpretation [...] REQUIRED (test NO code = MDIFF) URINALYSIS [id number] 14:32:00 Test Item Value Reference Range Interpretation [...] MUCU) TRACE /LPF NONE SEEN COMPREHENSIVE METABOLIC [id number] 14:30:00 Test Item Value Reference Range Interpretation [...] N TOTAL (test code = ALKP) URIC [id number] 14:30:00 Test Item Value Reference Range Interpretation Comments URIC ACID (test code = URIC) 4.3 mg/dL 2.6-7.2 N LACTIC DEHYDROGENASE(LDH)2019-01-20 14:30:00 Test Item Value Reference Range Interpretation Comments LACTIC DEHYDROGENASE(LDH) (test 128 IUnits/L 84-246 N code = LDH) COMPREHENSIVE METABOLIC [id number] 14:20:00 Test Item Value Reference Range Interpretation [...] 20-125 TOTAL (test code = ALKP) URIC [id number] 14:20:00 Test Item Value Reference Range Interpretation Comments URIC ACID (test code = URIC) 4.3 mg/dL 2.6-7.2 N LACTIC DEHYDROGENASE(LDH)2019-01-20 14:20:00 Test Item Value Reference Range Interpretation Comments LACTIC DEHYDROGENASE(LDH) (test IUnits/L 84-246 code = LDH) CBC W/AUTO [id number] 14:06:00 Test Item Value Reference Range Interpretation [...] (test NO code = MDIFF) RAPID PLASMA [id number] 12:19:00 Test Item Value Reference Range Interpretation Comments RAPID PLASMA REAGIN (test code = NONREACTIVE NONREACTIVE RPR) AG HEPATITIS B [id number] 12:19:00 Test Item Value Reference Range Interpretation Comments AG HEPATITIS B SURFACE NON REACTIVE INDEX NonReactive (test code = HBSAG) AB HIV 1 12:19:00 Test Item Value Reference Range Interpretation Comments AB HIV 1 2 (test code = NONREACTIVE INDEX NONREACTIVE [id number]) COMPREHENSIVE METABOLIC [id number] 05:49:00 Test Item Value Reference Range Interpretation [...] N TOTAL (test code = ALKP) URIC [id number] 05:49:00 Test Item Value Reference Range Interpretation Comments URIC ACID (test code = URIC) 4.4 mg/dL 2.6-7.2 N LACTIC DEHYDROGENASE(LDH)2019-01-08 05:49:00 Test Item Value Reference Range Interpretation Comments LACTIC DEHYDROGENASE(LDH) (test 110 IUnits/L 84-246 N code = LDH) COMPREHENSIVE METABOLIC [id number] 05:43:00 Test Item Value Reference Range Interpretation [...] 20-125 TOTAL (test code = ALKP) URIC [id number] 05:43:00 Test Item Value Reference Range Interpretation Comments URIC ACID (test code = URIC) 4.4 mg/dL 2.6-7.2 N LACTIC DEHYDROGENASE(LDH)2019-01-08 05:43:00 Test Item Value Reference Range Interpretation Comments LACTIC DEHYDROGENASE(LDH) (test IUnits/L 84-246 code = LDH) URINALYSIS [id number] 05:35:00 Test Item Value Reference Range Interpretation [...] = 1+ /HPF NONE A YEASTUBD) URINALYSIS [id number] 05:33:00 Test Item Value Reference Range Interpretation [...] 1+ /HPF NONE A YEASTUBD) CBC W/AUTO [id number] 05:25:00 Test Item Value Reference Range Interpretation [...] (test code NO = MDIFF) - [place] [id number] 00:53:00 Name: CHU EARLYWHITLEY BETI [facility] : 1990 Age/S: 28 / F [address] [place] [address] Unit #: [id number] Loc: [place] [address] Phys: Jayme Christianson MD Acct: [id number] Dis Date: Status: ADM IN PHONE #: [phone] Exam Date: 01/07/2019 0009 FAX #: [phone] Reason: Hardto find FHT EXAMS: CPT CODE: [id number] [place] LTD 42987 EXAM: US, US LTD: 01/07/2019, 2356 hours [...] Valeria Marr RDMS(Lily) Trnscb Date/Time: 01/08/2019 (005) Guzman.[email or web address] Orig Print D/T: S: 01/08/2019 (0056) Probe: PAGE 1 Signed ReportRAPID PLASMA [id number] 21:20:00 Test Item Value Reference Range Interpretation Comments RAPID PLASMA REAGIN (test code = RPR) NONREACTIVE AG HEPATITIS B [id number] 21:20:00 Test Item Value Reference Range Interpretation Comments AG HEPATITIS B SURFACE NON REACTIVE INDEX NonReactive (test code = HBSAG) AB HIV 1 21:20:00 Test Item Value Reference Range Interpretation Comments AB HIV 1 2 (test code = NONREACTIVE INDEX NONREACTIVE [id number]) RAPID PLASMA [id number] 16:37:00 Test Item Value Reference Range Interpretation Comments RAPID PLASMA REAGIN (test code = RPR) NONREACTIVE AG HEPATITIS B [id number] 16:37:00 Test Item Value Reference Range Interpretation Comments AG HEPATITIS B SURFACE NON REACTIVE INDEX NonReactive (test code = HBSAG) AB HIV 1 16:37:00 Test Item Value Reference Range Interpretation Comments AB HIV 1 2 (test code = ZHW11TE) INDEX NONREACTIVE CBC W/AUTO [id number] 16:23:00 Test Item Value Reference Range Interpretation [...] (test NO code = MDIFF) COMPREHENSIVE METABOLIC [id number] 16:19:00 Test Item Value Reference Range Interpretation [...] N TOTAL (test code = ALKP) URINALYSIS [id number] 16:14:00 Test Item Value Reference Range Interpretation [...] = MUCU) TRACE /LPF NONE SEEN URINALYSIS [id number] 13:59:00 Test Item Value Reference Range Interpretation [...] /LPF NONE SEEN - XR CHEST 2 [id number] 11:56:00 FAX: Gabriel Gomez [phone] [place]: St: REG FAX: Shanice Mccarthy DO Name: REYNA EARLY [facility] : 1990 Age/S: 28/F [address] [place] [address] Unit #: [id number] Loc: [place] [address] Phys: Shanice Mccarthy DO Acct: [id number] Dis Date: Status: REG ER PHONE #: [phone] Exam Date: 12/15/2018 1152 FAX #: [phone] Reason: cough EXAMS: CPT CODE: [id number] XR CHEST 2 V 06671 CHEST RADIOGRAPHS - PA AND LATERAL: COMPARISON: [...] Technologist: Annie Jenkins RT(R) Trnscrd Date/Time/By: 12/15/2018 (0360) : By: [email or web address] Orig Print D/T: S: 12/15/2018 (2520) PAGE 1 Signed Report- XR CHEST 1 [id number] 22:02:00 FAX: Gabriel Gomez [phone] [place]: St: REG FAX: Zain Andres MD [phone] - Name: REYNA EARLY [facility] : 1990 Age/S: 28/F [address] [place] [address] Unit #: [id number] Loc: [place] [address] Phys: Zain Harris MD Acct: [id number] Dis Date: Status: REG ER PHONE#: [phone] Exam Date: 12/12/20182199 FAX #: [phone] Reason: cough EXAMS: CPT CODE: [id number] XR CHEST 1 V 71468 SINGLE VIEW RADIOGRAPH CHEST INDICATION: cough. TECHNIQUE: [...] By: [email or web address] Orig Print D/T: S: 12/12/2018 (6788) PAGE 1 Signed ReportURINALYSIS [id number] 15:23:00 Test Item Value Reference Range Interpretation [...] /LPF NONE SEEN DRUGS OF ABUSE SCREEN [id number] 11:29:00 Test Item Value Reference Range Interpretation [...] ed for non-medical pur poses. COMPREHENSIVE METABOLIC [id number] 11:20:00 Test Item Value Reference Range Interpretation [...] TOTAL (test code = ALKP) COMPREHENSIVE METABOLIC [id number] 11:19:00 Test Item Value Reference Range Interpretation [...] code = ALKP) DRUGS OF ABUSE SCREEN [id number] 11:14:00 Test Item Value Reference Range Interpretation [...] us ed for non-medical pur poses. URINALYSIS [id number] 10:58:00 Test Item Value Reference Range Interpretation [...] MUCU) TRACE /LPF NONE SEEN CBC W/AUTO [id number] 10:50:00 Test Item Value Reference Range Interpretation [...] NO code = MDIFF) - US RETROPERITONEAL [id number] 08:56:00 Name: NNEKASHANNONJEANETTE [facility] : 1990 Age/S: 28 / F [address] [place] [address] Unit #: [id number] Loc: [place] [address] Phys: La Nena Dong MD Acct: [id number] Dis Date: Status: REG ER PHONE #: [phone] Exam Date: 11/25/2018 0851 FAX #: [phone] Reason: left flank pain EXAMS: CPT CODE: [id number] US RETROPERITONEAL COM 19572 EXAM: US RETROPERITONEAL COMPLETE DATE: 11/25/2018 7:25 [...] Evaluation is limited due to pain. SL: [id number] PAGE 1 Signed Report (CONTINUED) Name: REYNA EARLY [facility] [place] : 1990 Age/S: 28 / F [address] [facility] Unit #: [id number] Loc: [place] [address] Phys: La Nena Dong MD Acct: [id number] Dis Date: Status: REG ER PHONE #: [phone] Exam Date: 11/25/2018 0851 FAX #: [phone] Reason: left flank pain EXAMS: CPT CODE: [id number] US [facility] COM 56384 (Continued) at 0856 Reported and signed by: Carloz Farrell D.O. CC: Gabriel Torres MD; Marcial Schultz MD; La Nena Dong MD Technologist: Dilcia Hickey RDMS(BR)(AB) Trnmnb Date/Time: 11/25/2018 (0856) [email or web address] Orig Print D/T: S: 11/25/2018 (0859) Probe: PAGE 2 Signed Report- XR CHEST 1 [id number] 19:22:00 FAX: Violeta Marie DO [phone] [place]: St: REG FAX: Gabriel Gomez [phone] --- Name: REYNA EARLY [facility] Amari Willson : 1990 Age/S: 28/F [address] [place] [address] Unit #: [id number] Loc: [address] [address] Phys: Violeta Grijalva DO Acct: [id number] Dis Date: Status: REG ER PHONE #: [phone] Exam Date: 11/10/2018 190 FAX #: [phone] Reason: cough/chest pain EXAMS: CPT CODE: [id number] XR CHEST 1 V 26082 EXAM: Single view portable AP chest. EXAM [...] No acute cardiopulmonary f indings identified. at 1921 Reported and signed by: Duyen Barajas M.D. CC: Violeta Rudi ; Gabriel Torres MD Technologist: RT Kodi(R); RT Jaime (R) Trnmnrd Date/Time/By: 11/10/2018 (1921) : By: Gasper Orig [...] SEEN QNS NOTIFIED JEAN MCKNIGHT 1819- US [id number] 19:01:00 Name: REYNA EARLY [facility] : 1990 Age/S: 28 / F [address] [place] [address] Unit#: [id number] Loc: [place] [address] Phys: Violeta Grijalva DO Acct: [id number] Dis Date: Status: REG ER PHONE #: [phone] Exam Date: 11/10/2018 1831 FAX #: [phone] Reason: abdominal pain/ chest pain EXAMS: CPT CODE: [id number] US LTD 24031 Exam: Limited obstetric ultrasound. Exam date: November [...] this be performed perla nonemergent basis. at 190 Reported and signed by: Duyen Barajas M.D. CC: Violeta Torres MD Technologist: Miriam Majano RDMS (AB) (OB) Trnscb Date/Time: 11/10/2018 (1900) [email or web address] Orig Print D/T: S: 11/10/2018 (1903) Probe: PAGE 1 Signed ReportCOMPREHENSIVE METABOLIC [id number] 18:39:00 Test Item Value Reference Range Interpretation [...] TOTAL (test code = ALKP) CBC W/AUTO [id number] 18:25:00 Test Item Value Reference Range Interpretation [...] code NO = MDIFF) - DOP VEIN [id number] 18:47:00 Name: REYNA EARLY [facility] : 1990 Age/S: 18 / F [address] [place] [address] Blvd Unit #: [id number] Loc: [place] [address] Phys: Joselin Alvarez MD Acct: [id number] Dis Date: Status: UNK PHONE #: [phone] Exam Date: 12/21/20081842 FAX #: [phone] Reason: 36WK IUP SWELLING RLE EXAMS: CPT CODE: [id number] DOP VEIN VERNON 59045 Bilateral lower extremity venous Doppler: HISTORY: , [...] Larissa Olivas RDMS(A)(OB) Trnscb Date/Time: 12/21/2008 (1847) [email or web address] Orig Print D/T: S: 12/21/2008 (1848) Probe: PAGE 1 Signed Report
[2023-08-04] MEDS ORDERED: NA CHLORIDE 0.9% 1,000 ML ONE ×2 (08:54→15:44)
[2023-08-04] MEDS ORDERED: MORPHINE 4 MG/ML SYR ONE ×2 (08:54→09:53)
[2023-08-04] MEDS ORDERED: FAMOTIDINE 20 MG/2 ML VIAL IV ONE (08:54)
[2023-08-04 08:56] LABS: Absolute Lymphocytes (CBC) 2.8 K/uL (0.7-4.9); Lymphocytes % 29.9 % (15.3-44.8); MCV 90.4 fL (80-100); MPV 8.1 fL (7.6-11.3); Platelets 353 thou/uL (152-406); RBC Red Blood Cell Count 4.53 M/uL (3.86-4.86)
[2023-08-04 09:21] LABS: Albumin 3.7 g/dL (3.4-5.0); Bilirubin Total 0.2 mg/dL (0.2-1.0); Potassium 3.9 mEq/L (3.5-5.1); Protein, Total 8.1 g/dL (6.4-8.2)
--- NOTE | 2023-08-04 09:26 | RAD REPORT ---
EXAM DESCRIPTION: CT - Abdomen Pelvis W Contrast - 08/04/2023 8:53 am CLINICAL HISTORY: Abdominal pain COMPARISON: none. TECHNIQUE: Computed axial tomography of the abdomen pelvis was obtained. 100 cc Isovue-300 was admin istered intravenously. Oral contrast was not requested which limits evaluation of bowel and appendix All CT scans are performed using dose optimization technique as appropriate and may include automated exposure control or mA/KV adjustment according to patient size. FINDINGS: The liver, spleen, pancreas, adrenal and left kidney appear unremarkable. Several small nonobstructing right renal calculi There is no evidence of diverticulitis. Mild anterior subluxation of L5 on S1. Spondylolysis L5. Sclerosis involves vertebral endplates. Vacu um phenomena noted. Large periumbilical hernia contains fat The most superior slice demonstrates a 6 millimeter nodule right middle lobe. Multiple gallstones. A stone is lodged within the junction of the cystic duct and gallbladder neck. G allbladder wall does not appear to be significantly thickened. Normal appendix. No evidence of diverticulitis. No adnexal mass IMPRESSION: Cholelithiasis. A gallstone is lodged within junction of the neck and cystic duct 6 millimeter right middle lobe nodule. Follow-up the CT in 1 year recommended per Clement hobbslin es
[2023-08-04] MEDS ORDERED: NA CHLORIDE 0.9% 250 ML ONE (09:34)
[2023-08-04] MEDS ORDERED: PROMETHAZINE INJ 25 MG/ML AMP ONE ×2 (09:34→16:00)
--- NOTE | 2023-08-04 11:01 | EDPHYS ---
Physician Documentation [facility] Name: Qasim Resendez Age: 32 yrs Sex: Female : 1990 Arrival Date: 08/04/2023 Time: 08:01 Bed 2 Private MD: ED Physician Adenike Farrell HPI: 08/04 08:36 This 32 yrs old Female presents to ER via Ambulatory with complaints of Abdominal Pain. snw 08:36 The patient presents with abdominal pain in the right upper quadrant. Onset: The snw symptoms/episode began/occurred acutely. The symptoms radiate to the right flank. Associated signs and symptoms: Pertinent positives: nausea. The symptoms are described as sharp. Modifying factors: The symptoms are alleviated by nothing. Severity of pain: At its worst the pain was moderate severe. The patient has experienced similar episodes in the past, multiple times, with the last episode occurring 2 week(s) ago, but today's symptoms are worse. The patient has not recently seen a physician. Pt with appt with Surgeon in [place] on Thursday but the pain was so severe she could not wait. 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 - Social history:: Smoking status: Patient denies any tobacco usage or history of. ROS: 08:38 Constitutional: Negative for fever, chills, and weight loss, Eyes: Negative for injury, snw pain, redness, and discharge, ENT: Negative for injury, pain, and discharge, Neck: Negative for injury, pain, and swelling, Cardiovascular: Negative for chest pain, palpitations, and edema, Respiratory: Negative for shortness of breath, cough, wheezing, and pleuritic chest pain, : Negative for injury, bleeding, discharge, and swelling, MS/Extremity: Negative for injury and deformity, Skin: Negative for injury, rash, and discoloration, Neuro: Negative for headache, weakness, numbness, tingling, and seizure, Psych: Negative for depression, anxiety, suicide ideation, homicidal ideation, and hallucinations, 08:38 Abdomen/GI: Positive for abdominal pain, nausea, 08:38 Back: 08:38 Back: Positive for radiated pain, of the right mid back, Exam: 08:38 Constitutional: This is a well developed, well nourished patient who is awake, alert, snw and in no acute distress. Head/Face: Normocephalic, atraumatic. Eyes: Pupils equal round and reactive to light, extra-ocular motions intact. Lids and lashes normal. Conjunctiva and sclera are non-icteric and not injected. Cornea within normal limits. Periorbital areas with no swelling, redness, or edema. ENT: Nares patent. No nasal discharge, no septal abnormalities noted. Tympanic membranes are normal and external auditory canals are clear. Oropharynx with no redness, swelling, or masses, exudates, or evidence of obstruction, uvula midline. Mucous membranes moist. Neck: Trachea midline, no thyromegaly or masses palpated, and no cervical lymphadenopathy. Supple, full range of motion without nuchal rigidity, or vertebral point tenderness. No Meningismus. Chest/axilla: Normal chest wall appearance and motion. Nontender with no deformity. No lesions are appreciated. Cardiovascular: Regular rate and rhythm with a normal S1 and S2. No gallops, murmurs, or rubs. Normal PMI, no JVD. No pulse deficits. Respiratory: Lungs have equal breath sounds bilaterally, clear to auscultation and percussion. No rales, rhonchi or wheezes noted. No increased work of breathing, no retractions or nasal flaring. Back: No spinal tenderness. No costovertebral tenderness. Full range of motion. Skin: Warm, dry with normal turgor. Normal color with no rashes, no lesions, and no evidence of cellulitis. MS/ Extremity: Pulses equal, no cyanosis. Neurovascular intact. Full, normal range of motion. Neuro: Awake and alert, GCS 15, oriented to person, place, time, and situation. Cranial nerves II-XII grossly intact. Motor strength 5/5 in all extremities. Sensory grossly intact. Cerebellar exam normal. Normal gait. Psych: Awake, alert, with orientation to person, place and time. Behavior, mood, and affect are within normal limits. 08:38 Abdomen/GI: Inspection: obese Bowel sounds: normal, Palpation: moderate abdominal tenderness, in the posterior aspect of right lateral abdomen and right upper quadrant, Vital Signs: 08:28 Weight 122.47 kg; Height 5 ft. 4 in. ; Pain 8/10; jl7 09:19 BP 139 / 67; Pulse 53; Resp 18 S; Pulse Ox 100% on R/A; kc6 10:09 BP 137 / 64; Pulse 60; Resp 17; Pulse Ox 98% on R/A; rs5 11:01 BP 142 / 70; Pulse 55; Resp 17; Pulse Ox 99% on R/A; rs5 08:28 Body Mass Index 46.34 (122.47 kg, 162.56 cm) jl7 08:28 Pain Scale: Adult jl7 MDM: 08:23 Patient medically screened. snw 08:39 Differential diagnosis: cholecystitis, Cholelithiasis, pancreatitis. Data reviewed: snw vital signs, nurses notes. I considered the following discharge prescriptions or medication management in the emergency department Medications were administered in the Emergency Department. See NOV. 11:02 Management of patient was discussed with the following: Ballistician: Dr. Dennis - [place] on license of [facility] NPO for surgery today if OR available. 08/04 08:28 Order name: CBC with Diff; Complete Time: 09:08 snw 08/04 08:28 Order name: CMP; Complete Time: 09:29 snw 08/04 08:28 Order name: Lipase; Complete Time: 09:29 snw 08/04 08:28 Order name: Test, Urine; Complete Time: 09:08 snw 08/04 11:08 Order name: Basic Metabolic Panel EDMS 08/04 11:08 Order name: Basic Metabolic Panel EDMS 08/04 11:08 Order name: CBC with Automated Diff EDMS 08/04 11:08 Order name: CBC with Automated Diff EDMS 08/04 11:08 Order name: Lipase EDMS 08/04 11:08 Order name: Lipase EDMS 08/04 11:08 Order name: Liver (Hepatic) Function EDMS 08/04 11:08 Order name: Liver (Hepatic) Function EDMS 08/04 08:28 Order name: CT Abd/Pelvis - IV Contrast Only; Complete Time: 09:29 snw 08/04 08:28 Order name: IV Saline Lock; Complete Time: 09:14 snw 08/04 08:28 Order name: Labs collected and sent; Complete Time: 09:14 snw Administered Medications: 08:40 Drug: NS 0.9% IV 1000 ml IV at 1 bolus Per protocol; 1000 mL bolus Route: IV; Rate: 1 rs5 bolus; Site: right antecubital; 09:00 Follow up: Response: No adverse reaction rs5 08:40 Drug: Famotidine IVP 20 mg IVP once; dilute with 10 mL 0.9% NaCl; give over 2 minutes rs5 Route: IVP; Site: right antecubital; 09:05 Follow up: Response: No adverse reaction; Pain is unchanged, physician notified rs5 09:26 Follow up: Response: No adverse reaction; Pain is unchanged, physician notified kc6 08:45 Drug: morphine IVP or IV 4 mg IVP once over 4 mins Route: IVP; Infused Over: 4 mins; rs5 Site: right antecubital; 09:05 Follow up: Response: No adverse reaction; Pain is unchanged, physician notified; RASS: rs5 Alert and Calm (0) 09:26 Drug: Promethazine IVP 12.5 mg IVP once; in 250ml NS Route: IVP; Site: right kc6 antecubital; 10:00 Follow up: Response: No adverse reaction; Nausea is decreased rs5 09:26 Drug: NS 0.9% IV 250 ml IV at bolus once Route: IV; Rate: bolus; Site: right kc6 antecubital; 10:00 Follow up: Response: No adverse reaction rs5 09:40 Drug: morphine IVP or IV 4 mg IVP once over 4 mins Route: IVP; Infused Over: 4 mins; rs5 Site: right antecubital; 10:02 Follow up: Response: No adverse reaction; Pain is decreased rs5 11:08 Drug: Piperacillin-Tazobactam IVPB 3.375 grams IVPB once over 60 mins; (mix in NS 100 rs5 mL) Route: IVPB; Infused Over: 60 mins; Site: left antecubital; 11:30 Follow up: Response: No adverse reaction rs5 Disposition Summary: 08/04/23 11:01 Hospitalization Ordered Notes: Hospitalization Status: Inpatient Admission snw Provider: Kovacev, Brennan snw Location: Telemetry/MedSurg (Inpatient) snw Condition: Stable snw Problem: an acute exacerbation snw Symptoms: are unchanged snw Bed/Room Type: Standard snw Room Assignment: snw Diagnosis - Calculus of gallbladder and bile duct without cholecystitis with obstruction snw - Other specified abdominal hernia without obstruction or gangrene snw Forms: - Medication Reconciliation Form snw - SBAR form snw - Leadership Thank You Letter snw Signatures: Dispatcher [employer] EDMS Libby Saez FNP-C BIOMED TECH-Csnw Elaine Hickey RN RN jl7 Mahi Espinoza RN RN kc6 Jermaine Yoo RN RN rs5
--- NOTE | 2023-08-04 11:01 | ER ---
Nurse's Notes [facility] Name: Qasim Resendez Age: 32 yrs Sex: Female : 1990 Arrival Date: 08/04/2023 Time: 08:01 Bed 2 Private MD: Diagnosis: Calculus of gallbladder and bile duct without cholecystitis with obstruction;Other specified abdominal hernia without obstruction or gangrene Presentation: 08/04 08:23 Chief complaint: Patient states: RUQ abd pain, lita. scheduled for Thursday, can't take jl7 the pain. Coronavirus screen: At this time, the client does not indicate any symptoms associated with coronavirus-19. Ebola Screen: No symptoms or risks identified at this time. Initial Sepsis Screen: Does the patient meet any 2 criteria? No. Patient's initial sepsis screen is negative. Does the patient have a suspected source of infection? No. Patient's initial sepsis screen is negative. Risk Assessment: Do you want to hurt yourself or someone else? Patient reports no desire to harm self or others. Onset of symptoms is unknown. 08:23 Method Of Arrival: Ambulatory [facility] 08:23 Acuity: ELÍAS 3 jl7 Triage Assessment: 08:25 General: Appears in no apparent distress. uncomfortable, Behavior is calm, cooperative. 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 - Social history:: Smoking status: Patient denies any tobacco usage or history of. Screenin:27 [facility] ED Fall Risk Assessment (Adult) History of falling in the last 3 months, kc6 including since admission No falls in past 3 months (0 pts) Confusion or Disorientation No (0 pts) Intoxicated or Sedated No (0 pts) Impaired Gait No (0 pts) Mobility Assist Device Used No (0 pt) Altered Elimination No (0 pt) Score/Fall Risk Level 0 - 2 = Low Risk. Abuse screen: Denies threats or abuse. Denies injuries from another. Nutritional screening: No deficits noted. Tuberculosis screening: No symptoms or risk factors identified. Assessment: 08:22 General: Appears in no apparent distress. uncomfortable, Behavior is calm, cooperative. rs5 08:22 Pain: Complains of pain in right upper quadrant Pain does not radiate. Pain currently rs5 is 8 out of 10 on a pain scale. Quality of pain is described as aching, Pain began 2-3 days ago. Is continuous. Neuro: Level of Consciousness is awake, alert, obeys commands, Oriented to person, place, time, situation. Cardiovascular: Heart tones S1 S2 present Rhythm is regular. Respiratory: Airway is patent Respiratory effort is even, unlabored, Respiratory pattern is regular, symmetrical, Breath sounds are clear bilaterally. GI: Bowel sounds present X 4 quads. Abd is soft X 4 quads Reports nausea. : No signs and/or symptoms were reported regarding the genitourinary system. : No signs and/or symptoms were reported regarding the genitourinary system. EENT: No signs and/or symptoms were reported regarding the EENT system. Derm: Skin is intact, Skin is pink, warm \T\ dry. Musculoskeletal: Range of motion: intact in all extremities. 08:45 Reassessment: To bedside for med adm. rs5 09:05 Reassessment: Patient states feeling better. Pain: Complains of pain in right upper rs5 quadrant Pain currently is 2 out of 10 on a pain scale. Quality of pain is described as aching, Is continuous. 09:30 Pain: Complains of pain in right upper quadrant Pain does not radiate. Pain currently rs5 is 7 out of 10 on a pain scale. 09:30 Reassessment: Provider notified pt is experiencing pain. rs5 10:00 Pain: Complains of pain in right upper quadrant Pain currently is 3 out of 10 on a pain rs5 scale. Quality of pain is described as aching. 11:00 Reassessment: Patient and/or family updated on plan of care and expected duration. Pain rs5 level reassessed. Patient is alert, oriented x 3, equal unlabored respirations, skin warm/dry/pink. 11:22 Reassessment: Patient and/or family updated on plan of care and expected duration. Pain rs5 level reassessed. Patient is alert, oriented x 3, equal unlabored respirations, skin warm/dry/pink. Vital Signs: 08:28 Weight 122.47 kg; Height 5 ft. 4 in. ; Pain 8/10; jl7 09:19 BP 139 / 67; Pulse 53; Resp 18 S; Pulse Ox 100% on R/A; kc6 10:09 BP 137 / 64; Pulse 60; Resp 17; Pulse Ox 98% on R/A; rs5 11:01 BP 142 / 70; Pulse 55; Resp 17; Pulse Ox 99% on R/A; rs5 08:28 Body Mass Index 46.34 (122.47 kg, 162.56 cm) jl7 08:28 Pain Scale: Adult jl7 ED Course: 08:04 Patient arrived in ED. mg5 08:23 Libby Saez FNP-C is PHCP. snw 08:23 Adenike Farrell MD is Attending Physician. snw 08:24 Triage completed. jl7 08:25 Inserted saline lock: 20 gauge in right antecubital area, using aseptic technique. rs5 Blood collected. 08:29 Arm band placed on right wrist. Patient placed. jl7 08:38 Jermaine Yoo, RN is Primary Nurse. rs5 08:54 CT Abd/Pelvis - IV Contrast Only In Process Unspecified. EDMS 09:27 Patient has correct armband on for positive identification. Bed in low position. Call kc6 light in reach. Side rails up X 1. Client placed on continuous cardiac and pulse oximetry monitoring. NIBP monitoring applied. 10:00 Inserted saline lock: 20 gauge in left antecubital area, using aseptic technique. rs5 10:58 Brennan Dennis MD is Hospitalizing Provider. snw 11:40 No provider procedures requiring assistance completed. Patient admitted, IV remains in rs5 place. Administered Medications: 08:40 Drug: NS 0.9% IV 1000 ml IV at 1 bolus Per protocol; 1000 mL bolus Route: IV; Rate: 1 rs5 bolus; Site: right antecubital; 09:00 Follow up: Response: No adverse reaction rs5 08:40 Drug: Famotidine IVP 20 mg IVP once; dilute with 10 mL 0.9% NaCl; give over 2 minutes rs5 Route: IVP; Site: right antecubital; 09:05 Follow up: Response: No adverse reaction; Pain is unchanged, physician notified rs5 09:26 Follow up: Response: No adverse reaction; Pain is unchanged, physician notified kc6 08:45 Drug: morphine IVP or IV 4 mg IVP once over 4 mins Route: IVP; Infused Over: 4 mins; rs5 Site: right antecubital; 09:05 Follow up: Response: No adverse reaction; Pain is unchanged, physician notified; RASS: rs5 Alert and Calm (0) 09:26 Drug: Promethazine IVP 12.5 mg IVP once; in 250ml NS Route: IVP; Site: right kc6 antecubital; 10:00 Follow up: Response: No adverse reaction; Nausea is decreased rs5 09:26 Drug: NS 0.9% IV 250 ml IV at bolus once Route: IV; Rate: bolus; Site: right kc6 antecubital; 10:00 Follow up: Response: No adverse reaction rs5 09:40 Drug: morphine IVP or IV 4 mg IVP once over 4 mins Route: IVP; Infused Over: 4 mins; rs5 Site: right antecubital; 10:02 Follow up: Response: No adverse reaction; Pain is decreased rs5 11:08 Drug: Piperacillin-Tazobactam IVPB 3.375 grams IVPB once over 60 mins; (mix in NS 100 rs5 mL) Route: IVPB; Infused Over: 60 mins; Site: left antecubital; 11:30 Follow up: Response: No adverse reaction rs5 Medication: 11:40 VIS not applicable for this client. rs5 Outcome: 11:01 Decision to Hospitalize by Provider. snw 11:40 Admitted to OR accompanied by nurse, via stretcher, on monitor, with chart, rs5 11:40 Condition: stable 11:40 Instructed on the need for admit, Demonstrated understanding of instructions, 11:43 Patient left the ED. aa5 Signatures: Dispatcher [employer] EDLibby Carroll FNP-C STONE FABRICATOR-Barbara Tipton RN RN aa5 Elaine Hickey RN RN jaxon7 Mahi Espinoza RN RN kc6 Jermaine Yoo RN RN rs5 Laura Clayton mg5 Corrections: (The following items were deleted from the chart) 11:54 09:26 Response: No adverse reaction; Pain is unchanged, physician notified; RASS: Alert rs5 and Calm (0) kc6 11:54 09:26 Response: No adverse reaction; Pain is unchanged, physician notified kc6 rs5
[2023-08-04] MEDS ORDERED: ACETAMINOPHEN 500 MG TAB PO PRN (11:04)
[2023-08-04] MEDS ORDERED: ONDANSETRON 4 MG/2 ML VIAL IV PRN (11:04)
[2023-08-04] MEDS ORDERED: D5 0.45 NS 1,000 ML IV SCH (12:00)
[2023-08-04] MEDS ORDERED: NA CHLORIDE 0.9% 100 ML ONE (12:21)
[2023-08-04] MEDS ORDERED: PIPERACIL/TAZO 3.375 GM VIAL IV ONE (12:21)
[2023-08-04] MEDS ORDERED: MIDAZOLAM HCL 2 MG/2 ML INJ ONE ×2 (12:31→16:44)
[2023-08-04] MEDS ORDERED: FENTANYL CITR 100 MCG/2 ML ONE ×3 (12:31→16:44)
[2023-08-04] MEDS ORDERED: LIDOCAINE 2% MPF 5 ML VIAL ONE (12:31)
[2023-08-04] MEDS ORDERED: propofoL 200 MG/20 ML VIAL IV ONE ×2 (12:31→16:44)
[2023-08-04] MEDS ORDERED: ROCURONIUM 50 MG/5 ML VIAL IV ONE (12:31)
[2023-08-04] MEDS ORDERED: ONDANSETRON 4 MG/2 ML VIAL ONE ×3 (12:57→16:45)
[2023-08-04] MEDS: BUPIVACAINE 0.25% PF 30 ML VIAL ONE ×2 (13:39→13:54)
[2023-08-04] MEDS ORDERED: dexAMETHasone 10 MG/ML VIAL ONE (13:48)
[2023-08-04] MEDS ORDERED: EPHEDRINE SULF 50 MG/ML VIAL ONE (13:52)
[2023-08-04] MEDS ORDERED: GLYCOPYRROLATE 0.2 MG/ML SYR ONE ×2 (14:03→14:47)
[2023-08-04] MEDS ORDERED: HYDROMORPHONE HCL 1 MG/ML INJ ONE ×2 (14:28→18:34)
--- NOTE | 2023-08-04 14:48 | P.OP ---
Preoperative diagnosis: Acute Cholecystitis with cholelithiasis Postoperative diagnosis: Acute Cholecystitis with cholelithiasis Primary procedure: Laparoscopic Cholecystectomy with ICG cholangiography Anesthesia: GETA + Local Estimated blood loss: <5 cc Specimen: Gallbladder Findings: Acute calculous cholecystits Complications: None Transferred to: Recovery Room Condition: Good
[2023-08-04] MEDS ORDERED: KETOROLAC 30 MG/ML INJ ONE (14:50)
[2023-08-04] MEDS: HYDROMORPHONE HCL 1 MG/ML INJ ONE ×2 (15:10→15:15)
[2023-08-04] MEDS: FENTANYL CITR 100 MCG/2 ML ONE ×4 (15:20→15:35)
[2023-08-04] MEDS: D5.45NS W/KCL 20MEQ 1,000 ML IV SCH ×2 (15:24→20:11)
[2023-08-04] MEDS ORDERED: MEPERIDINE HCL 25 MG/ML SYR ONE ×2 (15:51→18:34)
[2023-08-04] MEDS: MORPHINE 2 MG/ML SYR IV PRN ×2 (16:16→20:10)
[2023-08-04] MEDS: INSULIN REGULAR (HUMAN) 100 UNIT/ML SQ SCH ×2 (16:30→21:00)
[2023-08-04 16:43] VITALS: BMI 46.3
[2023-08-04] MEDS ORDERED: LIDOCAINE 1% MPF 5 ML VIAL ONE (16:44)
[2023-08-04] MEDS ORDERED: dexAMETHasone 4 MG/ML VIAL ONE (16:44)
[2023-08-04] MEDS ORDERED: INFLUENZA VACCINE (for 6+ mo) 0.5 ML DOSE IMVAC ONE (18:00)
[2023-08-04] MEDS: HYDROCODONE/APAP 7.5/325 MG TAB PO PRN ×2 (18:07→22:04)
[2023-08-04] MEDS: PIPER TAZO 3.375 GM in NA CHLORIDE 0.9% 100 ML IV SCH (18:08)
--- NOTE | 2023-08-04 18:45 | OP ---
Date of Procedure: 08/04/2023 Surgeon: Brennan Dennis MD, Preoperative Diagnosis: Acute calculous cholecystitis. Postoperative Diagnosis: Acute calculous cholecystitis Procedure Performed: Laparoscopic cholecystectomy with indocyanine green cholangiography. Anesthesia: General endotracheal plus local with 0.25% Marcaine. Estimated Blood Loss: Less than 5 cc. Specimen: Gallbladder. Findings: Acute calculous cholecystitis, short cystic duct, partially intrahepatic gallbladder. Disposition: The patient was transferred to recovery room in good condition. Procedure In Detail: After informed consent was obtained, the patient was brought to the operating r oom, prepped and draped in the usual sterile fashion. After adequate anesthesia was achieved, I made an incision in the right upper quadrant down to the subcutaneous tissues. I knew the patient had a previous history of a ventral umbilical hernia, which had not been repaired and as such, I palpated t his and found this to be consistent. Therefore, I opted for a different approach. The area of the r ight upper quadrant was sharply incised. A 5 mm 0-degree optical trocar was introduced in the abdome n without evidence of complication, insufflation to 15 mmHg at this time. There was no injury to vit al structures upon entry into the abdomen. I then placed a 12 mm trocar in the superolateral to the umbilicus and a safe zone was seen visually under direct visualization without evidence of complicati on. Two additional trocars were placed, 5 mm trocars, one in the epigastrium and one in the right mi d abdomen. Both of these were similarly anesthetized and sharply incised. A 5 mm trocar was placed under direct visualization with no evidence of complication. In total 4 trocars were placed, all 5 m m trocars except for the periumbilical which is a 12 mm trocar. The patient was positioned head up r ight-side up position. Ratcheted graspers were used to grasp the patient's gallbladder and placed it towards the patient's right shoulder. Dissection continued down to the Brinda pouch of the gallbl adder, identifying 2 structures identified as both cystic duct and cystic artery. The cystic duct wa s quite short. ICG cholangiography confirmed the anatomic position of this. At this point, I placed double titanium clips on the proximal side and singly on the distal side of both cystic duct and cys tic artery. After they were completely skeletonized, a critical view of safety was obtained. At thi s point, these structures were ligated using Endo Jermain. I then removed the gallbladder fossa witho ut evidence of complication. Gallbladder was then placed in EndoCatch bag, removed through the umbil ical trocar site and sent off for pathologic examination. The abdomen was re-insufflated at this poi nt. The area was copiously irrigated in the hepatic fossa. No leakage of bile was appreciated. Ind ocyanine green cholangiography was performed once again. It showed no leakage of bile. There was no hemostat required and the effluent was completely crystal clear. The clips were found to be in good anatomic position. The patient was positioned back in neutral position. Then, effluent was suction ed out. I then closed the periumbilical trocar site using a Shahzad-Babita suture passer with 0 Jose Alfredo ryl in an interrupted fashion with good approximation of tissues. The abdomen was completely desuffl ated under direct visualization with no evidence of complication. The remaining trocars were removed . All skin sites were then copiously irrigated and closed with 4-0 Monocryl in a running fashion. D ermabond was placed over top. The patient tolerated the procedure well without evidence of complicat ion and transferred to PACU in good condition. All counts were correct at the end of the case. EZIO/CESARIO Voice ID: [id number] Report ID: [id number]
--- NOTE | 2023-08-04 20:45 | HP ---
Date of Admission: 08/04/2023 Brief History Of Present Illness: The patient is a 32-year-old female, known to me from previous enc ounters in clinic, whereby she came to the clinic with a history of gallstones. I had recommended la paroscopic cholecystectomy, however, she had an insurance issue and as such, she sought a different p samir, who was in network. She never ultimately got that managed and as such, she come to the [facility] room with a 2-week course of worsening right upper quadrant intermittent abdominal pain. It go t significantly worse over the past day or so after eating greasy food and got significantly sharp in the right upper quadrant with nausea and vomiting, radiation through to the back, similar to her pre vious episodes, but intensity was significantly increased. Past Medical History: Significant for gallstones, kidney stones, hypothyroidism, and umbilical herni a. Past Surgical History: , ligation of fallopian tube, and tonsillectomy. Allergies: NO KNOWN DRUG ALLERGIES. Social History: She denies smoking, alcohol, or recreational drug use. Review of Systems: Ten-point review of systems other than HPI, denies. Physical Examination: General: At the time of examination, she is awake, alert, and oriented. Psychiatric: She is appropriate, conversive. HEENT: She is normocephalic. Sclerae anicteric. Mucous membranes moist. Oropharynx clear. Neck: Supple. No JVD. Chest: Normal expansion and excursion. Cardiovascular: Regular rate and rhythm. Pulmonary: Clear to auscultation bilaterally. Abdomen: Soft with positive right upper quadrant tenderness to palpation. Positive rebound. Positi ve Silva sign. Positive palpable umbilical hernia, which is incisional umbilical hernia. Extremities: No clubbing, cyanosis, or edema. Skin: Warm and dry. Vital Signs: Her blood pressure at the time of my examination 134/62, pulse 63, respiratory rate 18, temperature 97.0, SpO2 of 95% on room air. Laboratory Data: Reveals a white blood cell count of 9.2, hemoglobin of 13.9, hematocrit of 41.0, pl atelet count was 353. Her neutrophils are 56%. Her sodium 139, potassium 3.9, chloride of 110, carb on dioxide is 30, BUN 11, creatinine 0.8, glucose is 96. Total bilirubin 0.2. AST is 18, ALT is 24, alkaline phosphatase is 89, lipase was 23. Urine test is negative. She had a CT scan per formed of the abdomen and pelvis, officially read as cholelithiasis, gallstones lodged in the junctio n of the neck of the cystic duct, 6 mm right middle lobe nodule. Followup 1 year recommended. Assessment And Plan: This is a 32-year-old female, who presents with recurrent episode of biliary co lic and symptomatic cholelithiasis. 1.IV fluid hydration. 2.Zosyn 3.375 IV. 3.I have explained the risks, benefits, and alternatives of laparoscopic possible open cholecystecto my with indocyanine green cholangiography including, but not limited to bleeding, infection, damage t o surrounding tissues, injury to bile ducts and intestines, blood clots, heart attack, strokes, and o ther unforeseen complications in the perioperative period including related to anesthesia, need for f urther operation or procedures. The patient agrees to proceed as indicated. EZOI/CESARIO Voice ID: [id number]
[2023-08-05] MEDS: MORPHINE 2 MG/ML SYR IV PRN ×4 (00:10→13:21)
[2023-08-05] MEDS: PIPER TAZO 3.375 GM in NA CHLORIDE 0.9% 100 ML IV SCH ×2 (01:00→08:52)
[2023-08-05] MEDS: D5.45NS W/KCL 20MEQ 1,000 ML IV SCH ×2 (01:24→06:23)
[2023-08-05] MEDS: HYDROCODONE/APAP 7.5/325 MG TAB PO PRN ×3 (02:02→10:52)
[2023-08-05 03:01] LABS: Absolute Lymphocytes (CBC) 0.8 K/uL (0.7-4.9); Hematocrit 36.7 % (36.0-45.0); Lymphocytes % 7.1 % (15.3-44.8); MCV 90.9 fL (80-100); MPV 8.4 fL (7.6-11.3); Platelets 290 thou/uL (152-406); RBC Red Blood Cell Count 4.03 M/uL (3.86-4.86)
[2023-08-05 03:16] LABS: Albumin 3.2 g/dL (3.4-5.0); Bilirubin Total 0.3 mg/dL (0.2-1.0); Phosphorus 2.4 mg/dL (2.5-4.9); Potassium 4.2 mEq/L (3.5-5.1); Protein, Total 7.1 g/dL (6.4-8.2)
[2023-08-05 04:33] LABS: Blood Morphology Comment NOT SEEN (NOT SEEN); Platelet Estimate ADEQ
[2023-08-05] MEDS: INSULIN REGULAR (HUMAN) 100 UNIT/ML SQ SCH ×2 (07:30→11:30)
[2023-08-05] MEDS: POTASS/SODIUM PHOSPHATE 1 PKT POWD.PACK PO SCH ×2 (08:53→10:52)
[2023-08-05] MEDS ORDERED: ENOXAPARIN 40 MG/0.4 ML SQ SCH (09:00)
[2023-08-05 11:15] VITALS: O2SAT 97
[2023-08-05 14:18] VITALS: BP 123/74; TEMP 98.4
== END 2023-08-05 14:30 | disposition home or self-care (01) ==
LOC: ER 08:01 → ERHOLD 11:06 → INTOOBSV 11:06 → 2ND 14:29
PROVIDERS: ADMIT Surgery; ATTEND Surgery
PROC: BF50200 Other Imaging of Bile Ducts using Fluorescing Agent, Indocyanine Green Dye, Intraoperative (ICD-10-PCS; 2023-08-04)
PROC: 0FT44ZZ Resection of Gallbladder, Percutaneous Endoscopic Approach (ICD-10-PCS; principal; 2023-08-04 13:30)
DX: K80.12 Calculus of gallbladder with acute and chronic cholecystitis without obstruction (principal); E03.9 Hypothyroidism, unspecified
CPT/HCPCS: 85025 ×2; 36415; 83735; 81025; 84100; 82947 ×4; 88304; 83690 ×2; 80053 ×2; 74177; 94010; 99285; 47563; Q9967; J2550; J2704 ×2; J1100 ×2; J2001 ×2; J2543 ×4; J1650; J2250 ×2; J3010 ×4; J2270 ×6; J2175; J1170 ×2; J2405 ×3; G0378 ×5; J7050; J7030 ×2

== ENCOUNTER → 2023-10-15 | Emergency (ER) | payer OTHER ==
[~2023-10-15] MED LIST: CEPHALEXIN 250 MG CAP ONE; SMZ./TMP. 800/160 MG TABLET ONE
[2023-10-15 12:26] LABS: Absolute Lymphocytes (CBC) 2.2 K/uL (0.7-4.9); Hematocrit 37.8 % (36.0-45.0); Lymphocytes % 25.5 % (15.3-44.8); MPV 7.8 fL (7.6-11.3); Platelets 298 thou/uL (152-406)
[2023-10-15 12:47] LABS: Albumin 3.2 g/dL (3.4-5.0); Bilirubin Total 0.3 mg/dL (0.2-1.0); Potassium 3.8 mEq/L (3.5-5.1); Protein, Total 7.1 g/dL (6.4-8.2)
[2023-10-15 12:56] LABS: Specific Gravity > 1.030 (1.005-1.030)
[2023-10-15 13:04] LABS: Urine Bacteria None Seen /HPF (<20); Urine Bilirubin NEGATIVE (Negative); Urine Blood 3+ (OVER) (Negative); Urine Clarity Clear (Clear); Urine Color Light-Yellow (Yellow); Urine Glucose NEGATIVE (Negative); Urine Mucus Slight /HPF (None Seen); Urine Protein TRACE (Negative); Urine RBC >50 /HPF (None Seen); Urine Urobilinogen Normal (Normal); Urine pH 6.5 (5.0-7.0)
[2023-10-15 13:08] LABS: Specific Gravity > 1.030 (1.005-1.030)
--- NOTE | 2023-10-15 13:11 | RAD REPORT ---
EXAM DESCRIPTION: CT - Abdomen Pelvis W Contrast - 10/15/2023 12:31 pm CLINICAL HISTORY: Abdominal pain COMPARISON: July 2023 TECHNIQUE: Computed axial tomography of the abdomen pelvis was obtained. 100 cc Isovue-300 was admin istered intravenously. Oral contrast was not requested which limits evaluation of bowel and appendix All CT scans are performed using dose optimization technique as appropriate and may include automated exposure control or mA/KV adjustment according to patient size. FINDINGS: The liver, spleen, pancreas, adrenal and left kidney appear unremarkable. Several small nonobstructing right renal calculi There is no evidence of diverticulitis. Mild anterior subluxation of L5 on S1. Spondylolysis L5. Sclerosis involves vertebral endplates. Vacu um phenomena noted. Cholecystectomy. Postsurgical changes umbilical hernia repair with inflammatory changes in the anterior subcutaneous f at with an air bubble. No fluid filled abscess Normal appendix. No evidence of diverticulitis. No adnexal mass IMPRESSION: Cholecystectomy. Postsurgical changes umbilical hernia repair. Stranding within the anterior subcutaneous fat with an air bubble. No fluid-filled abscess
--- NOTE | 2023-10-15 14:15 | EDPHYS ---
Physician Documentation [facility] Name: Qasim Resendez Age: 33 yrs Sex: Female : 1990 Arrival Date: 10/15/2023 Time: 11:15 Bed 17 Private MD: ED Physician Benson Gao HPI: 10/15 14:08 This 33 yrs old Female presents to ER via Ambulatory with complaints of Post Surgical ci Bleeding. 14:08 Patient is a 33-year-old female who presents with abdominal pain and surgical site ci discharge that began a few days ago. Patient is s/p cholecystectomy [address] Luna and umbilical hernia repair [address] Martin in [place]. Patient reports that cholecystectomy site has been red, swollen and painful. Today she had a gush of purulent drainage come out of incision site. Denies any fever, chills, urinary symptoms, nausea/vomiting.. Historical: - Allergies: 11:26 No Known Allergies; iw - PMHx: 11:26 GALLSTONES; Hypothyroidism; Kidney stone; iw - PSHx: 11:26 section; Ligation of fallopian tube; Tonsillectomy; Cholecystectomy; iw - Immunization history:: Adult Immunizations up to date. - Social history:: Smoking status: Patient denies any tobacco usage or history of. ROS: 14:08 Constitutional: Negative for body aches, chills, fatigue, fever, malaise, ci 14:08 Cardiovascular: Negative for chest pain, edema, orthopnea, palpitations, 14:08 Respiratory: Negative for cough, dyspnea on exertion, hemoptysis, orthopnea, pleurisy, shortness of breath, 14:08 Abdomen/GI: Positive for abdominal pain, Negative for nausea, vomiting, and diarrhea, 14:08 Skin: Positive for cellulitis, erythema, Negative for diaphoresis, discoloration, rash, 14:08 Neuro: Negative for altered mental status, dizziness, headache, Exam: 14:08 Constitutional: This is a well developed, well nourished patient who is awake, alert, ci and in no acute distress. Head/Face: Normocephalic, atraumatic. Eyes: Pupils equal round and reactive to light, extra-ocular motions intact. Lids and lashes normal. Conjunctiva and sclera are non-icteric and not injected. Cornea within normal limits. Periorbital areas with no swelling, redness, or edema. ENT: Nares patent. No nasal discharge, no septal abnormalities noted. Tympanic membranes are normal and external auditory canals are clear. Oropharynx with no redness, swelling, or masses, exudates, or evidence of obstruction, uvula midline. Mucous membranes moist. Neck: Trachea midline, no thyromegaly or masses palpated, and no cervical lymphadenopathy. Supple, full range of motion without nuchal rigidity, or vertebral point tenderness. No Meningismus. Chest/axilla: Normal chest wall appearance and motion. Nontender with no deformity. No lesions are appreciated. Cardiovascular: Regular rate and rhythm with a normal S1 and S2. No gallops, murmurs, or rubs. Normal PMI, no JVD. No pulse deficits. Respiratory: Lungs have equal breath sounds bilaterally, clear to auscultation and percussion. No rales, rhonchi or wheezes noted. No increased work of breathing, no retractions or nasal flaring. Back: No spinal tenderness. No costovertebral tenderness. Full range of motion. MS/ Extremity: Pulses equal, no cyanosis. Neurovascular intact. Full, normal range of motion. Neuro: Awake and alert, GCS 15, oriented to person, place, time, and situation. Cranial nerves II-XII grossly intact. Motor strength 5/5 in all extremities. Sensory grossly intact. Cerebellar exam normal. Normal gait. 14:08 Skin: Warm, dry with normal turgor. Normal color with no rashes, no lesions, and no evidence of cellulitis. 14:08 Abdomen/GI: Abdomen is soft, nondistended with mild tenderness to palpation along incision site. Intra-abdominal incision site is erythematous, swollen, tender to palpation with mild purulent drainage. No rebound tenderness or guarding., Vital Signs: 11:23 BP 121 / 81; Pulse 74; Resp 16; Temp 98.2; Pulse Ox 100% on R/A; iw MDM: 11:29 Patient medically screened. ci 14:08 Differential Diagnosis Abdominal wall cellulitis, abscess, fistula, postoperative ci complication. Data reviewed: vital signs, lab test result(s), radiologic studies. Care significantly affected by the following chronic conditions: Hypothyroidism. Counseling: I had a detailed discussion with the patient and/or guardian regarding the need for outpatient follow up. Medication response: morphine markedly relieved the patient's pain. Symptoms have improved. Response to treatment: the patient's symptoms have markedly improved after treatment. 10/15 11:48 Order name: CBC with Diff; Complete Time: 13:30 ci 10/15 11:48 Order name: CMP; Complete Time: 13:30 ci 10/15 11:48 Order name: Lipase; Complete Time: 13:30 ci 10/15 11:48 Order name: Test, Urine; Complete Time: 13:30 ci 10/15 11:48 Order name: Urinalysis w/ reflexes; Complete Time: 13:30 ci 10/15 11:48 Order name: CT Abd/Pelvis - IV Contrast Only; Complete Time: 13:30 ci 10/15 13:30 Interpretation: Per Radiologist's finding(s): IMPRESSION: Cholecystectomy. ci Postsurgical changes umbilical hernia repair. Stranding within the anterior subcutaneous fat with an air bubble. No fluid-filled abscess. 10/15 11:48 Order name: IV Saline Lock; Complete Time: 11:52 ci 10/15 11:48 Order name: Labs collected and sent; Complete Time: 11:52 ci Administered Medications: 12:15 Drug: morphine IVP or IV 4 mg IVP once over 4 mins Route: IVP; Infused Over: 4 mins; iw Site: right antecubital; 13:47 Drug: Trimethoprim-Sulfamethoxazole PO (160 mg-800 mg (DS) 1 tablet PO once Route: PO; cp4 14:45 Drug: Cephalexin PO 500 mg PO once Route: PO; nj1 Disposition Summary: 10/15/23 14:15 Discharge Ordered Notes: Location: Home ci Condition: Stable ci Diagnosis - Cellulitis of abdominal wall ci Followup: ci - With: Private Physician - When: 1 - 2 days - Reason: Recheck today's complaints, Re-evaluation by your physician Discharge Instructions: - Discharge Summary Sheet ci - Cellulitis, Adult, Lchy-ke-Gjqi ci Forms: - Medication Reconciliation Form ci - Thank You Letter ci - Antibiotic Education ci - Prescription Opioid Use ci - Patient Portal Instructions ci - Leadership Thank You Letter ci Prescriptions: - Cephalexin 500 mg Oral Capsule - take 1 capsule ORAL route every 12 hours for 10 days; 20 capsule; Refills: 0, ci Product Selection Permitted - Bactrim DS 800-160 mg Oral tablet - take 1 tablet ORAL route every 12 hours for 5 days; 10 tablet; Refills: 0, ci Product Selection Permitted Signatures: Dispatcher [employer] Mounika Paredes RN RN Rishi Herrera RN RN ll1 Nanette Segura RN RN nj1 Lurdes Webb cp4 Iheonunekwu, Benson ci
--- NOTE | 2023-10-15 14:15 | ER ---
Nurse's Notes [facility] Name: Qasim Resendez Age: 33 yrs Sex: Female : 1990 Arrival Date: 10/15/2023 Time: 11:15 Bed 17 Private MD: Diagnosis: Cellulitis of abdominal wall Presentation: 10/15 11:23 Chief complaint: Patient states: had gallbladder and hernia repair in July, there iw has been a red spot around the surgical sites, today one of the sites opened up and had some blood and drainage , Jeannie did the lita, Dr. Kimball in [place] did the hernia repair. Coronavirus screen: At this time, the client does not indicate any symptoms associated with coronavirus-19. Ebola Screen: Patient negative for fever greater than or equal to 101.5 degrees Fahrenheit, and additional compatible Ebola Virus Disease symptoms Patient denies exposure to infectious person. Patient denies travel to an Ebola-affected area in the 21 days before illness onset. No symptoms or risks identified at this time. Initial Sepsis Screen: Does the patient meet any 2 criteria? No. Patient's initial sepsis screen is negative. Does the patient have a suspected source of infection? No. Patient's initial sepsis screen is negative. Risk Assessment: Do you want to hurt yourself or someone else? Patient reports no desire to harm self or others. Onset of symptoms was October 15, 2023. 11:23 Method Of Arrival: Ambulatory iw 11:23 Acuity: ELÍAS 3 iw Historical: - Allergies: 11:26 No Known Allergies; iw - PMHx: 11:26 GALLSTONES; Hypothyroidism; Kidney stone; iw - PSHx: 11:26 section; Ligation of fallopian tube; Tonsillectomy; Cholecystectomy; iw - Immunization history:: Adult Immunizations up to date. - Social history:: Smoking status: Patient denies any tobacco usage or history of. Screenin:21 [facility] ED Fall Risk Assessment (Adult) Score/Fall Risk Level 0 - 2 = Low Risk ll1 Oriented to surroundings, Maintained a safe environment, Educated pt \T\ family on fall prevention, incl call for assistance when getting out of bed, Hourly rounding (assess needs \T\ fall precautionary measures) done. Abuse screen: Denies threats or abuse. Nutritional screening: No deficits noted. Tuberculosis screening: No symptoms or risk factors identified. Assessment: 12:05 General: Appears uncomfortable, Behavior is calm, cooperative, appropriate for age. ll1 Pain: Complains of pain in healing incisions to mid abdomen Pain currently is 7 out of 10 on a pain scale. Quality of pain is described as aching. GI: Reports upper abdominal pain, cramping. Derm: slight dehiscence (<dime sized) of healing abdominal wound. Small amount of blood was on dressing. No drainage at this time. Reports pain. 12:15 Reassessment: No changes from previously documented assessment. Patient and/or family iw updated on plan of care and expected duration. Pain level reassessed. Patient is alert, oriented x 3, equal unlabored respirations, skin warm/dry/pink. 13:23 Reassessment: No changes from previously documented assessment. Patient and/or family ll1 updated on plan of care and expected duration. Pain level reassessed. Vital Signs: 11:23 BP 121 / 81; Pulse 74; Resp 16; Temp 98.2; Pulse Ox 100% on R/A; iw ED Course: 11:18 Patient arrived in ED. mr 11:26 Triage completed. iw 11:26 Arm band placed on. iw 11:29 Benson Gao is Attending Physician. ci 11:30 Rishi Connors, RN is Primary Nurse. ll1 11:30 Provided Education on: ER procedures and process. ll1 12:15 Inserted saline lock: 22 gauge in right antecubital area, using aseptic technique. iw Blood collected. 12:22 No provider procedures requiring assistance completed. ll1 12:33 CT Abd/Pelvis - IV Contrast Only In Process Unspecified. EDMS 13:02 Urinalysis w/ reflexes Sent. ll1 13:03 Patient has correct armband on for positive identification. Bed in low position. Call ll1 light in reach. 14:25 IV discontinued, intact, bleeding controlled. nj1 Administered Medications: 12:15 Drug: morphine IVP or IV 4 mg IVP once over 4 mins Route: IVP; Infused Over: 4 mins; iw Site: right antecubital; 13:47 Drug: Trimethoprim-Sulfamethoxazole PO (160 mg-800 mg (DS) 1 tablet PO once Route: PO; cp4 14:45 Drug: Cephalexin PO 500 mg PO once Route: PO; nj1 Medication: 12:22 VIS not applicable for this client. ll1 Outcome: 14:15 Discharge ordered by . ci 14:45 Patient left the ED. nj1 14:45 Discharged to home ambulatory, 14:45 Condition: stable 14:45 Discharge instructions given to patient, Instructed on discharge instructions, follow up and referral plans. Demonstrated understanding of instructions, follow-up care, medications, Prescriptions given X 2, Signatures: Dispatcher [employer] EDWV Selena Miller, Reg Reg mr Mounika Coon RN RN Rishi Connors RN RN 1 Nanette Segura RN RN nj1 Lurdes Webb cp4 Benson Gao ci Corrections: (The following items were deleted from the chart) 11:26 11:23 Pulse 74bpm; Resp 16bpm; Pulse Ox 100% RA; Temp 98.2F; iw 15:17 14:35 Discharged to home ambulatory, [place] [id number] 15:17 14:35 Condition: stable [place] [id number] 15:17 14:35 Discharge instructions given to patient, Instructed on discharge instructions, [facility] follow up and referral plans. Demonstrated understanding of instructions, follow-up care, medications, Prescriptions given X 2, or1 15:17 15:16 Patient left the ED. [place] [id number] 15:17 14:35 Patient left the ED. [place] [id number]
[2023-10-15 17:21] VITALS: BP 121/81; TEMP 98.2; O2SAT 100
== END ==
LOC: ER 11:15
DX: L03.311 Cellulitis of abdominal wall (principal); E03.9 Hypothyroidism, unspecified; N20.0 Calculus of kidney; Z90.49 Acquired absence of other specified parts of digestive tract
CPT/HCPCS: 85025; 81001; 36415; 81025; 83690; 80053; 74177; 96374; 99284; Q9967

== ENCOUNTER → 2023-10-27 | Emergency (ER) | payer OTHER ==
[~2023-10-27] MED LIST changes: -CEPHALEXIN 250 MG CAP ONE; +KETOROLAC 30 MG/ML INJ ONE; -SMZ./TMP. 800/160 MG TABLET ONE
[2023-10-27 10:44] LABS: Absolute Lymphocytes (CBC) 2.4 K/uL (0.7-4.9); Hematocrit 40.3 % (36.0-45.0); Lymphocytes % 27.5 % (15.3-44.8); MCV 90.4 fL (80-100); MPV 7.9 fL (7.6-11.3); Platelets 365 thou/uL (152-406); RBC Red Blood Cell Count 4.46 M/uL (3.86-4.86)
[2023-10-27 11:00] LABS: Albumin 3.4 g/dL (3.4-5.0); Bilirubin Total 0.3 mg/dL (0.2-1.0); Potassium 3.9 mEq/L (3.5-5.1); Protein, Total 7.5 g/dL (6.4-8.2)
--- NOTE | 2023-10-27 11:33 | ER ---
Nurse's Notes [facility] Name: Qasim Resendez Age: 33 yrs Sex: Female : 1990 Arrival Date: 10/27/2023 Time: 09:39 Bed 9 Private MD: Diagnosis: Abdominal wall cellulitis Presentation: 10/27 09:53 Chief complaint: Patient states: Surgical incision drainage started this morning; jl7 Nausea and diarrhea since yesterday. Reports incisional pain. Coronavirus screen: At this time, the client does not indicate any symptoms associated with coronavirus-19. Ebola Screen: No symptoms or risks identified at this time. Initial Sepsis Screen: Does the patient meet any 2 criteria? No. Patient's initial sepsis screen is negative. Does the patient have a suspected source of infection? No. Patient's initial sepsis screen is negative. Risk Assessment: Do you want to hurt yourself or someone else? Patient reports no desire to harm self or others. Onset of symptoms was October 27, 2023. 09:53 Method Of Arrival: Ambulatory [facility] 09:53 Acuity: ELÍAS 3 jl7 Triage Assessment: 09:55 General: Appears in no apparent distress. uncomfortable, Behavior is calm, cooperative, jl7 appropriate for age. Pain: Complains of pain in abdomen Pain currently is 6 out of 10 on a pain scale. Is intermittent. Neuro: Level of Consciousness is awake, alert, obeys commands, Oriented to person, place, time, situation. Cardiovascular: Patient's skin is warm and dry. Respiratory: Airway is patent Respiratory effort is even, unlabored, Respiratory pattern is regular, symmetrical. GI: Reports diarrhea, nausea. : No signs and/or symptoms were reported regarding the genitourinary system. Derm: Skin is pink, warm \T\ dry. Wound noted abdomen Wound is surgical, small area of redness. SNAKER DRIVING HORSES: 09:55 LMP N/A - Irregular menses, Not jl7 Historical: - Allergies: : No Known Allergies; jl7 - Home Meds: :55 levothyroxine oral [Active]; jl7 - PMHx: :55 GALLSTONES; Hypothyroidism; Kidney stone; jl7 - PSHx: :55 section; Cholecystectomy; Ligation of fallopian tube; Tonsillectomy; jl7 - Immunization history:: Adult Immunizations unknown. - Social history:: Smoking status: Patient/guardian denies using tobacco, Stopped _ months ago 2. Screenin:10 [facility] ED Fall Risk Assessment (Adult) Score/Fall Risk Level 0 - 2 = Low Risk nj1 Oriented to surroundings, Maintained a safe environment, Hourly rounding (assess needs \T\ fall precautionary measures) done. Abuse screen: Denies threats or abuse. Denies injuries from another. Nutritional screening: No deficits noted. Tuberculosis screening: No symptoms or risk factors identified. Assessment: 10:10 Reassessment: See triage assessment. nj1 10:40 Reassessment: Patient appears in no apparent distress at this time. No changes from nj1 previously documented assessment. Patient and/or family updated on plan of care and expected duration. Pain level reassessed. Patient is alert, oriented x 3, equal unlabored respirations, skin warm/dry/pink. 10:40 Pain: Complains of pain in abdomen Pain currently is 6 out of 10 on a pain scale. nj1 Vital Signs: 09:53 BP 132 / 89; Pulse 79; Resp 17; Temp 98.4; Pulse Ox 100% ; Weight 122.47 kg; Height 5 jl7 ft. 4 in. ; Pain 6/10; 09:53 Body Mass Index 46.34 (122.47 kg, 162.56 cm) jl7 09:53 Pain Scale: Adult 7 ED Course: 09:43 Patient arrived in ED. mg5 09:53 Connor Guardado MD is Attending Physician. rt 09:55 Triage completed. jl7 09:55 Arm band placed on right wrist. jl7 10:07 Nanette Segura, JEAN is Primary Nurse. nj1 10:10 Patient has correct armband on for positive identification. Bed in low position. Call [facility] light in reach. 10:10 Provided Education on: call light, fall precautions. nj1 11:32 Brennan Dennis MD is Referral Physician. rt 12:07 No provider procedures requiring assistance completed. Patient did not have IV access ap3 during this emergency room visit. Administered Medications: 10:40 Drug: Ketorolac IM 15 mg IM once Route: IM; Site: right deltoid; nj1 12:07 Follow up: Response: No adverse reaction; Pain is decreased ap3 Medication: 12:07 VIS not applicable for this client. ap3 Outcome: 11:32 Discharge ordered by . rt 12:07 Discharged to home ambulatory, ap3 12:07 Condition: good 12:07 Discharge instructions given to patient, Instructed on discharge instructions, follow up and referral plans. medication usage, Demonstrated understanding of instructions, follow-up care, medications, Prescriptions given X 2, 12:07 Patient left the ED. ap3 Signatures: Elaine Hickey RN RN jl7 Andree Ferrer RN RN ap3 Connor Guardado MD MD rt Nanette Segura RN RN nj1 Laura Clayton mg5
--- NOTE | 2023-10-27 11:33 | EDPHYS ---
Physician Documentation [facility] Name: Qasim Resendez Age: 33 yrs Sex: Female : 1990 Arrival Date: 10/27/2023 Time: 09:39 Bed 9 Private MD: ED Physician Connor Guardado HPI: 10/27 13:23 This 33 yrs old Female presents to ER via Ambulatory with complaints of Nausea, rt Diarrhea. 13:23 Patient presents to the ED with concerns for surgical site infection. In the past few rt months, she has had a cholecystectomy, umbilical hernia repair. About 12 days ago, she was seen in the ED, diagnosed with abdominal wall cellulitis, prescribed Keflex, Bactrim. Got better initially, symptoms have worsened, reports mild redness around the area as well as some drainage from the umbilicus. Ports 1 episode of diarrhea last night. Denies other acute complaints, symptoms are mild in severity, no other aggravating or alleviating factors.. 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 - Social history:: Smoking status: Patient/guardian denies using tobacco, Stopped _ months ago 2. ROS: 13:23 Constitutional: Negative for fever, chills, and weight loss, Cardiovascular: Negative rt for chest pain, palpitations, and edema, Respiratory: Negative for shortness of breath, cough, wheezing, and pleuritic chest pain, 13:23 Neuro: Negative for headache, weakness, numbness, tingling, and seizure, Psych: Negative for depression, anxiety, suicide ideation, homicidal ideation, and hallucinations, 13:23 Abdomen/GI: Positive for diarrhea, Negative for abdominal pain, 13:23 Skin: Positive for cellulitis, Discharge, Exam: 13:23 Constitutional: This is a well developed, well nourished patient who is awake, alert, rt and in no acute distress. Head/Face: Normocephalic, atraumatic. Chest/axilla: Normal chest wall appearance and motion. Nontender with no deformity. No lesions are appreciated. Cardiovascular: Regular rate and rhythm with a normal S1 and S2. No gallops, murmurs, or rubs. Normal PMI, no JVD. No pulse deficits. Respiratory: Lungs have equal breath sounds bilaterally, clear to auscultation and percussion. No rales, rhonchi or wheezes noted. No increased work of breathing, no retractions or nasal flaring. MS/ Extremity: Pulses equal, no cyanosis. Neurovascular intact. Full, normal range of motion. Neuro: Awake and alert, GCS 15, oriented to person, place, time, and situation. Cranial nerves II-XII grossly intact. Motor strength 5/5 in all extremities. Sensory grossly intact. Cerebellar exam normal. Normal gait. Psych: Awake, alert, with orientation to person, place and time. Behavior, mood, and affect are within normal limits. 13:23 Abdomen/GI: At the incision just superior to the umbilicus, there is a small area of erythema, possible stitch abscess. There is a scant amount of nonpurulent drainage from the umbilicus, no surrounding erythema. No abdominal tenderness, distention, Vital Signs: 09:53 BP 132 / 89; Pulse 79; Resp 17; Temp 98.4; Pulse Ox 100% ; Weight 122.47 kg; Height 5 jl7 ft. 4 in. ; Pain 6/10; 09:53 Body Mass Index 46.34 (122.47 kg, 162.56 cm) jl7 09:53 Pain Scale: Adult jl7 MDM: 10:07 Patient medically screened. rt 13:23 Differential diagnosis: Cellulitis. Data reviewed: vital signs, nurses notes, old rt medical records, Reviewed recent ED visit lab test result(s). Management of patient was discussed with the following: Hot Stick Worker: Discussed with patient surgeon, states the patient is appropriate for antibiotics, outpatient follow-up, will follow-up in the office.. Test considered but Not performed: CT: Recent CT scan, benign abdominal examination, do not believe that CT scan of the abdomen pelvis is indicated.. Care significantly affected by the following chronic conditions:. Counseling: I had a detailed discussion with the patient and/or guardian regarding the historical points, exam findings, and any diagnostic results supporting the discharge/admit diagnosis, lab results, the need for outpatient follow up, to return to the emergency department if symptoms worsen or persist or if there are any questions or concerns that arise at home. 10/27 10:08 Order name: CBC with Diff; Complete Time: 11:04 rt 10/27 10:08 Order name: CMP; Complete Time: 11:04 rt Administered Medications: 10:40 Drug: Ketorolac IM 15 mg IM once Route: IM; Site: right deltoid; nj1 12:07 Follow up: Response: No adverse reaction; Pain is decreased ap3 Disposition Summary: 10/27/23 11:32 Discharge Ordered Notes: Location: Home rt Problem: new rt Symptoms: are unchanged rt Condition: Stable rt Diagnosis - Abdominal wall cellulitis rt Followup: rt - With: Brennan Dennis MD - When: 5 - 6 days - Reason: Discharge Instructions: - Discharge Summary Sheet rt - Cellulitis, Adult rt Forms: - Medication Reconciliation Form rt - Thank You Letter rt - Antibiotic Education rt - Prescription Opioid Use rt - Patient Portal Instructions rt - Leadership Thank You Letter rt Prescriptions: - Hibiclens 4 % Topical liquid - apply 1 application TOPICAL route daily Please dispense QS for 5 days; 5 rt application; Refills: 0, Product Selection Permitted - Augmentin 875-125 mg Oral Tablet - take 1 tablet ORAL route every 12 hours for 10 days; 20 tablet; Refills: 0, rt Product Selection Permitted Signatures: Dispatcher [employer] Elaine Coelho RN RN jl7 Connor Guardado MD MD rt Nanette Segura RN RN nj1 Andree Ferrer RN ap3
[2023-10-27 18:16] VITALS: BP 132/89; TEMP 98.4; O2SAT 100
== END ==
LOC: ER 09:39
DX: L03.311 Cellulitis of abdominal wall (principal)
CPT/HCPCS: 36415; 80053; 85025

== ENCOUNTER 2024-01-19 09:17 | Emergency (ER) | payer SELFPAY ==
[2024-01-19 09:59] LABS: Absolute Basophils 0.1 K/uL (0-0.5); Absolute Eosinophils 0.5 K/uL (0-0.5); Absolute Lymphocytes (CBC) 2.5 K/uL (0.7-4.9); Absolute Monocytes 0.7 K/uL (0.1-1.3); Absolute Neutrophil 5.7 K/uL (1.8-8.0); Basophils % 0.6 % (0-1.3); Eosinophils % 4.8 % (0-4.4); Hematocrit 40.2 % (36.0-45.0); Hemoglobin 13.3 g/dL (12.0-15.0); Lymphocytes % 26.9 % (15.3-44.8); MCH 29.8 pg (27.0-35.0); MCV 90.4 fL (80-100); MPV 7.9 fL (7.6-11.3); Monocytes % 6.9 % (3.3-12.3); Neutrophils % 60.8 % (41.7-73.7); Platelets 363 thou/uL (152-406); RBC Red Blood Cell Count 4.44 M/uL (3.86-4.86); Red Cell Distribution Width 14.7 % (12.1-15.2)
--- NOTE | 2024-01-19 12:01 | RAD REPORT ---
EXAM DESCRIPTION: CT - Abdomen Pelvis W Contrast - 01/19/2024 10:50 am CLINICAL HISTORY: Drainage from surgical incision;Abd pain COMPARISON: Abdomen Pelvis W Contrast dated 10/15/2023; Abdomen Pelvis W Contrast dated 08/04/2023 ; Abdomen Pelvis W Contrast dated 07/17/2023; Abdomen Pelvis W Contrast dated 06/15/2023 TECHNIQUE: Thin cut axial CT imaging of the abdomen and pelvis was performed following intravenous a dministration of 100 mL Isovue 300. Multiplanar reformats were generated and reviewed. All CT scans are performed using dose optimization technique as appropriate and may include automated exposure control or mA/KV adjustment according to patient size. FINDINGS: No suspicious findings in the lung bases. The liver, spleen, adrenal glands, and pancreas show no suspicious findings. Gallbladder was surgical ly removed. Symmetric renal function is seen with no hydronephrosis or suspicious renal mass. No dilated bowel loops or bowel wall thickening. No free air, free fluid or inflammatory stranding. S urgical tract extending along the umbilicus with some soft tissue thickening, to the level of the tra nsversalis fascia. No loculated fluid collection component. Small locules of gas in the subcutaneous tissue and fat stranding along the tract have improved since the prior exam. No hernia, mass or bulky lymphadenopathy. The urinary bladder is without significant finding. No suspicious bony findings. Grade 1 spondylolisthesis at L5-S1 again seen. IMPRESSION: No acute intra-abdominal process. Improving postsurgical changes at the umbilicus as above. No appreciable fluid collections or recurre nt hernia.
--- NOTE | 2024-01-19 12:11 | ER ---
Nurse's Notes [facility] Name: Qasim Resendez Age: 33 yrs Sex: Female : 1990 Arrival Date: 01/19/2024 Time: 09:17 Bed 20 Private MD: Diagnosis: Cellulitis of abdominal wall Presentation: 01/18 09:30 Chief complaint: Patient states: she had abdominal surgery in July and August and ap3 has been having issued with recurrent drainage. patient reports calling her surgeon and was unable to get in to see them for assessment of drainage. patient reports intermittent pain and discomfort in surgical area. Coronavirus screen: At this time, the client does not indicate any symptoms associated with coronavirus-19. Ebola Screen: No symptoms or risks identified at this time. Initial Sepsis Screen: Does the patient meet any 2 criteria? No. Patient's initial sepsis screen is negative. Does the patient have a suspected source of infection? No. Patient's initial sepsis screen is negative. Risk Assessment: Do you want to hurt yourself or someone else? Patient reports no desire to harm self or others. Onset of symptoms is unknown. 09:30 Method Of Arrival: Ambulatory ap3 09:30 Acuity: ELÍAS 3 ap3 Triage Assessment: 09:33 General: Appears in no apparent distress. Behavior is calm, cooperative, appropriate ap3 for age. Pain: Complains of pain in abdomen Is intermittent. Neuro: Level of Consciousness is awake, alert, obeys commands, Oriented to person, place, time, situation, Appropriate for age. Cardiovascular: Patient's skin is warm and dry. Respiratory: Airway is patent Respiratory effort is even, unlabored, Respiratory pattern is regular, symmetrical. 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 - Infectious Disease History:: Denies. - Social history:: Smoking status: Patient denies any tobacco usage or history of. Screenin:34 [facility] ED Fall Risk Assessment (Adult) History of falling in the last 3 months, ap3 including since admission No falls in past 3 months (0 pts) Confusion or Disorientation No (0 pts) Intoxicated or Sedated No (0 pts) Impaired Gait No (0 pts) Mobility Assist Device Used No (0 pt) Altered Elimination No (0 pt) Score/Fall Risk Level 0 - 2 = Low Risk Oriented to surroundings, Maintained a safe environment, Educated pt \T\ family on fall prevention, incl call for assistance when getting out of bed, Assessed \T\ reinforced patient's understanding of fall precautions, Provided non-skid footwear, Hourly rounding (assess needs \T\ fall precautionary measures) done, Used ambulatory aids as needed (educated on \T\ assisted with), Used gait belt as appropriate. Abuse screen: Denies threats or abuse. Nutritional screening: No deficits noted. Tuberculosis screening: No symptoms or risk factors identified. Assessment: 10:05 General: Appears in no apparent distress. Behavior is calm, cooperative. Pain: mb9 Complains of pain in abdomen. Neuro: Byrne Agitation-Sedation Scale (RASS): 0 - Alert and Calm Level of Consciousness is awake, alert, obeys commands, Oriented to person, place, time, situation, Appropriate for age. Cardiovascular: Patient's skin is warm and dry. Respiratory: Airway is patent Respiratory effort is even, unlabored, Respiratory pattern is regular, symmetrical. GI: Abdomen is round non-distended, Bowel sounds present X 4 quads. Abd is soft and non tender X 4 quads. : No signs and/or symptoms were reported regarding the genitourinary system. EENT: No signs and/or symptoms were reported regarding the EENT system. Derm: Skin is pink, warm \T\ dry. Musculoskeletal: Range of motion: intact in all extremities. 11:05 Reassessment: Patient appears in no apparent distress at this time. No changes from mb9 previously documented assessment. Patient and/or family updated on plan of care and expected duration. Pain level reassessed. Patient is alert, oriented x 3, equal unlabored respirations, skin warm/dry/pink. 12:15 Reassessment: Patient appears in no apparent distress at this time. No changes from mb9 previously documented assessment. Patient and/or family updated on plan of care and expected duration. Pain level reassessed. Patient is alert, oriented x 3, equal unlabored respirations, skin warm/dry/pink. Vital Signs: 09:30 BP 132 / 94; Pulse 77; Resp 18; Temp 97.1; Pulse Ox 100% ; Weight 111.13 kg; Height 5 ap3 ft. 4 in. ; Pain 6/10; 11:05 BP 132 / 79; Pulse 78; Resp 18; Pulse Ox 98% on R/A; mb9 12:15 BP 119 / 63; Pulse 66; Resp 16; Pulse Ox 99% on R/A; mb9 09:30 Body Mass Index 42.05 (111.13 kg, 162.56 cm) ap3 09:30 Pain Scale: Adult ap3 ED Course: 09:24 Patient arrived in ED. mg5 09:26 Lemuel Carmichael DO is Attending Physician. ms3 09:32 Triage completed. ap3 09:34 Arm band placed on right wrist. ap3 09:41 Andree Ferrer RN is Primary Nurse. ap3 09:51 Primary Nurse role handed off by Andree Ferrer RN mb9 09:51 Selena Ramírez, JEAN is Primary Nurse. mb9 09:51 Placed in gown. Bed in low position. Call light in reach. Side rails up X 1. Provided mb9 Education on: press call light if needing anything. Client placed on continuous cardiac and pulse oximetry monitoring. NIBP monitoring applied. 09:55 BMP Sent. bc6 09:55 CBC with Diff Sent. bc6 09:55 Initial lab(s) drawn, by nh, sent to lab. Inserted saline lock: 20 gauge in right bc6 antecubital area, using aseptic technique. Blood collected. 10:01 No provider procedures requiring assistance completed. mb9 10:[address] via wheelchair. mb9 10:52 CT Abd/Pelvis - IV Contrast Only In Process Unspecified. EDMS 12:12 Brennan Dennis MD is Referral Physician. ms3 Administered Medications: No medications were administered Medication: 09:51 VIS not applicable for this client. mb9 Outcome: 12:11 Discharge ordered by . ms3 12:24 Patient left the ED. mb9 Signatures: Dispatcher [employer] EDMS Andree Ferrer RN RN ap3 Lemuel Carmichael DO DO ms3 Selena Ramírez, RN RN mb9 Nai Weems bc6 Laura Clayton mg5
--- NOTE | 2024-01-19 12:11 | EDPHYS ---
Physician Documentation [facility] Name: Qasim Resendez Age: 33 yrs Sex: Female : 1990 Arrival Date: 01/19/2024 Time: 09:17 Bed 20 Private MD: ED Physician Lemuel Carmichael HPI: 01/18 10:08 This 33 yrs old Female presents to ER via Ambulatory with complaints of Wound Infection.ms3 10:08 33-year-old female with past medical history of hypothyroidism, kidney stones presents ms3 to the emergency department for blood/pus coming from her incision site. Patient states she had a cholecystectomy performed in July and an umbilical hernia repaired in August. Patient states the discomfort at the site is a 5/10. Patient denies any alleviating or inciting factors. 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 - Infectious Disease History:: Denies. - Social history:: Smoking status: Patient denies any tobacco usage or history of. ROS: 10:11 Constitutional: Negative for fever, and chills. Cardiovascular: Negative for chest ms3 pain, and palpitations. Respiratory: Negative for shortness of breath, cough, wheezing, and pleuritic chest pain, Abdomen/GI: Negative for abdominal pain, nausea, vomiting, diarrhea, and constipation, 10:11 Skin: Positive for Surgical incision with drainage , Exam: 10:11 Constitutional: This is a well developed, well nourished patient who is awake, alert, ms3 and in no acute distress. Head/Face: Normocephalic, atraumatic. Cardiovascular: Regular rate and rhythm with a normal S1 and S2. No gallops, murmurs, or rubs. Normal PMI, no JVD. No pulse deficits. Respiratory: Lungs have equal breath sounds bilaterally, clear to auscultation and percussion. No rales, rhonchi or wheezes noted. No increased work of breathing, no retractions or nasal flaring. Abdomen/GI: Soft, non-tender, with normal bowel sounds. No distension or tympany. No guarding or rebound. No evidence of tenderness throughout. 10:11 Skin: Right abdominal incision scar with overlying erythema, tenderness to palpation, no drainage, mild induration.. Vital Signs: 09:30 BP 132 / 94; Pulse 77; Resp 18; Temp 97.1; Pulse Ox 100% ; Weight 111.13 kg; Height 5 ap3 ft. 4 in. ; Pain 6/10; 11:05 BP 132 / 79; Pulse 78; Resp 18; Pulse Ox 98% on R/A; mb9 12:15 BP 119 / 63; Pulse 66; Resp 16; Pulse Ox 99% on R/A; mb9 09:30 Body Mass Index 42.05 (111.13 kg, 162.56 cm) ap3 09:30 Pain Scale: Adult ap3 MDM: 09:42 Patient medically screened. ms3 09:42 ED course: Discussed case with Dr Dennis and he recommends CT of the abdomen and ms3 pelvis.. 10:11 Differential diagnosis: Suture reaction versus umbilical mesh infection versus ms3 cellulitis/cutaneous abscess. 12:12 Data reviewed: vital signs, nurses notes, lab test result(s), radiologic studies, and ms3 as a result, I will discharge patient. Management of patient was discussed with the following: Grizzly Worker: Dr Dennis. 12:13 Counseling: I had a detailed discussion with the patient and/or guardian regarding the ms3 historical points, exam findings, and any diagnostic results supporting the discharge/admit diagnosis, lab results, radiology results, the need for outpatient follow up, to return to the emergency department if symptoms worsen or persist or if there are any questions or concerns that arise at home. ED course: Discussed case with Dr. Dennis and he would like patient to follow-up with him in clinic. He agrees with outpatient oral antibioticsdoxycycline. All questions were answered. Return precautions discussed include worsening symptoms, or any other concerns.. 01/18 09:42 Order name: CBC with Diff; Complete Time: 10:22 ms3 01/18 09:42 Order name: BMP; Complete Time: 10:22 ms3 01/18 09:42 Order name: CT Abd/Pelvis - IV Contrast Only ms3 Administered Medications: No medications were administered Disposition Summary: 01/19/24 12:11 Discharge Ordered Notes: Location: Home ms3 Condition: Stable ms3 Diagnosis - Cellulitis of abdominal wall ms3 Followup: ms3 - With: Brennan Dennis MD - When: 2 - 3 days - Reason: Recheck today's complaints Discharge Instructions: - Discharge Summary Sheet ms3 - Cellulitis, Adult ms3 Forms: - Work release form hb - Medication Reconciliation Form ms3 - Antibiotic Education ms3 - Prescription Opioid Use ms3 - Patient Portal Instructions ms3 - Leadership Thank You Letter ms3 Prescriptions: - Doxycycline Hyclate 100 mg Oral Tablet - take 1 tablet ORAL route every 12 hours; 20 tablet; Refills: 0, Product ms3 Selection Permitted Signatures: Dispatcher [employer] Andree Phoenix RN RN ap3 Lemuel Carmichael DO DO ms3 Corrections: (The following items were deleted from the chart) 10:10 10:08 33-year-old female with past medical history of hypothyroidism, kidney stones ms3 presents to the emergency department for blood/pus coming from her incision site.. ms3
[2024-01-19 12:54] VITALS: BP 119/63; TEMP 97.1; O2SAT 99
== END 2024-01-19 12:24 | disposition home or self-care (01) ==
LOC: ER 09:17
DX: L03.311 Cellulitis of abdominal wall (principal)
CPT/HCPCS: 36415; 74177; 80048; 85025; Q9967

== ENCOUNTER 2024-05-02 12:27 | Emergency (ER) | payer SELFPAY ==
--- NOTE | 2024-05-02 13:19 | RAD REPORT ---
EXAM DESCRIPTION: Michael Santoyo And Dahlia (2 Views)05/02/2024 1:09 pm CLINICAL HISTORY: Cough COMPARISON: None FINDINGS: The lungs appear clear of acute infiltrate. The heart is normal size IMPRESSION: No acute abnormalities displayed
[2024-05-02 13:26] LABS: SARS-CoV-2 Antigen CONTROL BLUE LINE VIS/BG OK; SARS-CoV-2 Antigen Rapid Res Negative (Negative)
--- NOTE | 2024-05-02 14:24 | EDPHYS ---
Physician Documentation [facility] Name: Qasim Resendez Age: 33 yrs Sex: Female : 1990 Arrival Date: 05/02/2024 Time: 12:27 Bed 10 Private MD: ED Physician Jocy Wilkerson HPI: 05/02 17:07 This 33 yrs old Female presents to ER via Ambulatory with complaints of Cough, Chest kb Congestion. 17:07 Pt is a 33 year old female who presents for dry cough, congestion, fatigue, and chest kb pain that started 3 days ago. Denies fever, chills, n/v/d. . 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 - Infectious Disease History:: Denies. - Social history:: Smoking status: Patient denies any tobacco usage or history of. ROS: 14:50 Constitutional: As per HPI kb Exam: 14:50 Constitutional: This is a well developed, well nourished patient who is awake, alert, kb and in no acute distress. Head/Face: Normocephalic, atraumatic. ENT: Moist Mucous membranes Cardiovascular: Regular rate Respiratory: Respirations even and unlabored. No increased work of breathing. Talking in full sentences Abdomen/GI: Soft, non-tender. No distention Skin: Warm, dry with normal turgor. Normal color. MS/ Extremity: Pulses equal, no cyanosis. Neurovascular intact. Full, normal range of motion. Neuro: Awake and alert, GCS 15, oriented to person, place, time, and situation. Moves all extremities. Normal gait. 14:50 ECG was reviewed by the Attending Physician. Vital Signs: 12:46 BP 139 / 84; Pulse 66; Resp 17; Temp 97.1; Pulse Ox 97% on R/A; Weight 117.93 kg; hb Height 5 ft. 4 in. ; Pain 7/10; 15:57 BP 131 / 84; Pulse 52; Resp 17; Pulse Ox 98% on R/A; ll1 12:46 Body Mass Index 44.63 (117.93 kg, 162.56 cm) hb 12:46 Pain Scale: Adult hb MDM: 12:30 Patient medically screened. kb 17:02 Differential Diagnosis: Bronchitis Influenza Upper Respiratory Infection Other DE, kb chest pain, abnormal ekg, uri, covid, flu, pneumonia. Data reviewed: vital signs, nurses notes. Counseling: I had a detailed discussion with the patient and/or guardian regarding the historical points, exam findings, and any diagnostic results supporting the discharge/admit diagnosis, lab results, radiology results, the need for outpatient follow up, a family practitioner, to return to the emergency department if symptoms worsen or persist or if there are any questions or concerns that arise at home. 05/02 12:47 Order name: Flu; Complete Time: 14:08 kb 05/02 12:47 Order name: SARS-COV-2 Antigen Rapid; Complete Time: 13:27 kb 05/02 14:27 Order name: Basic Metabolic Panel; Complete Time: 15:27 kb 05/02 14:27 Order name: CBC with Diff; Complete Time: 15:27 kb 05/02 14:27 Order name: Troponin HS; Complete Time: 15:27 kb 05/02 12:47 Order name: Chest Pa And Lat (2 Views) XRAY; Complete Time: 13:20 kb 05/02 14:27 Order name: EKG; Complete Time: 14:28 kb 05/02 14:27 Order name: EKG - Nurse/Tech; Complete Time: 14:49 kb 05/02 14:27 Order name: IV Saline Lock; Complete Time: 14:49 kb EC:50 Rate is 48 beats/min. Rhythm is regular. QRS [place] is Normal. SC interval is normal at kb 144 msec. QRS interval is normal at 92 msec. QT interval is normal at 385 msec. Administered Medications: 14:49 Drug: Ketorolac IVP 15 mg IVP once Route: IVP; Site: right antecubital; ll1 15:56 Follow up: Response: No adverse reaction; Pain is decreased ll1 Disposition Summary: 05/02/24 15:31 Discharge Ordered Notes: Location: Home(05/02/24 15:31) kb Condition: Stable(05/02/24 15:31) kb Diagnosis - Acute upper respiratory infection, unspecified(05/02/24 15:31) kb - Chest pain, unspecified kb Followup: kb - With: Emergency Department - When: As needed - Reason: Worsening of condition Followup: kb - With: Private Physician - When: 2 - 3 days - Reason: Recheck today's complaints, Continuance of care, Re-evaluation by your physician Discharge Instructions: - Discharge Summary Sheet kb - Nonspecific Chest Pain, Adult, [id number] kb - Upper Respiratory Infection, Adult, [id number] kb Forms: - Medication Reconciliation Form kb - Antibiotic Education kb - Prescription Opioid Use kb - Patient Portal Instructions kb - Leadership Thank You Letter kb Prescriptions: - Diclofenac Sodium 75 mg Oral tablet, delayed release (enteric coated) - take 1 tablet ORAL route 2 times per day As needed; 30 tablet; Refills: 0, kb Product Selection Permitted Signatures: Dispatcher [employer] EDMS Amanda Flores, PRATIKC MALLY-Rosenda Sykes RN RN Rishi Connors RN RN ll1 Corrections: (The following items were deleted from the chart) 14: 14:23 Home kb kb 14:27 14:23 Stable kb kb 14:27 14:23 Acute upper respiratory infection, unspecified kb kb
--- NOTE | 2024-05-02 14:24 | ER ---
Nurse's Notes [facility] Name: Qasim Resendez Age: 33 yrs Sex: Female : 1990 Arrival Date: 05/02/2024 Time: 12:27 Bed 10 Private MD: Diagnosis: Acute upper respiratory infection, unspecified;Chest pain, unspecified Presentation: 05/02 12:46 Chief complaint: Patient states: Dry cough, congestion, fatigue since Thursday getting hb worse. No fever. Coronavirus screen: Client denies travel out of the [place] in the last 14 days. Ebola Screen: Patient denies travel to an Ebola-affected area in the 21 days before illness onset. Initial Sepsis Screen: Does the patient meet any 2 criteria? No. Patient's initial sepsis screen is negative. Does the patient have a suspected source of infection? No. Patient's initial sepsis screen is negative. Risk Assessment: Do you want to hurt yourself or someone else? Patient reports no desire to harm self or others. Onset of symptoms was April 29, 2024. 12:46 Method Of Arrival: Ambulatory hb 12:46 Acuity: ELÍAS 3 hb Triage Assessment: 12:46 General: Appears uncomfortable, Behavior is calm, cooperative, appropriate for age, ll1 Reports fatigue for. Cardiovascular: Reports chest pain, fatigue. Respiratory: Reports cough that is. 15:56 Pain: Denies pain. 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 - Infectious Disease History:: Denies. - Social history:: Smoking status: Patient denies any tobacco usage or history of. Screenin:51 [facility] ED Fall Risk Assessment (Adult) History of falling in the last 3 months, ll1 including since admission No falls in past 3 months (0 pts) Confusion or Disorientation No (0 pts) Intoxicated or Sedated No (0 pts) Impaired Gait No (0 pts) Mobility Assist Device Used No (0 pt) Altered Elimination No (0 pt) Score/Fall Risk Level 0 - 2 = Low Risk Maintained a safe environment, Hourly rounding (assess needs \T\ fall precautionary measures) done. Abuse screen: Denies threats or abuse. Nutritional screening: No deficits noted. Tuberculosis screening: No symptoms or risk factors identified. Assessment: 12:55 Reassessment: No changes from previously documented assessment. Patient and/or family ll1 updated on plan of care and expected duration. Pain level reassessed. 14:50 Reassessment: No changes from previously documented assessment. Patient and/or family ll1 updated on plan of care and expected duration. Pain level reassessed. Patient is alert, oriented x 3, equal unlabored respirations, skin warm/dry/pink. 15:31 Reassessment: No changes from previously documented assessment. Patient and/or family ll1 updated on plan of care and expected duration. Pain level reassessed. Patient is alert, oriented x 3, equal unlabored respirations, skin warm/dry/pink. Vital Signs: 12:46 BP 139 / 84; Pulse 66; Resp 17; Temp 97.1; Pulse Ox 97% on R/A; Weight 117.93 kg; hb Height 5 ft. 4 in. ; Pain 7/10; 15:57 BP 131 / 84; Pulse 52; Resp 17; Pulse Ox 98% on R/A; ll1 12:46 Body Mass Index 44.63 (117.93 kg, 162.56 cm) hb 12:46 Pain Scale: Adult hb ED Course: 12:30 Patient arrived in ED. mr 12:30 Amanda Flores F[facility]C [facility] kb 12:30 Jocy Wilkerson MD is Attending Physician. kb 12:47 Triage completed. hb 12:49 SARS-COV-2 Antigen Rapid Sent. hb 12:49 Flu Sent. hb 12:49 Arm band placed on. hb 13:11 Chest Pa And Lat (2 Views) XRAY In Process Unspecified. EDMS 14:49 Initial lab(s) drawn, by me, sent to lab. Inserted saline lock: 20 gauge in right zm antecubital area, using aseptic technique. Blood collected. Flushed with 10 mL NS. 14:49 CBC with Diff Sent. zm 14:49 Basic Metabolic Panel Sent. zm 14:49 Troponin HS Sent. zm 14:51 Patient has correct armband on for positive identification. Bed in low position. ll1 Provided Education on: ER procedures and process. Client placed on continuous cardiac and pulse oximetry monitoring. NIBP monitoring applied. site monitor on. 14:52 No provider procedures requiring assistance completed. ll1 15:56 IV discontinued, intact, bleeding controlled, No redness/swelling at site. Pressure ll1 dressing applied. Administered Medications: 14:49 Drug: Ketorolac IVP 15 mg IVP once Route: IVP; Site: right antecubital; ll1 15:56 Follow up: Response: No adverse reaction; Pain is decreased ll1 Medication: 14:51 VIS not applicable for this client. ll1 Outcome: 14:23 Discharge ordered by . kb 15:31 Discharge ordered by . kb 15:50 Patient left the ED. gb1 15:56 Discharged to home ambulatory, ll1 15:56 Condition: stable 15:56 Discharge instructions given to patient, Instructed on discharge instructions, follow up and referral plans. medication usage, Demonstrated understanding of instructions, follow-up care, medications, Prescriptions given X 1, Signatures: Dispatcher [employer] EDMS Amanda Flores, WATER [employer] SE[employer] SYSTEMS SUPERVISOR-C WATER [employer] SE[employer]ER SYSTEMS SUPERVISOR-Ckb Selena Miller, Reg Reg mr Rosenda Win, Rishi Cm RN, RN RN ll1 Izabela Interiano Gina, MD MD gb1
[2024-05-02] MEDS ORDERED: KETOROLAC 30 MG/ML INJ ONE (14:36)
[2024-05-02 15:14] LABS: Anion Gap 3.8 mEq/L (5.0-15.0); BUN Blood Urea Nitrogen 8 mg/dL (7-18); Bicarbonate 30 mEq/L (21-32); Glomerular Filtration Rate 117 ml/min (=/>90); Glucose Level 93 mg/dL (74-106); Potassium 3.8 mEq/L (3.5-5.1); Sodium Level 138 mEq/L (136-145)
[2024-05-02 15:15] LABS: Absolute Basophils 0.1 K/uL (0-0.5); Absolute Eosinophils 0.3 K/uL (0-0.5); Absolute Lymphocytes (CBC) 2.9 K/uL (0.7-4.9); Absolute Monocytes 0.7 K/uL (0.1-1.3); Absolute Neutrophil 5.3 K/uL (1.8-8.0); Basophils % 0.5 % (0-1.3); Eosinophils % 3.4 % (0-4.4); Hematocrit 40.6 % (36.0-45.0); Hemoglobin 13.5 g/dL (12.0-15.0); Lymphocytes % 31.3 % (15.3-44.8); MCH 30.3 pg (27.0-35.0); MCHC 33.2 g/dL (32.0-36.0); MCV 91.4 fL (80-100); Monocytes % 7.3 % (3.3-12.3); Neutrophils % 57.5 % (41.7-73.7); Nucleated Red Blood Cells % 0.1 % (0-0); Platelets 345 thou/uL (152-406); RBC Red Blood Cell Count 4.44 M/uL (3.86-4.86); Red Cell Distribution Width 14.7 % (12.1-15.2); Troponin High Sensitivity < 3.0 pg/mL (<58.9)
[2024-05-02 19:19] VITALS: BP 139/84; TEMP 97.1; O2SAT 97
--- NOTE | 2024-05-03 17:07 | EKG ---
Test Date: 2024-05-02 Test Time: 14:43:17 Marine Steamfitter: LML MEASUREMENT RESULTS: Intervals: Rate: 48 [place]: 144 QRSD: 92 QT: 432 QTc: 385 [place]: P: 30 [place]: 144 QRS: 92 T: 29 INTERPRETIVE STATEMENTS: Marked sinus bradycardia Abnormal ECG No previous ECG available for comparison Electronically Signed On 05-03-24 17:04:44 CDT by Jai White
== END 2024-05-02 15:50 | disposition home or self-care (01) ==
LOC: ER 12:27
DX: J06.9 Acute upper respiratory infection, unspecified (principal); Z11.52 Encounter for screening for COVID-19
CPT/HCPCS: 36415; 71046; 80048; 84484; 85025; 87804; 87811; 93005; 96374; 99285

== ENCOUNTER 2024-06-01 09:28 | Emergency (ER) | payer OTHER ==
[2024-06-01] MEDS ORDERED: ALBUTEROL 2.5 MG/3 ML NEB SOL ONE (10:19)
[2024-06-01] MEDS ORDERED: IPRATROPIUM BROM 0.5MG/2.5ML ONE (10:19)
--- NOTE | 2024-06-01 10:19 | RAD REPORT ---
EXAM DESCRIPTION: RAD - Chest Pa And Lat (2 Views) - 06/01/2024 10:14 am CLINICAL HISTORY: COUGH Chest pain. COMPARISON: Chest Pa And Lat (2 Views) dated 05/02/2024 FINDINGS: The lungs are clear. The heart is normal in size. No displaced fractures. IMPRESSION: No acute or concerning finding suspected.
[2024-06-01 10:38] LABS: SARS-CoV-2 Antigen CONTROL BLUE LINE VIS/BG OK; SARS-CoV-2 Antigen Rapid Res Negative (Negative)
[2024-06-01] MEDS ORDERED: predniSONE 20 MG TAB ONE (11:00)
--- NOTE | 2024-06-01 11:01 | EDPHYS ---
Physician Documentation [facility] Name: Qasim Resendez Age: 33 yrs Sex: Female : 1990 Arrival Date: 06/01/2024 Time: 09:28 Bed 13 Private MD: ED Physician Lemuel Carmichael HPI: 06/01 09:59 This 33 yrs old Female presents to ER via Ambulatory with complaints of Nasal ms3 Congestion, Chest Congestion. 09:59 33-year-old female with past medical history of pneumonia, hypothyroidism, kidney ms3 stones presents to the emergency department for cough, congestion, sinus pressure, chills that has been ongoing for 4 days. Patient states she has been severe discomfort. She denies any alleviating factors.. MANAGER RELIABILITY: 09:43 LMP N/A - , Not mb9 Historical: - Allergies: 09:31 No Known Allergies; ll1 - PMHx: 09:31 GALLSTONES; Hypothyroidism; Kidney stone; ll1 - PSHx: 09:31 section; Cholecystectomy; hernia repair; Ligation of fallopian tube; ll1 Tonsillectomy; - Immunization history:: Adult Immunizations up to date. - Infectious Disease History:: Denies. - Social history:: Smoking status: Patient denies any tobacco usage or history of. ROS: 09:59 Cardiovascular: Negative for chest pain, and palpitations. Respiratory: Negative for ms3 shortness of breath, cough, wheezing, and pleuritic chest pain, Abdomen/GI: Negative for abdominal pain, nausea, vomiting, diarrhea, and constipation, Skin: Negative for injury, rash, and discoloration, 09:59 Constitutional: Positive for body aches, chills, Exam: 09:59 Constitutional: This is a well developed, well nourished patient who is awake, alert, ms3 and in no acute distress. Neck: Trachea midline, no cervical lymphadenopathy. Supple, full range of motion without nuchal rigidity, or vertebral point tenderness. No Meningismus. Chest/axilla: Normal chest wall appearance and motion. Nontender with no deformity. Cardiovascular: Regular rate and rhythm with a normal S1 and S2. No gallops, murmurs, or rubs. Normal PMI, no JVD. No pulse deficits. 09:59 Respiratory: the patient does not display signs of respiratory distress, Respirations: normal, Breath sounds: no acute changes, Vital Signs: 09:37 BP 139 / 102; Pulse 76; Resp 16; Temp 98.3(O); Pulse Ox 98% on R/A; Weight 117.93 kg; ll1 Height 5 ft. 4 in. ; Pain 7/10; 10:22 BP 135 / 95; Pulse 74; Resp 18; Pulse Ox 100% on R/A; mb9 09:37 Body Mass Index 44.63 (117.93 kg, 162.56 cm) ll1 09:37 Pain Scale: Adult ll1 MDM: 09:59 Patient medically screened. ms3 09:59 Differential Diagnosis: Bronchitis Influenza Upper Respiratory Infection Pneumonia. ms3 11:04 Data reviewed: vital signs, nurses notes, lab test result(s), radiologic studies, and ms3 as a result, I will discharge patient. I considered the following discharge prescriptions or medication management in the emergency department Medications were administered in the Emergency Department. See MAR. Independent interpretation of the following test(s) in the Emergency Department X-Ray: My interpretation is Chest x-ray image reviewed by me does not reveal pneumonia. Counseling: I had a detailed discussion with the patient and/or guardian regarding the historical points, exam findings, and any diagnostic results supporting the discharge/admit diagnosis, lab results, radiology results, the need for outpatient follow up, to return to the emergency department if symptoms worsen or persist or if there are any questions or concerns that arise at home. Special discussion: I discussed with the patient/guardian in detail that at this point there is no indication for admission to the hospital. It is understood, however, that if the symptoms persist or worsen the patient needs to return immediately for re-evaluation. ED course: Discussed labs and imaging with patient. Patient to follow-up with primary care physician in 2 to 3 days. All questions were answered. Return precautions discussed include worsening symptoms, or any other concerns. On reevaluation patient is alert and oriented x 4, no apparent distress, nontoxic-appearing, ambulatory emerged department, speaking full sentences. 06/01 09:31 Order name: Flu; Complete Time: 10:54 ms3 06/01 09:31 Order name: SARS RAPID; Complete Time: 10:54 ms3 06/01 09:37 Order name: Chest Pa And Lat (2 Views) XRAY; Complete Time: 10:34 ms3 Administered Medications: 10:22 Drug: DuoNeb Nebulize (2.5 mg - 0.5 mg) 3 ml Nebulizer once Route: Nebulizer; 9 10:43 Follow up: Response: No adverse reaction mb9 11:03 Drug: predniSONE PO 40 mg PO once Route: PO; mb9 11:10 Follow up: Response: No adverse reaction mb9 Disposition Summary: 06/01/24 11:01 Discharge Ordered Notes: Location: Home ms3 Condition: Stable ms3 Diagnosis - Acute upper respiratory infection, unspecified ms3 Followup: ms3 - With: Chris Farrell DO - When: 2 - 3 days - Reason: Recheck today's complaints Discharge Instructions: - Upper Respiratory Infection, Adult ms3 - Discharge Summary Sheet mb9 Forms: - Medication Reconciliation Form ms3 - Antibiotic Education ms3 - Prescription Opioid Use ms3 - Patient Portal Instructions ms3 - Leadership Thank You Letter ms3 - Work release form mb9 Prescriptions: - albuterol sulfate 90 mcg/actuation Inhalation HFA Aerosol Inhaler - inhale 2 puff INHALATION route every 4 hours as needed for shortness of breath ms3 or wheezing; 1 unit; Refills: 0, Product Selection Permitted - Prednisone 20 mg Oral Tablet - take 2 tablets ORAL route once daily for 5 days; 10 tablet; Refills: 0, Product ms3 Selection Permitted - benzonatate 200 mg Oral capsule - take 1 capsule ORAL route 3 times per day as needed; 20 capsule; Refills: 0, ms3 Product Selection Permitted Signatures: Dispatcher [employer] Rishi Clarke RN RN ll1 Lemuel Carmichael DO DO ms3 Selena Rios RN RN mb9
--- NOTE | 2024-06-01 11:01 | ER ---
Nurse's Notes [facility] Name: Qasim Resendez Age: 33 yrs Sex: Female : 1990 Arrival Date: 06/01/2024 Time: 09:28 Bed 13 Private MD: Diagnosis: Acute upper respiratory infection, unspecified Presentation: 06/01 09:37 Chief complaint: Patient states: Chest congestion, painful cough, SOB, sore throat, ll1 clammy for 4 days. Coronavirus screen: Client denies travel out of the [place] in the last 14 days. congestion, cough unrelated to allergies, fatigue, Client presents with at least one sign or symptom that may indicate coronavirus-19. Standard/surgical mask placed on the client. Ebola Screen: Patient denies travel to an Ebola-affected area in the 21 days before illness onset. Initial Sepsis Screen: Does the patient meet any 2 criteria? No. Patient's initial sepsis screen is negative. Does the patient have a suspected source of infection? No. Patient's initial sepsis screen is negative. Risk Assessment: Do you want to hurt yourself or someone else? Patient reports no desire to harm self or others. Onset of symptoms was May 29, 2024. 09:37 Method Of Arrival: Ambulatory ll1 09:37 Acuity: ELÍAS 3 ll1 LIVESTOCK COUNTER: 09:43 LMP N/A - , Not mb9 Historical: - Allergies: 09:31 No Known Allergies; ll1 - PMHx: 09:31 GALLSTONES; Hypothyroidism; Kidney stone; ll1 - PSHx: 09:31 section; Cholecystectomy; hernia repair; Ligation of fallopian tube; ll1 Tonsillectomy; - Immunization history:: Adult Immunizations up to date. - Infectious Disease History:: Denies. - Social history:: Smoking status: Patient denies any tobacco usage or history of. Screenin:43 [facility] ED Fall Risk Assessment (Adult) History of falling in the last 3 months, mb9 including since admission No falls in past 3 months (0 pts) Confusion or Disorientation No (0 pts) Intoxicated or Sedated No (0 pts) Impaired Gait No (0 pts) Mobility Assist Device Used No (0 pt) Altered Elimination No (0 pt) Score/Fall Risk Level 0 - 2 = Low Risk Oriented to surroundings, Maintained a safe environment, Educated pt \T\ family on fall prevention, incl call for assistance when getting out of bed. Abuse screen: Denies threats or abuse. Nutritional screening: No deficits noted. Tuberculosis screening: No symptoms or risk factors identified. Assessment: 09:42 General: Appears in no apparent distress. Behavior is cooperative. Neuro: [place] mb9 Agitation-Sedation Scale (RASS): 0 - Alert and Calm Level of Consciousness is awake, alert, obeys commands, Oriented to person, place, time, situation, Appropriate for age. Cardiovascular: Heart tones S1 S2 present Patient's skin is warm and dry. Respiratory: Reports cough that is productive, Airway is patent Respiratory effort is even, unlabored, Respiratory pattern is regular, symmetrical, Breath sounds are coarse in right upper lobe and left upper lobe. GI: No signs and/or symptoms were reported involving the gastrointestinal system. : No signs and/or symptoms were reported regarding the genitourinary system. EENT: Reports nasal congestion. Derm: Skin is pink, warm \T\ dry. Musculoskeletal: Range of motion: intact in all extremities. 09:42 Pain: Complains of pain in head. mb9 Vital Signs: 09:37 BP 139 / 102; Pulse 76; Resp 16; Temp 98.3(O); Pulse Ox 98% on R/A; Weight 117.93 kg; ll1 Height 5 ft. 4 in. ; Pain 7/10; 10:22 BP 135 / 95; Pulse 74; Resp 18; Pulse Ox 100% on R/A; mb9 09:37 Body Mass Index 44.63 (117.93 kg, 162.56 cm) ll1 09:37 Pain Scale: Adult ll1 ED Course: 09:31 Patient arrived in ED. im 09:31 Lemuel Carmichael DO is Attending Physician. ms3 09:31 Arm band placed on Patient placed in an exam room, on a stretcher. ll1 09:32 Selena Rios, JEAN is Primary Nurse. mb9 09:39 Triage completed. ll1 09:42 No provider procedures requiring assistance completed. COVID swab sent to lab. Flu mb9 and/or RSV swab sent to lab. 09:44 Bed in low position. Call light in reach. Side rails up X 1. Provided Education on: mb9 press call light if needing anything. Client placed on continuous cardiac and pulse oximetry monitoring. NIBP monitoring applied. Door closed. Noise minimized. Warm blanket given. Pillow given. 10:15 Chest Pa And Lat (2 Views) XRAY In Process Unspecified. EDMS 11:01 Chris Farrell DO is Referral Physician. ms3 11:09 Patient did not have IV access during this emergency room visit. mb9 Administered Medications: 10:22 Drug: DuoNeb Nebulize (2.5 mg - 0.5 mg) 3 ml Nebulizer once Route: Nebulizer; mb9 10:43 Follow up: Response: No adverse reaction mb9 11:03 Drug: predniSONE PO 40 mg PO once Route: PO; mb9 11:10 Follow up: Response: No adverse reaction mb9 Medication: 09:43 VIS not applicable for this client. mb9 Outcome: 11:01 Discharge ordered by . ms3 11:09 Discharged to home ambulatory, mb9 11:09 Condition: stable 11:09 Discharge instructions given to patient, Instructed on discharge instructions, follow up and referral plans. Demonstrated understanding of instructions, follow-up care, medications, Prescriptions given X 3, 11:10 Patient left the ED. mb9 Signatures: Dispatcher [employer] EDMS Rishi Connors RN RN ll1 Lemuel Carmichael DO DO ms3 Selena Rios RN RN mb9 Rivka Haskins Corrections: (The following items were deleted from the chart) 09:44 09:42 Pain: Denies pain. mb9 mb9
[2024-06-01 11:29] VITALS: BP 139/102; TEMP 98.3; O2SAT 98
== END 2024-06-01 11:10 | disposition home or self-care (01) ==
LOC: ER 09:28
DX: J06.9 Acute upper respiratory infection, unspecified (principal); Z11.52 Encounter for screening for COVID-19
CPT/HCPCS: 36415; 87804 ×2; 71046; 99284; 87811; J7512; J7613; J7644

== ENCOUNTER 2024-08-01 10:00 | Emergency (ER) | payer OTHER ==
--- OUTSIDE RECORDS SUMMARY | 2024-08-01 10:03 | XMS REPORT | Continuity of Care Document ---
Author Name Unknown Address [address] [facility] [address] [place] [address] [facility] thconnect Address [address] [facility] 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 Disease Active 02-27 00:00: [address] Family History Family Member Diagnosis Comments Start Date Stop Date Sourc e Natural father Hypertension [facility] Natural father Stroke [place] [facility] Natural mother Cancer [place] [facility] Natural mother Hypertension [facility] Paternal grandmother Diabetes Shad Barrientos Paternal grandmother Hypertension [facility] Paternal grandmother Stroke Shad Barrientos Social History Social Habit Start Date Stop Date Quantity Comments Source History of tobacco use Cigarette Smoker Shad Barrientos ASSERTION Not Shad Barrientos Sexual orientation H olivier Barrientos History of Social function 2023-04-02 00:00:00 2023-04-02 00:00:00 Shad Barrientos Alcoholic beverage intake 2023-03-11 00:00:00 2023-03-11 00:00:00 Current non-drinker of alcohol (finding) Shad Barrientos Alcohol intake 2023-03-11 00:00:00 2023-03-11 00:00:00 Current non-drinker of alcohol (finding) Shad Barrientos Tobacco use and exposure 2022-01-02 00:00:00 2022-01-02 00:00:00 Smokeless tobacco non-user Shad Barrientos Sex assigned at 1990 00:00:00 1990 00:00:00 Shad Barrientos Smoking Status Start Date Stop Date Source Ex-smoker 2022-01-02 00:00:00 2022-01-02 00:00:00 H olivier Barrientos Medications Ordered Medication Name Filled Medication Name Start Date Stop Date Current Medication? Ordering Clinician Indication Dosage Frequency Signature (SIG) Comments Components Source ibuprofen (ADVIL) 800 MG tablet 03-11 00:00: 00 Yes 800mg Q8H Take 1 tablet (800 mg total) by mouth every 8 (eight) hours as needed for mild pain. Shad [address] methylPREDN ISolone (MEDROL DOSEPAK) 4 mg tablet 03-11 00:00: 00 03-17 23:59 :00 No follow package directions Shad [address] ibuprofen (ADVIL) 600 MG tablet 12-31 00:00: 00 Yes 600mg Q8H Take 1 tablet (600 mg total) by mouth every 8 (eight) hours as needed for mild pain. Shad [address] traMADoL (ULTRAM) 50 mg tablet 12-31 00:00: 00 Yes acute pain 50mg Q8H Take 1 tablet (50 mg total) by mouth every 8 (eight) hours as needed for moderate pain .acute pain. Shad [address] amoxicillin -pot clavulanate (Augmentin) 875-125 mg per tablet 12-31 00:00: 00 01-07 23:59 :00 No 1{tbl} Q.5D Take 1 tablet by mouth 2 (two) times a day for [address] ibuprofen (ADVIL) 600 MG tablet 3-06 00:00: 00 Yes 600mg Q6H Take 1 tablet (600 mg total) by mouth every 6 (six) hours as needed for mild pain. Shad malin methocarbam oL (ROBAXIN) 500 MG tablet 12-01 00:00: 00 12-06 23:59 :00 No 500mg Q.5D Take 1 tablet (500 mg total) by mouth 2 (two) times a day for 5 days. Shad mailn predniSONE (DELTASONE) 10 mg tablet 12-01 00:00: 00 12-05 23:59 :00 No 40mg QD Take 4 tablets (40 mg total) by mouth daily for 4 days. Shad malin benzonatate (TESSALON) 100 MG capsule 03-03 00:00: 00 Yes 100mg [id number] 3D Take 1 capsule (100 mg total) by mouth 3 (three) times a day as needed for cough. Shad malin Vital Signs Vital Name Observation Time Observation Value Comments S ource Systolic blood pressure 2023-04-02 11:00:00 114 mm[Hg] Shad Arleth [place] Diastolic blood pressure 2023-04-02 11:00:00 64 mm[Hg] Shad Arleth [place] Heart rate 2023-04-02 11:00:00 57 /min [facility] Respiratory rate 2023-04-02 11:00:00 19 /min Shad Barrientos Oxygen saturation in Arterial blood by Pulse oximetry 2023-04-02 11:00:00 98 /min Shad Arleth trung[place] Body temperature 2023-04-02 08:30:00 36.78 Jerrica Shad Barrientos Body height 2023-04-02 07:42:00 162.6 cm Maricel Barrientos Body weight 2023-04-02 07:42:00 111.131 kg Maricel Barrientos BMI 2023-04-02 07:42:00 42.05 kg/m2 Maricel Barrientos Procedures Procedure Date / Time Performed Performing Clinicia n Source US GALLBLADDER 2023-04-02 09:18:23 Nina Abdullahi URINE CULTURE 2023-04-02 08:11:00 Nina Abdullahi CBC WITH PLATELET AND DIFFERENTIAL 2023-04-02 08:11:00 Ron Abdullahi COMPREHENSIVE METABOLIC PANEL 2023-04-02 08:11:00 Ron Abdullahi ESTIMATED GFR 2023-04-02 08:11:00 Nina Abdullahi URINALYSIS SCREEN AND MICROSCOPY, WITH REFLEX TO CULTURE 2023-04-02 08:10:00 Ron Abdullahi CBC WITH PLATELET AND DIFFERENTIAL 2023-03-11 11:06:00 Eula Fleming COMPREHENSIVE METABOLIC PANEL 2023-03-11 11:06:00 Eula Fleming TROPONIN T 2023-03-11 11:06:00 Eula Fleming NT-PROBNP 2023-03-11 11:06:00 Eula Fleming HCG QUALITATIVE, SERUM SCREEN 2023-03-11 11:06:00 Elua Fleming ESTIMATED GFR 2023-03-11 11:06:00 Eula Fleming XR CHEST 1 VW PORTABLE 2023-03-11 10:42:54 Alba Fleming ECG 12-LEAD 2023-03-11 10:24:30 Eula Fleming URINE CULTURE 2022-12-01 14:20:00 Andi Lopez HCG QUALITATIVE, URINE SCREEN 2022-12-01 14:20:00 Andi Lopez URINALYSIS SCREEN AND MICROSCOPY, WITH REFLEX TO CULTURE 2022-12-01 14:20:00 Andi Lopez Plan of Care Planned Activity Planned Date Details Comments Source Future Scheduled Test 2023-05-29 00:00:00 COVID-19 VACCINE ( season) [code = COVID-19 VACCINE ( season)] Shad Barrientos Future Scheduled Test 2023-05-29 00:00:00 INFLUENZA VACCINE (#1) [code = INFLUENZA VACCINE (#1)] Shad Barrientos Future Scheduled Test 2023-05-29 00:00:00 COVID-19 VACCINE ( season) [code = COVID-19 VACCINE (2 - 2023-24 season)] [facility] Scheduled Test 2023-05-29 00:00:00 INFLUENZA VACCINE (#1) [code = INFLUENZA VACCINE (#1)] [facility] Scheduled Test 2023-05-29 00:00:00 COVID-19 VACCINE ( season) [code = COVID-19 VACCINE ( season)] [facility] Scheduled Test 2023-05-29 00:00:00 INFLUENZA VACCINE (#1) [code = INFLUENZA VACCINE (#1)] [facility] Scheduled Test 2023-05-29 00:00:00 COVID-19 VACCINE ( season) [code = COVID-19 VACCINE ( season)] [facility] Scheduled Test 2023-05-29 00:00:00 INFLUENZA VACCINE (#1) [code = INFLUENZA VACCINE (#1)] [facility] Scheduled Test 2023-05-29 00:00:00 COVID-19 VACCINE ( season) [code = COVID-19 VACCINE ( season)] [facility] Scheduled Test 2023-05-29 00:00:00 INFLUENZA VACCINE (#1) [code = INFLUENZA VACCINE (#1)] [facility] Scheduled Test 2011 00:00:00 Screening for malignant neoplasm of cervix (procedure) [code = 355360057] [facility] Scheduled Test 2011 00:00:00 Screening for malignant neoplasm of cervix (procedure) [code = 772902054] [facility] Scheduled Test 2011 00:00:00 Screening for malignant neoplasm of cervix (procedure) [code = 853044405] [facility] Scheduled Test 2011 00:00:00 Screening for malignant neoplasm of cervix (procedure) [code = 929440551] [facility] Scheduled Test 2011 00:00:00 Screening for malignant neoplasm of cervix (procedure) [code = 695622564] [facility] Scheduled Test 2008 00:00:00 Hepatitis C screening (procedure) [code = 466160934] [facility] Scheduled Test 2008 00:00:00 Hepatitis C screening (procedure) [code = 742734170] Shad Barrientos Future Scheduled Test 2008 00:00:00 Hepatitis C screening (procedure) [code = 617493118] Shad Barrientos Future Scheduled Test 2008 00:00:00 Hepatitis C screening (procedure) [code = 999397275] Shad Barrientos Future Scheduled Test 2008 00:00:00 Hepatitis C screening (procedure) [code = 674772954] [facility] En[facility] Start Date/Time End Date/Time Encounter Type Admission Type Attending [facility] Care Department Encounter ID Source 2023-04-02 07:37:00 2023-04-02 12:18:00 Emergency Ron Abdullahi [facility] [id number] 2023-03-11 10:05:00 2023-03-11 12:06:00 Emergency David Becker [facility] [id number] 2022-12-31 12:48:00 2022-12-31 15:01:00 Emergency Bhargav Redd [facility] [id number] 2022-12-31 00:00:00 2022-12-31 00:00:00 Travel [facility] [id number] 2022-12-01 14:02:00 2022-12-01 16:47:00 Emergency Christine Beltran Evert [facility] [id number] 2022-12-01 00:00:00 2022-12-01 00:00:00 Travel [facility] [id number] [facility] Results Test Description Test Time Test Comments Results Result Co mments Source [id number] 09:05:00* Test Item Value Reference Range Interpretation Comme nts Urine culture (test code = 3144641) SEE COMMENT Bacteriuria scre en negative. Shad Barrientos
[2024-08-01 11:17] LABS: Absolute Basophils 0.1 K/uL (0-0.5); Absolute Eosinophils 0.4 K/uL (0-0.5); Absolute Lymphocytes (CBC) 2.6 K/uL (0.7-4.9); Absolute Monocytes 0.6 K/uL (0.1-1.3); Absolute Neutrophil 4.7 K/uL (1.8-8.0); Basophils % 0.9 % (0-1.3); Eosinophils % 4.6 % (0-4.4); Hematocrit 40.5 % (36.0-45.0); Hemoglobin 13.3 g/dL (12.0-15.0); Lymphocytes % 31.5 % (15.3-44.8); MCH 30.1 pg (27.0-35.0); MCV 91.4 fL (80-100); MPV 7.9 fL (7.6-11.3); Monocytes % 7.4 % (3.3-12.3); Neutrophils % 55.6 % (41.7-73.7); Platelets 337 thou/uL (152-406); RBC Red Blood Cell Count 4.43 M/uL (3.86-4.86); Red Cell Distribution Width 14.5 % (12.1-15.2)
[2024-08-01 11:35] LABS: Albumin 3.4 g/dL (3.4-5.0); Albumin/Globulin Ratio 0.9 (1.1-1.8); Anion Gap 6.2 mEq/L (5.0-15.0); Bilirubin Total 0.2 mg/dL (0.2-1.0); Globulin 3.9 g/dL (2.3-3.5); Potassium 4.2 mEq/L (3.5-5.1); Protein, Total 7.3 g/dL (6.4-8.2)
--- NOTE | 2024-08-01 12:26 | RAD REPORT ---
EXAMINATION: CT Abdomen Pelvis W Contrast CLINICAL INDICATION: Female, 33 years old. abdominal wall abscess TECHNIQUE: CT abdomen and pelvis was performed, after the administration of IV contrast, as per [facility] protocol. Axial, sagittal and coronal reconstructions were obtained. One or more of the following dose reduction techniques were used: Automated exposure control, adjustment of the mA and k V according to patient size, and iterative reconstruction. Unless otherwise specified, incidental findings do not require dedicated imaging follow-up. COMPARISON: 01/19/2024 FINDINGS: LOWER CHEST: 4 mm nodule may be abutting the major fissure anteriorly is stable LIVER: Normal in size and contour. No focal lesion. BILIARY SYSTEM: Status post cholecystectomy. SPLEEN: Normal size. No focal lesion. PANCREAS: No mass, ductal dilation, or tino-pancreatic fluid. ADRENALS: Normal; no mass. KIDNEYS: Normal size and contour. No hydronephrosis. URINARY BLADDER: Decompressed, limiting evaluation. GASTROINTESTINAL TRACT: No evidence of free air, significant intra-abdominal free fluid, bowel obstru ction or abscess. APPENDIX: Normal appendix. LYMPH NODES: No lymphadenopathy. MUSCULOSKELETAL: Grade 1 spondylolisthesis at L5-S1 again seen. ADDITIONAL FINDINGS: Linear soft tissue thickening along the umbilicus, slightly asymmetrically exten ding superiorly and the right of midline. Focal skin thickening in the right para midline region.. The findings are stable. Mild underlying fat stranding may be slightly progressive. No appreciable fl uid collections IMPRESSION: Stable linear soft tissue thickening along the umbilicus extending slightly superiorly and right of m idline, with no appreciable fluid collections. Please correlate clinically for evidence of cellulitis. No acute or concerning abnormalities seen within the abdomen or pelvis.
--- NOTE | 2024-08-01 12:28 | EDPHYS ---
Physician Documentation [facility] Name: Qasim Resendez Age: 33 yrs Sex: Female : 1990 Arrival Date: 08/01/2024 Time: 10:00 Bed Hall1 Private MD: AJ Physician eKvin Engel HPI: 08/01 10:48 This 33 yrs old Female presents to ER via Ambulatory with complaints of Abdominal Pain, sb4 Cyst. 10:56 the patient presents with a swollen area of the umbilical area. sb4 10:57 patient states that she had umbilical hernia repair with mesh about 1 year ago. States sb4 that since, she has had a recurrent abscess in the incision site area. States that she has seen general surgery who thinks it may be secondary to the mesh. States that she noticed the bump swelled up yesterday with associated drainage which is similar to how it has started in the past. She does endorse some nausea and vomiting. Denies any fever or significant pain. Historical: - Allergies: 10:44 No Known Allergies; ss - PMHx: 10:44 GALLSTONES; Hypothyroidism; Kidney stone; ss - PSHx: 10:44 section; Cholecystectomy; hernia repair; Ligation of fallopian tube; ss Tonsillectomy; ROS: 11:06 Constitutional: Negative for fever, chills, and weight loss, sb4 11:06 Abdomen/GI: Positive for nausea and vomiting, 11:06 Skin: Positive for abscess, of the umbilical area, 11:06 All other systems are negative, Exam: 11:06 Constitutional: This is a well developed, well nourished patient who is awake, alert, sb4 and in no acute distress. Head/Face: Normocephalic, atraumatic. Eyes: Extra-ocular motions intact. Periorbital areas with no swelling, redness, or edema. ENT: Mucous membranes moist. Cardiovascular: Regular rate and rhythm with a normal S1 and S2. Respiratory: No increased work of breathing, no retractions or nasal flaring. 11:06 Abdomen/GI: Inspection: abdomen appears normal, Bowel sounds: normal, 11:06 Skin: abscess, that is small, of the umbilical area, Vital Signs: 10:42 BP 135 / 99; Pulse 80; Resp 16; Temp 98.6(TE); Pulse Ox 100% on R/A; ss 10:45 Weight 117.93 kg; Height 5 ft. 3 in. ; Pain 4/10; ss 10:45 Body Mass Index 46.06 (117.93 kg, 160.02 cm) ss 10:45 Pain Scale: Adult ss MDM: 10:08 Medical Screening Exam initiated sb4 12:28 Data reviewed: vital signs, nurses notes, radiologic studies, and as a result, I will sb4 discharge patient. Counseling: I had a detailed discussion with the patient and/or guardian regarding the historical points, exam findings, and any diagnostic results supporting the discharge/admit diagnosis, lab results, radiology results, the need for outpatient follow up, a general surgeon, to return to the emergency department if symptoms worsen or persist or if there are any questions or concerns that arise at home. 08/01 10:47 Order name: CBC with Diff; Complete Time: 11:34 sb4 08/01 10:47 Order name: CMP; Complete Time: 11:37 sb4 08/01 10:47 Order name: CT Abd/Pelvis - IV Contrast Only; Complete Time: 12:28 sb4 08/01 10:47 Order name: IV Saline Lock; Complete Time: 12:36 sb4 08/01 10:47 Order name: Labs collected and sent; Complete Time: 12:36 sb4 Administered Medications: No medications were administered Disposition Summary: 08/01/24 12:28 Discharge Ordered Notes: Location: Home sb4 Problem: new sb4 Symptoms: are unchanged sb4 Condition: Stable sb4 Diagnosis - Cellulitis of abdominal wall sb4 Followup: sb4 - With: Brennan Dennis MD - When: 1 week - Reason: Recheck today's complaints, Re-evaluation by your physician Discharge Instructions: - Discharge Summary Sheet sb4 - Cellulitis, Adult sb4 Forms: - Antibiotic Education sb4 - Patient Portal Instructions sb4 - Leadership Thank You Letter sb4 Prescriptions: - Bactrim DS 800-160 mg Oral Tablet - take 1 tablet ORAL route every 12 hours for 10 days; 20 tablet; Refills: 0, sb4 Product Selection Permitted Signatures: Dispatcher [employer] Ellie Brantley RN RN Rin Cleveland PA-C PA-C sb4
--- NOTE | 2024-08-01 12:28 | ER ---
Nurse's Notes [facility] Name: Qasim Resendez Age: 33 yrs Sex: Female : 1990 Arrival Date: 08/01/2024 Time: 10:00 Bed Hall1 [facility] MD: Diagnosis: Cellulitis of abdominal wall Presentation: 08/01 10:42 Chief complaint: Patient states: areas of redness and swelling to abd that began this ss morning. Coronavirus screen: Client denies travel out of the [place] in the last 14 days. Ebola Screen: Patient denies exposure to infectious person. Patient denies travel to an Ebola-affected area in the 21 days before illness onset. Initial Sepsis Screen: Does the patient meet any 2 criteria? No. Patient's initial sepsis screen is negative. Does the patient have a suspected source of infection? No. Patient's initial sepsis screen is negative. Risk Assessment: Do you want to hurt yourself or someone else? Patient reports no desire to harm self or others. Onset of symptoms was August 01, 2024. 10:42 Method Of Arrival: Ambulatory ss 10:42 Acuity: ELÍAS 3 ss Historical: - Allergies: 10:44 No Known Allergies; ss - PMHx: 10:44 GALLSTONES; Hypothyroidism; Kidney stone; ss - PSHx: 10:44 section; Cholecystectomy; hernia repair; Ligation of fallopian tube; ss Tonsillectomy; Screenin:41 Abuse screen: Denies threats or abuse. Denies injuries from another. Nutritional ss screening: No deficits noted. Tuberculosis screening: Never had TB. Assessment: 12:41 Reassessment: Patient appears in no apparent distress at this time. Patient and/or ss family updated on plan of care and expected duration. Pain level reassessed. Patient is alert, oriented x 3, equal unlabored respirations, skin warm/dry/pink. Patient states feeling better. Patient states symptoms have improved. Vital Signs: 10:42 BP 135 / 99; Pulse 80; Resp 16; Temp 98.6(TE); Pulse Ox 100% on R/A; ss 10:45 Weight 117.93 kg; Height 5 ft. 3 in. ; Pain 4/10; ss 10:45 Body Mass Index 46.06 (117.93 kg, 160.02 cm) ss 10:45 Pain Scale: Adult ED Course: 10:02 Patient arrived in ED. mg5 10:02 Rin Zaman PA-C is PHCP. sb4 10:03 Kevin Engel MD is Attending Physician. sb4 10:44 Triage completed. ss 10:44 Arm band placed on right wrist. ss 11:10 CT Abd/Pelvis - IV Contrast Only In Process Unspecified. EDMS 11:13 CT completed. Patient tolerated procedure well. Note: 20 g to rt ac by petra in ct, sj labs collected and sent. Patient moved back from CT. 12:28 Brennan Dennis MD is Referral Physician. sb4 12:41 Ellie Torres, RN is Primary Nurse. ss 12:41 Patient has correct armband on for positive identification. ss 12:41 No provider procedures requiring assistance completed. IV discontinued, intact, ss bleeding controlled, No redness/swelling at site. Pressure dressing applied. Administered Medications: No medications were administered Medication: 12:41 VIS not applicable for this client. ss Outcome: 12:28 Discharge ordered by MD. sb4 12:41 Discharged to home ambulatory, ss 12:41 Condition: good 12:41 Discharge instructions given to patient, family, Instructed on discharge instructions, follow up and referral plans. medication usage, Demonstrated understanding of instructions, follow-up care, medications, Prescriptions given X 1, 12:42 Patient left the ED. ss Signatures: Dispatcher [employer] Petra Akers Shelby, RN RN Rin Zaman PA-C PA-C sb4 Laura Clayton mg5
[2024-08-01 13:03] VITALS: BP 135/99; TEMP 98.6; O2SAT 100
== END 2024-08-01 12:42 | disposition home or self-care (01) ==
LOC: ER 10:00
DX: L03.311 Cellulitis of abdominal wall (principal); R11.2 Nausea with vomiting, unspecified
CPT/HCPCS: 85025; 36415; 80053; 74177; Q9967; 99284

== ENCOUNTER 2024-09-27 09:19 | Emergency (ER) | payer OTHER ==
--- OUTSIDE RECORDS SUMMARY | 2024-09-27 09:21 | XMS REPORT | Continuity of Care Document ---
Author Name Unknown Address [address] [facility] [address] [place] [address] [facility] thconnect Address [address] [facility] [address] [place] [address] Care Team Providers Care Truck Manager Name Role Phone [email or web address]_Kadiyala_S Attending Clinician Domenico Eastman Attending Clinician Unavailable [email or web address]_Kadiyala_S Admitting Clinician Jordan egan Physician, No Primary or Family Admitting Clinic tremayne Unavailable Payers Payer Name Policy Type Policy Number Effective Date Expirati on Date Source [facility] ([facility]) [id number] Allergies, Adverse Reactions, Alerts Allergy Name Allergy Type Status Severity Reaction(s) Onset Date Inactive Date Treating Clinician Comments Source tramadol DA Active U NAUSEA/VOMIT TING 2022-09 00:00: 00 [facility] No Known Allergie s DA Active U 04-06 00:00: 00 [facility] No Known Allergie s DA Active U - 00:00: 00 [facility] No Known Contrast Allergie s DA Active U 12-21 00:00: 00 [facility] No Known Drug Allergie s DA Active U 12-21 00:00: 00 [facility] No Known Food Allergie s DA Active U 12-21 00:00: 00 [facility] No Known Other Allergie s DA Active U 12-21 00:00: 00 [facility] No Known Drug Intolera nces DA Active U 2007-09 00:00: 00 [facility] No Known Drug Intolera nces DA Active U 2007-09 00:00: 00 [facility] Encounters Start Date/Time End Date/Time Encounter Type Admission Type Attending Clinicians Care Facility Care Department Encounter ID Source 2019-10-21 19:27:00 Inpatient [facility]ERS [id number] [facility] 2023-09-10 00:00:00 2023-09-10 00:00:00 Outpatient [email or web address] diyala_S PRIV PRIV [id number] [facility] 2023-09-04 06:52:00 2023-09-04 06:52:00 Outpatient KAI Jigar Domenico [facility] DAYS [id number] [facility] 2023-08-13 00:00:00 2023-08-13 00:00:00 Outpatient GC_[email or web address]_Ka diyala_S PRIV PRIV [id number] [facility] 2023-07-17 00:00:00 2023-07-17 00:00:00 Outpatient GC_GCBZW_Ka diyala_S PRIV PRIV [id number] [facility] 2023-06-02 00:00:00 2023-06-02 00:00:00 Outpatient GC_GCBZW_Ka diyala_S PRIV PRIV [id number] [facility] Results Test Description Test Time Test Comments Results Result Co mments Source BASIC METABOLIC [id number] 12:38:00* Test Item Value Reference Range Interpretation Comme nts SODIUM (test code = NA) 139 mmol/L 136-145 N POTASSIUM (test code = K) 3.9 mmol/L 3.5-5.1 N CHLORIDE (test code = CL) 105.0 mmol/L 98-107 N CARBON DIOXIDE (test code = CO2) 25.0 mmol/L 21-32 N ANION GAP (test code = GAP) 12.9 10-20 N GLUCOSE (test code = GLU) 88 mg/dL 74-106 N BLOOD UREA NITROGEN (test code = BUN) 8 mg/dL 7-18 N GLOMERULAR FILTRATION RATE (test code = GFR) > 60 mL/min >=60 The Glomerular Filtration Rate is a calculated parameterbased on serum Creatinine, patient age and sex. GFR valuesless than 60 mL/min/1.73 square meters are indicative ofChronic Kidney Disease. Values less than 15 mL/min/1.73square meters indicate Kidney failure. The calculation forGFR is based on the CKD-EPI (2020) calculation. This formulais race indifferent and is the recommended formula for GFRby the National Kidney Foundation for Adults.The GFR will not calculate if the sex is unknown or if thepatient's age is <18 years. CREATININE (test code = CREAT) 0.70 mg/dL 0.55-1.02 N Note change in reference range due to change in reagent. BUN/CREATININE RATIO (test code = BUN/CREA) 11.4 10-20 N CALCIUM (test code = CA) 8.9 mg/dL 8.5-10.1 N HCG SERUM [id number] 12:33:00* Test Item Value Reference Range Interpretation Comme nts HCG SERUM QUAL (test code = HCGQL) NEGATIVE NEGATIVE This HCGQL test is NOT applicable for MALE patients.Check with nurse about probable order error.If Tumor Marker Test needed, nurse should order test "HCGTU"(Test #[id number]) CBC W/AUTO [id number] 12:14:00* Test Item Value Reference Range Interpretation Comme nts WHITE BLOOD CELL (test code = WBC) 8.9 K/mm3 4.5-12.5 N RED BLOOD CELL (test code = RBC) 4.62 mill/mm3 3.7-5.2 N HEMOGLOBIN (test code = HGB) 14.1 gram/dL 11.5-15.5 N HEMATOCRIT (test code = HCT) 42.6 % 36.0-46.0 N MEAN CELL VOLUME (test code = MCV) 92.2 fL 80-98 N MEAN CELL HGB (test code = MCH) 30.5 picogram 27.0-33.0 N MEAN CELL HGB CONCETRATION (test code = MCHC) 33.1 gram/dL 33.0-36.0 N RED CELL DISTRIBUTION WIDTH (test code = RDW) 13.3 % 11.6-16.2 N RED CELL DISTRIBUTION WIDTH SD (test code = RDW-SD) 44.5 fL 37.0-51.0 N PLATELET COUNT (test code = PLT) 359 K/mm3 150-450 N MEAN PLATELET VOLUME (test c ode = MPV) 9.7 fL 6.7-11.0 N NEUTROPHIL % (test code = NT%) 54.3 % 39.0-69.0 N IMMATURE GRANULOCYTE % (test code = IG%) 0.2 % 0.0-5.0 N LYMPHOCYTE % (test code = LY%) 32.8 % 25.0-55.0 N MONOCYTE % (test code = MO%) 6.8 % 0.0-10.0 N EOSINOPHIL % (test code = EO%) 5.5 % 0.0-5.0 H BASOPHIL % (test code = BA%) 0.4 % 0.0-1.0 N NUCLEATED RBC % (test code = NRBC%) 0.0 % 0-0 N NEUTROPHIL # (test code = NT#) 4.85 K/mm3 1.8-7.7 N IMMATURE GRANULOCYTE # (test code = IG#) 0.02 x10 3/uL 0-0.03 N LYMPHOCYTE # (test code = LY#) 2.93 K/mm3 1.0-5.0 N MONOCYTE # (test code = MO#) 0.61 K/mm3 0-0.8 N EOSINOPHIL # (test code = EO#) 0.49 K/mm3 0.0-0.5 N BASOPHIL # (test code = BA#) 0.04 K/mm3 0.0-0.2 N NUCLEATED RBC # (test code = NRBC#) 0.00 K/mm3 0.0-0.1 N - XR CHEST 2 [id number] 20:09:00Name: REYNA EARLY [employer] [facility] : 1990 Age/S:29 /F [address] [facility] Unit#:[id number] [place]: [place] [address] Phys: Enrico Davies MD Dis Date: PHONE #: [phone] Status: REG ER FAX #: [phone] Exam Date: 10/21/2019 Reason: cough EXAMS: CPT CODE: [id number] XR CHEST 2 V [id number] REASON FOR EXAM: cough Exam Order Date: [...] at the bases at 2008 Reported and signedby: Jagdish Guaman M.D. CC: Enrico Davies MD Technologist: SALMA MARCIAL RT(R),RDMS,CT Trnscrpt Data:10/21/2019 (2008) t.BRUCE.VTL Orig Print D/T: S: 10/21/2019 (2011) PAGE 1 Signed Report
[2024-09-27] MEDS ORDERED: ONDANSETRON 4 MG/2 ML VIAL ONE (10:19)
[2024-09-27] MEDS ORDERED: NA CHLORIDE 0.9% 500 ML ONE (10:19)
[2024-09-27] MEDS ORDERED: HYDROCODONE/APAP 10/325 TAB ONE (10:19)
[2024-09-27 10:20] LABS: Absolute Basophils 0.1 K/uL (0-0.5); Absolute Eosinophils 0.3 K/uL (0-0.5); Absolute Lymphocytes (CBC) 1.9 K/uL (0.7-4.9); Absolute Monocytes 0.6 K/uL (0.1-1.3); Absolute Neutrophil 5.9 K/uL (1.8-8.0); Basophils % 0.8 % (0-1.3); Eosinophils % 3.8 % (0-4.4); Hematocrit 42.9 % (36.0-45.0); Hemoglobin 14.1 g/dL (12.0-15.0); Lymphocytes % 21.4 % (15.3-44.8); MCH 30.1 pg (27.0-35.0); MCHC 32.7 g/dL (32.0-36.0); Nucleated Red Blood Cells % 0.1 % (0-0); Platelets 330 thou/uL (152-406); RBC Red Blood Cell Count 4.67 M/uL (3.86-4.86); Red Cell Distribution Width 14.9 % (12.1-15.2)
--- NOTE | 2024-09-27 10:36 | RAD REPORT ---
EXAMINATION: CT ABDOMEN AND PELVIS WITH CONTRAST CLINICAL INDICATION: Abdominal pain TECHNIQUE: CT abdomen and pelvis was performed, after the administration of 100 cc Isovue-300.. Sagit ramona and coronal reconstructions were obtained. One or more of the following dose reduction techniques were used: Automated exposure control, adjustment of the mA and kV according to patient si ze, and iterative reconstruction. Unless otherwise specified, incidental findings do not require dedicated imaging follow-up. [id number]. Oral contrast was not given which limits evaluation of bowel and appendix. COMPARISON: .July 2024 FINDINGS: Cholecystectomy. Liver, spleen, pancreas, adrenals and kidneys appear unremarkable No evidence of diverticulitis. Normal appendix. Mild anterior subluxation L5 on S1 with subchondral sclerosis involving the vertebral bodies. Spondyl olysis L5. Postsurgical changes a ventral hernia repair : IMPRESSION: No acute abnormality displayed
[2024-09-27 10:39] LABS: ALT/SGPT 18 U/L (13-56); AST/SGOT 15 U/L (15-37); Albumin 3.4 g/dL (3.4-5.0); Albumin/Globulin Ratio 0.9 (1.1-1.8); Alkaline Phosphatase 80 U/L (45-117); Anion Gap 7.9 mEq/L (5.0-15.0); BUN Blood Urea Nitrogen 12 mg/dL (7-18); Bicarbonate 24 mEq/L (21-32); Bilirubin Total 0.3 mg/dL (0.2-1.0); Glomerular Filtration Rate 111 ml/min (=/>90); Glucose Level 104 mg/dL (74-106); Potassium 3.9 mEq/L (3.5-5.1); Protein, Total 7.4 g/dL (6.4-8.2); Sodium Level 140 mEq/L (136-145)
[2024-09-27 10:40] LABS: Bilirubin Direct < 0.2 mg/dL (0-0.2); Bilirubin Indirect, Calculated 0.1 mg/dL (0.2-0.8)
--- NOTE | 2024-09-27 11:27 | EDPHYS ---
Physician Documentation [facility] Name: Qasim Resendez Age: 34 yrs Sex: Female : 1990 Arrival Date: 09/27/2024 Time: 09:19 Bed 2 Private MD: ED Physician Guido Camejo HPI: 09/27 11:22 This 34 yrs old Female presents to ER via Ambulatory with complaints of Abdominal Pain. rn 11:23 The patient presents with abdominal pain in the lower abdomen. Onset: The rn symptoms/episode began/occurred 1 week(s) ago. Associated signs and symptoms: Pertinent positives: nausea and vomiting, Pertinent negatives: fever. Modifying factors: The symptoms are alleviated by nothing, the symptoms are aggravated by touching the area. Severity of pain: At its worst the pain was mild in the emergency department the pain has improved. The patient has experienced similar episodes in the past. Patient reports lower abdominal pain and cramping for the last week. Recently increased her Ozempic dose this past week. Also concerned because has had recurrent inflammation and infection, intra-abdominal, thought to be may be the mesh from previous hernia repair. Reports she does not know which one is causing her symptoms today so came in for evaluation. Has seen surgery before and they are not recommending redo hernia.. 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 - Infectious Disease History:: Denies. - Social history:: Smoking status: unknown. - Family history:: not pertinent. - Hospitalizations: : No recent hospitalization is reported. ROS: 11:23 Constitutional: Negative for fever, chills, and weight loss, Cardiovascular: Negative rn for chest pain, palpitations, and edema, Respiratory: Negative for shortness of breath, cough, wheezing, and pleuritic chest pain, Abdomen/GI: Positive for lower abdominal pain and nausea MS/Extremity: Negative for injury and deformity, Skin: Negative for injury, rash, and discoloration, Neuro: Negative for headache, weakness, numbness, tingling, and seizure, Exam: 11:23 Constitutional: This is a well developed, well nourished patient who is awake, alert, rn and in no acute distress. Cardiovascular: Regular rate and rhythm. No pulse deficits. Abdomen/GI: Soft, no focal tenderness or peritoneal signs. No distention. No skin changes. MS/ Extremity: Pulses equal, no cyanosis. Neurovascular intact. Full, normal range of motion. Equal circumference. Neuro: Awake and alert, GCS 15 Vital Signs: 09:38 BP 135 / 99; Pulse 80; Resp 17; Temp 97.7; Pulse Ox 99% ; Pain 5/10; jl7 09:47 Weight 116.12 kg; Height 5 ft. 4 in. ; jl7 11:40 BP 133 / 84; Pulse 74; Resp 17; Pulse Ox 98% ; rs5 09:47 Body Mass Index 43.94 (116.12 kg, 162.56 cm) jl7 09:38 Pain Scale: Adult jl7 MDM: 09:25 Medical Screening Exam initiated rn 11:23 Differential diagnosis: appendicitis, bowel obstruction, diverticulitis, non-specific rn abd pain, Ureterolithiasis, Intra-abdominal infection, mesh problem. Data reviewed: vital signs, nurses notes, lab test result(s), radiologic studies, CT scan, and as a result, I will discharge patient. Counseling: I had a detailed discussion with the patient and/or guardian regarding the historical points, exam findings, and any diagnostic results supporting the discharge/admit diagnosis, lab results, radiology results, the need for outpatient follow up, to return to the emergency department if symptoms worsen or persist or if there are any questions or concerns that arise at home. Special discussion: I discussed with the patient/guardian in detail that at this point there is no indication for admission to the hospital. It is understood, however, that if the symptoms persist or worsen the patient needs to return immediately for re-evaluation. Based on the history and exam findings, there is no indication for further emergent testing or inpatient evaluation. I discussed with the patient/guardian the need to see the primary care provider for further evaluation of the symptoms. ED course: No acute findings and imaging or blood work. No indication for antibiotics at this time. Explained to patient that this could be presentation in early process of infection and if anything worsens needs to return. No appendicitis. Will discharge home with return precautions.. 09/27 10:03 Order name: CBC with Diff; Complete Time: 11:05 rn 09/27 10:03 Order name: Basic Metabolic Panel; Complete Time: 11:05 rn 09/27 10:03 Order name: LFT's; Complete Time: 11:05 rn 09/27 10:03 Order name: CT Abd/Pelvis - IV Contrast Only; Complete Time: 11: rn 09/27 10:03 Order name: IV Start; Complete Time: 10:15 rn Administered Medications: 10:32 Drug: NS 0.9% IV 500 ml 500 ml IV at 1 bolus once; to be given as a bolus over 30 iw minutes Volume: 500 ml; Route: IV; Rate: 1 bolus; Site: right antecubital; 11:01 Follow up: Response: No adverse reaction; IV Status: Completed infusion; IV Intake: rs5 500ml 10:32 Drug: Ondansetron IVP 4 mg IVP once; over 2 minutes Route: IVP; Site: right antecubital;iw 10:48 Follow up: Response: No adverse reaction rs5 10:32 Drug: [place] PO 10 mg-325 mg 1 tabs PO once Route: PO; iw 11:41 Follow up: Response: No adverse reaction; Pain is decreased rs5 Disposition Summary: 09/27/24 11:26 Discharge Ordered Notes: Location: Home rn Problem: new rn Symptoms: have improved rn Condition: Stable rn Diagnosis - Abdominal pain, unspecified rn - Adverse effect of unspecified drugs, medicaments and biological substances rn Followup: rn - With: Private Physician - When: As needed - Reason: Recheck today's complaints, Re-evaluation by your physician Discharge Instructions: - Discharge Summary Sheet rn - Abdominal Pain, Adult rn Forms: - Medication Reconciliation Form rn - Antibiotic admission discharge rn - Prescription Opioid Use rn - Patient Portal Instructions rn - Leadership Thank You Letter rn Signatures: Dispatcher [employer] Mounika Paredes, RN RN iw Guido Camejo MD MD rn Leal, Jahala, RN RN jl7 Jermaine Yoo RN rs5 Corrections: (The following items were deleted from the chart) 09:47 09:46 PSHx: Ligation of fallopian tube; zaid jl7 10:03 10:03 CBC+H.LAB.BRZ ordered. EDMS EDMS 10:03 10:03 BASIC METABOLIC PANEL+C.LAB.BRZ ordered. EDMS EDMS 10:03 10:03 HEPATIC FUNCTION+C.LAB.BRZ ordered. EDMS EDMS 10:03 10:03 Abdomen Pelvis W Con+CT.RAD.BRZ ordered. EDMS EDMS 11:25 11:23 Constitutional: Negative for fever, chills, and weight loss, Cardiovascular: rn Negative for chest pain, palpitations, and edema, Respiratory: Negative for shortness of breath, cough, wheezing, and pleuritic chest pain, Abdomen/GI: Positive for lower abdominal pain and nausea MS/Extremity: Negative for injury and deformity, Neuro: Negative for headache, weakness, numbness, tingling, and seizure, rn
--- NOTE | 2024-09-27 11:27 | ER ---
Nurse's Notes [facility] Name: Qasim Resendez Age: 34 yrs Sex: Female : 1990 Arrival Date: 09/27/2024 Time: 09:19 Bed 2 Private MD: Diagnosis: Abdominal pain, unspecified;Adverse effect of unspecified drugs, medicaments and biological substances Presentation: 09/27 09:38 Chief complaint: Patient states: hx of cholecystectomy and hernia repair x 1 year ago, jl7 having some abdominal pain and has a history of a few post surgical problems. Reports N/V/D and recently increased Ozempic doseage. Coronavirus screen: At this time, the client does not indicate any symptoms associated with coronavirus-19. Ebola Screen: No symptoms or risks identified at this time. Initial Sepsis Screen: Does the patient meet any 2 criteria? No. Patient's initial sepsis screen is negative. Does the patient have a suspected source of infection? No. Patient's initial sepsis screen is negative. Risk Assessment: Do you want to hurt yourself or someone else? Patient reports no desire to harm self or others. Onset of symptoms is unknown. 09:38 Method Of Arrival: Ambulatory 7 09:38 Acuity: ELÍAS 3 jl7 Triage Assessment: 09:43 General: Appears in no apparent distress. uncomfortable, Behavior is calm, cooperative, jl7 appropriate for age. Pain: Complains of pain in right upper quadrant and left upper quadrant Pain currently is 6 out of 10 on a pain scale. GI: Abd is soft Abdomen is tender to palpation. 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 - Infectious Disease History:: Denies. - Social history:: Smoking status: unknown. - Family history:: not pertinent. - Hospitalizations: : No recent hospitalization is reported. Screenin:16 [facility] ED Fall Risk Assessment (Adult) History of falling in the last 3 months, iw including since admission No falls in past 3 months (0 pts) Confusion or Disorientation No (0 pts) Intoxicated or Sedated No (0 pts) Impaired Gait No (0 pts) Mobility Assist Device Used No (0 pt) Altered Elimination No (0 pt) Score/Fall Risk Level 0 - 2 = Low Risk Oriented to surroundings, Maintained a safe environment. Abuse screen: Denies threats or abuse. Nutritional screening: No deficits noted. Tuberculosis screening: No symptoms or risk factors identified. Assessment: 10:15 General: Appears in no apparent distress. Behavior is calm, cooperative. Pain: iw Complains of pain in abdomen and left upper quadrant and right upper quadrant. Neuro: Byrne Agitation-Sedation Scale (RASS): Level of Consciousness is awake, alert, obeys commands, Oriented to person, place, time, situation, Moves all extremities. Full function. Cardiovascular: Patient's skin is warm and dry. Respiratory: Respiratory effort is even, unlabored, Respiratory pattern is regular. GI: Abdomen is non-distended, Reports lower abdominal pain, upper abdominal pain, nausea, vomiting. Derm: Skin is intact, is healthy with good turgor. Musculoskeletal: Range of motion: intact in all extremities. 10:16 : No signs and/or symptoms were reported regarding the genitourinary system. EENT: No rs5 signs and/or symptoms were reported regarding the EENT system. 11:29 Reassessment: Patient appears in no apparent distress at this time. Patient and/or iw family updated on plan of care and expected duration. Pain level reassessed. Patient is alert, oriented x 3, equal unlabored respirations, skin warm/dry/pink. Vital Signs: 09:38 BP 135 / 99; Pulse 80; Resp 17; Temp 97.7; Pulse Ox 99% ; Pain 5/10; jl7 09:47 Weight 116.12 kg; Height 5 ft. 4 in. ; jl7 11:40 BP 133 / 84; Pulse 74; Resp 17; Pulse Ox 98% ; rs5 09:47 Body Mass Index 43.94 (116.12 kg, 162.56 cm) jl7 09:38 Pain Scale: Adult jl7 ED Course: 09:21 Patient arrived in ED. ra3 09:25 Guido Camejo MD is Attending Physician. rn 09:43 Triage completed. jl7 09:43 Arm band placed on right wrist. jl7 09:50 Jermaine Yoo, RN is Primary Nurse. rs5 10:15 Initial lab(s) drawn, by me, sent to lab. Inserted saline lock: 20 gauge in right iw antecubital area, using aseptic technique. Blood collected. Flushed with 10 mL NS. 10:18 CT Abd/Pelvis - IV Contrast Only In Process Unspecified. EDMS 10:41 Patient has correct armband on for positive identification. Provided Education on: . iw 10:41 No provider procedures requiring assistance completed. iw 11:46 IV discontinued, intact, bleeding controlled, No redness/swelling at site. Pressure iw dressing applied. Administered Medications: 10:32 Drug: NS 0.9% IV 500 ml 500 ml IV at 1 bolus once; to be given as a bolus over 30 iw minutes Volume: 500 ml; Route: IV; Rate: 1 bolus; Site: right antecubital; 11:01 Follow up: Response: No adverse reaction; IV Status: Completed infusion; IV Intake: rs5 500ml 10:32 Drug: Ondansetron IVP 4 mg IVP once; over 2 minutes Route: IVP; Site: right antecubital;iw 10:48 Follow up: Response: No adverse reaction rs5 10:32 Drug: [place] PO 10 mg-325 mg 1 tabs PO once Route: PO; iw 11:41 Follow up: Response: No adverse reaction; Pain is decreased rs5 Medication: 10:16 VIS not applicable for this client. iw Intake: 11:01 IV: 500ml; Total: 500ml. rs5 Outcome: 11:26 Discharge ordered by . rn 11:46 Discharged to home ambulatory, iw 11:46 Condition: good 11:46 Discharge instructions given to patient, Instructed on discharge instructions, follow up and referral plans. Demonstrated understanding of instructions, follow-up care, 11:46 Patient left the ED. iw Signatures: Dispatcher [employer] Mounika Paredes, Guido See RN, MD MD rn Leal, Jahala, RN RN jl7 Sotelo, Ricky, RN RN alison5 Bree Waddell ra3 Corrections: (The following items were deleted from the chart) 09:47 09:46 PSHx: Ligation of fallopian tube; zaid mar 13:58 13:58 BP 133 / 84; Pulse 74bpm; Resp 17bpm; Pulse Ox 98%; rs5 rs5
[2024-09-27 17:30] VITALS: BP 135/99; TEMP 97.7; O2SAT 99
== END 2024-09-27 11:46 | disposition home or self-care (01) ==
LOC: ER 09:19
DX: R10.30 Lower abdominal pain, unspecified (principal); T50.995A Adverse effect of other drugs, medicaments and biological substances, initial encounter
CPT/HCPCS: 85025; 80048; 36415; 80076; 74177; 96374; 99284; Q9967; J2405; J7040

== ENCOUNTER 2024-11-16 08:24 | Emergency (ER) | payer OTHER ==
[2024-11-16] MEDS ORDERED: NA CHLORIDE 0.9% 1,000 ML ONE (08:52)
[2024-11-16] MEDS ORDERED: ONDANSETRON 4 MG/2 ML VIAL ONE (08:52)
[2024-11-16] MEDS ORDERED: FAMOTIDINE 20 MG/2 ML VIAL IV ONE (08:52)
[2024-11-16 09:17] LABS: Absolute Eosinophils 0.3 K/uL (0-0.5); Absolute Monocytes 0.5 K/uL (0.1-1.3); Absolute Neutrophil 6.8 K/uL (1.8-8.0); Basophils % 0.4 % (0-1.3); Hematocrit 42.2 % (36.0-45.0); Hemoglobin 14.3 g/dL (12.0-15.0); Lymphocytes % 20.7 % (15.3-44.8); MCH 30.7 pg (27.0-35.0); MCHC 33.9 g/dL (32.0-36.0); MCV 90.7 fL (80-100); MPV 8.1 fL (7.6-11.3); Monocytes % 5.6 % (3.3-12.3); Neutrophils % 70.3 % (41.7-73.7); Platelets 325 thou/uL (152-406); RBC Red Blood Cell Count 4.65 M/uL (3.86-4.86); Red Cell Distribution Width 14.8 % (12.1-15.2)
[2024-11-16 09:35] LABS: Albumin 3.5 g/dL (3.4-5.0); Albumin/Globulin Ratio 0.8 (1.1-1.8); Anion Gap 6.7 mEq/L (5.0-15.0); Bilirubin Total 0.2 mg/dL (0.2-1.0); Globulin 4.3 g/dL (2.3-3.5); Potassium 3.7 mEq/L (3.5-5.1); Protein, Total 7.8 g/dL (6.4-8.2)
[2024-11-16 09:53] LABS: SARS-CoV-2 Antigen CONTROL BLUE LINE VIS/BG OK; SARS-CoV-2 Antigen Rapid Res Negative (Negative)
--- NOTE | 2024-11-16 10:02 | RAD REPORT ---
EXAMINATION: CT ABDOMEN AND PELVIS WITH CONTRAST CLINICAL INDICATION: Female, 34 years old.Abd pain;Nausea / vomiting TECHNIQUE: CT abdomen and pelvis was performed, after the administration of IV contrast, as per [facility] protocol. Axial, sagittal and coronal reconstructions were obtained. One or more of the following dose reduction techniques were used: Automated exposure control, adjustment of the mA and/o r kV according to patient size, and/or iterative reconstruction. Unless otherwise specified, incidental findings do not require dedicated imaging follow-up. [id number]. COMPARISON: 09/27/2024 FINDINGS: LOWER CHEST: No acute process identified.No significant pericardial effusion. Mild circumferential th ickening of the distal esophagus which could reflect esophagitis. UPPER GI: No significant abnormality. LIVER: Hepatic steatosis, but otherwise unremarkable. GALLBLADDER/BILE DUCTS: Cholecystectomy. Mild extra-hepatic biliary ductal dilatation is likely relat ed to the post-cholecystectomy state. Consider correlating with LFT's.? PANCREAS: No mass, ductal dilation, or tino-pancreatic fluid. SPLEEN: Unremarkable. ADRENALS: No adrenal masses. KIDNEYS AND URETERS: No hydronephrosis.No suspicious renal mass. Nonobstructing stone in the right ki dney. ABDOMINAL AORTA AND OTHER VESSELS: Normal caliber aorta and IVC. PERITONEUM: No abnormal free fluid. No free air. LYMPH NODES: No pathologic lymphadenopathy. ABDOMINAL WALL: Similar soft tissue thickening at the umbilicus. SMALL BOWEL/COLON: Small bowel has normal course and caliber. No colonic wall thickening or pericolon ic inflammatory changes.Normal appendix. URINARY BLADDER: Underdistended but grossly unremarkable. REPRODUCTIVE ORGANS: No pathologic process. MUSCULOSKELETAL: Grade 2 anterolisthesis of L5 on S1 with bilateral pars defects. Severe disc height loss is present. ADDITIONAL FINDINGS: None. IMPRESSION: No acute or significant abnormalities seen in the abdomen or pelvis. Incidental findings as noted abo ve.
--- NOTE | 2024-11-16 10:30 | EDPHYS ---
Physician Documentation [facility] Name: Qasim Resendez Age: 34 yrs Sex: Female : 1990 Arrival Date: 11/16/2024 Time: 08:24 Bed 8 Private MD: ED Physician Guido Camejo HPI: 11/16 10:26 This 34 yrs old Female presents to ER via Ambulatory with complaints of Vomiting, rn Abdominal Pain, cold sweats. 10:26 The patient presents to the emergency department with nausea, vomiting, diarrhea, rn abdominal pain. 10:26 Onset: The symptoms/episode began/occurred 1 week(s) ago. Possible causes: unknown. rn Severity of symptoms: At their worst the symptoms were moderate in the emergency department the symptoms are unchanged. The patient has not experienced similar symptoms in the past. Patient reports 1 week of nausea/vomiting/diarrhea with abdominal cramping. Has been on Ozempic for 4 months and recently had a decrease in dosage. Reports "sulfur burps" but now 1 week of vomiting and diarrhea that she was not getting with Ozempic previously. No fever or chills. No blood in stool.. Historical: - Allergies: 08:47 No Known Allergies; db - PMHx: 08:47 GALLSTONES; Hypothyroidism; Kidney stone; db - PSHx: 08:47 section; Cholecystectomy; Ligation of fallopian tube; Tonsillectomy; db - Immunization history:: Adult Immunizations unknown. - Infectious Disease History:: Denies. - Social history:: Smoking status: Patient denies any tobacco usage or history of. - Family history:: not pertinent. - Hospitalizations: : No recent hospitalization is reported. ROS: 10:26 Constitutional: Negative for fever, chills, and weight loss, Neck: Negative for injury, rn pain, and swelling, Cardiovascular: Negative for chest pain, palpitations, and edema, Respiratory: Negative for shortness of breath, cough, wheezing, and pleuritic chest pain, Abdomen/GI: Positive for abdominal cramping with nausea/vomiting/diarrhea MS/Extremity: Negative for injury and deformity, Skin: Negative for injury, rash, and discoloration, Neuro: Positive for generalized weakness and malaise Exam: 10:26 Constitutional: This is a well developed, well nourished patient who is awake, alert, rn and in no acute distress. ENT: Dry mucous membranes Cardiovascular: Regular rate and rhythm. No pulse deficits. Respiratory: No increased work of breathing, no retractions or nasal flaring. Abdomen/GI: Soft, no focal tenderness. No distention. No guarding or rebound Skin: Warm, dry Neuro: Awake and alert, GCS 15, oriented to person, place, time, and situation. Motor strength 5/5 in all extremities. Sensory grossly intact. Normal gait Vital Signs: 08:42 BP 136 / 99; Pulse 83; Resp 18; Temp 98; Pulse Ox 100% ; Weight 109.32 kg; Height 5 ft. db 4 in. ; 09:10 BP 106 / 80; Pulse 56; Resp 16; Pulse Ox 98% ; db 10:45 BP 120 / 86; Pulse 53; Resp 18; Pulse Ox 100% ; db 08:42 Body Mass Index 41.37 (109.32 kg, 162.56 cm) db MDM: 08:29 Medical Screening Exam initiated rn 10:26 Differential diagnosis: Nonspecific abd pain, gastritis, diverticulitis, viral rn gastroenteritis, gastroenteritis, Side effect of Ozempic, viral syndrome. Data reviewed: vital signs, nurses notes, lab test result(s), radiologic studies, CT scan, and as a result, I will discharge patient. Counseling: I had a detailed discussion with the patient and/or guardian regarding the historical points, exam findings, and any diagnostic results supporting the discharge/admit diagnosis, lab results, radiology results, the need for outpatient follow up, to return to the emergency department if symptoms worsen or persist or if there are any questions or concerns that arise at home. Response to treatment: the patient's symptoms have mildly improved after treatment, and as a result, I will discharge patient. Special discussion: Based on the patient's Hx, exam, and Dx evaluation, there is no indication for emergent surgery or inpatient Tx. It is understood by the patient/guardian that if the Sx's persist or worsen they need to return immediately for re-evaluation. I discussed with the patient/guardian in detail that at this point there is no indication for admission to the hospital. It is understood, however, that if the symptoms persist or worsen the patient needs to return immediately for re-evaluation. ED course: No acute findings and workup including blood and CT imaging. Most likely combination of Ozempic side effects given sulfur descriptions but likely secondary to possible viral illness on top of it given we have been seeing a lot of patients recently with these constellation of symptoms. Will discharge home with return precautions and antacids to aid. Already has Zofran at home.. 11/16 08:46 Order name: CBC with Diff; Complete Time: 10:13 rn 11/16 08:46 Order name: CMP; Complete Time: 10:13 rn 11/16 08:46 Order name: Lipase; Complete Time: 10:13 rn 11/16 08:46 Order name: Urinalysis w/ reflexes rn 11/16 08:47 Order name: Flu; Complete Time: 10:13 rn 11/16 08:47 Order name: SARS-COV-2 Antigen Rapid; Complete Time: 10:13 rn 11/16 08:46 Order name: CT Abd/Pelvis - IV Contrast Only; Complete Time: 10:13 rn 11/16 08:46 Order name: IV Saline Lock; Complete Time: 09:26 rn 11/16 08:46 Order name: Labs collected and sent; Complete Time: 09:06 rn Administered Medications: 08:55 Drug: Famotidine IVP 20 mg IVP once; dilute with 10 mL 0.9% NaCl; give over 2 minutes db Route: IVP; Site: right antecubital; 11:01 Follow up: Response: No adverse reaction db 08:55 Drug: Ondansetron IVP 4 mg IVP once; over 2 minutes Route: IVP; Site: right antecubital;db 11:01 Follow up: Response: No adverse reaction db 08:55 Drug: NS 0.9% IV 1000 ml IV at 1 bolus Per protocol; to be given as a bolus over 60 db minutes Route: IV; Rate: 1 bolus; Site: right antecubital; 11:01 Follow up: Response: No adverse reaction; IV Status: Completed infusion; IV Intake: db 1000ml Disposition Summary: 11/16/24 10:30 Discharge Ordered Notes: Location: Home rn Problem: new rn Symptoms: have improved rn Condition: Stable rn Diagnosis - Vomiting rn - Diarrhea, unspecified rn Followup: rn - With: Private Physician - When: As needed - Reason: Recheck today's complaints, Re-evaluation by your physician Discharge Instructions: - Discharge Summary Sheet rn - Abdominal Pain, Adult rn - Diarrhea, Adult rn - Vomiting, Adult rn Forms: - Medication Reconciliation Form rn - 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
--- NOTE | 2024-11-16 10:30 | ER ---
Nurse's Notes [facility] Name: Qasim Resendez Age: 34 yrs Sex: Female : 1990 Arrival Date: 11/16/2024 Time: 08:24 Bed 8 Private MD: Diagnosis: Vomiting;Diarrhea, unspecified Presentation: 11/16 08:42 Chief complaint: Patient states: VOMITING ABD PAIN AND COLD SWEATS STATES LAST WEEK db STARTED WITH VOMITING "SULFUR" AFTER INCREASING OZEMPIC DOSE. STATES STARTED AGAIN WITH VOMITING AT 0400 TODAY. ON 1 MG OZEMPIC . STATES TRIED ZOFRAN PO DID NOT HELP. Coronavirus screen: Client denies travel out of the [place] in the last 14 days. At this time, the client does not indicate any symptoms associated with coronavirus-19. Ebola Screen: Patient negative for fever greater than or equal to 101.5 degrees Fahrenheit, and additional compatible Ebola Virus Disease symptoms Patient denies exposure to infectious person. Patient denies travel to an Ebola-affected area in the 21 days before illness onset. No symptoms or risks identified at this time. Initial Sepsis Screen: Does the patient meet any 2 criteria? No. Patient's initial sepsis screen is negative. Does the patient have a suspected source of infection? No. Patient's initial sepsis screen is negative. Risk Assessment: Do you want to hurt yourself or someone else? Patient reports no desire to harm self or others. Onset of symptoms was November 16, 2024 at 04:00. 08:42 Method Of Arrival: Ambulatory db 08:42 Acuity: ELÍAS 3 db Triage Assessment: 08:47 General: Appears in no apparent distress. comfortable, Behavior is calm, cooperative. db Pain: Complains of pain in abdomen. Neuro: Level of Consciousness is awake, alert, obeys commands, Oriented to person, place, time, situation, Speech is normal. Cardiovascular: No deficits noted. Respiratory: No deficits noted. Airway is patent Respiratory effort is even, unlabored, Respiratory pattern is regular, symmetrical. GI: Reports nausea, vomiting. Historical: - Allergies: 08:47 No Known Allergies; db - PMHx: 08:47 GALLSTONES; Hypothyroidism; Kidney stone; db - PSHx: 08:47 section; Cholecystectomy; Ligation of fallopian tube; Tonsillectomy; db - Immunization history:: Adult Immunizations unknown. - Infectious Disease History:: Denies. - Social history:: Smoking status: Patient denies any tobacco usage or history of. - Family history:: not pertinent. - Hospitalizations: : No recent hospitalization is reported. Screenin:06 [facility] ED Fall Risk Assessment (Adult) History of falling in the last 3 months, db including since admission No falls in past 3 months (0 pts) Confusion or Disorientation No (0 pts) Intoxicated or Sedated No (0 pts) Impaired Gait No (0 pts) Mobility Assist Device Used No (0 pt) Altered Elimination No (0 pt) Score/Fall Risk Level 0 - 2 = Low Risk Oriented to surroundings, Maintained a safe environment. Abuse screen: Denies threats or abuse. Denies injuries from another. Nutritional screening: No deficits noted. Tuberculosis screening: No symptoms or risk factors identified. Assessment: 09:06 Reassessment: Patient appears in no apparent distress at this time. Patient and/or db family updated on plan of care and expected duration. Pain level reassessed. Patient is alert, oriented x 3, equal unlabored respirations, skin warm/dry/pink. General: Appears in no apparent distress. comfortable, Behavior is calm, cooperative. 11:00 Reassessment: Patient appears in no apparent distress at this time. Patient and/or db family updated on plan of care and expected duration. Pain level reassessed. Patient is alert, oriented x 3, equal unlabored respirations, skin warm/dry/pink. Patient states feeling better. Patient states symptoms have improved. Neuro: Level of Consciousness is awake, alert, obeys commands, Oriented to person, place, time, situation. GI:. Vital Signs: 08:42 BP 136 / 99; Pulse 83; Resp 18; Temp 98; Pulse Ox 100% ; Weight 109.32 kg; Height 5 ft. db 4 in. ; 09:10 BP 106 / 80; Pulse 56; Resp 16; Pulse Ox 98% ; db 10:45 BP 120 / 86; Pulse 53; Resp 18; Pulse Ox 100% ; db 08:42 Body Mass Index 41.37 (109.32 kg, 162.56 cm) db ED Course: 08:28 Patient arrived in ED. al6 08:29 Guido Camejo MD is Attending Physician. rn 08:39 Abrams, Karen, RN is Primary Nurse. db 08:47 Triage completed. db 08:48 Arm band placed on. db 09:06 Patient has correct armband on for positive identification. Bed in low position. Call db light in reach. Side rails up X 1. Pulse ox on. NIBP on. Warm blanket given. Pillow given. 09:06 Flu Sent. db 09:06 SARS-COV-2 Antigen Rapid Sent. db 09:42 CT Abd/Pelvis - IV Contrast Only In Process Unspecified. EDMS 11:00 Provided Education on: DISCHARGE, PRESCRIPTIONS AND FOLLOWUP. db 11:00 No provider procedures requiring assistance completed. IV discontinued, intact, db bleeding controlled, No redness/swelling at site. Administered Medications: 08:55 Drug: Famotidine IVP 20 mg IVP once; dilute with 10 mL 0.9% NaCl; give over 2 minutes db Route: IVP; Site: right antecubital; 11:01 Follow up: Response: No adverse reaction db 08:55 Drug: Ondansetron IVP 4 mg IVP once; over 2 minutes Route: IVP; Site: right antecubital;db 11:01 Follow up: Response: No adverse reaction db 08:55 Drug: NS 0.9% IV 1000 ml IV at 1 bolus Per protocol; to be given as a bolus over 60 db minutes Route: IV; Rate: 1 bolus; Site: right antecubital; 11:01 Follow up: Response: No adverse reaction; IV Status: Completed infusion; IV Intake: db 1000ml Medication: 09:06 VIS not applicable for this client. db Intake: 11:01 IV: 1000ml; Total: 1000ml. db Outcome: 10:30 Discharge ordered by . rn 11:00 Discharged to home ambulatory, db 11:00 Condition: stable 11:00 Discharge instructions given to patient, Instructed on discharge instructions, follow up and referral plans. Prescriptions given X 1, 11:01 Patient left the ED. db Signatures: Dispatcher [employer] EDMS Guido Camejo MD MD rn Benton, Danielle, RN RN db Landin, Alissa al6
[2024-11-16 11:17] LABS: Calcium Oxalate Crystals- Ur Moderate /HPF (None Seen); Urine Bacteria <20 /HPF (<20); Urine Bilirubin NEGATIVE (Negative); Urine Blood Negative (Negative); Urine Clarity Extremely Turbid (Clear); Urine Color Light-Yellow (Yellow); Urine Culture Reflex Order NOT NEEDED; Urine Glucose NEGATIVE (Negative); Urine Ketones NEGATIVE (Negative); Urine Microscopic Reflex YN ORDER UMIC; Urine Mucus 2+ /HPF (None Seen); Urine Nitrite NEGATIVE (Negative); Urine Protein TRACE (Negative); Urine Urobilinogen Normal (Normal); Urine WBC <5 /HPF (<5)
[2024-11-16 13:15] VITALS: TEMP 98
[2024-11-16 13:17] VITALS: BP 120/86; O2SAT 100
== END 2024-11-16 11:01 | disposition home or self-care (01) ==
LOC: ER 08:24
DX: R11.10 Vomiting, unspecified (principal); R19.7 Diarrhea, unspecified; R53.1 Weakness; R53.81 Other malaise; Z11.52 Encounter for screening for COVID-19
CPT/HCPCS: 85025; 81001; 36415; 83690; 80053; 87804 ×2; 74177; 87811; Q9967; J2405; J7030

== ENCOUNTER 2024-12-27 10:00 | Emergency (ER) | payer OTHER ==
[2024-12-27] MEDS ORDERED: ONDANSETRON 4 MG/2 ML VIAL ONE (10:20)
[2024-12-27] MEDS ORDERED: NA CHLORIDE 0.9% 1,000 ML ONE (10:20)
[2024-12-27 10:59] LABS: Specific Gravity 1.029 (1.005-1.030); Urine Bacteria <20 /HPF (<20); Urine Bilirubin NEGATIVE (Negative); Urine Blood Negative (Negative); Urine Clarity Extremely Turbid (Clear); Urine Color Light-Yellow (Yellow); Urine Culture Reflex Order NOT NEEDED; Urine Glucose NEGATIVE (Negative); Urine Ketones NEGATIVE (Negative); Urine Microscopic Reflex YN ORDER UMIC; Urine Mucus 1+ /HPF (None Seen); Urine Nitrite NEGATIVE (Negative); Urine Protein NEGATIVE (Negative); Urine RBC <5 /HPF (None Seen); Urine Urobilinogen Normal (Normal); Urine WBC <5 /HPF (<5)
[2024-12-27 11:02] LABS: Specific Gravity 1.029 (1.005-1.030)
[2024-12-27 11:03] LABS: Absolute Basophils 0.1 K/uL (0-0.5); Absolute Eosinophils 0.3 K/uL (0-0.5); Absolute Lymphocytes (CBC) 2.3 K/uL (0.7-4.9); Absolute Monocytes 0.4 K/uL (0.1-1.3); Absolute Neutrophil 5.6 K/uL (1.8-8.0); Basophils % 1.2 % (0-1.3); Hematocrit 39.9 % (36.0-45.0); Hemoglobin 13.6 g/dL (12.0-15.0); Lymphocytes % 26.5 % (15.3-44.8); MCH 31.7 pg (27.0-35.0); MCHC 34.2 g/dL (32.0-36.0); MCV 92.5 fL (80-100); MPV 8.1 fL (7.6-11.3); Monocytes % 4.6 % (3.3-12.3); Neutrophils % 64.7 % (41.7-73.7); Platelets 341 thou/uL (152-406); RBC Red Blood Cell Count 4.31 M/uL (3.86-4.86); Red Cell Distribution Width 14.3 % (12.1-15.2)
[2024-12-27 11:25] LABS: Albumin 3.5 g/dL (3.4-5.0); Albumin/Globulin Ratio 0.9 (1.1-1.8); Anion Gap 5.9 mEq/L (5.0-15.0); Bilirubin Total 0.3 mg/dL (0.2-1.0); Globulin 3.8 g/dL (2.3-3.5); Protein, Total 7.3 g/dL (6.4-8.2)
[2024-12-27 11:26] LABS: Potassium 3.9 mEq/L (3.5-5.1)
--- NOTE | 2024-12-27 12:56 | RAD REPORT ---
EXAMINATION: CT Abdomen Pelvis Wo Contrast CLINICAL INDICATION: Female, 34 years old. FLANK PAIN TECHNIQUE: CT abdomen and pelvis was performed, without IV contrast, as per department protocol. Axia l, sagittal and coronal reconstructions were obtained. One or more of the following dose reduction techniques were used: Automated exposure control, adjustment of the mA and kV according to the patien t size, and iterative reconstruction. Unless otherwise specified, incidental findings do not require dedicated imaging follow-up. COMPARISON: 11/16/2024. FINDINGS: The lack of intravenous contrast limits the sensitivity of this exam for evaluation of solid visceral organs, vascular structures, and retroperitoneum. LOWER CHEST: The visualized lung bases are clear. LIVER: Normal in size and contour. No focal lesion. BILIARY SYSTEM: Status post cholecystectomy. SPLEEN: Normal size. No focal lesion. PANCREAS: No mass, ductal dilation, or tino-pancreatic fluid. ADRENALS: Normal; no mass. KIDNEYS AND URETERS: Normal size and contour. Bilateral small nonobstructing calculi largest measurin g 4 mm at the right upper pole and 2 to 3 mm on the left at the interpolar zone. No hydronephrosis. URINARY BLADDER: Decompressed limiting evaluation. GASTROINTESTINAL TRACT: No evidence of bowel obstruction, significant free fluid, free air or abscess . APPENDIX: Normal appendix. LYMPH NODES: No lymphadenopathy. MUSCULOSKELETAL: No acute or suspicious osseous abnormality. Stable grade 1 spondylolisthesis at L5-S 1. ADDITIONAL FINDINGS: None. IMPRESSION: Bilateral nonobstructing small renal calculi not exceeding 4 mm in size. No other acute or concerning abnormalities in the abdomen or pelvis, with evaluation limited by lack of IV contrast.
--- NOTE | 2024-12-27 13:03 | ER ---
Nurse's Notes [facility] Name: Qasim Resendez Age: 34 yrs Sex: Female : 1990 Arrival Date: 12/27/2024 Time: 10:00 Bed 13 Private MD: Diagnosis: Nausea with vomiting, unspecified;Diarrhea, unspecified;Dehydration Presentation: 12/27 10:16 Chief complaint: Patient states: n/v/d and right flank pain since after taking kc6 her Ozempic. Coronavirus screen: At this time, the client does not indicate any symptoms associated with coronavirus-19. Ebola Screen: No symptoms or risks identified at this time. Initial Sepsis Screen: Does the patient meet any 2 criteria? No. Patient's initial sepsis screen is negative. Does the patient have a suspected source of infection? No. Patient's initial sepsis screen is negative. Risk Assessment: Do you want to hurt yourself or someone else? Patient reports no desire to harm self or others. Onset of symptoms was December 27, 2024. 10:16 Method Of Arrival: Ambulatory [facility] 10:16 Acuity: ELÍAS 3 kc6 Historical: - Allergies: 10:17 No Known Allergies; kc6 - PMHx: 10:17 Kidney stone; Hypothyroidism; GALLSTONES; nikos's (GALLSTONES); kc6 - PSHx: 10:17 Tonsillectomy; Ligation of fallopian tube; hernia repair; Cholecystectomy; kc6 section; - Immunization history:: Adult Immunizations up to date. - Infectious Disease History:: Denies. - Social history:: Smoking status: Reported history of juuling and/or vaping. Screenin:16 [facility] ED Fall Risk Assessment (Adult) History of falling in the last 3 months, kc6 including since admission No falls in past 3 months (0 pts) Confusion or Disorientation No (0 pts) Intoxicated or Sedated No (0 pts) Impaired Gait No (0 pts) Mobility Assist Device Used No (0 pt) Altered Elimination No (0 pt) Score/Fall Risk Level 0 - 2 = Low Risk Oriented to surroundings, Maintained a safe environment, Educated pt \T\ family on fall prevention, incl call for assistance when getting out of bed. Abuse screen: Denies threats or abuse. Denies injuries from another. Nutritional screening: No deficits noted. Tuberculosis screening: No symptoms or risk factors identified. Assessment: 10:16 General: Appears in no apparent distress. comfortable, well groomed, well developed, kc6 Behavior is calm, cooperative, appropriate for age. Pain: Complains of pain in posterior aspect of right lateral abdomen and anterior aspect of right lateral abdomen. Neuro: Level of Consciousness is awake, alert, obeys commands, Oriented to person, place, time, situation, Appropriate for age. Cardiovascular: Capillary refill < 3 seconds. Respiratory: Airway is patent Trachea midline Respiratory effort is even, unlabored, Respiratory pattern is regular, symmetrical. GI: Abdomen is round non-distended, Bowel sounds present X 4 quads. Abd is soft and non tender X 4 quads. Reports lower abdominal pain, diarrhea, nausea, vomiting. : Urine is clear, Reports urinary frequency. EENT: No signs and/or symptoms were reported regarding the EENT system. Derm: No signs and/or symptoms reported regarding the dermatologic system. Skin is intact, is healthy with good turgor, Skin is pink, warm \T\ dry. Musculoskeletal: No signs and/or symptoms reported regarding the musculoskeletal system. Circulation, motion, and sensation intact. Range of motion: intact in all extremities. 11:16 Reassessment: Patient appears in no apparent distress at this time. No changes from kc6 previously documented assessment. Patient and/or family updated on plan of care and expected duration. Pain level reassessed. Patient is alert, oriented x 3, equal unlabored respirations, skin warm/dry/pink. 12:25 Reassessment: Patient appears in no apparent distress at this time. No changes from kc6 previously documented assessment. Patient and/or family updated on plan of care and expected duration. Pain level reassessed. Patient is alert, oriented x 3, equal unlabored respirations, skin warm/dry/pink. 13:11 Reassessment: Patient appears in no apparent distress at this time. No changes from kc6 previously documented assessment. Patient and/or family updated on plan of care and expected duration. Pain level reassessed. Patient is alert, oriented x 3, equal unlabored respirations, skin warm/dry/pink. Patient states feeling better. Patient states symptoms have improved. Vital Signs: 10:16 BP 123 / 85; Pulse 62; Resp 16 S; Temp 98(O); Pulse Ox 96% on R/A; Weight 106.14 kg kc6 (R); Height 5 ft. 4 in. (R); 11:05 BP 130 / 82; Pulse 52; Resp 16 S; Pulse Ox 96% on R/A; kc6 10:16 Body Mass Index 40.17 (106.14 kg, 162.56 cm) kc6 ED Course: 10:02 Patient arrived in ED. mr 10:03 Benson Gao is Attending Physician. ci 10:05 Mahi Espinoza, RN is Primary Nurse. kc6 10:16 Patient has correct armband on for positive identification. Bed in low position. Call kc6 light in reach. Side rails up X 1. Pulse ox on. NIBP on. Door closed. Noise minimized. Lights dimmed. Pillow given. Verbal reassurance given. 10:17 Triage completed. kc6 10:17 Arm band placed on. kc6 10:44 CBC with Diff Sent. cc6 10:44 CMP Sent. cc6 10:44 Lipase Sent. cc6 10:45 Test, Urine Sent. cc6 10:45 Urinalysis w/ reflexes Sent. cc6 11:54 CT Abd/Pelvis - Without Contrast In Process Unspecified. EDMS 13:12 No provider procedures requiring assistance completed. IV discontinued, intact, kc6 bleeding controlled, No redness/swelling at site. Pressure dressing applied. Administered Medications: 10:55 Drug: Ondansetron IVP 4 mg IVP once; over 2 minutes Route: IVP; Site: right antecubital;kc6 12:25 Follow up: Response: No adverse reaction; Nausea is decreased kc6 10:55 Drug: NS 0.9% IV 1000 ml IV at 1 bolus Per protocol; to be given as a bolus over 60 kc6 minutes Route: IV; Rate: 1 bolus; Site: right antecubital; 13:15 Follow up: Response: No adverse reaction; IV Status: Completed infusion; IV Intake: kc6 1000ml Medication: 13:14 VIS not applicable for this client. kc6 Intake: 13:15 IV: 1000ml; Total: 1000ml. kc6 Outcome: 13:02 Discharge ordered by . ci 13:14 Discharged to home ambulatory, kc6 13:14 Condition: improved 13:14 Discharge instructions given to patient, Instructed on discharge instructions, follow up and referral plans. Demonstrated understanding of instructions, follow-up care, 13:14 Patient left the ED. kc6 Signatures: Dispatcher [employer] Selena Patton, Mahi Mitchell RN RN kc6 PujaerogeliokBenson shen Cassandra cc6
--- NOTE | 2024-12-27 13:03 | EDPHYS ---
Physician Documentation [facility] Name: Qasim Resendez Age: 34 yrs Sex: Female : 1990 Arrival Date: 12/27/2024 Time: 10:00 Bed 13 Private MD: ED Physician Benson Gao HPI: 12/27 11:33 This 34 yrs old Female presents to ER via Ambulatory with complaints of Dehydrated. ci 11:33 Patient is a 34-year-old female with PMH Nikos thyroiditis, nephrolithiasis who ci presents to the ED with chief complaint of nausea vomiting and diarrhea. Patient reports that she is taking Ozempic and does have nausea/vomiting at baseline but yesterday she developed diarrhea and wanted to make sure she is not dehydrated. Denies hematochezia, melena or hematemesis. Denies any abdominal pain, fever, hematuria. Historical: - Allergies: 10:17 No Known Allergies; kc6 - PMHx: 10:17 Kidney stone; Hypothyroidism; GALLSTONES; nikos's (GALLSTONES); kc6 - PSHx: 10:17 Tonsillectomy; Ligation of fallopian tube; hernia repair; Cholecystectomy; kc6 section; - Immunization history:: Adult Immunizations up to date. - Infectious Disease History:: Denies. - Social history:: Smoking status: Reported history of juuling and/or vaping. ROS: 11:33 Constitutional: Negative for fever, chills, and weight loss, ci 11:33 Abdomen/GI: Positive for nausea, vomiting, and diarrhea, Negative for abdominal pain, hematemesis, black/tarry stool, rectal pain, 11:33 : Negative for urinary symptoms, urinary frequency, hematuria, burning with urination, Exam: 11:33 Constitutional: This is a well developed, well nourished patient who is awake, alert, ci and in no acute distress. Head/Face: Normocephalic, atraumatic. Chest/axilla: Normal chest wall appearance and motion. Nontender with no deformity. No lesions are appreciated. Cardiovascular: Regular rate and rhythm with a normal S1 and S2. No gallops, murmurs, or rubs. Normal PMI, no JVD. No pulse deficits. Abdomen/GI: Soft, non-tender, with normal bowel sounds. No distension or tympany. No guarding or rebound. No evidence of tenderness throughout. Back: No spinal tenderness. No costovertebral tenderness. Full range of motion. Skin: Warm, dry with normal turgor. Normal color with no rashes, no lesions, and no evidence of cellulitis. Neuro: Awake and alert, GCS 15, oriented to person, place, time, and situation. Cranial nerves II-XII grossly intact. Motor strength 5/5 in all extremities. Sensory grossly intact. Cerebellar exam normal. Normal gait. Vital Signs: 10:16 BP 123 / 85; Pulse 62; Resp 16 S; Temp 98(O); Pulse Ox 96% on R/A; Weight 106.14 kg kc6 (R); Height 5 ft. 4 in. (R); 11:05 BP 130 / 82; Pulse 52; Resp 16 S; Pulse Ox 96% on R/A; kc6 10:16 Body Mass Index 40.17 (106.14 kg, 162.56 cm) kc6 MDM: 10:07 Medical Screening Exam initiated ci 11:33 Differential Diagnosis Dehydration, UTI, nephrolithiasis, pyelonephritis, gastritis, ci medication reaction. Data reviewed: vital signs, nurses notes. ED course: Patient p.o. challenged, tolerated well. CBC with no leukocytosis, low suspicion for intra-abdominal infectious pathology. Given history of kidney stones, CT abdomen/pelvis was obtained to rule out kidney stones as patient did complain of some flank pain.. 12/27 10:15 Order name: CBC with Diff; Complete Time: 11:32 ci 12/27 12:45 Interpretation: Within normal limits. ci 12/27 10:15 Order name: CMP; Complete Time: 11:32 ci 12/27 10:15 Order name: Lipase; Complete Time: 11:32 ci 12/27 10:15 Order name: Test, Urine; Complete Time: 11:32 ci 04 10:15 Order name: Urinalysis w/ reflexes; Complete Time: 11:32 ci 12/27 11:42 Order name: CT Abd/Pelvis - Without Contrast; Complete Time: 13:01 ci 12/27 13:01 Interpretation: No acute disease: No SBO, stone. ci 12/27 10:15 Order name: IV Saline Lock; Complete Time: 10:44 ci 12/27 10:15 Order name: Labs collected and sent; Complete Time: 10:44 ci Administered Medications: 10:55 Drug: Ondansetron IVP 4 mg IVP once; over 2 minutes Route: IVP; Site: right antecubital;kc6 12:25 Follow up: Response: No adverse reaction; Nausea is decreased kc6 10:55 Drug: NS 0.9% IV 1000 ml IV at 1 bolus Per protocol; to be given as a bolus over 60 kc6 minutes Route: IV; Rate: 1 bolus; Site: right antecubital; 13:15 Follow up: Response: No adverse reaction; IV Status: Completed infusion; IV Intake: kc6 1000ml Disposition Summary: 12/27/24 13:02 Discharge Ordered Notes: Location: Home ci Condition: Stable ci Diagnosis - Nausea with vomiting, unspecified ci - Diarrhea, unspecified ci - Dehydration ci Followup: ci - With: Private Physician - When: 2 - 3 days - Reason: Recheck today's complaints, Re-evaluation by your physician Discharge Instructions: - Discharge Summary Sheet ci - Dehydration, Adult ci - Diarrhea, Adult ci - Nausea and Vomiting, Adult ci Forms: - Work release form kc6 - Medication Reconciliation Form ci - Antibiotic Education ci - Prescription Opioid Use ci - Patient Portal Instructions ci - Leadership Thank You Letter ci Signatures: Dispatcher [employer] Mahi Rivero RN RN kc6 Benson Gao ci
[2024-12-27 13:19] VITALS: TEMP 98; O2SAT 96
[2024-12-27 13:20] VITALS: BP 130/82
== END 2024-12-27 13:14 | disposition home or self-care (01) ==
LOC: ER 10:00
DX: E86.0 Dehydration (principal); R19.7 Diarrhea, unspecified; E06.3 Autoimmune thyroiditis
CPT/HCPCS: 96361; 85025; 81001; 36415; 81025; 83690; 80053; 74176; 96374; 99284; J2405; J7030